=== PATIENT | female | born 1965 | race Hispanic/Latino ===

== ENCOUNTER 2019-02-27 19:32 | Emergency (ER) | payer OTHER, SELFPAY ==
--- OUTSIDE RECORDS SUMMARY | 2019-02-27 19:34 | XMS REPORT ---
:1965 Author Organization [facility] Address [address] [place] [address] Care Team Providers Name Role Phone Unavailable Unavailable Unavailable Problems This patient has no known problems. Allergies, Adverse Reactions, Alerts This patient has no known allergies or adverse reactions. Medications This patient has no known medications. Results Test Description Test Time Test Comments Text Results Atomic Results Result Comments SCR MAMM BILATERAL CAD 2018-12-31 15:50:34 - SCR MAMM BILATERAL CAD DIGITAL DIGITALBILATERAL DIGITAL SCREENING MAMMOGRAM 3D/2D WITH CAD: 12/20/2018CLINICAL: Asymptomatic. Digital breast tomosynthesis was performed in addition to routine CC and MLO views. Current mammographic images were evaluated by either a [employer] M-Vu or a [employer] ImageChecker CAD (computer aided detection system). Comparison is made to exam dated 02/02/2012 mammogram - [facility]. The tissue of both breasts is heterogeneously dense. This may lower the sensitivity of mammography. No suspicious mass, architectural distortion, malignant type calcification, or lymph node abnormality detected. Breast architecture is stable compared to prior exams.IMPRESSION: NEGATIVEThere is no mammographic evidence of malignancy. Resume annual screening mammography in one year. Your patient's mammogram demonstrates that she has dense breast tissue. This can hide abnormalities. In compliance with [place] law ([place]'s Law), your patient has been sent a letter which informs her of her breast density and notifies her that, depending on her individual risk factors for the development of breast cancer, she might benefit from additional screening tests such as ultrasound. Dense breast tissue, in and of itself, is a relatively common condition. Therefore, this information is not provided to cause undue concern, but rather to raise awareness and to promote discussion regarding the presence of other risk factors, in addition to dense breast tissue.Umang blanco/:12/31/2018 15:50:34 Reel Winder: Larissa Sanon MM, [facility] Mammographyletter sent: BIRADS 1-2 Normal Mammogram BI-RADS: 1 Negative
[2019-02-27] MEDS ORDERED: ONDANSETRON 4 MG/2 ML VIAL ONE (23:00)
[2019-02-27] MEDS ORDERED: NA CHLORIDE 0.9% 1,000 ML ONE (23:00)
[2019-02-27] MEDS ORDERED: FAMOTIDINE 20 MG/2 ML VIAL IV ONE (23:13)
[2019-02-27] MEDS ORDERED: KETOROLAC 30 MG/ML INJ ONE (23:13)
[2019-02-27 23:54] LABS: Absolute Lymphocytes (CBC) 0.3 K/uL (0.7-4.9); Absolute Monocytes 0.3 K/uL (0.1-1.3); Absolute Neutrophil 3.2 K/uL (1.8-8.0); Basophils % 0.2 % (0-1.3); Eosinophils % 0.2 % (0-4.4); Lymphocytes % 7.7 % (15.3-44.8); MPV 8.4 fL (7.6-11.3); Monocytes % 6.9 % (3.3-12.3); RBC Red Blood Cell Count 4.28 M/uL (3.86-4.86)
[2019-02-28 00:06] LABS: Albumin 3.3 g/dL (3.4-5.0); Bilirubin Direct 0.2 mg/dL (0-0.2); Bilirubin Total 0.7 mg/dL (0.2-1.0); Potassium 3.4 mmol/L (3.5-5.1); Protein, Total 6.8 g/dL (6.4-8.2)
--- NOTE | 2019-02-28 00:54 | EDPHYS ---
Physician Documentation [facility] Name: Dionne Robledo Age: 53 yrs Sex: Female : 1965 Arrival Date: 02/27/2019 Time: 19:44 Bed 23 Private MD: Hugo Hale ED Physician Juana Faustin HPI: 02/28 00:04 This 53 yrs old Female presents to ER via Ambulatory with complaints of Fever, ma2 Nausea, Diarrhea. 00:04 Onset: The symptoms/episode began/occurred gradually, 2 day(s) ago. Associated signs ma2 and symptoms: Pertinent negatives: abdominal pain, altered mental status, backache, night sweats. Associated signs and symptoms: Pertinent positives: diarrhea. Severity of symptoms: At their worst the symptoms were mild in the emergency department the symptoms are unchanged. The patient has not experienced similar symptoms in the past. 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 - Social history:: Smoking status: Patient uses tobacco products, denies chronic smoking, but will smoke occasionally, Patient uses Patient/guardian denies using alcohol, street drugs, The patient lives with family. - Ebola Screening: : Patient negative for fever greater than or equal to 101.5 degrees Fahrenheit, and additional compatible Ebola Virus Disease symptoms. - Family history:: not pertinent. ROS: 02/28 00:04 Constitutional: Negative for fever, chills, and weight loss. ma2 Abdomen/GI: Positive for diarrhea, Negative for nausea, rectal pain, bowel incontinence. All other systems are negative. Exam: 00:04 Constitutional: This is a well developed, well nourished patient who is awake, alert, ma2 and in no acute distress. Eyes: Pupils equal round and reactive to light, extra-ocular motions intact. Lids and lashes normal. Conjunctiva and sclera are non-icteric and not injected. Cornea within normal limits. Periorbital areas with no swelling, redness, or edema. ENT: Nares patent. No nasal discharge, no septal abnormalities noted. Tympanic membranes are normal and external auditory canals are clear. Oropharynx with no redness, swelling, or masses, exudates, or evidence of obstruction, uvula midline. Mucous membranes moist. Chest/axilla: Normal chest wall appearance and motion. Nontender with no deformity. No lesions are appreciated. Cardiovascular: Regular rate and rhythm with a normal S1 and S2. No gallops, murmurs, or rubs. Normal PMI, no JVD. No pulse deficits. Respiratory: Lungs have equal breath sounds bilaterally, clear to auscultation and percussion. No rales, rhonchi or wheezes noted. No increased work of breathing, no retractions or nasal flaring. Abdomen/GI: Soft, non-tender, with normal bowel sounds. No distension or tympany. No guarding or rebound. No evidence of tenderness throughout. MS/ Extremity: Pulses equal, no cyanosis. Neurovascular intact. Full, normal range of motion. Vital Signs: 02/27 20:14 BP 114 / 79; Pulse 94; Resp 17 S; Temp 100.0(TE); Pulse Ox 96% on R/A; Weight 77.56 kg jd3 (R); Height 5 ft. 4 in. (162.56 cm) (R); Pain 10/10; 02/28 00:26 BP 112 / 76; Pulse 90; Resp 18; Pulse Ox 99% ; Pain 0/10; jl3 02/27 20:14 Body Mass Index 29.35 (77.56 kg, 162.56 cm) jd3 MDM: 02/27 22:27 Patient medically screened. mn2 02/28 00:04 Differential diagnosis: viral Infection, bacterial infection, URI, bronchitis. mn2 00:53 Data reviewed: vital signs, nurses notes. Counseling: I had a detailed discussion with ma2 the patient and/or guardian regarding: the historical points, exam findings, and any diagnostic results supporting the discharge/admit diagnosis, the presence of at least one elevated blood pressure reading (>120/80) during this emergency department visit, the need for outpatient follow up. Response to treatment: the patient's symptoms have resolved after treatment. 02/27 21:02 Order name: Flu; Complete Time: 22:15 snw 02/27 21:02 Order name: Urine Culture [facility] 02/27 21:02 Order name: Urine Microscopic Only [facility] 02/27 22:27 Order name: Basic Metabolic Panel; Complete [facility]: [facility] 02/27 22:27 Order name: CBC with Diff; Complete [facility]: [facility] 02/27 22:27 Order name: Creatinine for Radiology; Complete [facility]: [facility]:41 [facility] 02/27 21:02 Order name: Urine Dipstick-Ancillary (obtain specimen); Complete Time: 00:24 [facility] 02/27 22:27 Order name: Hepatic Function; Complete Time: 00:41 mn2 02/27 22:27 Order name: Lipase; Complete Time: 00:41 [facility] 02/27 23:59 Order name: Urine Dipstick--Ancillary (enter results) 6 02/27 22:27 Order name: IV [facility] 02/27 22:27 Order name: Labs collected and sent [facility] 02/27 23:03 Order name: Labs - recollect needed; Complete Time: 00:23 cm6 Administered Medications: 02/27 22:50 Drug: Zofran 4 mg Route: IVP; Site: right antecubital; 3 02/28 00:23 Follow up: Response: No adverse reaction; Nausea is decreased [facility] 02/27 22:51 Drug: NS 0.9% 1000 ml Route: IV; Rate: 1 bolus; Site: right antecubital; 3 02/28 00:23 Follow up: Response: No adverse reaction; IV Status: Completed infusion; IV Intake: jl3 1000ml 02/27 23:06 Drug: TORadol 30 mg Route: IVP; Site: right antecubital; 3 02/28 00:24 Follow up: Response: No adverse reaction; Pain is decreased [facility] 02/27 23:06 Drug: Pepcid 20 mg Route: IVP; Site: right antecubital; 3 02/28 00:24 Follow up: Response: No adverse reaction; Nausea is decreased [facility] Disposition: 02/28/19 00:53 Discharged to Home. Impression: Diarrhea, unspecified. - Condition is Stable. - Discharge Instructions: Food Choices to Help Relieve Diarrhea, Adult, Diarrhea, Adult. - Prescriptions for Zofran 4 mg Oral Tablet - take 1 tablet by ORAL route every 12 hours As needed; 20 tablet. Pepcid 20 mg Oral Tablet - take 1 tablet by ORAL route once daily for 10 days; 10 tablet. - Medication Reconciliation Form, Thank You Letter, Antibiotic Education, Prescription Opioid Use form. - Follow up: Private Physician; When: Tomorrow; Reason: Continuance of care. Signatures: Dispatcher [employer] EDNM Anne Goodman, CHANO-C CONCRETE FORM SETTER-Csnw Cesar Osorio RN RN jl3 Ervin Rendon RN RN jd3 Juana Faustin MD MD ma2 Carline Sheldon 6 Corrections: (The following items were deleted from the chart) 02:19 00:53 02/28/2019 00:53 Discharged to Home. Impression: Diarrhea, unspecified. Condition jl3 is Stable. Forms are Medication Reconciliation Form, Thank You Letter, Antibiotic Education, Prescription Opioid Use. Follow up: Private Physician; When: Tomorrow; Reason: Continuance of care. ma2
--- NOTE | 2019-02-28 00:54 | ER ---
Nurse's Notes [facility] Name: Dionne Robledo Age: 53 yrs Sex: Female : 1965 Arrival Date: 02/27/2019 Time: 19:44 Bed 23 Private MD: Hugo Hale Diagnosis: Diarrhea, unspecified Presentation: 02/27 20:12 Presenting complaint: Patient states: "I have been running fevers at home and stomach jd3 pain/throwing up and diarrhea.". Transition of care: patient was not received from another setting of care. Onset of symptoms was February 27, 2019. Risk Assessment: Do you want to hurt yourself or someone else? Patient reports no desire to harm self or others. Initial Sepsis Screen: Does the patient meet any 2 criteria? No. Patient's initial sepsis screen is negative. Does the patient have a suspected source of infection? No. Patient's initial sepsis screen is negative. Care prior to arrival: None. 20:12 Method Of Arrival: Ambulatory jd3 20:12 Acuity: ANDRÉS 3 jd3 Triage Assessment: 02/28 02:17 General: Appears uncomfortable, obese, Behavior is calm, cooperative. Pain: Complains jl3 of pain in abdomen. EENT: No deficits noted. Neuro: No deficits noted. Cardiovascular: No deficits noted. Respiratory: Reports cough that is productive. GI: Bowel sounds present X 4 quads. Reports upper abdominal pain, nausea. : No deficits noted. Derm: No deficits noted. Musculoskeletal: No deficits noted. 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 - Social history:: Smoking status: Patient uses tobacco products, denies chronic smoking, but will smoke occasionally, Patient uses Patient/guardian denies using alcohol, street drugs, The patient lives with family. - Ebola Screening: : Patient negative for fever greater than or equal to 101.5 degrees Fahrenheit, and additional compatible Ebola Virus Disease symptoms. - Family history:: not pertinent. Screenin/05 02:16 Abuse screen: none noted. Nutritional screening: No deficits noted. Tuberculosis jl3 screening: No symptoms or risk factors identified. Fall Risk None identified. Assessment: 00:24 General: Pt c/o generalized pain, malaise, nausea. States has not felt well since jl3 Sunday.. Pain: Complains of pain in chest and abdomen. Neuro: No deficits noted. Cardiovascular: No deficits noted. Respiratory: No deficits noted. GI: Abdomen is round non-distended, Reports nausea. : No deficits noted. EENT: No deficits noted. Derm: No deficits noted. Musculoskeletal: No deficits noted. Vital Signs: 02/27 20:14 BP 114 / 79; Pulse 94; Resp 17 S; Temp 100.0(TE); Pulse Ox 96% on R/A; Weight 77.56 kg jd3 (R); Height 5 ft. 4 in. (162.56 cm) (R); Pain 10/10; 02/28 00:26 BP 112 / 76; Pulse 90; Resp 18; Pulse Ox 99% ; Pain 0/10; jl3 02/27 20:14 Body Mass Index 29.35 (77.56 kg, 162.56 cm) jd3 ED Course: 02/27 19:44 Patient arrived in ED. am2 19:45 Hugo Hale MD is Private Physician. am2 20:13 Triage completed. jd3 20:16 Arm band placed on Patient notified of wait time. jd3 22:26 Juana Faustin MD is Attending Physician. ma2 22:34 Al Arias, JAHAIRA is Primary Nurse. jb4 02/28 02:18 Patient has correct armband on for positive identification. jl3 02:18 No provider procedures requiring assistance completed. intact, bleeding controlled, No jl3 redness/swelling at site. Pressure dressing applied. Administered Medications: 02/27 22:50 Drug: Zofran 4 mg Route: IVP; Site: right antecubital; jl3 02/28 00:23 Follow up: Response: No adverse reaction; Nausea is decreased jl3 02/27 22:51 Drug: NS 0.9% 1000 ml Route: IV; Rate: 1 bolus; Site: right antecubital; jl3 02/28 00:23 Follow up: Response: No adverse reaction; IV Status: Completed infusion; IV Intake: jl3 1000ml 02/27 23:06 Drug: TORadol 30 mg Route: IVP; Site: right antecubital; jl3 02/28 00:24 Follow up: Response: No adverse reaction; Pain is decreased jl3 02/27 23:06 Drug: Pepcid 20 mg Route: IVP; Site: right antecubital; jl3 02/28 00:24 Follow up: Response: No adverse reaction; Nausea is decreased jl3 Intake: 00:23 IV: 1000ml; Total: 1000ml. jl3 Outcome: 00:53 Discharge ordered by . [email or web address] 02:18 Discharged to home ambulatory. jl3 02:18 Condition: good 02:18 Discharge instructions given to patient, Prescriptions given X 2. 02:19 Patient left the ED. jl3 Signatures: Cesar Osorio RN RN jl3 Al Arias RN RN jb4 Patricia Merino Jonathon, RN RN jd3 Juana Faustin MD MD ma2 Corrections: (The following items were deleted from the chart) 02/27 20:16 20:16 Arm band placed on jd3 jd3
[2019-02-28 01:18] LABS: Urine Bacteria <20 /HPF (<20); Urine Culture Reflex Order NOT NEEDED
[2019-02-28 01:19] LABS: Urine Blood 2+ (NEG); Urine Glucose NEGATIVE (NEG); Urine Protein 2+ (NEG); Urine pH 5.5 (5.0-7.0)
[2019-02-28 02:30] VITALS: TEMP 100
[2019-02-28 02:31] VITALS: BP 112/76; O2SAT 99
== END 2019-02-28 02:19 | disposition home or self-care (01) ==
LOC: ER 19:32
DX: R19.7 Diarrhea, unspecified (principal); Z86.73 Personal history of transient ischemic attack (TIA), and cerebral infarction without residual deficits; Z88.5 Allergy status to narcotic agent; Z72.0 Tobacco use
CPT/HCPCS: 36415; 80048; 80076; 81003; 81015; 83690; 85025; 87086; 87088; 87804; 96361; 96374; 96375; 99283; J2405; J7030

== ENCOUNTER 2020-01-25 08:29 | Emergency (ER) | payer OTHER, SELFPAY ==
[2020-01-25 09:24] LABS: Protime INR 1.06
[2020-01-25 09:25] LABS: Absolute Lymphocytes (CBC) 0.9 K/uL (0.7-4.9); Hematocrit 41.8 % (36.0-45.0); MPV 8.3 fL (7.6-11.3); RBC Red Blood Cell Count 4.58 M/uL (3.86-4.86)
[2020-01-25 09:37] LABS: ALT/SGPT 21 U/L (12-78); AST/SGOT 13 U/L (15-37); Albumin 3.8 g/dL (3.4-5.0); Alkaline Phosphatase 133 U/L (45-117); BUN Blood Urea Nitrogen 13 mg/dL (7-18); Bicarbonate 27 mmol/L (21-32); Bilirubin Direct 0.1 mg/dL (0-0.2); Bilirubin Total 0.5 mg/dL (0.2-1.0); Glucose Level 100 mg/dL (74-106); Magnesium 2.1 mg/dL (1.8-2.4); NT PRO-BNP 70 pg/mL (<125); Potassium 3.9 mmol/L (3.5-5.1); Protein, Total 7.8 g/dL (6.4-8.2); Sodium Level 141 mmol/L (136-145); Troponin (Emerg Dept Use Only) < 0.02 ng/mL (0.0-0.045)
--- NOTE | 2020-01-25 09:58 | RAD REPORT ---
EXAM DESCRIPTION: CT - Head Brain Wo Cont - 01/25/2020 9:31 am CLINICAL HISTORY: Right arm numbness Headache, drowsiness COMPARISON: HEAD BRAIN W O CONTRAST dated 02/04/2014; HEAD BRAIN W O CONTRAST dated 07/23/2010 TECHNIQUE: All CT scans are performed using dose optimization technique as appropriate and may inclu de automated exposure control or mA/KV adjustment according to patient size. FINDINGS: No intracranial hemorrhage, hydrocephalus or extra-axial fluid collection.Gliosis is seen right frontotemporal region, unchanged, likely attributable to prior infarction.No areas of brain sumanth ma or evidence of midline shift. The paranasal sinuses and mastoids are clear. The calvarium is intact. Generalized osteosclerosis is identified. IMPRESSION: No acute intracranial abnormality.
[2020-01-25] MEDS ORDERED: KETOROLAC 30 MG/ML INJ ONE (10:26)
--- NOTE | 2020-01-25 11:49 | ER ---
Nurse's Notes [facility] Name: Dionne Robledo Age: 54 yrs Sex: Female : 1965 Arrival Date: 01/25/2020 Time: 08:31 Bed 7 Private MD: Diagnosis: Paresthesia of skin;Strain of muscle, fascia and tendon at neck level Presentation: 01/24 08:41 Chief complaint: Patient states: started with a knot in right jaw about a week ago, iw since then has had numbness to right arm from shoulder down to hand , also has had pain in right arm to where she can;t sleep, denies weakness. Coronavirus screen: The patient has NOT traveled to [place] in the past 14 days. Proceed with normal triage procedures. Ebola Screen: Patient negative for fever greater than or equal to 101.5 degrees Fahrenheit, and additional compatible Ebola Virus Disease symptoms Patient denies exposure to infectious person. Patient denies travel to an Ebola-affected area in the 21 days before illness onset. No symptoms or risks identified at this time. Initial Sepsis Screen: Does the patient meet any 2 criteria? No. Patient's initial sepsis screen is negative. Does the patient have a suspected source of infection? No. Patient's initial sepsis screen is negative. Risk Assessment: Do you want to hurt yourself or someone else? Patient reports no desire to harm self or others. 08:41 Method Of Arrival: Ambulatory iw 08:41 Acuity: ANDRÉS 3 iw Historical: - Allergies: 08:44 Codeine; iw - Home Meds: 08:44 None [Active]; iw - PMHx: 08:44 CVA; iw 08:44 hepatitis C resolved; iw - PSHx: 08:44 Cholecystectomy; Appendectomy; Left ankle; iw - Immunization history:: Adult Immunizations not up to date. - Social history:: Smoking status: . Screenin:50 Abuse screen: Denies threats or abuse. Nutritional screening: No deficits noted. aa5 Tuberculosis screening: No symptoms or risk factors identified. 09:20 Fall Risk Secondary diagnosis (15 points) CVA, IV access (20 points). aa5 Assessment: 08:50 General: Appears comfortable, Behavior is calm, cooperative. Pain: Complains of pain in aa5 right arm Pain does not radiate. Pain currently is 9 out of 10 on a pain scale. Quality of pain is described as numb, Is continuous. Neuro: Level of Consciousness is awake, alert, obeys commands, Oriented to person, place, time, situation, Center Medical Specialist are equal bilaterally Moves all extremities. Speech is normal, Facial symmetry appears normal, Pupils are PERRLA, Reports numbness in right arm. Cardiovascular: Heart tones S1 S2 present Rhythm is regular. Respiratory: Airway is patent Respiratory effort is even, unlabored, Respiratory pattern is regular, symmetrical. GI: No signs and/or symptoms were reported involving the gastrointestinal system. : No signs and/or symptoms were reported regarding the genitourinary system. EENT: No signs and/or symptoms were reported regarding the EENT system. Derm: Skin is pink, warm \T\ dry. Musculoskeletal: Range of motion: intact in all extremities. 10:15 Reassessment: Patient is alert, oriented x 3, equal unlabored respirations, skin aa5 warm/dry/pink. Pt requesting pain medication at this time. Pt's sister at bedside. KEEPER HELPER notified of increased pain. . General: Appears comfortable. Pain: Pain currently is 10 out of 10 on a pain scale. 11:00 Reassessment: Patient is alert, oriented x 3, equal unlabored respirations, skin aa5 warm/dry/pink. Patient states feeling better. Vital Signs: 08:41 BP 124 / 79; Pulse 61; Resp 16; Temp 98.3; Pulse Ox 97% on R/A; Weight 81.65 kg; Height iw 5 ft. 4 in. (162.56 cm); Pain 9/10; 10:15 BP 127 / 77; Pulse 54; Resp 18 S; Pulse Ox 96% on R/A; Pain 10/10; aa5 11:30 BP 130 / 74; Pulse 58; Resp 16 S; Pulse Ox 99% on R/A; aa5 08:41 Body Mass Index 30.90 (81.65 kg, 162.56 cm) iw ED Course: 08:31 Patient arrived in ED. rg4 08:43 Triage completed. iw 08:45 Bhargav Weaver NP is PHCP. pm1 08:45 Edinson Rod MD is Attending Physician. pm1 08:50 Patient has correct armband on for positive identification. Placed in gown. Bed in low aa5 position. Call light in reach. Side rails up X2. pharmaceutical engineer on. Pulse ox on. NIBP on. 08:50 Arm band placed on. aa5 08:52 Melanie Singleton, RN is Primary Nurse. aa5 09:07 XRAY Chest (1 view) In Process Unspecified. EDMS 09:11 Initial lab(s) drawn, by me, sent to lab. EKG done, by ED staff, reviewed by Bhargav Weaver KEEPER HELPER. Inserted saline lock: 22 gauge in right antecubital area, using aseptic technique. Blood collected. 09:31 CT Head Brain wo Cont In Process Unspecified. EDMS 09:31 CT completed. Patient tolerated procedure well. Patient moved back from CT. bq 12:15 No provider procedures requiring assistance completed. IV discontinued, intact, aa5 bleeding controlled, No redness/swelling at site. Pressure dressing applied. Administered Medications: 10:24 Drug: TORadol 30 mg Route: IVP; Site: right antecubital; aa5 11:00 Follow up: Response: No adverse reaction; Pain is decreased aa5 Outcome: 11:48 Discharge ordered by MD. pm1 12:15 Discharged to home ambulatory, with family. aa5 12:15 Condition: stable 12:15 Discharge instructions given to patient, Instructed on discharge instructions, follow up and referral plans. medication usage, Demonstrated understanding of instructions, follow-up care, medications, Prescriptions given X 2. 12:17 Patient left the ED. iw Signatures: Dispatcher [employer] EDCesar Swan Betty bq Williams, Irene, RN RN Melanie Singleton, JAHAIRA RN aaBhargav Calderón NP KEEPER HELPER pm1 Radha Ma rg4 Corrections: (The following items were deleted from the chart) 08:45 08:41 BP 124 / 79; Pulse 61bpm; Resp 16bpm; Pulse Ox 97% RA; iw iw
--- NOTE | 2020-01-25 11:49 | EDPHYS ---
Physician Documentation [facility] Name: Dionne Robledo Age: 54 yrs Sex: Female : 1965 Arrival Date: 01/25/2020 Time: 08:31 Bed 7 Private MD: Edinson Abdalla HPI: 01/24 09:16 This 54 yrs old Female presents to ER via Ambulatory with complaints of pm1 Numbness and Pain Of Right Arm. 09:16 The patient or guardian complains of pain, numbness. The complaints affect the right pm1 arm. Context: Patient notes that pain and numbness is present in the morning and resolves when she goes to work. It returns just before her work ends for the day around 3-4 PM. this has been the pattern for the past 7 days. Onset: The symptoms/episode began/occurred 1 week(s) ago. Treatment prior to arrival includes: no previous treatment. Modifying factors: The symptoms are alleviated by working and movement of arm. Associated signs and symptoms: Pertinent negatives: decreased range of motion, fever, Weakness of right arm, trauma, headache. It is unknown whether or not the patient has recently seen a physician. Historical: - Allergies: 08:44 Codeine; iw - Home Meds: 08:44 None [Active]; iw - PMHx: 08:44 CVA; iw 08:44 hepatitis C resolved; iw - PSHx: 08:44 Cholecystectomy; Appendectomy; Left ankle; iw - Immunization history:: Adult Immunizations not up to date. - Social history:: Smoking status: . ROS: 09:16 Constitutional: Negative for fever, chills, and weight loss, Eyes: Negative for injury, pm1 pain, redness, and discharge, ENT: Negative for injury, pain, and discharge, Neck: Negative for injury, pain, and swelling, Cardiovascular: Negative for chest pain, palpitations, and edema, Respiratory: Negative for shortness of breath, cough, wheezing, and pleuritic chest pain, Abdomen/GI: Negative for abdominal pain, nausea, vomiting, diarrhea, and constipation, Back: Negative for injury and pain. 09:16 Skin: Negative for injury, rash, and discoloration, Neuro: Negative for headache, weakness, and seizure. 09:16 MS/extremity: Positive for pain, paresthesias, of the right arm, Negative for injury or acute deformity, decreased range of motion. Exam: 09:16 Constitutional: This is a well developed, well nourished patient who is awake, alert, pm1 and in no acute distress. Head/Face: Normocephalic, atraumatic. Chest/axilla: Normal chest wall appearance and motion. Nontender with no deformity. No lesions are appreciated. Cardiovascular: Regular rate and rhythm with a normal S1 and S2. No gallops, murmurs, or rubs. Normal PMI, no JVD. No pulse deficits. Respiratory: Lungs have equal breath sounds bilaterally, clear to auscultation and percussion. No rales, rhonchi or wheezes noted. No increased work of breathing, no retractions or nasal flaring. Abdomen/GI: Soft, non-tender, with normal bowel sounds. No distension or tympany. No guarding or rebound. No evidence of tenderness throughout. 09:16 Back: No spinal tenderness. No costovertebral tenderness. Full range of motion. Skin: Warm, dry with normal turgor. Normal color with no rashes, no lesions, and no evidence of cellulitis. MS/ Extremity: Pulses equal, no cyanosis. Neurovascular intact. Full, normal range of motion. 09:16 Neck: External neck: tenderness, of the right trapezius. 09:16 Neuro: Orientation: is normal, Mentation: is normal, Motor: is normal, moves all fours, Sensation: is normal, no obvious gross deficits, Gait: is steady, at a normal pace, without difficulty. Vital Signs: 08:41 BP 124 / 79; Pulse 61; Resp 16; Temp 98.3; Pulse Ox 97% on R/A; Weight 81.65 kg; Height iw 5 ft. 4 in. (162.56 cm); Pain 9/10; 10:15 BP 127 / 77; Pulse 54; Resp 18 S; Pulse Ox 96% on R/A; Pain 10/10; aa5 11:30 BP 130 / 74; Pulse 58; Resp 16 S; Pulse Ox 99% on R/A; aa5 08:41 Body Mass Index 30.90 (81.65 kg, 162.56 cm) iw MDM: 08:45 Patient medically screened. pm1 11:47 Data reviewed: vital signs. Data interpreted: Pulse oximetry: on room air is 96 %. pm1 Interpretation: normal. 11:47 Counseling: I had a detailed discussion with the patient and/or guardian regarding: the pm1 historical points, exam findings, and any diagnostic results supporting the discharge/admit diagnosis, lab results, radiology results, the need for outpatient follow up, to return to the emergency department if symptoms worsen or persist or if there are any questions or concerns that arise at home. 01/24 08:54 Order name: Basic Metabolic Panel; Complete Time: 10:06 pm1 01/24 08:54 Order name: CBC with Diff; Complete Time: 10:06 pm1 01/24 08:54 Order name: LFT's; Complete Time: 10:06 pm1 01/24 08:54 Order name: Magnesium; Complete Time: 10:06 pm1 01/24 08:54 Order name: NT PRO-BNP; Complete Time: 10:06 pm1 01/24 08:54 Order name: PT-INR; Complete Time: 10:06 pm1 01/24 08:54 Order name: CT Head Brain wo Cont; Complete Time: 10:06 pm1 01/24 08:54 Order name: Troponin (emerg Dept Use Only); Complete Time: 10:06 pm1 01/24 08:54 Order name: XRAY Chest (1 view); Complete Time: 12:38 pm1 01/24 08:54 Order name: EKG; Complete Time: 08:56 pm1 01/24 08:54 Order name: Cardiac monitoring; Complete Time: 09:11 pm1 01/24 08:54 Order name: EKG - Nurse/Tech; Complete Time: 09:12 pm1 01/24 08:54 Order name: IV Saline Lock; Complete Time: 09:12 pm01/24 08:54 Order name: Labs collected and sent; Complete Time: 09:12 pm1 01/24 08:54 Order name: O2 Per Protocol; Complete Time: 09:12 pm1 01/24 08:54 Order name: O2 Sat Monitoring; Complete Time: 09:12 pm1 Administered Medications: 10:24 Drug: TORadol 30 mg Route: IVP; Site: right antecubital; aa5 11:00 Follow up: Response: No adverse reaction; Pain is decreased aa5 Disposition: 18:10 Co-signature as Attending Physician, Edinson Rod MD I agree with the assessment and sindi plan of care. Disposition: 01/25/20 11:48 Discharged to Home. Impression: Paresthesia of skin, Strain of muscle, fascia and tendon at neck level. - Condition is Stable. - Discharge Instructions: Cervical Radiculopathy, Muscle Strain, Paresthesia. - Prescriptions for Diclofenac Sodium 75 mg Oral Tablet, Delayed Release (E.C.) - take 1 tablet by ORAL route 2 times per day As needed; 30 tablet. Medrol (Carlos) 4 mg Oral Tablets, Dose Pack - take 1 tablet by ORAL route as directed - follow package instructions; 1 packet. - Medication Reconciliation Form, Thank You Letter, Antibiotic Education, Prescription Opioid Use form. - Follow up: Emergency Department; When: As needed; Reason: Worsening of condition. Follow up: Private Physician; When: 2 - 3 days; Reason: Recheck today's complaints, Continuance of care, Re-evaluation by your physician. Signatures: Dispatcher [employer] Edinson Astorga MD MD cha Williams, Irene, RN RN iw Calderon, Audri, RN RN aa5 Bhargav Weaver NP SANDER PORTABLE MACHINE pm1 Corrections: (The following items were deleted from the chart) 12:17 11:48 01/25/2020 11:48 Discharged to Home. Impression: Paresthesia of skin; Strain of iw muscle, fascia and tendon at neck level. Condition is Stable. Forms are Medication Reconciliation Form, Thank You Letter, Antibiotic Education, Prescription Opioid Use. Follow up: Emergency Department; When: As needed; Reason: Worsening of condition. Follow up: Private Physician; When: 2 - 3 days; Reason: Recheck today's complaints, Continuance of care, Re-evaluation by your physician. pm1
--- NOTE | 2020-01-25 12:15 | RAD REPORT ---
EXAM DESCRIPTION: RAD - Chest Single View - 01/25/2020 9:04 am CLINICAL HISTORY: right arm numbness Chest pain. COMPARISON: CHEST SINGLE VIEW dated 02/04/2014; CHEST SINGLE VIEW dated 05/21/2012; CHEST SINGLE VIEW dated 07/23/2010 FINDINGS: Portable technique limits examination quality. The lungs are grossly clear. The heart is normal in size. No displaced fractures.Diffuse osteoscleros is again noted, nonspecific. IMPRESSION: No acute intrathoracic process suspected.
[2020-01-25 12:24] VITALS: TEMP 98.3
[2020-01-25 12:26] VITALS: BP 127/77; O2SAT 96
--- NOTE | 2020-01-26 15:36 | EKG ---
Test Date: 2020-01-25 Test Time: 09:04:27 Windows Security Engineer: CRISTAL MEASUREMENT RESULTS: Intervals: Rate: 53 VA: 158 QRSD: 84 QT: 390 QTc: 365 Pickrell: P: 40 VA: 158 QRS: -21 T: 1 INTERPRETIVE STATEMENTS: Sinus bradycardia Abnormal ECG Compared to ECG 02/04/2014 11:51:24 Sinus rhythm no longer present Electronically Signed On 01-26-20 15:35:38 SENIOR ELECTRONICS DESIGN ENGINEER by Farshad Fowler
== END 2020-01-25 12:17 | disposition home or self-care (01) ==
LOC: ER 08:29
DX: R20.2 Paresthesia of skin (principal); S16.1XXA Strain of muscle, fascia and tendon at neck level, initial encounter; X58.XXXA Exposure to other specified factors, initial encounter; Z88.6 Allergy status to analgesic agent
CPT/HCPCS: 36415; 70450; 71045; 80048; 80076; 83735; 83880; 84484; 85025; 85610; 93005; 96374; 99285

== ENCOUNTER 2020-05-11 09:50 | Emergency (ER) | payer OTHER ==
[2020-05-11] MEDS ORDERED: FOLIC ACID 5 MG/ML VIAL ONE (10:36)
[2020-05-11] MEDS ORDERED: NA CHLORIDE 0.9% 1,000 ML ONE (10:36)
--- NOTE | 2020-05-11 11:06 | RAD REPORT ---
EXAM DESCRIPTION: CT - Head Brain Wo Cont - 05/11/2020 10:54 am CLINICAL HISTORY: CVA COMPARISON: Head Brain Wo Cont dated 01/25/2020 TECHNIQUE: Axial 5 mm thick images of the head were obtained without IV contrast. All CT scans are performed using dose optimization technique as appropriate and may include automated exposure control or mA/KV adjustment according to patient size. FINDINGS: No intracranial hemorrhage, mass, edema or shift of mid-line structures. No acute cortical based infarction is identified. No cortical edema or sulcal effacement. Approximately 5 centimeter a chandan of encephalomalacia is present in the right frontal lobe and minimally in the anterior temporal l obe. Right lateral ventricle has enlarged in proportion to the volume loss. This old CVA finding is s imilar to the January 2020 study. An 11 millimeter area of decreased attenuation is present in the posterior limb internal capsule and lateral thalamus region on the right. This is on the boundary of the old CVA. Patient has additional minimal scattered areas of diminished attenuation along the boundary of the old infarction. Scattered chronic ischemic changes are present. No atrophy seen. Mastoid air cells and visualized portions of the paranasal sinuses are clear. No acute bony findings. IMPRESSION: No hemorrhage is present and no acute cortical infarction identifiable. Decreased attenuation in the right posterior limb internal capsule region is potentially nonhemorrhag ic acute CVA. This is on the boundary of the old infarction. Approximately 5 centimeter area of encephalomalacia from prior CVA is present in the right frontal lo be. Finding is not substantially different from January 2020. Additional small areas of nonhemorrhagic white matter infarction could be obscured by the chronic sindi nges. Follow-up MRI imaging would be recommended.
--- NOTE | 2020-05-11 11:31 | RAD REPORT ---
EXAM DESCRIPTION: MRI - Brain Wo Cont - 05/11/2020 11:18 am CLINICAL HISTORY: R/O CVA COMPARISON: MR STROKE PROTOCOL dated 07/25/2010; Head Brain Wo Cont dated 05/11/2020 TECHNIQUE: Sagittal T1-weighted images were obtained along with axial PD, heavily T2-weighted and T2 -FLAIR images. Axial DWI and ADC mapping sequences were also obtained along with coronal heavily T2-w eighted images. FINDINGS: No acute infarction changes are present and no intracranial hemorrhage, mass or edema. The re is no edema or shift of midline structures. Large area of encephalomalacia is present centered in the right frontal lobe. This is similar to prior imaging. Right lateral ventricle has enlarged in pro portion to the volume loss. No significant atrophy or chronic ischemic changes seen. Isbell-matter/whit e matter junction is preserved. Signal voids are seen in the major venous sinuses. Normal flow voids seen in the anterior cerebral arteries and left middle cerebral artery. Truncation of the right middl e cerebral artery is suspected. Posterior cerebral artery flow voids are seen. No globe or orbital content abnormality. Mastoid air cells are clear. Mucosal thickening seen in the left side sphenoid sinus. IMPRESSION: No acute infarction changes are identifiable. Old right frontal CVA changes are noted. 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
--- OUTSIDE RECORDS SUMMARY | 2020-05-11 11:59 | XMS REPORT | Summary of Care ---
:1965 Author Organization [facility] Address [address] [place] [address] Care Team Providers Name Role Phone Dante Castro Darlene Primary Care Provider Reason for Visit Reason Comments Follow-up Encounter Details Date Type Department Care Team Description 04/16/2020 Telemedicine Visit [facility] O'Shakila, Hepatitis C virus infection without hepatic coma, unspecified chronicity (Primary Dx); Gastroenterology-LUCIA Qiu Fatty liver [address] [place] [address] [address] [phone] [place], [place] [phone] (Fax) [phone] Allergies Active Allergy Reactions Severity Noted Date Comments Codeine Nausea and/or Vomiting 05/16/2018 documented as of this encounter (statuses as of 04/16/2020) Medications Medication Sig Dispensed Refills Start Date End Date Status dicyclomine (BENTYL) 20 Take 1 tablet by 30 tablet 0 8 Active mg tablet mouth 4 (four) times daily as needed for Abdominal pain for up to 30 doses. aspirin 81 mg chewable Take 81 mg by 0 Active tablet mouth daily. phenazopyridine 200 mg Take 1 tablet by 9 tablet 0 05/19/2019 Active tabletIndications: mouth 3 (three) Acute cystitis with times daily as hematuria needed for Pain. ibuprofen 600 mg Take 1 tablet by 30 tablet 0 05/19/2019 Active tabletIndications: mouth every 6 Acute cystitis with (six) hours as hematuria needed for Pain (scale 4-6). documented as of this encounter (statuses as of 04/16/2020) Active Problems Problem Noted Date Chronic hepatitis C virus infection 08/22/2019 documented as of this encounter (statuses as of 04/16/2020) Social History Tobacco Use Types Packs/Day Years Used Date Current Some Day Smoker Smokeless Tobacco: Current User Alcohol Use Drinks/Week oz/Week Comments Yes Sex Assigned at Date Recorded Not on file Job Start Date Occupation Industry Not on file Not on file Not on file Travel History Travel Start Travel End No recent travel history available. documented as of this encounter Last Filed Vital Signs Not on filedocumented in this encounter Progress Notes Malka Franco PA - 04/16/2020 3:00 PM CDT TELEHEALTH NOTE Verbal consent obtained from Patient: Dionne Robledo for telehealth services provided below. Communication with patient was conducted via telephone Location of Patient: Home Location of Provider: Office Date of Service: 04/16/2020 Chief Complaint: HCV, routine f/u, recently dx per routine labs, she completed 8 wks of Mavyret on Jan 11, she tolerated tx well, no side effects, her energy has improved, virus possiblyacquired s/s to multtattoos dating back to age 13 vs ex-boy friend in the late 80's who was [employer] user, she recalls being told years ago her liver tests were elevated, butdoes not go to doctor often d/t lack ofinsurance, no hx icterus/edema/gi bleeding/change bm/AMS MEDICATIONS: Outpatient Medications Marked as Taking for the 04/16/20 encounter (Telemedicine Visit) with Malka Franco PA Medication Sig Dispense Refill ibuprofen 600 mg tablet Take 1 tablet by mouth every 6 (six) hours as needed for Pain (scale 4-6). 30 tablet 0 phenazopyridine 200 mg tablet Take 1 tablet by mouth 3 (three) times daily as needed for Pain. 9tablet 0 aspirin 81 mg chewable tablet Take 81 mg by mouth daily. dicyclomine (BENTYL) 20 mg tablet Take 1 tablet by mouth 4 (four) times daily as needed for Abdominal pain for up to 30 doses. 30 tablet 0 ROS CONSTITUTIONAL: no fever/chills/night sweats ENT: no icterus/epistasis RESP: no dyspnea/cough GI: no N/V/D/C/change bm/GIB MS: no joint pain SKIN: no pruritis/rash NEURO: no seizure/LOC HEME: no bruising/prolong bleeding TELEHEALTH EXAM GEN: alert and oriented, NAD RESP: breathing comfortably Neuro: answer questions appropriately, speech is clear Psych: normal affect, mentation is clear ASSESSMENT HCV 1a s/p Mavyret x 8wks w/EOT response Elevated alk phos (all bone) Fatty liver - OSH US 12/14 S/P cholecytectomy PLAN Labs to check for SVR (next week w/[facility]) OSH abd US reviewed Recommend f/u with [facility] for HAV/HBV vaccine series and further f/u of elevated alk phos F/U 1yr (sooner if virus relapses) After visit summary (AVS ) documentation will be available through [employer] for this encounter. A total of minutes was spent on the telephone with the patient. documented in this encounter Plan of Treatment Name Type Priority Associated Diagnoses Order S chedule HEPATIC FUNCTION PANEL LAB Routine Hepatitis C virus Expected: 04/16/2020, ([id number]) (ALB,T.PRO,BILI infection without hepatic Expires: 04/16/2021 T,BU/BC,ALT,AST,ALK coma, unspecified PHOS) chronicity Fatty liver HCV BY PCR LAB Routine Hepatitis C virus Expected: 04/16/2020, infection without hepatic Ex gabriela: 04/16/2021 coma, unspecified chronicity Fatty liver Health Maintenance Due Date Last Done Comments HEPATITIS C (HCV) SCREEN 1965 PNEUMOCOCCAL 0-64 YEARS COMBINED SERIES (1 of 1 - 1971 PPSV23) DTaP,Tdap,and Td Vaccines (1 - Tdap) 1976 PAP SMEAR 1986 Breast Cancer Screening (MAMMOGRAM) 2005 COLONOSCOPY 2015 Zoster Recombinant Vaccine (SHINGRIX) (1 of 2) 2015 INFLUENZA VACCINE (Season Ended) 2020 documented as of this encounter Results Not on filedocumented in this encounter Visit Diagnoses Diagnosis Hepatitis C virus infection without hepa tic coma, unspecified chronicity - Primary Fatty liver Other chronic nonalcoholic liver disease documented in this encounter
--- OUTSIDE RECORDS SUMMARY | 2020-05-11 11:59 | XMS REPORT | Summary of Care ---
:1965 Author Organization [facility] Address [address] [place] [address] Care Team Providers Name Role Phone Dante Castro Primary Care Provider Encounter Details Date Type Department Care Team Description 02/16/2020 Orders Only [facility] Doctor Unassigned, No [address] [facility] [place] [address] [address] [place] [address] Allergies Active Allergy Reactions Severity Noted Date Comments Codeine Nausea and/or Vomiting 05/16/2018 documented as of this encounter (statuses as of 02/16/2020) Medications Medication Sig Dispensed Refills Start Date [...] as of this encounter (statuses as of 02/16/2020) Active Problems Problem Noted Date Chronic hepatitis C virus infection 08/22/2019 documented as of this encounter (statuses as of 02/16/2020) Social History Tobacco Use Types Packs/Day Years [...] Signs Not on filedocumented in this encounter Plan of Treatment Date Type Specialty Care Team Description 04/16/2020 Office Visit Gastroenterology OVarsha Boyd, PA [address] [place] [id number] Health Maintenance Due Date Last Done Comments HEPATITIS C (HCV) SCREEN 1965 PNEUMOCOCCAL 0-64 YEARS COMBINED SERIES (1 of 1 - 1971 PPSV23) DTaP,Tdap,and Td Vaccines (1 - Tdap) 1976 PAP SMEAR 1986 Breast Cancer Screening (MAMMOGRAM) 2005 COLONOSCOPY 2015 Zoster Recombinant Vaccine (SHINGRIX) (1 of 2) 2015 INFLUENZA VACCINE (#1) 2019 documented as of this encounter Procedures Procedure Name Priority Date/Time Associated Diagnosis Comme nts EXTERNAL PROVIDER Routine 02/16/2020 12:01 AM CDT RECORDS documented in this encounter Results Not on filedocumented in this encounter
--- OUTSIDE RECORDS SUMMARY | 2020-05-11 11:59 | XMS REPORT | Continuity of Care Document ---
:1965 Author Organization [facility] t Address [address] [place] [address] Care Team Providers Name Role Phone Joan MYERS Attending Clinician Doctor Unassigned, Name Attending Clinician Unavailable Problems This patient has no known problems. Allergies, Adverse Reactions, Alerts This patient has no known allergies or adverse reactions. Medications This patient has no known medications. Procedures This patient has no known procedures. Encounters Start End Encounter Admission Attending Care Care Encounter Source Date/Time Date/Time Type Type Clinicians Facility Department ID 2020-04-22 2020-04-22 Telephone YARON Franco [id number] 00:00:00 00:00:00 [facility] [id number] [place] [id number] 2020-04-16 2020-04-16 Telemedici YARON Franco [id number] 07:41:39 08:11:39 ne Visit [facility] [id number] 2020-02-16 2020-02-16 Orders Doctor GIANG [id number] 00:00:00 00:00:00 Only Unassigned, KIRA [id number] [place] [id number] 2020-01-29 2020-01-29 Orders Doctor RAHAT [id number] 00:00:00 00:00:00 Only Unassigned, KIRA [id number] [place] [facility] [id number] 2020-01-27 2020-01-27 Telephone YARON Franco [id number] 00:00:00 00:00:00 [facility] [id number] 2020-01-22 2020-01-22 Telephone ODeb [facility] [id number] 00:00:00 00:00:00 [facility] [id number] Results Test Description Test Time Test Comments Results Result [facility] e Comments SCR MAMM 2018-12-31 - SCR MAMM BILATERAL BILATERAL CAD 15:50:34 CAD DIGITALBILATERAL DIGITAL DIGITAL SCREENING MAMMOGRAM 3D/2D WITH CAD: 12/20/2018CLINICAL: Asymptomatic. Digital breast tomosynthesis was performed in addition to routine CC and MLO views. Current mammographic images were evaluated by either a [employer] M-Vu or a [employer] ImageChecker CAD (computer aided detection system). Comparison [...] factors, in addition to dense breast tissue.Umang Valdez M.D. rb/:12/31/2018 15:50:34 Porter Sample Case: Larissa Sanon MM, [facility] Mammographyletter sent: BIRADS 1-2 Normal Mammogram BI-RADS: 1 Negative
--- OUTSIDE RECORDS SUMMARY | 2020-05-11 12:00 | XMS REPORT | Summary of Care ---
:1965 Author Organization [facility] Address [address] [place] [address] Care Team Providers Name Role Phone Dante Castro Darlene Primary Care Provider Reason for Visit Reason Comments Orders Encounter Details Date Type Department Care Team Description 04/22/2020 Telephone [facility] Nel Franco PA Orders Gastroenterology-[address] [place] [address] [place] [address] [phone] [place] [address] Allergies Active Allergy Reactions Severity Noted Date Comments Codeine Nausea and/or Vomiting 05/16/2018 documented as of this encounter (statuses as of 04/22/2020) Medications Medication Sig Dispensed Refills Start Date [...] as of this encounter (statuses as of 04/22/2020) Active Problems Problem Noted Date Chronic hepatitis C virus infection 08/22/2019 documented as of this encounter (statuses as of 04/22/2020) Social History Tobacco Use Types Packs/Day Years [...] filedocumented in this encounter Plan of Treatment Health Maintenance Due Date Last Done Comments HEPATITIS C (HCV) SCREEN 1965 PNEUMOCOCCAL 0-64 YEARS COMBINED SERIES (1 of 1 - 1971 PPSV23) DTaP,Tdap,and Td Vaccines (1 - Tdap) 1976 PAP SMEAR 1986 Breast Cancer Screening (MAMMOGRAM) 2005 COLONOSCOPY 2015 Zoster Recombinant Vaccine (SHINGRIX) (1 of 2) 2015 INFLUENZA VACCINE (Season Ended) 2020 Depression Screening 08/22/2020 08/22/2019 documented as of this encounter Results Not on filedocumented in this encounter
--- NOTE | 2020-05-11 12:23 | RAD REPORT ---
EXAM DESCRIPTION: RAD - Chest Single View - 05/11/2020 12:02 pm CLINICAL HISTORY: COUGH COMPARISON: Single-view January 2020 TECHNIQUE: AP portable chest image was obtained 05/11/2020 12:02 pm . FINDINGS: Lung volumes are relatively low. No peripheral mass or consolidation. Interstitial pattern is not clearly different from the prior examination. No failure or volume overload seen. Heart and vasculature are normal. No measurable pleural effusion and no pneumothorax. No acute bony abnormality seen. No acute aortic findings suspected. IMPRESSION: No acute cardiopulmonary process. No significant change from comparison.
--- NOTE | 2020-05-11 12:27 | ER ---
Nurse's Notes [facility] Name: Dionne Robledo Age: 54 yrs Sex: Female : 1965 Arrival Date: 05/11/2020 Time: 09:51 Bed 19 Private MD: Diagnosis: Fraser's palsy Presentation: 05/11 09:58 Chief complaint: Blurred vision, tingling of lips and tongue since yesterday morning, hb left sided facial droop and slurred speech upon waking today. VAN NEGATIVE. Hx of CVA with left sided weakness. Coronavirus screen: Proceed with normal triage. Ebola Screen: No symptoms or risks identified at this time. Initial Sepsis Screen: Does the patient meet any 2 criteria? No. Patient's initial sepsis screen is negative. Does the patient have a suspected source of infection? No. Patient's initial sepsis screen is negative. Risk Assessment: Do you want to hurt yourself or someone else? Patient reports no desire to harm self or others. Onset of symptoms was May 10, 2020. 09:58 Method Of Arrival: Ambulatory 09:58 Acuity: ANDRÉS 3 hb Historical: - Allergies: 10:00 Codeine; hb - PMHx: 10:00 CVA; hepatitis C resolved; hb - PSHx: 10:00 Cholecystectomy; Appendectomy; Left ankle; hb - Immunization history:: Adult Immunizations up to date. - Social history:: Smoking status: Patient reports the use of cigarette tobacco products, smokes one-half pack cigarettes per day. - Family history:: not pertinent. Screenin:04 Abuse screen: Denies threats or abuse. Nutritional screening: No deficits noted. Tuberculosis screening: No symptoms or risk factors identified. Fall Risk None identified. Assessment: 10:35 VAN Scoring: Arm Drift: Patients demonstrates NO arm weakness. Patient is VAN Negative. sv T-PA (Activase) Screening: Contraindications: Patient reports onset of signs and symptoms of stroke greater than 6 hours ago:. General: Appears in no apparent distress. comfortable, Behavior is calm, cooperative, appropriate for age. Pain: Complains of pain in forehead, right yarsanism and left yarsanism Pain currently is 2 out of 10 on a pain scale. Neuro: Level of Consciousness is awake, alert, obeys commands, Oriented to person, place, time, situation, Retail Loss Prevention Specialist are equal bilaterally Moves all extremities. Full function Speech is normal, Facial droop on left, Facial symmetry: tongue is midline. Cardiovascular: Patient's skin is warm and dry. Respiratory: Airway is patent Respiratory effort is even, unlabored, Respiratory pattern is regular, symmetrical. Derm: Skin is pink, warm \T\ dry. Musculoskeletal: Range of motion: intact in all extremities. 10:39 Reassessment: Dr Rod at the bedside. sv 11:30 Patient has been NPO before screening. The patient is alert, and able to follow commands. The patient does not exhibit slurred or garbled speech. The patient is not exhibiting difficulty speaking. The patient does not exhibit difficulty understanding words. The patient is able to swallow own secretions with no drooling or need for suction. Patient tolerated one teaspoon of water. No drooling, immediate coughing, gurgling, or clearing of the throat was noted. The patient tolerated 90mL of water. No drooling, immediate coughing, gurgling, or clearing of the throat was noted. The patient passed the bedside swallow screening. Oral medications may be given as ordered. Contact Physician for further diet orders. Provider notified of bedside swallow screening results: Edinson Rod MD. 12:53 Reassessment: Pt able to swallow pills with water with no trouble. Tolerated well. 13:30 Reassessment: Patient and/or family updated on plan of care and expected duration. Pain ah level reassessed. Patient is alert, oriented x 3, equal unlabored respirations, skin warm/dry/pink. Awaiting on lab results at this time. No needs voiced. Vital Signs: 09:58 BP 136 / 86; Pulse 62; Resp 16; Temp 97.8; Pulse Ox 100% on R/A; Weight 81.65 kg; hb Height 5 ft. 4 in. (162.56 cm); Pain 0/10; 10:30 BP 116 / 75; Pulse 58; Resp 22; Pulse Ox 95% ; ah 12:00 BP 118 / 83; Pulse 56; Resp 19; Pulse Ox 99% ; ah 12:49 BP 127 / 86; Pulse 60; Resp 18; Pulse Ox 100% ; ah 09:58 Body Mass Index 30.90 (81.65 kg, 162.56 cm) hb NIH Stroke Scale Scores: 10:35 NIHSS Score: 3 sv ED Course: 09:51 Patient arrived in ED. fj1 10:00 Triage completed. hb 10:00 Arm band placed on. hb 10:05 Edinson Rod MD is Attending Physician. sindi 10:18 Camille Fowler, RN is Primary Nurse. ah 10:37 Patient has correct armband on for positive identification. Placed in gown. Bed in low mh5 position. Call light in reach. Side rails up X2. Adult w/ patient. Warm blanket given. Pillow given. panel monitor on. Pulse ox on. NIBP on. 10:37 Initial lab(s) drawn, by va, sent to lab. Inserted saline lock: 20 gauge in right mh5 antecubital area, using aseptic technique. Blood collected. 10:58 Head Brain Wo Cont In Process Unspecified. EDMS 11:10 Brain Wo Cont In Process Unspecified. EDMS 11:34 Patient moved back from CT. sv 12:03 XRAY Chest (1 view) In Process Unspecified. EDMS 12:26 Alexey Perez MD is Referral Physician. sindi 13:30 No provider procedures requiring assistance completed. IV discontinued, intact, ah bleeding controlled, No redness/swelling at site. Pressure dressing applied. Administered Medications: 11:35 Drug: foLIC Acid 1 mg Route: IVPB; Site: right antecubital; 12:35 Follow up: Response: No adverse reaction; IV Status: Completed infusion 11:40 Drug: NS 0.9% 1000 ml Route: IV; Rate: 1 bolus; Site: left antecubital; 12:40 Follow up: Response: No adverse reaction; IV Status: Completed infusion 12:40 Drug: Aspirin Chewable Tablet 324 mg Route: PO; 14:17 Follow up: Response: No adverse reaction 12:40 Drug: valACYclovir 1000 mg Route: PO; 14:16 Follow up: Response: No adverse reaction 12:40 Drug: predniSONE 60 mg Route: PO; 14:16 Follow up: Response: No adverse reaction Outcome: 12:27 Discharge ordered by . [facility] 14:00 Discharged to home ambulatory. 14:00 Condition: good 14:00 Discharge instructions given to patient, Instructed on discharge instructions, follow up and referral plans. Demonstrated understanding of instructions, follow-up care, medications, Prescriptions given X 4. 14:17 Patient left the ED. NIH Stroke Scale - NIH Stroke Score Date: 05/11/2020 Time: 10:35 Total Score = 3 1a. Level of Consciousness (LOC) - 0(Alert) 1b. Level of Consciousness (LOC) (Year \T\ Age) - 0(Both) 1c. LOC Commands (Open \T\ Closes Eyes/Intelligence Manager) - 0(Both) 2. Best Gaze (Lateral Gaze Paresis) - 0(Normal) 3. Visual Field Loss - 1(Partial hemianopia) 4. Facial Palsy - 1(Minor Paralysis) 5a. Left Arm: Motor (10-second hold) - 0(No drift) 5b. Right Arm: Motor (10-second hold) - 0(No drift) 6a. Left Leg: Motor (5-second hold - always test supine) - 0(No drift) 6b. Right Leg: Motor (5-second hold - always test supine) - 0(No drift) 7. Limb Ataxia (finger/nose \T\ heel/blunt - test with eyes open) - 0(Absent) 8. Sensory Loss (pinprick arms/legs/face) - 1(Mild to moderate loss) 9. Best Language: Aphasia (description/naming/reading) - 0(No aphasia) 10. Dysarthria (speech clarity - read or repeat words) - 0(Normal) 11. Extinction and Inattention (visual/tactile/auditory/spatial/personal) - 0(No abnormality) Initials: sv Signatures: Dispatcher [employer] Rosa Lima RN RN sv Anderson, Corey, MD MD cha Baxter, Heather, Roxana Duncan RN [facility] Hugo Melendez [facility] Camille Fowler, JAHAIRA CAMPO
--- NOTE | 2020-05-11 12:27 | EDPHYS ---
Physician Documentation [facility] Name: Dionne Robledo Age: 54 yrs Sex: Female : 1965 Arrival Date: 05/11/2020 Time: 09:51 Bed 19 Private MD: ED Physician Edinson Rod HPI: 05/11 10:41 This 54 yrs old Female presents to ER via Ambulatory with complaints of S/S of sindi Possible Stroke. 10:41 The patient's problem is reported as a facial droop, on left. Onset: The sindi symptoms/episode began/occurred yesterday. Duration: The episode is continuous. The symptoms are alleviated by nothing. The symptoms are aggravated by nothing. Associated signs and symptoms: Pertinent positives: numbness, weakness, left face weak yesterday, forehead spared. Severity of symptoms: At their worst the symptoms were mild in the emergency department the symptoms are unchanged. Patient's baseline: Neuro: alert and fully oriented. Historical: - Allergies: 10:00 Codeine; hb - PMHx: 10:00 CVA; hepatitis C resolved; hb - PSHx: 10:00 Cholecystectomy; Appendectomy; Left ankle; hb - Immunization history:: Adult Immunizations up to date. - Social history:: Smoking status: Patient reports the use of cigarette tobacco products, smokes one-half pack cigarettes per day. - Family history:: not pertinent. ROS: 10:41 Constitutional: Negative for fever, chills, and weight loss, Eyes: Negative for injury, sindi pain, redness, and discharge, ENT: Negative for injury, pain, and discharge, Neck: Negative for injury, pain, and swelling, Cardiovascular: Negative for chest pain, palpitations, and edema, Respiratory: Negative for shortness of breath, cough, wheezing, and pleuritic chest pain, Abdomen/GI: Negative for abdominal pain, nausea, vomiting, diarrhea, and constipation, Back: Negative for injury and pain, : Negative for injury, bleeding, discharge, and swelling, MS/Extremity: Negative for injury and deformity, Skin: Negative for injury, rash, and discoloration, Psych: Negative for depression, anxiety, suicide ideation, homicidal ideation, and hallucinations, Allergy/Immunology: Negative for hives, rash, and allergies, Endocrine: Negative for neck swelling, polydipsia, polyuria, polyphagia, and marked weight changes, Hematologic/Lymphatic: Negative for swollen nodes, abnormal bleeding, and unusual bruising. 10:41 Neuro: Positive for numbness, weakness, of the left cheek, mouth and left jaw. Exam: 10:41 Constitutional: This is a well developed, well nourished patient who is awake, alert, sindi and in no acute distress. Eyes: Pupils equal round and reactive to light, extra-ocular motions intact. Lids and lashes normal. Conjunctiva and sclera are non-icteric and not injected. Cornea within normal limits. Periorbital areas with no swelling, redness, or edema. ENT: Nares patent. No nasal discharge, no septal abnormalities noted. Tympanic membranes are normal and external auditory canals are clear. Oropharynx with no redness, swelling, or masses, exudates, or evidence of obstruction, uvula midline. Mucous membranes moist. Neck: Trachea midline, no thyromegaly or masses palpated, and no cervical lymphadenopathy. Supple, full range of motion without nuchal rigidity, or vertebral point tenderness. No Meningismus. Chest/axilla: Normal chest wall appearance and motion. Nontender with no deformity. No lesions are appreciated. Cardiovascular: Regular rate and rhythm with a normal S1 and S2. No gallops, murmurs, or rubs. Normal PMI, no JVD. No pulse deficits. Respiratory: Lungs have equal breath sounds bilaterally, clear to auscultation and percussion. No rales, rhonchi or wheezes noted. No increased work of breathing, no retractions or nasal flaring. Abdomen/GI: Soft, non-tender, with normal bowel sounds. No distension or tympany. No guarding or rebound. No evidence of tenderness throughout. Back: No spinal tenderness. No costovertebral tenderness. Full range of motion. Skin: Warm, dry with normal turgor. Normal color with no rashes, no lesions, and no evidence of cellulitis. MS/ Extremity: Pulses equal, no cyanosis. Neurovascular intact. Full, normal range of motion. Psych: Awake, alert, with orientation to person, place and time. Behavior, mood, and affect are within normal limits. 10:41 Head/face: Noted is left lower face weak. 10:41 Neuro: Orientation: is normal, appropriate for stated age, no acute changes, Mentation: is normal, appropriate for stated age, no acute changes, Memory: is normal, appropriate for stated age, no acute changes, Cranial nerves: facial droop noted on left, with forehead spared. Cerebellar function: is grossly normal, is grossly normal based on the patient's age, no acute changes, Motor: is normal, is grossly normal based on the patient's age, no acute changes, moves all fours, strength is 5/5 in all extremities, Sensation: is normal, Gait: not applicable Babinski testing is normal, seizure activity, is not displayed by the patient. 10:51 ECG was reviewed by the Attending Physician. sindi 12:21 Radiologist reports: no blood, old changes sindi Vital Signs: 09:58 BP 136 / 86; Pulse 62; Resp 16; Temp 97.8; Pulse Ox 100% on R/A; Weight 81.65 kg; hb Height 5 ft. 4 in. (162.56 cm); Pain 0/10; 10:30 BP 116 / 75; Pulse 58; Resp 22; Pulse Ox 95% ; ah 12:00 BP 118 / 83; Pulse 56; Resp 19; Pulse Ox 99% ; ah 12:49 BP 127 / 86; Pulse 60; Resp 18; Pulse Ox 100% ; ah 09:58 Body Mass Index 30.90 (81.65 kg, 162.56 cm) hb NIH Stroke Scale Scores: 10:35 NIHSS Score: 3 sv MDM: 10:05 Patient medically screened. [facility] 10:48 Data reviewed: vital signs, nurses notes, lab test result(s), EKG, radiologic studies, sindi CT scan, plain films. 10:49 Differential diagnosis: CVA, TIA, Dementia. Data interpreted: ekg monitor tech: Pulse sindi oximetry: on room air is 100 %. Test interpretation: by ED physician or midlevel provider: ECG, plain radiologic studies. Counseling: I had a detailed discussion with the patient and/or guardian regarding: the historical points, exam findings, and any diagnostic results supporting the discharge/admit diagnosis, the presence of at least one elevated blood pressure reading (>120/80) during this emergency department visit, lab results, radiology results. 12:18 ED course: mri neg for acute cva. [facility] 12:22 Physician consultation: Alexey Quintana MD and will see patient in office, no need to sindi admit, mri neg, treat as fernando castro. 12:28 ED course: dr quintana will follow up , bells diagnosis, asprin daily, prednisone and sindi valtrex as well. 05/11 10:07 Order name: CBC with Diff; Complete Time: 13:48 [facility] 05/11 10:07 Order name: Sed Rate; Complete Time: 13:48 [facility] 05/11 10:42 Order name: Basic Metabolic Panel; Complete Time: 13:48 [facility] 05/11 10:42 Order name: Liver (Hepatic) Function; Complete Time: 13:48 [facility] 05/11 10:42 Order name: Troponin (Emerg Dept Use Only); Complete Time: 13:48 [facility] 05/11 10:42 Order name: NT PRO-BNP; Complete Time: 13:48 [facility] 05/11 10:42 Order name: C-Reactive Protein; Complete Time: 13:48 [facility] 05/11 10:42 Order name: Magnesium; Complete Time: 13:48 [facility] 05/11 10:07 Order name: XRAY Chest (1 view); Complete Time: 12:31 [facility] 05/11 10:07 Order name: EKG; Complete Time: 11:15 [facility] 05/11 10:07 Order name: Cardiac monitoring; Complete Time: 10:36 [facility] 05/11 10:49 Order name: Brain Wo Cont; Complete Time: 12:18 [facility] 05/11 10:49 Order name: Head Brain Wo Cont; Complete Time: 12:18 [facility] 05/11 12:50 Order name: Urine Dipstick--Ancillary (enter results); Complete Time: 13:48 05/11 12:50 Order name: Urine --Ancillary (enter results); Complete Time: 13:48 05/11 10:07 Order name: EKG - Nurse/Tech; Complete Time: 10:36 [facility] 05/11 10:07 Order name: IV Saline Lock; Complete Time: 10:36 [facility] 05/11 10:07 Order name: Labs collected and sent; Complete Time: 10:36 [facility] 05/11 10:07 Order name: O2 Per Protocol; Complete Time: 12:02 [facility] 05/11 10:07 Order name: O2 Sat Monitoring; Complete Time: 12:02 [facility] 05/11 10:07 Order name: Urine Dipstick-Ancillary (obtain specimen); Complete Time: 12:49 [facility] 05/11 10:51 Order name: Labs - recollect needed: chemistry tube recollect; Complete Time: 12:02 eb EC:51 Rate is 62 beats/min. Rhythm is regular. QRS [place] is Normal. [place] interval is normal. QRS sindi interval is normal. QT interval is normal. No Q waves. T waves are Normal. No ST changes noted. Clinical impression: LVH and No evidence of ischemia. Interpreted by me. Reviewed by me. Administered Medications: 11:35 Drug: foLIC Acid 1 mg Route: IVPB; Site: right antecubital; 12:35 Follow up: Response: No adverse reaction; IV Status: Completed infusion 11:40 Drug: NS 0.9% 1000 ml Route: IV; Rate: 1 bolus; Site: left antecubital; 12:40 Follow up: Response: No adverse reaction; IV Status: Completed infusion 12:40 Drug: Aspirin Chewable Tablet 324 mg Route: PO; 14:17 Follow up: Response: No adverse reaction 12:40 Drug: valACYclovir 1000 mg Route: PO; 14:16 Follow up: Response: No adverse reaction 12:40 Drug: predniSONE 60 mg Route: PO; 14:16 Follow up: Response: No adverse reaction Disposition: 05/11/20 12:27 Discharged to Home. Impression: Fraser's palsy. - Condition is Stable. - Discharge Instructions: Fraser Palsy, Adult, Aspirin and Your Heart. - Prescriptions for Artificial Tears - instill 1 application by OPHTHALMIC route 6 times per day; 10 milliliter. Valtrex 1 g Oral Tablet - take 1 tablet by ORAL route every 8 hours for 7 days; 21 tablet. Prednisone 20 mg Oral Tablet - take 2 tablet by ORAL route once daily for 5 days; 10 tablet. Vitamin 27- 0.8 mg Oral Tablet - take 1 tablet by ORAL route once daily; 30 tablet. - Medication Reconciliation Form, Thank You Letter, Antibiotic Education, Prescription Opioid Use, Work release form, Family Work Release form. - Follow up: Private Physician; When: 2 - 3 days; Reason: Recheck today's complaints, Continuance of care, Re-evaluation by your physician. Follow up: Alexey Quintana MD; When: 2 - 3 days; Reason: Recheck today's complaints, Continuance of care, Re-evaluation by your physician. NIH Stroke Scale - NIH Stroke Score Date: 05/11/2020 Time: 10:35 Total Score = 3 1a. Level of Consciousness (LOC) - 0(Alert) 1b. Level of Consciousness (LOC) (Year \T\ Age) - 0(Both) 1c. LOC Commands (Open \T\ Closes Eyes/Saw Straightener) - 0(Both) 2. Best Gaze (Lateral Gaze Paresis) - 0(Normal) 3. Visual Field Loss - 1(Partial hemianopia) 4. Facial Palsy - 1(Minor Paralysis) 5a. Left Arm: Motor (10-second hold) - 0(No drift) 5b. Right Arm: Motor (10-second hold) - 0(No drift) 6a. Left Leg: Motor (5-second hold - always test supine) - 0(No drift) 6b. Right Leg: Motor (5-second hold - always test supine) - 0(No drift) 7. Limb Ataxia (finger/nose \T\ heel/blunt - test with eyes open) - 0(Absent) 8. Sensory Loss (pinprick arms/legs/face) - 1(Mild to moderate loss) 9. Best Language: Aphasia (description/naming/reading) - 0(No aphasia) 10. Dysarthria (speech clarity - read or repeat words) - 0(Normal) 11. Extinction and Inattention (visual/tactile/auditory/spatial/personal) - 0(No abnormality) Initials: sv Signatures: Dispatcher [employer] EDMS Edinson Rod MD MD cha Baxter, Heather, JAHAIRA CAMPO Alba Umaña Amy, RN RN Corrections: (The following items were deleted from the chart) 11:24 11:15 CT-STROKE BRAIN W/O CONTRAST+CT.RAD.BRZ ordered. EDMS EDMS 11:42 11:15 CBC+H.LAB.BRZ ordered. EDMS EDMS 11:42 11:15 [place] SEDRATE+H.LAB.BRZ ordered. EDMS EDMS 11:43 11:15 BASIC METABOLIC PANEL+C.LAB.BRZ ordered. EDMS EDMS 11:43 11:15 HEPATIC FUNCTION+C.LAB.BRZ ordered. EDMS EDMS 11:43 11:15 MAGNESIUM+C.LAB.BRZ ordered. EDMS EDMS 11:43 11:15 PROBNP+C.LAB.BRZ ordered. [facility] 11:43 11:15 TROPONIN (EMERG DEPT USE ONLY)+C.LAB.BRZ ordered. [facility] 11:43 11:15 C-REACTIVE PROTEIN+C.LAB.BRZ ordered. [facility] 12:08 11:17 MR STROKE PROTOCOL+MRI.RAD.BRZ ordered. [facility] 13:10 10:42 CBC with Automated Diff ordered. [facility] 13:10 10:42 Sedimentation Rate, [place] ordered. [facility] 13:10 12:18 CBC with Automated Diff reviewed. [facility] 13:10 12:18 Sedimentation Rate, [place] reviewed. [facility] 14:17 12:27 05/11/2020 12:27 Discharged to Home. Impression: Fraser's palsy. Condition ah is Stable. Forms are Medication Reconciliation Form, Thank You Letter, Antibiotic Education, Prescription Opioid Use. Follow up: Private Physician; When: 2 - 3 days; Reason: Recheck today's complaints, Continuance of care, Re-evaluation by your physician. Follow up: Alexey Quintana; When: 2 - 3 days; Reason: Recheck today's complaints, Continuance of care, Re-evaluation by your physician. sindi
[2020-05-11] MEDS ORDERED: ASPIRIN 81 MG CHEWABLE TABLET ONE (12:49)
[2020-05-11] MEDS ORDERED: predniSONE 20 MG TAB ONE (12:50)
[2020-05-11] MEDS ORDERED: VALACYCLOVIR 500 MG TAB ONE (12:50)
[2020-05-11 13:16] LABS: Basophils % 0.6 % (0-1.3); Hematocrit 41.5 % (36.0-45.0); Lymphocytes % 18.2 % (15.3-44.8); MPV 8.6 fL (7.6-11.3)
[2020-05-11 13:28] LABS: ALT/SGPT 22 U/L (12-78); AST/SGOT 15 U/L (15-37); Albumin 3.8 g/dL (3.4-5.0); Alkaline Phosphatase 147 U/L (45-117); BUN Blood Urea Nitrogen 9 mg/dL (7-18); Bicarbonate 29 mmol/L (21-32); Bilirubin Direct 0.1 mg/dL (0-0.2); Bilirubin Total 0.5 mg/dL (0.2-1.0); Glucose Level 99 mg/dL (74-106); Magnesium 2.2 mg/dL (1.8-2.4); NT PRO-BNP 41 pg/mL (<125); Potassium 4.2 mmol/L (3.5-5.1); Protein, Total 7.6 g/dL (6.4-8.2); Sodium Level 140 mmol/L (136-145); Troponin (Emerg Dept Use Only) < 0.02 ng/mL (0.0-0.045)
[2020-05-11 13:29] LABS: C-Reactive Protein < 2.90 mg/L (<3.00)
[2020-05-11 13:35] LABS: Urine Blood TRACE (NEG); Urine Glucose NEGATIVE (NEG); Urine Protein NEGATIVE (NEG)
[2020-05-11 14:28] VITALS: TEMP 97.8
[2020-05-11 14:32] VITALS: BP 127/86; O2SAT 100
--- NOTE | 2020-05-12 06:27 | EKG ---
Test Date: 2020-05-11 Test Time: 10:15:19 Lathe Set Up Operator: VEDA MEASUREMENT RESULTS: Intervals: Rate: 58 PA: 170 QRSD: 92 QT: 378 QTc: 371 [place]: P: 53 PA: 170 QRS: -18 T: 16 INTERPRETIVE STATEMENTS: Sinus bradycardia Minimal voltage criteria for LVH, may be normal variant Septal infarct, age undetermined Abnormal ECG Compared to ECG 01/25/2020 09:04:27 Left ventricular hypertrophy now present Myocardial infarct finding now present Electronically Signed On 05-12-20 06:24:34 CDT by Silvio Woo
== END 2020-05-11 14:17 | disposition home or self-care (01) ==
LOC: ER 09:50
DX: G51.0 Bell's palsy (principal); F17.210 Nicotine dependence, cigarettes, uncomplicated; Z88.5 Allergy status to narcotic agent
CPT/HCPCS: 96365; 93005; 85025; 80048; 36415; 83735; 81025; 80076; 85652; 81003; 84484; 83880; 86140; 70450; 71045; 70551; 99285; J7512; J7030

== ENCOUNTER 2022-04-17 01:03 | Emergency (ER) | payer OTHER ==
--- OUTSIDE RECORDS SUMMARY | 2022-04-17 01:06 | XMS REPORT | Continuity of Care Document ---
:1965 Author Organization [facility] t Address [address] [place] [address] Care Team Providers Name Role Phone Doctor Unassigned, Name Attending Clinician Unavailable O'Bryson PA Attending Clinician O'BRYSON Attending Clinician Unavailable Payers Payer Name Policy Type Policy Number Effective Date Expiration Date S ource Problems Condition Condition Condition Status Onset Resolution Last Treating Co mments Source Name Details Category Date Date Treatment Clinician Date Chronic Chronic Disease Active Univers hepatitis hepatitis 9 ity of C virus C virus 00:00: [place] infection infection 00 [facility] No known No known Disease Unive rs active active ity of problems problems [facility] Pain in Pain in Diagnosis Active Commo n joint of joint of [place] right knee right knee [facility] Primary Primary Diagnosis Active Commo n osteoarthr osteoarthr Sp xochitl itis of itis of - [facility] right knee right knee [facility] Patellar Patellar Diagnosis Active Com mon tendinitis tendinitis Sp xochitl of right of right - [facility] knee knee [facility] Allergies, Adverse Reactions, Alerts Allergy Allergy Status Severity Reaction(s) Onset Inactive Treating Comm ents Source Name Type Date Date Clinician Codeine Propensi Active Nausea Univers ty to and/or 6 ity of adverse Vomiting 00:00: [place] reaction 00 [facility] [place] CODEINE DRUG Active N/V Univers INGREDI 6- ity of 00:00: [address] codeine Adverse Active Info Not Common Reaction Available [facility] Social History Social Habit Start Date Stop Date Quantity Comments Source Tobacco use and 2019-08-22 2019-08-22 Current user Univers ity of exposure 00:00:00 00:00:00 [facility] Alcohol intake 2019-08-22 2019-08-22 Current drinker Unive rsity of 00:00:00 00:00:00 of alcohol [facility] (finding) [place] Sex [birth year] Universit y of 00:00:00 00:00:00 [facility] Smoking Status Start Date Stop Date Source Current some day smoker 2019-08-22 00:00:00 [facility] ersity of [facility] Medications Ordered Filled Start Stop Current Ordering Indication Dosage Frequency Signature Comments Components Source Medication Medication Date Date Medication? Clinician (SIG) Name Name Meloxicam Meloxicam 2020- No Rob[place] 1 tablet Common 08-05 [place] 00:00: 00:00 - [facility] 00 :00 [facility] aspirin 81 2019-0 Yes 81mg Take 81 mg U nivers mg chewable 5-22 by mouth ity of tablet 19:38: daily. [address] aspirin 81 2020-0 Yes 81mg Take 81 mg U nivers mg chewable 5-22 by mouth ity of tablet 19:38: daily. [address] aspirin 81 2020-0 Yes 81mg Take 81 mg U nivers mg chewable 5-22 by mouth ity of tablet 19:38: daily. [address] aspirin 81 2020-0 Yes 81mg Take 81 mg U nivers mg chewable 5-22 by mouth ity of tablet 19:38: daily. [address] aspirin 81 2020-0 Yes 81mg Take 81 mg U nivers mg chewable 5-22 by mouth ity of tablet 19:38: daily. [address] ibuprofen 2018- Yes [id number] 600mg Take 1 U nivers 600 mg 6-24 tablet by ity of tablet 00:00: mouth [place] 00 every 6 Medical (six) Branch hours as needed for Pain (scale 4-6). phenazopyri Yes [id number] 200mg Take 1 Univers dine 200 mg 6-24 tablet by ity of tablet 00:00: mouth 3 [place] 00 (three) Medical times Branch daily as needed for Pain. ibuprofen 2019-0 Yes [id number] 600mg Take 1 U nivers 600 mg 6-24 tablet by ity of tablet 00:00: mouth [place] 00 every 6 Medical (six) Branch hours as needed for Pain (scale 4-6). phenazopyri 2019-0 Yes [id number] 200mg Take 1 Univers dine 200 mg 6-24 tablet by ity of tablet 00:00: mouth 3 [place] 00 (three) Medical times Branch daily as needed for Pain. ibuprofen 2018-0 Yes [id number] 600mg Take 1 U nivers 600 mg 6-24 tablet by ity of tablet 00:00: mouth [place] 00 every 6 Medical (six) Branch hours as needed for Pain (scale 4-6). phenazopyri 2019-0 Yes [id number] 200mg Take 1 Univers dine 200 mg 6-24 tablet by ity of tablet 00:00: mouth 3 [place] 00 (three) Medical times Branch daily as needed for Pain. ibuprofen 2018-0 Yes [id number] 600mg Take 1 U nivers 600 mg 6-24 tablet by ity of tablet 00:00: mouth [place] 00 every 6 Medical (six) Branch hours as needed for Pain (scale 4-6). phenazopyri 2019-0 Yes [id number] 200mg Take 1 Univers dine 200 mg 6-24 tablet by ity of tablet 00:00: mouth 3 [place] 00 (three) Medical times Branch daily as needed for Pain. ibuprofen 2018-0 Yes [id number] 600mg Take 1 U nivers 600 mg 6-24 tablet by ity of tablet 00:00: mouth [place] 00 every 6 Medical (six) Branch hours as needed for Pain (scale 4-6). phenazopyri 2019-0 Yes [id number] 200mg Take 1 Univers dine 200 mg 6-24 tablet by ity of tablet 00:00: mouth 3 [place] 00 (three) Medical times Branch daily as needed for Pain. ibuprofen 2019-0 Yes [id number] 600mg Take 1 U nivers 600 mg 6-24 tablet by ity of tablet 00:00: mouth [place] 00 every 6 Medical (six) Branch hours as needed for Pain (scale 4-6). phenazopyri 2019-0 Yes [id number] 200mg Take 1 Univers dine 200 mg 6-24 tablet by ity of tablet 00:00: mouth 3 [place] 00 (three) Medical times Branch daily as needed for Pain. ibuprofen 0 Yes [id number] 600mg Take 1 U nivers 600 mg 6-24 tablet by ity of tablet 00:00: mouth [place] 00 every 6 Medical (six) Branch hours as needed for Pain (scale 4-6). phenazopyri 2019-0 Yes [id number] 200mg Take 1 Univers dine 200 mg 6-24 tablet by ity of tablet 00:00: mouth 3 [place] 00 (three) Medical times Branch daily as needed for Pain. ibuprofen 0 Yes [id number] 600mg Take 1 U nivers 600 mg 6-24 tablet by ity of tablet 00:00: mouth [place] 00 every 6 Medical (six) Branch hours as needed for Pain (scale 4-6). phenazopyri 0 Yes [id number] 200mg Take 1 Univers dine 200 mg 6-24 tablet by ity of tablet 00:00: mouth 3 [place] 00 (three) Medical times Branch daily as needed for Pain. ibuprofen Yes [id number] 600mg Take 1 U nivers 600 mg 6-24 tablet by ity of tablet 00:00: mouth [place] 00 every 6 Medical (six) Branch hours as needed for Pain (scale 4-6). phenazopyri 0 Yes [id number] 200mg Take 1 Univers dine 200 mg 6-24 tablet by ity of tablet 00:00: mouth 3 [place] 00 (three) Medical times Branch daily as needed for Pain. ibuprofen 0 Yes [id number] 600mg Take 1 U nivers 600 mg 6-24 tablet by ity of tablet 00:00: mouth [place] 00 every 6 Medical (six) Branch hours as needed for Pain (scale 4-6). phenazopyri 0 Yes [id number] 200mg Take 1 Univers dine 200 mg 6-24 tablet by ity of tablet 00:00: mouth 3 [place] 00 (three) Medical times Branch daily as needed for Pain. ibuprofen 2018-0 Yes [id number] 600mg Take 1 U nivers 600 mg 6-24 tablet by ity of tablet 00:00: mouth [place] 00 every 6 Medical (six) Branch hours as needed for Pain (scale 4-6). phenazopyri 2018-0 Yes [id number] 200mg Take 1 Univers dine 200 mg 6-24 tablet by ity of tablet 00:00: mouth 3 [place] 00 (three) Medical times Branch daily as needed for Pain. ibuprofen 2019-0 Yes [id number] 600mg Take 1 U nivers 600 mg 6-24 tablet by ity of tablet 00:00: mouth [place] 00 every 6 Medical (six) Branch hours as needed for Pain (scale 4-6). phenazopyri 2018-0 Yes [id number] 200mg Take 1 Univers dine 200 mg 6-24 tablet by ity of tablet 00:00: mouth 3 [place] 00 (three) Medical times Branch daily as needed for Pain. ibuprofen 2018-0 Yes [id number] 600mg Take 1 U nivers 600 mg 6-24 tablet by ity of tablet 00:00: mouth [place] 00 every 6 Medical (six) Branch hours as needed for Pain (scale 4-6). phenazopyri 2018-0 Yes [id number] 200mg Take 1 Univers dine 200 mg 6-24 tablet by ity of tablet 00:00: mouth 3 [place] 00 (three) Medical times Branch daily as needed for Pain. ibuprofen 0 Yes [id number] 600mg Take 1 U nivers 600 mg 6-24 tablet by ity of tablet 00:00: mouth [place] 00 every 6 Medical (six) Branch hours as needed for Pain (scale 4-6). phenazopyri 2018-0 Yes [id number] 200mg Take 1 Univers dine 200 mg 6-24 tablet by ity of tablet 00:00: mouth 3 [place] 00 (three) Medical times Branch daily as needed for Pain. ibuprofen 0 Yes [id number] 600mg Take 1 U nivers 600 mg 6-24 tablet by ity of tablet 00:00: mouth [place] 00 every 6 Medical (six) Branch hours as needed for Pain (scale 4-6). phenazopyri 2018-0 Yes [id number] 200mg Take 1 Univers dine 200 mg 6-24 tablet by ity of tablet 00:00: mouth 3 [place] 00 (three) Medical times Branch daily as needed for Pain. ibuprofen 2018-0 Yes [id number] 600mg Take 1 U nivers 600 mg 6-24 tablet by ity of tablet 00:00: mouth [place] 00 every 6 Medical (six) Branch hours as needed for Pain (scale 4-6). phenazopyri 2019-0 Yes [id number] 200mg Take 1 Univers dine 200 mg 6-24 tablet by ity of tablet 00:00: mouth 3 [place] 00 (three) Medical times Branch daily as needed for Pain. ibuprofen 2019-0 Yes [id number] 600mg Take 1 U nivers 600 mg 6-24 tablet by ity of tablet 00:00: mouth [place] 00 every 6 Medical (six) Branch hours as needed for Pain (scale 4-6). phenazopyri 2019-0 Yes [id number] 200mg Take 1 Univers dine 200 mg 6-24 tablet by ity of tablet 00:00: mouth 3 [place] 00 (three) Medical times Branch daily as needed for Pain. ibuprofen 2018-0 Yes [id number] 600mg Take 1 U nivers 600 mg 6-24 tablet by ity of tablet 00:00: mouth [place] 00 every 6 Medical (six) Branch hours as needed for Pain (scale 4-6). phenazopyri 2018-0 Yes [id number] 200mg Take 1 Univers dine 200 mg 6-24 tablet by ity of tablet 00:00: mouth 3 (three) Medical times Branch daily as needed for Pain. ibuprofen 0 Yes [id number] 600mg Take 1 U nivers 600 mg 6-24 tablet by ity of tablet 00:00: mouth [place] 00 every 6 Medical (six) Branch hours as needed for Pain (scale 4-6). phenazopyri 2018-0 Yes [id number] 200mg Take 1 Univers dine 200 mg 6-24 tablet by ity of tablet 00:00: mouth 3 (three) Medical times Branch daily as needed for Pain. ibuprofen 2018-0 Yes [id number] 600mg Take 1 U nivers 600 mg 6-24 tablet by ity of tablet 00:00: mouth [place] 00 every 6 Medical (six) Branch hours as needed for Pain (scale 4-6). phenazopyri 2018-0 Yes [id number] 200mg Take 1 Univers dine 200 mg 6-24 tablet by ity of tablet 00:00: mouth 3 00 (three) Medical times Branch daily as needed for Pain. ibuprofen 2019-0 Yes [id number] 600mg Take 1 U nivers 600 mg 6-24 tablet by ity of tablet 00:00: mouth [place] 00 every 6 Medical (six) Branch hours as needed for Pain (scale 4-6). phenazopyri 2019-0 Yes [id number] 200mg Take 1 Univers dine 200 mg 6-24 tablet by ity of tablet 00:00: mouth 3 [place] 00 (three) Medical times Branch daily as needed for Pain. phenazopyri 2019-0 Yes [id number] 200mg Take 1 Univers dine 200 mg 6-24 tablet by ity of tablet 00:00: mouth 3 [place] 00 (three) Medical times Branch daily as needed for Pain. ibuprofen 2019-0 Yes [id number] 600mg Take 1 U nivers 600 mg 6-24 tablet by ity of tablet 00:00: mouth [place] 00 every 6 Medical (six) Branch hours as needed for Pain (scale 4-6). phenazopyri 2019-0 Yes [id number] 200mg Take 1 Univers dine 200 mg 6-24 tablet by ity of tablet 00:00: mouth 3 [place] 00 (three) Medical times Branch daily as needed for Pain. ibuprofen 2019-0 Yes [id number] 600mg Take 1 U nivers 600 mg 6-24 tablet by ity of tablet 00:00: mouth [place] 00 every 6 Medical (six) Branch hours as needed for Pain (scale 4-6). aspirin 81 2019-0 Yes 81mg Take 81 mg U nivers mg chewable 4-05 by mouth ity of tablet 21:37: daily. [address] aspirin 81 2019-0 Yes 81mg Take 81 mg U nivers mg chewable 4-05 by mouth ity of tablet 21:37: daily. [address] aspirin 81 2019-0 Yes 81mg Take 81 mg U nivers mg chewable 4-05 by mouth ity of tablet 21:37: daily. [address] aspirin 81 2019-0 Yes 81mg Take 81 mg U nivers mg chewable 4-05 by mouth ity of tablet 21:37: daily. [address] aspirin 81 2019-0 Yes 81mg Take 81 mg U nivers mg chewable 4-05 by mouth ity of tablet 21:37: daily. [address] aspirin 81 2019-0 Yes 81mg Take 81 mg U nivers mg chewable 4-05 by mouth ity of tablet 21:37: daily. [address] aspirin 81 2019-0 Yes 81mg Take 81 mg U nivers mg chewable 4-05 by mouth ity of tablet 21:37: daily. [address] aspirin 81 2019-0 Yes 81mg Take 81 mg U nivers mg chewable 4-05 by mouth ity of tablet 21:37: daily. [address] Branch aspirin 81 2019-0 Yes 81mg Take 81 mg U nivers mg chewable 4-05 by mouth ity of tablet 21:37: daily. [address] Branch aspirin 81 2019-0 Yes 81mg Take 81 mg U nivers mg chewable 4-05 by mouth ity of tablet 21:37: daily. [address] Branch aspirin 81 2019-0 Yes 81mg Take 81 mg U nivers mg chewable 4-05 by mouth ity of tablet 21:37: daily. [address] Branch aspirin 81 2019-0 Yes 81mg Take 81 mg U nivers mg chewable 4-05 by mouth ity of tablet 21:37: daily. [address] Branch aspirin 81 2019-0 Yes 81mg Take 81 mg U nivers mg chewable 4-05 by mouth ity of tablet 21:37: daily. [address] Branch aspirin 81 2019-0 Yes 81mg Take 81 mg U nivers mg chewable 4-05 by mouth ity of tablet 21:37: daily. [address] Branch aspirin 81 2019-0 Yes 81mg Take 81 mg U nivers mg chewable 4-05 by mouth ity of tablet 21:37: daily. [address] Branch aspirin 81 2019-0 Yes 81mg Take 81 mg U nivers mg chewable 4-05 by mouth ity of tablet 21:37: daily. [address] Branch aspirin 81 2019-0 Yes 81mg Take 81 mg U nivers mg chewable 4-05 by mouth ity of tablet 21:37: daily. [address] aspirin 81 2019-0 Yes 81mg Take 81 mg U nivers mg chewable 4-05 by mouth ity of tablet 21:37: daily. [address] Branch dicyclomine 2018-0 Yes 20mg Take 1 Univ ers (BENTYL) 20 6-21 tablet by ity of mg tablet 00:00: mouth 4 (four) Medical times [place] daily as needed for Abdominal pain for up to 30 doses. dicyclomine 2018-0 Yes 20mg Take 1 Univ ers (BENTYL) 20 6-21 tablet by ity of mg tablet 00:00: mouth 4 00 (four) Medical times [place] daily as needed for Abdominal pain for up to 30 doses. dicyclomine 2018-0 Yes 20mg Take 1 Univ ers (BENTYL) 20 6-21 tablet by ity of mg tablet 00:00: mouth ([facility]) Medical times Branch daily as needed for Abdominal pain for up to 30 doses. dicyclomine 2018-0 Yes 20mg Take 1 Univ ers (BENTYL) 20 6-21 tablet by ity of mg tablet 00:00: mouth ([facility]) Medical times Branch daily as needed for Abdominal pain for up to 30 doses. dicyclomine 2018-0 Yes 20mg Take 1 Univ ers (BENTYL) 20 6-21 tablet by ity of mg tablet 00:00: mouth ([facility]) Medical times Branch daily as needed for Abdominal pain for up to 30 doses. dicyclomine 2018-0 Yes 20mg Take 1 Univ ers (BENTYL) 20 6-21 tablet by ity of mg tablet 00:00: mouth ([facility]) Medical times Branch daily as needed for Abdominal pain for up to 30 doses. dicyclomine 2018-0 Yes 20mg Take 1 Univ ers (BENTYL) 20 6-21 tablet by ity of mg tablet 00:00: mouth ([facility]) Medical times Branch daily as needed for Abdominal pain for up to 30 doses. dicyclomine 2018-0 Yes 20mg Take 1 Univ ers (BENTYL) 20 6-21 tablet by ity of mg tablet 00:00: mouth ([facility]) Medical times Branch daily as needed for Abdominal pain for up to 30 doses. dicyclomine 2018-0 Yes 20mg Take 1 Univ ers (BENTYL) 20 6-21 tablet by ity of mg tablet 00:00: mouth ([facility]) Medical times Branch daily as needed for Abdominal pain for up to 30 doses. dicyclomine 2018-0 Yes 20mg Take 1 Univ ers (BENTYL) 20 6-21 tablet by ity of mg tablet 00:00: mouth ([facility]) Medical times Branch daily as needed for Abdominal pain for up to 30 doses. dicyclomine 2018-0 Yes 20mg Take 1 Univ ers (BENTYL) 20 6-21 tablet by ity of mg tablet 00:00: mouth ([facility]) Medical times Branch daily as needed for Abdominal pain for up to 30 doses. dicyclomine 2018-0 Yes 20mg Take 1 Univ ers (BENTYL) 20 6-21 tablet by ity of mg tablet 00:00: mouth ([facility]) Medical times Branch daily as needed for Abdominal pain for up to 30 doses. dicyclomine 2018-0 Yes 20mg Take 1 Univ ers (BENTYL) 20 6-21 tablet by ity of mg tablet 00:00: mouth ([facility]) Medical times Branch daily as needed for Abdominal pain for up to 30 doses. dicyclomine 2018-0 Yes 20mg Take 1 Univ ers (BENTYL) 20 6-21 tablet by ity of mg tablet 00:00: mouth ([facility]) Medical times Branch daily as needed for Abdominal pain for up to 30 doses. dicyclomine 2018-0 Yes 20mg Take 1 Univ ers (BENTYL) 20 6-21 tablet by ity of mg tablet 00:00: mouth ([facility]) Medical times Branch daily as needed for Abdominal pain for up to 30 doses. dicyclomine 2018-0 Yes 20mg Take 1 Univ ers (BENTYL) 20 6-21 tablet by ity of mg tablet 00:00: mouth ([facility]) Medical times Branch daily as needed for Abdominal pain for up to 30 doses. dicyclomine 2018-0 Yes 20mg Take 1 Univ ers (BENTYL) 20 6-21 tablet by ity of mg tablet 00:00: mouth ([facility]) Medical times Branch daily as needed for Abdominal pain for up to 30 doses. dicyclomine 2018-0 Yes 20mg Take 1 Univ ers (BENTYL) 20 6-21 tablet by ity of mg tablet 00:00: mouth ([facility]) Medical times Branch daily as needed for Abdominal pain for up to 30 doses. dicyclomine 2018-0 Yes 20mg Take 1 Univ ers (BENTYL) 20 6-21 tablet by ity of mg tablet 00:00: mouth ([facility]) Medical times Branch daily as needed for Abdominal pain for up to 30 doses. dicyclomine 2018-0 Yes 20mg Take 1 Univ ers (BENTYL) 20 6-21 tablet by ity of mg tablet 00:00: mouth ([facility]) Medical times Branch daily as needed for Abdominal pain for up to 30 doses. dicyclomine 2018-0 Yes 20mg Take 1 Univ ers (BENTYL) 20 6-21 tablet by ity of mg tablet 00:00: mouth (four) Medical times Branch daily as needed for Abdominal pain for up to 30 doses. dicyclomine 2018-0 Yes 20mg Take 1 Univ ers (BENTYL) 20 6-21 tablet by ity of mg tablet 00:00: mouth 4 (four) Medical times Branch daily as needed for Abdominal pain for up to 30 doses. dicyclomine 2018-0 Yes 20mg Take 1 Univ ers (BENTYL) 20 6-21 tablet by ity of mg tablet 00:00: mouth 4 (four) Medical times Branch daily as needed for Abdominal pain for up to 30 doses. Diclofenac Diclofenac Yes Robert not Common Sodium Sodium [place] defined [facility] Artificial Artificial Yes Robert not Common Tears Tears [place] defined [facility] Yes [facility] MethylPREDN MethylPREDN Yes Robert not Common ISolone ISolone [place] defined [facility] Valacyclovi Valacyclovi Yes Robert not Common r HCl r HCl [place] defined [facility] Aspirin Low Aspirin Low Yes Robert not Common Dose Dose [place] defined [facility] PredniSONE PredniSONE Yes Robert not Common [place] defined [facility] Amoxicillin Amoxicillin Yes Robert not Common -Pot -Pot [place] defined [facility] Clavulanate Clavulanate [facility] Procedures Procedure Date / Time Performing Clinician Source Performed INSURANCE CORRESPONDENCE 2021-02-22 05:01:00 Doctor Alston, [facility] [place] [facility] AUTHORIZATION FOR RELEASE 2021-01-25 06:01:00 Doctor Alecia, [facility] [place] [facility] EXTERNAL PROVIDER RECORDS 2020-02-16 05:01:00 Doctor Venkataigned [facility] [place] [facility] EXTERNAL PROVIDER RECORDS 2020-01-29 06:01:00 Doctor Alecia, [facility] [place] [facility] EXTERNAL PROVIDER RECORDS 2020-01-19 06:01:00 Doctor Friedassigned, [facility] [place] [facility] EXTERNAL PROVIDER RECORDS 2019-08-06 05:01:00 Doctor Alecia, [facility] [place] [facility] Encounters Start End Encounter Admission Attending Care Care Encounter Source Date/Time Date/Time Type Type Clinicians Facility Department ID 2021-12-21 Outpatient [facility] [id number] Common 11:45:05 [id number] [facility] 2021-12-21 Outpatient [facility] [id number] Common 11:44:56 [id number] [facility] 2021-02-22 2021-02-22 Orders Doctor RAHAT 1.2.840.114 [id number] Univers 00:00:00 00:00:00 Only Unassigned, KIRA 350.1.13.10 ity of [place] [facility] 4.2.7.2.686 [place] [id number] [facility] 009 Branch 2021-01-25 2021-01-25 Orders Doctor RAHAT 1.2.840.114 [id number] Univers 00:00:00 00:00:00 Only Unassigned, KIRA 350.1.13.10 ity of [place] [facility] 4.2.7.2.686 [place] [id number] [facility] 009 Branch 2020 2020 [id number] Common 14:00:00 14:00:00 [facility] 2020-05-24 2020-05-24 Telephone Joan, NEELIMA 1.2.840.114 [id number] 00:00:00 00:00:00 Dolores Y HEALTH [id number] CLINICS 4.2.7.2.686 [id number] 2020-05-24 2020-05-24 Telephone Joan, YARON 1.2.840.114 [id number] Univers 00:00:00 00:00:00 Dolores Y HEALTH 350.1.13.10 i ty of CLINICS 4[place]2.[place] [id number] [place] [id number] Branch 2020-04-22 2020-04-22 [facility] 1.2.840.114 [id number] 00:00:00 00:00:00 [place] Y HEALTH 350.1.13.10 CLINICS 4.2.7.2.686 [id number] [facility] 2020-04-22 2020-04-22 Telephone Joan, UNIVERSIT 1.2.840.114 [id number] Univers 00:00:00 00:00:00 [place] Y HEALTH 350.1.13.10 i ty of [place] [id number] [address] 2020-04-16 2020-04-16 Outpatient R CHIARAOE, [facility] [id number] Univers 15:00:00 15:00:00 DOLORES [id number] ity [facility] 2020-04-16 2020-04-16 Outpatient R O'BRYSON, [facility] [id number] Univers 15:00:00 15:00:00 DOLORES ity [facility] 2020-04-16 2020-04-16 Telemedici Joan, UNIVERSIT 1.2.840.11 [id number] 07:41:39 08:11:39 ne Visit [facility] HEALTH 350.1.13.10 CLINICS 4.2.7.2.686 [id number] [facility] 2020-04-16 2020-04-16 Telemedici Joan, UNIVERSIT 1.2.840.11 [id number] [facility] [place] [facility] 07:41:39 08:11:39 ne Visit Dolores Y HEALTH 350.1.13.10 ity of [place]2.[place] [id number] [address] 2020-02-16 2020-02-16 Orders Doctor GIANG 1.2.840.114 [id number] 00:00:00 00:00:00 Only Unassigned, KIRA 350.1.13.10 [place] [facility] 4.2.7.2.686 [id number] 2020-02-16 2020-02-16 Orders Doctor GIANG 1.2.840.114 [id number] Univers 00:00:00 00:00:00 Only Unassigned, KIRA 350.1.13.10 ity of [place] [facility] 4.2.7.2.686 [place] [id number] [address] 2020-01-29 2020-01-29 Orders Doctor RAHAT 1.2.840.114 [id number] 00:00:00 00:00:00 Only Unassigned, KIRA 350.1.13.10 [facility] [place] [facility] 4.2.7.2.686 [id number] 2020-01-29 2020-01-29 Orders Doctor RAHAT 1.2.840.114 [id number] Univers 00:00:00 00:00:00 Only Unassigned, KIRA 350.1.13.10 ity of [place] [facility] 4.2.7.2.686 [place] [id number] [address] 2020-01-27 2020-01-27 Telephone O'Bryson, UNIVERSIT 1.2.840.114 [id number] 00:00:00 00:00:00 Dolores Y HEALTH 350.1.13.10 CLINICS 4.2.7.2.686 [id number] [facility] 2020-01-27 2020-01-27 Telephone O'Bryson, UNIVERSIT 1.2.840.114 [id number] Univers 00:00:00 00:00:00 [place]ores Y HEALTH 350.1.13.10 i ty of [place]2.[place] [id number] [address] 2020-01-22 2020-01-22 Telephone O'Bryson, UNIVERSIT 1.2.840.114 [id number] 00:00:00 00:00:00 [place] Y HEALTH 350.1.13.10 CLINICS 4.2.7.2.686 [id number] [facility] 2020-01-22 2020-01-22 Telephone O'Bryson, UNIVERSIT 1.2.840.114 [id number] Univers 00:00:00 00:00:00 Dolores Y HEALTH 350.1.13.10 i ty of [place] [id number] [address] 2020-01-19 2020-01-19 Orders Doctor RAHAT 1.2.840.[id number] [place] [address] 00:00:00 00:00:00 Only Unassigned, KIRA 350.1.13.10 ity of [place] [facility] 4.2.7.2.686 [place] [id number] [address] 2020-01-14 2020-01-14 Telephone O'Bryson, UNIVERSIT [id number] Univers 00:00:00 00:00:00 [facility] Y HEALTH [id number] i [phone] [address] 2020-01-12 2020-01-12 Telephone O'Bryson, UNIVERSIT [id number] Univers 00:00:00 00:00:00 [place] Y HEALTH [id number] i [id number] [id number] [address] 2019-12-30 2019-12-30 Telephone O'Bryson, UNIVERSIT [id number] Univers 00:00:00 00:00:00 [place] Y HEALTH [id number] i [id number] [address] 2019-12-23 2019-12-23 Telephone O'Bryson, UNIVERSIT [id number] Univers 00:00:00 00:00:00 [place] Y HEALTH [id number] i [id number] [id number] [address] 2019-08-06 2019-08-06 Orders Doctor RAHAT [id number] Univers 00:00:00 00:00:00 Only Unassigned, KIRA [id number] ity of [place] [facility] 4.2.7.2.686 [place] [id number] [address] 2019-07-30 2019-07-30 Telephone O'Brysno, UNIVERSIT [id number] Univers 00:00:00 00:00:00 [place]ores Y HEALTH [id number] i [id number] [id number] [address] Results Test Description Test Time Test Comments Results Result Comments Source SARS-CoV-2 (COVID-19), RT-PCR/TMA 2021-12-04 17:22:58 Test Item Value Reference Range Interpretation Comme nts SARS-CoV-2 INTERPRETATION NEGATIVE SEE NOTE S ARS-CoV-2 RNA NOT (test code = 43882) DETECTED Negative results do not preclude SARS-C oV-2 infection and should notb e used as the sole basis for patient management deci sions. Negativeresults must be combined with clinical o bservations, patient history ,and epidemiological information. Optimum specime n types and timingfor peak viral levels during infectio ns caused by SARS-CoV-2 have notbeen determined. Col lection of multiple specim ens or types ofspecimens may be necessary to detect virus. I mproper specimencollect ion and handling, sequence variab ility under primers/probes, or organism present below t he limit of detection may l ead to falsenegative r esults. Positive and negative pr edictive values oftesting are h ighly dependent on prevalence. False negative testresults are more likely when prevalence is h igh. SOURCE (test code = 02503) NASOPHARYNGEAL Note: Methodology is Natalie Sally Real-Time RT-PCR. The expected r esult or reference range is NEGATIVE (Not Detected). For more information regarding COVID -19 testing to include clinica linformation, methodology det ail, intended use, FDA author ization andrecommended fact sheets for patients or a lthcare providers, see NewTest Announcement: S ARS-CoV-2 (COVID-19) by N AAT at URL below (note,fact shee ts are provided by method given in report:https:// www.9+/c linicians/elijah t-communications/ Alternatively, see downloadable PDF fact sheet at:https://www. 9+/COVID -19-RT-PCR UNLESS OTHERWISE INDIC ATED, ALL TESTING PERFORMED [facility], [place]. [address] [place] [address] [phone] LABORATORY DIRE CTOR: JERARDO HINTON M.D. CLIA NUMBER [id number] [place]. [id number] SCR MAMM BILATERAL SARAH CAD [id number] 10:53:17 Name: Dionne : 1965 Sex: F - SCR MAMM BILATERAL TOMOCAD DIGITALBILATERAL DIGITAL SCREENING MAMMOGRAM 3D/2D WITH CAD: 10/11/2021LINICAL: Asymptomatic. Digital breast tomosynthesis was performed in addition to routine CC and MLO views. Current mammographic images were evaluated by Ummitech CAD (computer-aided detection) software. Comparison is made to exams dated 06/28/2020 mammogram, 12/20/2018 mammogram - [facility], and02/02/2012 mammogram - [facility]. The tissue of both breasts is heterogeneously dense. This may lower the sensitivity of mammography. No suspicious mass, architectural distortion, malignant type calcification, or lymph node abnormality detected. Breast architecture is stable compared to prior exams.IMPRESSION: NEGATIVEThere is no mammographic evidence of malignancy. Resume annual screening mammography in one year. Scotty Yip M.D. et/penrad:10/13/2021 10:53:17 Modular Set Crew Member: Merary Clark MM, The [facility] Mammographyletter sent: BIRADS 1-2 Normal Mammogram BI-RADS: 1 NegativeSCR MAMM BILATERAL SARAH CAD DIGITAL 2020-07-05 10:14:45 - SCR MAMM BILATERAL SARAH CAD DIGITALBILATERAL DIGITAL SCREENING MAMMOGRAM 3D/2D WITH CAD: 06/28/2020CLINICAL: Asymptomatic. Digital breast tomosynthesis was performed in addition to routine CC and MLOviews. Current mammographic images were evaluated by either a DoorDash M-Vu or a True StyleAD (computer aided detection system). Comparison is made to exams dated 12/20/2018 mammogram - [facility] and 02/02/2012 mammogram - [facility]. The tissue of both breasts is heterogeneously dense. This may lower the sensitivity of mammography. No suspicious mass, architectural distortion, malignant type calcification, or lymph node abnormality detected. Breast architecture is stable compared to prior exams.IMPRESSION: NEGATIVEThere is no mammographic evidence of malignancy. Resume annual screening mammography in one year. Antione altman/penrad:07/05/2020 10:14:45 Entry: cl - 07/05/2020 10:14:45Imaging Technologist: Zunilda Armstrong MM, The [facility] [employer] Mammographyletter sent: BIRADS 1-2 Normal Mammogram BI-RADS: 1 NegativeSCR MAMM BILATERAL CAD DIGITAL 2018-12-31 15:50:34 - SCR MAMM BILATERAL CAD DIGITALBILATERAL DIGITAL SCREENING MAMMOGRAM 3D/2D WITH CAD: 12/20/2018CLINICAL: Asymptomatic. Digital breast tomosynthesis was performed in addition to routine CC and MLO views. Current mammographic images were evaluated by either a DoorDash M-Vu or a Openplay ImageChecker CAD(computer aided detection system). Comparison is made to exam dated 02/02/2012 mammogram - [facility]. The tissue of both breasts is heterogeneously [...] dense breast tissue.Umang Valdez M.D. rb/:12/31/2018 15:50:34 Modular Set Crew Member: Larissa Sanon MM, The [facility] Mammographyletter sent: BIRADS 1-2 Normal Mammogram BI-RADS: 1 Negative
[2022-04-17] MEDS ORDERED: MORPHINE 2 MG/ML SYR ONE (03:00)
[2022-04-17] MEDS ORDERED: FAMOTIDINE 20 MG/2 ML VIAL IV ONE (03:01)
[2022-04-17] MEDS ORDERED: NA CHLORIDE 0.9% 1,000 ML ONE (03:01)
[2022-04-17] MEDS ORDERED: ONDANSETRON 4 MG/2 ML VIAL ONE (03:01)
[2022-04-17 03:23] LABS: Urine Blood Trace-intact (Negative); Urine Glucose Negative (Negative); Urine Protein Negative (Negative); Urine Specific Gravity >=1.030 (1.005-1.030)
[2022-04-17 03:34] LABS: Protime INR 1.03
[2022-04-17 03:35] LABS: Absolute Lymphocytes (CBC) 0.8 K/uL (0.7-4.9); Hematocrit 38.8 % (36.0-45.0); MPV 7.7 fL (7.6-11.3); RBC Red Blood Cell Count 4.31 M/uL (3.86-4.86)
[2022-04-17 03:51] LABS: ALT/SGPT 20 U/L (12-78); Albumin 3.5 g/dL (3.4-5.0); Alkaline Phosphatase 149 U/L (45-117); BUN Blood Urea Nitrogen 26 mg/dL (7-18); Bicarbonate 27 mmol/L (21-32); Bilirubin Total 0.3 mg/dL (0.2-1.0); Glomerular Filtration Rate 82 ml/min (=/>90); Glucose Level 98 mg/dL (74-106); Lipase 181 U/L (73-393); NT PRO-BNP 57 pg/mL (<125); Sodium Level 142 mmol/L (136-145); Troponin High Sensitivity 6.4 pg/mL (<58.9)
[2022-04-17 03:53] LABS: AST/SGOT 15 U/L (15-37); Bilirubin Direct < 0.1 mg/dL (0-0.2); Magnesium 2.4 mg/dL (1.8-2.4)
[2022-04-17] MEDS ORDERED: MAGNES/ALUMIN/SIMET 30ML UCUP ONE (04:25)
--- NOTE | 2022-04-17 04:25 | ER ---
Nurse's Notes [facility] Name: Dionne Robledo Age: 56 yrs Sex: Female : 1965 Arrival Date: 04/17/2022 Time: 01:06 Bed 6 Private MD: Diagnosis: Epigastric abdominal tenderness;Abdominal pain, unspecified;Bradycardia, unspecified;Functional dyspepsia Presentation: 04/17 02:20 Chief complaint: Patient states: c/o epigastric pain x 1 week. Denies N/V/D. lp1 02:20 Method Of Arrival: Ambulatory lp1 02:20 Acuity: ANDRÉS 3 lp1 03:39 Coronavirus screen: At this time, the client does not indicate any symptoms associated as6 with coronavirus-19. Ebola Screen: No symptoms or risks identified at this time. Initial Sepsis Screen: Does the patient meet any 2 criteria? No. Patient's initial sepsis screen is negative. Does the patient have a suspected source of infection? No. Patient's initial sepsis screen is negative. Risk Assessment: Do you want to hurt yourself or someone else? Patient reports no desire to harm self or others. Onset of symptoms is unknown. Historical: - PSHx: 02:22 Cholecystectomy; lp1 03:39 Cholecystectomy; as6 - Immunization history:: Adult Immunizations up to date. - Social history:: Smoking status: Patient denies any tobacco usage or history of. - Family history:: not pertinent. Screenin:38 Abuse screen: Denies threats or abuse. Denies injuries from another. Nutritional as6 screening: No deficits noted. Tuberculosis screening: No symptoms or risk factors identified. Fall Risk None identified. Assessment: 03:37 General: Appears in no apparent distress. Behavior is calm, cooperative. Pain: as6 Complains of pain in epigastric area Quality of pain is described as pressure. Neuro: Level of Consciousness is awake, alert, obeys commands, Oriented to person, place, time, situation. Cardiovascular: JVD is absent Patient's skin is warm and dry. Respiratory: Respiratory effort is even, unlabored, Respiratory pattern is regular, symmetrical. GI: Bowel sounds present X 4 quads. Abd is soft Reports upper abdominal pain, nausea. Vital Signs: 02:23 BP 152 / 90; Pulse 57; Resp 16; Temp 97.4; Pulse Ox 100% ; Weight 73.48 kg; Height 5 lp1 ft. 7 in. (170.18 cm); Pain 10/10; 03:37 BP 136 / 88; Pulse 52; Resp 17 S; Pulse Ox 100% on R/A; as6 04:53 BP 127 / 78; Pulse 50; Resp 15; Pulse Ox 96% ; kd3 06:16 BP 122 / 77; Pulse 45; Resp 16; Pulse Ox 99% on R/A; kd3 06:16 Pulse 51; kd3 06:29 BP 111 / 78; Pulse 51; Resp 16 S; Pulse Ox 94% on R/A; as6 02:23 Body Mass Index 25.37 (73.48 kg, 170.18 cm) lp1 ED Course: 01:06 Patient arrived in ED. kz 02:22 Triage completed. lp1 02:35 Edinson Rod MD is Attending Physician. sindi 02:46 Dann Anguiano, JAHAIRA is Primary Nurse. as6 02:59 XRAY Chest (1 view) In Process Unspecified. EDMS 03:30 Inserted saline lock: 20 gauge in right antecubital area, using aseptic technique. as6 Blood collected. 03:38 Arm band placed on. as6 03:40 Placed in gown. Bed in low position. Call light in reach. Side rails up X2. Client as6 placed on continuous cardiac and pulse oximetry monitoring. NIBP monitoring applied. Warm blanket given. 04:22 Lyle Perez MD is Referral Physician. sindi 04:43 CT Abd/Pelvis - IV Contrast Only In Process Unspecified. EDMS 06:01 Lyle Perez MD is Referral Physician. sindi 06:27 No provider procedures requiring assistance completed. IV discontinued, intact, as6 bleeding controlled, No redness/swelling at site. Pressure dressing applied. Administered Medications: 03:10 Drug: Pepcid (famotidine) 20 mg Route: IVP; Site: right antecubital; as6 06:15 Follow up: Response: No adverse reaction kd3 03:10 Drug: NS 0.9% 1000 ml Route: IV; Rate: 1 bolus; Site: right antecubital; as6 06:15 Follow up: Response: No adverse reaction kd3 06:42 Follow up: Response: No adverse reaction; IV Status: Completed infusion; IV Intake: as6 1000ml 03:26 Not Given (Patient Refused): morphine 2 mg IVP once; (PAIN>8) RASS on ADMN: Combtv4, as6 Very Agttd3, Agttd2, Rstlss1, AlertClm0, Drwsy-1, LtSdtn-2, ModSdtn-3, DpSdtn-4, UnArsble-5 x2 03:26 Drug: Zofran (Ondansetron) 4 mg Route: IVP; Site: right antecubital; as6 06:15 Follow up: Response: No adverse reaction; Nausea is decreased kd3 04:29 Drug: Dilaudid (HYDROmorphone) 0.5 mg Route: IVP; Site: right antecubital; as6 06:15 Follow up: Response: No adverse reaction; Pain is decreased kd3 04:29 Drug: GI Cocktail without - (Maalox Suspension 30 ml, Lidocaine Liquid 2 % 15 as6 ml) Route: PO; 06:16 Follow up: Response: No adverse reaction kd3 06:27 Drug: Dilaudid (HYDROmorphone) 0.5 mg Route: IVP; Site: right antecubital; as6 06:42 Follow up: Response: No adverse reaction; RASS: Alert and Calm (0) as6 Medication: 06:16 VIS not applicable for this client. kd3 Intake: 06:42 IV: 1000ml; Total: 1000ml. as6 Outcome: 04:25 Discharge ordered by . sindi 06:01 Discharge ordered by . [facility] 06:30 Discharged to home ambulatory. as6 06:30 Condition: stable 06:30 Discharge instructions given to patient, Instructed on discharge instructions, follow up and referral plans. medication usage, Demonstrated understanding of instructions, follow-up care, medications, Prescriptions given X 3. 06:42 Patient left the ED. as6 Signatures: Dispatcher MedHost EDMS Edinson Rod MD MD cha Pena, Laura, RN RN lp1 Dann Anguiano RN RN as6 Sheryl Chavez RN RN kd3 Марина Drummond Corrections: (The following items were deleted from the chart) 02:23 02:22 PMHx: CVA; lp1 lp1 02:23 02:22 PMHx: hepatitis C resolved; lp1 lp1
--- NOTE | 2022-04-17 04:25 | EDPHYS ---
Physician Documentation [facility] Name: Dionne Robledo Age: 56 yrs Sex: Female : 1965 Arrival Date: 04/17/2022 Time: 01:06 Bed 6 Private MD: ED Physician Edinson Rod HPI: 04/17 04:16 This 56 yrs old Female presents to ER via Ambulatory with complaints of sindi Abdominal Pain. 04:16 The patient presents with abdominal pain in the upper abdomen. Onset: The sindi symptoms/episode began/occurred 5 day(s) ago. The symptoms do not radiate. Associated signs and symptoms: none. The symptoms are described as crampy. Modifying factors: The symptoms are alleviated by nothing. Severity of pain: At its worst the pain was mild moderate in the emergency department the pain is unchanged. The patient has not experienced similar symptoms in the past. Historical: - PSHx: 02:22 Cholecystectomy; lp1 03:39 Cholecystectomy; as6 - Immunization history:: Adult Immunizations up to date. - Social history:: Smoking status: Patient denies any tobacco usage or history of. - Family history:: not pertinent. ROS: 04:16 Constitutional: Negative for fever, chills, and weight loss, Eyes: Negative for injury, sindi pain, redness, and discharge, ENT: Negative for injury, pain, and discharge, Neck: Negative for injury, pain, and swelling, Cardiovascular: Negative for chest pain, palpitations, and edema, Respiratory: Negative for shortness of breath, cough, wheezing, and pleuritic chest pain, Back: Negative for injury and pain, : Negative for injury, bleeding, discharge, and swelling, MS/Extremity: Negative for injury and deformity, Skin: Negative for injury, rash, and discoloration, Neuro: Negative for headache, weakness, numbness, tingling, and seizure, Psych: Negative for depression, anxiety, suicide ideation, homicidal ideation, and hallucinations, Allergy/Immunology: Negative for hives, rash, and allergies, Endocrine: Negative for neck swelling, polydipsia, polyuria, polyphagia, and marked weight changes, Hematologic/Lymphatic: Negative for swollen nodes, abnormal bleeding, and unusual bruising. 04:16 Abdomen/GI: Positive for abdominal pain, of the epigastric area, right upper quadrant and left upper quadrant. Exam: 04:18 Constitutional: This is a well developed, well nourished patient who is awake, alert, sindi and in no acute distress. Head/Face: Normocephalic, atraumatic. Eyes: Pupils equal round and reactive to light, extra-ocular motions intact. Lids and lashes normal. Conjunctiva and sclera are non-icteric and not injected. Cornea within normal limits. Periorbital areas with no swelling, redness, or edema. ENT: Nares patent. No nasal discharge, no septal abnormalities noted. Tympanic membranes are normal and external auditory canals are clear. Oropharynx with no redness, swelling, or masses, exudates, or evidence of obstruction, uvula midline. Mucous membranes moist. Neck: Trachea midline, no thyromegaly or masses palpated, and no cervical lymphadenopathy. Supple, full range of motion without nuchal rigidity, or vertebral point tenderness. No Meningismus. Chest/axilla: Normal chest wall appearance and motion. Nontender with no deformity. No lesions are appreciated. Cardiovascular: Regular rate and rhythm with a normal S1 and S2. No gallops, murmurs, or rubs. Normal PMI, no JVD. No pulse deficits. Respiratory: Lungs have equal breath sounds bilaterally, clear to auscultation and percussion. No rales, rhonchi or wheezes noted. No increased work of breathing, no retractions or nasal flaring. Back: No spinal tenderness. No costovertebral tenderness. Full range of motion. Skin: Warm, dry with normal turgor. Normal color with no rashes, no lesions, and no evidence of cellulitis. MS/ Extremity: Pulses equal, no cyanosis. Neurovascular intact. Full, normal range of motion. Neuro: Awake and alert, GCS 15, oriented to person, place, time, and situation. Cranial nerves II-XII grossly intact. Motor strength 5/5 in all extremities. Sensory grossly intact. Cerebellar exam normal. Normal gait. Psych: Awake, alert, with orientation to person, place and time. Behavior, mood, and affect are within normal limits. 04:18 Abdomen/GI: Inspection: abdomen appears normal, Bowel sounds: normal, Palpation: mild abdominal tenderness, Liver: no appreciated palpable abnormalities, Hernia: not appreciated. 04:18 ECG was reviewed by the Attending Physician. [facility] Vital Signs: 02:23 BP 152 / 90; Pulse 57; Resp 16; Temp 97.4; Pulse Ox 100% ; Weight 73.48 kg; Height 5 lp1 ft. 7 in. (170.18 cm); Pain 10/10; 03:37 BP 136 / 88; Pulse 52; Resp 17 S; Pulse Ox 100% on R/A; as6 04:53 BP 127 / 78; Pulse 50; Resp 15; Pulse Ox 96% ; kd3 06:16 BP 122 / 77; Pulse 45; Resp 16; Pulse Ox 99% on R/A; kd3 06:16 Pulse 51; kd3 06:29 BP 111 / 78; Pulse 51; Resp 16 S; Pulse Ox 94% on R/A; as6 02:23 Body Mass Index 25.37 (73.48 kg, 170.18 cm) lp1 MDM: 02:35 Patient medically screened. sindi 04:20 Differential diagnosis: bowel obstruction, diverticulitis, gastritis, Irritable bowel sindi syndrome, non-specific abd pain, pancreatitis, Peptic Ulcer Disease, Pyelonephritis, urinary tract infection. Data reviewed: vital signs, nurses notes, lab test result(s), EKG, radiologic studies, CT scan, plain films, ultrasound. Data interpreted: commercial census taker: rate is 52 beats/min, rhythm is regular, Pulse oximetry: on room air is 100 %. Test interpretation: by ED physician or midlevel provider: ECG, plain radiologic studies. Counseling: I had a detailed discussion with the patient and/or guardian regarding: the historical points, exam findings, and any diagnostic results supporting the discharge/admit diagnosis, lab results, radiology results, the need for outpatient follow up, for definitive care, a family practitioner, a sales planning coordinator. 04/17 02:37 Order name: Basic Metabolic Panel; Complete Time: 04:[address] [facility] 04/17 02:37 Order name: CBC with Diff; Complete Time: 04:[address] [facility] 04/17 02:37 Order name: LFT's; Complete Time: 04:[address] [facility] 04/17 02:37 Order name: Magnesium; Complete Time: 04:[address] [facility] 04/17 02:37 Order name: NT PRO-BNP; Complete Time: 04:[address] [facility] 04/17 02:37 Order name: PT-INR; Complete Time: 04:[address] [facility] 04/17 02:37 Order name: Troponin HS; Complete Time: 04:[address] [facility] 04/17 02:37 Order name: XRAY Chest (1 view) [facility] 04/17 02:37 Order name: Lipase; Complete Time: 04:[address] [facility] 04/17 02:37 Order name: CT Abd/Pelvis - IV Contrast Only [facility] 04/17 03:24 Order name: Urine Dipstick-Ancillary; Complete Time: 04:02 EDMS 04/17 02:37 Order name: EKG; Complete Time: 02:[address] [facility] 04/17 02:37 Order name: Cardiac monitoring; Complete Time: 03:[address] [facility] 04/17 02:37 Order name: EKG - Nurse/Tech; Complete Time: 03:[address] [facility] 04/17 02:37 Order name: IV Saline Lock; Complete Time: 03: [facility] 04/17 02:37 Order name: Labs collected and sent; Complete Time: 03:[address] [facility] 04/17 02:37 Order name: O2 Per Protocol; Complete Time: 03:[address] [facility] 04/17 02:37 Order name: O2 Sat Monitoring; Complete Time: 03: [facility] 04/17 02:37 Order name: Urine Dipstick-Ancillary (obtain specimen); Complete Time: 03:[address] [facility] EC:18 Rate is 49 beats/min. Rhythm is regular. QRS Zullinger is Normal. OR interval is normal. QRS sindi interval is normal. QT interval is normal. No Q waves. T waves are Normal. No ST changes noted. Clinical impression: Sinus bradycardia and No evidence of ischemia. Interpreted by me. Reviewed by me. Administered Medications: 03:10 Drug: Pepcid (famotidine) 20 mg Route: IVP; Site: right antecubital; as6 06:15 Follow up: Response: No adverse reaction kd3 03:10 Drug: NS 0.9% 1000 ml Route: IV; Rate: 1 bolus; Site: right antecubital; as6 06:15 Follow up: Response: No adverse reaction kd3 06:42 Follow up: Response: No adverse reaction; IV Status: Completed infusion; IV Intake: as6 1000ml 03:26 Not Given (Patient Refused): morphine 2 mg IVP once; (PAIN>8) RASS on ADMN: Combtv4, as6 Very Agttd3, Agttd2, Rstlss1, AlertClm0, Drwsy-1, LtSdtn-2, ModSdtn-3, DpSdtn-4, UnArsble-5 x2 03:26 Drug: Zofran (Ondansetron) 4 mg Route: IVP; Site: right antecubital; as6 06:15 Follow up: Response: No adverse reaction; Nausea is decreased kd3 04:29 Drug: Dilaudid (HYDROmorphone) 0.5 mg Route: IVP; Site: right antecubital; as6 06:15 Follow up: Response: No adverse reaction; Pain is decreased kd3 04:29 Drug: GI Cocktail without - (Maalox Suspension 30 ml, Lidocaine Liquid 2 % 15 as6 ml) Route: PO; 06:16 Follow up: Response: No adverse reaction kd3 06:27 Drug: Dilaudid (HYDROmorphone) 0.5 mg Route: IVP; Site: right antecubital; as6 06:42 Follow up: Response: No adverse reaction; RASS: Alert and Calm (0) as6 Disposition Summary: 04/17/22 06:01 Discharge Ordered Location: Home(04/17/22 06:01) sindi Problem: new(04/17/22 06:01) sindi Symptoms: have improved(04/17/22 06:01) sindi Condition: Stable(04/17/22 06:01) sindi Diagnosis - Epigastric abdominal tenderness(04/17/22 06:01) sindi - Abdominal pain, unspecified sindi - Bradycardia, unspecified(04/17/22 06:01) sindi - Functional dyspepsia(04/17/22 06:01) sindi Followup: sindi - With: Private Physician - When: 2 - 3 days - Reason: Recheck today's complaints, Continuance of care, Re-evaluation by your physician Followup: sindi - With: - When: 2 - 3 days - Reason: Recheck today's complaints, Continuance of care, Re-evaluation by your physician Discharge Instructions: - Discharge Summary Sheet sindi - Abdominal Pain, Adult sindi - Bradycardia, Adult sindi - Abdominal Pain, Adult, [id number] sindi Forms: - Medication Reconciliation Form sindi - Thank You Letter sindi - Antibiotic Education sindi - Prescription Opioid Use sindi - Work release form as6 Prescriptions: - Pepcid 20 mg Oral Tablet - take 1 tablet by ORAL route every 12 hours for 10 days; 20 tablet; Refills: 0, sindi Product Selection Permitted - Zofran 4 mg Oral Tablet - take 1 tablet by ORAL route every 12 hours As needed; 20 tablet; Refills: 0, sindi Product Selection Permitted - dicyclomine 20 mg Oral Tablet - take 1 tablet by ORAL route 4 times per day; 28 tablet; Refills: 0, Product sindi Selection Permitted Signatures: Dispatcher [employer] EDEdinson Miranda MD MD cha Pena, Laura RN RN lp1 Dann Anguiano RN RN as6 Sehryl Chavez RN kd3 Corrections: (The following items were deleted from the chart) 02:23 02:22 PMHx: CVA; lp1 lp1 02:23 02:22 PMHx: hepatitis C resolved; lp1 lp1 03:37 02:37 Abdomen Limited+US.RAD.BRZ ordered. EDMS EDMS 04:26 04:25 Home sindi sindi 04:26 04:25 new sindi sindi 04:26 04:25 have improved sindi sindi 04:26 04:25 Stable sindi sindi 04:26 04:25 Epigastric abdominal tenderness sindi sindi 04:26 04:25 Abdominal tenderness sindi sindi 04:26 04:25 Bradycardia, unspecified sindi sindi 04:26 04:25 Functional dyspepsia sindi sindi
[2022-04-17] MEDS ORDERED: HYDROMORPHONE HCL 0.5 MG/0.5 ML INJ ONE ×2 (04:26→06:26)
[2022-04-17] MEDS ORDERED: LIDOCAINE VISCOUS 2% SOLN 15 ML UDC ONE (04:26)
[2022-04-17 06:49] VITALS: TEMP 97.4
[2022-04-17 06:55] VITALS: BP 111/78; O2SAT 94
--- NOTE | 2022-04-17 11:24 | EKG ---
Test Date: 2022-04-17 Test Time: 03:01:11 Pastrycook'S Assistant: MEASUREMENT RESULTS: Intervals: Rate: 49 ID: [id number] QRSD: 98 QT: 422 QTc: 381 [place]: P: 38 ID: [id number] QRS: -9 T: 16 INTERPRETIVE STATEMENTS: Sinus bradycardia Minimal voltage criteria for LVH, may be normal variant Borderline ECG Compared to ECG 05/11/2020 10:15:19 Myocardial infarct finding no longer present Electronically Signed On 04-17-22 11:23:13 CDT by Silvio Woo
--- NOTE | 2022-04-17 13:49 | RAD REPORT ---
EXAM DESCRIPTION: XR Chest, 1 View CLINICAL HISTORY: ABDOMINAL DISTENTION TECHNIQUE: Frontal view of the chest. COMPARISON: No relevant prior studies available. FINDINGS: Lungs: Unremarkable. No consolidation. Pleural space: Unremarkable. No pneumothorax. Heart: Unremarkable. No cardiomegaly. Mediastinum: Unremarkable. Bones/joints: Unremarkable. IMPRESSION: No acute disease. Electronically signed by: Burke Barbour MD 04/17/2022 3:22 AM CDT Due to temporary technical issues with the PACS/Fluency reporting system, reports are being signed by the in house radiologist without review as a courtesy to ensure prompt reporting. The interpreting r adiologist is fully responsible for the content of the report.
--- NOTE | 2022-04-17 13:57 | RAD REPORT ---
EXAM DESCRIPTION: CT Abdomen and Pelvis With Intravenous Contrast CLINICAL HISTORY: The patient is 56 years old and is Female; Abdominal pain, acute, nonlocalized TECHNIQUE: Axial computed tomography images of the abdomen and pelvis with intravenous contrast. S agittal and coronal reformatted images were created and reviewed. This CT exam was performed using one or more of the following dose reduction techniques: automated exposure control, adjustment of t he mA and/or kV according to patient size, and/or use of iterative reconstruction technique. COMPARISON: No relevant prior studies available. FINDINGS: Lung bases: Multiple cysts in the lung bases. ABDOMEN: Liver: Unremarkable. No mass. Gallbladder and bile ducts: The gallbladder is not seen. No ductal dilation. Pancreas: Unremarkable. No mass. No ductal dilation. Spleen: Unremarkable. No splenomegaly. Adrenals: Unremarkable. No mass. Kidneys and ureters: Unremarkable. No solid mass. No hydronephrosis. Stomach and bowel: Unremarkable. No obstruction. No mucosal thickening. PELVIS: Appendix: No findings to suggest acute appendicitis. Bladder: Unremarkable. No mass. Reproductive: Heterogeneous appearance with calcification in the uterus suggestive of fibroids. 2.3 cm right ovarian cyst. ABDOMEN and PELVIS: Intraperitoneal space: Unremarkable. No free air. No significant fluid collection. Bones/joints: Heterogeneous appearance to the osseous structures suggestive of an infiltrative o r metabolic process. No acute fracture. No dislocation. Soft tissues: Small fat-containing umbilical hernia. Vasculature: Unremarkable. No abdominal aortic aneurysm. Lymph nodes: Unremarkable. No enlarged lymph nodes. IMPRESSION: 1. No acute finding in the abdomen/pelvis. 2. The gallbladder is not seen. 3. Heterogeneous appearance with calcification in the uterus suggestive of fibroids. 4. 2.3 cm right ovarian cyst. 5. Heterogeneous appearance to the osseous structures suggestive of an infiltrative or metabolic pr ocess. 6. Additional non-emergent findings as above. Electronically signed by: Héctor Sanders MD 04/17/2022 5:30 AM CDT Due to temporary technical issues with the PACS/Fluency reporting system, reports are being signed by the in house radiologist without review as a courtesy to ensure prompt reporting. The interpreting r adiologist is fully responsible for the content of the report.
== END 2022-04-17 06:42 | disposition home or self-care (01) ==
LOC: ER 01:03
DX: K30 Functional dyspepsia (principal); R00.1 Bradycardia, unspecified
CPT/HCPCS: 96361; 93005; 85025; 80048; 36415; 83735; 85610; 80076; 81003; 84484; 83690; 83880; 74177; 71045; 96375; 96374; 99284; Q9967; J1170 ×2; J7030; J2405; J3490; J2270

== ENCOUNTER 2022-04-23 13:35 | Emergency (ER) | payer OTHER ==
--- OUTSIDE RECORDS SUMMARY | 2022-04-23 13:38 | XMS REPORT | Continuity of Care Document ---
:1965 Author Organization [facility] t Address [address] [place] [address] Care Team Providers Name Role Phone Doctor Unassigned, Name Attending Clinician Unavailable Dang MYERS Attending Clinician O'BRYSON Attending Clinician Unavailable Payers Payer Name Policy Type Policy Number Effective Date Expiration Date S ource Problems Condition Condition Condition Status Onset Resolution Last Treating Co mments Source Name Details Category Date Date Treatment Clinician Date Chronic Chronic Disease Active Univers hepatitis hepatitis 9 ity of C virus C virus 00:00: [place] infection infection [address] [place] [address] No known No known Disease Unive rs active active ity of problems problems Formerly [facility] Pain in Pain in Diagnosis Active Commo n joint of joint of Spirit right knee right knee - [facility] Primary Primary Diagnosis Active Commo n osteoarthr osteoarthr Sp xochitl itis of itis of - [facility] right knee right knee [facility] Patellar Patellar Diagnosis Active Com mon tendinitis tendinitis Sp xochitl of right of right - [facility] knee knee [facility] Allergies, Adverse Reactions, Alerts Allergy Allergy Status Severity Reaction(s) Onset Inactive Treating Comm ents Source Name Type Date Date Clinician CODEINE DRUG Active N/V Univers INGREDI 6-21 ity of 00:00: [place] [address] [place] [address] Codeine Propensi Active Nausea Univers ty to and/or 05-16 ity of adverse Vomiting 00:00: [place] reaction 00 Medical s Branch codeine Adverse Active Info Not Common Reaction Available Spiri t - [facility] Social History Social Habit Start Date Stop Date Quantity Comments Source Tobacco use and 2019-08-22 2019-08-22 Current user Univers ity of exposure 00:00:00 00:00:00 [facility] Alcohol intake 2019-08-22 2019-08-22 Current drinker Unive rsity of 00:00:00 00:00:00 of alcohol [facility] (finding) Branch Sex [birth year] Universit y of 00:00:00 00:00:00 [facility] Smoking Status Start Date Stop Date Source Current some day smoker 2019-08-22 00:00:00 [facility] ersity [facility] Medications Ordered Filled Start Stop Current Ordering Indication Dosage Frequency Signature Comments Components Source Medication Medication Date Date Medication? Clinician (SIG) Name Name Meloxicam Meloxicam 2019- 2020- No Robert 1 tablet Common 08-05 [place] [facility] 00:00: 00:00 - [facility] 00 :00 [facility] aspirin 81 2019-0 Yes 81mg Take 81 mg U nivers mg chewable 5-22 by mouth ity of tablet 19:38: daily. [address] Branch aspirin 81 2020-0 Yes 81mg Take 81 mg U nivers mg chewable 5-22 by mouth ity of tablet 19:38: daily. [address] aspirin 81 2020-0 Yes 81mg Take 81 mg U nivers mg chewable 5-22 by mouth ity of tablet 19:38: daily. [address] aspirin 81 2020-0 Yes 81mg Take 81 mg U nivers mg chewable 5-22 by mouth ity of tablet 19:38: daily. [address] aspirin 81 2020-0 Yes 81mg Take 81 mg U nivers mg chewable 5-22 by mouth ity of tablet 19:38: daily. [address] ibuprofen Yes [id number] 600mg Take 1 U nivers 600 mg 6-24 tablet by ity of tablet 00:00: mouth [place] 00 every 6 Medical (six) Branch hours as needed for Pain (scale 4-6). phenazopyri Yes [id number] 200mg Take 1 Univers dine 200 mg 6-24 tablet by ity of tablet 00:00: mouth 3 [place] 00 (three) Medical times Branch daily as needed for Pain. ibuprofen 2019-0 Yes [id number] 600mg Take 1 U nivers 600 mg 6-24 tablet by ity of tablet 00:00: mouth [place] 00 every 6 Medical (six) Branch hours as needed for Pain (scale 4-6). phenazopyri 2018-0 Yes [id number] 200mg Take 1 Univers dine 200 mg 6-24 tablet by ity of tablet 00:00: mouth 3 [place] 00 (three) Medical times Branch daily as needed for Pain. ibuprofen 2018-0 Yes [id number] 600mg Take 1 U nivers 600 mg 6-24 tablet by ity of tablet 00:00: mouth [place] 00 every 6 Medical (six) Branch hours as needed for Pain (scale 4-6). phenazopyri 2018-0 Yes [id number] 200mg Take 1 Univers dine 200 mg 6-24 tablet by ity of tablet 00:00: mouth 3 [place] 00 (three) Medical times Branch daily as needed for Pain. ibuprofen 0 Yes [id number] 600mg Take 1 U nivers 600 mg 6-24 tablet by ity of tablet 00:00: mouth [place] 00 every 6 Medical (six) Branch hours as needed for Pain (scale 4-6). phenazopyri 2018-0 Yes [id number] 200mg Take 1 Univers dine 200 mg 6-24 tablet by ity of tablet 00:00: mouth 3 [place] 00 (three) Medical times Branch daily as needed for Pain. ibuprofen 0 Yes [id number] 600mg Take 1 U nivers 600 mg 6-24 tablet by ity of tablet 00:00: mouth [place] 00 every 6 Medical (six) Branch hours as needed for Pain (scale 4-6). phenazopyri 2018-0 Yes [id number] 200mg Take 1 Univers dine 200 mg 6-24 tablet by ity of tablet 00:00: mouth 3 [place] 00 (three) Medical times Branch daily as needed for Pain. ibuprofen 2018-0 Yes [id number] 600mg Take 1 U nivers 600 mg 6-24 tablet by ity of tablet 00:00: mouth [place] 00 every 6 Medical (six) Branch hours as needed for Pain (scale 4-6). phenazopyri 2019-0 Yes [id number] 200mg Take 1 Univers dine 200 mg 6-24 tablet by ity of tablet 00:00: mouth 3 [place] 00 (three) Medical times Branch daily as needed for Pain. ibuprofen 2018-0 Yes [id number] 600mg Take 1 U nivers 600 mg 6-24 tablet by ity of tablet 00:00: mouth [place] 00 every 6 Medical (six) Branch hours as needed for Pain (scale 4-6). phenazopyri 2018-0 Yes [id number] 200mg Take 1 Univers dine 200 mg 6-24 tablet by ity of tablet 00:00: mouth 3 [place] 00 (three) Medical times Branch daily as needed for Pain. ibuprofen 0 Yes [id number] 600mg Take 1 U nivers 600 mg 6-24 tablet by ity of tablet 00:00: mouth [place] 00 every 6 Medical (six) Branch hours as needed for Pain (scale 4-6). phenazopyri 0 Yes [id number] 200mg Take 1 Univers dine 200 mg 6-24 tablet by ity of tablet 00:00: mouth 3 (three) Medical times Branch daily as needed for Pain. ibuprofen Yes [id number] 600mg Take 1 U nivers 600 mg 6-24 tablet by ity of tablet 00:00: mouth [place] 00 every 6 Medical (six) Branch hours as needed for Pain (scale 4-6). phenazopyri 0 Yes [id number] 200mg Take 1 Univers dine 200 mg 6-24 tablet by ity of tablet 00:00: mouth 3 (three) Medical times Branch daily as needed for Pain. ibuprofen 0 Yes [id number] 600mg Take 1 U nivers 600 mg 6-24 tablet by ity of tablet 00:00: mouth [place] 00 every 6 Medical (six) Branch hours as needed for Pain (scale 4-6). phenazopyri 0 Yes [id number] 200mg Take 1 Univers dine 200 mg 6-24 tablet by ity of tablet 00:00: mouth 3 00 (three) Medical times Branch daily as needed for Pain. ibuprofen 2018-0 Yes [id number] 600mg Take 1 U nivers 600 mg 6-24 tablet by ity of tablet 00:00: mouth [place] 00 every 6 Medical (six) Branch hours as needed for Pain (scale 4-6). phenazopyri 2019-0 Yes [id number] 200mg Take 1 Univers dine 200 mg 6-24 tablet by ity of tablet 00:00: mouth 3 [place] 00 (three) Medical times Branch daily as needed for Pain. ibuprofen 2019-0 Yes [id number] 600mg Take 1 U nivers 600 mg 6-24 tablet by ity of tablet 00:00: mouth [place] 00 every 6 Medical (six) Branch hours as needed for Pain (scale 4-6). phenazopyri 2019-0 Yes [id number] 200mg Take 1 Univers dine 200 mg 6-24 tablet by ity of tablet 00:00: mouth 3 [place] 00 (three) Medical times Branch daily as needed for Pain. ibuprofen 0 Yes [id number] 600mg Take 1 U nivers 600 mg 6-24 tablet by ity of tablet 00:00: mouth [place] 00 every 6 Medical (six) Branch hours as needed for Pain (scale 4-6). phenazopyri 2018-0 Yes [id number] 200mg Take 1 Univers dine 200 mg 6-24 tablet by ity of tablet 00:00: mouth 3 00 (three) Medical times Branch daily as needed for Pain. ibuprofen 0 Yes [id number] 600mg Take 1 U nivers 600 mg 6-24 tablet by ity of tablet 00:00: mouth [place] 00 every 6 Medical (six) Branch hours as needed for Pain (scale 4-6). phenazopyri 2018-0 Yes [id number] 200mg Take 1 Univers dine 200 mg 6-24 tablet by ity of tablet 00:00: mouth 3 00 (three) Medical times Branch daily as needed for Pain. ibuprofen 2018-0 Yes [id number] 600mg Take 1 U nivers 600 mg 6-24 tablet by ity of tablet 00:00: mouth [place] 00 every 6 Medical (six) Branch hours as needed for Pain (scale 4-6). phenazopyri 2019-0 Yes [id number] 200mg Take 1 Univers dine 200 mg 6-24 tablet by ity of tablet 00:00: mouth 3 [place] 00 (three) Medical times Branch daily as needed for Pain. ibuprofen 2019-0 Yes [id number] 600mg Take 1 U nivers 600 mg 6-24 tablet by ity of tablet 00:00: mouth [place] 00 every 6 Medical (six) Branch hours as needed for Pain (scale 4-6). phenazopyri 2019-0 Yes [id number] 200mg Take 1 Univers dine 200 mg 6-24 tablet by ity of tablet 00:00: mouth 3 [place] 00 (three) Medical times Branch daily as needed for Pain. ibuprofen 2019-0 Yes [id number] 600mg Take 1 U nivers 600 mg 6-24 tablet by ity of tablet 00:00: mouth [place] 00 every 6 Medical (six) Branch hours as needed for Pain (scale 4-6). phenazopyri 2019-0 Yes [id number] 200mg Take 1 Univers dine 200 mg 6-24 tablet by ity of tablet 00:00: mouth 3 [place] 00 (three) Medical times Branch daily as needed for Pain. ibuprofen 0 Yes [id number] 600mg Take 1 U nivers 600 mg 6-24 tablet by ity of tablet 00:00: mouth [place] 00 every 6 Medical (six) Branch hours as needed for Pain (scale 4-6). phenazopyri 2018-0 Yes [id number] 200mg Take 1 Univers dine 200 mg 6-24 tablet by ity of tablet 00:00: mouth 3 [place] 00 (three) Medical times Branch daily as needed for Pain. ibuprofen 0 Yes [id number] 600mg Take 1 U nivers 600 mg 6-24 tablet by ity of tablet 00:00: mouth [place] 00 every 6 Medical (six) Branch hours as needed for Pain (scale 4-6). phenazopyri 2019-0 Yes [id number] 200mg Take 1 Univers dine 200 mg 6-24 tablet by ity of tablet 00:00: mouth 3 [place] 00 (three) Medical times Branch daily as needed for Pain. ibuprofen 2018-0 Yes [id number] 600mg Take 1 U nivers 600 mg 6-24 tablet by ity of tablet 00:00: mouth [place] 00 every 6 Medical (six) Branch hours as needed for Pain (scale 4-6). phenazopyri 2019-0 Yes [id number] 200mg Take 1 Univers dine 200 mg 6-24 tablet by ity of tablet 00:00: mouth 3 [place] 00 (three) Medical times Branch daily as needed for Pain. ibuprofen 2019-0 Yes [id number] 600mg Take 1 U nivers 600 mg 6-24 tablet by ity of tablet 00:00: mouth [place] 00 every 6 Medical (six) Branch hours as needed for Pain (scale 4-6). phenazopyri 2019-0 Yes [id number] 200mg Take 1 Univers dine 200 mg 6-24 tablet by ity of tablet 00:00: mouth 3 [place] 00 (three) Medical times Branch daily as needed for Pain. phenazopyri 2019-0 Yes [id number] 200mg Take 1 Univers dine 200 mg 6-24 tablet by ity of tablet 00:00: mouth 3 [place] 00 (three) Medical times Branch daily as needed for Pain. ibuprofen 2019-0 Yes [id number] 600mg Take 1 U nivers 600 mg 6-24 tablet by ity of tablet 00:00: mouth [place] 00 every 6 Medical (six) Branch hours as needed for Pain (scale 4-6). phenazopyri 2019-0 Yes [id number] 200mg Take 1 Univers dine 200 mg 6-24 tablet by ity of tablet 00:00: mouth 3 [place] 00 (three) Medical times Branch daily as needed for Pain. ibuprofen 2019-0 Yes [id number] 600mg Take 1 U nivers 600 mg 6-24 tablet by ity of tablet 00:00: mouth [place] 00 every 6 Medical (six) Branch hours as needed for Pain (scale 4-6). aspirin 81 2019-0 Yes 81mg Take 81 mg U nivers mg chewable 4-05 by mouth ity of tablet 21:37: daily. [address] aspirin 81 2019-0 Yes 81mg Take 81 mg U nivers mg chewable 4-05 by mouth ity of tablet 21:37: daily. [address] Branch aspirin 81 2019-0 Yes 81mg Take 81 mg U nivers mg chewable 4-05 by mouth ity of tablet 21:37: daily. [address] aspirin 81 2019-0 Yes 81mg Take 81 mg U nivers mg chewable 4-05 by mouth ity of tablet 21:37: daily. [address] aspirin 81 2019-0 Yes 81mg Take 81 mg U nivers mg chewable 4-05 by mouth ity of tablet 21:37: daily. [address] Branch aspirin 81 2019-0 Yes 81mg Take 81 mg U nivers mg chewable 4-05 by mouth ity of tablet 21:37: daily. [address] aspirin 81 2019-0 Yes 81mg Take 81 mg U nivers mg chewable 4-05 by mouth ity of tablet 21:37: daily. [address] aspirin 81 2019-0 Yes 81mg Take 81 mg U nivers mg chewable 4-05 by mouth ity of tablet 21:37: daily. [address] Branch aspirin 81 2019-0 Yes 81mg Take 81 mg U nivers mg chewable 4-05 by mouth ity of tablet 21:37: daily. [address] Branch aspirin 81 2019-0 Yes 81mg Take 81 mg U nivers mg chewable 4-05 by mouth ity of tablet 21:37: daily. [address] Branch aspirin 81 2019-0 Yes 81mg Take 81 mg U nivers mg chewable 4-05 by mouth ity of tablet 21:37: daily. [address] Branch aspirin 81 2019-0 Yes 81mg Take 81 mg U nivers mg chewable 4-05 by mouth ity of tablet 21:37: daily. [address] Branch aspirin 81 2019-0 Yes 81mg Take 81 mg U nivers mg chewable 4-05 by mouth ity of tablet 21:37: daily. [address] Branch aspirin 81 2019-0 Yes 81mg Take 81 mg U nivers mg chewable 4-05 by mouth ity of tablet 21:37: daily. [address] Branch aspirin 81 2019-0 Yes 81mg Take 81 mg U nivers mg chewable 4-05 by mouth ity of tablet 21:37: daily. [address] Branch aspirin 81 2019-0 Yes 81mg Take 81 mg U nivers mg chewable 4-05 by mouth ity of tablet 21:37: daily. [address] Branch aspirin 81 2019-0 Yes 81mg Take 81 mg U nivers mg chewable 4-05 by mouth ity of tablet 21:37: daily. [address] aspirin 81 2019-0 Yes 81mg Take 81 mg U nivers mg chewable 4-05 by mouth ity of tablet 21:37: daily. [address] dicyclomine 2018-0 Yes 20mg Take 1 Univ ers (BENTYL) 20 6-21 tablet by ity of mg tablet 00:00: mouth [place] [address] ([facility]) Medical times [place] daily as needed for Abdominal pain for up to 30 doses. dicyclomine 2018-0 Yes 20mg Take 1 Univ ers (BENTYL) 20 6-21 tablet by ity of mg tablet 00:00: mouth 4 [place] ([facility]) [facility] times [place] daily as needed for Abdominal pain for up to 30 doses. dicyclomine 2018-0 Yes 20mg Take 1 Univ ers (BENTYL) 20 6-21 tablet by ity of mg tablet 00:00: mouth ([facility]) Medical times Branch daily as needed for Abdominal pain for up to 30 doses. dicyclomine 2018-0 Yes 20mg Take 1 Univ ers (BENTYL) 20 6-21 tablet by ity of mg tablet 00:00: mouth ([facility]) Medical times Branch daily as needed for Abdominal pain for up to 30 doses. dicyclomine 2018-0 Yes 20mg Take 1 Univ ers (BENTYL) 20 6-21 tablet by ity of mg tablet 00:00: mouth ([facility]) Medical times Branch daily as needed for Abdominal pain for up to 30 doses. dicyclomine 2018-0 Yes 20mg Take 1 Univ ers (BENTYL) 20 6-21 tablet by ity of mg tablet 00:00: mouth ([facility]) Medical times Branch daily as needed for Abdominal pain for up to 30 doses. dicyclomine 2018-0 Yes 20mg Take 1 Univ ers (BENTYL) 20 6-21 tablet by ity of mg tablet 00:00: mouth ([facility]) Medical times Branch daily as needed for Abdominal pain for up to 30 doses. dicyclomine 2018-0 Yes 20mg Take 1 Univ ers (BENTYL) 20 6-21 tablet by ity of mg tablet 00:00: mouth ([facility]) Medical times Branch daily as needed for Abdominal pain for up to 30 doses. dicyclomine 2018-0 Yes 20mg Take 1 Univ ers (BENTYL) 20 6-21 tablet by ity of mg tablet 00:00: mouth ([facility]) Medical times Branch daily as needed for Abdominal pain for up to 30 doses. dicyclomine 2018-0 Yes 20mg Take 1 Univ ers (BENTYL) 20 6-21 tablet by ity of mg tablet 00:00: mouth ([facility]) Medical times Branch daily as needed for Abdominal pain for up to 30 doses. dicyclomine 2018-0 Yes 20mg Take 1 Univ ers (BENTYL) 20 6-21 tablet by ity of mg tablet 00:00: mouth ([facility]) Medical times Branch daily as needed for Abdominal pain for up to 30 doses. dicyclomine 2018-0 Yes 20mg Take 1 Univ ers (BENTYL) 20 6-21 tablet by ity of mg tablet 00:00: mouth ([facility]) Medical times Branch daily as needed for Abdominal pain for up to 30 doses. dicyclomine 2018-0 Yes 20mg Take 1 Univ ers (BENTYL) 20 6-21 tablet by ity of mg tablet 00:00: mouth () Medical times Branch daily as needed for Abdominal pain for up to 30 doses. dicyclomine 2018-0 Yes 20mg Take 1 Univ ers (BENTYL) 20 6-21 tablet by ity of mg tablet 00:00: mouth ([facility]) Medical times Branch daily as needed for Abdominal pain for up to 30 doses. dicyclomine 2018-0 Yes 20mg Take 1 Univ ers (BENTYL) 20 6-21 tablet by ity of mg tablet 00:00: mouth ([facility]) Medical times Branch daily as needed for Abdominal pain for up to 30 doses. dicyclomine 2018-0 Yes 20mg Take 1 Univ ers (BENTYL) 20 6-21 tablet by ity of mg tablet 00:00: mouth ([facility]) Medical times Branch daily as needed for Abdominal pain for up to 30 doses. dicyclomine 2018-0 Yes 20mg Take 1 Univ ers (BENTYL) 20 6-21 tablet by ity of mg tablet 00:00: mouth () Medical times Branch daily as needed for Abdominal pain for up to 30 doses. dicyclomine 2018-0 Yes 20mg Take 1 Univ ers (BENTYL) 20 6-21 tablet by ity of mg tablet 00:00: mouth ([facility]) Medical times Branch daily as needed for Abdominal pain for up to 30 doses. dicyclomine 2018-0 Yes 20mg Take 1 Univ ers (BENTYL) 20 6-21 tablet by ity of mg tablet 00:00: mouth ([facility]) Medical times Branch daily as needed for Abdominal pain for up to 30 doses. dicyclomine 2018-0 Yes 20mg Take 1 Univ ers (BENTYL) 20 6-21 tablet by ity of mg tablet 00:00: mouth ([facility]) Medical times Branch daily as needed for Abdominal pain for up to 30 doses. dicyclomine 2018-0 Yes 20mg Take 1 Univ ers (BENTYL) 20 6-21 tablet by ity of mg tablet 00:00: mouth 4 00 (four) Medical times Branch daily as needed for Abdominal pain for up to 30 doses. dicyclomine 2018-0 Yes 20mg Take 1 Univ ers (BENTYL) 20 6-21 tablet by ity of mg tablet 00:00: mouth 4 [place] 00 (four) Medical times Branch daily as needed for Abdominal pain for up to 30 doses. dicyclomine 2018-0 Yes 20mg Take 1 Univ ers (BENTYL) 20 6-21 tablet by ity of mg tablet 00:00: mouth 4 00 (four) Medical times Branch daily as needed for Abdominal pain for up to 30 doses. Diclofenac Diclofenac Yes Robert not Common Sodium Sodium [place] defined [facility] Artificial Artificial Yes Robert not Common Tears Tears [place] [facility] Yes Robert not Comm on [place] defined [facility] MethylPREDN MethylPREDN Yes Robert not Common ISolone ISolone [place] defined [facility] Valacyclovi Valacyclovi Yes Robert not Common r HCl r HCl [place] defined [facility] Aspirin Low Aspirin Low Yes Robert not Common Dose Dose [place] defined [facility] PredniSONE PredniSONE Yes Robert not Common [place] defined [facility] Amoxicillin Amoxicillin Yes Robert not Common -Pot -Pot [place] defined [facility] Clavulanate Clavulanate [facility] Procedures Procedure Date / Time Performing Clinician Source Performed INSURANCE CORRESPONDENCE 2021-02-22 05:01:00 Doctor Alston, [facility] [place] [facility] AUTHORIZATION FOR RELEASE 2021-01-25 06:01:00 Doctor Alecia [facility] [place] [facility] EXTERNAL PROVIDER RECORDS 2020-02-16 05:01:00 Doctor Venkataigned [facility] [place] [facility] EXTERNAL PROVIDER RECORDS 2020-01-29 06:01:00 Doctor Alecia, [facility] [place] [facility] EXTERNAL PROVIDER RECORDS 2020-01-19 06:01:00 Doctor Alecia, [facility] [place] [facility] EXTERNAL PROVIDER RECORDS 2019-08-06 05:01:00 Doctor Alecia [facility] [place] [facility] Encounters Start End Encounter Admission Attending Care Care Encounter Source Date/Time Date/Time Type Type Clinicians Facility Department ID 2021-12-21 Outpatient [facility] [id number] Common 11:45:05 [id number] [facility] 2021-12-21 Outpatient [facility] [id number] Common 11:44:56 [id number] [facility] 2021-02-22 2021-02-22 Orders Doctor RAHAT 1.2.840.114 [id number] Univers 00:00:00 00:00:00 Only Unassigned, KIRA 350.1.13.10 ity of [facility] 4.2.7.2.686 [place] [id number] [facility] 009 Branch 2021-01-25 2021-01-25 Orders Doctor RAHAT 1.2.840.114 [id number] Univers 00:00:00 00:00:00 Only Unassigned, KIRA 350.1.13.10 ity of [facility] 4.2.7.2.686 [place] [id number] [facility] 009 Branch 2020 2020 Outpatient Brazcecil Jhont [id number] Common 14:00:00 14:00:00 [facility] 2020-05-24 2020-05-24 Telephone Dang, [facility] 1.2.840.114 [id number] 00:00:00 00:00:00 [place] [facility] 350.1.13.10 CLINICS 4.2.7.2.686 [id number] [facility] 2020-05-24 2020-05-24 Telephone Dang, [facility] 1.2.840.114 [id number] Univers 00:00:00 00:00:00 [place] [facility] 350.1.13.10 i ty of [place]ICS 4[place] [id number] [id number] Branch 2020-04-22 2020-04-22 Telephone Dang, UNIVERSIT 1.2.840.114 [id number] 00:00:00 00:00:00 [place] [facility] 350.1.13.10 CLINICS 4.2.7.2.686 [id number] [facility] 2020-04-22 2020-04-22 Telephone OBrittani, UNIVERSIT 1.2.840.114 [id number] Univers 00:00:00 00:00:00 [facility] 350.1.13.10 i ty of [place] [id number] [address] 2020-04-16 2020-04-16 Outpatient R DANG, [facility] [id number] Univers 15:00:00 15:00:00 [facility] [id number] [facility]-16 2020-04-16 Outpatient R OBRITTANI, [facility] [id number] Univers 15:00:00 15:00:00 [facility] 2020-04-16 2020-04-16 Telemedici ODemetriaBryson, UNIVERSIT 1.2.840.11 [id number] 07:41:39 08:11:39 ne Visit [facility] 350.1.13.10 CLINICS 4.2.7.2.686 [id number] [facility] 2020-04-16 2020-04-16 Telemedici OJulienBryson, UNIVERSIT 1.2.840.11 [id number] [facility] 07:41:39 08:11:39 ne Visit [facility] 350.1.13.10 ity of CL[place] [id number] [address] 2020-02-16 2020-02-16 Orders Doctor GIANG 1.2.840.114 [id number] 00:00:00 00:00:00 Only Unassigned, KIRA 350.1.13.10 [facility] 4.2.7.2.686 [id number] 2020-02-16 2020-02-16 Orders Doctor GIANG 1.2.840.114 [id number] Univers 00:00:00 00:00:00 Only Unassigned, KIRA 350.1.13.10 ity of [facility] 4.2.7.2.686 [place] [id number] [address] 2020-01-29 2020-01-29 Orders Doctor RAHAT 1.2.840.114 [id number] 00:00:00 00:00:00 Only Unassigned, KIRA 350.1.13.10 [facility] 4.2.7.2.686 [id number] 2020-01-29 2020-01-29 Orders Doctor RAHAT 1.2.840.114 [id number] Univers 00:00:00 00:00:00 Only Unassigned, KIRA 350.1.13.10 ity of [facility] 4.2.7.2.686 [place] [id number] [address] 2020-01-27 2020-01-27 Telephone O'Bryson, [facility]ERS[facility] 1.2.840.114 [id number] 00:00:00 00:00:00 [place] [facility] 350.1.13.10 CLINICS 4.2.7.2.686 [id number] [facility] 2020-01-27 2020-01-27 Telephone O'Bryson, [facility]ERS[facility] 1.2.840.114 [id number] Univers 00:00:00 00:00:00 [place] [facility] 350.1.13.10 i ty [place] [id number] [address] 2020-01-22 2020-01-22 Telephone O'Bryson, [facility] [place] [facility] 1.2.840.114 [id number] 00:00:00 00:00:00 [place] [facility] 350.1.13.10 CLINICS 4.2.7.2.686 [id number] [facility] 2020-01-22 2020-01-22 Telephone O'Bryson, [facility] 1.2.840.114 [id number] Univers 00:00:00 00:00:00 [place] [facility] 350.1.13.10 i ty of [place] [id number] [address] 2020-01-19 2020-01-19 Orders Doctor RAHAT [id number] Univers 00:00:00 00:00:00 Only Unassigned, KIRA 350.1.13.10 ity of [place] [facility] 4.2.7.2.686 [place] as [phone] [address] 2020-01-14 2020-01-14 Telephone O'Bryson, UNIVERSIT 1.2.840.114 [id number] Univers 00:00:00 00:00:00 [place] [facility] 350.1.13.10 i [place] [phone] [address] 2020-01-12 2020-01-12 Telephone O'Bryson, UNIVERSIT 1.2.840.114 [id number] Univers 00:00:00 00:00:00 [place] [facility] 350.1.13.10 i [place] [phone] [address] 2019-12-30 2019-12-30 Telephone O'Bryson, UNIVERSIT [id number] Univers 00:00:00 00:00:00 [place] [facility] 350.1.13.10 i [place] [phone] [address] 2019-12-23 2019-12-23 Telephone OEviti, UNIVERSIT 1.2.840.114 [id number] Univers 00:00:00 00:00:00 [place] [facility] 350.1.13.10 i [place] [phone] [address] 2019-08-06 2019-08-06 Orders Doctor RAHAT [id number] Univers 00:00:00 00:00:00 Only Unassigned, KIRA 350.1.13.10 [place]y of [place] [facility] 4.2.7.2.686 [place] [phone] [address] 2019-07-30 2019-07-30 Telephone OEviti, [facility] 1.2.840.114 [id number] Univers 00:00:00 00:00:00 [place] 350.1.13.10 i [phone] [address] Results Test Description Test Time Test Comments Results Result Comments Source [facility], THIRD GENERATION 2022-04-21 05:20:11 Test Item Value Reference Range Interpretation Comme nts [facility], THIRD GENERATION (test 3.150 UIU/ML 0.400-4.100 UNLESS OTHERWISE code = 2821) INDICATED, ALL TESTING PERFORMED [facility], [place] [place] [address] LABORATORY DIRE CTOR: JERARDO HINTON M.D. CLIA NUMBER [id number] CAP ACCREDITATION N O. [id number] SARS-CoV-2 (COVID-19), RT-PCR/[id number] 17:22:58 Test Item Value Reference Interpretation Comments Range SARS-CoV-2 NEGATIVE SEE NOTE SARS-CoV-2 RNA NOT INTERPRETATION DETECTEDNegat praneeth (test code = 40156) results do not preclude SARS-CoV-2 infe ction and should notb e used as the sole bas is for patient managem ent decisions. Negativeresults must be combined with c linical observations, p atient history,and epidemiological information. Op timum specimen types and timingfor peak viral levels during infections caus ed by SARS-CoV-2 have notbeen determined. Col lection of multiple spe cimens or types ofspec imens may be necessar y to detect virus. I mproper specimencollect ion and handling, seque nce variability und er primers/probes, or organism presen t below the limit of de tection may lead to falsenegative r esults. Positive and ne gative predictive valu es oftesting are h ighly dependent on prevalence. Fal se negative testre sults are more likely when prevalence is h igh. SOURCE (test code = NASOPHARYNGEAL Note: [place] [address]) Natalie Sally Marielena l-Time RT-PCR. The exp ected result or ref erence range is NEGATI VE (Not Detected). For more information reg arding COVID-19 testin g to include clinicalinforma tion, methodology det ail, intended use, F DA authorization andrecommended fact sheets for ann ents or healthcare prov iders, see NewTest Announcement: SARS-CoV-2 (COV ID-19) by NAAT at URL below (note,fact shee ts are provided by met hod given in report:https:// [email or web address] [email or web address]/clinici ans/clie nt-communicatio ns/ Alternatively, see downloadable PD F fact sheet at:https://www. niiu. IntraStage/COVID-19-RT -PCR UNLESS OTHERW ISE INDICATED, ALL TESTING PERFORMED [facility] [employer] [facility]. [address] [place] [address] 4 LABORATORY DI AMINAH: JERARDO RESTREPO M.D. CATALINA Kaufman [id number] CAP ACCREDITATION N O. [id number] SCR MAMM BILATERAL SARAH CAD [id number] 10:53:17 Name: Dionne : 1965 Sex: F - SCR MAMM BILATERAL TOMOCAD DIGITALBILATERAL DIGITAL SCREENING MAMMOGRAM 3D/2D WITH CAD: 10/11/2021LINICAL: Asymptomatic. Digital breast tomosynthesis was performed in addition to routine CC and MLO views. Current mammographic images were evaluated by [employer] ImageMulliganPlus CAD (computer-aided detection) software. Comparison is made to exams dated 06/28/2020 mammogram, 12/20/2018 mammogram - [facility], and02/02/2012 mammogram - [facility]. The tissue of both breasts is heterogeneously dense. This may lower the sensitivity of mammography. No suspicious mass, architectural distortion, malignant type calcification, or lymph node abnormality detected. Breast architecture is stable compared to prior exams.IMPRESSION: NEGATIVEThere is no mammographic evidence of malignancy. Resume annual screening mammography in one year. Scotty Yip M.D. et/penrad:10/13/2021 10:53:17 Florist Supplies Salesperson: Merary Clark MM, The [employer] Mammographyletter sent: BIRADS 1-2 Normal Mammogram BI-RADS: 1 NegativeSCR MAMM BILATERAL SARAH CAD DIGITAL 2020-07-05 10:14:45 - SCR MAMM BILATERAL SARAH CAD DIGITALBILATERAL DIGITAL SCREENING MAMMOGRAM 3D/2D WITH CAD: 06/28/2020CLINICAL: Asymptomatic. Digital breast tomosynthesis was performed in addition to routine CC and MLOviews. Current mammographic images were evaluated by either a [employer] M-Vu or a [employer] ImageCheckerCAD (computer aided detection system). Comparison is made to exams dated 12/20/2018 mammogram - [address] [facility] [facility] and 02/02/2012 mammogram - [facility]. The tissue of both breasts is heterogeneously dense. This may lower the sensitivity of mammography. No suspicious mass, architectural distortion, malignant type calcification, or lymph node abnormality detected. Breast architecture is stable compared to prior exams.IMPRESSION: NEGATIVEThere is no mammographic evidence of malignancy. Resume annual screening mammography in one year. Antione Chiang M.D. ss/penrad:07/05/2020 10:14:45 Entry: - 07/05/2020 10:14:45Imaging Technologist: Zunilda Armstrong MM, [facility] Mammographyletter sent: BIRADS 1-2 Normal Mammogram BI-RADS: 1 NegativeSCR MAMM BILATERAL CAD DIGITAL 2018-12-31 15:50:34 - SCR MAMM BILATERAL CAD DIGITALBILATERAL DIGITAL SCREENING MAMMOGRAM 3D/2D WITH CAD: 12/20/2018CLINICAL: Asymptomatic. Digital breast tomosynthesis was performed in addition to routine CC and MLO views. Current mammographic images were evaluated by either a [employer] M-Vu or a [employer] ImageChecker CAD(computer aided detection system). Comparison is made to exam dated 02/02/2012 mammogram - [facility]. The tissue of both breasts [...] dense breast tissue.Umang Valdez M.D. rb/:12/31/2018 15:50:34 Florist Supplies Salesperson: Larissa Sanon MM, [facility] Mammographyletter sent: BIRADS 1-2 Normal Mammogram BI-RADS: 1 Negative
--- NOTE | 2022-04-23 18:38 | ER ---
[facility] Name: Dionne Robledo Age: 56 yrs Sex: Female : 1965 Arrival Date: 04/23/2022 Time: 13:39 Bed 19 Private MD: Diagnosis: Constipation Presentation: 04/23 14:04 Chief complaint: Patient states: I have been constipated for the past 3-4 days - ld1 yesterday I took a stool softener and used an enema. I am able to pass loose stool but not regular bowel movement. Pt feels like she has a blockage. Coronavirus screen: At this time, the client does not indicate any symptoms associated with coronavirus-19. Ebola Screen: No symptoms or risks identified at this time. Initial Sepsis Screen: Does the patient meet any 2 criteria? No. Patient's initial sepsis screen is negative. Does the patient have a suspected source of infection? No. Patient's initial sepsis screen is negative. Risk Assessment: Do you want to hurt yourself or someone else? Patient reports no desire to harm self or others. Onset of symptoms was April 23, 2022. 14:04 Method Of Arrival: Ambulatory ld1 14:04 Acuity: ANDRÉS 3 ld1 Triage Assessment: 14:05 General: Appears in no apparent distress. comfortable, Behavior is calm, cooperative, ld1 appropriate for age. Pain: Denies pain. EENT: No signs and/or symptoms were reported regarding the EENT system. Neuro: Level of Consciousness is awake, alert, obeys commands, Oriented to person, place, time, situation. Cardiovascular: Capillary refill < 3 seconds Patient's skin is warm and dry. Respiratory: Airway is patent Respiratory effort is even, unlabored. GI: Abdomen is round non-distended, Reports constipation, cramping. Historical: - Allergies: 14:05 Codeine; ld1 - PMHx: 14:05 stroke; ld1 - PSHx: 14:05 Cholecystectomy; ld1 - Immunization history:: Adult Immunizations up to date, Client reports receiving the 2nd dose of the Covid vaccine. - Social history:: Smoking status: Patient reports the use of cigarette tobacco products, smokes one pack cigarettes per day. Patient/guardian denies using alcohol. Screenin:20 Abuse screen: Denies threats or abuse. Denies injuries from another. jh6 14:20 Nutritional screening: No deficits noted. Tuberculosis screening: No symptoms or risk 6 factors identified. Fall Risk None identified. Assessment: 14:20 General: Appears in no apparent distress. uncomfortable, Behavior is calm, cooperative. jh6 14:20 General: PT STATES THAT SHE HAS BEEN CONSTIPATED FOR THE LAST 2 DAYS. THAT SHE HAS jh6 TRIED OTC STOOL SOFTENERS BUT NOT HELPING AND FEELS LIKE THERE IS A BALL OF STOOL IN HER RECTUM. Pain: Complains of pain in gluteal cleft Pain currently is 5 out of 10 on a pain scale. Quality of pain is described as pressure, Pain began 1 day ago. Is continuous. 14:20 GI: Bowel sounds present X 4 quads. present in abdomen diffusely Abd is soft X 4 quads jh6 Abd is non tender X 4 quads. 15:30 Reassessment: No changes from previously documented assessment. Patient and/or family 6 updated on plan of care and expected duration. Pain level reassessed. 16:30 General: PT ABLE TO DRINK PRUNE JUICE APPOSED TO FURTHER DISIMPACTION . jh6 17:17 Reassessment: PT AHS BEEN ABLE TO HAVE SEVERAL SMALL BM WITHOUT INCREASED PAIN. 6 Vital Signs: 14:04 BP 129 / 76; Pulse 71; Resp 18; Temp 98.6(TE); Pulse Ox 100% ; Weight 74.84 kg; Height ld1 5 ft. 3 in. (160.02 cm); Pain 0/10; 15:30 BP 118 / 64; Pulse 77; Resp 18; Pulse Ox 100% ; Pain 4/10; jh6 17:00 BP 122 / 70; Pulse 72; Resp 18; Pain 3/10; jh6 14:04 Body Mass Index 29.23 (74.84 kg, 160.02 cm) ld1 ED Course: 13:39 Patient arrived in ED. am2 13:44 Fabian Allison MD is Attending Physician. kdr 14:05 Triage completed. ld1 14:05 Arm band placed on right wrist. ld1 14:20 Camila Richardson, JAHAIRA is Primary Nurse. jh6 14:45 Bed in low position. Call light in reach. Side rails up X 1. jh6 15:40 MD AT BEDSIDE FOR RECTAL DISIMPACTION WAS ABLE TO LOOSEN STOOL BALL IN HOPES THAT PT jh6 WILL BE ABLE TO PASS ON HER OWN, PT TOLERATED. 18:49 IV discontinued, intact, bleeding controlled, No redness/swelling at site. Pressure jh6 dressing applied. Administered Medications: No medications were administered Outcome: 18:37 Discharge ordered by . kdr 18:49 Discharged to home ambulatory. jh6 18:49 Condition: good 18:49 Discharge instructions given to patient, family, Instructed on discharge instructions, Demonstrated understanding of instructions, follow-up care, medications, Prescriptions given X 2. 18:50 Patient left the ED. 6 Signatures: Fabian Allison MD MD kdr Moreno, Amanda am2 Dibbern, Lauren RN RN ld1 Camila Richardson RN RN 6 Corrections: (The following items were deleted from the chart) 14:06 14:05 Allergies: No Known Allergies; ld1 ld1 14:06 14:05 PSHx: Cholecystectomy; ld1 ld1
--- NOTE | 2022-04-23 18:38 | EDPHYS ---
Physician Documentation [facility] Name: Dionne Robledo Age: 56 yrs Sex: Female : 1965 Arrival Date: 04/23/2022 Time: 13:39 Bed 19 Private MD: ED Physician Fabian Allison HPI: 04/23 18:42 This 56 yrs old Female presents to ER via Ambulatory with complaints of kdr Constipation. 18:42 Last week the patient feels like she has had difficulty having a bowel movement. She kdr has not had this before. She has changed her diet recently which may have lead to this situation. Onset: The symptoms/episode began/occurred gradually, 1 week(s) ago. Severity of symptoms: At their worst the symptoms were mild. The patient has not experienced similar symptoms in the past. The patient has not recently seen a physician. Historical: - Allergies: 14:05 Codeine; ld1 - PMHx: 14:05 stroke; ld1 - PSHx: 14:05 Cholecystectomy; ld1 - Immunization history:: Adult Immunizations up to date, Client reports receiving the 2nd dose of the Covid vaccine. - Social history:: Smoking status: Patient reports the use of cigarette tobacco products, smokes one pack cigarettes per day. Patient/guardian denies using alcohol. ROS: 18:42 Constitutional: Negative for fever, chills, and weight loss, Eyes: Negative for injury, kdr pain, redness, and discharge, Neck: Negative for injury, pain, and swelling, Cardiovascular: Negative for chest pain, palpitations, and edema, Respiratory: Negative for shortness of breath, cough, wheezing, and pleuritic chest pain, Back: Negative for injury and pain, : Negative for injury, bleeding, discharge, and swelling, MS/Extremity: Negative for injury and deformity, Skin: Negative for injury, rash, and discoloration, Neuro: Negative for headache, weakness, numbness, tingling, and seizure activity. Psych: Negative for depression, anxiety, suicide ideation, homicidal ideation, and hallucinations, Allergy/Immunology: Negative for hives, rash, and allergies, Endocrine: Negative for neck swelling, polydipsia, polyuria, polyphagia, and marked weight changes, Hematologic/Lymphatic: Negative for swollen nodes, abnormal bleeding, and unusual bruising. 18:42 Abdomen/GI: Positive for abdominal pain, constipation. Exam: 18:42 Constitutional: This is a well developed, well nourished patient who is awake, alert, kdr and in no acute distress. Head/Face: Normocephalic, atraumatic. Eyes: Pupils equal round and reactive to light, extra-ocular motions intact. Lids and lashes normal. Conjunctiva and sclera are non-icteric and not injected. Cornea within normal limits. Periorbital areas with no swelling, redness, or edema. Neck: Trachea midline, no thyromegaly or masses palpated, and no cervical lymphadenopathy. Supple, full range of motion without nuchal rigidity, or vertebral point tenderness. No Meningismus. Chest/axilla: Normal chest wall appearance and motion. Nontender with no deformity. No lesions are appreciated. Cardiovascular: Regular rate and rhythm with a normal S1 and S2. No gallops, murmurs, or rubs. Normal PMI, no JVD. No pulse deficits. Respiratory: Lungs have equal breath sounds bilaterally, clear to auscultation and percussion. No rales, rhonchi or wheezes noted. No increased work of breathing, no retractions or nasal flaring. Back: No spinal tenderness. No costovertebral tenderness. Full range of motion. Skin: Warm, dry with normal turgor. Normal color with no rashes, no lesions, and no evidence of cellulitis. MS/ Extremity: Pulses equal, no cyanosis. Neurovascular intact. Full, normal range of motion. Neuro: Awake and alert, GCS 15, oriented to person, place, time, and situation. Cranial nerves II-XII grossly intact. Motor strength 5/5 in all extremities. Sensory grossly intact. Cerebellar exam normal. Normal gait. Psych: Awake, alert, with orientation to person, place and time. Behavior, mood, and affect are within normal limits. 18:42 Abdomen/GI: Inspection: abdomen appears normal, Rectal exam: rectal tone normal, fecal impaction, that is mild, that is moderate, the exam is chaperoned by the nurse. Vital Signs: 14:04 BP 129 / 76; Pulse 71; Resp 18; Temp 98.6(TE); Pulse Ox 100% ; Weight 74.84 kg; Height ld1 5 ft. 3 in. (160.02 cm); Pain 0/10; 15:30 BP 118 / 64; Pulse 77; Resp 18; Pulse Ox 100% ; Pain 4/10; jh6 17:00 BP 122 / 70; Pulse 72; Resp 18; Pain 3/10; jh6 14:04 Body Mass Index 29.23 (74.84 kg, 160.02 cm) ld1 Procedures: 18:42 Fecal disimpaction: digital disimpaction was performed, with a moderate amount of stool kdr expressed. The patient tolerated the intervention well, X 2. MDM: 18:37 Patient medically screened. kdr 18:42 Data reviewed: vital signs, nurses notes, lab test result(s), radiologic studies. kdr Counseling: I had a detailed discussion with the patient and/or guardian regarding: the historical points, exam findings, and any diagnostic results supporting the discharge/admit diagnosis, lab results, radiology results, the need for outpatient follow up. 04/23 15:53 [place] [facility]: Administer laxative solution kdr Administered Medications: No medications were administered Disposition Summary: 04/23/22 18:37 Discharge Ordered Location: Home kdr Problem: new kdr Symptoms: have improved kdr Condition: Stable kdr Diagnosis - Constipation kdr Followup: kdr - With: Private Physician - When: 2 - 3 days - Reason: If symptoms return, Further diagnostic work-up, Recheck today's complaints, Continuance of care, Re-evaluation by your physician Discharge Instructions: - Discharge Summary Sheet kdr - Constipation, Adult, [id number] kdr Forms: - Medication Reconciliation Form kdr - Thank You Letter kdr Prescriptions: - magnesium citrate - take 1 bottle by ORAL route every 6-8 hours As needed; 4 bottle; Refills: 0, kdr Product Selection Permitted - Lactulose 10 gram/15 mL Oral Solution - take 30 milliliters by ORAL route once daily; 300 milliliter; Refills: 0, kdr Product Selection Permitted Signatures: Fabian Allison MD MD kdr Vanessa Chavarria RN RN ld1 Corrections: (The following items were deleted from the chart) 14:06 14:05 Allergies: No Known Allergies; ld1 ld1 14:06 14:05 PSHx: Cholecystectomy; ld1 ld1
[2022-04-23 18:59] VITALS: TEMP 98.6; O2SAT 100
[2022-04-23 19:03] VITALS: BP 122/70
== END 2022-04-23 18:50 | disposition home or self-care (01) ==
LOC: ER 13:35
DX: K59.00 Constipation, unspecified (principal); Z88.6 Allergy status to analgesic agent; F17.210 Nicotine dependence, cigarettes, uncomplicated
CPT/HCPCS: 99282

== ENCOUNTER 2023-03-27 21:32 | Emergency (ER) | payer OTHER ==
--- OUTSIDE RECORDS SUMMARY | 2023-03-27 21:53 | XMS REPORT | Continuity of Care Document ---
:1965 Author Organization [facility] t Address 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 00:00: [place] infection infection 00 [facility] No known No known Disease Unive rs active active ity of problems problems [facility] Pain in Pain in Diagnosis Active Commo n joint of joint of [facility] right knee right knee [facility] Primary Primary Diagnosis Active Commo n osteoarthr osteoarthr Sp xochitl itis of itis of - [facility] right knee right knee [facility] Patellar Patellar Diagnosis Active Com mon tendinitis tendinitis Sp xochitl of right of right - [facility] knee knee [facility] Allergies, Adverse Reactions, Alerts Allergy Allergy Status Severity Reaction(s) Onset Inactive Treating Comm ents Source Name Type Date Date Clinician Codeine Propensi Active 2021-11 Phosphat ty to 12-17 e adverse 00:00: reaction 00 to drug [place] - Propensi Active Intraven ty to 05-22 ous adverse 00:00: reaction 00 to drug Codeine Propensi Active ty to 6-29 adverse 00:00: reaction 00 to drug CODEINE DRUG Active N/V Univers INGREDI 6- ity of 00:00: [place] [facility] Codeine Propensi Active Nausea Univers ty to and/or 05-16 ity of adverse Vomiting 00:00: [place] reaction 00 [facility] codeine Adverse Active Info Not Common [facility] Social History Social Habit Start Date Stop Date Quantity Comments Source Tobacco use and 2019-08-22 2019-08-22 Current user Univers ity of exposure 00:00:00 00:00:00 [facility] Alcohol intake 2019-08-22 2019-08-22 Current drinker Unive rsity of 00:00:00 00:00:[address] [facility] (finding) [place] Sex [birth year] Universit y of 00:00:00 00:00:00 [facility] Smoking Status Start Date Stop Date Source Current some day smoker 2019-08-22 00:00:00 [facility] Medications Ordered Filled Start Stop Current Ordering Indication Dosage Frequency Signature Comments Components Source Medication Medication Date Date Medication? Clinician (SIG) Name Name TAKE 1 TAB 0 No 100 Q12H X 5 1-23 DAYS 00:00: 00 TAKE 1 TAB 0 No 100 Q12H X 5 1-23 DAYS 00:00: 00 Dose No Unknown -06 00:00: 00 TAKE 10 ML 2021-11 No BY MOUTH -22 EVERY 6 TO 00:00: 8 HOURS 00 NEEDED FOR COUGH Dose 2021-11 No Unknown - 00:00: 00 Dose 2021-11 No Unknown - 00:00: 00 Dose 2021-11 No Unknown - 00:00: 00 Dose 2021-11 No Unknown - 00:00: 00 TAKE 1 2021- No TABLET BY 1-21 MOUTH EVERY 00:00: 8 HOURS 00 NEEDED FOR NAUSEA AND VOMITING cromolyn 4 No 12% % eye drops 8- 00:00: 00 cromolyn 4 2022-0 No 12% % eye drops 8- 00:00: 00 cromolyn 4 2-0 No 12% % eye drops 07-06 00:00: 00 cromolyn 4 2-0 No 12% % eye drops 07-06 00:00: 00 cromolyn 4 2-0 No 12% % eye drops 07-06 00:00: 00 &lt 2022-0 No 20 8- 00:00: 00 Dose 2022-0 No Unknown 8 00:00: 00 &lt 2022-0 No 20 8- 00:00: 00 Dose 2022-0 No Unknown 06-28 00:00: 00 &lt 2022-0 No 20 06-28 00:00: 00 Dose 2-0 No Unknown 06-28 00:00: 00 &lt 2022-0 No 20 06-28 00:00: 00 Dose 2-0 No Unknown 06-28 00:00: 00 &lt 2022-0 No 20 06-28 00:00: 00 Dose 2-0 No Unknown 06-28 00:00: 00 Dose 2022-0 No Unknown 06-27 00:00: 00 Dose 2022-0 No Unknown 06-27 00:00: 00 &lt 2022-0 No 20 06-27 00:00: 00 cromolyn 4 2-0 No 12% % eye drops 06-27 00:00: 00 Dose 2-0 No Unknown 06-27 00:00: 00 Dose 2-0 No Unknown 06-27 00:00: 00 Dose 2022-0 No Unknown 06-27 00:00: 00 &lt 2022-0 No 20 06-27 00:00: 00 cromolyn 4 2-0 No 12% % eye drops 06-27 00:00: 00 Dose 2-0 No Unknown 06-27 00:00: 00 Dose 2-0 No Unknown 06-27 00:00: 00 Dose 2-0 No Unknown 06-27 00:00: 00 &lt 2022-0 No 20 06-27 00:00: 00 cromolyn 4 2-0 No 12% % eye drops 06-27 00:00: 00 Dose 2-0 No Unknown 06-27 00:00: 00 Dose 2022-0 No Unknown 06-27 00:00: 00 Dose 2022-0 No Unknown 06-27 00:00: 00 &lt 2022-0 No 20 06-27 00:00: 00 cromolyn 4 2022-0 No 12% % eye drops 06-27 00:00: 00 Dose 2022-0 No Unknown 06-27 00:00: 00 Dose 2022-0 No Unknown 06-27 00:00: 00 Dose 2022-0 No Unknown 06-27 00:00: 00 &lt 2022-0 No 20 06-27 00:00: 00 cromolyn 4 2022-0 No 12% % eye drops 06-27 00:00: 00 Dose 2022-0 No Unknown 06-27 00:00: 00 &lt 2022-0 No 6 00:00: 00 TAKE 1 2022-0 No TABLET BY 6-27 MOUTH TWICE 00:00: DAILY 00 &lt 2022-0 No 6-27 00:00: 00 &lt 2022-0 No 6-27 00:00: 00 &lt 2022-0 No 6-27 00:00: 00 TAKE 1 2022-0 No TABLET BY 6-27 MOUTH TWICE 00:00: DAILY 00 &lt 2022-0 No 6-27 00:00: 00 &lt 2022-0 No 6-27 00:00: 00 &lt 2022-0 No 6-27 00:00: 00 TAKE 1 2022-0 No TABLET BY 6-27 MOUTH TWICE 00:00: DAILY 00 &lt 2022-0 No 6-27 00:00: 00 &lt 2022-0 No 6-27 00:00: 00 TAKE 1 2022-0 No TABLET BY 6-27 MOUTH TWICE 00:00: DAILY 00 &lt 2022-0 No 6-27 00:00: 00 &lt 2022-0 No 6-27 00:00: 00 &lt 2022-0 No 6-27 00:00: 00 &lt 2022-0 No 6-27 00:00: 00 TAKE 1 2022-0 No TABLET BY 6-27 MOUTH TWICE 00:00: DAILY 00 &lt 2022-0 No 6-27 00:00: 00 &lt 2022-0 No 6-27 00:00: 00 &lt 2022-0 No 6-27 00:00: 00 TAKE 1 2022-0 No TABLET BY 6- MOUTH TWICE 00:00: DAILY 00 &lt 2022-0 No 05-22 00:00: 00 &lt 2022-0 No 05-22 00:00: 00 TAKE 1 2022-0 No TABLET BY 6-09 MOUTH TWICE 00:00: DAILY 00 Dose 2022-0 No Unknown 05-04 00:00: 00 Dose 2022-0 No Unknown 05-04 00:00: 00 TAKE 1 2022-0 No TABLET BY 6-09 MOUTH TWICE 00:00: DAILY 00 Dose 2022-0 No Unknown 05-04 00:00: 00 Dose 2022-0 No Unknown 05-04 00:00: 00 TAKE 1 2-0 No TABLET BY 6- MOUTH TWICE 00:00: DAILY 00 Dose 2022-0 No Unknown 05-04 00:00: 00 Dose 2022-0 No Unknown 05-04 00:00: 00 TAKE 1 2-0 No TABLET BY 6- MOUTH TWICE 00:00: DAILY 00 Dose 2022-0 No Unknown 05-04 00:00: 00 Dose 2022-0 No Unknown 05-04 00:00: 00 TAKE 1 2-0 No TABLET BY 6-09 MOUTH TWICE 00:00: DAILY 00 Dose 2022-0 No Unknown 05-04 00:00: 00 Dose 2022-0 No Unknown 05-04 00:00: 00 TAKE 1 2022-0 No TABLET BY 6-09 MOUTH TWICE 00:00: DAILY 00 Dose 2022-0 No Unknown 05-04 00:00: 00 Dose 2022-0 No Unknown 05-04 00:00: 00 pantoprazol 2022-0 No 1mg e 40 mg 6-01 tablet,vesta 00:00: yed release 00 amoxicillin 2022-0 No 2mg 500 mg 6-01 tablet 00:00: 00 metronidazo 2022-0 No 1mg le 500 mg 6-01 tablet 00:00: 00 clarithromy 2022-0 No 1mg jayshree 500 mg 6-01 tablet 00:00: 00 pantoprazol 2022-0 No 1mg e 40 mg 6-01 tablet,vesta 00:00: yed release 00 amoxicillin 2022-0 No 2mg 500 mg 6-01 tablet 00:00: 00 metronidazo 2022-0 No 1mg le 500 mg 6-01 tablet 00:00: 00 clarithromy 2022-0 No 1mg jayshree 500 mg 6-01 tablet 00:00: 00 pantoprazol 2022-0 No 1mg e 40 mg 6-01 tablet,vesta 00:00: yed release 00 amoxicillin 2022-0 No 2mg 500 mg 6-01 tablet 00:00: 00 metronidazo 2022-0 No 1mg le 500 mg 6-01 tablet 00:00: 00 clarithromy 2022-0 No 1mg jayshree 500 mg 6-01 tablet 00:00: 00 pantoprazol 2022-0 No 1mg e 40 mg 6-01 tablet,vesta 00:00: yed release 00 amoxicillin 2022-0 No 2mg 500 mg 6-01 tablet 00:00: 00 metronidazo 2022-0 No 1mg le 500 mg 6-01 tablet 00:00: 00 clarithromy 2022-0 No 1mg jayshree 500 mg 6-01 tablet 00:00: 00 pantoprazol 2022-0 No 1mg e 40 mg 6-01 tablet,vesta 00:00: yed release 00 amoxicillin 2022-0 No 2mg 500 mg 6-01 tablet 00:00: 00 metronidazo 2022-0 No 1mg le 500 mg 6-01 tablet 00:00: 00 clarithromy 2022-0 No 1mg jayshree 500 mg 6-01 tablet 00:00: 00 pantoprazol 2022-0 No 1mg e 40 mg 6-01 tablet,vesta 00:00: yed release 00 amoxicillin 2022-0 No 2mg 500 mg 6-01 tablet 00:00: 00 metronidazo 2022-0 No 1mg le 500 mg 6-01 tablet 00:00: 00 clarithromy 2022-0 No 1mg jayshree 500 mg 6-01 tablet 00:00: 00 sucralfate 2022-0 No 1gram 1 gram 5-26 tablet 00:00: 00 Dose 2022-0 No Unknown 5-26 00:00: 00 Dose 2022-0 No Unknown 5-26 00:00: 00 Dose 2022-0 No Unknown 5-26 00:00: 00 Dose 2022-0 No Unknown 5-26 00:00: 00 sucralfate 2022-0 No 1gram 1 gram 5-26 tablet 00:00: 00 Dose 2-0 No Unknown 5- 00:00: 00 Dose 2-0 No Unknown 5- 00:00: 00 Dose 2-0 No Unknown 5- 00:00: 00 Dose 2-0 No Unknown 5- 00:00: 00 sucralfate 2-0 No 1gram 1 gram 5-26 tablet 00:00: 00 Dose 2-0 No Unknown 5- 00:00: 00 Dose 2-0 No Unknown 5- 00:00: 00 Dose 2-0 No Unknown 5- 00:00: 00 Dose 2-0 No Unknown 5- 00:00: 00 sucralfate 2-0 No 1gram 1 gram 5-26 tablet 00:00: 00 Dose 2-0 No Unknown 5- 00:00: 00 Dose 2-0 No Unknown 5- 00:00: 00 Dose 2-0 No Unknown 5- 00:00: 00 Dose 2-0 No Unknown 5- 00:00: 00 sucralfate 2-0 No 1gram 1 gram 5-26 tablet 00:00: 00 Dose 2-0 No Unknown 5- 00:00: 00 Dose 2-0 No Unknown 5- 00:00: 00 Dose 2-0 No Unknown 5- 00:00: 00 Dose 2-0 No Unknown 5- 00:00: 00 sucralfate 2-0 No 1gram 1 gram 5-26 tablet 00:00: 00 Dose 2-0 No Unknown 5- 00:00: 00 Dose 2-0 No Unknown 5- 00:00: 00 Dose 2-0 No Unknown 5- 00:00: 00 Dose 2-0 No Unknown 5-26 00:00: 00 Dose 2-0 No Unknown 5-16 00:00: 00 Dose 2-0 No Unknown 5-16 00:00: 00 Dose 2-0 No Unknown 5-16 00:00: 00 Dose 2-0 No Unknown 5-16 00:00: 00 Dose 2-0 No Unknown 5-16 00:00: 00 Dose 2-0 No Unknown 5-16 00:00: 00 Dose 2-0 No Unknown 5-16 00:00: 00 Dose 2022-0 No Unknown 5-16 00:00: 00 Dose 2022-0 No Unknown 5-16 00:00: 00 Dose 2022-0 No Unknown 5-16 00:00: 00 Dose 2022-0 No Unknown 5-16 00:00: 00 Dose 2022-0 No Unknown 5-16 00:00: 00 Dose 2022-0 No Unknown 5-13 00:00: 00 Dose 2022-0 No Unknown 5-13 00:00: 00 Dose 2022-0 No Unknown 5-13 00:00: 00 Dose 2022-0 No Unknown 5-13 00:00: 00 Dose 2022-0 No Unknown 5-13 00:00: 00 Dose 2022-0 No Unknown 5-13 00:00: 00 Dose 2022-0 No Unknown 5-13 00:00: 00 Dose 2022-0 No Unknown 5-13 00:00: 00 Dose 2022-0 No Unknown 5-13 00:00: 00 Dose 2022-0 No Unknown 5-13 00:00: 00 Dose 2022-0 No Unknown 5-13 00:00: 00 Dose 2022-0 No Unknown 5-13 00:00: 00 Dose 2022-0 No Unknown 5-13 00:00: 00 Dose 2022-0 No Unknown 5-13 00:00: 00 Dose 2022-0 No Unknown 5-13 00:00: 00 Dose 2022-0 No Unknown 5-13 00:00: 00 Dose 2022-0 No Unknown 5-13 00:00: 00 Dose 2022-0 No Unknown 5-13 00:00: 00 Dose 2022-0 No Unknown 5-13 00:00: 00 Dose 2022-0 No Unknown 5-13 00:00: 00 Dose 2022-0 No Unknown 5-13 00:00: 00 Dose 2022-0 No Unknown 5-13 00:00: 00 Dose 2022-0 No Unknown 5-13 00:00: 00 Dose 2022-0 No Unknown 5-13 00:00: 00 Dose 2022-0 No Unknown 5-13 00:00: 00 Dose 2022-0 No Unknown 5-13 00:00: 00 Dose 2022-0 No Unknown 5-13 00:00: 00 Dose 2022-0 No Unknown 5-13 00:00: 00 Dose 2022-0 No Unknown 5-13 00:00: 00 Dose 2022-0 No Unknown 5-13 00:00: 00 Dose 2022-0 No Unknown 5-13 00:00: 00 Dose 2022-0 No Unknown 5-13 00:00: 00 Dose 2022-0 No Unknown 5-13 00:00: 00 Dose 2022-0 No Unknown 5-13 00:00: 00 Dose 2022-0 No Unknown 5-13 00:00: 00 Dose 2022-0 No Unknown 5-13 00:00: 00 Dose 2022-0 No Unknown 5-13 00:00: 00 Dose 2022-0 No Unknown 5-13 00:00: 00 Dose 2022-0 No Unknown 5-13 00:00: 00 Dose 2022-0 No Unknown 5-13 00:00: 00 Dose 2022-0 No Unknown 5-13 00:00: 00 Dose 2022-0 No Unknown 5-13 00:00: 00 Dose 2022-0 No Unknown 5-13 00:00: 00 Dose 2022-0 No Unknown 5-13 00:00: 00 Dose 2022-0 No Unknown 5-13 00:00: 00 Dose 2022-0 No Unknown 5-13 00:00: 00 Dose 2022-0 No Unknown 5-13 00:00: 00 Dose 2022-0 No Unknown 5-13 00:00: 00 Dose 2022-0 No Unknown 5-13 00:00: 00 Dose 2022-0 No Unknown 5-13 00:00: 00 Dose 2022-0 No Unknown 5-13 00:00: 00 Dose 2022-0 No Unknown 5-13 00:00: 00 Dose 2022-0 No Unknown 5-13 00:00: 00 Dose 2022-0 No Unknown 5-13 00:00: 00 Dose 2022-0 No Unknown 5-13 00:00: 00 Dose 2022-0 No Unknown 5-13 00:00: 00 Dose 2022-0 No Unknown 5-13 00:00: 00 Dose 2022-0 No Unknown 5-13 00:00: 00 Dose 2022-0 No Unknown 5-13 00:00: 00 Dose 2022-0 No Unknown 5-13 00:00: 00 Dose 2022-0 No Unknown 5-13 00:00: 00 Dose 2022-0 No Unknown 5-13 00:00: 00 Dose 2022-0 No Unknown 5-13 00:00: 00 Dose 2022-0 No Unknown 5-13 00:00: 00 Dose 2022-0 No Unknown 5-13 00:00: 00 Dose 2022-0 No Unknown 5-13 00:00: 00 Dose 2022-0 No Unknown 5-13 00:00: 00 Dose 2022-0 No Unknown 5-13 00:00: 00 Dose 2022-0 No Unknown 5-13 00:00: 00 Dose 2022-0 No Unknown 5-13 00:00: 00 Dose 2022-0 No Unknown 5-13 00:00: 00 Dose 2022-0 No Unknown 5-13 00:00: 00 Dose 2022-0 No Unknown 5-13 00:00: 00 Dose 2022-0 No Unknown 5-13 00:00: 00 Dose 2022-0 No Unknown 5-13 00:00: 00 Dose 2022-0 No Unknown 5-13 00:00: 00 Dose 2022-0 No Unknown 5-13 00:00: 00 Dose 2022-0 No Unknown 5-13 00:00: 00 Dose 2022-0 No Unknown 5-13 00:00: 00 Dose 2022-0 No Unknown 5-13 00:00: 00 Dose 2022-0 No Unknown 5-13 00:00: 00 Dose 2022-0 No Unknown 5-13 00:00: 00 Dose 2022-0 No Unknown 5-13 00:00: 00 Dose 2022-0 No Unknown 5-13 00:00: 00 Dose 2022-0 No Unknown 5-13 00:00: 00 Dose 2022-0 No Unknown 5-13 00:00: 00 Dose 2022-0 No Unknown 5-13 00:00: 00 Dose 2022-0 No Unknown 5-13 00:00: 00 Dose 2022-0 No Unknown 5-13 00:00: 00 Dose 2022-0 No Unknown 5-13 00:00: 00 Dose 2022-0 No Unknown 5-13 00:00: 00 Dose 2022-0 No Unknown 5-13 00:00: 00 Dose 2022-0 No Unknown 5-13 00:00: 00 Dose 2022-0 No Unknown 5-13 00:00: 00 Dose 2022-0 No Unknown 5-13 00:00: 00 Dose 2022-0 No Unknown 5-13 00:00: 00 Dose 2022-0 No Unknown 5-13 00:00: 00 Dose 2022-0 No Unknown 5-13 00:00: 00 Dose 2022-0 No Unknown 5-13 00:00: 00 Dose 2022-0 No Unknown 5-13 00:00: 00 Dose 2022-0 No Unknown 5-13 00:00: 00 Dose 2022-0 No Unknown 5-13 00:00: 00 Dose 2022-0 No Unknown 5-13 00:00: 00 Dose 2022-0 No Unknown 5-13 00:00: 00 Dose 2022-0 No Unknown 5-13 00:00: 00 Dose 2022-0 No Unknown 5-13 00:00: 00 Dose 2022-0 No Unknown 5-13 00:00: 00 Dose 2022-0 No Unknown 5-13 00:00: 00 Dose 2022-0 No Unknown 5-13 00:00: 00 Dose 2022-0 No Unknown 5-13 00:00: 00 Dose 2022-0 No Unknown 5-13 00:00: 00 Dose 2022-0 No Unknown 5-13 00:00: 00 Dose 2022-0 No Unknown 5-13 00:00: 00 Dose 2022-0 No Unknown 5-13 00:00: 00 Dose 2022-0 No Unknown 5-13 00:00: 00 Dose 2022-0 No Unknown 5-13 00:00: 00 Dose 2022-0 No Unknown 5-13 00:00: 00 Dose 2022-0 No Unknown 5-13 00:00: 00 Dose 2022-0 No Unknown 5-13 00:00: 00 Dose 2022-0 No Unknown 5-13 00:00: 00 Dose 2022-0 No Unknown 5-13 00:00: 00 Dose 2022-0 No Unknown 5-13 00:00: 00 Dose 2022-0 No Unknown 5-13 00:00: 00 Dose 2022-0 No Unknown 5-13 00:00: 00 Dose 2022-0 No Unknown 5-13 00:00: 00 Dose 2022-0 No Unknown 5-13 00:00: 00 Dose 2022-0 No Unknown 5-13 00:00: 00 Dose 2022-0 No Unknown 5-13 00:00: 00 Dose 2022-0 No Unknown 5-13 00:00: 00 Dose 2022-0 No Unknown 5-13 00:00: 00 Dose 2022-0 No Unknown 5-13 00:00: 00 Dose 2022-0 No Unknown 5-13 00:00: 00 Dose 2022-0 No Unknown 5-13 00:00: 00 Dose 2022-0 No Unknown 5-13 00:00: 00 Dose 2022-0 No Unknown 5-13 00:00: 00 Dose 2022-0 No Unknown 5-13 00:00: 00 Dose 2022-0 No Unknown 5-13 00:00: 00 Dose 2022-0 No Unknown 5-13 00:00: 00 Dose 2022-0 No Unknown 5-13 00:00: 00 Dose 2022-0 No Unknown 5-13 00:00: 00 Dose 2022-0 No Unknown 5-13 00:00: 00 Dose 2022-0 No Unknown 5-13 00:00: 00 Dose 2022-0 No Unknown 5-13 00:00: 00 Dose 2022-0 No Unknown 5-13 00:00: 00 Dose 2022-0 No Unknown 5-13 00:00: 00 Dose 2022-0 No Unknown 5-13 00:00: 00 Dose 2022-0 No Unknown 5-13 00:00: 00 Dose 2022-0 No Unknown 5-13 00:00: 00 Dose 2022-0 No Unknown 5-13 00:00: 00 Dose 2022-0 No Unknown 5-13 00:00: 00 Dose 2022-0 No Unknown 5-13 00:00: 00 Dose 2022-0 No Unknown 5-13 00:00: 00 Dose 2022-0 No Unknown 5-13 00:00: 00 Dose 2022-0 No Unknown 5-13 00:00: 00 Dose 2022-0 No Unknown 5-13 00:00: 00 Dose 2022-0 No Unknown 5-13 00:00: 00 Dose 2022-0 No Unknown 5-13 00:00: 00 Dose 2022-0 No Unknown 5-13 00:00: 00 Dose 2022-0 No Unknown 5-13 00:00: 00 Dose 2022-0 No Unknown 5-13 00:00: 00 Dose 2022-0 No Unknown 5-13 00:00: 00 Dose 2022-0 No Unknown 5-13 00:00: 00 Dose 2022-0 No Unknown 5-13 00:00: 00 Dose 2022-0 No Unknown 5-13 00:00: 00 Dose 2022-0 No Unknown 5-13 00:00: 00 Dose 2022-0 No Unknown 5-13 00:00: 00 Dose 2022-0 No Unknown 5-13 00:00: 00 Dose 2022-0 No Unknown 5-13 00:00: 00 Dose 2022-0 No Unknown 5-13 00:00: 00 Dose 2022-0 No Unknown 5-13 00:00: 00 Dose 2022-0 No Unknown 5-13 00:00: 00 Dose 2022-0 No Unknown 5-13 00:00: 00 Dose 2022-0 No Unknown 5-13 00:00: 00 Dose 2022-0 No Unknown 5-13 00:00: 00 Dose 2022-0 No Unknown 5-13 00:00: 00 Dose 2022-0 No Unknown 5-13 00:00: 00 Dose 2022-0 No Unknown 5-13 00:00: 00 Dose 2022-0 No Unknown 5-13 00:00: 00 Dose 2022-0 No Unknown 5-13 00:00: 00 Dose 2022-0 No Unknown 5-13 00:00: 00 Dose 2022-0 No Unknown 5-13 00:00: 00 Dose 2022-0 No Unknown 5-13 00:00: 00 Dose 2022-0 No Unknown 5-13 00:00: 00 Dose 2022-0 No Unknown 5-13 00:00: 00 Dose 2022-0 No Unknown 5-13 00:00: 00 Dose 2022-0 No Unknown 5-13 00:00: 00 Dose 2022-0 No Unknown 5-13 00:00: 00 Dose 2022-0 No Unknown 5-13 00:00: 00 Dose 2022-0 No Unknown 5-13 00:00: 00 Dose 2022-0 No Unknown 5-13 00:00: 00 Dose 2022-0 No Unknown 5-13 00:00: 00 Dose 2022-0 No Unknown 5-13 00:00: 00 Dose 2022-0 No Unknown 5-13 00:00: 00 Dose 2022-0 No Unknown 5-13 00:00: 00 Dose 2022-0 No Unknown 5-13 00:00: 00 Dose 2022-0 No Unknown 5-13 00:00: 00 Dose 2022-0 No Unknown 5-13 00:00: 00 Dose 2022-0 No Unknown 5-13 00:00: 00 Dose 2022-0 No Unknown 5-13 00:00: 00 Dose 2022-0 No Unknown 5-13 00:00: 00 Dose 2022-0 No Unknown 5-13 00:00: 00 Dose 2022-0 No Unknown 5-13 00:00: 00 Dose 2022-0 No Unknown 5-13 00:00: 00 Dose 2022-0 No Unknown 5-13 00:00: 00 Dose 2022-0 No Unknown 5-13 00:00: 00 Dose 2022-0 No Unknown 5-13 00:00: 00 Dose 2022-0 No Unknown 5-13 00:00: 00 Dose 2022-0 No Unknown 5-13 00:00: 00 Dose 2022-0 No Unknown 5-13 00:00: 00 Dose 2022-0 No Unknown 5-13 00:00: 00 Dose 2022-0 No Unknown 5-13 00:00: 00 Dose 2022-0 No Unknown 5-13 00:00: 00 Dose 2022-0 No Unknown 5-13 00:00: 00 Dose 2022-0 No Unknown 5-13 00:00: 00 Dose 2022-0 No Unknown 5-13 00:00: 00 Dose 2022-0 No Unknown 5-13 00:00: 00 Dose 2022-0 No Unknown 5-13 00:00: 00 Dose 2022-0 No Unknown 5-13 00:00: 00 Dose 2022-0 No Unknown 5-13 00:00: 00 Dose 2022-0 No Unknown 5-13 00:00: 00 Dose 2022-0 No Unknown 5-13 00:00: 00 Dose 2022-0 No Unknown 5-13 00:00: 00 Dose 2022-0 No Unknown 5-13 00:00: 00 Dose 2022-0 No Unknown 5-13 00:00: 00 Dose 2022-0 No Unknown 5-13 00:00: 00 Dose 2022-0 No Unknown 5-13 00:00: 00 Dose 2022-0 No Unknown 5-13 00:00: 00 Dose 2022-0 No Unknown 5-13 00:00: 00 Dose 2022-0 No Unknown 5-13 00:00: 00 Dose 2022-0 No Unknown 5-13 00:00: 00 Dose 2022-0 No Unknown 5-13 00:00: 00 Dose 2022-0 No Unknown 5-13 00:00: 00 Dose 2022-0 No Unknown 5-13 00:00: 00 Dose 2022-0 No Unknown 5-13 00:00: 00 Dose 2022-0 No Unknown 5-13 00:00: 00 Dose 2022-0 No Unknown 5-13 00:00: 00 Dose 2022-0 No Unknown 5-13 00:00: 00 Dose 2022-0 No Unknown 5-13 00:00: 00 Dose 2022-0 No Unknown 5-13 00:00: 00 Dose 2022-0 No Unknown 5-13 00:00: 00 Dose 2022-0 No Unknown 5-13 00:00: 00 Dose 2022-0 No Unknown 5-13 00:00: 00 Dose 2022-0 No Unknown 5-13 00:00: 00 Dose 2022-0 No Unknown 5-13 00:00: 00 Dose 2022-0 No Unknown 5-13 00:00: 00 Dose 2022-0 No Unknown 5-13 00:00: 00 Dose 2022-0 No Unknown 5-13 00:00: 00 Dose 2022-0 No Unknown 5-13 00:00: 00 Dose 2022-0 No Unknown 5-13 00:00: 00 Dose 2022-0 No Unknown 5-13 00:00: 00 Dose 2022-0 No Unknown 5-13 00:00: 00 Dose 2022-0 No Unknown 5-13 00:00: 00 Dose 2022-0 No Unknown 5-13 00:00: 00 Dose 2022-0 No Unknown 5-13 00:00: 00 Dose 2022-0 No Unknown 5-13 00:00: 00 Dose 2022-0 No Unknown 5-13 00:00: 00 Dose 2022-0 No Unknown 5-13 00:00: 00 Dose 2022-0 No Unknown 5-13 00:00: 00 Dose 2022-0 No Unknown 5-13 00:00: 00 Dose 2022-0 No Unknown 5-13 00:00: 00 Dose 2022-0 No Unknown 5-13 00:00: 00 Dose 2022-0 No Unknown 5-13 00:00: 00 Dose 2022-0 No Unknown 5-13 00:00: 00 Dose 2022-0 No Unknown 5-13 00:00: 00 Dose 2022-0 No Unknown 5-13 00:00: 00 Dose 2022-0 No Unknown 5-13 00:00: 00 Dose 2022-0 No Unknown 5-13 00:00: 00 Dose 2022-0 No Unknown 5-13 00:00: 00 Dose 2022-0 No Unknown 5-13 00:00: 00 Dose 2022-0 No Unknown 5-13 00:00: 00 Dose 2022-0 No Unknown 5-13 00:00: 00 Dose 2022-0 No Unknown 5-13 00:00: 00 Dose 2022-0 No Unknown 5-13 00:00: 00 Dose 2022-0 No Unknown 5-13 00:00: 00 Dose 2022-0 No Unknown 5-13 00:00: 00 Dose 2022-0 No Unknown 5-13 00:00: 00 Dose 2022-0 No Unknown 5-13 00:00: 00 Dose 2022-0 No Unknown 5-13 00:00: 00 Dose 2022-0 No Unknown 5-13 00:00: 00 Dose 2022-0 No Unknown 5-13 00:00: 00 Dose 2022-0 No Unknown 5-13 00:00: 00 Dose 2022-0 No Unknown 5-13 00:00: 00 Dose 2022-0 No Unknown 5-13 00:00: 00 Dose 2022-0 No Unknown 5-13 00:00: 00 Dose 2022-0 No Unknown 5-13 00:00: 00 Dose 2022-0 No Unknown 5-13 00:00: 00 Dose 2022-0 No Unknown 5-13 00:00: 00 Dose 2022-0 No Unknown 5-13 00:00: 00 Dose 2022-0 No Unknown 5-13 00:00: 00 Dose 2022-0 No Unknown 5-13 00:00: 00 Dose 2022-0 No Unknown 5-13 00:00: 00 Dose 2022-0 No Unknown 5-13 00:00: 00 Dose 2022-0 No Unknown 5-13 00:00: 00 Dose 2022-0 No Unknown 5-13 00:00: 00 Dose 2022-0 No Unknown 5-13 00:00: 00 Dose 2022-0 No Unknown 5-13 00:00: 00 Dose 2022-0 No Unknown 5-13 00:00: 00 Dose 2022-0 No Unknown 5-13 00:00: 00 Dose 2022-0 No Unknown 5-13 00:00: 00 Dose 2022-0 No Unknown 5-13 00:00: 00 Dose 2022-0 No Unknown 5-13 00:00: 00 Dose 2022-0 No Unknown 5-13 00:00: 00 Dose 2022-0 No Unknown 5-13 00:00: 00 Dose 2022-0 No Unknown 5-13 00:00: 00 Dose 2022-0 No Unknown 5-13 00:00: 00 Dose 2022-0 No Unknown 5-13 00:00: 00 Dose 2022-0 No Unknown 5-13 00:00: 00 Dose 2022-0 No Unknown 5-13 00:00: 00 Dose 2022-0 No Unknown 5-13 00:00: 00 Dose 2022-0 No Unknown 5-13 00:00: 00 Dose 2022-0 No Unknown 5-13 00:00: 00 Dose 2022-0 No Unknown 5-13 00:00: 00 Dose 2022-0 No Unknown 5-13 00:00: 00 Dose 2022-0 No Unknown 5-13 00:00: 00 Dose 2022-0 No Unknown 5-13 00:00: 00 Dose 2022-0 No Unknown 5-13 00:00: 00 Dose 2022-0 No Unknown 5-13 00:00: 00 Dose 2022-0 No Unknown 5-13 00:00: 00 Dose 2022-0 No Unknown 5-13 00:00: 00 Dose 2022-0 No Unknown 5-13 00:00: 00 Dose 2022-0 No Unknown 5-13 00:00: 00 Dose 2022-0 No Unknown 5-13 00:00: 00 Dose 2022-0 No Unknown 5-13 00:00: 00 Dose 2022-0 No Unknown 5-13 00:00: 00 Dose 2022-0 No Unknown 5-13 00:00: 00 Dose 2022-0 No Unknown 5-13 00:00: 00 Dose 2022-0 No Unknown 5-13 00:00: 00 Dose 2022-0 No Unknown 5-13 00:00: 00 Dose 2022-0 No Unknown 5-13 00:00: 00 Dose 2022-0 No Unknown 5-13 00:00: 00 Dose 2022-0 No Unknown 5-13 00:00: 00 Dose 2022-0 No Unknown 5-13 00:00: 00 Dose 2022-0 No Unknown 5-13 00:00: 00 Dose 2022-0 No Unknown 5-13 00:00: 00 Dose 2022-0 No Unknown 5-13 00:00: 00 Dose 2022-0 No Unknown 5-13 00:00: 00 Dose 2022-0 No Unknown 5-13 00:00: 00 Dose 2022-0 No Unknown 5-13 00:00: 00 Dose 2022-0 No Unknown 5-13 00:00: 00 Dose 2022-0 No Unknown 5-13 00:00: 00 Dose 2022-0 No Unknown 5-13 00:00: 00 Dose 2022-0 No Unknown 5-13 00:00: 00 Dose 2022-0 No Unknown 5-13 00:00: 00 Dose 2022-0 No Unknown 5-13 00:00: 00 Dose 2022-0 No Unknown 5-13 00:00: 00 Dose 2022-0 No Unknown 5-13 00:00: 00 Dose 2022-0 No Unknown 5-13 00:00: 00 Dose 2022-0 No Unknown 5-13 00:00: 00 Dose 2022-0 No Unknown 5-13 00:00: 00 Dose 2022-0 No Unknown 5-13 00:00: 00 Dose 2022-0 No Unknown 5-13 00:00: 00 Dose 2022-0 No Unknown 5-13 00:00: 00 Dose 2022-0 No Unknown 5-13 00:00: 00 Dose 2022-0 No Unknown 5-13 00:00: 00 Dose 2022-0 No Unknown 5-13 00:00: 00 Dose 2022-0 No Unknown 5-13 00:00: 00 Dose 2022-0 No Unknown 5-13 00:00: 00 Dose 2022-0 No Unknown 5-13 00:00: 00 Dose 2022-0 No Unknown 5-13 00:00: 00 Dose 2022-0 No Unknown 5-13 00:00: 00 Dose 2022-0 No Unknown 5-13 00:00: 00 Dose 2022-0 No Unknown 5-13 00:00: 00 Dose 2022-0 No Unknown 5-13 00:00: 00 Dose 2022-0 No Unknown 5-13 00:00: 00 Dose 2022-0 No Unknown 5-13 00:00: 00 Dose 2022-0 No Unknown 5-13 00:00: 00 Dose 2022-0 No Unknown 5-13 00:00: 00 Dose 2022-0 No Unknown 5-13 00:00: 00 Dose 2022-0 No Unknown 5-13 00:00: 00 Dose 2022-0 No Unknown 5-13 00:00: 00 Dose 2022-0 No Unknown 5-13 00:00: 00 Dose 2022-0 No Unknown 5-13 00:00: 00 Dose 2022-0 No Unknown 5-13 00:00: 00 Dose 2022-0 No Unknown 5-13 00:00: 00 Dose 2022-0 No Unknown 5-13 00:00: 00 Dose 2022-0 No Unknown 5-13 00:00: 00 Dose 2022-0 No Unknown 5-13 00:00: 00 Dose 2022-0 No Unknown 5-13 00:00: 00 Dose 2022-0 No Unknown 5-13 00:00: 00 Dose 2022-0 No Unknown 5-13 00:00: 00 Dose 2022-0 No Unknown 5-13 00:00: 00 Dose 2022-0 No Unknown 5-13 00:00: 00 Dose 2022-0 No Unknown 5-13 00:00: 00 Dose 2022-0 No Unknown 5-13 00:00: 00 Dose 2022-0 No Unknown 5-13 00:00: 00 Dose 2022-0 No Unknown 5-13 00:00: 00 Dose 2022-0 No Unknown 5-13 00:00: 00 Dose 2022-0 No Unknown 5-13 00:00: 00 Dose 2022-0 No Unknown 5-13 00:00: 00 Dose 2022-0 No Unknown 5-13 00:00: 00 Dose 2022-0 No Unknown 5-13 00:00: 00 Dose 2022-0 No Unknown 5-13 00:00: 00 Dose 2022-0 No Unknown 5-13 00:00: 00 Dose 2022-0 No Unknown 5-13 00:00: 00 Dose 2022-0 No Unknown 5-13 00:00: 00 Dose 2022-0 No Unknown 5-13 00:00: 00 Dose 2022-0 No Unknown 5-13 00:00: 00 Dose 2022-0 No Unknown 5-13 00:00: 00 Dose 2022-0 No Unknown 5-13 00:00: 00 Dose 2022-0 No Unknown 5-13 00:00: 00 Dose 2022-0 No Unknown 5-13 00:00: 00 Dose 2022-0 No Unknown 5-13 00:00: 00 Dose 2022-0 No Unknown 5-13 00:00: 00 Dose 2022-0 No Unknown 5-13 00:00: 00 Dose 2022-0 No Unknown 5-13 00:00: 00 Dose 2022-0 No Unknown 5-13 00:00: 00 Dose 2022-0 No Unknown 5-13 00:00: 00 Dose 2022-0 No Unknown 5-13 00:00: 00 Dose 2022-0 No Unknown 5-13 00:00: 00 Dose 2022-0 No Unknown 5-13 00:00: 00 Dose 2022-0 No Unknown 5-13 00:00: 00 Dose 2022-0 No Unknown 5-13 00:00: 00 Dose 2022-0 No Unknown 5-13 00:00: 00 Dose 2022-0 No Unknown 5-13 00:00: 00 Dose 2022-0 No Unknown 5-13 00:00: 00 Dose 2022-0 No Unknown 5-13 00:00: 00 Dose 2022-0 No Unknown 5-13 00:00: 00 Dose 2022-0 No Unknown 5-13 00:00: 00 Dose 2022-0 No Unknown 5-13 00:00: 00 Dose 2022-0 No Unknown 5-13 00:00: 00 Dose 2022-0 No Unknown 5-13 00:00: 00 Dose 2022-0 No Unknown 5-13 00:00: 00 Dose 2022-0 No Unknown 5-13 00:00: 00 Dose 2022-0 No Unknown 5-13 00:00: 00 Dose 2022-0 No Unknown 5-13 00:00: 00 Dose 2022-0 No Unknown 5-13 00:00: 00 Dose 2022-0 No Unknown 5-13 00:00: 00 Dose 2022-0 No Unknown 5-13 00:00: 00 Dose 2022-0 No Unknown 5-13 00:00: 00 Dose 2022-0 No Unknown 5-13 00:00: 00 Dose 2022-0 No Unknown 5-13 00:00: 00 Dose 2022-0 No Unknown 5-13 00:00: 00 Dose 2022-0 No Unknown 5-13 00:00: 00 Dose 2022-0 No Unknown 5-13 00:00: 00 Dose 2022-0 No Unknown 5-13 00:00: 00 Dose 2022-0 No Unknown 5-13 00:00: 00 Dose 2022-0 No Unknown 5-13 00:00: 00 Dose 2022-0 No Unknown 5-13 00:00: 00 Dose 2022-0 No Unknown 5-13 00:00: 00 Dose 2022-0 No Unknown 5-13 00:00: 00 Dose 2022-0 No Unknown 5-13 00:00: 00 Dose 2022-0 No Unknown 5-13 00:00: 00 Dose 2022-0 No Unknown 5-13 00:00: 00 Dose 2022-0 No Unknown 5-13 00:00: 00 Dose 2022-0 No Unknown 5-13 00:00: 00 Dose 2022-0 No Unknown 5-13 00:00: 00 Dose 2022-0 No Unknown 5-13 00:00: 00 Dose 2022-0 No Unknown 5-13 00:00: 00 Dose 2022-0 No Unknown 5-13 00:00: 00 Dose 2022-0 No Unknown 5-13 00:00: 00 Dose 2022-0 No Unknown 5-13 00:00: 00 Dose 2022-0 No Unknown 5-13 00:00: 00 Dose 2022-0 No Unknown 5-13 00:00: 00 Dose 2022-0 No Unknown 5-13 00:00: 00 Dose 2022-0 No Unknown 5-13 00:00: 00 Dose 2022-0 No Unknown 5-13 00:00: 00 Dose 2022-0 No Unknown 5-13 00:00: 00 Dose 2022-0 No Unknown 5-13 00:00: 00 Dose 2022-0 No Unknown 5-13 00:00: 00 Dose 2022-0 No Unknown 5-13 00:00: 00 Dose 2022-0 No Unknown 5-13 00:00: 00 Dose 2022-0 No Unknown 5-13 00:00: 00 Dose 2022-0 No Unknown 5-13 00:00: 00 Dose 2022-0 No Unknown 5-13 00:00: 00 Dose 2022-0 No Unknown 5-13 00:00: 00 Dose 2022-0 No Unknown 5-13 00:00: 00 Dose 2022-0 No Unknown 5-13 00:00: 00 Dose 2022-0 No Unknown 5-13 00:00: 00 Dose 2022-0 No Unknown 5-13 00:00: 00 Dose 2022-0 No Unknown 5-13 00:00: 00 Dose 2022-0 No Unknown 5-13 00:00: 00 Dose 2022-0 No Unknown 5-13 00:00: 00 Dose 2022-0 No Unknown 5-13 00:00: 00 Dose 2022-0 No Unknown 5-13 00:00: 00 Dose 2022-0 No Unknown 5-13 00:00: 00 Dose 2022-0 No Unknown 5-13 00:00: 00 Dose 2022-0 No Unknown 5-13 00:00: 00 Dose 2022-0 No Unknown 5-13 00:00: 00 Dose 2022-0 No Unknown 5-13 00:00: 00 Dose 2022-0 No Unknown 5-13 00:00: 00 Dose 2022-0 No Unknown 5-13 00:00: 00 Dose 2022-0 No Unknown 5-13 00:00: 00 Dose 2022-0 No Unknown 5-13 00:00: 00 Dose 2022-0 No Unknown 5-13 00:00: 00 Dose 2022-0 No Unknown 5-13 00:00: 00 Dose 2022-0 No Unknown 5-13 00:00: 00 Dose 2022-0 No Unknown 5-13 00:00: 00 Dose 2022-0 No Unknown 5-13 00:00: 00 Dose 2022-0 No Unknown 5-13 00:00: 00 Dose 2022-0 No Unknown 5-13 00:00: 00 Dose 2022-0 No Unknown 5-13 00:00: 00 Dose 2022-0 No Unknown 5-13 00:00: 00 Dose 2022-0 No Unknown 5-13 00:00: 00 Dose 2022-0 No Unknown 5-13 00:00: 00 Dose 2022-0 No Unknown 5-13 00:00: 00 Dose 2022-0 No Unknown 5-13 00:00: 00 Dose 2022-0 No Unknown 5-13 00:00: 00 Dose 2022-0 No Unknown 5-13 00:00: 00 Dose 2022-0 No Unknown 5-13 00:00: 00 Dose 2022-0 No Unknown 5-13 00:00: 00 Dose 2022-0 No Unknown 5-13 00:00: 00 Dose 2022-0 No Unknown 5-13 00:00: 00 Dose 2022-0 No Unknown 5-13 00:00: 00 Dose 2022-0 No Unknown 5-13 00:00: 00 Dose 2022-0 No Unknown 5-13 00:00: 00 Dose 2022-0 No Unknown 5-13 00:00: 00 Dose 2022-0 No Unknown 5-13 00:00: 00 Dose 2022-0 No Unknown 5-13 00:00: 00 Dose 2022-0 No Unknown 5-13 00:00: 00 Dose 2022-0 No Unknown 5-13 00:00: 00 Dose 2022-0 No Unknown 5-13 00:00: 00 Dose 2022-0 No Unknown 5-13 00:00: 00 Dose 2022-0 No Unknown 5-13 00:00: 00 Dose 2022-0 No Unknown 5-13 00:00: 00 Dose 2022-0 No Unknown 5-13 00:00: 00 Dose 2022-0 No Unknown 5-13 00:00: 00 Dose 2022-0 No Unknown 5-13 00:00: 00 Dose 2022-0 No Unknown 5-13 00:00: 00 Dose 2022-0 No Unknown 5-13 00:00: 00 Dose 2022-0 No Unknown 5-13 00:00: 00 Dose 2022-0 No Unknown 5-13 00:00: 00 Dose 2022-0 No Unknown 5-13 00:00: 00 Dose 2022-0 No Unknown 5-13 00:00: 00 Dose 2022-0 No Unknown 5-13 00:00: 00 Dose 2022-0 No Unknown 5-13 00:00: 00 Dose 2022-0 No Unknown 5-13 00:00: 00 Dose 2022-0 No Unknown 5-13 00:00: 00 Dose 2022-0 No Unknown 5-13 00:00: 00 Dose 2022-0 No Unknown 5-13 00:00: 00 Dose 2022-0 No Unknown 5-13 00:00: 00 Dose 2022-0 No Unknown 5-13 00:00: 00 Dose 2022-0 No Unknown 5-13 00:00: 00 Dose 2022-0 No Unknown 5-13 00:00: 00 Dose 2022-0 No Unknown 5-13 00:00: 00 Dose 2022-0 No Unknown 5-13 00:00: 00 Dose 2022-0 No Unknown 5-13 00:00: 00 Dose 2022-0 No Unknown 5-13 00:00: 00 Dose 2022-0 No Unknown 5-13 00:00: 00 Dose 2022-0 No Unknown 5-13 00:00: 00 Dose 2022-0 No Unknown 5-13 00:00: 00 Dose 2022-0 No Unknown 5-13 00:00: 00 Dose 2022-0 No Unknown 5-13 00:00: 00 Dose 2022-0 No Unknown 5-13 00:00: 00 Dose 2022-0 No Unknown 5-13 00:00: 00 Dose 2022-0 No Unknown 5-13 00:00: 00 Dose 2022-0 No Unknown 5-13 00:00: 00 Dose 2022-0 No Unknown 5-13 00:00: 00 Dose 2022-0 No Unknown 5-13 00:00: 00 Dose 2022-0 No Unknown 5-13 00:00: 00 Dose 2022-0 No Unknown 5-13 00:00: 00 Dose 2022-0 No Unknown 5-13 00:00: 00 Dose 2022-0 No Unknown 5-13 00:00: 00 Dose 2022-0 No Unknown 5-13 00:00: 00 Dose 2022-0 No Unknown 5-13 00:00: 00 Dose 2022-0 No Unknown 5-13 00:00: 00 Dose 2022-0 No Unknown 5-13 00:00: 00 Dose 2022-0 No Unknown 5-13 00:00: 00 Dose 2022-0 No Unknown 5-13 00:00: 00 Dose 2022-0 No Unknown 5-13 00:00: 00 Dose 2022-0 No Unknown 5-13 00:00: 00 Dose 2022-0 No Unknown 5-13 00:00: 00 Dose 2022-0 No Unknown 5-13 00:00: 00 Dose 2022-0 No Unknown 5-13 00:00: 00 Dose 2022-0 No Unknown 5-13 00:00: 00 Dose 2022-0 No Unknown 5-13 00:00: 00 Dose 2022-0 No Unknown 5-13 00:00: 00 Dose 2022-0 No Unknown 5-13 00:00: 00 Dose 2022-0 No Unknown 5-13 00:00: 00 Dose 2022-0 No Unknown 5-13 00:00: 00 Dose 2022-0 No Unknown 5-13 00:00: 00 Dose 2022-0 No Unknown 5-13 00:00: 00 Dose 2022-0 No Unknown 5-13 00:00: 00 Dose 2022-0 No Unknown 5-13 00:00: 00 Dose 2022-0 No Unknown 5-13 00:00: 00 Dose 2022-0 No Unknown 5-13 00:00: 00 Dose 2022-0 No Unknown 5-13 00:00: 00 Dose 2022-0 No Unknown 5-13 00:00: 00 Dose 2022-0 No Unknown 5-13 00:00: 00 Dose 2022-0 No Unknown 5-13 00:00: 00 Dose 2022-0 No Unknown 5-13 00:00: 00 Dose 2022-0 No Unknown 5-13 00:00: 00 Dose 2022-0 No Unknown 5-13 00:00: 00 Dose 2022-0 No Unknown 5-13 00:00: 00 Dose 2022-0 No Unknown 5-13 00:00: 00 Dose 2022-0 No Unknown 5-13 00:00: 00 Dose 2022-0 No Unknown 5-13 00:00: 00 Dose 2022-0 No Unknown 5-13 00:00: 00 Dose 2022-0 No Unknown 5-13 00:00: 00 Dose 2022-0 No Unknown 5-13 00:00: 00 Dose 2022-0 No Unknown 5-13 00:00: 00 Dose 2022-0 No Unknown 5-13 00:00: 00 Dose 2022-0 No Unknown 5-13 00:00: 00 Dose 2022-0 No Unknown 5-13 00:00: 00 Dose 2022-0 No Unknown 5-13 00:00: 00 Dose 2022-0 No Unknown 5-13 00:00: 00 Dose 2022-0 No Unknown 5-13 00:00: 00 Dose 2022-0 No Unknown 5-13 00:00: 00 Dose 2022-0 No Unknown 5-13 00:00: 00 Dose 2022-0 No Unknown 5-13 00:00: 00 Dose 2022-0 No Unknown 5-13 00:00: 00 Dose 2022-0 No Unknown 5-13 00:00: 00 Dose 2022-0 No Unknown 5-13 00:00: 00 Dose 2022-0 No Unknown 5-13 00:00: 00 Dose 2022-0 No Unknown 5-13 00:00: 00 Dose 2022-0 No Unknown 5-13 00:00: 00 Dose 2022-0 No Unknown 5-13 00:00: 00 Dose 2022-0 No Unknown 5-13 00:00: 00 Dose 2022-0 No Unknown 5-13 00:00: 00 Dose 2022-0 No Unknown 5-13 00:00: 00 Dose 2022-0 No Unknown 5-13 00:00: 00 Dose 2022-0 No Unknown 5-13 00:00: 00 Dose 2022-0 No Unknown 5-13 00:00: 00 Dose 2022-0 No Unknown 5-13 00:00: 00 Dose 2022-0 No Unknown 5-13 00:00: 00 Dose 2022-0 No Unknown 5-13 00:00: 00 Dose 2022-0 No Unknown 5-13 00:00: 00 Dose 2022-0 No Unknown 5-13 00:00: 00 Dose 2022-0 No Unknown 5-13 00:00: 00 Dose 2022-0 No Unknown 5-13 00:00: 00 Dose 2022-0 No Unknown 5-13 00:00: 00 Dose 2022-0 No Unknown 5-13 00:00: 00 Dose 2022-0 No Unknown 5-13 00:00: 00 Dose 2022-0 No Unknown 5-13 00:00: 00 Dose 2022-0 No Unknown 5-13 00:00: 00 Dose 2022-0 No Unknown 5-13 00:00: 00 Dose 2022-0 No Unknown 5-13 00:00: 00 Dose 2022-0 No Unknown 5-13 00:00: 00 Dose 2022-0 No Unknown 5-13 00:00: 00 Dose 2022-0 No Unknown 5-13 00:00: 00 Dose 2022-0 No Unknown 5-13 00:00: 00 Dose 2022-0 No Unknown 5-13 00:00: 00 Dose 2022-0 No Unknown 5-13 00:00: 00 Dose 2022-0 No Unknown 5-13 00:00: 00 Dose 2022-0 No Unknown 5-13 00:00: 00 Dose 2022-0 No Unknown 5-13 00:00: 00 Dose 2022-0 No Unknown 5-13 00:00: 00 Dose 2022-0 No Unknown 5-13 00:00: 00 Dose 2022-0 No Unknown 5-13 00:00: 00 Dose 2022-0 No Unknown 5-13 00:00: 00 Dose 2022-0 No Unknown 5-13 00:00: 00 Dose 2022-0 No Unknown 5-13 00:00: 00 Dose 2022-0 No Unknown 5-13 00:00: 00 Dose 2022-0 No Unknown 5-13 00:00: 00 Dose 2022-0 No Unknown 5-13 00:00: 00 Dose 2022-0 No Unknown 5-13 00:00: 00 Dose 2022-0 No Unknown 5-13 00:00: 00 Dose 2022-0 No Unknown 5-13 00:00: 00 Dose 2022-0 No Unknown 5-13 00:00: 00 Dose 2022-0 No Unknown 5-13 00:00: 00 Dose 2022-0 No Unknown 5-13 00:00: 00 Dose 2022-0 No Unknown 5-13 00:00: 00 Dose 2022-0 No Unknown 5-13 00:00: 00 Dose 2022-0 No Unknown 5-13 00:00: 00 Dose 2022-0 No Unknown 5-13 00:00: 00 Dose 2022-0 No Unknown 5-13 00:00: 00 Dose 2022-0 No Unknown 5-13 00:00: 00 Dose 2022-0 No Unknown 5-13 00:00: 00 Dose 2022-0 No Unknown 5-13 00:00: 00 Dose 2022-0 No Unknown 5-13 00:00: 00 Dose 2022-0 No Unknown 5-13 00:00: 00 Dose 2022-0 No Unknown 5-13 00:00: 00 Dose 2022-0 No Unknown 5-13 00:00: 00 Dose 2022-0 No Unknown 5-13 00:00: 00 Dose 2022-0 No Unknown 5-13 00:00: 00 Dose 2022-0 No Unknown 5-13 00:00: 00 Dose 2022-0 No Unknown 5-13 00:00: 00 Dose 2022-0 No Unknown 5-13 00:00: 00 Dose 2022-0 No Unknown 5-13 00:00: 00 Dose 2022-0 No Unknown 5-13 00:00: 00 Dose 2022-0 No Unknown 5-13 00:00: 00 Dose 2022-0 No Unknown 5-13 00:00: 00 Dose 2022-0 No Unknown 5-13 00:00: 00 Dose 2022-0 No Unknown 5-13 00:00: 00 Dose 2022-0 No Unknown 5-13 00:00: 00 Dose 2022-0 No Unknown 5-13 00:00: 00 Dose 2022-0 No Unknown 5-13 00:00: 00 Dose 2022-0 No Unknown 5-13 00:00: 00 Dose 2022-0 No Unknown 5-13 00:00: 00 Dose 2022-0 No Unknown 5-13 00:00: 00 Dose 2022-0 No Unknown 5-13 00:00: 00 Dose 2022-0 No Unknown 5-13 00:00: 00 Dose 2022-0 No Unknown 5-13 00:00: 00 Dose 2022-0 No Unknown 5-13 00:00: 00 Dose 2022-0 No Unknown 5-13 00:00: 00 Dose 2022-0 No Unknown 5-13 00:00: 00 Dose 2022-0 No Unknown 5-13 00:00: 00 Dose 2022-0 No Unknown 5-13 00:00: 00 Dose 2022-0 No Unknown 5-13 00:00: 00 Dose 2022-0 No Unknown 5-13 00:00: 00 Dose 2022-0 No Unknown 5-13 00:00: 00 Dose 2022-0 No Unknown 5-13 00:00: 00 Dose 2022-0 No Unknown 5-13 00:00: 00 Dose 2022-0 No Unknown 5-13 00:00: 00 Dose 2022-0 No Unknown 5-13 00:00: 00 Dose 2022-0 No Unknown 5-13 00:00: 00 Dose 2022-0 No Unknown 5-13 00:00: 00 Dose 2022-0 No Unknown 5-13 00:00: 00 Dose 2022-0 No Unknown 5-13 00:00: 00 Dose 2022-0 No Unknown 5-13 00:00: 00 Dose 2022-0 No Unknown 5-13 00:00: 00 Dose 2022-0 No Unknown 5-13 00:00: 00 Dose 2022-0 No Unknown 5-13 00:00: 00 Dose 2022-0 No Unknown 5-13 00:00: 00 Dose 2022-0 No Unknown 5-13 00:00: 00 Dose 2022-0 No Unknown 5-13 00:00: 00 Dose 2022-0 No Unknown 5-13 00:00: 00 Dose 2022-0 No Unknown 5-13 00:00: 00 Dose 2022-0 No Unknown 5-13 00:00: 00 Dose 2022-0 No Unknown 5-13 00:00: 00 Dose 2022-0 No Unknown 5-13 00:00: 00 Dose 2022-0 No Unknown 5-13 00:00: 00 Dose 2022-0 No Unknown 5-13 00:00: 00 Dose 2022-0 No Unknown 5-13 00:00: 00 Dose 2022-0 No Unknown 5-13 00:00: 00 Dose 2022-0 No Unknown 5-13 00:00: 00 Dose 2022-0 No Unknown 5-13 00:00: 00 Dose 2022-0 No Unknown 5-13 00:00: 00 Dose 2022-0 No Unknown 5-13 00:00: 00 Dose 2022-0 No Unknown 5-13 00:00: 00 Dose 2022-0 No Unknown 5-13 00:00: 00 Dose 2022-0 No Unknown 5-13 00:00: 00 Dose 2022-0 No Unknown 5-13 00:00: 00 Dose 2022-0 No Unknown 5-13 00:00: 00 Dose 2022-0 No Unknown 5-13 00:00: 00 Dose 2022-0 No Unknown 5-13 00:00: 00 Dose 2022-0 No Unknown 5-13 00:00: 00 Dose 2022-0 No Unknown 5-13 00:00: 00 Dose 2022-0 No Unknown 5-13 00:00: 00 Dose 2022-0 No Unknown 5-13 00:00: 00 Dose 2022-0 No Unknown 5-13 00:00: 00 Dose 2022-0 No Unknown 5-13 00:00: 00 Dose 2022-0 No Unknown 5-13 00:00: 00 Dose 2022-0 No Unknown 5-13 00:00: 00 Dose 2022-0 No Unknown 5-13 00:00: 00 Dose 2022-0 No Unknown 5-13 00:00: 00 Dose 2022-0 No Unknown 5-13 00:00: 00 Dose 2022-0 No Unknown 5-13 00:00: 00 Dose 2022-0 No Unknown 5-13 00:00: 00 Dose 2022-0 No Unknown 5-13 00:00: 00 Dose 2022-0 No Unknown 5-13 00:00: 00 Dose 2022-0 No Unknown 5-13 00:00: 00 Dose 2022-0 No Unknown 5-13 00:00: 00 Dose 2022-0 No Unknown 5-13 00:00: 00 Dose 2022-0 No Unknown 5-13 00:00: 00 Dose 2022-0 No Unknown 5-13 00:00: 00 Dose 2022-0 No Unknown 5-13 00:00: 00 Dose 2022-0 No Unknown 5-13 00:00: 00 Dose 2022-0 No Unknown 5-13 00:00: 00 Dose 2022-0 No Unknown 5-13 00:00: 00 Dose 2022-0 No Unknown 5-13 00:00: 00 Dose 2022-0 No Unknown 5-13 00:00: 00 Dose 2022-0 No Unknown 5-13 00:00: 00 Dose 2022-0 No Unknown 5-13 00:00: 00 Dose 2022-0 No Unknown 5-13 00:00: 00 Dose 2022-0 No Unknown 5-13 00:00: 00 Dose 2022-0 No Unknown 5-13 00:00: 00 Dose 2022-0 No Unknown 5-13 00:00: 00 Dose 2022-0 No Unknown 5-13 00:00: 00 Dose 2022-0 No Unknown 5-13 00:00: 00 Dose 2022-0 No Unknown 5-13 00:00: 00 Dose 2022-0 No Unknown 5-13 00:00: 00 Dose 2022-0 No Unknown 5-13 00:00: 00 Dose 2022-0 No Unknown 5-13 00:00: 00 Dose 2022-0 No Unknown 5-13 00:00: 00 Dose 2022-0 No Unknown 5-13 00:00: 00 Dose 2022-0 No Unknown 5-13 00:00: 00 Dose 2022-0 No Unknown 5-13 00:00: 00 Dose 2022-0 No Unknown 5-13 00:00: 00 Dose 2022-0 No Unknown 5-13 00:00: 00 Dose 2022-0 No Unknown 5-13 00:00: 00 Dose 2022-0 No Unknown 5-13 00:00: 00 Dose 2022-0 No Unknown 5-13 00:00: 00 Dose 2022-0 No Unknown 5-13 00:00: 00 Dose 2022-0 No Unknown 5-13 00:00: 00 Dose 2022-0 No Unknown 5-13 00:00: 00 Dose 2022-0 No Unknown 5-13 00:00: 00 Dose 2022-0 No Unknown 5-13 00:00: 00 Dose 2022-0 No Unknown 5-13 00:00: 00 Dose 2022-0 No Unknown 5-13 00:00: 00 Dose 2022-0 No Unknown 5-13 00:00: 00 Dose 2022-0 No Unknown 5-13 00:00: 00 Dose 2022-0 No Unknown 5-13 00:00: 00 Dose 2022-0 No Unknown 5-13 00:00: 00 Dose 2022-0 No Unknown 5-13 00:00: 00 Dose 2022-0 No Unknown 5-13 00:00: 00 Dose 2022-0 No Unknown 5-13 00:00: 00 Dose 2022-0 No Unknown 5-13 00:00: 00 Dose 2022-0 No Unknown 5-13 00:00: 00 Dose 2022-0 No Unknown 5-13 00:00: 00 Dose 2022-0 No Unknown 5-13 00:00: 00 Dose 2022-0 No Unknown 5-13 00:00: 00 Dose 2022-0 No Unknown 5-13 00:00: 00 Dose 2022-0 No Unknown 5-13 00:00: 00 Dose 2022-0 No Unknown 5-13 00:00: 00 Dose 2022-0 No Unknown 5-13 00:00: 00 Dose 2022-0 No Unknown 5-13 00:00: 00 Dose 2022-0 No Unknown 5-13 00:00: 00 Dose 2022-0 No Unknown 5-13 00:00: 00 Dose 2022-0 No Unknown 5-13 00:00: 00 Dose 2022-0 No Unknown 5-13 00:00: 00 Dose 2022-0 No Unknown 5-13 00:00: 00 Dose 2022-0 No Unknown 5-13 00:00: 00 Dose 2022-0 No Unknown 5-13 00:00: 00 Dose 2022-0 No Unknown 5-13 00:00: 00 Dose 2022-0 No Unknown 5-13 00:00: 00 Dose 2022-0 No Unknown 5-13 00:00: 00 Dose 2022-0 No Unknown 5-13 00:00: 00 Dose 2022-0 No Unknown 5-13 00:00: 00 Dose 2022-0 No Unknown 5-13 00:00: 00 Dose 2022-0 No Unknown 5-13 00:00: 00 Dose 2022-0 No Unknown 5-13 00:00: 00 Dose 2022-0 No Unknown 5-13 00:00: 00 Dose 2022-0 No Unknown 5-13 00:00: 00 Dose 2022-0 No Unknown 5-13 00:00: 00 Dose 2022-0 No Unknown 5-13 00:00: 00 Dose 2022-0 No Unknown 5-13 00:00: 00 Dose 2022-0 No Unknown 5-13 00:00: 00 Dose 2022-0 No Unknown 5-13 00:00: 00 Dose 2022-0 No Unknown 5-13 00:00: 00 Dose 2022-0 No Unknown 5-13 00:00: 00 Dose 2022-0 No Unknown 5-13 00:00: 00 Dose 2022-0 No Unknown 5-13 00:00: 00 Dose 2022-0 No Unknown 5-13 00:00: 00 Dose 2022-0 No Unknown 5-13 00:00: 00 Dose 2022-0 No Unknown 5-13 00:00: 00 Dose 2022-0 No Unknown 5-13 00:00: 00 Dose 2022-0 No Unknown 5-13 00:00: 00 Dose 2022-0 No Unknown 5-13 00:00: 00 Dose 2022-0 No Unknown 5-13 00:00: 00 Dose 2022-0 No Unknown 5-13 00:00: 00 Dose 2022-0 No Unknown 5-13 00:00: 00 Dose 2022-0 No Unknown 5-13 00:00: 00 Dose 2022-0 No Unknown 5-13 00:00: 00 Dose 2022-0 No Unknown 5-13 00:00: 00 Dose 2022-0 No Unknown 5-13 00:00: 00 Dose 2022-0 No Unknown 5-13 00:00: 00 Dose 2022-0 No Unknown 5-13 00:00: 00 Dose 2022-0 No Unknown 5-13 00:00: 00 Dose 2022-0 No Unknown 5-13 00:00: 00 Dose 2022-0 No Unknown 5-13 00:00: 00 Dose 2022-0 No Unknown 5-13 00:00: 00 Dose 2022-0 No Unknown 5-13 00:00: 00 Dose 2022-0 No Unknown 5-13 00:00: 00 Dose 2022-0 No Unknown 5-13 00:00: 00 Dose 2022-0 No Unknown 5-13 00:00: 00 Dose 2022-0 No Unknown 5-13 00:00: 00 Dose 2022-0 No Unknown 5-13 00:00: 00 Dose 2022-0 No Unknown 5-13 00:00: 00 Dose 2022-0 No Unknown 5-13 00:00: 00 Dose 2022-0 No Unknown 5-13 00:00: 00 Dose 2022-0 No Unknown 5-13 00:00: 00 Dose 2022-0 No Unknown 5-13 00:00: 00 Dose 2022-0 No Unknown 5-13 00:00: 00 Dose 2022-0 No Unknown 5-13 00:00: 00 Dose 2022-0 No Unknown 5-13 00:00: 00 Dose 2022-0 No Unknown 5-13 00:00: 00 Dose 2022-0 No Unknown 5-13 00:00: 00 Dose 2022-0 No Unknown 5-13 00:00: 00 Dose 2022-0 No Unknown 5-13 00:00: 00 Dose 2022-0 No Unknown 5-13 00:00: 00 Dose 2022-0 No Unknown 5-13 00:00: 00 Dose 2022-0 No Unknown 5-13 00:00: 00 Dose 2022-0 No Unknown 5-13 00:00: 00 Dose 2022-0 No Unknown 5-13 00:00: 00 Dose 2022-0 No Unknown 5-13 00:00: 00 Dose 2022-0 No Unknown 5-13 00:00: 00 Dose 2022-0 No Unknown 5-13 00:00: 00 Dose 2022-0 No Unknown 5-13 00:00: 00 Dose 2022-0 No Unknown 5-13 00:00: 00 Dose 2022-0 No Unknown 5-13 00:00: 00 Dose 2022-0 No Unknown 5-13 00:00: 00 Dose 2022-0 No Unknown 5-13 00:00: 00 Dose 2022-0 No Unknown 5-13 00:00: 00 Dose 2022-0 No Unknown 5-13 00:00: 00 Dose 2022-0 No Unknown 5-13 00:00: 00 Dose 2022-0 No Unknown 5-13 00:00: 00 Dose 2022-0 No Unknown 5-13 00:00: 00 Dose 2022-0 No Unknown 5-13 00:00: 00 Dose 2022-0 No Unknown 5-13 00:00: 00 Dose 2022-0 No Unknown 5-13 00:00: 00 Dose 2022-0 No Unknown 5-13 00:00: 00 Dose 2022-0 No Unknown 5-13 00:00: 00 Dose 2022-0 No Unknown 5-13 00:00: 00 Dose 2022-0 No Unknown 5-13 00:00: 00 Dose 2022-0 No Unknown 5-13 00:00: 00 Dose 2022-0 No Unknown 5-13 00:00: 00 Dose 2022-0 No Unknown 5-13 00:00: 00 Dose 2022-0 No Unknown 5-13 00:00: 00 Dose 2022-0 No Unknown 5-13 00:00: 00 Dose 2022-0 No Unknown 5-13 00:00: 00 Dose 2022-0 No Unknown 5-13 00:00: 00 Dose 2022-0 No Unknown 5-13 00:00: 00 Dose 2022-0 No Unknown 5-13 00:00: 00 Dose 2022-0 No Unknown 5-13 00:00: 00 Dose 2022-0 No Unknown 5-13 00:00: 00 Dose 2022-0 No Unknown 5-13 00:00: 00 Dose 2022-0 No Unknown 5-13 00:00: 00 Dose 2022-0 No Unknown 5-13 00:00: 00 Dose 2022-0 No Unknown 5-13 00:00: 00 Dose 2022-0 No Unknown 5-13 00:00: 00 Dose 2022-0 No Unknown 5-13 00:00: 00 Dose 2022-0 No Unknown 5-13 00:00: 00 Dose 2022-0 No Unknown 5-13 00:00: 00 Dose 2022-0 No Unknown 5-13 00:00: 00 Dose 2022-0 No Unknown 5-13 00:00: 00 Dose 2022-0 No Unknown 5-13 00:00: 00 Dose 2022-0 No Unknown 5-13 00:00: 00 Dose 2022-0 No Unknown 5-13 00:00: 00 Dose 2022-0 No Unknown 5-13 00:00: 00 Dose 2022-0 No Unknown 5-13 00:00: 00 Dose 2022-0 No Unknown 5-13 00:00: 00 Dose 2022-0 No Unknown 5-13 00:00: 00 Dose 2022-0 No Unknown 5-13 00:00: 00 Dose 2022-0 No Unknown 5-13 00:00: 00 Dose 2022-0 No Unknown 5-13 00:00: 00 Dose 2022-0 No Unknown 5-13 00:00: 00 Dose 2022-0 No Unknown 5-13 00:00: 00 Dose 2022-0 No Unknown 5-13 00:00: 00 amoxicillin 1-1 No 1mg 875 2-23 mg-potassiu 00:00: m 00 clavulanate 125 mg tablet Dose 1-1 No Unknown 2-23 00:00: 00 benzonatate 1-1 No 1mg 100 mg 2-23 capsule 00:00: 00 amoxicillin 1-1 No 1mg 875 2-23 mg-potassiu 00:00: m 00 clavulanate 125 mg tablet Dose 1-1 No Unknown 2-23 00:00: 00 benzonatate 1-1 No 1mg 100 mg 2-23 capsule 00:00: 00 amoxicillin 1-1 No 1mg 875 2-23 mg-potassiu 00:00: m 00 clavulanate 125 mg tablet Dose 2020-1 No Unknown 2-23 00:00: 00 benzonatate 2020- No 1mg 100 mg 2-23 capsule 00:00: 00 amoxicillin 2020- No 1mg 875 2-23 mg-potassiu 00:00: m 00 clavulanate 125 mg tablet Flonase 2020- No 1mcg/ac Allergy 2-23 tuation Relief 50 00:00: mcg/actuati 00 on nasal spray,suspe nsion amoxicillin 2020-11 No 1mg 875 2-23 mg-potassiu 00:00: m 00 clavulanate 125 mg tablet Flonase 2020-11 No 1mcg/ac Allergy 2-23 tuation Relief 50 00:00: mcg/actuati 00 on nasal spray,suspe nsion benzonatate 2020-11 No 1mg 100 mg 2-23 capsule 00:00: 00 benzonatate 2020- No 1mg 100 mg 2-23 capsule 00:00: 00 amoxicillin 2020- No 1mg 875 2-23 mg-potassiu 00:00: m 00 clavulanate 125 mg tablet Dose 2020- No Unknown 2-23 00:00: 00 benzonatate 2020- No 1mg 100 mg 2-23 capsule 00:00: 00 amoxicillin 2020-1 No 1mg 875 1-01 mg-potassiu 00:00: m 00 clavulanate 125 mg tablet amoxicillin 2020-1 No 1mg 875 1-01 mg-potassiu 00:00: m 00 clavulanate 125 mg tablet amoxicillin 2020-1 No 1mg 875 1-01 mg-potassiu 00:00: m 00 clavulanate 125 mg tablet amoxicillin 2020-1 No 1mg 875 1-01 mg-potassiu 00:00: m 00 clavulanate 125 mg tablet amoxicillin 2020-1 No 1mg 875 1-01 mg-potassiu 00:00: m 00 clavulanate 125 mg tablet amoxicillin 2020-1 No 1mg 875 1-01 mg-potassiu 00:00: m 00 clavulanate 125 mg tablet Tessalon 2020-1 No 1mg Perles 100 0-30 mg capsule 00:00: 00 Tessalon 2020-1 No 1mg Perles 100 0-30 mg capsule 00:00: 00 Tessalon 2020-1 No 1mg Perles 100 0-30 mg capsule 00:00: 00 Tessalon 2020-1 No 1mg Perles 100 0-30 mg capsule 00:00: 00 Tessalon 2020-1 No 1mg Perles 100 0-30 mg capsule 00:00: 00 Tessalon 2020-1 No 1mg Perles 100 0-30 mg capsule 00:00: 00 Zyrtec-D 5 2020-0 No 1mg mg-120 mg 8-04 tablet,exte 00:00: nded 00 release Flonase 2020-0 No 1mcg/ac Allergy 8-04 tuation Relief 50 00:00: mcg/actuati 00 on nasal spray,suspe nsion Zyrtec-D 5 2020-0 No 1mg mg-120 mg 8-04 tablet,exte 00:00: nded 00 release Flonase 2020-0 No 1mcg/ac Allergy 8-04 tuation Relief 50 00:00: mcg/actuati 00 on nasal spray,suspe nsion Zyrtec-D 5 2020-0 No 1mg mg-120 mg 8-04 tablet,exte 00:00: nded 00 release Flonase 2020-0 No 1mcg/ac Allergy 8-04 tuation Relief 50 00:00: mcg/actuati 00 on nasal spray,suspe nsion Zyrtec-D 5 2020-0 No 1mg mg-120 mg 8-04 tablet,exte 00:00: nded 00 release Flonase 2020-0 No 1mcg/ac Allergy 8-04 tuation Relief 50 00:00: mcg/actuati 00 on nasal spray,suspe nsion Zyrtec-D 5 2020-0 No 1mg mg-120 mg 8-04 tablet,exte 00:00: nded 00 release Flonase 1-0 No 1mcg/ac Allergy 8-04 tuation Relief 50 00:00: mcg/actuati 00 on nasal spray,suspe nsion Zyrtec-D 5 2020-0 No 1mg mg-120 mg 8- tablet,exte 00:00: nded 00 release Flonase 2020-0 No 1mcg/ac Allergy 06-29 tuation Relief 50 00:00: mcg/actuati 00 on nasal spray,suspe nsion Zofran 4 mg 1-0 No 1mg tablet 05-04 00:00: 00 Tessalon 1-0 No 1mg Perles 100 6-09 mg capsule 00:00: 00 Zofran 4 mg 1-0 No 1mg tablet 05-04 00:00: 00 Tessalon 1-0 No 1mg Perles 100 6-09 mg capsule 00:00: 00 Zofran 4 mg 1-0 No 1mg tablet 05-04 00:00: 00 Tessalon 1-0 No 1mg Perles 100 6-09 mg capsule 00:00: 00 Zofran 4 mg 1-0 No 1mg tablet 05-04 00:00: 00 Tessalon 1-0 No 1mg Perles 100 6-09 mg capsule 00:00: 00 Zofran 4 mg 1-0 No 1mg tablet 05-04 00:00: 00 Tessalon 1-0 No 1mg Perles 100 6-09 mg capsule 00:00: 00 Zofran 4 mg 1-0 No 1mg tablet 05-04 00:00: 00 Tessalon 1-0 No 1mg Perles 100 6-09 mg capsule 00:00: 00 prednisone 1-0 No mg 20 mg 5-31 tablet 00:00: 00 azithromyci 1-0 No mg n 250 mg 5-31 tablet 00:00: 00 Flonase 1-0 No 1mcg/ac Allergy -31 tuation Relief 50 00:00: mcg/actuati 00 on nasal spray,suspe nsion prednisone 1-0 No mg 20 mg 5-31 tablet 00:00: 00 azithromyci 2021-0 No mg n 250 mg 5-31 tablet 00:00: 00 Flonase 1-0 No 1mcg/ac Allergy 5-31 tuation Relief 50 00:00: mcg/actuati 00 on nasal spray,suspe nsion prednisone 1-0 No mg 20 mg 5-31 tablet 00:00: 00 azithromyci 2021-0 No mg n 250 mg 5-31 tablet 00:00: 00 Flonase 1-0 No 1mcg/ac Allergy 5-31 tuation Relief 50 00:00: mcg/actuati 00 on nasal spray,suspe nsion prednisone 1-0 No mg 20 mg 5-31 tablet 00:00: 00 azithromyci 2021-0 No mg n 250 mg 5-31 tablet 00:00: 00 Flonase 2021-0 No 1mcg/ac Allergy 5-31 tuation Relief 50 00:00: mcg/actuati 00 on nasal spray,suspe nsion prednisone 1-0 No mg 20 mg 5-31 tablet 00:00: 00 azithromyci 1-0 No mg n 250 mg 5-31 tablet 00:00: 00 Flonase 1-0 No 1mcg/ac Allergy 5-31 tuation Relief 50 00:00: mcg/actuati 00 on nasal spray,suspe nsion prednisone 1-0 No mg 20 mg 5-31 tablet 00:00: 00 azithromyci 1-0 No mg n 250 mg 5-31 tablet 00:00: 00 Flonase 1-0 No 1mcg/ac Allergy 5-31 tuation Relief 50 00:00: mcg/actuati 00 on nasal spray,suspe nsion amoxicillin 1-0 No 1mg 875 5-03 mg-potassiu 00:00: m 00 clavulanate 125 mg tablet amoxicillin 1-0 No 1mg 875 5-03 mg-potassiu 00:00: m 00 clavulanate 125 mg tablet amoxicillin 1-0 No 1mg 875 5-03 mg-potassiu 00:00: m 00 clavulanate 125 mg tablet amoxicillin 1-0 No 1mg 875 5-03 mg-potassiu 00:00: m 00 clavulanate 125 mg tablet amoxicillin 2021-0 No 1mg 875 5-03 mg-potassiu 00:00: m 00 clavulanate 125 mg tablet amoxicillin 1-0 No 1mg 875 5-03 mg-potassiu 00:00: m 00 clavulanate 125 mg tablet Vitamin D3 1-0 No 1(1,000 25 mcg 5-02 unit) (1,000 00:00: unit) 00 capsule Vitamin D3 1-0 No 1(1,000 25 mcg 5-02 unit) (1,000 00:00: unit) 00 capsule Vitamin D3 1-0 No 1(1,000 25 mcg 5-02 unit) (1,000 00:00: unit) 00 capsule Vitamin D3 1-0 No 1(1,000 25 mcg 5-02 unit) (1,000 00:00: unit) 00 capsule Vitamin D3 1-0 No 1(1,000 25 mcg 5-02 unit) (1,000 00:00: unit) 00 capsule Vitamin D3 1-0 No 1(1,000 25 mcg 5-02 unit) (1,000 00:00: unit) 00 capsule amoxicillin 2021-0 No 1mg 875 5-01 mg-potassiu 00:00: m 00 clavulanate 125 mg tablet amoxicillin 2021-0 No 1mg 875 5-01 mg-potassiu 00:00: m 00 clavulanate 125 mg tablet amoxicillin 2021-0 No 1mg 875 5-01 mg-potassiu 00:00: m 00 clavulanate 125 mg tablet amoxicillin 2021-0 No 1mg 875 5-01 mg-potassiu 00:00: m 00 clavulanate 125 mg tablet amoxicillin 2021-0 No 1mg 875 5-01 mg-potassiu 00:00: m 00 clavulanate 125 mg tablet amoxicillin 2021-0 No 1mg 875 5-01 mg-potassiu 00:00: m 00 clavulanate 125 mg tablet amoxicillin 2021-0 No 1mg 875 5-01 mg-potassiu 00:00: m 00 clavulanate 125 mg tablet amoxicillin 2021-0 No 1mg 875 5-01 mg-potassiu 00:00: m 00 clavulanate 125 mg tablet amoxicillin 2021-0 No 1mg 875 5-01 mg-potassiu 00:00: m 00 clavulanate 125 mg tablet amoxicillin 2021-0 No 1mg 875 5-01 mg-potassiu 00:00: m 00 clavulanate 125 mg tablet amoxicillin 2021-0 No 1mg 875 5-01 mg-potassiu 00:00: m 00 clavulanate 125 mg tablet amoxicillin 1-0 No 1mg 875 5-01 mg-potassiu 00:00: m 00 clavulanate 125 mg tablet Polytrim 2020-0 No 21 10,000 4-22 mg/mL unit-1 00:00: mg/mL eye 00 drops Polytrim 2020-0 No 21 10,000 4-22 mg/mL unit-1 00:00: mg/mL eye 00 drops Polytrim 2020-0 No 21 10,000 4-22 mg/mL unit-1 00:00: mg/mL eye 00 drops Polytrim 2020-0 No 21 10,000 4-22 mg/mL unit-1 00:00: mg/mL eye 00 drops Polytrim 2020-0 No 21 10,000 4-22 mg/mL unit-1 00:00: mg/mL eye 00 drops Polytrim 2020-0 No 21 10,000 4-22 mg/mL unit-1 00:00: mg/mL eye 00 drops Zofran 4 mg 1-0 No 1mg tablet 25 00:00: 00 Zofran 4 mg 1-0 No 1mg tablet 25 00:00: 00 Zofran 4 mg 1-0 No 1mg tablet 02-17 00:00: 00 Zofran 4 mg 1-0 No 1mg tablet 02-17 00:00: 00 Zofran 4 mg 1-0 No 1mg tablet 25 00:00: 00 Zofran 4 mg 1-0 No 1mg tablet 25 00:00: 00 amoxicillin 1-0 No 1mg 875 1-07 mg-potassiu 00:00: m 00 clavulanate 125 mg tablet amoxicillin 1-0 No 1mg 875 1-07 mg-potassiu 00:00: m 00 clavulanate 125 mg tablet amoxicillin 1-0 No 1mg 875 1-07 mg-potassiu 00:00: m 00 clavulanate 125 mg tablet amoxicillin 1-0 No 1mg 875 1-07 mg-potassiu 00:00: m 00 clavulanate 125 mg tablet amoxicillin 2021-0 No 1mg 875 1-07 mg-potassiu 00:00: m 00 clavulanate 125 mg tablet amoxicillin 2020-0 No 1mg 875 1-07 mg-potassiu 00:00: m 00 clavulanate 125 mg tablet ProAir HFA 2019-11 No 2mcg/ac 90 0-03 tuation mcg/actuati 00:00: on aerosol inhaler prednisone 2019- No 1mg 20 mg 0-03 tablet 00:00: 00 hydroxyzine 2019- No 1mg HCl 25 mg 0-03 tablet 00:00: 00 ProAir HFA 2019- No 2mcg/ac 90 0-03 tuation mcg/actuati 00:00: on aerosol 00 inhaler prednisone 2019- No 1mg 20 mg 0-03 tablet 00:00: 00 hydroxyzine 2019-11 No 1mg HCl 25 mg 0-03 tablet 00:00: 00 ProAir HFA 2019-11 No 2mcg/ac 90 0-03 tuation mcg/actuati 00:00: on aerosol inhaler prednisone 2019- No 1mg 20 mg 0-03 tablet 00:00: 00 hydroxyzine 2019- No 1mg HCl 25 mg 0-03 tablet 00:00: 00 ProAir HFA 2019- No 2mcg/ac 90 0-03 tuation mcg/actuati 00:00: on aerosol 00 inhaler prednisone 2019-1 No 1mg 20 mg 0-03 tablet 00:00: 00 hydroxyzine 2019-1 No 1mg HCl 25 mg 0-03 tablet 00:00: 00 ProAir HFA 2019-11 No 2mcg/ac 90 0-03 tuation mcg/actuati 00:00: on aerosol 00 inhaler prednisone 2019-1 No 1mg 20 mg 0-03 tablet 00:00: 00 hydroxyzine 2019-1 No 1mg HCl 25 mg 0-03 tablet 00:00: 00 ProAir HFA 2019-1 No 2mcg/ac 90 0-03 tuation mcg/actuati 00:00: on aerosol 00 inhaler prednisone 2019-1 No 1mg 20 mg 0-03 tablet 00:00: 00 hydroxyzine 2019-1 No 1mg HCl 25 mg 0-03 tablet 00:00: 00 Meloxicam Meloxicam 2020-0 2020- No Robert 1 tablet [facility] 9-10 10-10 [facility] 00:00: 00:00 - [facility] 00 :00 [facility] aspirin 81 2020-0 Yes 81mg Take 81 mg U nivers mg chewable 5-22 by mouth ity of tablet 19:38: daily. [address] aspirin 81 2020-0 Yes 81mg Take 81 mg U nivers mg chewable 5-22 by mouth ity of tablet 19:38: daily. [address] aspirin 81 2020-0 Yes 81mg Take 81 mg U nivers mg chewable 5-22 by mouth ity of tablet 19:38: daily. [address] aspirin 81 2020-0 Yes 81mg Take 81 mg U nivers mg chewable 5-22 by mouth ity of tablet 19:38: daily. [address] aspirin 81 2020-0 Yes 81mg Take 81 mg U nivers mg chewable 5-22 by mouth ity of tablet 19:38: daily. [address] Augmentin 2020-0 No 1mg 875 mg-125 3-14 mg tablet 00:00: 00 Augmentin 2020-0 No 1mg 875 mg-125 3-14 mg tablet 00:00: 00 Augmentin 2020-0 No 1mg 875 mg-125 3-14 mg tablet 00:00: 00 Augmentin 2020-0 No 1mg 875 mg-125 3-14 mg tablet 00:00: 00 Augmentin 2020-0 No 1mg 875 mg-125 3-14 mg tablet 00:00: 00 Augmentin 2020-0 No 1mg 875 mg-125 3-14 mg tablet 00:00: 00 Tessalon 2020-0 No 12mg Perles 100 3-13 mg capsule 00:00: 00 Tessalon 2020-0 No 12mg Perles 100 3-13 mg capsule 00:00: 00 Tessalon 2020-0 No 12mg Perles 100 3-13 mg capsule 00:00: 00 Tessalon 2020-0 No 12mg Perles 100 3-13 mg capsule 00:00: 00 Tessalon 2020-0 No 12mg Perles 100 3-13 mg capsule 00:00: 00 Tessalon 2020-0 No 12mg Perles 100 3-13 mg capsule 00:00: 00 Tessalon 2020-0 No 12mg Perles 100 3-13 mg capsule 00:00: 00 Tessalon 2020-0 No 12mg Perles 100 3-13 mg capsule 00:00: 00 Tessalon 2020-0 No 12mg Perles 100 3-13 mg capsule 00:00: 00 Tessalon 2020-0 No 12mg Perles 100 3-13 mg capsule 00:00: 00 Tessalon 2020-0 No 12mg Perles 100 3-13 mg capsule 00:00: 00 Tessalon 2020-0 No 12mg Perles 100 3-13 mg capsule 00:00: 00 Bromfed DM 2020-0 No 10mg/5 2 mg-30 3-12 mL mg-10 mg/5 00:00: mL oral 00 syrup Bromfed DM 2020-0 No 10mg/5 2 mg-30 3-12 mL mg-10 mg/5 00:00: mL oral 00 syrup Bromfed DM 2020-0 No 10mg/5 2 mg-30 3-12 mL mg-10 mg/5 00:00: mL oral 00 syrup Bromfed DM 2020-0 No 10mg/5 2 mg-30 3-12 mL mg-10 mg/5 00:00: mL oral 00 syrup Bromfed DM 2020-0 No 10mg/5 2 mg-30 3-12 mL mg-10 mg/5 00:00: mL oral 00 syrup Bromfed DM 2020-0 No 10mg/5 2 mg-30 3-12 mL mg-10 mg/5 00:00: mL oral 00 syrup diclofenac 2020-0 No 1mg sodium 75 3-09 mg 00:00: tablet,vesta 00 yed release cetirizine 2020-0 No 1mg 10 mg 3-09 capsule 00:00: 00 diclofenac 2020-0 No 1mg sodium 75 3-09 mg 00:00: tablet,vesta 00 yed release cetirizine 2020-0 No 1mg 10 mg 3-09 capsule 00:00: 00 diclofenac 2020-0 No 1mg sodium 75 3-09 mg 00:00: tablet,vesta 00 yed release cetirizine 2020-0 No 1mg 10 mg 3-09 capsule 00:00: 00 diclofenac 2020-0 No 1mg sodium 75 3-09 mg 00:00: tablet,vesta 00 yed release cetirizine 2020-0 No 1mg 10 mg 3-09 capsule 00:00: 00 diclofenac 2020-0 No 1mg sodium 75 3-09 mg 00:00: tablet,vesta 00 yed release cetirizine 2020-0 No 1mg 10 mg 3-09 capsule 00:00: 00 diclofenac 2020-0 No 1mg sodium 75 3-09 mg 00:00: tablet,vesta 00 yed release cetirizine 2020-0 No 1mg 10 mg 3-09 capsule 00:00: 00 ibuprofen Yes [id number] 600mg Take 1 U nivers 600 mg 6-24 tablet by ity of tablet 00:00: mouth [place] 00 every 6 Medical (six) Branch hours as needed for Pain (scale 4-6). phenazopyri Yes [id number] 200mg Take 1 [facility] 200 mg 6-24 tablet by ity of tablet 00:00: mouth 3 (three) Medical times Branch daily as needed for Pain. ibuprofen Yes [id number] 600mg Take 1 U nivers 600 mg 6-24 tablet by ity of tablet 00:00: mouth [place] 00 every 6 Medical (six) Branch hours as needed for Pain (scale 4-6). phenazopyri Yes [id number] 200mg Take 1 [facility] d[facility] 200 mg 6-24 tablet by ity of tablet 00:00: mouth (three) Medical times Branch daily as needed for Pain. ibuprofen Yes [id number] 600mg Take 1 U nivers 600 mg 6-24 tablet by ity of tablet 00:00: mouth [place] 00 every 6 Medical (six) Branch hours as needed for Pain (scale 4-6). phenazopyri 0 Yes [id number] 200mg Take 1 [facility] d[facility] 200 mg 6-24 tablet by ity of tablet 00:00: mouth 3 (three) Medical times Branch daily as needed for Pain. ibuprofen Yes [id number] 600mg Take 1 U nivers 600 mg 6-24 tablet by ity of tablet 00:00: mouth [place] 00 every 6 Medical (six) Branch hours as needed for Pain (scale 4-6). phenazopyri 0 Yes [id number] 200mg Take 1 [facility] 200 mg 6-24 tablet by ity of tablet 00:00: mouth 3 (three) Medical times Branch daily as needed for Pain. ibuprofen 2019-0 Yes [id number] 600mg Take 1 U nivers 600 mg 6-24 tablet by ity of tablet 00:00: mouth [place] 00 every 6 Medical (six) Branch hours as needed for Pain (scale 4-6). phenazopyri 2018-0 Yes [id number] 200mg Take 1 [facility] d[facility] 200 mg 6-24 tablet by ity of tablet 00:00: mouth 3 [place] 00 (three) Medical times Branch daily as needed for Pain. ibuprofen Yes [id number] 600mg Take 1 U nivers 600 mg 6-24 tablet by ity of tablet 00:00: mouth [place] 00 every 6 Medical (six) Branch hours as needed for Pain (scale 4-6). phenazopyri 0 Yes [id number] 200mg Take 1 [facility] d[facility] 200 mg 6-24 tablet by ity of tablet 00:00: mouth 3 [place] 00 (three) Medical times Branch daily as needed for Pain. ibuprofen Yes [id number] 600mg Take 1 U nivers 600 mg 6-24 tablet by ity of tablet 00:00: mouth [place] 00 every 6 Medical (six) Branch hours as needed for Pain (scale 4-6). phenazopyri Yes [id number] 200mg Take 1 [facility] d[facility] 200 mg 6-24 tablet by ity of tablet 00:00: mouth 3 [place] 00 (three) Medical times Branch daily as needed for Pain. ibuprofen 0 Yes [id number] 600mg Take 1 U nivers 600 mg 6-24 tablet by ity of tablet 00:00: mouth [place] 00 every 6 Medical (six) Branch hours as needed for Pain (scale 4-6). phenazopyri 0 Yes [id number] 200mg Take 1 [facility] d[facility] 200 mg 6-24 tablet by ity of tablet 00:00: mouth 3 [place] 00 (three) Medical times Branch daily as needed for Pain. ibuprofen 0 Yes [id number] 600mg Take 1 U nivers 600 mg 6-24 tablet by ity of tablet 00:00: mouth [place] 00 every 6 Medical (six) Branch hours as needed for Pain (scale 4-6). phenazopyri 0 Yes [id number] 200mg Take 1 [facility] 200 mg 6-24 tablet by ity of tablet 00:00: mouth 3 [place] 00 (three) Medical times Branch daily as needed for Pain. ibuprofen 2019-0 Yes [id number] 600mg Take 1 U nivers 600 mg 6-24 tablet by ity of tablet 00:00: mouth [place] 00 every 6 Medical (six) Branch hours as needed for Pain (scale 4-6). phenazopyri 2019-0 Yes [id number] 200mg Take 1 [facility] 200 mg 6-24 tablet by ity of tablet 00:00: mouth 3 [place] 00 (three) Medical times Branch daily as needed for Pain. ibuprofen 2018-0 Yes [id number] 600mg Take 1 U nivers 600 mg 6-24 tablet by ity of tablet 00:00: mouth [place] 00 every 6 Medical (six) Branch hours as needed for Pain (scale 4-6). phenazopyri 2019-0 Yes [id number] 200mg Take 1 [facility] 200 mg 6-24 tablet by ity of tablet 00:00: mouth 3 [place] 00 (three) Medical times Branch daily as needed for Pain. ibuprofen 2018-0 Yes [id number] 600mg Take 1 U nivers 600 mg 6-24 tablet by ity of tablet 00:00: mouth [place] 00 every 6 Medical (six) Branch hours as needed for Pain (scale 4-6). phenazopyri 2018-0 Yes [id number] 200mg Take 1 [facility] 200 mg 6-24 tablet by ity of tablet 00:00: mouth 3 [place] 00 (three) Medical times Branch daily as needed for Pain. ibuprofen 2018-0 Yes [id number] 600mg Take 1 U nivers 600 mg 6-24 tablet by ity of tablet 00:00: mouth [place] 00 every 6 Medical (six) Branch hours as needed for Pain (scale 4-6). phenazopyri 2019-0 Yes [id number] 200mg Take 1 [facility] d[facility] 200 mg 6-24 tablet by ity of tablet 00:00: mouth 3 [place] 00 (three) Medical times Branch daily as needed for Pain. ibuprofen 2019-0 Yes [id number] 600mg Take 1 U nivers 600 mg 6-24 tablet by ity of tablet 00:00: mouth [place] 00 every 6 Medical (six) Branch hours as needed for Pain (scale 4-6). phenazopyri 2019-0 Yes [id number] 200mg Take 1 [facility] d[facility] 200 mg 6-24 tablet by ity of tablet 00:00: mouth 3 [place] 00 (three) Medical times Branch daily as needed for Pain. ibuprofen 20190 Yes [id number] 600mg Take 1 U nivers 600 mg 6-24 tablet by ity of tablet 00:00: mouth [place] 00 every 6 Medical (six) Branch hours as needed for Pain (scale 4-6). phenazopyri 2019-0 Yes [id number] 200mg Take 1 [facility] d[facility] 200 mg 6-24 tablet by ity of tablet 00:00: mouth 3 [place] 00 (three) Medical times Branch daily as needed for Pain. ibuprofen 0 Yes [id number] 600mg Take 1 U nivers 600 mg 6-24 tablet by ity of tablet 00:00: mouth [place] 00 every 6 Medical (six) Branch hours as needed for Pain (scale 4-6). phenazopyri 0 Yes [id number] 200mg Take 1 [facility] 200 mg 6-24 tablet by ity of tablet 00:00: mouth 3 [place] 00 (three) Medical times Branch daily as needed for Pain. ibuprofen 0 Yes [id number] 600mg Take 1 U nivers 600 mg 6-24 tablet by ity of tablet 00:00: mouth [place] 00 every 6 Medical (six) Branch hours as needed for Pain (scale 4-6). phenazopyri 0 Yes [id number] 200mg Take 1 [facility] 200 mg 6-24 tablet by ity of tablet 00:00: mouth 3 [place] 00 (three) Medical times Branch daily as needed for Pain. ibuprofen 0 Yes [id number] 600mg Take 1 U nivers 600 mg 6-24 tablet by ity of tablet 00:00: mouth [place] 00 every 6 Medical (six) Branch hours as needed for Pain (scale 4-6). phenazopyri 2018-0 Yes [id number] 200mg Take 1 [facility] 200 mg 6-24 tablet by ity of tablet 00:00: mouth 3 [place] 00 (three) Medical times Branch daily as needed for Pain. ibuprofen 2018-0 Yes [id number] 600mg Take 1 U nivers 600 mg 6-24 tablet by ity of tablet 00:00: mouth [place] 00 every 6 Medical (six) Branch hours as needed for Pain (scale 4-6). phenazopyri 2019-0 Yes [id number] 200mg Take 1 [facility] 200 mg 6-24 tablet by ity of tablet 00:00: mouth 3 [place] 00 (three) Medical times Branch daily as needed for Pain. ibuprofen 2019-0 Yes [id number] 600mg Take 1 U nivers 600 mg 6-24 tablet by ity of tablet 00:00: mouth [place] 00 every 6 Medical (six) Branch hours as needed for Pain (scale 4-6). phenazopyri 2019-0 Yes [id number] 200mg Take 1 [facility] 200 mg 6-24 tablet by ity of tablet 00:00: mouth 3 [place] 00 (three) Medical times Branch daily as needed for Pain. ibuprofen 2018-0 Yes [id number] 600mg Take 1 U nivers 600 mg 6-24 tablet by ity of tablet 00:00: mouth [place] 00 every 6 Medical (six) Branch hours as needed for Pain (scale 4-6). phenazopyri 2018-0 Yes [id number] 200mg Take 1 [facility] 200 mg 6-24 tablet by ity of tablet 00:00: mouth 3 [place] 00 (three) Medical times Branch daily as needed for Pain. phenazopyri 0 Yes [id number] 200mg Take 1 [facility] 200 mg 6-24 tablet by ity of tablet 00:00: mouth 3 [place] 00 (three) Medical times Branch daily as needed for Pain. ibuprofen 0 Yes [id number] 600mg Take 1 U nivers 600 mg 6-24 tablet by ity of tablet 00:00: mouth [place] 00 every 6 Medical (six) Branch hours as needed for Pain (scale 4-6). phenazopyri 2018-0 Yes [id number] 200mg Take 1 [facility] 200 mg 6-24 tablet by ity of tablet 00:00: mouth 3 [place] 00 (three) Medical times Branch daily as needed for Pain. ibuprofen 0 Yes [id number] 600mg Take 1 U nivers 600 mg 6-24 tablet by ity of tablet 00:00: mouth [place] 00 every 6 Medical (six) Branch hours as needed for Pain (scale 4-6). aspirin 81 2019-0 Yes 81mg Take 81 mg U nivers mg chewable 4-05 by mouth ity of tablet 21:37: daily. [address] Branch aspirin 81 2019-0 Yes 81mg Take 81 mg U nivers mg chewable 4-05 by mouth ity of tablet 21:37: daily. [place] [id number] Medical Branch aspirin 81 2019-0 Yes 81mg Take 81 mg U nivers mg chewable 4-05 by mouth ity of tablet 21:37: daily. [address] Branch aspirin 81 2019-0 Yes 81mg Take 81 mg U nivers mg chewable 4-05 by mouth ity of tablet 21:37: daily. [address] Branch aspirin 81 2019-0 Yes 81mg Take 81 mg U nivers mg chewable 4-05 by mouth ity of tablet 21:37: daily. [address] Branch aspirin 81 2019-0 Yes 81mg Take 81 mg U nivers mg chewable 4-05 by mouth ity of tablet 21:37: daily. [address] Branch aspirin 81 2019-0 Yes 81mg Take 81 mg U nivers mg chewable 4-05 by mouth ity of tablet 21:37: daily. [address] Branch aspirin 81 2019-0 Yes 81mg Take 81 mg U nivers mg chewable 4-05 by mouth ity of tablet 21:37: daily. [address] Branch aspirin 81 2019-0 Yes 81mg Take 81 mg U nivers mg chewable 4-05 by mouth ity of tablet 21:37: daily. [address] Branch aspirin 81 2019-0 Yes 81mg Take 81 mg U nivers mg chewable 4-05 by mouth ity of tablet 21:37: daily. [address] Branch aspirin 81 2019-0 Yes 81mg Take 81 mg U nivers mg chewable 4-05 by mouth ity of tablet 21:37: daily. [address] Branch aspirin 81 2019-0 Yes 81mg Take 81 mg U nivers mg chewable 4-05 by mouth ity of tablet 21:37: daily. [address] Branch aspirin 81 2019-0 Yes 81mg Take 81 mg U nivers mg chewable 4-05 by mouth ity of tablet 21:37: daily. [address] Branch aspirin 81 2019-0 Yes 81mg Take 81 mg U nivers mg chewable 4-05 by mouth ity of tablet 21:37: daily. [address] Branch aspirin 81 2019-0 Yes 81mg Take 81 mg U nivers mg chewable 4-05 by mouth ity of tablet 21:37: daily. [address] Branch aspirin 81 2019-0 Yes 81mg Take 81 mg U nivers mg chewable 4-05 by mouth ity of tablet 21:37: daily. [address] Branch aspirin 81 2019-0 Yes 81mg Take 81 mg U nivers mg chewable 4-05 by mouth ity of tablet 21:37: daily. [address] aspirin 81 2019-0 Yes 81mg Take 81 mg U nivers mg chewable 4-05 by mouth ity of tablet 21:37: daily. [address] erythromyci 2017-11 No 5(0.5 n 5 mg/gram 1-15 %) (0.5 %) eye 00:00: ointment 00 erythromyci 2017-11 No 5(0.5 n 5 mg/gram 1-15 %) (0.5 %) eye 00:00: ointment 00 erythromyci 2017-11 No 5(0.5 n 5 mg/gram 1-15 %) (0.5 %) eye 00:00: ointment 00 erythromyci 2017-11 No 5(0.5 n 5 mg/gram 1-15 %) (0.5 %) eye 00:00: ointment 00 erythromyci 2017-11 No 5(0.5 n 5 mg/gram 1-15 %) (0.5 %) eye 00:00: ointment 00 erythromyci 2017-11 No 5(0.5 n 5 mg/gram 1-15 %) (0.5 %) eye 00:00: ointment 00 erythromyci 2017-11 No 5(0.5 n 5 mg/gram 1-15 %) (0.5 %) eye 00:00: ointment 00 erythromyci 2017-11 No 5(0.5 n 5 mg/gram 1-15 %) (0.5 %) eye 00:00: ointment 00 erythromyci 2017-11 No 5(0.5 n 5 mg/gram 1-15 %) (0.5 %) eye 00:00: ointment 00 erythromyci 2017-11 No 5(0.5 n 5 mg/gram 1-15 %) (0.5 %) eye 00:00: ointment 00 erythromyci 2017-11 No 5(0.5 n 5 mg/gram 1-15 %) (0.5 %) eye 00:00: ointment 00 erythromyci 2017-11 No 5(0.5 n 5 mg/gram 1-15 %) (0.5 %) eye 00:00: ointment 00 neomycin-po 2017-11 No 3mg/mL- lymyxin-hyd 0-30 unit/mL rocort 3.5 00:00: -% mg-10,000 00 unit/mL-1 % ear drops,susp prednisone 2017-11 No 1mg 20 mg 0-30 tablet 00:00: 00 neomycin-po 2017-11 No 3mg/mL- lymyxin-hyd 0-30 unit/mL rocort 3.5 00:00: -% mg-10,000 00 unit/mL-1 % ear drops,susp prednisone 2017-11 No 1mg 20 mg 0-30 tablet 00:00: 00 neomycin-po 2017-11 No 3mg/mL- lymyxin-hyd 0-30 unit/mL rocort 3.5 00:00: -% mg-10,000 00 unit/mL-1 % ear drops,susp prednisone 2017-11 No 1mg 20 mg 0-30 tablet 00:00: 00 neomycin-po 2017-11 No 3mg/mL- lymyxin-hyd 0-30 unit/mL rocort 3.5 00:00: -% mg-10,000 00 unit/mL-1 % ear drops,susp prednisone 2017-11 No 1mg 20 mg 0-30 tablet 00:00: 00 neomycin-po 2017-11 No 3mg/mL- lymyxin-hyd 0-30 unit/mL rocort 3.5 00:00: -% mg-10,000 00 unit/mL-1 % ear drops,susp prednisone 2017-11 No 1mg 20 mg 0-30 tablet 00:00: 00 neomycin-po 2017-11 No 3mg/mL- lymyxin-hyd 0-30 unit/mL rocort 3.5 00:00: -% mg-10,000 00 unit/mL-1 % ear drops,susp prednisone 2017-11 No 1mg 20 mg 0-30 tablet 00:00: 00 loratadine 2017-11 No 1mg 10 mg 0-24 tablet 00:00: 00 loratadine 2017-11 No 1mg 10 mg 0-24 tablet 00:00: 00 prednisone 2017-11 No mg 20 mg 0-24 tablet 00:00: 00 promethazin 2017-11 No 10mg/5 e-DM 6.25 0-24 mL mg-15 mg/5 00:00: mL syrup 00 prednisone 2018-1 No mg 20 mg 0-24 tablet 00:00: 00 promethazin 2018-1 No 10mg/5 e-DM 6.25 0-24 mL mg-15 mg/5 00:00: mL syrup 00 loratadine 2018-1 No 1mg 10 mg 0-24 tablet 00:00: 00 prednisone 2018-1 No mg 20 mg 0-24 tablet 00:00: 00 promethazin 2018- No 10mg/5 e-DM 6.25 0-24 mL mg-15 mg/5 00:00: mL syrup 00 loratadine 2018- No 1mg 10 mg 0-24 tablet 00:00: 00 prednisone 2018-1 No mg 20 mg 0-24 tablet 00:00: 00 promethazin 2018- No 10mg/5 e-DM 6.25 0-24 mL mg-15 mg/5 00:00: mL syrup 00 loratadine 2018- No 1mg 10 mg 0-24 tablet 00:00: 00 prednisone 2018-1 No mg 20 mg 0-24 tablet 00:00: 00 promethazin 2018- No 10mg/5 e-DM 6.25 0-24 mL mg-15 mg/5 00:00: mL syrup 00 loratadine 2018- No 1mg 10 mg 0-24 tablet 00:00: 00 prednisone 2018-1 No mg 20 mg 0-24 tablet 00:00: 00 promethazin 2018-1 No 10mg/5 e-DM 6.25 0-24 mL mg-15 mg/5 00:00: mL syrup 00 oxybutynin 2018-0 No 1mg chloride 5 7-10 mg tablet 00:00: 00 oxybutynin 2018-0 No 1mg chloride 5 7-10 mg tablet 00:00: 00 oxybutynin 2018-0 No 1mg chloride 5 7-10 mg tablet 00:00: 00 oxybutynin 2018-0 No 1mg chloride 5 7-10 mg tablet 00:00: 00 oxybutynin 2018-0 No 1mg chloride 5 7-10 mg tablet 00:00: 00 oxybutynin 2018-0 No 1mg chloride 5 7-10 mg tablet 00:00: 00 Bactrim DS 2018-0 No 1mg 800 mg-160 6-29 mg tablet 00:00: 00 Keflex 500 2018-0 No 1mg mg capsule 05-24 00:00: 00 Bactrim DS 2018-0 No 1mg 800 mg-160 6-29 mg tablet 00:00: 00 Keflex 500 2018-0 No 1mg mg capsule 05-24 00:00: 00 Bactrim DS 2018-0 No 1mg 800 mg-160 6-29 mg tablet 00:00: 00 Keflex 500 2018-0 No 1mg mg capsule 05-24 00:00: 00 Bactrim DS 2018-0 No 1mg 800 mg-160 6-29 mg tablet 00:00: 00 Keflex 500 2018-0 No 1mg mg capsule 05-24 00:00: 00 Bactrim DS 2018-0 No 1mg 800 mg-160 6-29 mg tablet 00:00: 00 Keflex 500 2018-0 No 1mg mg capsule 05-24 00:00: 00 Bactrim DS 2018-0 No 1mg 800 mg-160 6-29 mg tablet 00:00: 00 Keflex 500 2018-0 No 1mg mg capsule 05-24 00:00: 00 dicyclomine 2018-0 Yes 20mg Take 1 [facility] 20 6-21 tablet by [facility] mg tablet 00:00: mouth ([facility]) [facility] daily as needed for Abdominal pain for up to 30 doses. dicyclomine 2018-0 Yes 20mg Take 1 [facility] ([facility]) 20 6-21 tablet by [facility] mg tablet 00:00: mouth ([facility]) [facility] daily as needed for Abdominal pain for up to 30 doses. dicyclomine 2018-0 Yes 20mg Take 1 [facility] ([facility]) 20 6-21 tablet by [facility] mg tablet 00:00: mouth ([facility]) [facility] daily as needed for Abdominal pain for up to 30 doses. dicyclomine 2018-0 Yes 20mg Take 1 [facility] (BENTYL) 20 6-21 tablet by ity of mg tablet 00:00: mouth ([facility]) Medical times Branch daily as needed for Abdominal pain for up to 30 doses. dicyclomine 2018-0 Yes 20mg Take 1 Univ ers (BENTYL) 20 6-21 tablet by ity of mg tablet 00:00: mouth ([facility]) Medical times Branch daily as needed for [...] by ity of mg tablet 00:00: mouth ([facility]) Medical times Branch daily as needed for [...] by ity of mg tablet 00:00: mouth ([facility]) Medical times Branch daily as needed for [...] by ity of mg tablet 00:00: mouth ([facility]) Medical times Branch daily as needed for [...] by ity of mg tablet 00:00: mouth ([facility]) Medical times Branch daily as needed for [...] Abdominal pain for up to 30 doses. promethazin 2016-0 No 12mg e 12.5 mg 2-16 tablet 00:00: 00 promethazin 2016-0 No 12mg e 12.5 mg 2-16 tablet 00:00: 00 promethazin 2016-0 No 12mg e 12.5 mg 2-16 tablet 00:00: 00 promethazin 2016-0 No 12mg e 12.5 mg 2-16 tablet 00:00: 00 promethazin 2016-0 No 12mg e 12.5 mg 2-16 tablet 00:00: 00 promethazin 2016-0 No 12mg e 12.5 mg 2-16 tablet 00:00: 00 Zithromax 1 No 1mg Z-Carlos 250 1-12 mg tablet 00:00: 00 Zithromax 2014-11 No 1mg Z-Carlos 250 1-12 mg tablet 00:00: 00 Zithromax 2014-11 No 1mg Z-Carlos 250 1-12 mg tablet 00:00: 00 Zithromax 2014-11 No 1mg Z-Carlos 250 1-12 mg tablet 00:00: 00 Zithromax 2014-11 No 1mg Z-Carlos 250 1-12 mg tablet 00:00: 00 Zithromax 1 No 1mg Z-Carlos 250 1-12 mg tablet 00:00: 00 Bromfed DM 2014-11 No 10mg/5 2 mg-30 1-11 mL mg-10 mg/5 00:00: mL syrup Bromfed DM 2014-11 No 10mg/5 2 mg-30 1-11 mL mg-10 mg/5 00:00: mL syrup Bromfed DM 2014-11 No 10mg/5 2 mg-30 1-11 mL mg-10 mg/5 00:00: mL syrup 00 Bromfed DM 2014-11 No 10mg/5 2 mg-30 1-11 mL mg-10 mg/5 00:00: mL syrup 00 Bromfed DM 2014-11 No 10mg/5 2 mg-30 1-11 mL mg-10 mg/5 00:00: mL syrup 00 Bromfed DM 2014-11 No 10mg/5 2 mg-30 1-11 mL mg-10 mg/5 00:00: mL syrup 00 Diclofenac Diclofenac Yes Robert not Common Sodium Sodium O[facility] defined [facility] Artificial Artificial Yes Robert not Common Tears Tears [facility] defined [facility] Yes Robert not Comm on Oro defined [facility] MethylPREDN MethylPREDN Yes Robert not Common ISolone ISolone Oro defined [facility] Valacyclovi Valacyclovi Yes Robert not Common r HCl r HCl Oro defined [facility] Aspirin Low Aspirin Low Yes Robert not Common Dose Dose Oro defined [facility] PredniSONE PredniSONE Yes Robert not Common Oro defined [facility] Amoxicillin Amoxicillin Yes Robert not Common -Pot -Pot Oro defined [facility] Clavulanate Clavulanate [facility] Immunizations Ordered Immunization Filled Immunization Date Status Commen ts Source Name Name zoster 2021-07-08 Completed 00:00:00 zoster 2021-07-08 Completed 00:00:00 zoster 2021-07-08 Completed 00:00:00 zoster 2021-07-08 Completed 00:00:00 zoster 2021-07-08 Completed 00:00:00 zoster 2021-07-08 Completed 00:00:00 Moderna COVID-19 2021-05-17 Completed Vaccine 00:00:00 Moderna COVID-19 2021-05-17 Completed Vaccine 00:00:00 Moderna COVID-19 2021-05-17 Completed Vaccine 00:00:00 Moderna COVID-19 2021-05-17 Completed Vaccine 00:00:00 Moderna COVID-19 2021-05-17 Completed Vaccine 00:00:00 Moderna COVID-19 2021-05-17 Completed Vaccine 00:00:00 Moderna COVID-19 2021-03-24 Completed Vaccine 00:00:00 Moderna COVID-19 2021-03-24 Completed Vaccine 00:00:00 Moderna COVID-19 2021-03-24 Completed Vaccine 00:00:00 Moderna COVID-19 2021-03-24 Completed Vaccine 00:00:00 Moderna COVID-19 2021-03-24 Completed Vaccine 00:00:00 Moderna COVID-19 2021-03-24 Completed Vaccine 00:00:00 pneumococcal 2018-11-05 Completed polysacchar 00:00:00 zoster 2018-11-05 Completed 00:00:00 pneumococcal 2018-11-05 Completed polysacchar 00:00:00 zoster 2018-11-05 Completed 00:00:00 pneumococcal 2018-11-05 Completed polysacchar 00:00:00 zoster 2018-11-05 Completed 00:00:00 pneumococcal 2018-11-05 Completed polysacchar 00:00:00 zoster 2018-11-05 Completed 00:00:00 pneumococcal 2018-11-05 Completed polysacchar 00:00:00 zoster 2018-11-05 Completed 00:00:00 pneumococcal 2018-11-05 Completed polysacchar 00:00:00 zoster 2018-11-05 Completed 00:00:00 Tdap 2018-10-25 Completed 00:00:00 Tdap 2018-10-25 Completed 00:00:00 Tdap 2018-10-25 Completed 00:00:00 Tdap 2018-10-25 Completed 00:00:00 Tdap 2018-10-25 Completed 00:00:00 Tdap 2018-10-25 Completed 00:00:00 Vital Signs Vital Name Observation Time Observation Value Comments Source BP Systolic 2022-12-18 16:53:00 126 mm[Hg] BP Diastolic 2022-12-18 16:53:00 84 mm[Hg] Weight Measured 2022-12-18 16:53:00 181.40 pounds Height Measured 2022-12-18 16:53:00 64.00 inches Body Temperature 2022-12-18 16:53:00 98.30 degrees Heart Rate 2022-12-18 16:53:00 Respiratory Rate 2022-12-18 16:53:00 BP Systolic 2022-11-24 13:17:00 118 mm[Hg] BP Diastolic 2022-11-24 13:17:00 82 mm[Hg] Weight Measured 2022-11-24 13:17:00 175.40 pounds Height Measured 2022-11-24 13:17:00 64.00 inches Body Temperature 2022-11-24 13:17:00 98.80 degrees Heart Rate 2022-11-24 13:17:00 65.00 /min Respiratory Rate 2022-11-24 13:17:00 BP Systolic 2022-05-04 17:10:00 109 mm[Hg] BP Diastolic 2022-05-04 17:10:00 73 mm[Hg] Weight Measured 2022-05-04 17:10:00 163.20 pounds Height Measured 2022-05-04 17:10:00 64.00 inches Body Temperature 2022-05-04 17:10:00 98.30 degrees Heart Rate 2022-05-04 17:10:00 68.00 /min Respiratory Rate 2022-05-04 17:10:00 18.00 /min BP Systolic 2022-04-20 08:34:00 116 mm[Hg] BP Diastolic 2022-04-20 08:34:00 78 mm[Hg] Weight Measured 2022-04-20 08:34:00 165.20 pounds Height Measured 2022-04-20 08:34:00 64.00 inches Body Temperature 2022-04-20 08:34:00 98.40 degrees Heart Rate 2022-04-20 08:34:00 62.00 /min Respiratory Rate 2022-04-20 08:34:00 BP Systolic 2022-04-07 17:48:00 120 mm[Hg] BP Diastolic 2022-04-07 17:48:00 77 mm[Hg] Weight Measured 2022-04-07 17:48:00 162.40 pounds Height Measured 2022-04-07 17:48:00 64.00 inches Body Temperature 2022-04-07 17:48:00 98.30 degrees Heart Rate 2022-04-07 17:48:00 61.00 /min Respiratory Rate 2022-04-07 17:48:00 18.00 /min BP Systolic 2021-07-20 15:24:00 111 mm[Hg] BP Diastolic 2021-07-20 15:24:00 68 mm[Hg] Weight Measured 2021-07-20 15:24:00 176.60 pounds Height Measured 2021-07-20 15:24:00 64.00 inches Body Temperature 2021-07-20 15:24:00 98.20 degrees Heart Rate 2021-07-20 15:24:00 63.00 /min Respiratory Rate 2021-07-20 15:24:00 BP Systolic 2021-07-08 11:31:00 112 mm[Hg] BP Diastolic 2021-07-08 11:31:00 78 mm[Hg] Weight Measured 2021-07-08 11:31:00 176.00 pounds Height Measured 2021-07-08 11:31:00 64.00 inches Body Temperature 2021-07-08 11:31:00 98.30 degrees Heart Rate 2021-07-08 11:31:00 56.00 /min Respiratory Rate 2021-07-08 11:31:00 BP Systolic 2021-03-24 09:06:00 120 mm[Hg] BP Diastolic 2021-03-24 09:06:00 67 mm[Hg] Weight Measured 2021-03-24 09:06:00 183.20 pounds Height Measured 2021-03-24 09:06:00 64.00 inches Body Temperature 2021-03-24 09:06:00 98.80 degrees Heart Rate 2021-03-24 09:06:00 56.00 /min Respiratory Rate 2021-03-24 09:06:00 17.00 /min BP Systolic 2021-03-17 09:18:00 112 mm[Hg] BP Diastolic 2021-03-17 09:18:00 75 mm[Hg] Weight Measured 2021-03-17 09:18:00 181.00 pounds Height Measured 2021-03-17 09:18:00 64.00 inches Body Temperature 2021-03-17 09:18:00 98.90 degrees Heart Rate 2021-03-17 09:18:00 58.00 /min Respiratory Rate 2021-03-17 09:18:00 18.00 /min BP Systolic 2020-12-02 13:17:00 137 mm[Hg] BP Diastolic 2020-12-02 13:17:00 82 mm[Hg] Weight Measured 2020-12-02 13:17:00 181.80 pounds Height Measured 2020-12-02 13:17:00 64.00 inches Body Temperature 2020-12-02 13:17:00 98.90 degrees Heart Rate 2020-12-02 13:17:00 66.00 /min Respiratory Rate 2020-12-02 13:17:00 17.00 /min BP Systolic 2020-08-28 13:38:00 124 mm[Hg] BP Diastolic 2020-08-28 13:38:00 84 mm[Hg] Weight Measured 2020-08-28 13:38:00 179.40 pounds Height Measured 2020-08-28 13:38:00 64.00 inches Body Temperature 2020-08-28 13:38:00 97.00 degrees Heart Rate 2020-08-28 13:38:00 69.00 /min Respiratory Rate 2020-08-28 13:38:00 18.00 /min BP Systolic 2020-02-09 14:35:00 117 mm[Hg] BP Diastolic 2020-02-09 14:35:00 76 mm[Hg] Weight Measured 2020-02-09 14:35:00 183.20 pounds Height Measured 2020-02-09 14:35:00 64.00 inches Body Temperature 2020-02-09 14:35:00 99.50 degrees Heart Rate 2020-02-09 14:35:00 79.00 /min Respiratory Rate 2020-02-09 14:35:00 17.00 /min Procedures Procedure Date / Time Performing Clinician Source Performed INSURANCE CORRESPONDENCE 2021-02-22 05:01:00 Doctor Alecia, [facility] AUTHORIZATION FOR RELEASE 2021-01-25 06:01:00 Doctor Unassigned, [facility] EXTERNAL PROVIDER RECORDS 2020-02-16 05:01:00 Doctor Unassigned, [facility] EXTERNAL PROVIDER RECORDS 2020-01-29 06:01:00 Doctor Unassigned, [facility] EXTERNAL PROVIDER RECORDS 2020-01-19 06:01:00 Doctor Unassigned, [facility] Name [facility] EXTERNAL PROVIDER RECORDS 2019-08-06 05:01:00 Doctor Unassigned, [facility] Plan of Care Planned Activity Planned Date Details Comments Source Goal Plan of Care Note [code = 52025-3] Goal Plan of Care Note [code = 22200-9] Goal Plan of Care Note [code = 01430-1] Goal Plan of Care Note [code = 37378-4] Goal Plan of Care Note [code = 18667-7] Goal Plan of Care Note [code = 52092-2] Goal Plan of Care Note [code = 51725-5] Goal Plan of Care Note [code = 98861-8] Goal Plan of Care Note [code = 86204-5] Goal Plan of Care Note [code = 84209-7] Goal Plan of Care Note [code = 56085-1] Goal Plan of Care Note [code = 75377-3] Goal Plan of Care Note [code = 91149-4] Goal Plan of Care Note [code = 66049-5] Goal Plan of Care Note [code = 16477-4] Goal Plan of Care Note [code = 81393-3] Goal Plan of Care Note [code = 68678-7] Goal Plan of Care Note [code = 00094-2] Goal Plan of Care Note [code = 83766-4] Goal Plan of Care Note [code = 22931-6] Goal Plan of Care Note [code = 05336-3] Goal Plan of Care Note [code = 84232-4] Goal Plan of Care Note [code = 50142-8] Goal Plan of Care Note [code = 60470-4] Goal Plan of Care Note [code = 53928-8] Goal Plan of Care Note [code = 45918-1] Goal Plan of Care Note [code = 53765-4] Goal Plan of Care Note [code = 29003-6] Goal Plan of Care Note [code = 47062-6] Goal Plan of Care Note [code = 18659-8] Goal Plan of Care Note [code = 39874-5] Goal Plan of Care Note [code = 20763-3] Goal Plan of Care Note [code = 49819-8] Goal Plan of Care Note [code = 34230-9] Goal Plan of Care Note [code = 82973-9] Goal Plan of Care Note [code = 37991-2] Goal Plan of Care Note [code = 62014-4] Goal Plan of Care Note [code = 10977-5] Goal Plan of Care Note [code = 11553-8] Goal Plan of Care Note [code = 98496-3] Goal Plan of Care Note [code = 93785-0] Goal Plan of Care Note [code = 24541-0] Goal Plan of Care Note [code = 53065-1] Goal Plan of Care Note [code = 46673-0] Goal Plan of Care Note [code = 03540-6] Goal Plan of Care Note [code = 04177-4] Goal Plan of Care Note [code = 52485-8] Goal Plan of Care Note [code = 51482-9] Goal Plan of Care Note [code = 65621-8] Goal Plan of Care Note [code = 34871-3] Goal Plan of Care Note [code = 78477-3] Goal Plan of Care Note [code = 71772-8] Goal Plan of Care Note [code = 70367-2] Goal Plan of Care Note [code = 72552-5] Goal Plan of Care Note [code = 44203-9] Goal Plan of Care Note [code = 46631-4] Goal Plan of Care Note [code = 54825-2] Goal Plan of Care Note [code = 64147-9] Goal Plan of Care Note [code = 31098-0] Goal Plan of Care Note [code = 97950-0] Goal Plan of Care Note [code = 72344-1] Goal Plan of Care Note [code = 69841-5] Goal Plan of Care Note [code = 62215-1] Goal Plan of Care Note [code = 39724-0] Goal Plan of Care Note [code = 66138-6] Goal Plan of Care Note [code = 35831-4] Goal Plan of Care Note [code = 87160-1] Goal Plan of Care Note [code = 38422-5] Goal Plan of Care Note [code = 29176-0] Goal Plan of Care Note [code = 56261-6] Goal Plan of Care Note [code = 49204-8] Goal Plan of Care Note [code = 42506-7] Goal Plan of Care Note [code = 75734-8] Goal Plan of Care Note [code = 10389-7] Goal Plan of Care Note [code = 71529-5] Goal Plan of Care Note [code = 23695-0] Goal Plan of Care Note [code = 36139-0] Goal Plan of Care Note [code = 99883-1] Goal Plan of Care Note [code = 62210-7] Goal Plan of Care Note [code = 16332-5] Goal Plan of Care Note [code = 75025-5] Goal Plan of Care Note [code = 60364-4] Goal Plan of Care Note [code = 18746-8] Goal Plan of Care Note [code = 11836-1] Goal Plan of Care Note [code = 86021-8] Goal Plan of Care Note [code = 67599-8] Goal Plan of Care Note [code = 81313-9] Goal Plan of Care Note [code = 40086-7] Goal Plan of Care Note [code = 44977-2] Goal Plan of Care Note [code = 00864-6] Goal Plan of Care Note [code = 90212-0] Goal Plan of Care Note [code = 27187-1] Goal Plan of Care Note [code = 51497-5] Goal Plan of Care Note [code = 90631-2] Goal Plan of Care Note [code = 93215-9] Goal Plan of Care Note [code = 04239-3] Goal Plan of Care Note [code = 87193-4] Goal Plan of Care Note [code = 23063-1] Goal Plan of Care Note [code = 51495-4] Goal Plan of Care Note [code = 68477-9] Goal Plan of Care Note [code = 54066-0] Goal Plan of Care Note [code = 20777-2] Goal Plan of Care Note [code = 44855-9] Goal Plan of Care Note [code = 50844-7] Goal Plan of Care Note [code = 15621-7] Goal Plan of Care Note [code = 40143-0] Goal Plan of Care Note [code = 42944-5] Goal Plan of Care Note [code = 54993-3] Goal Plan of Care Note [code = 42181-2] Goal Plan of Care Note [code = 71275-0] Goal Plan of Care Note [code = 90625-3] Goal Plan of Care Note [code = 98696-4] Goal Plan of Care Note [code = 82098-7] Goal Plan of Care Note [code = 71566-3] Goal Plan of Care Note [code = 27042-2] Goal Plan of Care Note [code = 05332-0] Goal Plan of Care Note [code = 78250-2] Goal Plan of Care Note [code = 72309-8] Goal Plan of Care Note [code = 67191-3] Goal Plan of Care Note [code = 91343-7] Goal Plan of Care Note [code = 73158-9] Goal Plan of Care Note [code = 51275-5] Goal Plan of Care Note [code = 87222-0] Goal Plan of Care Note [code = 68613-9] Goal Plan of Care Note [code = 29125-9] Goal Plan of Care Note [code = 05392-9] Goal Plan of Care Note [code = 08213-3] Goal Plan of Care Note [code = 33897-5] Goal Plan of Care Note [code = 01367-5] Goal Plan of Care Note [code = 17293-3] Goal Plan of Care Note [code = 49637-4] Goal Plan of Care Note [code = 42457-1] Goal Plan of Care Note [code = 11951-2] Goal Plan of Care Note [code = 73781-1] Goal Plan of Care Note [code = 69677-7] Goal Plan of Care Note [code = 81957-8] Goal Plan of Care Note [code = 73320-0] Goal Plan of Care Note [code = 55493-0] Goal Plan of Care Note [code = 36825-9] Goal Plan of Care Note [code = 38853-5] Goal Plan of Care Note [code = 56107-3] Goal Plan of Care Note [code = 96389-1] Goal Plan of Care Note [code = 33646-8] Goal Plan of Care Note [code = 18465-7] Goal Plan of Care Note [code = 01305-5] Goal Plan of Care Note [code = 64844-2] Goal Plan of Care Note [code = 16453-6] Goal Plan of Care Note [code = 23677-4] Goal Plan of Care Note [code = 38123-5] Goal Plan of Care Note [code = 10408-8] Goal Plan of Care Note [code = 87459-3] Goal Plan of Care Note [code = 18616-1] Goal Plan of Care Note [code = 96981-9] Goal Plan of Care Note [code = 19066-5] Goal Plan of Care Note [code = 28058-2] Goal Plan of Care Note [code = 51090-5] Goal Plan of Care Note [code = 49095-6] Goal Plan of Care Note [code = 34784-6] Goal Plan of Care Note [code = 84355-9] Goal Plan of Care Note [code = 45320-5] Goal Plan of Care Note [code = 35781-7] Goal Plan of Care Note [code = 24491-9] Goal Plan of Care Note [code = 83569-3] Goal Plan of Care Note [code = 08166-8] Goal Plan of Care Note [code = 00945-8] Goal Plan of Care Note [code = 38291-0] Goal Plan of Care Note [code = 40835-7] Goal Plan of Care Note [code = 97511-3] Goal Plan of Care Note [code = 30314-6] Goal Plan of Care Note [code = 26405-0] Goal Plan of Care Note [code = 51154-6] Goal Plan of Care Note [code = 43190-7] Goal Plan of Care Note [code = 61322-9] Goal Plan of Care Note [code = 38767-0] Goal Plan of Care Note [code = 35889-4] Goal Plan of Care Note [code = 68754-4] Goal Plan of Care Note [code = 59620-7] Goal Plan of Care Note [code = 99491-0] Goal Plan of Care Note [code = 57353-3] Goal Plan of Care Note [code = 58043-4] Goal Plan of Care Note [code = 27895-3] Goal Plan of Care Note [code = 07442-5] Goal Plan of Care Note [code = 38177-9] Goal Plan of Care Note [code = 89777-0] Goal Plan of Care Note [code = 29239-8] Goal Plan of Care Note [code = 46498-4] Goal Plan of Care Note [code = 02441-9] Goal Plan of Care Note [code = 18629-0] Goal Plan of Care Note [code = 91541-7] Goal Plan of Care Note [code = 74409-1] Goal Plan of Care Note [code = 38245-9] Goal Plan of Care Note [code = 06621-9] Goal Plan of Care Note [code = 51721-3] Goal Plan of Care Note [code = 71410-2] Goal Plan of Care Note [code = 46850-4] Goal Plan of Care Note [code = 12377-3] Goal Plan of Care Note [code = 81566-4] Goal Plan of Care Note [code = 02157-6] Goal Plan of Care Note [code = 86720-0] Goal Plan of Care Note [code = 83138-8] Goal Plan of Care Note [code = 18723-1] Goal Plan of Care Note [code = 33615-6] Goal Plan of Care Note [code = 92773-7] Goal Plan of Care Note [code = 87566-7] Goal Plan of Care Note [code = 07551-0] Goal Plan of Care Note [code = 79379-6] Goal Plan of Care Note [code = 13999-3] Goal Plan of Care Note [code = 95536-5] Goal Plan of Care Note [code = 53520-1] Goal Plan of Care Note [code = 73652-4] Goal Plan of Care Note [code = 40440-3] Goal Plan of Care Note [code = 59522-8] Goal Plan of Care Note [code = 55397-4] Goal Plan of Care Note [code = 12572-3] Goal Plan of Care Note [code = 30278-1] Goal Plan of Care Note [code = 98721-2] Goal Plan of Care Note [code = 86260-3] Goal Plan of Care Note [code = 55411-1] Goal Plan of Care Note [code = 65937-4] Goal Plan of Care Note [code = 81441-5] Goal Plan of Care Note [code = 78080-1] Goal Plan of Care Note [code = 91470-5] Goal Plan of Care Note [code = 17043-1] Goal Plan of Care Note [code = 19216-5] Goal Plan of Care Note [code = 86354-4] Goal Plan of Care Note [code = 69437-1] Goal Plan of Care Note [code = 14324-7] Goal Plan of Care Note [code = 28692-8] Goal Plan of Care Note [code = 04108-1] Goal Plan of Care Note [code = 25521-7] Goal Plan of Care Note [code = 70756-9] Goal Plan of Care Note [code = 01146-4] Goal Plan of Care Note [code = 93894-8] Goal Plan of Care Note [code = 69002-2] Goal Plan of Care Note [code = 77135-7] Goal Plan of Care Note [code = 86766-0] Goal Plan of Care Note [code = 10563-5] Goal Plan of Care Note [code = 22496-5] Goal Plan of Care Note [code = 89608-8] Goal Plan of Care Note [code = 78356-9] Goal Plan of Care Note [code = 62732-3] Goal Plan of Care Note [code = 62978-6] Goal Plan of Care Note [code = 84762-5] Goal Plan of Care Note [code = 22171-5] Goal Plan of Care Note [code = 56682-1] Goal Plan of Care Note [code = 68955-7] Goal Plan of Care Note [code = 65706-0] Goal Plan of Care Note [code = 90292-0] Goal Plan of Care Note [code = 19239-8] Goal Plan of Care Note [code = 89292-8] Goal Plan of Care Note [code = 27350-5] Goal Plan of Care Note [code = 44962-9] Goal Plan of Care Note [code = 81980-0] Goal Plan of Care Note [code = 84131-9] Goal Plan of Care Note [code = 09561-7] Goal Plan of Care Note [code = 03246-0] Goal Plan of Care Note [code = 74068-9] Goal Plan of Care Note [code = 45897-7] Goal Plan of Care Note [code = 69201-5] Goal Plan of Care Note [code = 86703-2] Goal Plan of Care Note [code = 60772-9] Goal Plan of Care Note [code = 74284-8] Goal Plan of Care Note [code = 72289-9] Goal Plan of Care Note [code = 32501-1] Goal Plan of Care Note [code = 18267-3] Goal Plan of Care Note [code = 65967-4] Goal Plan of Care Note [code = 75921-6] Goal Plan of Care Note [code = 60241-8] Goal Plan of Care Note [code = 58989-3] Goal Plan of Care Note [code = 20100-6] Goal Plan of Care Note [code = 20315-4] Goal Plan of Care Note [code = 99692-3] Goal Plan of Care Note [code = 16739-0] Goal Plan of Care Note [code = 45878-3] Goal Plan of Care Note [code = 93780-6] Goal Plan of Care Note [code = 14991-3] Goal Plan of Care Note [code = 38780-6] Goal Plan of Care Note [code = 33503-1] Goal Plan of Care Note [code = 79995-7] Goal Plan of Care Note [code = 31220-4] Goal Plan of Care Note [code = 54540-8] Goal Plan of Care Note [code = 77498-0] Goal Plan of Care Note [code = 54210-6] Goal Plan of Care Note [code = 19346-9] Goal Plan of Care Note [code = 62173-0] Goal Plan of Care Note [code = 23825-2] Goal Plan of Care Note [code = 65567-3] Goal Plan of Care Note [code = 58590-4] Goal Plan of Care Note [code = 92340-8] Goal Plan of Care Note [code = 70730-1] Goal Plan of Care Note [code = 69640-0] Goal Plan of Care Note [code = 60883-2] Goal Plan of Care Note [code = 83052-2] Goal Plan of Care Note [code = 05222-6] Goal Plan of Care Note [code = 42749-3] Encounters Start End Encounter Admission Attending Care Care Encounter Source Date/Time Date/Time Type Type Clinicians Facility Department ID 2023-03-15 Outpatient [facility] ST[facility] [id number] Common 10:34:00 [id number] [facility] 2021-12-21 Outpatient STLMLC STLMLC [id number] Common 11:45:05 [id number] [facility] 2021-12-21 Outpatient STLMLC STLMLC [id number] Common 11:44:56 [id number] [facility] 2023-03-08 2023-03-08 Outpatient SFA SFA [id number] 023 [place] 14:32:50 14:32:50 0413 [facility] 2023-02-17 2023-02-17 Outpatient SFA SFA [id number] [place] 12:42:23 12:42:23 0325 [facility] 2023-01-22 2023-01-22 Outpatient SFA SFA [id number] [place] 14:20:56 14:20:56 0227 [facility] 2023-01-19 2023-01-19 Outpatient SFA SFA [id number] 023 [place] 10:30:32 10:30:32 0224 [facility] 2023-01-06 2023-01-06 Outpatient SFA SFA [id number] [place] 12:26:49 12:26:49 021 [facility] 2022-12-25 2022-12-25 Outpatient SFA SFA [id number] [place] 15:57:46 15:57:46 0130 [facility] 2022-12-19 2022-12-19 Outpatient SFA SFA [id number] [place] 17:07:18 17:07:18 0124 [facility]ine 2022-12-18 2022-12-18 Outpatient SFA SFA [id number] [place] 16:52:50 16:52:50 0123 [facility]ine 2022-12-18 2022-12-18 Outpatient [id number] 00:00:00 00:00:00 Visit [id number] 2022-11-24 2022-11-24 Outpatient SFA SFA [id number] 022 [place] 13:12:34 13:12:34 1230 F Carmine 2022-11-24 2022-11-24 Outpatient [id number] 00:00:00 00:00:00 Visit [id number] eee-4766-b -p4sf-7v7 2df-1b8c51 z47v07788 x68287 2022-10-17 2022-10-17 Outpatient SFA SFA 74033-2 022 [place] 10:39:17 10:39:17 1122 F Carmine 2022-10-17 2022-10-17 Outpatient [id number]- [id number] 201h74-9 00:00:00 00:00:00 Visit 666d-4f5b 66d-4f5b-a -v4jz-12b 1cd-93ef67 d39o69o81 f38e31 2022-10-16 2022-10-16 Outpatient SFA SFA [id number] 022 [place] 11:47:24 11:47:24 1121 F Carmine 2022-10-16 2022-10-16 Outpatient 3toe142s- [id number] 4c ej823x-8 00:00:00 00:00:00 Visit 1v29-587i n91-163z-p -yh5i-yfk v3e-paz8vn 1ig875e8p 469c5d 2022-06-27 2022-06-27 Outpatient 53vazz69- [id number] oitq55-g 00:00:00 00:00:00 Visit g855-198i 062-461b-8 -4n43-73r c43-65o10n 09t9g954e 6i199g 2022-05-22 2022-05-22 Outpatient 553g3xa4- [id number] 2s2vq2-0 00:00:00 00:00:00 Visit 3p38-21t7 p74-99x6-0 -947d-464 47d-464aa0 ab48a9r5u 4a8b5a 2021-02-22 2021-02-22 Orders Doctor RAHAT 1.2.840.114 [id number] [facility] 00:00:00 00:00:00 Only Unassigned, KIRA 350.1.13.10 ity of [facility] 4.2.7.2.686 [place] as [id number] [address] 2021-01-25 2021-01-25 Orders Doctor RAHAT 1.2.840.114 [id number] [employer] 00:00:00 00:00:00 Only Unassigned, KIRA 350.1.13.10 ity of [facility] 4.2.7.2.686 [place] as [phone] [place] [address] Branch 2020 2020 [facility] [id number] Common 14:00:00 14:00:00 t [facility] - [facility] 2020-05-24 2020-05-24 Telephone ODeb, UNIVERSIT 1.2.840.114 [id number] Univers 00:00:00 00:00:00 Dolores Y HEALTH 350.1.13.10 i ty of [facility] [place] [id number] [place] 6[address] Branch 2020-05-24 2020-05-24 Telephone ODeb, UNIVERSIT 1.2.840.114 [id number] 00:00:00 00:00:00 Dolores Y HEALTH 350.1.13.10 CLINICS 4.2.7.2.686 [id number] [facility] 2020-04-22 2020-04-22 Telephone Dang, UNIVERSIT 1.2.840.114 [id number] Univers 00:00:00 00:00:00 Dol[place] Y HEALTH 350.1.13.10 i ty [place] [id number] [address] 2020-04-22 2020-04-22 Telephone ReedAbbyShakila, UNIVERSIT 1.2.840.114 [id number] 00:00:00 00:00:00 [place] Y HEALTH 350.1.13.10 CLINICS 4.2.7.2.686 [id number] [facility] 2020-04-16 2020-04-16 Outpatient R DANG, [facility] [id number] Univers 15:00:00 15:00:[address] [facility] 2020-04-16 2020-04-16 Telemedici Dang, UNIVERSIT 1.2.840.11 [id number] [facility] 07:41:39 08:11:39 ne Visit Dolores Y HEALTH 350.1.13.10 ity [place] [id number] [address] 2020-04-16 2020-04-16 Telemedici ReedDemetriaShakila, UNIVERSIT 1.2.840.11 4 [id number] 07:41:39 08:11:39 ne Visit Dolores Y HEALTH 350.1.13.10 CLINICS 4.2.7.2.686 [id number] [facility] 2020-02-16 2020-02-16 Orders Doctor RAHAT 1.2.840.114 [id number] Univers 00:00:00 00:00:00 Only Unassigned, KIRA 350.1.13.10 ity of [facility] 4.2.7.2.686 [place] [id number] [address] 2020-02-16 2020-02-16 Orders Doctor RAHAT 1.2.840.114 [id number] 00:00:00 00:00:00 Only Unassigned, KIRA 350.1.13.10 [facility] 4.2.7.2.686 [id number] 009 2020-01-29 2020-01-29 Orders Doctor RAHAT 1.2.840.114 [id number] Univers 00:00:00 00:00:00 Only Unassigned, KIRA 350.1.13.10 ity of [facility] 4.2.7.2.686 [place] [id number] [address] 2020-01-29 2020-01-29 Orders Doctor RAHAT 1.2.840.114 [id number] 00:00:00 00:00:00 Only Unassigned, KIRA 350.1.13.10 [facility] 4.2.7.2.686 [id number] 2020-01-27 2020-01-27 Telephone Dang, UNIVERSIT 1.2.840.114 [id number] Univers 00:00:00 00:00:00 [place] Y HEALTH 350.1.13.10 i ty [place] [id number] [address] 2020-01-27 2020-01-27 Telephone Dang, UNIVERSIT 1.2.840.114 [id number] 00:00:00 00:00:00 [place] Y HEALTH 350.1.13.10 CLINICS 4.2.7.2.686 [id number] [facility] 2020-01-22 2020-01-22 Telephone OJulienShakila, UNIVERSIT 1.2.840.114 [id number] Univers 00:00:00 00:00:00 [place] Y HEALTH 350.1.13.10 i [place] [id number] [address] 2020-01-22 2020-01-22 Telephone OJulienShakila, UNIVERSIT 1.2.840.114 [id number] 00:00:00 00:00:00 [place] Y HEALTH 350.1.13.10 CLINICS 4.2.7.2.686 [id number] [facility] 2020-01-19 2020-01-19 Orders Doctor GIANG 1.2.840.114 [id number] [facility] 00:00:00 00:00:00 Only Unassigned, KIRA 350.1.13.10 ity of [facility] 4.2.7.2.686 [place] [id number] [address] 2020-01-14 2020-01-14 Telephone O'Shakila, UNIVERSIT 1.2.840.114 [id number] Univers 00:00:00 00:00:00 [place] Y HEALTH 350.1.13.10 i ty [place] [id number] [address] 2020-01-12 2020-01-12 Telephone O'Shakila, UNIVERSIT 1.2.840.114 [id number] Univers 00:00:00 00:00:00 [place] Y HEALTH 350.1.13.10 i ty [place] [id number] [address] 2019-12-30 2019-12-30 Telephone OJulienShakila, UNIVERS 1.2.840.114 [id number] Univers 00:00:00 00:00:00 [place] Y HEALTH 350.1.13.10 i ty [place] [id number] [address] 2019-12-23 2019-12-23 Telephone OJulienShakila, [facility] 1.2.840.114 [id number] Univers 00:00:00 00:00:00 [place] Y HEALTH 350.1.13.10 i ty of [place] [id number] [address] 2019-08-06 2019-08-06 Orders Doctor GIANG 1.2.840.114 [id number] Univers 00:00:00 00:00:00 Only Unassigned, KIRA 350.1.13.10 ity of [facility] 4.2.7.2.686 [place] [id number] [address] 2019-07-30 2019-07-30 Telephone O'Shakila, UNIVERS 1.2.840.114 [id number] Univers 00:00:00 00:00:00 Dolores Y HEALTH 350.1.13.10 i ty of CLINICS 4.2.7.2.686 [place] s [id number] [facility] 071 Branch Results Test Description Test Time Test Comments Results Result Comments Source SURGICAL PATHOLOGY REPORT 2023-01-24 17:56:48 Test Item Value Reference Range Interpretation Comme nts DIAGNOSIS: (test code = 8200) (NOTE) A) Biopsy - Cervix 11:00Cervical transformation zone with chronic inflammation an dreactive epithelial changes.Negativ e for atypia, dysplasia and malignancy. B) Curettage - EndocervixBenig n endocervical tissue and squamous mucosa .Benign atrophic endometrium.Neg ative for atypia, dysplasia and m alignancy. MICROSCOPIC DESCRIPTION: (test (NOTE) A) Cervical transformation zone mucosa code = 8210) shows chronic i nflammationand mild reactive cellul ar changes. No dysplasia or malignancyis identified. B) The sample contains endoce rvical tissue, comprising strips ofglandu lar epithelium and intact mucosal fragmen ts admixed withinflammator y mucin and blood. Also present is inac tive/atrophicendometrium, histiocytes and ectocervical squamous mucosa. Noatypi a, dysplasia or malignancy is identified. CLINICAL DATA: (test code = 8401) (NOTE) Not specified GROSS DESCRIPTION: (test code = (NOTE) A) SPECIMEN LABELED: Cervix 8220) 11:00SIZE/WEIGH T: 0.3x0.2x0.1 cm SPECIMEN COLOR: TanNUMBE R OF TISSUE PIECES: 1SUBMITTED IN C ASSETTE(S): y5UTIPEO: FormalinCOMMENT S:Entirely submitted intact. B) SPEC IMEN LABELED: EndocervixSIZE/ WEIGHT: 1.3x1.2x0.2 cm AggregateSPECIM EN COLOR: TanNUMBER OF TISSUE PIECES: multipleSUBMITTED IN CASSETTE(S): x1 MEDIUM: FormalinCOMMENT S:Filtered and entirely submitted. PATHOLOGIST: (test code = 8250) (NOTE) Jerardo Hinton M.D. Board Certified in Anatomic and Cl inicalPathology, [place] Board of Pathol [facility] [place] Specimens processed and interpreted at [facility], [address] [place] [address] 7700 4, , CLIA: [id number] CPT: (test code = 8400) (NOTE) 8830 5x2 [facility] has important pathology staff changes e ffective 01/24/2023. New pathology s taff will provide uninterrupted, excellent patient care and clinical consul tation. See URL: [email or web address]. UNLESS OTHERWISE INDIC ATED, ALL TESTING PERFORMED AT [facility], I [place]. [address] [place] [address] FRITZ SHEPPARD DIRECTOR: JERARDO HINTON M.D. [place] NUMBER [id number] [facility] [place] [id number] PAP TEST, THINPREP, [id number] 06:23:50 Test Item Value Reference Range Interpretation Comments SOURCE: (test Cervical/Endoce code = 8001) rvical SLIDES: (test 1 code = 8011) LMP: (test code SEE NOTE POST MENOPA USAL = 8021) SPECIMEN (NOTE) Satisfactory f or ADEQUACY: (test evaluation. code = 42408) Endocervical cells/transform ation zone component present. INTERPRETATION: NILM/NO EPITH. (test code = ABNORMALITY;SEE 63405) BELOW -------- - NEGATIVE FOR INTRAEPITHELIAL LESION OR MALIGNANCY ( NILM) -------- -------- -------- ---- OTHER COMMENTS: (NOTE) Shift in makenna ra (test code = suggestive of b acterial 8081) vaginosis. [employer] TECHNICAL OFFICER Royal Rivas : (test code = 8101) QC TECHNOLOGIST: ADRIAN Diaz (test code = LY,CT(ASCP) 8111) LOCATION: (test (NOTE) Specimens pr ocessed and code = 88028) interpreted at [facility], [address] [place], [place] [address], Phone: , CLIA: [id number] CPT: (test code (NOTE) 09868 UNLESS OTHERWISE = 8140) INDICATED, COMP UTER AIDED AND CYTOTECHNOLOGIS T SCREENING PERFO RMED. The Pap test is a screening test with an inherent, but l ow probability of error. Your patient sh ould be reminded to con sult you immediately if she experiences any suspicious sign s or symptoms, regar dless of her Pap test re sult. An alternate repor t format containing imag es or consolidated pr ior Pap history is avai lable as applicable. VAGINAL PATHOGENS DNA [id number] 16:05:17 Test Item Value Reference Range Interpretation Comments MILLICENT SPECIES NEGATIVE NEGATIVE (test code = ) G. VAGINALIS POSITIVE NEGATIVE A (test code = ) T. VAGINALIS NEGATIVE NEGATIVE Note: The BD A ffirm VPIII (test code = Microbial Ident ification ) Testis a DNA pr obe test intended for us e in the detectionand id entification of Millicent spec ies, Gardnerellavagi nalis and Trichomonas vag inalis nucleic acid. * [facility] has important patho logy staff changes effecti ve 01/24/2023. New pathology staff will provide uninterrupted, excellent patient care an d clinical consultation. S ee URL: [email or web address]. UNLESS OTHE RWISE INDICATED, ALL TESTING PERFORMED AT [facility] [address] [place] [address] CLIA: [id number], CAP: [id number] CT/NG, NAAT, [id number] 14:18:46 Test Item Value Reference Range Interpretation Comments CHLAMYDIA, NAAT, NEGATIVE NEGATIVE A negative result does THINPREP (test code not excl ude low level = 12110) infection, specimensamplin g error, or collection erro r. Testing is performed the [employer] 680 systems usingre al-time Polymerase Cesar n Reaction (PCR) method. GONORRHEA, NAAT, NEGATIVE NEGATIVE A negative result does THINPREP (test code not excl ude low level = 49127) infection, specimensamplin g error, or collection erro r. Testing is performed wi th the Natalie Sally 680 systems usingre al-time Polymerase Cesar n Reaction (PCR) method. HPV HIGH RISK WITH GENOTYPE, [id number] 14:07:23 Test Item Value Reference Range Interpretation Comments HPV HIGH RISK INTERP POSITIVE NEGATIVE A (test code = 96492) HPV 16 (test code = POSITIVE A 84066) HPV 18 (test code = NEGATIVE 13220) HPV, HR, OTHER NEGATIVE Testing meth odology is GENOTYPES (test code real-ti me PCR utilizing = 78178) hydrolysis prob es with the Natalie Sally 4800 system. The amina t individually de tects genotypes 16 an d 18, as well as the oth er 12 high risk types (31,33,35,39,45 ,51,52,56 ,58,59,66,68). The expected result is negative. A neg ative result does not rule out the presence of HPV not included in the genotype set, a low leve l of infection or sp ecimen sampling error. [facility] has important p athology staff changes e ffective 01/24/2023. New pathology staff will provide uninter rupted, excellent patie nt care and clinical consultation. S ee URL: [email or web address]. UNLESS OTHERWISE INDICATED, ALL TESTING PERFORMED AT [facility] [address] [place] [address] CLIA : [id number], CAP : [id number] CULTURE, [id number] 11:19:59SPECIMEN NUMBER: [id number] CULTURE, URINE SPECIMEN NUMBER: [id number] SPECIMEN COMMENT: URINE SOURCE:URINE REPORT STATUS: FINAL FINAL REPORT: 12/21/2022 NO GROWTH AFTER 36 HOURS INCUBATION UNLESS OTHERW ISE INDICATED, ALL TESTING PERFORMED [facility] [address] [place], [place] [id number] SCHOOL PSYCHOLOGICAL EXAMINER: JERARDO HINTON M.D. CLIA NUMBER [id number] [place]. [id number]. PYLORI (BREATH)2022-04-25 13:14:53 Test Item Value Reference Range Interpretation Comments H. PYLORI (BREATH) (test code = POSITIVE NEGATIVE A 83941) H. PYLORI (BREATH)2022-04-25 00:00:00 Test Item Value Reference Range Interpretation Comments H. PYLORI (BREATH) (test code = POSITIVE 87598) H. PYLORI (BREATH)2022-04-25 00:00:00 Test Item Value Reference Range Interpretation Comments H. PYLORI (BREATH) (test code = POSITIVE 33657) H. PYLORI (BREATH)2022-04-25 00:00:00 Test Item Value Reference Range Interpretation Comments H. PYLORI (BREATH) (test code = POSITIVE 59628) H. PYLORI (BREATH)2022-04-25 00:00:00 Test Item Value Reference Range Interpretation Comments H. PYLORI (BREATH) (test code = POSITIVE 95916) H. PYLORI (BREATH)2022-04-25 00:00:00 Test Item Value Reference Range Interpretation Comments H. PYLORI (BREATH) (test code = POSITIVE 67800) H. PYLORI (BREATH)2022-04-25 00:00:00 Test Item Value Reference Range Interpretation Comments H. PYLORI (BREATH) (test code = POSITIVE 71972) H. PYLORI (BREATH)2022-04-25 00:00:00 Test Item Value Reference Range Interpretation Comments H. PYLORI (BREATH) (test code = POSITIVE 18503) H. PYLORI (BREATH)2022-04-25 00:00:00 Test Item Value Reference Range Interpretation Comments H. PYLORI (BREATH) (test code = POSITIVE 84502) H. PYLORI (BREATH)2022-04-25 00:00:00 Test Item Value Reference Range Interpretation Comments H. PYLORI (BREATH) (test code = POSITIVE 31669) H. PYLORI (BREATH)2022-04-25 00:00:00 Test Item Value Reference Range Interpretation Comments H. PYLORI (BREATH) (test code = POSITIVE 59634) H. PYLORI (BREATH)2022-04-25 00:00:00 Test Item Value Reference Range Interpretation Comments H. PYLORI (BREATH) (test code = POSITIVE 18257) UNLABELLED [id number] 06:02:48 Test Item Value Reference Range Interpretation Comments NOTE: (test code = SPECIMEN RECEIVED WITHOUT 91323) PATIENT'S NAME. UNLESS OTHERWISE INDIC ATED, ALL TESTING PERFORM ED ATCLINICAL PATHOLOGY [facility] [address] [place] [address] LABORATOR Y DIRECTOR: JERARDO RESTREPO M.D. CLIA NUMBER [id number] CAP ACCREDITATION N O. [id number] UNLABELLED SPECIMEN [ADDED]2022-04-23 00:00:00 Test Item Value Reference Range Interpretation Comments NOTE: (test code = 80982) UNLABELLED SPECIMEN [ADDED]2022-04-23 00:00:00 Test Item Value Reference Range Interpretation Comments NOTE: (test code = 40715) UNLABELLED SPECIMEN [ADDED]2022-04-23 00:00:00 Test Item Value Reference Range Interpretation Comments NOTE: (test code = 03548) UNLABELLED SPECIMEN [ADDED]2022-04-23 00:00:00 Test Item Value Reference Range Interpretation Comments NOTE: (test code = 34811) UNLABELLED SPECIMEN [ADDED]2022-04-23 00:00:00 Test Item Value Reference Range Interpretation Comments NOTE: (test code = 45065) UNLABELLED SPECIMEN [ADDED]2022-04-23 00:00:00 Test Item Value Reference Range Interpretation Comments NOTE: (test code = 69684) TSH, THIRD [id number] 05:20:11 Test Item Value Reference Range Interpretation Comments TSH, THIRD 3.150 UIU/ML 0.400-4.100 UNLESS OTHERWI SE GENERATION (test INDICATED, ALL TESTING code = 2821) PERFORMED [facility] PATHOLOGY [facility], [id number] [place] [address] DIRECTOR: JERARDO HINTON M.D. CLIA NUMBER [id number] CAP ACCREDITATION N O. [id number] 00:00:00 Test Item Value Reference Range Interpretation Comments TSH, THIRD GENERATION (test code 3.150 UIU/ML = 2821) [id number] 00:00:00 Test Item Value Reference Range Interpretation Comments TSH, THIRD GENERATION (test code 3.150 UIU/ML = 2821) [id number] 00:00:00 Test Item Value Reference Range Interpretation Comments TSH, THIRD GENERATION (test code 3.150 UIU/ML = 2821) [id number] 00:00:00 Test Item Value Reference Range Interpretation Comments TSH, THIRD GENERATION (test code 3.150 UIU/ML = 2821) [id number] 00:00:00 Test Item Value Reference Range Interpretation Comments TSH, THIRD GENERATION (test code 3.150 UIU/ML = 2821) [id number] 00:00:00 Test Item Value Reference Range Interpretation Comments TSH, THIRD GENERATION (test code 3.150 UIU/ML = 2821) [id number] 00:00:00 Test Item Value Reference Range Interpretation Comments TSH, THIRD GENERATION (test code 3.150 UIU/ML = 2821) [id number] 00:00:00 Test Item Value Reference Range Interpretation Comments TSH, THIRD GENERATION (test code 3.150 UIU/ML = 2821) [id number] 00:00:00 Test Item Value Reference Range Interpretation Comments TSH, THIRD GENERATION (test code 3.150 UIU/ML = 2821) [id number] 00:00:00 Test Item Value Reference Range Interpretation Comments TSH, THIRD GENERATION (test code 3.150 UIU/ML = 2821) [id number] 00:00:00 Test Item Value Reference Range Interpretation Comments TSH, THIRD GENERATION (test code 3.150 UIU/ML = 2821) [id number] 00:00:00 Test Item Value Reference Range Interpretation Comments TSH, THIRD GENERATION (test code 3.150 UIU/ML = 2821) [id number] 00:00:00 Test Item Value Reference Range Interpretation Comments TSH, THIRD GENERATION (test code 3.150 UIU/ML = 2821) [id number] 00:00:00 Test Item Value Reference Range Interpretation Comments TSH, THIRD GENERATION (test code 3.150 UIU/ML = 2821) [id number] 00:00:00 Test Item Value Reference Range Interpretation Comments TSH, THIRD GENERATION (test code 3.150 UIU/ML = 2821) [id number] 00:00:00 Test Item Value Reference Range Interpretation Comments TSH, THIRD GENERATION (test code 3.150 UIU/ML = 2821) [id number] 00:00:00 Test Item Value Reference Range Interpretation Comments TSH, THIRD GENERATION (test code 3.150 UIU/ML = 2821) SARS-CoV-2 (COVID-19), RT-PCR/[id number] 17:22:58 Test Item Value Reference Interpretation Comments Range SARS-CoV-2 NEGATIVE SEE NOTE SARS-CoV-2 RNA NOT INTERPRETATION DETECTEDNegat praneeth (test code = 04832) results do not preclude SARS-C oV-2 infection and s hould notbe used as t he sole basis for patie nt management deci sions. Negativeresults must be combined wit h clinical observ ations, patient history ,and epidemiological information. Op timum specimen types and timingfor peak viral levels during infections caus ed by SARS-CoV-2 have notbeen determi nesha. Collection of m ultiple specimens or ty pes ofspecimens may be necessary to de tect virus. Improper specimencollect ion and handling, seque nce variability und er primers/probes, or organism presen t below the limit of de tection may lead to falsenegative r esults. Positive and ne gative predictive valu es oftesting are h ighly dependent on prevalence. Fal se negative testre sults are more likely when prevalence is h igh. SOURCE (test code = NASOPHARYNGEAL Note: [place] [address]) Natalie Sally [place] l-Time RT-PCR. The exp ected result or refer ence range is NEGATI VE (Not Detected). For more information reg arding COVID-19 testin g to include clinicalinforma tion, methodology det ail, intended use, F DA authorization andrecommended fact sheets for ann ents or healthcare prov iders, see NewTest Announcement: SARS-CoV-2 (COV ID-19) by NAAT at URL below (note,fact shee ts are provided by met hod given in report:https:// www.Ep[employer]yme.com/clinic ians/cl ient-communicat ions/ Alternatively, see downloadable PD F fact sheet at:https://www. Lavantecom/COVID-19-R T-PCR UNLESS OTHERWIS E INDICATED, ALL TESTING PERFORMED [facility], I [place]. [address] [place] [address] FRITZ CAVAZOS DIRECTOR: JERARDO HINTON M.D. CLIA NUMBER [id number] CAP ACCREDITATION N O. [id number] SARS-CoV-2 (COVID-19) by RT-PCR (HIGH RISK)2021-12-04 00:00:00 Test Item Value Reference Range Interpretation Comments SARS-CoV-2 INTERPRETATION NEGATIVE (test code = 92522) SOURCE (test code = 91205) NASOPHARYNGEAL SARS-CoV-2 (COVID-19) by RT-PCR (HIGH RISK)2021-12-04 00:00:00 Test Item Value Reference Range Interpretation Comments SARS-CoV-2 INTERPRETATION NEGATIVE (test code = 41533) SOURCE (test code = 22556) NASOPHARYNGEAL SARS-CoV-2 (COVID-19) by RT-PCR (HIGH RISK)2021-12-04 00:00:00 Test Item Value Reference Range Interpretation Comments SARS-CoV-2 INTERPRETATION NEGATIVE (test code = 76612) SOURCE (test code = 03071) NASOPHARYNGEAL SARS-CoV-2 (COVID-19) by RT-PCR (HIGH RISK)2021-12-04 00:00:00 Test Item Value Reference Range Interpretation Comments SARS-CoV-2 INTERPRETATION NEGATIVE (test code = 92731) SOURCE (test code = 03627) NASOPHARYNGEAL SARS-CoV-2 (COVID-19) by RT-PCR (HIGH RISK)2021-12-04 00:00:00 Test Item Value Reference Range Interpretation Comments SARS-CoV-2 INTERPRETATION NEGATIVE (test code = 58884) SOURCE (test code = 75545) NASOPHARYNGEAL SARS-CoV-2 (COVID-19) by RT-PCR (HIGH RISK)2021-12-04 00:00:00 Test Item Value Reference Range Interpretation Comments SARS-CoV-2 INTERPRETATION NEGATIVE (test code = 85077) SOURCE (test code = 27377) NASOPHARYNGEAL SARS-CoV-2 (COVID-19) by RT-PCR (HIGH RISK)2021-12-04 00:00:00 Test Item Value Reference Range Interpretation Comments SARS-CoV-2 INTERPRETATION NEGATIVE (test code = 23176) SOURCE (test code = 06419) NASOPHARYNGEAL SARS-CoV-2 (COVID-19) by RT-PCR (HIGH RISK)2021-12-04 00:00:00 Test Item Value Reference Range Interpretation Comments SARS-CoV-2 INTERPRETATION NEGATIVE (test code = 09796) SOURCE (test code = 28455) NASOPHARYNGEAL SARS-CoV-2 (COVID-19) by RT-PCR (HIGH RISK)2021-12-04 00:00:00 Test Item Value Reference Range Interpretation Comments SARS-CoV-2 INTERPRETATION NEGATIVE (test code = 00918) SOURCE (test code = 24790) NASOPHARYNGEAL SARS-CoV-2 (COVID-19) by RT-PCR (HIGH RISK)2021-12-04 00:00:00 Test Item Value Reference Range Interpretation Comments SARS-CoV-2 INTERPRETATION NEGATIVE (test code = 68982) SOURCE (test code = 92762) NASOPHARYNGEAL SARS-CoV-2 (COVID-19) by RT-PCR (HIGH RISK)2021-12-04 00:00:00 Test Item Value Reference Range Interpretation Comments SARS-CoV-2 INTERPRETATION NEGATIVE (test code = 20790) SOURCE (test code = 52217) NASOPHARYNGEAL SCR MAMM BILATERAL SARAH CAD [id number] 10:53:17 Name: Dionne : 1965 Sex: F* - SCR MAMM BILATERAL SARAH CAD DIGITALBILATERAL DIGITAL SCREENING MAMMOGRAM 3D/2D WITH CAD: 10/11/2021LINICAL: Asymptomatic. Digital breast tomosynthesis was performed in addition to routine CC and MLO views. Current mammographic images were evaluated by [employer] [facility] CAD (computer-aided detection) software. Comparison is made to exams dated 06/28/2020 mammogram, 12/20/2018 mammogram - [facility], and 02/02/2012 mammogram- [facility]. The tissue of both breasts is heterogeneously dense. This may lower the sensitivity of mammography. No suspicious mass, architectural distortion, malignant type calcification, or lymph node abnormality detected. Breast architecture is stable compared to prior exams.IMPRESSION: NEGATIVEThere is no mammographic evidence of malignancy. Resume annual screening mammography in one year. Scotty Luu/penrad:10/13/2021 10:53:17 Ceramics Technician: Merary Clark MM, [facility] sent: BIRADS 1-2 Normal Mammogram BI-RADS: 1 Negative SARS-CoV-2 (COVID-19) by RT-PCR (HIGH RISK)2021-05-06 00:00:00 Test Item Value Reference Range Interpretation Comments SARS-CoV-2 INTERPRETATION (test NEGATIVE code = 56863) SOURCE (test code = 94742) NOT SPECIFIED SARS-CoV-2 (COVID-19) by RT-PCR (HIGH RISK)2021-05-06 00:00:00 Test Item Value Reference Range Interpretation Comments SARS-CoV-2 INTERPRETATION (test NEGATIVE code = 80113) SOURCE (test code = 87519) NOT SPECIFIED SARS-CoV-2 (COVID-19) by RT-PCR (HIGH RISK)2021-05-06 00:00:00 Test Item Value Reference Range Interpretation Comments SARS-CoV-2 INTERPRETATION (test NEGATIVE code = 28364) SOURCE (test code = 53006) NOT SPECIFIED SARS-CoV-2 (COVID-19) by RT-PCR (HIGH RISK)2021-05-06 00:00:00 Test Item Value Reference Range Interpretation Comments SARS-CoV-2 INTERPRETATION (test NEGATIVE code = 89765) SOURCE (test code = 68107) NOT SPECIFIED SARS-CoV-2 (COVID-19) by RT-PCR (HIGH RISK)2021-05-06 00:00:00 Test Item Value Reference Range Interpretation Comments SARS-CoV-2 INTERPRETATION (test NEGATIVE code = 45098) SOURCE (test code = 94884) NOT SPECIFIED SARS-CoV-2 (COVID-19) by RT-PCR (HIGH RISK)2021-05-06 00:00:00 Test Item Value Reference Range Interpretation Comments SARS-CoV-2 INTERPRETATION (test NEGATIVE code = 88043) SOURCE (test code = 43241) NOT SPECIFIED SARS-CoV-2 (COVID-19) by RT-PCR (HIGH RISK)2021-05-06 00:00:00 Test Item Value Reference Range Interpretation Comments SARS-CoV-2 INTERPRETATION (test NEGATIVE code = 49651) SOURCE (test code = 74367) NOT SPECIFIED SARS-CoV-2 (COVID-19) by RT-PCR (HIGH RISK)2021-05-06 00:00:00 Test Item Value Reference Range Interpretation Comments SARS-CoV-2 INTERPRETATION (test NEGATIVE code = 02904) SOURCE (test code = 88701) NOT SPECIFIED SARS-CoV-2 (COVID-19) by RT-PCR (HIGH RISK)2021-05-06 00:00:00 Test Item Value Reference Range Interpretation Comments SARS-CoV-2 INTERPRETATION (test NEGATIVE code = 52691) SOURCE (test code = 92991) NOT SPECIFIED SARS-CoV-2 (COVID-19) by RT-PCR (HIGH RISK)2021-05-06 00:00:00 Test Item Value Reference Range Interpretation Comments SARS-CoV-2 INTERPRETATION (test NEGATIVE code = 30474) SOURCE (test code = 05836) NOT SPECIFIED SARS-CoV-2 (COVID-19) by RT-PCR (HIGH RISK)2021-05-06 00:00:00 Test Item Value Reference Range Interpretation Comments SARS-CoV-2 INTERPRETATION (test NEGATIVE code = 05493) SOURCE (test code = 06067) NOT SPECIFIED CBC W/AUTO [id number] 00:00:00 Test Item Value Reference Range Interpretation Comments WBC (test code = 1001) 5.1 K/UL RBC (test code = 1002) 4.77 M/UL HEMOGLOBIN (test code = 1003) 14.6 G/DL HEMATOCRIT (test code = 1004) 43.0 % MCV (test code = 1005) 90.1 fL MCH (test code = 1006) 30.6 PG MCHC (test code = 1007) 34.0 G/DL RDW (test code = 1038) 12.5 % NEUTROPHILS (test code = 1008) 71.9 % LYMPHOCYTES (test code = 1010) 15.7 % MONOCYTES (test code = 1011) 11.2 % EOSINOPHILS (test code = 1012) 0.2 % BASOPHILS (test code = 1013) 0.8 % IMMATURE GRANULOCYTES (test 0.2 % code = 1036) NUCLEATED RBCS (test code = 0.0 /100WBC'S 1065) PLATELET COUNT (test code = 169 K/UL 1015) ABSOLUTE NEUTROPHILS (test code 3.68 K/UL = 1066) ABSOLUTE LYMPHOCYTES (test code 0.80 K/UL = 1067) ABSOLUTE MONOCYTES (test code = 0.57 K/UL 1068) ABSOLUTE EOSINOPHILS (test code 0.01 K/UL = 1040) ABSOLUTE BASOPHILS (test code = 0.04 K/UL 1069) ABS IMMATURE GRANULOCYTES (test 0.01 K/UL code = 1020) ABS NUCLEATED RBCS (test code = 0.00 K/UL 08147) HEMOGLOBIN [id number] 00:00:00 Test Item Value Reference Range Interpretation Comments HEMOGLOBIN A1c (test code = 11779) 5.2 % HEMOGLOBIN [id number] 00:00:00 Test Item Value Reference Range Interpretation Comments HEMOGLOBIN A1c (test code = 88833) 5.2 % LIPID [id number] 00:00:00 Test Item Value Reference Range Interpretation Comments CHOLESTEROL (test code = 2210) 151 MG/DL TRIGLYCERIDES (test code = 2232) 286 MG/DL HDL CHOLESTEROL (test code = 2220) 27 MG/DL CALC LDL CHOL (test code = 2237) 86 MG/DL RISK RATIO LDL/HDL (test code = 3.19 RATIO 2238) COMPREHENSIVE METABOLIC [id number] 00:00:00 Test Item Value Reference Range Interpretation Comments GLUCOSE (test code = 2217) 102 MG/DL BUN (test code = 2208) 10 MG/DL CREATININE (test code = 2214) 0.80 MG/DL eGFR AMER. (test code 96 ML/MIN/1.73 = 33245) eGFR NON- AMER. (test 83 ML/MIN/1.73 code = 61330) CALC BUN/CREAT (test code = 13 RATIO 2235) SODIUM (test code = 2231) 141 MEQ/L POTASSIUM (test code = 2228) 4.6 MEQ/L CHLORIDE (test code = 2215) 103 MEQ/L CARBON DIOXIDE (test code = 29 MEQ/L 2206) CALCIUM (test code = 2209) 9.8 MG/DL PROTEIN, TOTAL (test code = 7.1 G/DL 2228) ALBUMIN (test code = 2201) 4.4 G/DL CALC GLOBULIN (test code = 2.7 G/DL 2240) CALC A/G RATIO (test code = 1.6 RATIO 2234) BILIRUBIN, TOTAL (test code = 0.7 MG/DL 2206) ALKALINE PHOSPHATASE (test 166 U/L code = 2204) AST (test code = 2218) 15 U/L ALT (test code = 2219) 14 U/L [id number] 00:00:00 Test Item Value Reference Range Interpretation Comments TSH, THIRD GENERATION (test code 1.540 UIU/ML = 2821) [id number] 00:00:00 Test Item Value Reference Range Interpretation Comments TSH, THIRD GENERATION (test code 1.540 UIU/ML = 2821) VITAMIN D, 25 [id number] 00:00:00 Test Item Value Reference Range Interpretation Comments VITAMIN D, 25 OH (test code = 4958) 20 NG/ML CBC W/AUTO [id number] 00:00:00 Test Item Value Reference Range Interpretation Comments WBC (test code = 1001) 5.1 K/UL RBC (test code = 1002) 4.77 M/UL HEMOGLOBIN (test code = 1003) 14.6 G/DL HEMATOCRIT (test code = 1004) 43.0 % MCV (test code = 1005) 90.1 fL MCH (test code = 1006) 30.6 PG MCHC (test code = 1007) 34.0 G/DL RDW (test code = 1038) 12.5 % NEUTROPHILS (test code = 1008) 71.9 % LYMPHOCYTES (test code = 1010) 15.7 % MONOCYTES (test code = 1011) 11.2 % EOSINOPHILS (test code = 1012) 0.2 % BASOPHILS (test code = 1013) 0.8 % IMMATURE GRANULOCYTES (test 0.2 % code = 1036) NUCLEATED RBCS (test code = 0.0 /100WBC'S 1065) PLATELET COUNT (test code = 169 K/UL 1015) ABSOLUTE NEUTROPHILS (test code 3.68 K/UL = 1066) ABSOLUTE LYMPHOCYTES (test code 0.80 K/UL = 1067) ABSOLUTE MONOCYTES (test code = 0.57 K/UL 1068) ABSOLUTE EOSINOPHILS (test code 0.01 K/UL = 1040) ABSOLUTE BASOPHILS (test code = 0.04 K/UL 1069) ABS IMMATURE GRANULOCYTES (test 0.01 K/UL code = 1020) ABS NUCLEATED RBCS (test code = 0.00 K/UL 34276) CBC W/AUTO [id number] 00:00:00 Test Item Value Reference Range Interpretation Comments WBC (test code = 1001) 5.1 K/UL RBC (test code = 1002) 4.77 M/UL HEMOGLOBIN (test code = 1003) 14.6 G/DL HEMATOCRIT (test code = 1004) 43.0 % MCV (test code = 1005) 90.1 fL MCH (test code = 1006) 30.6 PG MCHC (test code = 1007) 34.0 G/DL RDW (test code = 1038) 12.5 % NEUTROPHILS (test code = 1008) 71.9 % LYMPHOCYTES (test code = 1010) 15.7 % MONOCYTES (test code = 1011) 11.2 % EOSINOPHILS (test code = 1012) 0.2 % BASOPHILS (test code = 1013) 0.8 % IMMATURE GRANULOCYTES (test 0.2 % code = 1036) NUCLEATED RBCS (test code = 0.0 /100WBC'S 1065) PLATELET COUNT (test code = 169 K/UL 1015) ABSOLUTE NEUTROPHILS (test code 3.68 K/UL = 1066) ABSOLUTE LYMPHOCYTES (test code 0.80 K/UL = 1067) ABSOLUTE MONOCYTES (test code = 0.57 K/UL 1068) ABSOLUTE EOSINOPHILS (test code 0.01 K/UL = 1040) ABSOLUTE BASOPHILS (test code = 0.04 K/UL 1069) ABS IMMATURE GRANULOCYTES (test 0.01 K/UL code = 1020) ABS NUCLEATED RBCS (test code = 0.00 K/UL 14075) CBC W/AUTO [id number] 00:00:00 Test Item Value Reference Range Interpretation Comments WBC (test code = 1001) 5.1 K/UL RBC (test code = 1002) 4.77 M/UL HEMOGLOBIN (test code = 1003) 14.6 G/DL HEMATOCRIT (test code = 1004) 43.0 % MCV (test code = 1005) 90.1 fL MCH (test code = 1006) 30.6 PG MCHC (test code = 1007) 34.0 G/DL RDW (test code = 1038) 12.5 % NEUTROPHILS (test code = 1008) 71.9 % LYMPHOCYTES (test code = 1010) 15.7 % MONOCYTES (test code = 1011) 11.2 % EOSINOPHILS (test code = 1012) 0.2 % BASOPHILS (test code = 1013) 0.8 % IMMATURE GRANULOCYTES (test 0.2 % code = 1036) NUCLEATED RBCS (test code = 0.0 /100WBC'S 1065) PLATELET COUNT (test code = 169 K/UL 1015) ABSOLUTE NEUTROPHILS (test code 3.68 K/UL = 1066) ABSOLUTE LYMPHOCYTES (test code 0.80 K/UL = 1067) ABSOLUTE MONOCYTES (test code = 0.57 K/UL 1068) ABSOLUTE EOSINOPHILS (test code 0.01 K/UL = 1040) ABSOLUTE BASOPHILS (test code = 0.04 K/UL 1069) ABS IMMATURE GRANULOCYTES (test 0.01 K/UL code = 1020) ABS NUCLEATED RBCS (test code = 0.00 K/UL 98871) HEMOGLOBIN [id number] 00:00:00 Test Item Value Reference Range Interpretation Comments HEMOGLOBIN A1c (test code = 17265) 5.2 % HEMOGLOBIN [id number] 00:00:00 Test Item Value Reference Range Interpretation Comments HEMOGLOBIN A1c (test code = 26733) 5.2 % HEMOGLOBIN [id number] 00:00:00 Test Item Value Reference Range Interpretation Comments HEMOGLOBIN A1c (test code = 95580) 5.2 % LIPID [id number] 00:00:00 Test Item Value Reference Range Interpretation Comments CHOLESTEROL (test code = 2210) 151 MG/DL TRIGLYCERIDES (test code = 2232) 286 MG/DL HDL CHOLESTEROL (test code = 2220) 27 MG/DL CALC LDL CHOL (test code = 2237) 86 MG/DL RISK RATIO LDL/HDL (test code = 3.19 RATIO 2238) LIPID [id number] 00:00:00 Test Item Value Reference Range Interpretation Comments CHOLESTEROL (test code = 2210) 151 MG/DL TRIGLYCERIDES (test code = 2232) 286 MG/DL HDL CHOLESTEROL (test code = 2220) 27 MG/DL CALC LDL CHOL (test code = 2237) 86 MG/DL RISK RATIO LDL/HDL (test code = 3.19 RATIO 2238) COMPREHENSIVE METABOLIC [id number] 00:00:00 Test Item Value Reference Range Interpretation Comments GLUCOSE (test code = 2217) 102 MG/DL BUN (test code = 2208) 10 MG/DL CREATININE (test code = 2214) 0.80 MG/DL eGFR AMER. (test code 96 ML/MIN/1.73 = 52690) eGFR NON- AMER. (test 83 ML/MIN/1.73 code = 58441) CALC BUN/CREAT (test code = 13 RATIO 2235) SODIUM (test code = 2231) 141 MEQ/L POTASSIUM (test code = 2228) 4.6 MEQ/L CHLORIDE (test code = 2215) 103 MEQ/L CARBON DIOXIDE (test code = 29 MEQ/L 2205) CALCIUM (test code = 2209) 9.8 MG/DL PROTEIN, TOTAL (test code = 7.1 G/DL 2228) ALBUMIN (test code = 2201) 4.4 G/DL CALC GLOBULIN (test code = 2.7 G/DL 2240) CALC A/G RATIO (test code = 1.6 RATIO 2234) BILIRUBIN, TOTAL (test code = 0.7 MG/DL 2206) ALKALINE PHOSPHATASE (test 166 U/L code = 2204) AST (test code = 2218) 15 U/L ALT (test code = 2219) 14 U/L COMPREHENSIVE METABOLIC [id number] 00:00:00 Test Item Value Reference Range Interpretation Comments GLUCOSE (test code = 2217) 102 MG/DL BUN (test code = 2208) 10 MG/DL CREATININE (test code = 2214) 0.80 MG/DL eGFR AMER. (test code 96 ML/MIN/1.73 = 32062) eGFR NON- AMER. (test 83 ML/MIN/1.73 code = 51750) CALC BUN/CREAT (test code = 13 RATIO 2235) SODIUM (test code = 2231) 141 MEQ/L POTASSIUM (test code = 2228) 4.6 MEQ/L CHLORIDE (test code = 2215) 103 MEQ/L CARBON DIOXIDE (test code = 29 MEQ/L 2205) CALCIUM (test code = 2209) 9.8 MG/DL PROTEIN, TOTAL (test code = 7.1 G/DL 2228) ALBUMIN (test code = 2201) 4.4 G/DL CALC GLOBULIN (test code = 2.7 G/DL 2240) CALC A/G RATIO (test code = 1.6 RATIO 2234) BILIRUBIN, TOTAL (test code = 0.7 MG/DL 7) ALKALINE PHOSPHATASE (test 166 U/L code = 2204) AST (test code = 2218) 15 U/L ALT (test code = 2219) 14 U/L [id number] 00:00:00 Test Item Value Reference Range Interpretation Comments TSH, THIRD GENERATION (test code 1.540 UIU/ML = 2821) [id number] 00:00:00 Test Item Value Reference Range Interpretation Comments TSH, THIRD GENERATION (test code 1.540 UIU/ML = 2821) [id number] 00:00:00 Test Item Value Reference Range Interpretation Comments TSH, THIRD GENERATION (test code 1.540 UIU/ML = 2821) VITAMIN D, 25 [id number] 00:00:00 Test Item Value Reference Range Interpretation Comments VITAMIN D, 25 OH (test code = 4958) 20 NG/ML VITAMIN D, 25 [id number] 00:00:00 Test Item Value Reference Range Interpretation Comments VITAMIN D, 25 OH (test code = 4958) 20 NG/ML CBC W/AUTO [id number] 00:00:00 Test Item Value Reference Range Interpretation Comments WBC (test code = 1001) 5.1 K/UL RBC (test code = 1002) 4.77 M/UL HEMOGLOBIN (test code = 1003) 14.6 G/DL HEMATOCRIT (test code = 1004) 43.0 % MCV (test code = 1005) 90.1 fL MCH (test code = 1006) 30.6 PG MCHC (test code = 1007) 34.0 G/DL RDW (test code = 1038) 12.5 % NEUTROPHILS (test code = 1008) 71.9 % LYMPHOCYTES (test code = 1010) 15.7 % MONOCYTES (test code = 1011) 11.2 % EOSINOPHILS (test code = 1012) 0.2 % BASOPHILS (test code = 1013) 0.8 % IMMATURE GRANULOCYTES (test 0.2 % code = 1036) NUCLEATED RBCS (test code = 0.0 /100WBC'S 1065) PLATELET COUNT (test code = 169 K/UL 1015) ABSOLUTE NEUTROPHILS (test code 3.68 K/UL = 1066) ABSOLUTE LYMPHOCYTES (test code 0.80 K/UL = 1067) ABSOLUTE MONOCYTES (test code = 0.57 K/UL 1068) ABSOLUTE EOSINOPHILS (test code 0.01 K/UL = 1040) ABSOLUTE BASOPHILS (test code = 0.04 K/UL 1069) ABS IMMATURE GRANULOCYTES (test 0.01 K/UL code = 1020) ABS NUCLEATED RBCS (test code = 0.00 K/UL 73964) CBC W/AUTO [id number] 00:00:00 Test Item Value Reference Range Interpretation Comments WBC (test code = 1001) 5.1 K/UL RBC (test code = 1002) 4.77 M/UL HEMOGLOBIN (test code = 1003) 14.6 G/DL HEMATOCRIT (test code = 1004) 43.0 % MCV (test code = 1005) 90.1 fL MCH (test code = 1006) 30.6 PG MCHC (test code = 1007) 34.0 G/DL RDW (test code = 1038) 12.5 % NEUTROPHILS (test code = 1008) 71.9 % LYMPHOCYTES (test code = 1010) 15.7 % MONOCYTES (test code = 1011) 11.2 % EOSINOPHILS (test code = 1012) 0.2 % BASOPHILS (test code = 1013) 0.8 % IMMATURE GRANULOCYTES (test 0.2 % code = 1036) NUCLEATED RBCS (test code = 0.0 /100WBC'S 1065) PLATELET COUNT (test code = 169 K/UL 1015) ABSOLUTE NEUTROPHILS (test code 3.68 K/UL = 1066) ABSOLUTE LYMPHOCYTES (test code 0.80 K/UL = 1067) ABSOLUTE MONOCYTES (test code = 0.57 K/UL 1068) ABSOLUTE EOSINOPHILS (test code 0.01 K/UL = 1040) ABSOLUTE BASOPHILS (test code = 0.04 K/UL 1069) ABS IMMATURE GRANULOCYTES (test 0.01 K/UL code = 1020) ABS NUCLEATED RBCS (test code = 0.00 K/UL 20581) CBC W/AUTO [id number] 00:00:00 Test Item Value Reference Range Interpretation Comments WBC (test code = 1001) 5.1 K/UL RBC (test code = 1002) 4.77 M/UL HEMOGLOBIN (test code = 1003) 14.6 G/DL HEMATOCRIT (test code = 1004) 43.0 % MCV (test code = 1005) 90.1 fL MCH (test code = 1006) 30.6 PG MCHC (test code = 1007) 34.0 G/DL RDW (test code = 1038) 12.5 % NEUTROPHILS (test code = 1008) 71.9 % LYMPHOCYTES (test code = 1010) 15.7 % MONOCYTES (test code = 1011) 11.2 % EOSINOPHILS (test code = 1012) 0.2 % BASOPHILS (test code = 1013) 0.8 % IMMATURE GRANULOCYTES (test 0.2 % code = 1036) NUCLEATED RBCS (test code = 0.0 /100WBC'S 1065) PLATELET COUNT (test code = 169 K/UL 1015) ABSOLUTE NEUTROPHILS (test code 3.68 K/UL = 1066) ABSOLUTE LYMPHOCYTES (test code 0.80 K/UL = 1067) ABSOLUTE MONOCYTES (test code = 0.57 K/UL 1068) ABSOLUTE EOSINOPHILS (test code 0.01 K/UL = 1040) ABSOLUTE BASOPHILS (test code = 0.04 K/UL 1069) ABS IMMATURE GRANULOCYTES (test 0.01 K/UL code = 1020) ABS NUCLEATED RBCS (test code = 0.00 K/UL 74425) HEMOGLOBIN [id number] 00:00:00 Test Item Value Reference Range Interpretation Comments HEMOGLOBIN A1c (test code = 84947) 5.2 % HEMOGLOBIN [id number] 00:00:00 Test Item Value Reference Range Interpretation Comments HEMOGLOBIN A1c (test code = 50285) 5.2 % HEMOGLOBIN [id number] 00:00:00 Test Item Value Reference Range Interpretation Comments HEMOGLOBIN A1c (test code = 96777) 5.2 % LIPID [id number] 00:00:00 Test Item Value Reference Range Interpretation Comments CHOLESTEROL (test code = 2210) 151 MG/DL TRIGLYCERIDES (test code = 2232) 286 MG/DL HDL CHOLESTEROL (test code = 2220) 27 MG/DL CALC LDL CHOL (test code = 2237) 86 MG/DL RISK RATIO LDL/HDL (test code = 3.19 RATIO 2238) LIPID [id number] 00:00:00 Test Item Value Reference Range Interpretation Comments CHOLESTEROL (test code = 2210) 151 MG/DL TRIGLYCERIDES (test code = 2232) 286 MG/DL HDL CHOLESTEROL (test code = 2220) 27 MG/DL CALC LDL CHOL (test code = 2237) 86 MG/DL RISK RATIO LDL/HDL (test code = 3.19 RATIO 2238) COMPREHENSIVE METABOLIC [id number] 00:00:00 Test Item Value Reference Range Interpretation Comments GLUCOSE (test code = 2217) 102 MG/DL BUN (test code = 2208) 10 MG/DL CREATININE (test code = 2214) 0.80 MG/DL eGFR AMER. (test code 96 ML/MIN/1.73 = 15027) eGFR NON- AMER. (test 83 ML/MIN/1.73 code = 11998) CALC BUN/CREAT (test code = 13 RATIO 2235) SODIUM (test code = 2231) 141 MEQ/L POTASSIUM (test code = 2228) 4.6 MEQ/L CHLORIDE (test code = 2215) 103 MEQ/L CARBON DIOXIDE (test code = 29 MEQ/L 2206) CALCIUM (test code = 2209) 9.8 MG/DL PROTEIN, TOTAL (test code = 7.1 G/DL 222) ALBUMIN (test code = 2201) 4.4 G/DL CALC GLOBULIN (test code = 2.7 G/DL 2240) CALC A/G RATIO (test code = 1.6 RATIO 2234) BILIRUBIN, TOTAL (test code = 0.7 MG/DL 2206) ALKALINE PHOSPHATASE (test 166 U/L code = 2204) AST (test code = 2218) 15 U/L ALT (test code = 2219) 14 U/L COMPREHENSIVE METABOLIC [id number] 00:00:00 Test Item Value Reference Range Interpretation Comments GLUCOSE (test code = 2217) 102 MG/DL BUN (test code = 2208) 10 MG/DL CREATININE (test code = 2214) 0.80 MG/DL eGFR AMER. (test code 96 ML/MIN/1.73 = 02711) eGFR NON- AMER. (test 83 ML/MIN/1.73 code = 62117) CALC BUN/CREAT (test code = 13 RATIO 2235) SODIUM (test code = 2231) 141 MEQ/L POTASSIUM (test code = 2228) 4.6 MEQ/L CHLORIDE (test code = 2215) 103 MEQ/L CARBON DIOXIDE (test code = 29 MEQ/L 220) CALCIUM (test code = 2209) 9.8 MG/DL PROTEIN, TOTAL (test code = 7.1 G/DL 2228) ALBUMIN (test code = 2201) 4.4 G/DL CALC GLOBULIN (test code = 2.7 G/DL 2240) CALC A/G RATIO (test code = 1.6 RATIO 2234) BILIRUBIN, TOTAL (test code = 0.7 MG/DL 2206) ALKALINE PHOSPHATASE (test 166 U/L code = 2204) AST (test code = 2218) 15 U/L ALT (test code = 2219) 14 U/L [id number] 00:00:00 Test Item Value Reference Range Interpretation Comments TSH, THIRD GENERATION (test code 1.540 UIU/ML = 2821) [id number] 00:00:00 Test Item Value Reference Range Interpretation Comments TSH, THIRD GENERATION (test code 1.540 UIU/ML = 2821) [id number] 00:00:00 Test Item Value Reference Range Interpretation Comments TSH, THIRD GENERATION (test code 1.540 UIU/ML = 2821) VITAMIN D, 25 [id number] 00:00:00 Test Item Value Reference Range Interpretation Comments VITAMIN D, 25 OH (test code = 4958) 20 NG/ML VITAMIN D, 25 [id number] 00:00:00 Test Item Value Reference Range Interpretation Comments VITAMIN D, 25 OH (test code = 4958) 20 NG/ML CBC W/AUTO [id number] 00:00:00 Test Item Value Reference Range Interpretation Comments WBC (test code = 1001) 5.1 K/UL RBC (test code = 1002) 4.77 M/UL HEMOGLOBIN (test code = 1003) 14.6 G/DL HEMATOCRIT (test code = 1004) 43.0 % MCV (test code = 1005) 90.1 fL MCH (test code = 1006) 30.6 PG MCHC (test code = 1007) 34.0 G/DL RDW (test code = 1038) 12.5 % NEUTROPHILS (test code = 1008) 71.9 % LYMPHOCYTES (test code = 1010) 15.7 % MONOCYTES (test code = 1011) 11.2 % EOSINOPHILS (test code = 1012) 0.2 % BASOPHILS (test code = 1013) 0.8 % IMMATURE GRANULOCYTES (test 0.2 % code = 1036) NUCLEATED RBCS (test code = 0.0 /100WBC'S 1065) PLATELET COUNT (test code = 169 K/UL 1015) ABSOLUTE NEUTROPHILS (test code 3.68 K/UL = 1066) ABSOLUTE LYMPHOCYTES (test code 0.80 K/UL = 1067) ABSOLUTE MONOCYTES (test code = 0.57 K/UL 1068) ABSOLUTE EOSINOPHILS (test code 0.01 K/UL = 1040) ABSOLUTE BASOPHILS (test code = 0.04 K/UL 1069) ABS IMMATURE GRANULOCYTES (test 0.01 K/UL code = 1020) ABS NUCLEATED RBCS (test code = 0.00 K/UL 30517) CBC W/AUTO [id number] 00:00:00 Test Item Value Reference Range Interpretation Comments WBC (test code = 1001) 5.1 K/UL RBC (test code = 1002) 4.77 M/UL HEMOGLOBIN (test code = 1003) 14.6 G/DL HEMATOCRIT (test code = 1004) 43.0 % MCV (test code = 1005) 90.1 fL MCH (test code = 1006) 30.6 PG MCHC (test code = 1007) 34.0 G/DL RDW (test code = 1038) 12.5 % NEUTROPHILS (test code = 1008) 71.9 % LYMPHOCYTES (test code = 1010) 15.7 % MONOCYTES (test code = 1011) 11.2 % EOSINOPHILS (test code = 1012) 0.2 % BASOPHILS (test code = 1013) 0.8 % IMMATURE GRANULOCYTES (test 0.2 % code = 1036) NUCLEATED RBCS (test code = 0.0 /100WBC'S 1065) PLATELET COUNT (test code = 169 K/UL 1015) ABSOLUTE NEUTROPHILS (test code 3.68 K/UL = 1066) ABSOLUTE LYMPHOCYTES (test code 0.80 K/UL = 1067) ABSOLUTE MONOCYTES (test code = 0.57 K/UL 1068) ABSOLUTE EOSINOPHILS (test code 0.01 K/UL = 1040) ABSOLUTE BASOPHILS (test code = 0.04 K/UL 1069) ABS IMMATURE GRANULOCYTES (test 0.01 K/UL code = 1020) ABS NUCLEATED RBCS (test code = 0.00 K/UL 75154) CBC W/AUTO [id number] 00:00:00 Test Item Value Reference Range Interpretation Comments WBC (test code = 1001) 5.1 K/UL RBC (test code = 1002) 4.77 M/UL HEMOGLOBIN (test code = 1003) 14.6 G/DL HEMATOCRIT (test code = 1004) 43.0 % MCV (test code = 1005) 90.1 fL MCH (test code = 1006) 30.6 PG MCHC (test code = 1007) 34.0 G/DL RDW (test code = 1038) 12.5 % NEUTROPHILS (test code = 1008) 71.9 % LYMPHOCYTES (test code = 1010) 15.7 % MONOCYTES (test code = 1011) 11.2 % EOSINOPHILS (test code = 1012) 0.2 % BASOPHILS (test code = 1013) 0.8 % IMMATURE GRANULOCYTES (test 0.2 % code = 1036) NUCLEATED RBCS (test code = 0.0 /100WBC'S 1065) PLATELET COUNT (test code = 169 K/UL 1015) ABSOLUTE NEUTROPHILS (test code 3.68 K/UL = 1066) ABSOLUTE LYMPHOCYTES (test code 0.80 K/UL = 1067) ABSOLUTE MONOCYTES (test code = 0.57 K/UL 1068) ABSOLUTE EOSINOPHILS (test code 0.01 K/UL = 1040) ABSOLUTE BASOPHILS (test code = 0.04 K/UL 1069) ABS IMMATURE GRANULOCYTES (test 0.01 K/UL code = 1020) ABS NUCLEATED RBCS (test code = 0.00 K/UL 55225) HEMOGLOBIN [id number] 00:00:00 Test Item Value Reference Range Interpretation Comments HEMOGLOBIN A1c (test code = 63246) 5.2 % HEMOGLOBIN [id number] 00:00:00 Test Item Value Reference Range Interpretation Comments HEMOGLOBIN A1c (test code = 59321) 5.2 % HEMOGLOBIN [id number] 00:00:00 Test Item Value Reference Range Interpretation Comments HEMOGLOBIN A1c (test code = 62504) 5.2 % LIPID [id number] 00:00:00 Test Item Value Reference Range Interpretation Comments CHOLESTEROL (test code = 2210) 151 MG/DL TRIGLYCERIDES (test code = 2232) 286 MG/DL HDL CHOLESTEROL (test code = 2220) 27 MG/DL CALC LDL CHOL (test code = 2237) 86 MG/DL RISK RATIO LDL/HDL (test code = 3.19 RATIO 2238) LIPID [id number] 00:00:00 Test Item Value Reference Range Interpretation Comments CHOLESTEROL (test code = 2210) 151 MG/DL TRIGLYCERIDES (test code = 2232) 286 MG/DL HDL CHOLESTEROL (test code = 2220) 27 MG/DL CALC LDL CHOL (test code = 2237) 86 MG/DL RISK RATIO LDL/HDL (test code = 3.19 RATIO 2238) COMPREHENSIVE METABOLIC [id number] 00:00:00 Test Item Value Reference Range Interpretation Comments GLUCOSE (test code = 2217) 102 MG/DL BUN (test code = 2208) 10 MG/DL CREATININE (test code = 2214) 0.80 MG/DL eGFR AMER. (test code 96 ML/MIN/1.73 = 88446) eGFR NON- AMER. (test 83 ML/MIN/1.73 code = 51470) CALC BUN/CREAT (test code = 13 RATIO 2235) SODIUM (test code = 2231) 141 MEQ/L POTASSIUM (test code = 2228) 4.6 MEQ/L CHLORIDE (test code = 2215) 103 MEQ/L CARBON DIOXIDE (test code = 29 MEQ/L 220) CALCIUM (test code = 2209) 9.8 MG/DL PROTEIN, TOTAL (test code = 7.1 G/DL 2228) ALBUMIN (test code = 2201) 4.4 G/DL CALC GLOBULIN (test code = 2.7 G/DL 2240) CALC A/G RATIO (test code = 1.6 RATIO 2234) BILIRUBIN, TOTAL (test code = 0.7 MG/DL 2206) ALKALINE PHOSPHATASE (test 166 U/L code = 2204) AST (test code = 2218) 15 U/L ALT (test code = 2219) 14 U/L COMPREHENSIVE METABOLIC [id number] 00:00:00 Test Item Value Reference Range Interpretation Comments GLUCOSE (test code = 2217) 102 MG/DL BUN (test code = 2208) 10 MG/DL CREATININE (test code = 2214) 0.80 MG/DL eGFR AMER. (test code 96 ML/MIN/1.73 = 10067) eGFR NON- AMER. (test 83 ML/MIN/1.73 code = 62893) CALC BUN/CREAT (test code = 13 RATIO 2235) SODIUM (test code = 2231) 141 MEQ/L POTASSIUM (test code = 2228) 4.6 MEQ/L CHLORIDE (test code = 2215) 103 MEQ/L CARBON DIOXIDE (test code = 29 MEQ/L 220) CALCIUM (test code = 2209) 9.8 MG/DL PROTEIN, TOTAL (test code = 7.1 G/DL 2228) ALBUMIN (test code = 2201) 4.4 G/DL CALC GLOBULIN (test code = 2.7 G/DL 2240) CALC A/G RATIO (test code = 1.6 RATIO 2234) BILIRUBIN, TOTAL (test code = 0.7 MG/DL 2206) ALKALINE PHOSPHATASE (test 166 U/L code = 2204) AST (test code = 2218) 15 U/L ALT (test code = 2219) 14 U/L [id number] 00:00:00 Test Item Value Reference Range Interpretation Comments TSH, THIRD GENERATION (test code 1.540 UIU/ML = 2821) [id number] 00:00:00 Test Item Value Reference Range Interpretation Comments TSH, THIRD GENERATION (test code 1.540 UIU/ML = 2821) [id number] 00:00:00 Test Item Value Reference Range Interpretation Comments TSH, THIRD GENERATION (test code 1.540 UIU/ML = 2821) VITAMIN D, 25 [id number] 00:00:00 Test Item Value Reference Range Interpretation Comments VITAMIN D, 25 OH (test code = 4958) 20 NG/ML VITAMIN D, 25 [id number] 00:00:00 Test Item Value Reference Range Interpretation Comments VITAMIN D, 25 OH (test code = 4958) 20 NG/ML CBC W/AUTO [id number] 00:00:00 Test Item Value Reference Range Interpretation Comments WBC (test code = 1001) 5.1 K/UL RBC (test code = 1002) 4.77 M/UL HEMOGLOBIN (test code = 1003) 14.6 G/DL HEMATOCRIT (test code = 1004) 43.0 % MCV (test code = 1005) 90.1 fL MCH (test code = 1006) 30.6 PG MCHC (test code = 1007) 34.0 G/DL RDW (test code = 1038) 12.5 % NEUTROPHILS (test code = 1008) 71.9 % LYMPHOCYTES (test code = 1010) 15.7 % MONOCYTES (test code = 1011) 11.2 % EOSINOPHILS (test code = 1012) 0.2 % BASOPHILS (test code = 1013) 0.8 % IMMATURE GRANULOCYTES (test 0.2 % code = 1036) NUCLEATED RBCS (test code = 0.0 /100WBC'S 1065) PLATELET COUNT (test code = 169 K/UL 1015) ABSOLUTE NEUTROPHILS (test code 3.68 K/UL = 1066) ABSOLUTE LYMPHOCYTES (test code 0.80 K/UL = 1067) ABSOLUTE MONOCYTES (test code = 0.57 K/UL 1068) ABSOLUTE EOSINOPHILS (test code 0.01 K/UL = 1040) ABSOLUTE BASOPHILS (test code = 0.04 K/UL 1069) ABS IMMATURE GRANULOCYTES (test 0.01 K/UL code = 1020) ABS NUCLEATED RBCS (test code = 0.00 K/UL 55309) CBC W/AUTO [id number] 00:00:00 Test Item Value Reference Range Interpretation Comments WBC (test code = 1001) 5.1 K/UL RBC (test code = 1002) 4.77 M/UL HEMOGLOBIN (test code = 1003) 14.6 G/DL HEMATOCRIT (test code = 1004) 43.0 % MCV (test code = 1005) 90.1 fL MCH (test code = 1006) 30.6 PG MCHC (test code = 1007) 34.0 G/DL RDW (test code = 1038) 12.5 % NEUTROPHILS (test code = 1008) 71.9 % LYMPHOCYTES (test code = 1010) 15.7 % MONOCYTES (test code = 1011) 11.2 % EOSINOPHILS (test code = 1012) 0.2 % BASOPHILS (test code = 1013) 0.8 % IMMATURE GRANULOCYTES (test 0.2 % code = 1036) NUCLEATED RBCS (test code = 0.0 /100WBC'S 1065) PLATELET COUNT (test code = 169 K/UL 1015) ABSOLUTE NEUTROPHILS (test code 3.68 K/UL = 1066) ABSOLUTE LYMPHOCYTES (test code 0.80 K/UL = 1067) ABSOLUTE MONOCYTES (test code = 0.57 K/UL 1068) ABSOLUTE EOSINOPHILS (test code 0.01 K/UL = 1040) ABSOLUTE BASOPHILS (test code = 0.04 K/UL 1069) ABS IMMATURE GRANULOCYTES (test 0.01 K/UL code = 1020) ABS NUCLEATED RBCS (test code = 0.00 K/UL 72198) CBC W/AUTO [id number] 00:00:00 Test Item Value Reference Range Interpretation Comments WBC (test code = 1001) 5.1 K/UL RBC (test code = 1002) 4.77 M/UL HEMOGLOBIN (test code = 1003) 14.6 G/DL HEMATOCRIT (test code = 1004) 43.0 % MCV (test code = 1005) 90.1 fL MCH (test code = 1006) 30.6 PG MCHC (test code = 1007) 34.0 G/DL RDW (test code = 1038) 12.5 % NEUTROPHILS (test code = 1008) 71.9 % LYMPHOCYTES (test code = 1010) 15.7 % MONOCYTES (test code = 1011) 11.2 % EOSINOPHILS (test code = 1012) 0.2 % BASOPHILS (test code = 1013) 0.8 % IMMATURE GRANULOCYTES (test 0.2 % code = 1036) NUCLEATED RBCS (test code = 0.0 /100WBC'S 1065) PLATELET COUNT (test code = 169 K/UL 1015) ABSOLUTE NEUTROPHILS (test code 3.68 K/UL = 1066) ABSOLUTE LYMPHOCYTES (test code 0.80 K/UL = 1067) ABSOLUTE MONOCYTES (test code = 0.57 K/UL 1068) ABSOLUTE EOSINOPHILS (test code 0.01 K/UL = 1040) ABSOLUTE BASOPHILS (test code = 0.04 K/UL 1069) ABS IMMATURE GRANULOCYTES (test 0.01 K/UL code = 1020) ABS NUCLEATED RBCS (test code = 0.00 K/UL 65214) HEMOGLOBIN [id number] 00:00:00 Test Item Value Reference Range Interpretation Comments HEMOGLOBIN A1c (test code = 46342) 5.2 % HEMOGLOBIN [id number] 00:00:00 Test Item Value Reference Range Interpretation Comments HEMOGLOBIN A1c (test code = 24543) 5.2 % HEMOGLOBIN [id number] 00:00:00 Test Item Value Reference Range Interpretation Comments HEMOGLOBIN A1c (test code = 24236) 5.2 % LIPID [id number] 00:00:00 Test Item Value Reference Range Interpretation Comments CHOLESTEROL (test code = 2210) 151 MG/DL TRIGLYCERIDES (test code = 2232) 286 MG/DL HDL CHOLESTEROL (test code = 2220) 27 MG/DL CALC LDL CHOL (test code = 2237) 86 MG/DL RISK RATIO LDL/HDL (test code = 3.19 RATIO 2238) LIPID [id number] 00:00:00 Test Item Value Reference Range Interpretation Comments CHOLESTEROL (test code = 2210) 151 MG/DL TRIGLYCERIDES (test code = 2232) 286 MG/DL HDL CHOLESTEROL (test code = 2220) 27 MG/DL CALC LDL CHOL (test code = 2237) 86 MG/DL RISK RATIO LDL/HDL (test code = 3.19 RATIO 2238) COMPREHENSIVE METABOLIC [id number] 00:00:00 Test Item Value Reference Range Interpretation Comments GLUCOSE (test code = 2217) 102 MG/DL BUN (test code = 2208) 10 MG/DL CREATININE (test code = 2214) 0.80 MG/DL eGFR AMER. (test code 96 ML/MIN/1.73 = 51534) eGFR NON- AMER. (test 83 ML/MIN/1.73 code = 56245) CALC BUN/CREAT (test code = 13 RATIO 2235) SODIUM (test code = 2231) 141 MEQ/L POTASSIUM (test code = 2228) 4.6 MEQ/L CHLORIDE (test code = 2215) 103 MEQ/L CARBON DIOXIDE (test code = 29 MEQ/L 2206) CALCIUM (test code = 2209) 9.8 MG/DL PROTEIN, TOTAL (test code = 7.1 G/DL 2228) ALBUMIN (test code = 2201) 4.4 G/DL CALC GLOBULIN (test code = 2.7 G/DL 2239) CALC A/G RATIO (test code = 1.6 RATIO 2234) BILIRUBIN, TOTAL (test code = 0.7 MG/DL 2206) ALKALINE PHOSPHATASE (test 166 U/L code = 2204) AST (test code = 2218) 15 U/L ALT (test code = 2219) 14 U/L COMPREHENSIVE METABOLIC [id number] 00:00:00 Test Item Value Reference Range Interpretation Comments GLUCOSE (test code = 2217) 102 MG/DL BUN (test code = 2208) 10 MG/DL CREATININE (test code = 2214) 0.80 MG/DL eGFR AMER. (test code 96 ML/MIN/1.73 = 63428) eGFR NON- AMER. (test 83 ML/MIN/1.73 code = 37418) CALC BUN/CREAT (test code = 13 RATIO 2235) SODIUM (test code = 2231) 141 MEQ/L POTASSIUM (test code = 2228) 4.6 MEQ/L CHLORIDE (test code = 2215) 103 MEQ/L CARBON DIOXIDE (test code = 29 MEQ/L 2206) CALCIUM (test code = 2209) 9.8 MG/DL PROTEIN, TOTAL (test code = 7.1 G/DL 2228) ALBUMIN (test code = 2201) 4.4 G/DL CALC GLOBULIN (test code = 2.7 G/DL 2240) CALC A/G RATIO (test code = 1.6 RATIO 2234) BILIRUBIN, TOTAL (test code = 0.7 MG/DL 2207) ALKALINE PHOSPHATASE (test 166 U/L code = 2204) AST (test code = 2218) 15 U/L ALT (test code = 2219) 14 U/L [id number] 00:00:00 Test Item Value Reference Range Interpretation Comments TSH, THIRD GENERATION (test code 1.540 UIU/ML = 2821) [id number] 00:00:00 Test Item Value Reference Range Interpretation Comments TSH, THIRD GENERATION (test code 1.540 UIU/ML = 2821) [id number] 00:00:00 Test Item Value Reference Range Interpretation Comments TSH, THIRD GENERATION (test code 1.540 UIU/ML = 2821) VITAMIN D, 25 [id number] 00:00:00 Test Item Value Reference Range Interpretation Comments VITAMIN D, 25 OH (test code = 4958) 20 NG/ML VITAMIN D, 25 [id number] 00:00:00 Test Item Value Reference Range Interpretation Comments VITAMIN D, 25 OH (test code = 4958) 20 NG/ML CBC W/AUTO [id number] 00:00:00 Test Item Value Reference Range Interpretation Comments WBC (test code = 1001) 5.1 K/UL RBC (test code = 1002) 4.77 M/UL HEMOGLOBIN (test code = 1003) 14.6 G/DL HEMATOCRIT (test code = 1004) 43.0 % MCV (test code = 1005) 90.1 fL MCH (test code = 1006) 30.6 PG MCHC (test code = 1007) 34.0 G/DL RDW (test code = 1038) 12.5 % NEUTROPHILS (test code = 1008) 71.9 % LYMPHOCYTES (test code = 1010) 15.7 % MONOCYTES (test code = 1011) 11.2 % EOSINOPHILS (test code = 1012) 0.2 % BASOPHILS (test code = 1013) 0.8 % IMMATURE GRANULOCYTES (test 0.2 % code = 1036) NUCLEATED RBCS (test code = 0.0 /100WBC'S 1065) PLATELET COUNT (test code = 169 K/UL 1015) ABSOLUTE NEUTROPHILS (test code 3.68 K/UL = 1066) ABSOLUTE LYMPHOCYTES (test code 0.80 K/UL = 1067) ABSOLUTE MONOCYTES (test code = 0.57 K/UL 1068) ABSOLUTE EOSINOPHILS (test code 0.01 K/UL = 1040) ABSOLUTE BASOPHILS (test code = 0.04 K/UL 1069) ABS IMMATURE GRANULOCYTES (test 0.01 K/UL code = 1020) ABS NUCLEATED RBCS (test code = 0.00 K/UL 69071) CBC W/AUTO [id number] 00:00:00 Test Item Value Reference Range Interpretation Comments WBC (test code = 1001) 5.1 K/UL RBC (test code = 1002) 4.77 M/UL HEMOGLOBIN (test code = 1003) 14.6 G/DL HEMATOCRIT (test code = 1004) 43.0 % MCV (test code = 1005) 90.1 fL MCH (test code = 1006) 30.6 PG MCHC (test code = 1007) 34.0 G/DL RDW (test code = 1038) 12.5 % NEUTROPHILS (test code = 1008) 71.9 % LYMPHOCYTES (test code = 1010) 15.7 % MONOCYTES (test code = 1011) 11.2 % EOSINOPHILS (test code = 1012) 0.2 % BASOPHILS (test code = 1013) 0.8 % IMMATURE GRANULOCYTES (test 0.2 % code = 1036) NUCLEATED RBCS (test code = 0.0 /100WBC'S 1065) PLATELET COUNT (test code = 169 K/UL 1015) ABSOLUTE NEUTROPHILS (test code 3.68 K/UL = 1066) ABSOLUTE LYMPHOCYTES (test code 0.80 K/UL = 1067) ABSOLUTE MONOCYTES (test code = 0.57 K/UL 1068) ABSOLUTE EOSINOPHILS (test code 0.01 K/UL = 1040) ABSOLUTE BASOPHILS (test code = 0.04 K/UL 1069) ABS IMMATURE GRANULOCYTES (test 0.01 K/UL code = 1020) ABS NUCLEATED RBCS (test code = 0.00 K/UL 63844) CBC W/AUTO [id number] 00:00:00 Test Item Value Reference Range Interpretation Comments WBC (test code = 1001) 5.1 K/UL RBC (test code = 1002) 4.77 M/UL HEMOGLOBIN (test code = 1003) 14.6 G/DL HEMATOCRIT (test code = 1004) 43.0 % MCV (test code = 1005) 90.1 fL MCH (test code = 1006) 30.6 PG MCHC (test code = 1007) 34.0 G/DL RDW (test code = 1038) 12.5 % NEUTROPHILS (test code = 1008) 71.9 % LYMPHOCYTES (test code = 1010) 15.7 % MONOCYTES (test code = 1011) 11.2 % EOSINOPHILS (test code = 1012) 0.2 % BASOPHILS (test code = 1013) 0.8 % IMMATURE GRANULOCYTES (test 0.2 % code = 1036) NUCLEATED RBCS (test code = 0.0 /100WBC'S 1065) PLATELET COUNT (test code = 169 K/UL 1015) ABSOLUTE NEUTROPHILS (test code 3.68 K/UL = 1066) ABSOLUTE LYMPHOCYTES (test code 0.80 K/UL = 1067) ABSOLUTE MONOCYTES (test code = 0.57 K/UL 1068) ABSOLUTE EOSINOPHILS (test code 0.01 K/UL = 1040) ABSOLUTE BASOPHILS (test code = 0.04 K/UL 1069) ABS IMMATURE GRANULOCYTES (test 0.01 K/UL code = 1020) ABS NUCLEATED RBCS (test code = 0.00 K/UL 69696) HEMOGLOBIN [id number] 00:00:00 Test Item Value Reference Range Interpretation Comments HEMOGLOBIN A1c (test code = 42939) 5.2 % HEMOGLOBIN [id number] 00:00:00 Test Item Value Reference Range Interpretation Comments HEMOGLOBIN A1c (test code = 87338) 5.2 % HEMOGLOBIN [id number] 00:00:00 Test Item Value Reference Range Interpretation Comments HEMOGLOBIN A1c (test code = 36525) 5.2 % LIPID [id number] 00:00:00 Test Item Value Reference Range Interpretation Comments CHOLESTEROL (test code = 2210) 151 MG/DL TRIGLYCERIDES (test code = 2232) 286 MG/DL HDL CHOLESTEROL (test code = 2220) 27 MG/DL CALC LDL CHOL (test code = 2237) 86 MG/DL RISK RATIO LDL/HDL (test code = 3.19 RATIO 2238) LIPID [id number] 00:00:00 Test Item Value Reference Range Interpretation Comments CHOLESTEROL (test code = 2210) 151 MG/DL TRIGLYCERIDES (test code = 2232) 286 MG/DL HDL CHOLESTEROL (test code = 2220) 27 MG/DL CALC LDL CHOL (test code = 2237) 86 MG/DL RISK RATIO LDL/HDL (test code = 3.19 RATIO 2238) COMPREHENSIVE METABOLIC [id number] 00:00:00 Test Item Value Reference Range Interpretation Comments GLUCOSE (test code = 2217) 102 MG/DL BUN (test code = 2208) 10 MG/DL CREATININE (test code = 2214) 0.80 MG/DL eGFR AMER. (test code 96 ML/MIN/1.73 = 27504) eGFR NON- AMER. (test 83 ML/MIN/1.73 code = 67163) CALC BUN/CREAT (test code = 13 RATIO 2235) SODIUM (test code = 2231) 141 MEQ/L POTASSIUM (test code = 2228) 4.6 MEQ/L CHLORIDE (test code = 2215) 103 MEQ/L CARBON DIOXIDE (test code = 29 MEQ/L 2205) CALCIUM (test code = 2209) 9.8 MG/DL PROTEIN, TOTAL (test code = 7.1 G/DL 2228) ALBUMIN (test code = 2201) 4.4 G/DL CALC GLOBULIN (test code = 2.7 G/DL 2240) CALC A/G RATIO (test code = 1.6 RATIO 2234) BILIRUBIN, TOTAL (test code = 0.7 MG/DL 2206) ALKALINE PHOSPHATASE (test 166 U/L code = 2204) AST (test code = 2218) 15 U/L ALT (test code = 2219) 14 U/L COMPREHENSIVE METABOLIC [id number] 00:00:00 Test Item Value Reference Range Interpretation Comments GLUCOSE (test code = 2217) 102 MG/DL BUN (test code = 2208) 10 MG/DL CREATININE (test code = 2214) 0.80 MG/DL eGFR AMER. (test code 96 ML/MIN/1.73 = 18767) eGFR NON- AMER. (test 83 ML/MIN/1.73 code = 44052) CALC BUN/CREAT (test code = 13 RATIO 2235) SODIUM (test code = 2231) 141 MEQ/L POTASSIUM (test code = 2228) 4.6 MEQ/L CHLORIDE (test code = 2215) 103 MEQ/L CARBON DIOXIDE (test code = 29 MEQ/L 2205) CALCIUM (test code = 2209) 9.8 MG/DL PROTEIN, TOTAL (test code = 7.1 G/DL 2228) ALBUMIN (test code = 2201) 4.4 G/DL CALC GLOBULIN (test code = 2.7 G/DL 2239) CALC A/G RATIO (test code = 1.6 RATIO 2233) BILIRUBIN, TOTAL (test code = 0.7 MG/DL 2206) ALKALINE PHOSPHATASE (test 166 U/L code = 2204) AST (test code = 2218) 15 U/L ALT (test code = 2219) 14 U/L [id number] 00:00:00 Test Item Value Reference Range Interpretation Comments TSH, THIRD GENERATION (test code 1.540 UIU/ML = 2821) [id number] 00:00:00 Test Item Value Reference Range Interpretation Comments TSH, THIRD GENERATION (test code 1.540 UIU/ML = 2821) [id number] 00:00:00 Test Item Value Reference Range Interpretation Comments TSH, THIRD GENERATION (test code 1.540 UIU/ML = 2821) VITAMIN D, 25 [id number] 00:00:00 Test Item Value Reference Range Interpretation Comments VITAMIN D, 25 OH (test code = 4958) 20 NG/ML VITAMIN D, 25 [id number] 00:00:00 Test Item Value Reference Range Interpretation Comments VITAMIN D, 25 OH (test code = 4958) 20 NG/ML CBC W/AUTO [id number] 00:00:00 Test Item Value Reference Range Interpretation Comments WBC (test code = 1001) 5.1 K/UL RBC (test code = 1002) 4.77 M/UL HEMOGLOBIN (test code = 1003) 14.6 G/DL HEMATOCRIT (test code = 1004) 43.0 % MCV (test code = 1005) 90.1 fL MCH (test code = 1006) 30.6 PG MCHC (test code = 1007) 34.0 G/DL RDW (test code = 1038) 12.5 % NEUTROPHILS (test code = 1008) 71.9 % LYMPHOCYTES (test code = 1010) 15.7 % MONOCYTES (test code = 1011) 11.2 % EOSINOPHILS (test code = 1012) 0.2 % BASOPHILS (test code = 1013) 0.8 % IMMATURE GRANULOCYTES (test 0.2 % code = 1036) NUCLEATED RBCS (test code = 0.0 /100WBC'S 1065) PLATELET COUNT (test code = 169 K/UL 1015) ABSOLUTE NEUTROPHILS (test code 3.68 K/UL = 1066) ABSOLUTE LYMPHOCYTES (test code 0.80 K/UL = 1067) ABSOLUTE MONOCYTES (test code = 0.57 K/UL 1068) ABSOLUTE EOSINOPHILS (test code 0.01 K/UL = 1040) ABSOLUTE BASOPHILS (test code = 0.04 K/UL 1069) ABS IMMATURE GRANULOCYTES (test 0.01 K/UL code = 1020) ABS NUCLEATED RBCS (test code = 0.00 K/UL 71274) SCR MAMM BILATERAL SARAH CAD [id number] 10:14:45 - SCR MAMM BILATERAL SARAH CAD DIGITALBILATERAL DIGITAL SCREENING MAMMOGRAM 3D/2D WITH CAD: 06/28/2020C LINICAL: Asymptomatic. Digital breast tomosynthesis was performed in addition to routine CC and MLO views. Current mammographic images were evaluated by either a [employer] M-Vu or a [employer] ImageChecker CAD (computer aided detection system). Comparison is made to exams dated 12/20/2018 mammogram - [facility] and 02/02/2012 mammogram - [facility]. The tissue of both breasts [...] 07/05/2020 10:14:45Imaging Technologist: Zunilda Armstrong MM, [facility] M ammographyletter sent: BIRADS 1-2 Normal Mammogram BI-RADS: 1 [id number] (COVID-19) by RT-PCR (HIGH RISK)2020-06-05 00:00:00 Test Item Value Reference Range Interpretation Comments SARS-CoV-2 INTERPRETATION (test NEGATIVE code = 06389) SOURCE (test code = 96610) NOT SPECIFIED SARS-CoV-2 (COVID-19) by RT-PCR (HIGH RISK)2020-06-05 00:00:00 Test Item Value Reference Range Interpretation Comments SARS-CoV-2 INTERPRETATION (test NEGATIVE code = 34808) SOURCE (test code = 95806) NOT SPECIFIED SARS-CoV-2 (COVID-19) by RT-PCR (HIGH RISK)2020-06-05 00:00:00 Test Item Value Reference Range Interpretation Comments SARS-CoV-2 INTERPRETATION (test NEGATIVE code = 00144) SOURCE (test code = 07339) NOT SPECIFIED SARS-CoV-2 (COVID-19) by RT-PCR (HIGH RISK)2020-06-05 00:00:00 Test Item Value Reference Range Interpretation Comments SARS-CoV-2 INTERPRETATION (test NEGATIVE code = 70729) SOURCE (test code = 78282) NOT SPECIFIED SARS-CoV-2 (COVID-19) by RT-PCR (HIGH RISK)2020-06-05 00:00:00 Test Item Value Reference Range Interpretation Comments SARS-CoV-2 INTERPRETATION (test NEGATIVE code = 22463) SOURCE (test code = 11479) NOT SPECIFIED SARS-CoV-2 (COVID-19) by RT-PCR (HIGH RISK)2020-06-05 00:00:00 Test Item Value Reference Range Interpretation Comments SARS-CoV-2 INTERPRETATION (test NEGATIVE code = 87085) SOURCE (test code = 77173) NOT SPECIFIED SARS-CoV-2 (COVID-19) by RT-PCR (HIGH RISK)2020-06-05 00:00:00 Test Item Value Reference Range Interpretation Comments SARS-CoV-2 INTERPRETATION (test NEGATIVE code = 92097) SOURCE (test code = 87928) NOT SPECIFIED SARS-CoV-2 (COVID-19) by RT-PCR (HIGH RISK)2020-06-05 00:00:00 Test Item Value Reference Range Interpretation Comments SARS-CoV-2 INTERPRETATION (test NEGATIVE code = 26235) SOURCE (test code = 22987) NOT SPECIFIED SARS-CoV-2 (COVID-19) by RT-PCR (HIGH RISK)2020-06-05 00:00:00 Test Item Value Reference Range Interpretation Comments SARS-CoV-2 INTERPRETATION (test NEGATIVE code = 44268) SOURCE (test code = 86728) NOT SPECIFIED SARS-CoV-2 (COVID-19) by RT-PCR (HIGH RISK)2020-06-05 00:00:00 Test Item Value Reference Range Interpretation Comments SARS-CoV-2 INTERPRETATION (test NEGATIVE code = 61924) SOURCE (test code = 72250) NOT SPECIFIED SARS-CoV-2 (COVID-19) by RT-PCR (HIGH RISK)2020-06-05 00:00:00 Test Item Value Reference Range Interpretation Comments SARS-CoV-2 INTERPRETATION (test NEGATIVE code = 11236) SOURCE (test code = 48045) NOT SPECIFIED HCV RNA, PCR [id number] 00:00:00 Test Item Value Reference Range Interpretation Comments HCV RNA, PCR QUANT Not Detected IU/mL (test code = 4571) HCV VIRAL LOG (test Not Detected logIU/mL code = 12487) HCV RNA, PCR [id number] 00:00:00 Test Item Value Reference Range Interpretation Comments HCV RNA, PCR QUANT Not Detected IU/mL (test code = 4571) HCV VIRAL LOG (test Not Detected logIU/mL code = 34817) HCV RNA, PCR [id number] 00:00:00 Test Item Value Reference Range Interpretation Comments HCV RNA, PCR QUANT Not Detected IU/mL (test code = 4571) HCV VIRAL LOG (test Not Detected logIU/mL code = 61774) HCV RNA, PCR [id number] 00:00:00 Test Item Value Reference Range Interpretation Comments HCV RNA, PCR QUANT Not Detected IU/mL (test code = 4571) HCV VIRAL LOG (test Not Detected logIU/mL code = 09060) HCV RNA, PCR [id number] 00:00:00 Test Item Value Reference Range Interpretation Comments HCV RNA, PCR QUANT Not Detected IU/mL (test code = 4571) HCV VIRAL LOG (test Not Detected logIU/mL code = 20813) HCV RNA, PCR [id number] 00:00:00 Test Item Value Reference Range Interpretation Comments HCV RNA, PCR QUANT Not Detected IU/mL (test code = 4571) HCV VIRAL LOG (test Not Detected logIU/mL code = 86641) HCV RNA, PCR [id number] 00:00:00 Test Item Value Reference Range Interpretation Comments HCV RNA, PCR QUANT Not Detected IU/mL (test code = 4571) HCV VIRAL LOG (test Not Detected logIU/mL code = 39912) HCV RNA, PCR [id number] 00:00:00 Test Item Value Reference Range Interpretation Comments HCV RNA, PCR QUANT Not Detected IU/mL (test code = 4571) HCV VIRAL LOG (test Not Detected logIU/mL code = 64687) HCV RNA, PCR [id number] 00:00:00 Test Item Value Reference Range Interpretation Comments HCV RNA, PCR QUANT Not Detected IU/mL (test code = 4571) HCV VIRAL LOG (test Not Detected logIU/mL code = 70329) HCV RNA, PCR [id number] 00:00:00 Test Item Value Reference Range Interpretation Comments HCV RNA, PCR QUANT Not Detected IU/mL (test code = 4571) HCV VIRAL LOG (test Not Detected logIU/mL code = 08232) HCV RNA, PCR [id number] 00:00:00 Test Item Value Reference Range Interpretation Comments HCV RNA, PCR QUANT Not Detected IU/mL (test code = 4571) HCV VIRAL LOG (test Not Detected logIU/mL code = 69608) HCV RNA, PCR [id number] 00:00:00 Test Item Value Reference Range Interpretation Comments HCV RNA, PCR QUANT Not Detected IU/mL (test code = 4571) HCV VIRAL LOG (test Not Detected logIU/mL code = 37267) HCV RNA, PCR [id number] 00:00:00 Test Item Value Reference Range Interpretation Comments HCV RNA, PCR QUANT Not Detected IU/mL (test code = 4571) HCV VIRAL LOG (test Not Detected logIU/mL code = 28666) HCV RNA, PCR [id number] 00:00:00 Test Item Value Reference Range Interpretation Comments HCV RNA, PCR QUANT Not Detected IU/mL (test code = 4571) HCV VIRAL LOG (test Not Detected logIU/mL code = 17062) HCV RNA, PCR [id number] 00:00:00 Test Item Value Reference Range Interpretation Comments HCV RNA, PCR QUANT Not Detected IU/mL (test code = 4571) HCV VIRAL LOG (test Not Detected logIU/mL code = 01535) HCV RNA, PCR [id number] 00:00:00 Test Item Value Reference Range Interpretation Comments HCV RNA, PCR QUANT Not Detected IU/mL (test code = 4571) HCV VIRAL LOG (test Not Detected logIU/mL code = 88832) HCV RNA, PCR [id number] 00:00:00 Test Item Value Reference Range Interpretation Comments HCV RNA, PCR QUANT Not Detected IU/mL (test code = 4571) HCV VIRAL LOG (test Not Detected logIU/mL code = 06193) LIVER (HEPATIC) FUNCTION [id number] 00:00:00 Test Item Value Reference Range Interpretation Comments PROTEIN, TOTAL (test code = 2229) 6.6 G/DL ALBUMIN (test code = 2201) 4.0 G/DL BILIRUBIN, TOTAL (test code = 2207) 0.4 MG/DL BILIRUBIN, DIRECT (test code = 0.1 MG/DL 2021) ALKALINE PHOSPHATASE (test code = 137 U/L 2203) AST (test code = 2218) 13 U/L ALT (test code = 2219) 12 U/L LIVER (HEPATIC) FUNCTION [id number] 00:00:00 Test Item Value Reference Range Interpretation Comments PROTEIN, TOTAL (test code = 2229) 6.6 G/DL ALBUMIN (test code = 2201) 4.0 G/DL BILIRUBIN, TOTAL (test code = 2207) 0.4 MG/DL BILIRUBIN, DIRECT (test code = 0.1 MG/DL 2021) ALKALINE PHOSPHATASE (test code = 137 U/L 2203) AST (test code = 2218) 13 U/L ALT (test code = 2219) 12 U/L LIVER (HEPATIC) FUNCTION [id number] 00:00:00 Test Item Value Reference Range Interpretation Comments PROTEIN, TOTAL (test code = 2229) 6.6 G/DL ALBUMIN (test code = 2201) 4.0 G/DL BILIRUBIN, TOTAL (test code = 2207) 0.4 MG/DL BILIRUBIN, DIRECT (test code = 0.1 MG/DL 2021) ALKALINE PHOSPHATASE (test code = 137 U/L 2203) AST (test code = 2218) 13 U/L ALT (test code = 2219) 12 U/L LIVER (HEPATIC) FUNCTION [id number] 00:00:00 Test Item Value Reference Range Interpretation Comments PROTEIN, TOTAL (test code = 2229) 6.6 G/DL ALBUMIN (test code = 2201) 4.0 G/DL BILIRUBIN, TOTAL (test code = 2207) 0.4 MG/DL BILIRUBIN, DIRECT (test code = 0.1 MG/DL 2021) ALKALINE PHOSPHATASE (test code = 137 U/L 2203) AST (test code = 2218) 13 U/L ALT (test code = 2219) 12 U/L LIVER (HEPATIC) FUNCTION [id number] 00:00:00 Test Item Value Reference Range Interpretation Comments PROTEIN, TOTAL (test code = 2229) 6.6 G/DL ALBUMIN (test code = 2201) 4.0 G/DL BILIRUBIN, TOTAL (test code = 2207) 0.4 MG/DL BILIRUBIN, DIRECT (test code = 0.1 MG/DL 2021) ALKALINE PHOSPHATASE (test code = 137 U/L 2203) AST (test code = 2218) 13 U/L ALT (test code = 2219) 12 U/L LIVER (HEPATIC) FUNCTION [id number] 00:00:00 Test Item Value Reference Range Interpretation Comments PROTEIN, TOTAL (test code = 2229) 6.6 G/DL ALBUMIN (test code = 2201) 4.0 G/DL BILIRUBIN, TOTAL (test code = 2207) 0.4 MG/DL BILIRUBIN, DIRECT (test code = 0.1 MG/DL 2021) ALKALINE PHOSPHATASE (test code = 137 U/L 2203) AST (test code = 2218) 13 U/L ALT (test code = 2219) 12 U/L LIVER (HEPATIC) FUNCTION [id number] 00:00:00 Test Item Value Reference Range Interpretation Comments PROTEIN, TOTAL (test code = 2229) 6.6 G/DL ALBUMIN (test code = 2201) 4.0 G/DL BILIRUBIN, TOTAL (test code = 2207) 0.4 MG/DL BILIRUBIN, DIRECT (test code = 0.1 MG/DL 2021) ALKALINE PHOSPHATASE (test code = 137 U/L 2203) AST (test code = 2218) 13 U/L ALT (test code = 2219) 12 U/L LIVER (HEPATIC) FUNCTION [id number] 00:00:00 Test Item Value Reference Range Interpretation Comments PROTEIN, TOTAL (test code = 2229) 6.6 G/DL ALBUMIN (test code = 2201) 4.0 G/DL BILIRUBIN, TOTAL (test code = 2207) 0.4 MG/DL BILIRUBIN, DIRECT (test code = 0.1 MG/DL 2021) ALKALINE PHOSPHATASE (test code = 137 U/L 2203) AST (test code = 2218) 13 U/L ALT (test code = 2219) 12 U/L LIVER (HEPATIC) FUNCTION [id number] 00:00:00 Test Item Value Reference Range Interpretation Comments PROTEIN, TOTAL (test code = 2229) 6.6 G/DL ALBUMIN (test code = 2201) 4.0 G/DL BILIRUBIN, TOTAL (test code = 2207) 0.4 MG/DL BILIRUBIN, DIRECT (test code = 0.1 MG/DL 2021) ALKALINE PHOSPHATASE (test code = 137 U/L 2203) AST (test code = 2218) 13 U/L ALT (test code = 2219) 12 U/L LIVER (HEPATIC) FUNCTION [id number] 00:00:00 Test Item Value Reference Range Interpretation Comments PROTEIN, TOTAL (test code = 2229) 6.6 G/DL ALBUMIN (test code = 2201) 4.0 G/DL BILIRUBIN, TOTAL (test code = 2207) 0.4 MG/DL BILIRUBIN, DIRECT (test code = 0.1 MG/DL 2021) ALKALINE PHOSPHATASE (test code = 137 U/L 2203) AST (test code = 2218) 13 U/L ALT (test code = 2219) 12 U/L LIVER (HEPATIC) FUNCTION [id number] 00:00:00 Test Item Value Reference Range Interpretation Comments PROTEIN, TOTAL (test code = 2229) 6.6 G/DL ALBUMIN (test code = 2201) 4.0 G/DL BILIRUBIN, TOTAL (test code = 2207) 0.4 MG/DL BILIRUBIN, DIRECT (test code = 0.1 MG/DL 2021) ALKALINE PHOSPHATASE (test code = 137 U/L 2203) AST (test code = 2218) 13 U/L ALT (test code = 2219) 12 U/L HCV RNA, PCR [id number] 00:00:00 Test Item Value Reference Range Interpretation Comments HCV RNA, PCR QUANT (test NOT DETEC IU/ML code = 4571) HCV VIRAL LOG (test code = NOT DETEC LOGIU/ML 46031) HCV RNA, PCR [id number] 00:00:00 Test Item Value Reference Range Interpretation Comments HCV RNA, PCR QUANT (test NOT DETEC IU/ML code = 4571) HCV VIRAL LOG (test code = NOT DETEC LOGIU/ML 67849) HCV RNA, PCR [id number] 00:00:00 Test Item Value Reference Range Interpretation Comments HCV RNA, PCR QUANT (test NOT DETEC IU/ML code = 4571) HCV VIRAL LOG (test code = NOT DETEC LOGIU/ML 15562) HCV RNA, PCR [id number] 00:00:00 Test Item Value Reference Range Interpretation Comments HCV RNA, PCR QUANT (test NOT DETEC IU/ML code = 4571) HCV VIRAL LOG (test code = NOT DETEC LOGIU/ML 07555) HCV RNA, PCR [id number] 00:00:00 Test Item Value Reference Range Interpretation Comments HCV RNA, PCR QUANT (test NOT DETEC IU/ML code = 4571) HCV VIRAL LOG (test code = NOT DETEC LOGIU/ML 08977) HCV RNA, PCR [id number] 00:00:00 Test Item Value Reference Range Interpretation Comments HCV RNA, PCR QUANT (test NOT DETEC IU/ML code = 4571) HCV VIRAL LOG (test code = NOT DETEC LOGIU/ML 08639) HCV RNA, PCR [id number] 00:00:00 Test Item Value Reference Range Interpretation Comments HCV RNA, PCR QUANT (test NOT DETEC IU/ML code = 4571) HCV VIRAL LOG (test code = NOT DETEC LOGIU/ML 24123) HCV RNA, PCR [id number] 00:00:00 Test Item Value Reference Range Interpretation Comments HCV RNA, PCR QUANT (test NOT DETEC IU/ML code = 4571) HCV VIRAL LOG (test code = NOT DETEC LOGIU/ML 50233) HCV RNA, PCR [id number] 00:00:00 Test Item Value Reference Range Interpretation Comments HCV RNA, PCR QUANT (test NOT DETEC IU/ML code = 4571) HCV VIRAL LOG (test code = NOT DETEC LOGIU/ML 83897) HCV RNA, PCR [id number] 00:00:00 Test Item Value Reference Range Interpretation Comments HCV RNA, PCR QUANT (test NOT DETEC IU/ML code = 4571) HCV VIRAL LOG (test code = NOT DETEC LOGIU/ML 83411) HCV RNA, PCR [id number] 00:00:00 Test Item Value Reference Range Interpretation Comments HCV RNA, PCR QUANT (test NOT DETEC IU/ML code = 4571) HCV VIRAL LOG (test code = NOT DETEC LOGIU/ML 74043) HCV RNA, PCR [id number] 00:00:00 Test Item Value Reference Range Interpretation Comments HCV RNA, PCR QUANT (test NOT DETEC IU/ML code = 4571) HCV VIRAL LOG (test code = NOT DETEC LOGIU/ML 61548) HCV RNA, PCR [id number] 00:00:00 Test Item Value Reference Range Interpretation Comments HCV RNA, PCR QUANT (test NOT DETEC IU/ML code = 4571) HCV VIRAL LOG (test code = NOT DETEC LOGIU/ML 47190) HCV RNA, PCR [id number] 00:00:00 Test Item Value Reference Range Interpretation Comments HCV RNA, PCR QUANT (test NOT DETEC IU/ML code = 4571) HCV VIRAL LOG (test code = NOT DETEC LOGIU/ML 76578) HCV RNA, PCR [id number] 00:00:00 Test Item Value Reference Range Interpretation Comments HCV RNA, PCR QUANT (test NOT DETEC IU/ML code = 4571) HCV VIRAL LOG (test code = NOT DETEC LOGIU/ML 21440) HCV RNA, PCR [id number] 00:00:00 Test Item Value Reference Range Interpretation Comments HCV RNA, PCR QUANT (test NOT DETEC IU/ML code = 4571) HCV VIRAL LOG (test code = NOT DETEC LOGIU/ML 70396) HCV RNA, PCR [id number] 00:00:00 Test Item Value Reference Range Interpretation Comments HCV RNA, PCR QUANT (test NOT DETEC IU/ML code = 4571) HCV VIRAL LOG (test code = NOT DETEC LOGIU/ML 90112) LIVER (HEPATIC) FUNCTION [id number] 00:00:00 Test Item Value Reference Range Interpretation Comments PROTEIN, TOTAL (test code = 2229) 7.1 G/DL ALBUMIN (test code = 2201) 4.3 G/DL BILIRUBIN, TOTAL (test code = 2207) 0.3 MG/DL BILIRUBIN, DIRECT (test code = 0.1 MG/DL 2021) ALKALINE PHOSPHATASE (test code = 148 U/L 2203) AST (test code = 2218) 15 U/L ALT (test code = 2219) 7 U/L LIVER (HEPATIC) FUNCTION [id number] 00:00:00 Test Item Value Reference Range Interpretation Comments PROTEIN, TOTAL (test code = 2229) 7.1 G/DL ALBUMIN (test code = 2201) 4.3 G/DL BILIRUBIN, TOTAL (test code = 2207) 0.3 MG/DL BILIRUBIN, DIRECT (test code = 0.1 MG/DL 2021) ALKALINE PHOSPHATASE (test code = 148 U/L 2203) AST (test code = 2218) 15 U/L ALT (test code = 2219) 7 U/L LIVER (HEPATIC) FUNCTION [id number] 00:00:00 Test Item Value Reference Range Interpretation Comments PROTEIN, TOTAL (test code = 2229) 7.1 G/DL ALBUMIN (test code = 2201) 4.3 G/DL BILIRUBIN, TOTAL (test code = 2207) 0.3 MG/DL BILIRUBIN, DIRECT (test code = 0.1 MG/DL 2021) ALKALINE PHOSPHATASE (test code = 148 U/L 2203) AST (test code = 2218) 15 U/L ALT (test code = 2219) 7 U/L LIVER (HEPATIC) FUNCTION [id number] 00:00:00 Test Item Value Reference Range Interpretation Comments PROTEIN, TOTAL (test code = 2229) 7.1 G/DL ALBUMIN (test code = 2201) 4.3 G/DL BILIRUBIN, TOTAL (test code = 2207) 0.3 MG/DL BILIRUBIN, DIRECT (test code = 0.1 MG/DL 2021) ALKALINE PHOSPHATASE (test code = 148 U/L 2203) AST (test code = 2218) 15 U/L ALT (test code = 2219) 7 U/L LIVER (HEPATIC) FUNCTION [id number] 00:00:00 Test Item Value Reference Range Interpretation Comments PROTEIN, TOTAL (test code = 2229) 7.1 G/DL ALBUMIN (test code = 2201) 4.3 G/DL BILIRUBIN, TOTAL (test code = 2207) 0.3 MG/DL BILIRUBIN, DIRECT (test code = 0.1 MG/DL 2021) ALKALINE PHOSPHATASE (test code = 148 U/L 2203) AST (test code = 2218) 15 U/L ALT (test code = 2219) 7 U/L LIVER (HEPATIC) FUNCTION [id number] 00:00:00 Test Item Value Reference Range Interpretation Comments PROTEIN, TOTAL (test code = 2229) 7.1 G/DL ALBUMIN (test code = 2201) 4.3 G/DL BILIRUBIN, TOTAL (test code = 2207) 0.3 MG/DL BILIRUBIN, DIRECT (test code = 0.1 MG/DL 2021) ALKALINE PHOSPHATASE (test code = 148 U/L 2203) AST (test code = 2218) 15 U/L ALT (test code = 2219) 7 U/L LIVER (HEPATIC) FUNCTION [id number] 00:00:00 Test Item Value Reference Range Interpretation Comments PROTEIN, TOTAL (test code = 2229) 7.1 G/DL ALBUMIN (test code = 2201) 4.3 G/DL BILIRUBIN, TOTAL (test code = 2207) 0.3 MG/DL BILIRUBIN, DIRECT (test code = 0.1 MG/DL 2021) ALKALINE PHOSPHATASE (test code = 148 U/L 2203) AST (test code = 2218) 15 U/L ALT (test code = 2219) 7 U/L LIVER (HEPATIC) FUNCTION [id number] 00:00:00 Test Item Value Reference Range Interpretation Comments PROTEIN, TOTAL (test code = 2229) 7.1 G/DL ALBUMIN (test code = 2201) 4.3 G/DL BILIRUBIN, TOTAL (test code = 2207) 0.3 MG/DL BILIRUBIN, DIRECT (test code = 0.1 MG/DL 2021) ALKALINE PHOSPHATASE (test code = 148 U/L 2203) AST (test code = 2218) 15 U/L ALT (test code = 2219) 7 U/L LIVER (HEPATIC) FUNCTION [id number] 00:00:00 Test Item Value Reference Range Interpretation Comments PROTEIN, TOTAL (test code = 2229) 7.1 G/DL ALBUMIN (test code = 2201) 4.3 G/DL BILIRUBIN, TOTAL (test code = 2207) 0.3 MG/DL BILIRUBIN, DIRECT (test code = 0.1 MG/DL 2021) ALKALINE PHOSPHATASE (test code = 148 U/L 2203) AST (test code = 2218) 15 U/L ALT (test code = 2219) 7 U/L LIVER (HEPATIC) FUNCTION [id number] 00:00:00 Test Item Value Reference Range Interpretation Comments PROTEIN, TOTAL (test code = 2229) 7.1 G/DL ALBUMIN (test code = 2201) 4.3 G/DL BILIRUBIN, TOTAL (test code = 2207) 0.3 MG/DL BILIRUBIN, DIRECT (test code = 0.1 MG/DL 2021) ALKALINE PHOSPHATASE (test code = 148 U/L 2203) AST (test code = 2218) 15 U/L ALT (test code = 2219) 7 U/L LIVER (HEPATIC) FUNCTION [id number] 00:00:00 Test Item Value Reference Range Interpretation Comments PROTEIN, TOTAL (test code = 2229) 7.1 G/DL ALBUMIN (test code = 2201) 4.3 G/DL BILIRUBIN, TOTAL (test code = 2207) 0.3 MG/DL BILIRUBIN, DIRECT (test code = 0.1 MG/DL 2021) ALKALINE PHOSPHATASE (test code = 148 U/L 2203) AST (test code = 2218) 15 U/L ALT (test code = 2219) 7 U/L HEPATITIS C [id number] 00:00:00 Test Item Value Reference Range Interpretation Comments HEPATITIS C GENOTYPE (test code = 1a 27045) HEPATITIS C [id number] 00:00:00 Test Item Value Reference Range Interpretation Comments HEPATITIS C GENOTYPE (test code = 1a 97364) HEPATITIS C [id number] 00:00:00 Test Item Value Reference Range Interpretation Comments HEPATITIS C GENOTYPE (test code = 1a 90370) HEPATITIS C [id number] 00:00:00 Test Item Value Reference Range Interpretation Comments HEPATITIS C GENOTYPE (test code = 1a 66076) HEPATITIS C [id number] 00:00:00 Test Item Value Reference Range Interpretation Comments HEPATITIS C GENOTYPE (test code = 1a 00703) HEPATITIS C [id number] 00:00:00 Test Item Value Reference Range Interpretation Comments HEPATITIS C GENOTYPE (test code = 1a 53169) HEPATITIS C [id number] 00:00:00 Test Item Value Reference Range Interpretation Comments HEPATITIS C GENOTYPE (test code = 1a 84389) HEPATITIS C [id number] 00:00:00 Test Item Value Reference Range Interpretation Comments HEPATITIS C GENOTYPE (test code = 1a 93277) HEPATITIS C [id number] 00:00:00 Test Item Value Reference Range Interpretation Comments HEPATITIS C GENOTYPE (test code = 1a 33764) HEPATITIS C [id number] 00:00:00 Test Item Value Reference Range Interpretation Comments HEPATITIS C GENOTYPE (test code = 1a 07066) HEPATITIS C [id number] 00:00:00 Test Item Value Reference Range Interpretation Comments HEPATITIS C GENOTYPE (test code = 1a 41162) HEPATITIS Bs AB [id number] 00:00:00 Test Item Value Reference Range Interpretation Comments HEPATITIS Bs AB QUANT (test code 0.05 MIU/ML = 2738) HEPATITIS Bs AB [id number] 00:00:00 Test Item Value Reference Range Interpretation Comments HEPATITIS Bs AB QUANT (test code 0.05 MIU/ML = 2738) MITOCHONDRIAL M2 [id number] 00:00:00 Test Item Value Reference Range Interpretation Comments MITOCHONDRIAL M2 AB (test code = 30.9 UNITS 4634) ALKALINE PHOSPHATASE [id number] 00:00:00 Test Item Value Reference Range Interpretation Comments ALKALINE PHOSPHATASE (test code = 196 U/L 55788) ALK PHOS, LIVER 1% (test code = 37.3 % 78459) ALK PHOS, LIVER 1 ABS (test code = 73.1 U/L 89695) ALK PHOS, LIVER 2% (test code = 4.5 % 35746) ALK PHOS, LIVER 2 ABS (test code = 8.8 U/L 47696) ALK PHOS, BONE % (test code = 18817) 44.0 % ALK PHOS, BONE ABS (test code = 86.2 U/L 26404) ALK PHOS, INTESTINE % (test code = 14.2 % 40703) ALK PHOS, INTESTINE ABS (test code = 27.8 U/L 282942) ALK PHOS, PLACENTAL % (test code = 0.0 % 439166) ALK PHOS, PLACENTAL ABS (test code = 0.0 U/L 579753) ALKALINE PHOSPHATASE [id number] 00:00:00 Test Item Value Reference Range Interpretation Comments ALKALINE PHOSPHATASE (test code = 196 U/L 87024) ALK PHOS, LIVER 1% (test code = 37.3 % 51412) ALK PHOS, LIVER 1 ABS (test code = 73.1 U/L 59813) ALK PHOS, LIVER 2% (test code = 4.5 % 08730) ALK PHOS, LIVER 2 ABS (test code = 8.8 U/L 14012) ALK PHOS, BONE % (test code = 03762) 44.0 % ALK PHOS, BONE ABS (test code = 86.2 U/L 53720) ALK PHOS, INTESTINE % (test code = 14.2 % 19933) ALK PHOS, INTESTINE ABS (test code = 27.8 U/L 913103) ALK PHOS, PLACENTAL % (test code = 0.0 % 815312) ALK PHOS, PLACENTAL ABS (test code = 0.0 U/L 475058) HIV AB/AG COMBO RFLX [id number] 00:00:00 Test Item Value Reference Range Interpretation Comments HIV 1/2 4TH GEN, RFLX CONF (test NON-REACTIVE code = 3514) HEP B CORE TOTAL [id number] 00:00:00 Test Item Value Reference Range Interpretation Comments HEP B CORE TOTAL AB (test code = NON-REACTIVE 2729) HEP B CORE TOTAL [id number] 00:00:00 Test Item Value Reference Range Interpretation Comments HEP B CORE TOTAL AB (test code = NON-REACTIVE 2729) HEP B CORE TOTAL [id number] 00:00:00 Test Item Value Reference Range Interpretation Comments HEP B CORE TOTAL AB (test code = NON-REACTIVE 2729) HEPATITIS Bs AB [id number] 00:00:00 Test Item Value Reference Range Interpretation Comments HEPATITIS Bs AB QUANT (test code 0.05 MIU/ML = 2738) HEPATITIS Bs AB [id number] 00:00:00 Test Item Value Reference Range Interpretation Comments HEPATITIS Bs AB QUANT (test code 0.05 MIU/ML = 2738) HEPATITIS Bs AB [id number] 00:00:00 Test Item Value Reference Range Interpretation Comments HEPATITIS Bs AB QUANT (test code 0.05 MIU/ML = 2738) MITOCHONDRIAL M2 [id number] 00:00:00 Test Item Value Reference Range Interpretation Comments MITOCHONDRIAL M2 AB (test code = 30.9 UNITS 4634) MITOCHONDRIAL M2 [id number] 00:00:00 Test Item Value Reference Range Interpretation Comments MITOCHONDRIAL M2 AB (test code = 30.9 UNITS 4634) ALKALINE PHOSPHATASE [id number] 00:00:00 Test Item Value Reference Range Interpretation Comments ALKALINE PHOSPHATASE (test code = 196 U/L 54096) ALK PHOS, LIVER 1% (test code = 37.3 % 45262) ALK PHOS, LIVER 1 ABS (test code = 73.1 U/L 53125) ALK PHOS, LIVER 2% (test code = 4.5 % 04882) ALK PHOS, LIVER 2 ABS (test code = 8.8 U/L 79563) ALK PHOS, BONE % (test code = 45551) 44.0 % ALK PHOS, BONE ABS (test code = 86.2 U/L 22069) ALK PHOS, INTESTINE % (test code = 14.2 % 12169) ALK PHOS, INTESTINE ABS (test code = 27.8 U/L 754849) ALK PHOS, PLACENTAL % (test code = 0.0 % 998944) ALK PHOS, PLACENTAL ABS (test code = 0.0 U/L 221026) ALKALINE PHOSPHATASE [id number] 00:00:00 Test Item Value Reference Range Interpretation Comments ALKALINE PHOSPHATASE (test code = 196 U/L 66661) ALK PHOS, LIVER 1% (test code = 37.3 % 15818) ALK PHOS, LIVER 1 ABS (test code = 73.1 U/L 00811) ALK PHOS, LIVER 2% (test code = 4.5 % 03739) ALK PHOS, LIVER 2 ABS (test code = 8.8 U/L 27094) ALK PHOS, BONE % (test code = 54544) 44.0 % ALK PHOS, BONE ABS (test code = 86.2 U/L 47769) ALK PHOS, INTESTINE % (test code = 14.2 % 88921) ALK PHOS, INTESTINE ABS (test code = 27.8 U/L 035966) ALK PHOS, PLACENTAL % (test code = 0.0 % 990757) ALK PHOS, PLACENTAL ABS (test code = 0.0 U/L 490941) ALKALINE PHOSPHATASE [id number] 00:00:00 Test Item Value Reference Range Interpretation Comments ALKALINE PHOSPHATASE (test code = 196 U/L 87395) ALK PHOS, LIVER 1% (test code = 37.3 % 47166) ALK PHOS, LIVER 1 ABS (test code = 73.1 U/L 57544) ALK PHOS, LIVER 2% (test code = 4.5 % 08482) ALK PHOS, LIVER 2 ABS (test code = 8.8 U/L 23111) ALK PHOS, BONE % (test code = 11379) 44.0 % ALK PHOS, BONE ABS (test code = 86.2 U/L 98535) ALK PHOS, INTESTINE % (test code = 14.2 % 45296) ALK PHOS, INTESTINE ABS (test code = 27.8 U/L 984968) ALK PHOS, PLACENTAL % (test code = 0.0 % 159442) ALK PHOS, PLACENTAL ABS (test code = 0.0 U/L 565006) HIV AB/AG COMBO RFLX [id number] 00:00:00 Test Item Value Reference Range Interpretation Comments HIV 1/2 4TH GEN, RFLX CONF (test NON-REACTIVE code = 3514) HIV AB/AG COMBO RFLX [id number] 00:00:00 Test Item Value Reference Range Interpretation Comments HIV 1/2 4TH GEN, RFLX CONF (test NON-REACTIVE code = 3514) HEP B CORE TOTAL [id number] 00:00:00 Test Item Value Reference Range Interpretation Comments HEP B CORE TOTAL AB (test code = NON-REACTIVE 2729) HEP B CORE TOTAL [id number] 00:00:00 Test Item Value Reference Range Interpretation Comments HEP B CORE TOTAL AB (test code = NON-REACTIVE 9) HEP B CORE TOTAL [id number] 00:00:00 Test Item Value Reference Range Interpretation Comments HEP B CORE TOTAL AB (test code = NON-REACTIVE 2729) HEPATITIS Bs AB [id number] 00:00:00 Test Item Value Reference Range Interpretation Comments HEPATITIS Bs AB QUANT (test code 0.05 MIU/ML = 2738) HEPATITIS Bs AB [id number] 00:00:00 Test Item Value Reference Range Interpretation Comments HEPATITIS Bs AB QUANT (test code 0.05 MIU/ML = 2738) HEPATITIS Bs AB [id number] 00:00:00 Test Item Value Reference Range Interpretation Comments HEPATITIS Bs AB QUANT (test code 0.05 MIU/ML = 2738) MITOCHONDRIAL M2 [id number] 00:00:00 Test Item Value Reference Range Interpretation Comments MITOCHONDRIAL M2 AB (test code = 30.9 UNITS 4634) MITOCHONDRIAL M2 [id number] 00:00:00 Test Item Value Reference Range Interpretation Comments MITOCHONDRIAL M2 AB (test code = 30.9 UNITS 4634) ALKALINE PHOSPHATASE [id number] 00:00:00 Test Item Value Reference Range Interpretation Comments ALKALINE PHOSPHATASE (test code = 196 U/L 75487) ALK PHOS, LIVER 1% (test code = 37.3 % 12507) ALK PHOS, LIVER 1 ABS (test code = 73.1 U/L 36551) ALK PHOS, LIVER 2% (test code = 4.5 % 46264) ALK PHOS, LIVER 2 ABS (test code = 8.8 U/L 48774) ALK PHOS, BONE % (test code = 54077) 44.0 % ALK PHOS, BONE ABS (test code = 86.2 U/L 83301) ALK PHOS, INTESTINE % (test code = 14.2 % 10750) ALK PHOS, INTESTINE ABS (test code = 27.8 U/L 168200) ALK PHOS, PLACENTAL % (test code = 0.0 % 058282) ALK PHOS, PLACENTAL ABS (test code = 0.0 U/L 282887) ALKALINE PHOSPHATASE [id number] 00:00:00 Test Item Value Reference Range Interpretation Comments ALKALINE PHOSPHATASE (test code = 196 U/L 92717) ALK PHOS, LIVER 1% (test code = 37.3 % 21529) ALK PHOS, LIVER 1 ABS (test code = 73.1 U/L 63932) ALK PHOS, LIVER 2% (test code = 4.5 % 35525) ALK PHOS, LIVER 2 ABS (test code = 8.8 U/L 36092) ALK PHOS, BONE % (test code = 42885) 44.0 % ALK PHOS, BONE ABS (test code = 86.2 U/L 56460) ALK PHOS, INTESTINE % (test code = 14.2 % 21019) ALK PHOS, INTESTINE ABS (test code = 27.8 U/L 908775) ALK PHOS, PLACENTAL % (test code = 0.0 % 479481) ALK PHOS, PLACENTAL ABS (test code = 0.0 U/L 086868) ALKALINE PHOSPHATASE [id number] 00:00:00 Test Item Value Reference Range Interpretation Comments ALKALINE PHOSPHATASE (test code = 196 U/L 97621) ALK PHOS, LIVER 1% (test code = 37.3 % 02084) ALK PHOS, LIVER 1 ABS (test code = 73.1 U/L 40619) ALK PHOS, LIVER 2% (test code = 4.5 % 81605) ALK PHOS, LIVER 2 ABS (test code = 8.8 U/L 62432) ALK PHOS, BONE % (test code = 06233) 44.0 % ALK PHOS, BONE ABS (test code = 86.2 U/L 59912) ALK PHOS, INTESTINE % (test code = 14.2 % 73788) ALK PHOS, INTESTINE ABS (test code = 27.8 U/L 842899) ALK PHOS, PLACENTAL % (test code = 0.0 % 839181) ALK PHOS, PLACENTAL ABS (test code = 0.0 U/L 940857) HIV AB/AG COMBO RFLX [id number] 00:00:00 Test Item Value Reference Range Interpretation Comments HIV 1/2 4TH GEN, RFLX CONF (test NON-REACTIVE code = 3514) HIV AB/AG COMBO RFLX [id number] 00:00:00 Test Item Value Reference Range Interpretation Comments HIV 1/2 4TH GEN, RFLX CONF (test NON-REACTIVE code = 3514) HEP B CORE TOTAL [id number] 00:00:00 Test Item Value Reference Range Interpretation Comments HEP B CORE TOTAL AB (test code = NON-REACTIVE 206) HEP B CORE TOTAL [id number] 00:00:00 Test Item Value Reference Range Interpretation Comments HEP B CORE TOTAL AB (test code = NON-REACTIVE 2728) HEP B CORE TOTAL [id number] 00:00:00 Test Item Value Reference Range Interpretation Comments HEP B CORE TOTAL AB (test code = NON-REACTIVE 2729) HEPATITIS Bs AB [id number] 00:00:00 Test Item Value Reference Range Interpretation Comments HEPATITIS Bs AB QUANT (test code 0.05 MIU/ML = 2738) HEPATITIS Bs AB [id number] 00:00:00 Test Item Value Reference Range Interpretation Comments HEPATITIS Bs AB QUANT (test code 0.05 MIU/ML = 2738) HEPATITIS Bs AB [id number] 00:00:00 Test Item Value Reference Range Interpretation Comments HEPATITIS Bs AB QUANT (test code 0.05 MIU/ML = 2738) MITOCHONDRIAL M2 [id number] 00:00:00 Test Item Value Reference Range Interpretation Comments MITOCHONDRIAL M2 AB (test code = 30.9 UNITS 4634) MITOCHONDRIAL M2 [id number] 00:00:00 Test Item Value Reference Range Interpretation Comments MITOCHONDRIAL M2 AB (test code = 30.9 UNITS 4634) ALKALINE PHOSPHATASE [id number] 00:00:00 Test Item Value Reference Range Interpretation Comments ALKALINE PHOSPHATASE (test code = 196 U/L 62074) ALK PHOS, LIVER 1% (test code = 37.3 % 87720) ALK PHOS, LIVER 1 ABS (test code = 73.1 U/L 75787) ALK PHOS, LIVER 2% (test code = 4.5 % 26066) ALK PHOS, LIVER 2 ABS (test code = 8.8 U/L 76142) ALK PHOS, BONE % (test code = 50738) 44.0 % ALK PHOS, BONE ABS (test code = 86.2 U/L 06578) ALK PHOS, INTESTINE % (test code = 14.2 % 04043) ALK PHOS, INTESTINE ABS (test code = 27.8 U/L 476935) ALK PHOS, PLACENTAL % (test code = 0.0 % 797980) ALK PHOS, PLACENTAL ABS (test code = 0.0 U/L 535326) ALKALINE PHOSPHATASE [id number] 00:00:00 Test Item Value Reference Range Interpretation Comments ALKALINE PHOSPHATASE (test code = 196 U/L 10581) ALK PHOS, LIVER 1% (test code = 37.3 % 54698) ALK PHOS, LIVER 1 ABS (test code = 73.1 U/L 98652) ALK PHOS, LIVER 2% (test code = 4.5 % 78207) ALK PHOS, LIVER 2 ABS (test code = 8.8 U/L 45187) ALK PHOS, BONE % (test code = 91952) 44.0 % ALK PHOS, BONE ABS (test code = 86.2 U/L 10450) ALK PHOS, INTESTINE % (test code = 14.2 % 54713) ALK PHOS, INTESTINE ABS (test code = 27.8 U/L 245133) ALK PHOS, PLACENTAL % (test code = 0.0 % 812946) ALK PHOS, PLACENTAL ABS (test code = 0.0 U/L 911292) ALKALINE PHOSPHATASE [id number] 00:00:00 Test Item Value Reference Range Interpretation Comments ALKALINE PHOSPHATASE (test code = 196 U/L 32429) ALK PHOS, LIVER 1% (test code = 37.3 % 78377) ALK PHOS, LIVER 1 ABS (test code = 73.1 U/L 09832) ALK PHOS, LIVER 2% (test code = 4.5 % 11358) ALK PHOS, LIVER 2 ABS (test code = 8.8 U/L 15389) ALK PHOS, BONE % (test code = 36620) 44.0 % ALK PHOS, BONE ABS (test code = 86.2 U/L 67075) ALK PHOS, INTESTINE % (test code = 14.2 % 10761) ALK PHOS, INTESTINE ABS (test code = 27.8 U/L 554850) ALK PHOS, PLACENTAL % (test code = 0.0 % 587369) ALK PHOS, PLACENTAL ABS (test code = 0.0 U/L 943920) HIV AB/AG COMBO RFLX [id number] 00:00:00 Test Item Value Reference Range Interpretation Comments HIV 1/2 4TH GEN, RFLX CONF (test NON-REACTIVE code = 3514) HIV AB/AG COMBO RFLX [id number] 00:00:00 Test Item Value Reference Range Interpretation Comments HIV 1/2 4TH GEN, RFLX CONF (test NON-REACTIVE code = 3514) HEP B CORE TOTAL [id number] 00:00:00 Test Item Value Reference Range Interpretation Comments HEP B CORE TOTAL AB (test code = NON-REACTIVE 2729) HEP B CORE TOTAL [id number] 00:00:00 Test Item Value Reference Range Interpretation Comments HEP B CORE TOTAL AB (test code = NON-REACTIVE 9) HEP B CORE TOTAL [id number] 00:00:00 Test Item Value Reference Range Interpretation Comments HEP B CORE TOTAL AB (test code = NON-REACTIVE 9) HEPATITIS Bs AB [id number] 00:00:00 Test Item Value Reference Range Interpretation Comments HEPATITIS Bs AB QUANT (test code 0.05 MIU/ML = 2738) HEPATITIS Bs AB [id number] 00:00:00 Test Item Value Reference Range Interpretation Comments HEPATITIS Bs AB QUANT (test code 0.05 MIU/ML = 2738) HEPATITIS Bs AB [id number] 00:00:00 Test Item Value Reference Range Interpretation Comments HEPATITIS Bs AB QUANT (test code 0.05 MIU/ML = 2738) MITOCHONDRIAL M2 [id number] 00:00:00 Test Item Value Reference Range Interpretation Comments MITOCHONDRIAL M2 AB (test code = 30.9 UNITS 4634) MITOCHONDRIAL M2 [id number] 00:00:00 Test Item Value Reference Range Interpretation Comments MITOCHONDRIAL M2 AB (test code = 30.9 UNITS 4634) ALKALINE PHOSPHATASE [id number] 00:00:00 Test Item Value Reference Range Interpretation Comments ALKALINE PHOSPHATASE (test code = 196 U/L 28431) ALK PHOS, LIVER 1% (test code = 37.3 % 85235) ALK PHOS, LIVER 1 ABS (test code = 73.1 U/L 82966) ALK PHOS, LIVER 2% (test code = 4.5 % 23390) ALK PHOS, LIVER 2 ABS (test code = 8.8 U/L 51053) ALK PHOS, BONE % (test code = 71165) 44.0 % ALK PHOS, BONE ABS (test code = 86.2 U/L 95946) ALK PHOS, INTESTINE % (test code = 14.2 % 39204) ALK PHOS, INTESTINE ABS (test code = 27.8 U/L 115931) ALK PHOS, PLACENTAL % (test code = 0.0 % 289393) ALK PHOS, PLACENTAL ABS (test code = 0.0 U/L 943687) ALKALINE PHOSPHATASE [id number] 00:00:00 Test Item Value Reference Range Interpretation Comments ALKALINE PHOSPHATASE (test code = 196 U/L 29970) ALK PHOS, LIVER 1% (test code = 37.3 % 08930) ALK PHOS, LIVER 1 ABS (test code = 73.1 U/L 51690) ALK PHOS, LIVER 2% (test code = 4.5 % 16177) ALK PHOS, LIVER 2 ABS (test code = 8.8 U/L 43502) ALK PHOS, BONE % (test code = 41011) 44.0 % ALK PHOS, BONE ABS (test code = 86.2 U/L 11852) ALK PHOS, INTESTINE % (test code = 14.2 % 92915) ALK PHOS, INTESTINE ABS (test code = 27.8 U/L 637300) ALK PHOS, PLACENTAL % (test code = 0.0 % 518408) ALK PHOS, PLACENTAL ABS (test code = 0.0 U/L 974258) ALKALINE PHOSPHATASE [id number] 00:00:00 Test Item Value Reference Range Interpretation Comments ALKALINE PHOSPHATASE (test code = 196 U/L 39831) ALK PHOS, LIVER 1% (test code = 37.3 % 03908) ALK PHOS, LIVER 1 ABS (test code = 73.1 U/L 29247) ALK PHOS, LIVER 2% (test code = 4.5 % 00067) ALK PHOS, LIVER 2 ABS (test code = 8.8 U/L 69852) ALK PHOS, BONE % (test code = 40059) 44.0 % ALK PHOS, BONE ABS (test code = 86.2 U/L 88483) ALK PHOS, INTESTINE % (test code = 14.2 % 36990) ALK PHOS, INTESTINE ABS (test code = 27.8 U/L 598628) ALK PHOS, PLACENTAL % (test code = 0.0 % 792923) ALK PHOS, PLACENTAL ABS (test code = 0.0 U/L 964234) HIV AB/AG COMBO RFLX [id number] 00:00:00 Test Item Value Reference Range Interpretation Comments HIV 1/2 4TH GEN, RFLX CONF (test NON-REACTIVE code = 3514) HIV AB/AG COMBO RFLX [id number] 00:00:00 Test Item Value Reference Range Interpretation Comments HIV 1/2 4TH GEN, RFLX CONF (test NON-REACTIVE code = 3514) HEP B CORE TOTAL [id number] 00:00:00 Test Item Value Reference Range Interpretation Comments HEP B CORE TOTAL AB (test code = NON-REACTIVE 2729) HEP B CORE TOTAL [id number] 00:00:00 Test Item Value Reference Range Interpretation Comments HEP B CORE TOTAL AB (test code = NON-REACTIVE 2729) HEP B CORE TOTAL [id number] 00:00:00 Test Item Value Reference Range Interpretation Comments HEP B CORE TOTAL AB (test code = NON-REACTIVE 2729) HEPATITIS Bs AB [id number] 00:00:00 Test Item Value Reference Range Interpretation Comments HEPATITIS Bs AB QUANT (test code 0.05 MIU/ML = 2738) HEPATITIS Bs AB [id number] 00:00:00 Test Item Value Reference Range Interpretation Comments HEPATITIS Bs AB QUANT (test code 0.05 MIU/ML = 2738) HEPATITIS Bs AB [id number] 00:00:00 Test Item Value Reference Range Interpretation Comments HEPATITIS Bs AB QUANT (test code 0.05 MIU/ML = 2738) MITOCHONDRIAL M2 [id number] 00:00:00 Test Item Value Reference Range Interpretation Comments MITOCHONDRIAL M2 AB (test code = 30.9 UNITS 4634) MITOCHONDRIAL M2 [id number] 00:00:00 Test Item Value Reference Range Interpretation Comments MITOCHONDRIAL M2 AB (test code = 30.9 UNITS 4634) ALKALINE PHOSPHATASE [id number] 00:00:00 Test Item Value Reference Range Interpretation Comments ALKALINE PHOSPHATASE (test code = 196 U/L 65241) ALK PHOS, LIVER 1% (test code = 37.3 % 89283) ALK PHOS, LIVER 1 ABS (test code = 73.1 U/L 02173) ALK PHOS, LIVER 2% (test code = 4.5 % 82561) ALK PHOS, LIVER 2 ABS (test code = 8.8 U/L 40600) ALK PHOS, BONE % (test code = 71345) 44.0 % ALK PHOS, BONE ABS (test code = 86.2 U/L 66167) ALK PHOS, INTESTINE % (test code = 14.2 % 90491) ALK PHOS, INTESTINE ABS (test code = 27.8 U/L 984565) ALK PHOS, PLACENTAL % (test code = 0.0 % 896913) ALK PHOS, PLACENTAL ABS (test code = 0.0 U/L 844644) ALKALINE PHOSPHATASE [id number] 00:00:00 Test Item Value Reference Range Interpretation Comments ALKALINE PHOSPHATASE (test code = 196 U/L 84379) ALK PHOS, LIVER 1% (test code = 37.3 % 61721) ALK PHOS, LIVER 1 ABS (test code = 73.1 U/L 44330) ALK PHOS, LIVER 2% (test code = 4.5 % 07900) ALK PHOS, LIVER 2 ABS (test code = 8.8 U/L 63347) ALK PHOS, BONE % (test code = 49666) 44.0 % ALK PHOS, BONE ABS (test code = 86.2 U/L 54106) ALK PHOS, INTESTINE % (test code = 14.2 % 46769) ALK PHOS, INTESTINE ABS (test code = 27.8 U/L 040878) ALK PHOS, PLACENTAL % (test code = 0.0 % 300086) ALK PHOS, PLACENTAL ABS (test code = 0.0 U/L 400222) ALKALINE PHOSPHATASE [id number] 00:00:00 Test Item Value Reference Range Interpretation Comments ALKALINE PHOSPHATASE (test code = 196 U/L 85421) ALK PHOS, LIVER 1% (test code = 37.3 % 48152) ALK PHOS, LIVER 1 ABS (test code = 73.1 U/L 31510) ALK PHOS, LIVER 2% (test code = 4.5 % 98754) ALK PHOS, LIVER 2 ABS (test code = 8.8 U/L 47020) ALK PHOS, BONE % (test code = 63213) 44.0 % ALK PHOS, BONE ABS (test code = 86.2 U/L 65074) ALK PHOS, INTESTINE % (test code = 14.2 % 28257) ALK PHOS, INTESTINE ABS (test code = 27.8 U/L 928211) ALK PHOS, PLACENTAL % (test code = 0.0 % 673110) ALK PHOS, PLACENTAL ABS (test code = 0.0 U/L 878302) HIV AB/AG COMBO RFLX [id number] 00:00:00 Test Item Value Reference Range Interpretation Comments HIV 1/2 4TH GEN, RFLX CONF (test NON-REACTIVE code = 3514) HIV AB/AG COMBO RFLX [id number] 00:00:00 Test Item Value Reference Range Interpretation Comments HIV 1/2 4TH GEN, RFLX CONF (test NON-REACTIVE code = 3514) HEP B CORE TOTAL [id number] 00:00:00 Test Item Value Reference Range Interpretation Comments HEP B CORE TOTAL AB (test code = NON-REACTIVE 2729) HEP B CORE TOTAL [id number] 00:00:00 Test Item Value Reference Range Interpretation Comments HEP B CORE TOTAL AB (test code = NON-REACTIVE 2729) SCR MAMM BILATERAL CAD [id number] 15:50:34 - SCR MAMM BILATERAL CAD DIGITALBILATERAL DIGITAL SCREENING MAMMOGRAM 3D/2D WITH CAD: 12/20/2018CLINICAL: Asymptomatic. Digital breast tomosynthesis was performed in addition to routine CC and MLO views. Current mammographic images were evaluated by either a [employer] M-Vu or a [employer] ImageChecker CAD (computer aided detection system). Comparison is made to exam dated 02/02/2012 mammogram - [facility]. The tissue of both breasts is heterogeneously dense. This may lower the sensitiv ity of mammography. No suspicious mass, architectural distortion, [...] dense breast tissue.Umang Valdez M.D. rb/:12/31/2018 15:50:34 Ceramics Technician: Larissa Sanon MM, [facility] Mammographyletter sent: BIRADS 1-2 Normal Mammogram BI-RADS: 1 NegativeHCV RNA, PCR QUANT [REFLEX]2018-12-11 00:00:00 Test Item Value Reference Range Interpretation Comments HCV RNA, PCR QUANT (test code 65774885 IU/ML = 4571) HCV VIRAL LOG (test code = 7.013 LOGIU/ML 06451) HCV RNA, PCR QUANT [REFLEX]2018-12-11 00:00:00 Test Item Value Reference Range Interpretation Comments HCV RNA, PCR QUANT (test code 50000935 IU/ML = 4571) HCV VIRAL LOG (test code = 7.013 LOGIU/ML 81609) HCV RNA, PCR QUANT [REFLEX]2018-12-11 00:00:00 Test Item Value Reference Range Interpretation Comments HCV RNA, PCR QUANT (test code 04966863 IU/ML = 4571) HCV VIRAL LOG (test code = 7.013 LOGIU/ML 73652) HCV RNA, PCR QUANT [REFLEX]2018-12-11 00:00:00 Test Item Value Reference Range Interpretation Comments HCV RNA, PCR QUANT (test code 98649487 IU/ML = 4571) HCV VIRAL LOG (test code = 7.013 LOGIU/ML 16013) HCV RNA, PCR QUANT [REFLEX]2018-12-11 00:00:00 Test Item Value Reference Range Interpretation Comments HCV RNA, PCR QUANT (test code 64997217 IU/ML = 4571) HCV VIRAL LOG (test code = 7.013 LOGIU/ML 18911) HCV RNA, PCR QUANT [REFLEX]2018-12-11 00:00:00 Test Item Value Reference Range Interpretation Comments HCV RNA, PCR QUANT (test code 12316673 IU/ML = 4571) HCV VIRAL LOG (test code = 7.013 LOGIU/ML 38149) HCV RNA, PCR QUANT [REFLEX]2018-12-11 00:00:00 Test Item Value Reference Range Interpretation Comments HCV RNA, PCR QUANT (test code 07426247 IU/ML = 4571) HCV VIRAL LOG (test code = 7.013 LOGIU/ML 49907) HCV RNA, PCR QUANT [REFLEX]2018-12-11 00:00:00 Test Item Value Reference Range Interpretation Comments HCV RNA, PCR QUANT (test code 38858749 IU/ML = 4571) HCV VIRAL LOG (test code = 7.013 LOGIU/ML 16887) HCV RNA, PCR QUANT [REFLEX]2018-12-11 00:00:00 Test Item Value Reference Range Interpretation Comments HCV RNA, PCR QUANT (test code 41404710 IU/ML = 4571) HCV VIRAL LOG (test code = 7.013 LOGIU/ML 97938) HCV RNA, PCR QUANT [REFLEX]2018-12-11 00:00:00 Test Item Value Reference Range Interpretation Comments HCV RNA, PCR QUANT (test code 88154125 IU/ML = 4571) HCV VIRAL LOG (test code = 7.013 LOGIU/ML 52765) HCV RNA, PCR QUANT [REFLEX]2018-12-11 00:00:00 Test Item Value Reference Range Interpretation Comments HCV RNA, PCR QUANT (test code 50554176 IU/ML = 4571) HCV VIRAL LOG (test code = 7.013 LOGIU/ML 92854) HCV RNA, PCR QUANT [REFLEX]2018-12-11 00:00:00 Test Item Value Reference Range Interpretation Comments HCV RNA, PCR QUANT (test code 71441048 IU/ML = 4571) HCV VIRAL LOG (test code = 7.013 LOGIU/ML 51223) HCV RNA, PCR QUANT [REFLEX]2018-12-11 00:00:00 Test Item Value Reference Range Interpretation Comments HCV RNA, PCR QUANT (test code 68407623 IU/ML = 4571) HCV VIRAL LOG (test code = 7.013 LOGIU/ML 34849) HCV RNA, PCR QUANT [REFLEX]2018-12-11 00:00:00 Test Item Value Reference Range Interpretation Comments HCV RNA, PCR QUANT (test code 90554668 IU/ML = 4571) HCV VIRAL LOG (test code = 7.013 LOGIU/ML 67468) HCV RNA, PCR QUANT [REFLEX]2018-12-11 00:00:00 Test Item Value Reference Range Interpretation Comments HCV RNA, PCR QUANT (test code 68457957 IU/ML = 4571) HCV VIRAL LOG (test code = 7.013 LOGIU/ML 28150) HCV RNA, PCR QUANT [REFLEX]2018-12-11 00:00:00 Test Item Value Reference Range Interpretation Comments HCV RNA, PCR QUANT (test code 10714778 IU/ML = 4571) HCV VIRAL LOG (test code = 7.013 LOGIU/ML 35694) HCV RNA, PCR QUANT [REFLEX]2018-12-11 00:00:00 Test Item Value Reference Range Interpretation Comments HCV RNA, PCR QUANT (test code 18123607 IU/ML = 4571) HCV VIRAL LOG (test code = 7.013 LOGIU/ML 50332) HEPATITIS C REFLEX [id number] 00:00:00 Test Item Value Reference Range Interpretation Comments HEPATITIS C ANTIBODY (test code = REACTIVE 4675) HCV INDEX (test code = 84929) 14.84 HEPATITIS C REFLEX [id number] 00:00:00 Test Item Value Reference Range Interpretation Comments HEPATITIS C ANTIBODY (test code = REACTIVE 4675) HCV INDEX (test code = 06146) 14.84 HEPATITIS C REFLEX [id number] 00:00:00 Test Item Value Reference Range Interpretation Comments HEPATITIS C ANTIBODY (test code = REACTIVE 4675) HCV INDEX (test code = 27711) 14.84 HEPATITIS C REFLEX [id number] 00:00:00 Test Item Value Reference Range Interpretation Comments HEPATITIS C ANTIBODY (test code = REACTIVE 4675) HCV INDEX (test code = 82176) 14.84 HEPATITIS C REFLEX [id number] 00:00:00 Test Item Value Reference Range Interpretation Comments HEPATITIS C ANTIBODY (test code = REACTIVE 4675) HCV INDEX (test code = 86302) 14.84 HEPATITIS C REFLEX [id number] 00:00:00 Test Item Value Reference Range Interpretation Comments HEPATITIS C ANTIBODY (test code = REACTIVE 4675) HCV INDEX (test code = 00874) 14.84 HEPATITIS C REFLEX [id number] 00:00:00 Test Item Value Reference Range Interpretation Comments HEPATITIS C ANTIBODY (test code = REACTIVE 4675) HCV INDEX (test code = 40741) 14.84 HEPATITIS C REFLEX [id number] 00:00:00 Test Item Value Reference Range Interpretation Comments HEPATITIS C ANTIBODY (test code = REACTIVE 4675) HCV INDEX (test code = 66675) 14.84 HEPATITIS C REFLEX [id number] 00:00:00 Test Item Value Reference Range Interpretation Comments HEPATITIS C ANTIBODY (test code = REACTIVE 4675) HCV INDEX (test code = 47885) 14.84 HEPATITIS C REFLEX [id number] 00:00:00 Test Item Value Reference Range Interpretation Comments HEPATITIS C ANTIBODY (test code = REACTIVE 4675) HCV INDEX (test code = 70536) 14.84 HEPATITIS C REFLEX [id number] 00:00:00 Test Item Value Reference Range Interpretation Comments HEPATITIS C ANTIBODY (test code = REACTIVE 4675) HCV INDEX (test code = 46148) 14.84 COMPREHENSIVE METABOLIC [id number] 00:00:00 Test Item Value Reference Range Interpretation Comments GLUCOSE (test code = 2217) 109 MG/DL BUN (test code = 2208) 15 MG/DL CREATININE (test code = 2214) 0.69 MG/DL eGFR AMER. (test code 115 ML/MIN/1.73 = 48563) eGFR NON- AMER. (test 99 ML/MIN/1.73 code = 35128) CALC BUN/CREAT (test code = 22 RATIO 2235) SODIUM (test code = 2231) 139 MEQ/L POTASSIUM (test code = 2228) 4.1 MEQ/L CHLORIDE (test code = 2215) 103 MEQ/L CARBON DIOXIDE (test code = 28 MEQ/L 6) CALCIUM (test code = 2209) 9.3 MG/DL PROTEIN, TOTAL (test code = 7.2 G/DL 2228) ALBUMIN (test code = 2201) 4.2 G/DL CALC GLOBULIN (test code = 3.0 G/DL 2240) CALC A/G RATIO (test code = 1.4 RATIO 2234) BILIRUBIN, TOTAL (test code = 0.6 MG/DL 2206) ALKALINE PHOSPHATASE (test 209 U/L code = 2204) AST (test code = 2218) 16 U/L ALT (test code = 2219) 17 U/L CBC W/AUTO [id number] 00:00:00 Test Item Value Reference Range Interpretation Comments WBC (test code = 1001) 4.8 K/UL RBC (test code = 1002) 4.65 M/UL HEMOGLOBIN (test code = 1003) 14.3 G/DL HEMATOCRIT (test code = 1004) 40.9 % MCV (test code = 1005) 88.0 fL MCH (test code = 1006) 30.8 PG MCHC (test code = 1007) 35.0 G/DL RDW (test code = 1038) 12.6 % NEUTROPHILS (test code = 1008) 69.4 % LYMPHOCYTES (test code = 1010) 19.5 % MONOCYTES (test code = 1011) 10.1 % EOSINOPHILS (test code = 1012) 0.2 % BASOPHILS (test code = 1013) 0.8 % PLATELET COUNT (test code = 1015) 145 K/UL CBC W/AUTO [id number] 00:00:00 Test Item Value Reference Range Interpretation Comments WBC (test code = 1001) 4.8 K/UL RBC (test code = 1002) 4.65 M/UL HEMOGLOBIN (test code = 1003) 14.3 G/DL HEMATOCRIT (test code = 1004) 40.9 % MCV (test code = 1005) 88.0 fL MCH (test code = 1006) 30.8 PG MCHC (test code = 1007) 35.0 G/DL RDW (test code = 1038) 12.6 % NEUTROPHILS (test code = 1008) 69.4 % LYMPHOCYTES (test code = 1010) 19.5 % MONOCYTES (test code = 1011) 10.1 % EOSINOPHILS (test code = 1012) 0.2 % BASOPHILS (test code = 1013) 0.8 % PLATELET COUNT (test code = 1015) 145 K/UL [id number] 00:00:00 Test Item Value Reference Range Interpretation Comments TSH, THIRD GENERATION (test code 2.110 UIU/ML = 2821) [id number] 00:00:00 Test Item Value Reference Range Interpretation Comments TSH, THIRD GENERATION (test code 2.110 UIU/ML = 2821) [id number] 00:00:00 Test Item Value Reference Range Interpretation Comments GGT (test code = 2216) 25 U/L ACUTE HEPATITIS [id number] 00:00:00 Test Item Value Reference Range Interpretation Comments HEPATITIS A IgM (test code = NON-REACTIVE 64779) HEPATITIS B CORE IgM (test code NON-REACTIVE = 4644) HEPATITIS B SURF AG (test code = NON-REACTIVE 4609) HEPATITIS C ANTIBODY (test code REACTIVE = 4675) HCV INDEX (test code = 71760) 13.68 INTERPRETATION HEPATITIS A: (NOTE) (test code = 2552) INTERPRETATION HEPATITIS B: (NOTE) (test code = 18457) INTERPRETATION HEPATITIS C: (NOTE) (test code = 56201) ACUTE HEPATITIS [id number] 00:00:00 Test Item Value Reference Range Interpretation Comments HEPATITIS A IgM (test code = NON-REACTIVE 92447) HEPATITIS B CORE IgM (test code NON-REACTIVE = 4644) HEPATITIS B SURF AG (test code = NON-REACTIVE 2739) HEPATITIS C ANTIBODY (test code REACTIVE = 4675) HCV INDEX (test code = 40100) 13.68 INTERPRETATION HEPATITIS A: (NOTE) (test code = 2552) INTERPRETATION HEPATITIS B: (NOTE) (test code = 84545) INTERPRETATION HEPATITIS C: (NOTE) (test code = 34884) COMPREHENSIVE METABOLIC [id number] 00:00:00 Test Item Value Reference Range Interpretation Comments GLUCOSE (test code = 2217) 109 MG/DL BUN (test code = 2208) 15 MG/DL CREATININE (test code = 2214) 0.69 MG/DL eGFR AMER. (test code 115 ML/MIN/1.73 = 18543) eGFR NON- AMER. (test 99 ML/MIN/1.73 code = 28128) CALC BUN/CREAT (test code = 22 RATIO 2235) SODIUM (test code = 2231) 139 MEQ/L POTASSIUM (test code = 2228) 4.1 MEQ/L CHLORIDE (test code = 2215) 103 MEQ/L CARBON DIOXIDE (test code = 28 MEQ/L 2206) CALCIUM (test code = 2209) 9.3 MG/DL PROTEIN, TOTAL (test code = 7.2 G/DL 2228) ALBUMIN (test code = 2201) 4.2 G/DL CALC GLOBULIN (test code = 3.0 G/DL 2240) CALC A/G RATIO (test code = 1.4 RATIO 2234) BILIRUBIN, TOTAL (test code = 0.6 MG/DL 2206) ALKALINE PHOSPHATASE (test 209 U/L code = 2204) AST (test code = 2218) 16 U/L ALT (test code = 2219) 17 U/L COMPREHENSIVE METABOLIC [id number] 00:00:00 Test Item Value Reference Range Interpretation Comments GLUCOSE (test code = 2217) 109 MG/DL BUN (test code = 2208) 15 MG/DL CREATININE (test code = 2214) 0.69 MG/DL eGFR AMER. (test code 115 ML/MIN/1.73 = 15502) eGFR NON- AMER. (test 99 ML/MIN/1.73 code = 89822) CALC BUN/CREAT (test code = 22 RATIO 2235) SODIUM (test code = 2231) 139 MEQ/L POTASSIUM (test code = 2228) 4.1 MEQ/L CHLORIDE (test code = 2215) 103 MEQ/L CARBON DIOXIDE (test code = 28 MEQ/L 220) CALCIUM (test code = 2209) 9.3 MG/DL PROTEIN, TOTAL (test code = 7.2 G/DL 2228) ALBUMIN (test code = 2201) 4.2 G/DL CALC GLOBULIN (test code = 3.0 G/DL 224) CALC A/G RATIO (test code = 1.4 RATIO 2233) BILIRUBIN, TOTAL (test code = 0.6 MG/DL 2206) ALKALINE PHOSPHATASE (test 209 U/L code = 2204) AST (test code = 2218) 16 U/L ALT (test code = 2219) 17 U/L CBC W/AUTO [id number] 00:00:00 Test Item Value Reference Range Interpretation Comments WBC (test code = 1001) 4.8 K/UL RBC (test code = 1002) 4.65 M/UL HEMOGLOBIN (test code = 1003) 14.3 G/DL HEMATOCRIT (test code = 1004) 40.9 % MCV (test code = 1005) 88.0 fL MCH (test code = 1006) 30.8 PG MCHC (test code = 1007) 35.0 G/DL RDW (test code = 1038) 12.6 % NEUTROPHILS (test code = 1008) 69.4 % LYMPHOCYTES (test code = 1010) 19.5 % MONOCYTES (test code = 1011) 10.1 % EOSINOPHILS (test code = 1012) 0.2 % BASOPHILS (test code = 1013) 0.8 % PLATELET COUNT (test code = 1015) 145 K/UL CBC W/AUTO [id number] 00:00:00 Test Item Value Reference Range Interpretation Comments WBC (test code = 1001) 4.8 K/UL RBC (test code = 1002) 4.65 M/UL HEMOGLOBIN (test code = 1003) 14.3 G/DL HEMATOCRIT (test code = 1004) 40.9 % MCV (test code = 1005) 88.0 fL MCH (test code = 1006) 30.8 PG MCHC (test code = 1007) 35.0 G/DL RDW (test code = 1038) 12.6 % NEUTROPHILS (test code = 1008) 69.4 % LYMPHOCYTES (test code = 1010) 19.5 % MONOCYTES (test code = 1011) 10.1 % EOSINOPHILS (test code = 1012) 0.2 % BASOPHILS (test code = 1013) 0.8 % PLATELET COUNT (test code = 1015) 145 K/UL CBC W/AUTO [id number] 00:00:00 Test Item Value Reference Range Interpretation Comments WBC (test code = 1001) 4.8 K/UL RBC (test code = 1002) 4.65 M/UL HEMOGLOBIN (test code = 1003) 14.3 G/DL HEMATOCRIT (test code = 1004) 40.9 % MCV (test code = 1005) 88.0 fL MCH (test code = 1006) 30.8 PG MCHC (test code = 1007) 35.0 G/DL RDW (test code = 1038) 12.6 % NEUTROPHILS (test code = 1008) 69.4 % LYMPHOCYTES (test code = 1010) 19.5 % MONOCYTES (test code = 1011) 10.1 % EOSINOPHILS (test code = 1012) 0.2 % BASOPHILS (test code = 1013) 0.8 % PLATELET COUNT (test code = 1015) 145 K/UL [id number] 00:00:00 Test Item Value Reference Range Interpretation Comments TSH, THIRD GENERATION (test code 2.110 UIU/ML = 2821) [id number] 00:00:00 Test Item Value Reference Range Interpretation Comments TSH, THIRD GENERATION (test code 2.110 UIU/ML = 2821) [id number] 00:00:00 Test Item Value Reference Range Interpretation Comments TSH, THIRD GENERATION (test code 2.110 UIU/ML = 2821) [id number] 00:00:00 Test Item Value Reference Range Interpretation Comments GGT (test code = 2216) 25 U/L [id number] 00:00:00 Test Item Value Reference Range Interpretation Comments GGT (test code = 2216) 25 U/L ACUTE HEPATITIS [id number] 00:00:00 Test Item Value Reference Range Interpretation Comments HEPATITIS A IgM (test code = NON-REACTIVE 54502) HEPATITIS B CORE IgM (test code NON-REACTIVE = 4644) HEPATITIS B SURF AG (test code = NON-REACTIVE 2739) HEPATITIS C ANTIBODY (test code REACTIVE = 4675) HCV INDEX (test code = 51419) 13.68 INTERPRETATION HEPATITIS A: (NOTE) (test code = 2552) INTERPRETATION HEPATITIS B: (NOTE) (test code = 85251) INTERPRETATION HEPATITIS C: (NOTE) (test code = 41030) ACUTE HEPATITIS [id number] 00:00:00 Test Item Value Reference Range Interpretation Comments HEPATITIS A IgM (test code = NON-REACTIVE 18641) HEPATITIS B CORE IgM (test code NON-REACTIVE = 4644) HEPATITIS B SURF AG (test code = NON-REACTIVE 2739) HEPATITIS C ANTIBODY (test code REACTIVE = 4675) HCV INDEX (test code = 19149) 13.68 INTERPRETATION HEPATITIS A: (NOTE) (test code = 2552) INTERPRETATION HEPATITIS B: (NOTE) (test code = 45918) INTERPRETATION HEPATITIS C: (NOTE) (test code = 99679) COMPREHENSIVE METABOLIC [id number] 00:00:00 Test Item Value Reference Range Interpretation Comments GLUCOSE (test code = 2217) 109 MG/DL BUN (test code = 2208) 15 MG/DL CREATININE (test code = 2214) 0.69 MG/DL eGFR AMER. (test code 115 ML/MIN/1.73 = 65523) eGFR NON- AMER. (test 99 ML/MIN/1.73 code = 70324) CALC BUN/CREAT (test code = 22 RATIO 2235) SODIUM (test code = 2231) 139 MEQ/L POTASSIUM (test code = 2228) 4.1 MEQ/L CHLORIDE (test code = 2215) 103 MEQ/L CARBON DIOXIDE (test code = 28 MEQ/L 2206) CALCIUM (test code = 2209) 9.3 MG/DL PROTEIN, TOTAL (test code = 7.2 G/DL 2228) ALBUMIN (test code = 2201) 4.2 G/DL CALC GLOBULIN (test code = 3.0 G/DL 2239) CALC A/G RATIO (test code = 1.4 RATIO 2234) BILIRUBIN, TOTAL (test code = 0.6 MG/DL 2207) ALKALINE PHOSPHATASE (test 209 U/L code = 2204) AST (test code = 2218) 16 U/L ALT (test code = 2219) 17 U/L COMPREHENSIVE METABOLIC [id number] 00:00:00 Test Item Value Reference Range Interpretation Comments GLUCOSE (test code = 2217) 109 MG/DL BUN (test code = 2208) 15 MG/DL CREATININE (test code = 2214) 0.69 MG/DL eGFR AMER. (test code 115 ML/MIN/1.73 = 04335) eGFR NON- AMER. (test 99 ML/MIN/1.73 code = 73977) CALC BUN/CREAT (test code = 22 RATIO 2235) SODIUM (test code = 2231) 139 MEQ/L POTASSIUM (test code = 2228) 4.1 MEQ/L CHLORIDE (test code = 2215) 103 MEQ/L CARBON DIOXIDE (test code = 28 MEQ/L 2205) CALCIUM (test code = 2209) 9.3 MG/DL PROTEIN, TOTAL (test code = 7.2 G/DL 2228) ALBUMIN (test code = 2201) 4.2 G/DL CALC GLOBULIN (test code = 3.0 G/DL 2240) CALC A/G RATIO (test code = 1.4 RATIO 2234) BILIRUBIN, TOTAL (test code = 0.6 MG/DL 2206) ALKALINE PHOSPHATASE (test 209 U/L code = 2204) AST (test code = 2218) 16 U/L ALT (test code = 2219) 17 U/L CBC W/AUTO [id number] 00:00:00 Test Item Value Reference Range Interpretation Comments WBC (test code = 1001) 4.8 K/UL RBC (test code = 1002) 4.65 M/UL HEMOGLOBIN (test code = 1003) 14.3 G/DL HEMATOCRIT (test code = 1004) 40.9 % MCV (test code = 1005) 88.0 fL MCH (test code = 1006) 30.8 PG MCHC (test code = 1007) 35.0 G/DL RDW (test code = 1038) 12.6 % NEUTROPHILS (test code = 1008) 69.4 % LYMPHOCYTES (test code = 1010) 19.5 % MONOCYTES (test code = 1011) 10.1 % EOSINOPHILS (test code = 1012) 0.2 % BASOPHILS (test code = 1013) 0.8 % PLATELET COUNT (test code = 1015) 145 K/UL CBC W/AUTO [id number] 00:00:00 Test Item Value Reference Range Interpretation Comments WBC (test code = 1001) 4.8 K/UL RBC (test code = 1002) 4.65 M/UL HEMOGLOBIN (test code = 1003) 14.3 G/DL HEMATOCRIT (test code = 1004) 40.9 % MCV (test code = 1005) 88.0 fL MCH (test code = 1006) 30.8 PG MCHC (test code = 1007) 35.0 G/DL RDW (test code = 1038) 12.6 % NEUTROPHILS (test code = 1008) 69.4 % LYMPHOCYTES (test code = 1010) 19.5 % MONOCYTES (test code = 1011) 10.1 % EOSINOPHILS (test code = 1012) 0.2 % BASOPHILS (test code = 1013) 0.8 % PLATELET COUNT (test code = 1015) 145 K/UL CBC W/AUTO [id number] 00:00:00 Test Item Value Reference Range Interpretation Comments WBC (test code = 1001) 4.8 K/UL RBC (test code = 1002) 4.65 M/UL HEMOGLOBIN (test code = 1003) 14.3 G/DL HEMATOCRIT (test code = 1004) 40.9 % MCV (test code = 1005) 88.0 fL MCH (test code = 1006) 30.8 PG MCHC (test code = 1007) 35.0 G/DL RDW (test code = 1038) 12.6 % NEUTROPHILS (test code = 1008) 69.4 % LYMPHOCYTES (test code = 1010) 19.5 % MONOCYTES (test code = 1011) 10.1 % EOSINOPHILS (test code = 1012) 0.2 % BASOPHILS (test code = 1013) 0.8 % PLATELET COUNT (test code = 1015) 145 K/UL [id number] 00:00:00 Test Item Value Reference Range Interpretation Comments TSH, THIRD GENERATION (test code 2.110 UIU/ML = 2821) [id number] 00:00:00 Test Item Value Reference Range Interpretation Comments TSH, THIRD GENERATION (test code 2.110 UIU/ML = 2821) [id number] 00:00:00 Test Item Value Reference Range Interpretation Comments TSH, THIRD GENERATION (test code 2.110 UIU/ML = 2821) [id number] 00:00:00 Test Item Value Reference Range Interpretation Comments GGT (test code = 2216) 25 U/L [id number] 00:00:00 Test Item Value Reference Range Interpretation Comments GGT (test code = 2216) 25 U/L ACUTE HEPATITIS [id number] 00:00:00 Test Item Value Reference Range Interpretation Comments HEPATITIS A IgM (test code = NON-REACTIVE 52032) HEPATITIS B CORE IgM (test code NON-REACTIVE = 4644) HEPATITIS B SURF AG (test code = NON-REACTIVE 2739) HEPATITIS C ANTIBODY (test code REACTIVE = 4675) HCV INDEX (test code = 41362) 13.68 INTERPRETATION HEPATITIS A: (NOTE) (test code = 2552) INTERPRETATION HEPATITIS B: (NOTE) (test code = 31710) INTERPRETATION HEPATITIS C: (NOTE) (test code = 11864) ACUTE HEPATITIS [id number] 00:00:00 Test Item Value Reference Range Interpretation Comments HEPATITIS A IgM (test code = NON-REACTIVE 61596) HEPATITIS B CORE IgM (test code NON-REACTIVE = 4644) HEPATITIS B SURF AG (test code = NON-REACTIVE 2739) HEPATITIS C ANTIBODY (test code REACTIVE = 4675) HCV INDEX (test code = 74156) 13.68 INTERPRETATION HEPATITIS A: (NOTE) (test code = 2552) INTERPRETATION HEPATITIS B: (NOTE) (test code = 77948) INTERPRETATION HEPATITIS C: (NOTE) (test code = 38509) COMPREHENSIVE METABOLIC [id number] 00:00:00 Test Item Value Reference Range Interpretation Comments GLUCOSE (test code = 2217) 109 MG/DL BUN (test code = 2208) 15 MG/DL CREATININE (test code = 2214) 0.69 MG/DL eGFR AMER. (test code 115 ML/MIN/1.73 = 76247) eGFR NON- AMER. (test 99 ML/MIN/1.73 code = 20127) CALC BUN/CREAT (test code = 22 RATIO 2235) SODIUM (test code = 2231) 139 MEQ/L POTASSIUM (test code = 2228) 4.1 MEQ/L CHLORIDE (test code = 2215) 103 MEQ/L CARBON DIOXIDE (test code = 28 MEQ/L 220) CALCIUM (test code = 2209) 9.3 MG/DL PROTEIN, TOTAL (test code = 7.2 G/DL 222) ALBUMIN (test code = 2201) 4.2 G/DL CALC GLOBULIN (test code = 3.0 G/DL 2240) CALC A/G RATIO (test code = 1.4 RATIO 2234) BILIRUBIN, TOTAL (test code = 0.6 MG/DL 2206) ALKALINE PHOSPHATASE (test 209 U/L code = 2204) AST (test code = 2218) 16 U/L ALT (test code = 2219) 17 U/L COMPREHENSIVE METABOLIC [id number] 00:00:00 Test Item Value Reference Range Interpretation Comments GLUCOSE (test code = 2217) 109 MG/DL BUN (test code = 2208) 15 MG/DL CREATININE (test code = 2214) 0.69 MG/DL eGFR AMER. (test code 115 ML/MIN/1.73 = 38647) eGFR NON- AMER. (test 99 ML/MIN/1.73 code = 94387) CALC BUN/CREAT (test code = 22 RATIO 2235) SODIUM (test code = 2231) 139 MEQ/L POTASSIUM (test code = 2228) 4.1 MEQ/L CHLORIDE (test code = 2215) 103 MEQ/L CARBON DIOXIDE (test code = 28 MEQ/L 2205) CALCIUM (test code = 2209) 9.3 MG/DL PROTEIN, TOTAL (test code = 7.2 G/DL 2228) ALBUMIN (test code = 2201) 4.2 G/DL CALC GLOBULIN (test code = 3.0 G/DL 2240) CALC A/G RATIO (test code = 1.4 RATIO 2234) BILIRUBIN, TOTAL (test code = 0.6 MG/DL 7) ALKALINE PHOSPHATASE (test 209 U/L code = 2204) AST (test code = 2218) 16 U/L ALT (test code = 2219) 17 U/L CBC W/AUTO [id number] 00:00:00 Test Item Value Reference Range Interpretation Comments WBC (test code = 1001) 4.8 K/UL RBC (test code = 1002) 4.65 M/UL HEMOGLOBIN (test code = 1003) 14.3 G/DL HEMATOCRIT (test code = 1004) 40.9 % MCV (test code = 1005) 88.0 fL MCH (test code = 1006) 30.8 PG MCHC (test code = 1007) 35.0 G/DL RDW (test code = 1038) 12.6 % NEUTROPHILS (test code = 1008) 69.4 % LYMPHOCYTES (test code = 1010) 19.5 % MONOCYTES (test code = 1011) 10.1 % EOSINOPHILS (test code = 1012) 0.2 % BASOPHILS (test code = 1013) 0.8 % PLATELET COUNT (test code = 1015) 145 K/UL CBC W/AUTO [id number] 00:00:00 Test Item Value Reference Range Interpretation Comments WBC (test code = 1001) 4.8 K/UL RBC (test code = 1002) 4.65 M/UL HEMOGLOBIN (test code = 1003) 14.3 G/DL HEMATOCRIT (test code = 1004) 40.9 % MCV (test code = 1005) 88.0 fL MCH (test code = 1006) 30.8 PG MCHC (test code = 1007) 35.0 G/DL RDW (test code = 1038) 12.6 % NEUTROPHILS (test code = 1008) 69.4 % LYMPHOCYTES (test code = 1010) 19.5 % MONOCYTES (test code = 1011) 10.1 % EOSINOPHILS (test code = 1012) 0.2 % BASOPHILS (test code = 1013) 0.8 % PLATELET COUNT (test code = 1015) 145 K/UL CBC W/AUTO [id number] 00:00:00 Test Item Value Reference Range Interpretation Comments WBC (test code = 1001) 4.8 K/UL RBC (test code = 1002) 4.65 M/UL HEMOGLOBIN (test code = 1003) 14.3 G/DL HEMATOCRIT (test code = 1004) 40.9 % MCV (test code = 1005) 88.0 fL MCH (test code = 1006) 30.8 PG MCHC (test code = 1007) 35.0 G/DL RDW (test code = 1038) 12.6 % NEUTROPHILS (test code = 1008) 69.4 % LYMPHOCYTES (test code = 1010) 19.5 % MONOCYTES (test code = 1011) 10.1 % EOSINOPHILS (test code = 1012) 0.2 % BASOPHILS (test code = 1013) 0.8 % PLATELET COUNT (test code = 1015) 145 K/UL [id number] 00:00:00 Test Item Value Reference Range Interpretation Comments TSH, THIRD GENERATION (test code 2.110 UIU/ML = 2821) [id number] 00:00:00 Test Item Value Reference Range Interpretation Comments TSH, THIRD GENERATION (test code 2.110 UIU/ML = 2821) [id number] 00:00:00 Test Item Value Reference Range Interpretation Comments TSH, THIRD GENERATION (test code 2.110 UIU/ML = 2821) [id number] 00:00:00 Test Item Value Reference Range Interpretation Comments GGT (test code = 2216) 25 U/L [id number] 00:00:00 Test Item Value Reference Range Interpretation Comments GGT (test code = 2216) 25 U/L ACUTE HEPATITIS [id number] 00:00:00 Test Item Value Reference Range Interpretation Comments HEPATITIS A IgM (test code = NON-REACTIVE 44285) HEPATITIS B CORE IgM (test code NON-REACTIVE = 4644) HEPATITIS B SURF AG (test code = NON-REACTIVE 2739) HEPATITIS C ANTIBODY (test code REACTIVE = 4675) HCV INDEX (test code = 81426) 13.68 INTERPRETATION HEPATITIS A: (NOTE) (test code = 2552) INTERPRETATION HEPATITIS B: (NOTE) (test code = 70440) INTERPRETATION HEPATITIS C: (NOTE) (test code = 08116) ACUTE HEPATITIS [id number] 00:00:00 Test Item Value Reference Range Interpretation Comments HEPATITIS A IgM (test code = NON-REACTIVE 77943) HEPATITIS B CORE IgM (test code NON-REACTIVE = 4644) HEPATITIS B SURF AG (test code = NON-REACTIVE 2739) HEPATITIS C ANTIBODY (test code REACTIVE = 4675) HCV INDEX (test code = 25625) 13.68 INTERPRETATION HEPATITIS A: (NOTE) (test code = 2552) INTERPRETATION HEPATITIS B: (NOTE) (test code = 81257) INTERPRETATION HEPATITIS C: (NOTE) (test code = 12560) COMPREHENSIVE METABOLIC [id number] 00:00:00 Test Item Value Reference Range Interpretation Comments GLUCOSE (test code = 2217) 109 MG/DL BUN (test code = 2208) 15 MG/DL CREATININE (test code = 2214) 0.69 MG/DL eGFR AMER. (test code 115 ML/MIN/1.73 = 51011) eGFR NON- AMER. (test 99 ML/MIN/1.73 code = 12905) CALC BUN/CREAT (test code = 22 RATIO 2235) SODIUM (test code = 2231) 139 MEQ/L POTASSIUM (test code = 2228) 4.1 MEQ/L CHLORIDE (test code = 2215) 103 MEQ/L CARBON DIOXIDE (test code = 28 MEQ/L 2206) CALCIUM (test code = 2209) 9.3 MG/DL PROTEIN, TOTAL (test code = 7.2 G/DL 222) ALBUMIN (test code = 2201) 4.2 G/DL CALC GLOBULIN (test code = 3.0 G/DL 2240) CALC A/G RATIO (test code = 1.4 RATIO 2234) BILIRUBIN, TOTAL (test code = 0.6 MG/DL 2206) ALKALINE PHOSPHATASE (test 209 U/L code = 2204) AST (test code = 2218) 16 U/L ALT (test code = 2219) 17 U/L COMPREHENSIVE METABOLIC [id number] 00:00:00 Test Item Value Reference Range Interpretation Comments GLUCOSE (test code = 2217) 109 MG/DL BUN (test code = 2208) 15 MG/DL CREATININE (test code = 2214) 0.69 MG/DL eGFR AMER. (test code 115 ML/MIN/1.73 = 04919) eGFR NON- AMER. (test 99 ML/MIN/1.73 code = 96773) CALC BUN/CREAT (test code = 22 RATIO 2235) SODIUM (test code = 2231) 139 MEQ/L POTASSIUM (test code = 2228) 4.1 MEQ/L CHLORIDE (test code = 2215) 103 MEQ/L CARBON DIOXIDE (test code = 28 MEQ/L 2206) CALCIUM (test code = 2209) 9.3 MG/DL PROTEIN, TOTAL (test code = 7.2 G/DL 222) ALBUMIN (test code = 2201) 4.2 G/DL CALC GLOBULIN (test code = 3.0 G/DL 2240) CALC A/G RATIO (test code = 1.4 RATIO 2234) BILIRUBIN, TOTAL (test code = 0.6 MG/DL 2207) ALKALINE PHOSPHATASE (test 209 U/L code = 2204) AST (test code = 2218) 16 U/L ALT (test code = 2219) 17 U/L CBC W/AUTO [id number] 00:00:00 Test Item Value Reference Range Interpretation Comments WBC (test code = 1001) 4.8 K/UL RBC (test code = 1002) 4.65 M/UL HEMOGLOBIN (test code = 1003) 14.3 G/DL HEMATOCRIT (test code = 1004) 40.9 % MCV (test code = 1005) 88.0 fL MCH (test code = 1006) 30.8 PG MCHC (test code = 1007) 35.0 G/DL RDW (test code = 1038) 12.6 % NEUTROPHILS (test code = 1008) 69.4 % LYMPHOCYTES (test code = 1010) 19.5 % MONOCYTES (test code = 1011) 10.1 % EOSINOPHILS (test code = 1012) 0.2 % BASOPHILS (test code = 1013) 0.8 % PLATELET COUNT (test code = 1015) 145 K/UL CBC W/AUTO [id number] 00:00:00 Test Item Value Reference Range Interpretation Comments WBC (test code = 1001) 4.8 K/UL RBC (test code = 1002) 4.65 M/UL HEMOGLOBIN (test code = 1003) 14.3 G/DL HEMATOCRIT (test code = 1004) 40.9 % MCV (test code = 1005) 88.0 fL MCH (test code = 1006) 30.8 PG MCHC (test code = 1007) 35.0 G/DL RDW (test code = 1038) 12.6 % NEUTROPHILS (test code = 1008) 69.4 % LYMPHOCYTES (test code = 1010) 19.5 % MONOCYTES (test code = 1011) 10.1 % EOSINOPHILS (test code = 1012) 0.2 % BASOPHILS (test code = 1013) 0.8 % PLATELET COUNT (test code = 1015) 145 K/UL CBC W/AUTO [id number] 00:00:00 Test Item Value Reference Range Interpretation Comments WBC (test code = 1001) 4.8 K/UL RBC (test code = 1002) 4.65 M/UL HEMOGLOBIN (test code = 1003) 14.3 G/DL HEMATOCRIT (test code = 1004) 40.9 % MCV (test code = 1005) 88.0 fL MCH (test code = 1006) 30.8 PG MCHC (test code = 1007) 35.0 G/DL RDW (test code = 1038) 12.6 % NEUTROPHILS (test code = 1008) 69.4 % LYMPHOCYTES (test code = 1010) 19.5 % MONOCYTES (test code = 1011) 10.1 % EOSINOPHILS (test code = 1012) 0.2 % BASOPHILS (test code = 1013) 0.8 % PLATELET COUNT (test code = 1015) 145 K/UL [id number] 00:00:00 Test Item Value Reference Range Interpretation Comments TSH, THIRD GENERATION (test code 2.110 UIU/ML = 2821) [id number] 00:00:00 Test Item Value Reference Range Interpretation Comments TSH, THIRD GENERATION (test code 2.110 UIU/ML = 2821) [id number] 00:00:00 Test Item Value Reference Range Interpretation Comments TSH, THIRD GENERATION (test code 2.110 UIU/ML = 2821) [id number] 00:00:00 Test Item Value Reference Range Interpretation Comments GGT (test code = 2216) 25 U/L [id number] 00:00:00 Test Item Value Reference Range Interpretation Comments GGT (test code = 2216) 25 U/L ACUTE HEPATITIS [id number] 00:00:00 Test Item Value Reference Range Interpretation Comments HEPATITIS A IgM (test code = NON-REACTIVE 78609) HEPATITIS B CORE IgM (test code NON-REACTIVE = 4644) HEPATITIS B SURF AG (test code = NON-REACTIVE 2739) HEPATITIS C ANTIBODY (test code REACTIVE = 4675) HCV INDEX (test code = 91568) 13.68 INTERPRETATION HEPATITIS A: (NOTE) (test code = 2552) INTERPRETATION HEPATITIS B: (NOTE) (test code = 10544) INTERPRETATION HEPATITIS C: (NOTE) (test code = 68146) ACUTE HEPATITIS [id number] 00:00:00 Test Item Value Reference Range Interpretation Comments HEPATITIS A IgM (test code = NON-REACTIVE 56759) HEPATITIS B CORE IgM (test code NON-REACTIVE = 4644) HEPATITIS B SURF AG (test code = NON-REACTIVE 1019) HEPATITIS C ANTIBODY (test code REACTIVE = 4675) HCV INDEX (test code = 57680) 13.68 INTERPRETATION HEPATITIS A: (NOTE) (test code = 2552) INTERPRETATION HEPATITIS B: (NOTE) (test code = 31688) INTERPRETATION HEPATITIS C: (NOTE) (test code = 30930) COMPREHENSIVE METABOLIC [id number] 00:00:00 Test Item Value Reference Range Interpretation Comments GLUCOSE (test code = 2217) 109 MG/DL BUN (test code = 2208) 15 MG/DL CREATININE (test code = 2214) 0.69 MG/DL eGFR AMER. (test code 115 ML/MIN/1.73 = 54055) eGFR NON- AMER. (test 99 ML/MIN/1.73 code = 92197) CALC BUN/CREAT (test code = 22 RATIO 2235) SODIUM (test code = 2231) 139 MEQ/L POTASSIUM (test code = 2228) 4.1 MEQ/L CHLORIDE (test code = 2215) 103 MEQ/L CARBON DIOXIDE (test code = 28 MEQ/L 2206) CALCIUM (test code = 2209) 9.3 MG/DL PROTEIN, TOTAL (test code = 7.2 G/DL 2228) ALBUMIN (test code = 2201) 4.2 G/DL CALC GLOBULIN (test code = 3.0 G/DL 2240) CALC A/G RATIO (test code = 1.4 RATIO 2234) BILIRUBIN, TOTAL (test code = 0.6 MG/DL 2206) ALKALINE PHOSPHATASE (test 209 U/L code = 2204) AST (test code = 2218) 16 U/L ALT (test code = 2219) 17 U/L COMPREHENSIVE METABOLIC [id number] 00:00:00 Test Item Value Reference Range Interpretation Comments GLUCOSE (test code = 2217) 109 MG/DL BUN (test code = 2208) 15 MG/DL CREATININE (test code = 2214) 0.69 MG/DL eGFR AMER. (test code 115 ML/MIN/1.73 = 84386) eGFR NON- AMER. (test 99 ML/MIN/1.73 code = 75838) CALC BUN/CREAT (test code = 22 RATIO 2235) SODIUM (test code = 2231) 139 MEQ/L POTASSIUM (test code = 2228) 4.1 MEQ/L CHLORIDE (test code = 2215) 103 MEQ/L CARBON DIOXIDE (test code = 28 MEQ/L 2205) CALCIUM (test code = 2209) 9.3 MG/DL PROTEIN, TOTAL (test code = 7.2 G/DL 2228) ALBUMIN (test code = 2201) 4.2 G/DL CALC GLOBULIN (test code = 3.0 G/DL 2239) CALC A/G RATIO (test code = 1.4 RATIO 2233) BILIRUBIN, TOTAL (test code = 0.6 MG/DL 2206) ALKALINE PHOSPHATASE (test 209 U/L code = 2204) AST (test code = 2218) 16 U/L ALT (test code = 2219) 17 U/L CBC W/AUTO [id number] 00:00:00 Test Item Value Reference Range Interpretation Comments WBC (test code = 1001) 4.8 K/UL RBC (test code = 1002) 4.65 M/UL HEMOGLOBIN (test code = 1003) 14.3 G/DL HEMATOCRIT (test code = 1004) 40.9 % MCV (test code = 1005) 88.0 fL MCH (test code = 1006) 30.8 PG MCHC (test code = 1007) 35.0 G/DL RDW (test code = 1038) 12.6 % NEUTROPHILS (test code = 1008) 69.4 % LYMPHOCYTES (test code = 1010) 19.5 % MONOCYTES (test code = 1011) 10.1 % EOSINOPHILS (test code = 1012) 0.2 % BASOPHILS (test code = 1013) 0.8 % PLATELET COUNT (test code = 1015) 145 K/UL CBC W/AUTO [id number] 00:00:00 Test Item Value Reference Range Interpretation Comments WBC (test code = 1001) 4.8 K/UL RBC (test code = 1002) 4.65 M/UL HEMOGLOBIN (test code = 1003) 14.3 G/DL HEMATOCRIT (test code = 1004) 40.9 % MCV (test code = 1005) 88.0 fL MCH (test code = 1006) 30.8 PG MCHC (test code = 1007) 35.0 G/DL RDW (test code = 1038) 12.6 % NEUTROPHILS (test code = 1008) 69.4 % LYMPHOCYTES (test code = 1010) 19.5 % MONOCYTES (test code = 1011) 10.1 % EOSINOPHILS (test code = 1012) 0.2 % BASOPHILS (test code = 1013) 0.8 % PLATELET COUNT (test code = 1015) 145 K/UL CBC W/AUTO [id number] 00:00:00 Test Item Value Reference Range Interpretation Comments WBC (test code = 1001) 4.8 K/UL RBC (test code = 1002) 4.65 M/UL HEMOGLOBIN (test code = 1003) 14.3 G/DL HEMATOCRIT (test code = 1004) 40.9 % MCV (test code = 1005) 88.0 fL MCH (test code = 1006) 30.8 PG MCHC (test code = 1007) 35.0 G/DL RDW (test code = 1038) 12.6 % NEUTROPHILS (test code = 1008) 69.4 % LYMPHOCYTES (test code = 1010) 19.5 % MONOCYTES (test code = 1011) 10.1 % EOSINOPHILS (test code = 1012) 0.2 % BASOPHILS (test code = 1013) 0.8 % PLATELET COUNT (test code = 1015) 145 K/UL [id number] 00:00:00 Test Item Value Reference Range Interpretation Comments TSH, THIRD GENERATION (test code 2.110 UIU/ML = 2821) [id number] 00:00:00 Test Item Value Reference Range Interpretation Comments TSH, THIRD GENERATION (test code 2.110 UIU/ML = 2821) [id number] 00:00:00 Test Item Value Reference Range Interpretation Comments TSH, THIRD GENERATION (test code 2.110 UIU/ML = 2821) [id number] 00:00:00 Test Item Value Reference Range Interpretation Comments GGT (test code = 2216) 25 U/L [id number] 00:00:00 Test Item Value Reference Range Interpretation Comments GGT (test code = 2216) 25 U/L ACUTE HEPATITIS [id number] 00:00:00 Test Item Value Reference Range Interpretation Comments HEPATITIS A IgM (test code = NON-REACTIVE 60696) HEPATITIS B CORE IgM (test code NON-REACTIVE = 4644) HEPATITIS B SURF AG (test code = NON-REACTIVE 9299) HEPATITIS C ANTIBODY (test code REACTIVE = 4675) HCV INDEX (test code = 10766) 13.68 INTERPRETATION HEPATITIS A: (NOTE) (test code = 2552) INTERPRETATION HEPATITIS B: (NOTE) (test code = 09818) INTERPRETATION HEPATITIS C: (NOTE) (test code = 33743) LIPID [id number] 00:00:00 Test Item Value Reference Range Interpretation Comments CHOLESTEROL (test code = 2210) 146 MG/DL TRIGLYCERIDES (test code = 2232) 248 MG/DL HDL CHOLESTEROL (test code = 2220) 27 MG/DL CALC LDL CHOL (test code = 2237) 69 MG/DL RISK RATIO LDL/HDL (test code = 2.57 RATIO 2238) COMPREHENSIVE METABOLIC [id number] 00:00:00 Test Item Value Reference Range Interpretation Comments GLUCOSE (test code = 2217) 100 MG/DL BUN (test code = 2208) 11 MG/DL CREATININE (test code = 2214) 0.72 MG/DL eGFR AMER. (test code 111 ML/MIN/1.73 = 62149) eGFR NON- AMER. (test 96 ML/MIN/1.73 code = 89263) CALC BUN/CREAT (test code = 15 RATIO 2235) SODIUM (test code = 2231) 141 MEQ/L POTASSIUM (test code = 2228) 4.2 MEQ/L CHLORIDE (test code = 2215) 102 MEQ/L CARBON DIOXIDE (test code = 30 MEQ/L 2205) CALCIUM (test code = 2209) 10.1 MG/DL PROTEIN, TOTAL (test code = 7.6 G/DL 2228) ALBUMIN (test code = 2201) 4.9 G/DL CALC GLOBULIN (test code = 2.7 G/DL 2240) CALC A/G RATIO (test code = 1.8 RATIO 2234) BILIRUBIN, TOTAL (test code = 0.8 MG/DL 2206) ALKALINE PHOSPHATASE (test 218 U/L code = 2204) AST (test code = 2218) 22 U/L ALT (test code = 2219) 25 U/L HEMOGLOBIN [id number] 00:00:00 Test Item Value Reference Range Interpretation Comments HEMOGLOBIN A1c (test code = 57363) 5.5 % HEMOGLOBIN [id number] 00:00:00 Test Item Value Reference Range Interpretation Comments HEMOGLOBIN A1c (test code = 11685) 5.5 % HEMOGLOBIN [id number] 00:00:00 Test Item Value Reference Range Interpretation Comments HEMOGLOBIN A1c (test code = 71328) 5.5 % LIPID [id number] 00:00:00 Test Item Value Reference Range Interpretation Comments CHOLESTEROL (test code = 2210) 146 MG/DL TRIGLYCERIDES (test code = 2232) 248 MG/DL HDL CHOLESTEROL (test code = 2220) 27 MG/DL CALC LDL CHOL (test code = 2237) 69 MG/DL RISK RATIO LDL/HDL (test code = 2.57 RATIO 2238) LIPID [id number] 00:00:00 Test Item Value Reference Range Interpretation Comments CHOLESTEROL (test code = 2210) 146 MG/DL TRIGLYCERIDES (test code = 2232) 248 MG/DL HDL CHOLESTEROL (test code = 2220) 27 MG/DL CALC LDL CHOL (test code = 2237) 69 MG/DL RISK RATIO LDL/HDL (test code = 2.57 RATIO 2238) COMPREHENSIVE METABOLIC [id number] 00:00:00 Test Item Value Reference Range Interpretation Comments GLUCOSE (test code = 2217) 100 MG/DL BUN (test code = 2208) 11 MG/DL CREATININE (test code = 2214) 0.72 MG/DL eGFR AMER. (test code 111 ML/MIN/1.73 = 96293) eGFR NON- AMER. (test 96 ML/MIN/1.73 code = 64839) CALC BUN/CREAT (test code = 15 RATIO 2235) SODIUM (test code = 2231) 141 MEQ/L POTASSIUM (test code = 2228) 4.2 MEQ/L CHLORIDE (test code = 2215) 102 MEQ/L CARBON DIOXIDE (test code = 30 MEQ/L 2205) CALCIUM (test code = 2209) 10.1 MG/DL PROTEIN, TOTAL (test code = 7.6 G/DL 2228) ALBUMIN (test code = 2201) 4.9 G/DL CALC GLOBULIN (test code = 2.7 G/DL 224) CALC A/G RATIO (test code = 1.8 RATIO 2234) BILIRUBIN, TOTAL (test code = 0.8 MG/DL 2206) ALKALINE PHOSPHATASE (test 218 U/L code = 2204) AST (test code = 2218) 22 U/L ALT (test code = 2219) 25 U/L COMPREHENSIVE METABOLIC [id number] 00:00:00 Test Item Value Reference Range Interpretation Comments GLUCOSE (test code = 2217) 100 MG/DL BUN (test code = 2208) 11 MG/DL CREATININE (test code = 2214) 0.72 MG/DL eGFR AMER. (test code 111 ML/MIN/1.73 = 36126) eGFR NON- AMER. (test 96 ML/MIN/1.73 code = 70231) CALC BUN/CREAT (test code = 15 RATIO 2235) SODIUM (test code = 2231) 141 MEQ/L POTASSIUM (test code = 2228) 4.2 MEQ/L CHLORIDE (test code = 2215) 102 MEQ/L CARBON DIOXIDE (test code = 30 MEQ/L 2205) CALCIUM (test code = 2209) 10.1 MG/DL PROTEIN, TOTAL (test code = 7.6 G/DL 2228) ALBUMIN (test code = 2201) 4.9 G/DL CALC GLOBULIN (test code = 2.7 G/DL 2240) CALC A/G RATIO (test code = 1.8 RATIO 4) BILIRUBIN, TOTAL (test code = 0.8 MG/DL 2206) ALKALINE PHOSPHATASE (test 218 U/L code = 2204) AST (test code = 2218) 22 U/L ALT (test code = 2219) 25 U/L HEMOGLOBIN [id number] 00:00:00 Test Item Value Reference Range Interpretation Comments HEMOGLOBIN A1c (test code = 90913) 5.5 % HEMOGLOBIN [id number] 00:00:00 Test Item Value Reference Range Interpretation Comments HEMOGLOBIN A1c (test code = 38945) 5.5 % HEMOGLOBIN [id number] 00:00:00 Test Item Value Reference Range Interpretation Comments HEMOGLOBIN A1c (test code = 80934) 5.5 % LIPID [id number] 00:00:00 Test Item Value Reference Range Interpretation Comments CHOLESTEROL (test code = 2210) 146 MG/DL TRIGLYCERIDES (test code = 2232) 248 MG/DL HDL CHOLESTEROL (test code = 2220) 27 MG/DL CALC LDL CHOL (test code = 2237) 69 MG/DL RISK RATIO LDL/HDL (test code = 2.57 RATIO 2238) LIPID [id number] 00:00:00 Test Item Value Reference Range Interpretation Comments CHOLESTEROL (test code = 2210) 146 MG/DL TRIGLYCERIDES (test code = 2232) 248 MG/DL HDL CHOLESTEROL (test code = 2220) 27 MG/DL CALC LDL CHOL (test code = 2237) 69 MG/DL RISK RATIO LDL/HDL (test code = 2.57 RATIO 2238) COMPREHENSIVE METABOLIC [id number] 00:00:00 Test Item Value Reference Range Interpretation Comments GLUCOSE (test code = 2217) 100 MG/DL BUN (test code = 2208) 11 MG/DL CREATININE (test code = 2214) 0.72 MG/DL eGFR AMER. (test code 111 ML/MIN/1.73 = 45172) eGFR NON- AMER. (test 96 ML/MIN/1.73 code = 76506) CALC BUN/CREAT (test code = 15 RATIO 2235) SODIUM (test code = 2231) 141 MEQ/L POTASSIUM (test code = 2228) 4.2 MEQ/L CHLORIDE (test code = 2215) 102 MEQ/L CARBON DIOXIDE (test code = 30 MEQ/L 2206) CALCIUM (test code = 2209) 10.1 MG/DL PROTEIN, TOTAL (test code = 7.6 G/DL 2228) ALBUMIN (test code = 2201) 4.9 G/DL CALC GLOBULIN (test code = 2.7 G/DL 2240) CALC A/G RATIO (test code = 1.8 RATIO 2234) BILIRUBIN, TOTAL (test code = 0.8 MG/DL 2206) ALKALINE PHOSPHATASE (test 218 U/L code = 2204) AST (test code = 2218) 22 U/L ALT (test code = 2219) 25 U/L COMPREHENSIVE METABOLIC [id number] 00:00:00 Test Item Value Reference Range Interpretation Comments GLUCOSE (test code = 2217) 100 MG/DL BUN (test code = 2208) 11 MG/DL CREATININE (test code = 2214) 0.72 MG/DL eGFR AMER. (test code 111 ML/MIN/1.73 = 37169) eGFR NON- AMER. (test 96 ML/MIN/1.73 code = 69965) CALC BUN/CREAT (test code = 15 RATIO 2235) SODIUM (test code = 2231) 141 MEQ/L POTASSIUM (test code = 2228) 4.2 MEQ/L CHLORIDE (test code = 2215) 102 MEQ/L CARBON DIOXIDE (test code = 30 MEQ/L 2205) CALCIUM (test code = 2209) 10.1 MG/DL PROTEIN, TOTAL (test code = 7.6 G/DL 2228) ALBUMIN (test code = 2201) 4.9 G/DL CALC GLOBULIN (test code = 2.7 G/DL 224) CALC A/G RATIO (test code = 1.8 RATIO 2234) BILIRUBIN, TOTAL (test code = 0.8 MG/DL 2206) ALKALINE PHOSPHATASE (test 218 U/L code = 2204) AST (test code = 2218) 22 U/L ALT (test code = 2219) 25 U/L HEMOGLOBIN [id number] 00:00:00 Test Item Value Reference Range Interpretation Comments HEMOGLOBIN A1c (test code = 57818) 5.5 % HEMOGLOBIN [id number] 00:00:00 Test Item Value Reference Range Interpretation Comments HEMOGLOBIN A1c (test code = 41578) 5.5 % HEMOGLOBIN [id number] 00:00:00 Test Item Value Reference Range Interpretation Comments HEMOGLOBIN A1c (test code = 10905) 5.5 % LIPID [id number] 00:00:00 Test Item Value Reference Range Interpretation Comments CHOLESTEROL (test code = 2210) 146 MG/DL TRIGLYCERIDES (test code = 2232) 248 MG/DL HDL CHOLESTEROL (test code = 2220) 27 MG/DL CALC LDL CHOL (test code = 2237) 69 MG/DL RISK RATIO LDL/HDL (test code = 2.57 RATIO 2238) LIPID [id number] 00:00:00 Test Item Value Reference Range Interpretation Comments CHOLESTEROL (test code = 2210) 146 MG/DL TRIGLYCERIDES (test code = 2232) 248 MG/DL HDL CHOLESTEROL (test code = 2220) 27 MG/DL CALC LDL CHOL (test code = 2237) 69 MG/DL RISK RATIO LDL/HDL (test code = 2.57 RATIO 2238) COMPREHENSIVE METABOLIC [id number] 00:00:00 Test Item Value Reference Range Interpretation Comments GLUCOSE (test code = 2217) 100 MG/DL BUN (test code = 2208) 11 MG/DL CREATININE (test code = 2214) 0.72 MG/DL eGFR AMER. (test code 111 ML/MIN/1.73 = 55893) eGFR NON- AMER. (test 96 ML/MIN/1.73 code = 17481) CALC BUN/CREAT (test code = 15 RATIO 2235) SODIUM (test code = 2231) 141 MEQ/L POTASSIUM (test code = 2228) 4.2 MEQ/L CHLORIDE (test code = 2215) 102 MEQ/L CARBON DIOXIDE (test code = 30 MEQ/L 220) CALCIUM (test code = 2209) 10.1 MG/DL PROTEIN, TOTAL (test code = 7.6 G/DL 222) ALBUMIN (test code = 2201) 4.9 G/DL CALC GLOBULIN (test code = 2.7 G/DL 2240) CALC A/G RATIO (test code = 1.8 RATIO 2234) BILIRUBIN, TOTAL (test code = 0.8 MG/DL 2206) ALKALINE PHOSPHATASE (test 218 U/L code = 2204) AST (test code = 2218) 22 U/L ALT (test code = 2219) 25 U/L COMPREHENSIVE METABOLIC [id number] 00:00:00 Test Item Value Reference Range Interpretation Comments GLUCOSE (test code = 2217) 100 MG/DL BUN (test code = 2208) 11 MG/DL CREATININE (test code = 2214) 0.72 MG/DL eGFR AMER. (test code 111 ML/MIN/1.73 = 64133) eGFR NON- AMER. (test 96 ML/MIN/1.73 code = 82548) CALC BUN/CREAT (test code = 15 RATIO 2235) SODIUM (test code = 2231) 141 MEQ/L POTASSIUM (test code = 2228) 4.2 MEQ/L CHLORIDE (test code = 2215) 102 MEQ/L CARBON DIOXIDE (test code = 30 MEQ/L 2206) CALCIUM (test code = 2209) 10.1 MG/DL PROTEIN, TOTAL (test code = 7.6 G/DL 2228) ALBUMIN (test code = 2201) 4.9 G/DL CALC GLOBULIN (test code = 2.7 G/DL 2240) CALC A/G RATIO (test code = 1.8 RATIO 2234) BILIRUBIN, TOTAL (test code = 0.8 MG/DL 2206) ALKALINE PHOSPHATASE (test 218 U/L code = 2204) AST (test code = 2218) 22 U/L ALT (test code = 2219) 25 U/L HEMOGLOBIN [id number] 00:00:00 Test Item Value Reference Range Interpretation Comments HEMOGLOBIN A1c (test code = 30794) 5.5 % HEMOGLOBIN [id number] 00:00:00 Test Item Value Reference Range Interpretation Comments HEMOGLOBIN A1c (test code = 54673) 5.5 % HEMOGLOBIN [id number] 00:00:00 Test Item Value Reference Range Interpretation Comments HEMOGLOBIN A1c (test code = 64649) 5.5 % LIPID [id number] 00:00:00 Test Item Value Reference Range Interpretation Comments CHOLESTEROL (test code = 2210) 146 MG/DL TRIGLYCERIDES (test code = 2232) 248 MG/DL HDL CHOLESTEROL (test code = 2220) 27 MG/DL CALC LDL CHOL (test code = 2237) 69 MG/DL RISK RATIO LDL/HDL (test code = 2.57 RATIO 2238) LIPID [id number] 00:00:00 Test Item Value Reference Range Interpretation Comments CHOLESTEROL (test code = 2210) 146 MG/DL TRIGLYCERIDES (test code = 2232) 248 MG/DL HDL CHOLESTEROL (test code = 2220) 27 MG/DL CALC LDL CHOL (test code = 2237) 69 MG/DL RISK RATIO LDL/HDL (test code = 2.57 RATIO 2238) COMPREHENSIVE METABOLIC [id number] 00:00:00 Test Item Value Reference Range Interpretation Comments GLUCOSE (test code = 2217) 100 MG/DL BUN (test code = 2208) 11 MG/DL CREATININE (test code = 2214) 0.72 MG/DL eGFR AMER. (test code 111 ML/MIN/1.73 = 66801) eGFR NON- AMER. (test 96 ML/MIN/1.73 code = 05745) CALC BUN/CREAT (test code = 15 RATIO 2235) SODIUM (test code = 2231) 141 MEQ/L POTASSIUM (test code = 2228) 4.2 MEQ/L CHLORIDE (test code = 2215) 102 MEQ/L CARBON DIOXIDE (test code = 30 MEQ/L 6) CALCIUM (test code = 2209) 10.1 MG/DL PROTEIN, TOTAL (test code = 7.6 G/DL 2229) ALBUMIN (test code = 2201) 4.9 G/DL CALC GLOBULIN (test code = 2.7 G/DL 2240) CALC A/G RATIO (test code = 1.8 RATIO 2234) BILIRUBIN, TOTAL (test code = 0.8 MG/DL 2207) ALKALINE PHOSPHATASE (test 218 U/L code = 2204) AST (test code = 2218) 22 U/L ALT (test code = 2219) 25 U/L COMPREHENSIVE METABOLIC [id number] 00:00:00 Test Item Value Reference Range Interpretation Comments GLUCOSE (test code = 2217) 100 MG/DL BUN (test code = 2208) 11 MG/DL CREATININE (test code = 2214) 0.72 MG/DL eGFR AMER. (test code 111 ML/MIN/1.73 = 84188) eGFR NON- AMER. (test 96 ML/MIN/1.73 code = 27755) CALC BUN/CREAT (test code = 15 RATIO 2235) SODIUM (test code = 2231) 141 MEQ/L POTASSIUM (test code = 2228) 4.2 MEQ/L CHLORIDE (test code = 2215) 102 MEQ/L CARBON DIOXIDE (test code = 30 MEQ/L 2205) CALCIUM (test code = 2209) 10.1 MG/DL PROTEIN, TOTAL (test code = 7.6 G/DL 2229) ALBUMIN (test code = 2201) 4.9 G/DL CALC GLOBULIN (test code = 2.7 G/DL 2240) CALC A/G RATIO (test code = 1.8 RATIO 2234) BILIRUBIN, TOTAL (test code = 0.8 MG/DL 2207) ALKALINE PHOSPHATASE (test 218 U/L code = 2204) AST (test code = 2218) 22 U/L ALT (test code = 2219) 25 U/L HEMOGLOBIN [id number] 00:00:00 Test Item Value Reference Range Interpretation Comments HEMOGLOBIN A1c (test code = 02834) 5.5 % HEMOGLOBIN [id number] 00:00:00 Test Item Value Reference Range Interpretation Comments HEMOGLOBIN A1c (test code = 84425) 5.5 % HEMOGLOBIN [id number] 00:00:00 Test Item Value Reference Range Interpretation Comments HEMOGLOBIN A1c (test code = 20718) 5.5 % LIPID [id number] 00:00:00 Test Item Value Reference Range Interpretation Comments CHOLESTEROL (test code = 2210) 146 MG/DL TRIGLYCERIDES (test code = 2232) 248 MG/DL HDL CHOLESTEROL (test code = 2220) 27 MG/DL CALC LDL CHOL (test code = 2237) 69 MG/DL RISK RATIO LDL/HDL (test code = 2.57 RATIO 2238) LIPID [id number] 00:00:00 Test Item Value Reference Range Interpretation Comments CHOLESTEROL (test code = 2210) 146 MG/DL TRIGLYCERIDES (test code = 2232) 248 MG/DL HDL CHOLESTEROL (test code = 2220) 27 MG/DL CALC LDL CHOL (test code = 2237) 69 MG/DL RISK RATIO LDL/HDL (test code = 2.57 RATIO 2238) COMPREHENSIVE METABOLIC [id number] 00:00:00 Test Item Value Reference Range Interpretation Comments GLUCOSE (test code = 2217) 100 MG/DL BUN (test code = 2208) 11 MG/DL CREATININE (test code = 2214) 0.72 MG/DL eGFR AMER. (test code 111 ML/MIN/1.73 = 87880) eGFR NON- AMER. (test 96 ML/MIN/1.73 code = 74916) CALC BUN/CREAT (test code = 15 RATIO 2235) SODIUM (test code = 2231) 141 MEQ/L POTASSIUM (test code = 2228) 4.2 MEQ/L CHLORIDE (test code = 2215) 102 MEQ/L CARBON DIOXIDE (test code = 30 MEQ/L 2205) CALCIUM (test code = 2209) 10.1 MG/DL PROTEIN, TOTAL (test code = 7.6 G/DL 2228) ALBUMIN (test code = 2201) 4.9 G/DL CALC GLOBULIN (test code = 2.7 G/DL 2240) CALC A/G RATIO (test code = 1.8 RATIO 2234) BILIRUBIN, TOTAL (test code = 0.8 MG/DL 2206) ALKALINE PHOSPHATASE (test 218 U/L code = 2204) AST (test code = 2218) 22 U/L ALT (test code = 2219) 25 U/L COMPREHENSIVE METABOLIC [id number] 00:00:00 Test Item Value Reference Range Interpretation Comments GLUCOSE (test code = 2217) 100 MG/DL BUN (test code = 2208) 11 MG/DL CREATININE (test code = 2214) 0.72 MG/DL eGFR AMER. (test code 111 ML/MIN/1.73 = 47901) eGFR NON- AMER. (test 96 ML/MIN/1.73 code = 65896) CALC BUN/CREAT (test code = 15 RATIO 2235) SODIUM (test code = 2231) 141 MEQ/L POTASSIUM (test code = 2228) 4.2 MEQ/L CHLORIDE (test code = 2215) 102 MEQ/L CARBON DIOXIDE (test code = 30 MEQ/L 2205) CALCIUM (test code = 2209) 10.1 MG/DL PROTEIN, TOTAL (test code = 7.6 G/DL 2228) ALBUMIN (test code = 2201) 4.9 G/DL CALC GLOBULIN (test code = 2.7 G/DL 2240) CALC A/G RATIO (test code = 1.8 RATIO 2233) BILIRUBIN, TOTAL (test code = 0.8 MG/DL 2206) ALKALINE PHOSPHATASE (test 218 U/L code = 2204) AST (test code = 2218) 22 U/L ALT (test code = 2219) 25 U/L HEMOGLOBIN [id number] 00:00:00 Test Item Value Reference Range Interpretation Comments HEMOGLOBIN A1c (test code = 31239) 5.5 % HEMOGLOBIN [id number] 00:00:00 Test Item Value Reference Range Interpretation Comments HEMOGLOBIN A1c (test code = 20406) 5.5 % PAP TEST, THINPREP, [id number] 00:00:00 Test Item Value Reference Range Interpretation Comments SOURCE: (test code = Cervical/Endocervical 8001) SLIDES: (test code = 1 8011) LMP: (test code = SEE NOTE 8021) SPECIMEN ADEQUACY: (NOTE) (test code = 80094) INTERPRETATION: (test NO EPITHELIAL code = 90622) ABNORMALITY SEE [employer]ICAL OFFICER: Laure (test code = 8101) CHANEL Eaton(ASCP)IAC LOCATION: (test code (NOTE) = 82610) CPT: (test code = (NOTE) 8140) PAP TEST, THINPREP, [id number] 00:00:00 Test Item Value Reference Range Interpretation Comments SOURCE: (test code = Cervical/Endocervical 8001) SLIDES: (test code = 1 8011) LMP: (test code = SEE NOTE 8021) SPECIMEN ADEQUACY: (NOTE) (test code = 00521) INTERPRETATION: (test NO EPITHELIAL code = 58381) ABNORMALITY SEE [employer] TECH[employer]ICAL OFFICER: Laure (test code = 8101) [place](ASCP)IAC LOCATION: (test code (NOTE) = 38513) CPT: (test code = (NOTE) 8140) PAP TEST, THINPREP, [id number] 00:00:00 Test Item Value Reference Range Interpretation Comments SOURCE: (test code = Cervical/Endocervical 8001) SLIDES: (test code = 1 8011) LMP: (test code = SEE NOTE 8021) SPECIMEN ADEQUACY: (NOTE) (test code = 69704) INTERPRETATION: (test NO EPITHELIAL code = 71264) ABNORMALITY SEE [employer]ICAL OFFICER: Laure (test code = 8101) [place](ASCP)IAC LOCATION: (test code (NOTE) = 69083) CPT: (test code = (NOTE) 8140) PAP TEST, THINPREP, [id number] 00:00:00 Test Item Value Reference Range Interpretation Comments SOURCE: (test code = Cervical/Endocervical 8001) SLIDES: (test code = 1 8011) LMP: (test code = SEE NOTE 8021) SPECIMEN ADEQUACY: (NOTE) (test code = 05690) INTERPRETATION: (test NO EPITHELIAL code = 84111) ABNORMALITY SEE [employer] TECH[employer]ICAL OFFICER: Laure (test code = 8101) [place](ASCP)IAC LOCATION: (test code (NOTE) = 36227) CPT: (test code = (NOTE) 8140) PAP TEST, THINPREP, [id number] 00:00:00 Test Item Value Reference Range Interpretation Comments SOURCE: (test code = Cervical/Endocervical 8001) SLIDES: (test code = 1 8011) LMP: (test code = SEE NOTE 8021) SPECIMEN ADEQUACY: (NOTE) (test code = 35374) INTERPRETATION: (test NO EPITHELIAL code = 09835) ABNORMALITY SEE [employer] TECH[employer]ICAL OFFICER: Laure (test code = 8101) [place](ASCP)IAC LOCATION: (test code (NOTE) = 43811) CPT: (test code = (NOTE) 8140) PAP TEST, THINPREP, [id number] 00:00:00 Test Item Value Reference Range Interpretation Comments SOURCE: (test code = Cervical/Endocervical 8001) SLIDES: (test code = 1 8011) LMP: (test code = SEE NOTE 8021) SPECIMEN ADEQUACY: (NOTE) (test code = 20340) INTERPRETATION: (test NO EPITHELIAL code = 45316) ABNORMALITY SEE [employer] TECH[employer]ICAL OFFICER: Laure (test code = 8101) [place](ASCP)IAC LOCATION: (test code (NOTE) = 07414) CPT: (test code = (NOTE) 8140) PAP TEST, THINPREP, [id number] 00:00:00 Test Item Value Reference Range Interpretation Comments SOURCE: (test code = Cervical/Endocervical 8001) SLIDES: (test code = 1 8011) LMP: (test code = SEE NOTE 8021) SPECIMEN ADEQUACY: (NOTE) (test code = 65797) INTERPRETATION: (test NO EPITHELIAL code = 78529) ABNORMALITY SEE [employer] TECH[employer]ICAL OFFICER: Laure (test code = 8101) [place](ASCP)IAC LOCATION: (test code (NOTE) = 72052) CPT: (test code = (NOTE) 8140) PAP TEST, THINPREP, [id number] 00:00:00 Test Item Value Reference Range Interpretation Comments SOURCE: (test code = Cervical/Endocervical 8001) SLIDES: (test code = 1 8011) LMP: (test code = SEE NOTE 8021) SPECIMEN ADEQUACY: (NOTE) (test code = 55949) INTERPRETATION: (test NO EPITHELIAL code = 11244) ABNORMALITY SEE [employer] TECH[employer]ICAL OFFICER: Laure (test code = 8101) [place](ASCP)IAC LOCATION: (test code (NOTE) = 72330) CPT: (test code = (NOTE) 8140) PAP TEST, THINPREP, [id number] 00:00:00 Test Item Value Reference Range Interpretation Comments SOURCE: (test code = Cervical/Endocervical 8001) SLIDES: (test code = 1 8011) LMP: (test code = SEE NOTE 8021) SPECIMEN ADEQUACY: (NOTE) (test code = 73699) INTERPRETATION: (test NO EPITHELIAL code = 78082) ABNORMALITY SEE [employer] TECH[employer]ICAL OFFICER: Laure (test code = 8101) [place](ASCP)IAC LOCATION: (test code (NOTE) = 35333) CPT: (test code = (NOTE) 8140) PAP TEST, THINPREP, [id number] 00:00:00 Test Item Value Reference Range Interpretation Comments SOURCE: (test code = Cervical/Endocervical 8001) SLIDES: (test code = 1 8011) LMP: (test code = SEE NOTE 8021) SPECIMEN ADEQUACY: (NOTE) (test code = 46402) INTERPRETATION: (test NO EPITHELIAL code = 44781) ABNORMALITY SEE [employer] TECH[employer]ICAL OFFICER: Laure (test code = 8101) [place](ASCP)IAC LOCATION: (test code (NOTE) = 09728) CPT: (test code = (NOTE) 8140) PAP TEST, THINPREP, [id number] 00:00:00 Test Item Value Reference Range Interpretation Comments SOURCE: (test code = Cervical/Endocervical 8001) SLIDES: (test code = 1 8011) LMP: (test code = SEE NOTE 8021) SPECIMEN ADEQUACY: (NOTE) (test code = 67952) INTERPRETATION: (test NO EPITHELIAL code = 22723) ABNORMALITY SEE [employer] TECH[employer]ICAL OFFICER: Laure (test code = 8101) [place](ASCP)IAC LOCATION: (test code (NOTE) = 11390) CPT: (test code = (NOTE) 8140) HPV HIGH RISK WITH GENOTYPE, [id number] 00:00:00 Test Item Value Reference Range Interpretation Comments HPV HIGH RISK INTERP (test code = NEGATIVE 98260) HPV 16 (test code = 40371) NEGATIVE HPV 18 (test code = 56752) NEGATIVE HPV, HR, OTHER GENOTYPES (test code NEGATIVE = 74167) HPV HIGH RISK WITH GENOTYPE, [id number] 00:00:00 Test Item Value Reference Range Interpretation Comments HPV HIGH RISK INTERP (test code = NEGATIVE 47173) HPV 16 (test code = 09123) NEGATIVE HPV 18 (test code = 30821) NEGATIVE HPV, HR, OTHER GENOTYPES (test code NEGATIVE = 98640) HPV HIGH RISK WITH GENOTYPE, [id number] 00:00:00 Test Item Value Reference Range Interpretation Comments HPV HIGH RISK INTERP (test code = NEGATIVE 07536) HPV 16 (test code = 53687) NEGATIVE HPV 18 (test code = 09985) NEGATIVE HPV, HR, OTHER GENOTYPES (test code NEGATIVE = 92370) HPV HIGH RISK WITH GENOTYPE, [id number] 00:00:00 Test Item Value Reference Range Interpretation Comments HPV HIGH RISK INTERP (test code = NEGATIVE 73766) HPV 16 (test code = 92947) NEGATIVE HPV 18 (test code = 68341) NEGATIVE HPV, HR, OTHER GENOTYPES (test code NEGATIVE = 99054) HPV HIGH RISK WITH GENOTYPE, [id number] 00:00:00 Test Item Value Reference Range Interpretation Comments HPV HIGH RISK INTERP (test code = NEGATIVE 07424) HPV 16 (test code = 21238) NEGATIVE HPV 18 (test code = 90157) NEGATIVE HPV, HR, OTHER GENOTYPES (test code NEGATIVE = 24137) HPV HIGH RISK WITH GENOTYPE, [id number] 00:00:00 Test Item Value Reference Range Interpretation Comments HPV HIGH RISK INTERP (test code = NEGATIVE 15812) HPV 16 (test code = 36923) NEGATIVE HPV 18 (test code = 77432) NEGATIVE HPV, HR, OTHER GENOTYPES (test code NEGATIVE = 12070) HPV HIGH RISK WITH GENOTYPE, [id number] 00:00:00 Test Item Value Reference Range Interpretation Comments HPV HIGH RISK INTERP (test code = NEGATIVE 50181) HPV 16 (test code = 31870) NEGATIVE HPV 18 (test code = 49275) NEGATIVE HPV, HR, OTHER GENOTYPES (test code NEGATIVE = 12005) HPV HIGH RISK WITH GENOTYPE, [id number] 00:00:00 Test Item Value Reference Range Interpretation Comments HPV HIGH RISK INTERP (test code = NEGATIVE 75069) HPV 16 (test code = 14223) NEGATIVE HPV 18 (test code = 30149) NEGATIVE HPV, HR, OTHER GENOTYPES (test code NEGATIVE = 33956) HPV HIGH RISK WITH GENOTYPE, [id number] 00:00:00 Test Item Value Reference Range Interpretation Comments HPV HIGH RISK INTERP (test code = NEGATIVE 46530) HPV 16 (test code = 99068) NEGATIVE HPV 18 (test code = 52490) NEGATIVE HPV, HR, OTHER GENOTYPES (test code NEGATIVE = 36183) HPV HIGH RISK WITH GENOTYPE, [id number] 00:00:00 Test Item Value Reference Range Interpretation Comments HPV HIGH RISK INTERP (test code = NEGATIVE 70353) HPV 16 (test code = 16747) NEGATIVE HPV 18 (test code = 95356) NEGATIVE HPV, HR, OTHER GENOTYPES (test code NEGATIVE = 15295) HPV HIGH RISK WITH GENOTYPE, [id number] 00:00:00 Test Item Value Reference Range Interpretation Comments HPV HIGH RISK INTERP (test code = NEGATIVE 80925) HPV 16 (test code = 32640) NEGATIVE HPV 18 (test code = 68799) NEGATIVE HPV, HR, OTHER GENOTYPES (test code NEGATIVE = 54320) CBC W/AUTO [id number] 00:00:00 Test Item Value Reference Range Interpretation Comments WBC (test code = 1001) 3.4 K/UL RBC (test code = 1002) 4.54 M/UL HEMOGLOBIN (test code = 1003) 13.7 G/DL HEMATOCRIT (test code = 1004) 41.0 % MCV (test code = 1005) 90.3 fL MCH (test code = 1006) 30.2 PG MCHC (test code = 1007) 33.4 G/DL RDW (test code = 1038) 12.4 % NEUTROPHILS (test code = 1008) 63.1 % LYMPHOCYTES (test code = 1010) 24.8 % MONOCYTES (test code = 1011) 10.9 % EOSINOPHILS (test code = 1012) 0.3 % BASOPHILS (test code = 1013) 0.9 % PLATELET COUNT (test code = 1015) 164 K/UL CBC W/AUTO [id number] 00:00:00 Test Item Value Reference Range Interpretation Comments WBC (test code = 1001) 3.4 K/UL RBC (test code = 1002) 4.54 M/UL HEMOGLOBIN (test code = 1003) 13.7 G/DL HEMATOCRIT (test code = 1004) 41.0 % MCV (test code = 1005) 90.3 fL MCH (test code = 1006) 30.2 PG MCHC (test code = 1007) 33.4 G/DL RDW (test code = 1038) 12.4 % NEUTROPHILS (test code = 1008) 63.1 % LYMPHOCYTES (test code = 1010) 24.8 % MONOCYTES (test code = 1011) 10.9 % EOSINOPHILS (test code = 1012) 0.3 % BASOPHILS (test code = 1013) 0.9 % PLATELET COUNT (test code = 1015) 164 K/UL COMPREHENSIVE METABOLIC [id number] 00:00:00 Test Item Value Reference Range Interpretation Comments GLUCOSE (test code = 2217) 95 MG/DL BUN (test code = 2208) 19 MG/DL CREATININE (test code = 2214) 0.62 MG/DL eGFR AMER. (test code 121 ML/MIN/1.73 = 30817) eGFR NON- AMER. (test 104 ML/MIN/1.73 code = 19513) CALC BUN/CREAT (test code = 31 RATIO 2235) SODIUM (test code = 2231) 141 MEQ/L POTASSIUM (test code = 2228) 4.6 MEQ/L CHLORIDE (test code = 2215) 102 MEQ/L CARBON DIOXIDE (test code = 26 MEQ/L 2205) CALCIUM (test code = 2209) 9.4 MG/DL PROTEIN, TOTAL (test code = 7.2 G/DL 2228) ALBUMIN (test code = 2201) 4.2 G/DL CALC GLOBULIN (test code = 3.0 G/DL 2240) CALC A/G RATIO (test code = 1.4 RATIO 4) BILIRUBIN, TOTAL (test code = 0.5 MG/DL 2206) ALKALINE PHOSPHATASE (test 153 U/L code = 2204) AST (test code = 2218) 19 U/L ALT (test code = 2219) 20 U/L LIPID [id number] 00:00:00 Test Item Value Reference Range Interpretation Comments CHOLESTEROL (test code = 2210) 175 MG/DL TRIGLYCERIDES (test code = 2232) 107 MG/DL HDL CHOLESTEROL (test code = 2220) 44 MG/DL CALC LDL CHOL (test code = 2237) 110 MG/DL RISK RATIO LDL/HDL (test code = 2.49 RATIO 2238) THYROID II PROFILE (T3U, T4, T7, [id number] 00:00:00 Test Item Value Reference Range Interpretation Comments T3 UPTAKE (test code = 2817) 28.7 % T4 (THYROXINE) (test code = 2819) 8.9 UG/DL CALCULATED T7 (FTI) (test code = 2.55 2820) TSH (test code = 2821) 1.0 UIU/ML HEMOGLOBIN [id number] 00:00:00 Test Item Value Reference Range Interpretation Comments HEMOGLOBIN A1c (test code = 01509) 5.6 % HEMOGLOBIN [id number] 00:00:00 Test Item Value Reference Range Interpretation Comments HEMOGLOBIN A1c (test code = 06022) 5.6 % HEMOGLOBIN [id number] 00:00:00 Test Item Value Reference Range Interpretation Comments HEMOGLOBIN A1c (test code = 78480) 5.6 % CBC W/AUTO [id number] 00:00:00 Test Item Value Reference Range Interpretation Comments WBC (test code = 1001) 3.4 K/UL RBC (test code = 1002) 4.54 M/UL HEMOGLOBIN (test code = 1003) 13.7 G/DL HEMATOCRIT (test code = 1004) 41.0 % MCV (test code = 1005) 90.3 fL MCH (test code = 1006) 30.2 PG MCHC (test code = 1007) 33.4 G/DL RDW (test code = 1038) 12.4 % NEUTROPHILS (test code = 1008) 63.1 % LYMPHOCYTES (test code = 1010) 24.8 % MONOCYTES (test code = 1011) 10.9 % EOSINOPHILS (test code = 1012) 0.3 % BASOPHILS (test code = 1013) 0.9 % PLATELET COUNT (test code = 1015) 164 K/UL CBC W/AUTO [id number] 00:00:00 Test Item Value Reference Range Interpretation Comments WBC (test code = 1001) 3.4 K/UL RBC (test code = 1002) 4.54 M/UL HEMOGLOBIN (test code = 1003) 13.7 G/DL HEMATOCRIT (test code = 1004) 41.0 % MCV (test code = 1005) 90.3 fL MCH (test code = 1006) 30.2 PG MCHC (test code = 1007) 33.4 G/DL RDW (test code = 1038) 12.4 % NEUTROPHILS (test code = 1008) 63.1 % LYMPHOCYTES (test code = 1010) 24.8 % MONOCYTES (test code = 1011) 10.9 % EOSINOPHILS (test code = 1012) 0.3 % BASOPHILS (test code = 1013) 0.9 % PLATELET COUNT (test code = 1015) 164 K/UL CBC W/AUTO [id number] 00:00:00 Test Item Value Reference Range Interpretation Comments WBC (test code = 1001) 3.4 K/UL RBC (test code = 1002) 4.54 M/UL HEMOGLOBIN (test code = 1003) 13.7 G/DL HEMATOCRIT (test code = 1004) 41.0 % MCV (test code = 1005) 90.3 fL MCH (test code = 1006) 30.2 PG MCHC (test code = 1007) 33.4 G/DL RDW (test code = 1038) 12.4 % NEUTROPHILS (test code = 1008) 63.1 % LYMPHOCYTES (test code = 1010) 24.8 % MONOCYTES (test code = 1011) 10.9 % EOSINOPHILS (test code = 1012) 0.3 % BASOPHILS (test code = 1013) 0.9 % PLATELET COUNT (test code = 1015) 164 K/UL COMPREHENSIVE METABOLIC [id number] 00:00:00 Test Item Value Reference Range Interpretation Comments GLUCOSE (test code = 2217) 95 MG/DL BUN (test code = 2208) 19 MG/DL CREATININE (test code = 2214) 0.62 MG/DL eGFR AMER. (test code 121 ML/MIN/1.73 = 66390) eGFR NON- AMER. (test 104 ML/MIN/1.73 code = 42185) CALC BUN/CREAT (test code = 31 RATIO 2235) SODIUM (test code = 2231) 141 MEQ/L POTASSIUM (test code = 2228) 4.6 MEQ/L CHLORIDE (test code = 2215) 102 MEQ/L CARBON DIOXIDE (test code = 26 MEQ/L 2206) CALCIUM (test code = 2209) 9.4 MG/DL PROTEIN, TOTAL (test code = 7.2 G/DL 2228) ALBUMIN (test code = 2201) 4.2 G/DL CALC GLOBULIN (test code = 3.0 G/DL 2240) CALC A/G RATIO (test code = 1.4 RATIO 2234) BILIRUBIN, TOTAL (test code = 0.5 MG/DL 2206) ALKALINE PHOSPHATASE (test 153 U/L code = 2204) AST (test code = 2218) 19 U/L ALT (test code = 2219) 20 U/L COMPREHENSIVE METABOLIC [id number] 00:00:00 Test Item Value Reference Range Interpretation Comments GLUCOSE (test code = 2217) 95 MG/DL BUN (test code = 2208) 19 MG/DL CREATININE (test code = 2214) 0.62 MG/DL eGFR AMER. (test code 121 ML/MIN/1.73 = 42456) eGFR NON- AMER. (test 104 ML/MIN/1.73 code = 20751) CALC BUN/CREAT (test code = 31 RATIO 2235) SODIUM (test code = 2231) 141 MEQ/L POTASSIUM (test code = 2228) 4.6 MEQ/L CHLORIDE (test code = 2215) 102 MEQ/L CARBON DIOXIDE (test code = 26 MEQ/L 220) CALCIUM (test code = 2209) 9.4 MG/DL PROTEIN, TOTAL (test code = 7.2 G/DL 222) ALBUMIN (test code = 2201) 4.2 G/DL CALC GLOBULIN (test code = 3.0 G/DL 2240) CALC A/G RATIO (test code = 1.4 RATIO 2234) BILIRUBIN, TOTAL (test code = 0.5 MG/DL 220) ALKALINE PHOSPHATASE (test 153 U/L code = 2204) AST (test code = 2218) 19 U/L ALT (test code = 2219) 20 U/L LIPID [id number] 00:00:00 Test Item Value Reference Range Interpretation Comments CHOLESTEROL (test code = 2210) 175 MG/DL TRIGLYCERIDES (test code = 2232) 107 MG/DL HDL CHOLESTEROL (test code = 2220) 44 MG/DL CALC LDL CHOL (test code = 2237) 110 MG/DL RISK RATIO LDL/HDL (test code = 2.49 RATIO 2238) LIPID [id number] 00:00:00 Test Item Value Reference Range Interpretation Comments CHOLESTEROL (test code = 2210) 175 MG/DL TRIGLYCERIDES (test code = 2232) 107 MG/DL HDL CHOLESTEROL (test code = 2220) 44 MG/DL CALC LDL CHOL (test code = 2237) 110 MG/DL RISK RATIO LDL/HDL (test code = 2.49 RATIO 2238) THYROID II PROFILE (T3U, T4, T7, TSH)[id number] 00:00:00 Test Item Value Reference Range Interpretation Comments T3 UPTAKE (test code = 2817) 28.7 % T4 (THYROXINE) (test code = 2819) 8.9 UG/DL CALCULATED T7 (FTI) (test code = 2.55 2820) TSH (test code = 2821) 1.0 UIU/ML THYROID II PROFILE (T3U, T4, T7, TSH)2016-10-26 00:00:00 Test Item Value Reference Range Interpretation Comments T3 UPTAKE (test code = 2817) 28.7 % T4 (THYROXINE) (test code = 2819) 8.9 UG/DL CALCULATED T7 (FTI) (test code = 2.55 2820) TSH (test code = 2821) 1.0 UIU/ML HEMOGLOBIN [id number] 00:00:00 Test Item Value Reference Range Interpretation Comments HEMOGLOBIN A1c (test code = 07009) 5.6 % HEMOGLOBIN [id number] 00:00:00 Test Item Value Reference Range Interpretation Comments HEMOGLOBIN A1c (test code = 72279) 5.6 % HEMOGLOBIN [id number] 00:00:00 Test Item Value Reference Range Interpretation Comments HEMOGLOBIN A1c (test code = 59820) 5.6 % CBC W/AUTO [id number] 00:00:00 Test Item Value Reference Range Interpretation Comments WBC (test code = 1001) 3.4 K/UL RBC (test code = 1002) 4.54 M/UL HEMOGLOBIN (test code = 1003) 13.7 G/DL HEMATOCRIT (test code = 1004) 41.0 % MCV (test code = 1005) 90.3 fL MCH (test code = 1006) 30.2 PG MCHC (test code = 1007) 33.4 G/DL RDW (test code = 1038) 12.4 % NEUTROPHILS (test code = 1008) 63.1 % LYMPHOCYTES (test code = 1010) 24.8 % MONOCYTES (test code = 1011) 10.9 % EOSINOPHILS (test code = 1012) 0.3 % BASOPHILS (test code = 1013) 0.9 % PLATELET COUNT (test code = 1015) 164 K/UL CBC W/AUTO [id number] 00:00:00 Test Item Value Reference Range Interpretation Comments WBC (test code = 1001) 3.4 K/UL RBC (test code = 1002) 4.54 M/UL HEMOGLOBIN (test code = 1003) 13.7 G/DL HEMATOCRIT (test code = 1004) 41.0 % MCV (test code = 1005) 90.3 fL MCH (test code = 1006) 30.2 PG MCHC (test code = 1007) 33.4 G/DL RDW (test code = 1038) 12.4 % NEUTROPHILS (test code = 1008) 63.1 % LYMPHOCYTES (test code = 1010) 24.8 % MONOCYTES (test code = 1011) 10.9 % EOSINOPHILS (test code = 1012) 0.3 % BASOPHILS (test code = 1013) 0.9 % PLATELET COUNT (test code = 1015) 164 K/UL CBC W/AUTO [id number] 00:00:00 Test Item Value Reference Range Interpretation Comments WBC (test code = 1001) 3.4 K/UL RBC (test code = 1002) 4.54 M/UL HEMOGLOBIN (test code = 1003) 13.7 G/DL HEMATOCRIT (test code = 1004) 41.0 % MCV (test code = 1005) 90.3 fL MCH (test code = 1006) 30.2 PG MCHC (test code = 1007) 33.4 G/DL RDW (test code = 1038) 12.4 % NEUTROPHILS (test code = 1008) 63.1 % LYMPHOCYTES (test code = 1010) 24.8 % MONOCYTES (test code = 1011) 10.9 % EOSINOPHILS (test code = 1012) 0.3 % BASOPHILS (test code = 1013) 0.9 % PLATELET COUNT (test code = 1015) 164 K/UL COMPREHENSIVE METABOLIC [id number] 00:00:00 Test Item Value Reference Range Interpretation Comments GLUCOSE (test code = 2217) 95 MG/DL BUN (test code = 2208) 19 MG/DL CREATININE (test code = 2214) 0.62 MG/DL eGFR AMER. (test code 121 ML/MIN/1.73 = 61122) eGFR NON- AMER. (test 104 ML/MIN/1.73 code = 26717) CALC BUN/CREAT (test code = 31 RATIO 2235) SODIUM (test code = 2231) 141 MEQ/L POTASSIUM (test code = 2228) 4.6 MEQ/L CHLORIDE (test code = 2215) 102 MEQ/L CARBON DIOXIDE (test code = 26 MEQ/L 220) CALCIUM (test code = 2209) 9.4 MG/DL PROTEIN, TOTAL (test code = 7.2 G/DL 2228) ALBUMIN (test code = 2201) 4.2 G/DL CALC GLOBULIN (test code = 3.0 G/DL 2240) CALC A/G RATIO (test code = 1.4 RATIO 2234) BILIRUBIN, TOTAL (test code = 0.5 MG/DL 2206) ALKALINE PHOSPHATASE (test 153 U/L code = 2204) AST (test code = 2218) 19 U/L ALT (test code = 2219) 20 U/L COMPREHENSIVE METABOLIC [id number] 00:00:00 Test Item Value Reference Range Interpretation Comments GLUCOSE (test code = 2217) 95 MG/DL BUN (test code = 2208) 19 MG/DL CREATININE (test code = 2214) 0.62 MG/DL eGFR AMER. (test code 121 ML/MIN/1.73 = 05579) eGFR NON- AMER. (test 104 ML/MIN/1.73 code = 44458) CALC BUN/CREAT (test code = 31 RATIO 2235) SODIUM (test code = 2231) 141 MEQ/L POTASSIUM (test code = 2228) 4.6 MEQ/L CHLORIDE (test code = 2215) 102 MEQ/L CARBON DIOXIDE (test code = 26 MEQ/L 2205) CALCIUM (test code = 2209) 9.4 MG/DL PROTEIN, TOTAL (test code = 7.2 G/DL 2228) ALBUMIN (test code = 2201) 4.2 G/DL CALC GLOBULIN (test code = 3.0 G/DL 2240) CALC A/G RATIO (test code = 1.4 RATIO 2234) BILIRUBIN, TOTAL (test code = 0.5 MG/DL 2206) ALKALINE PHOSPHATASE (test 153 U/L code = 2204) AST (test code = 2218) 19 U/L ALT (test code = 2219) 20 U/L LIPID [id number] 00:00:00 Test Item Value Reference Range Interpretation Comments CHOLESTEROL (test code = 2210) 175 MG/DL TRIGLYCERIDES (test code = 2232) 107 MG/DL HDL CHOLESTEROL (test code = 2220) 44 MG/DL CALC LDL CHOL (test code = 2237) 110 MG/DL RISK RATIO LDL/HDL (test code = 2.49 RATIO 2238) LIPID [id number] 00:00:00 Test Item Value Reference Range Interpretation Comments CHOLESTEROL (test code = 2210) 175 MG/DL TRIGLYCERIDES (test code = 2232) 107 MG/DL HDL CHOLESTEROL (test code = 2220) 44 MG/DL CALC LDL CHOL (test code = 2237) 110 MG/DL RISK RATIO LDL/HDL (test code = 2.49 RATIO 2238) THYROID II PROFILE (T3U, T4, T7, TSH)2016-10-26 00:00:00 Test Item Value Reference Range Interpretation Comments T3 UPTAKE (test code = 2817) 28.7 % T4 (THYROXINE) (test code = 2819) 8.9 UG/DL CALCULATED T7 (FTI) (test code = 2.55 2820) TSH (test code = 2821) 1.0 UIU/ML THYROID II PROFILE (T3U, T4, T7, TSH)2016-10-26 00:00:00 Test Item Value Reference Range Interpretation Comments T3 UPTAKE (test code = 2817) 28.7 % T4 (THYROXINE) (test code = 2819) 8.9 UG/DL CALCULATED T7 (FTI) (test code = 2.55 2820) TSH (test code = 2821) 1.0 UIU/ML HEMOGLOBIN [id number] 00:00:00 Test Item Value Reference Range Interpretation Comments HEMOGLOBIN A1c (test code = 07446) 5.6 % HEMOGLOBIN [id number] 00:00:00 Test Item Value Reference Range Interpretation Comments HEMOGLOBIN A1c (test code = 61690) 5.6 % HEMOGLOBIN [id number] 00:00:00 Test Item Value Reference Range Interpretation Comments HEMOGLOBIN A1c (test code = 83291) 5.6 % CBC W/AUTO [id number] 00:00:00 Test Item Value Reference Range Interpretation Comments WBC (test code = 1001) 3.4 K/UL RBC (test code = 1002) 4.54 M/UL HEMOGLOBIN (test code = 1003) 13.7 G/DL HEMATOCRIT (test code = 1004) 41.0 % MCV (test code = 1005) 90.3 fL MCH (test code = 1006) 30.2 PG MCHC (test code = 1007) 33.4 G/DL RDW (test code = 1038) 12.4 % NEUTROPHILS (test code = 1008) 63.1 % LYMPHOCYTES (test code = 1010) 24.8 % MONOCYTES (test code = 1011) 10.9 % EOSINOPHILS (test code = 1012) 0.3 % BASOPHILS (test code = 1013) 0.9 % PLATELET COUNT (test code = 1015) 164 K/UL CBC W/AUTO [id number] 00:00:00 Test Item Value Reference Range Interpretation Comments WBC (test code = 1001) 3.4 K/UL RBC (test code = 1002) 4.54 M/UL HEMOGLOBIN (test code = 1003) 13.7 G/DL HEMATOCRIT (test code = 1004) 41.0 % MCV (test code = 1005) 90.3 fL MCH (test code = 1006) 30.2 PG MCHC (test code = 1007) 33.4 G/DL RDW (test code = 1038) 12.4 % NEUTROPHILS (test code = 1008) 63.1 % LYMPHOCYTES (test code = 1010) 24.8 % MONOCYTES (test code = 1011) 10.9 % EOSINOPHILS (test code = 1012) 0.3 % BASOPHILS (test code = 1013) 0.9 % PLATELET COUNT (test code = 1015) 164 K/UL CBC W/AUTO [id number] 00:00:00 Test Item Value Reference Range Interpretation Comments WBC (test code = 1001) 3.4 K/UL RBC (test code = 1002) 4.54 M/UL HEMOGLOBIN (test code = 1003) 13.7 G/DL HEMATOCRIT (test code = 1004) 41.0 % MCV (test code = 1005) 90.3 fL MCH (test code = 1006) 30.2 PG MCHC (test code = 1007) 33.4 G/DL RDW (test code = 1038) 12.4 % NEUTROPHILS (test code = 1008) 63.1 % LYMPHOCYTES (test code = 1010) 24.8 % MONOCYTES (test code = 1011) 10.9 % EOSINOPHILS (test code = 1012) 0.3 % BASOPHILS (test code = 1013) 0.9 % PLATELET COUNT (test code = 1015) 164 K/UL COMPREHENSIVE METABOLIC [id number] 00:00:00 Test Item Value Reference Range Interpretation Comments GLUCOSE (test code = 2217) 95 MG/DL BUN (test code = 2208) 19 MG/DL CREATININE (test code = 2214) 0.62 MG/DL eGFR AMER. (test code 121 ML/MIN/1.73 = 51566) eGFR NON- AMER. (test 104 ML/MIN/1.73 code = 24316) CALC BUN/CREAT (test code = 31 RATIO 2235) SODIUM (test code = 2231) 141 MEQ/L POTASSIUM (test code = 2228) 4.6 MEQ/L CHLORIDE (test code = 2215) 102 MEQ/L CARBON DIOXIDE (test code = 26 MEQ/L 2205) CALCIUM (test code = 2209) 9.4 MG/DL PROTEIN, TOTAL (test code = 7.2 G/DL 2228) ALBUMIN (test code = 2201) 4.2 G/DL CALC GLOBULIN (test code = 3.0 G/DL 2239) CALC A/G RATIO (test code = 1.4 RATIO 2234) BILIRUBIN, TOTAL (test code = 0.5 MG/DL 2206) ALKALINE PHOSPHATASE (test 153 U/L code = 2204) AST (test code = 2218) 19 U/L ALT (test code = 2219) 20 U/L COMPREHENSIVE METABOLIC [id number] 00:00:00 Test Item Value Reference Range Interpretation Comments GLUCOSE (test code = 2217) 95 MG/DL BUN (test code = 2208) 19 MG/DL CREATININE (test code = 2214) 0.62 MG/DL eGFR AMER. (test code 121 ML/MIN/1.73 = 59351) eGFR NON- AMER. (test 104 ML/MIN/1.73 code = 68568) CALC BUN/CREAT (test code = 31 RATIO 2235) SODIUM (test code = 2231) 141 MEQ/L POTASSIUM (test code = 2228) 4.6 MEQ/L CHLORIDE (test code = 2215) 102 MEQ/L CARBON DIOXIDE (test code = 26 MEQ/L 220) CALCIUM (test code = 2209) 9.4 MG/DL PROTEIN, TOTAL (test code = 7.2 G/DL 2228) ALBUMIN (test code = 2201) 4.2 G/DL CALC GLOBULIN (test code = 3.0 G/DL 0) CALC A/G RATIO (test code = 1.4 RATIO 2234) BILIRUBIN, TOTAL (test code = 0.5 MG/DL 2206) ALKALINE PHOSPHATASE (test 153 U/L code = 2204) AST (test code = 2218) 19 U/L ALT (test code = 2219) 20 U/L LIPID [id number] 00:00:00 Test Item Value Reference Range Interpretation Comments CHOLESTEROL (test code = 2210) 175 MG/DL TRIGLYCERIDES (test code = 2232) 107 MG/DL HDL CHOLESTEROL (test code = 2220) 44 MG/DL CALC LDL CHOL (test code = 2237) 110 MG/DL RISK RATIO LDL/HDL (test code = 2.49 RATIO 2238) LIPID [id number] 00:00:00 Test Item Value Reference Range Interpretation Comments CHOLESTEROL (test code = 2210) 175 MG/DL TRIGLYCERIDES (test code = 2232) 107 MG/DL HDL CHOLESTEROL (test code = 2220) 44 MG/DL CALC LDL CHOL (test code = 2237) 110 MG/DL RISK RATIO LDL/HDL (test code = 2.49 RATIO 2238) THYROID II PROFILE (T3U, T4, T7, TSH)2016-10-26 00:00:00 Test Item Value Reference Range Interpretation Comments T3 UPTAKE (test code = 2817) 28.7 % T4 (THYROXINE) (test code = 2819) 8.9 UG/DL CALCULATED T7 (FTI) (test code = 2.55 2820) TSH (test code = 2821) 1.0 UIU/ML THYROID II PROFILE (T3U, T4, T7, TSH)2016-10-26 00:00:00 Test Item Value Reference Range Interpretation Comments T3 UPTAKE (test code = 2817) 28.7 % T4 (THYROXINE) (test code = 2819) 8.9 UG/DL CALCULATED T7 (FTI) (test code = 2.55 2820) TSH (test code = 2821) 1.0 UIU/ML HEMOGLOBIN [id number] 00:00:00 Test Item Value Reference Range Interpretation Comments HEMOGLOBIN A1c (test code = 13818) 5.6 % HEMOGLOBIN [id number] 00:00:00 Test Item Value Reference Range Interpretation Comments HEMOGLOBIN A1c (test code = 31527) 5.6 % HEMOGLOBIN [id number] 00:00:00 Test Item Value Reference Range Interpretation Comments HEMOGLOBIN A1c (test code = 57397) 5.6 % CBC W/AUTO [id number] 00:00:00 Test Item Value Reference Range Interpretation Comments WBC (test code = 1001) 3.4 K/UL RBC (test code = 1002) 4.54 M/UL HEMOGLOBIN (test code = 1003) 13.7 G/DL HEMATOCRIT (test code = 1004) 41.0 % MCV (test code = 1005) 90.3 fL MCH (test code = 1006) 30.2 PG MCHC (test code = 1007) 33.4 G/DL RDW (test code = 1038) 12.4 % NEUTROPHILS (test code = 1008) 63.1 % LYMPHOCYTES (test code = 1010) 24.8 % MONOCYTES (test code = 1011) 10.9 % EOSINOPHILS (test code = 1012) 0.3 % BASOPHILS (test code = 1013) 0.9 % PLATELET COUNT (test code = 1015) 164 K/UL CBC W/AUTO [id number] 00:00:00 Test Item Value Reference Range Interpretation Comments WBC (test code = 1001) 3.4 K/UL RBC (test code = 1002) 4.54 M/UL HEMOGLOBIN (test code = 1003) 13.7 G/DL HEMATOCRIT (test code = 1004) 41.0 % MCV (test code = 1005) 90.3 fL MCH (test code = 1006) 30.2 PG MCHC (test code = 1007) 33.4 G/DL RDW (test code = 1038) 12.4 % NEUTROPHILS (test code = 1008) 63.1 % LYMPHOCYTES (test code = 1010) 24.8 % MONOCYTES (test code = 1011) 10.9 % EOSINOPHILS (test code = 1012) 0.3 % BASOPHILS (test code = 1013) 0.9 % PLATELET COUNT (test code = 1015) 164 K/UL CBC W/AUTO [id number] 00:00:00 Test Item Value Reference Range Interpretation Comments WBC (test code = 1001) 3.4 K/UL RBC (test code = 1002) 4.54 M/UL HEMOGLOBIN (test code = 1003) 13.7 G/DL HEMATOCRIT (test code = 1004) 41.0 % MCV (test code = 1005) 90.3 fL MCH (test code = 1006) 30.2 PG MCHC (test code = 1007) 33.4 G/DL RDW (test code = 1038) 12.4 % NEUTROPHILS (test code = 1008) 63.1 % LYMPHOCYTES (test code = 1010) 24.8 % MONOCYTES (test code = 1011) 10.9 % EOSINOPHILS (test code = 1012) 0.3 % BASOPHILS (test code = 1013) 0.9 % PLATELET COUNT (test code = 1015) 164 K/UL COMPREHENSIVE METABOLIC [id number] 00:00:00 Test Item Value Reference Range Interpretation Comments GLUCOSE (test code = 2217) 95 MG/DL BUN (test code = 2208) 19 MG/DL CREATININE (test code = 2214) 0.62 MG/DL eGFR AMER. (test code 121 ML/MIN/1.73 = 19303) eGFR NON- AMER. (test 104 ML/MIN/1.73 code = 04077) CALC BUN/CREAT (test code = 31 RATIO 2235) SODIUM (test code = 2231) 141 MEQ/L POTASSIUM (test code = 2228) 4.6 MEQ/L CHLORIDE (test code = 2215) 102 MEQ/L CARBON DIOXIDE (test code = 26 MEQ/L 6) CALCIUM (test code = 2209) 9.4 MG/DL PROTEIN, TOTAL (test code = 7.2 G/DL 222) ALBUMIN (test code = 2201) 4.2 G/DL CALC GLOBULIN (test code = 3.0 G/DL 2240) CALC A/G RATIO (test code = 1.4 RATIO 2234) BILIRUBIN, TOTAL (test code = 0.5 MG/DL 2206) ALKALINE PHOSPHATASE (test 153 U/L code = 2204) AST (test code = 2218) 19 U/L ALT (test code = 2219) 20 U/L COMPREHENSIVE METABOLIC [id number] 00:00:00 Test Item Value Reference Range Interpretation Comments GLUCOSE (test code = 2217) 95 MG/DL BUN (test code = 2208) 19 MG/DL CREATININE (test code = 2214) 0.62 MG/DL eGFR AMER. (test code 121 ML/MIN/1.73 = 16708) eGFR NON- AMER. (test 104 ML/MIN/1.73 code = 12290) CALC BUN/CREAT (test code = 31 RATIO 2235) SODIUM (test code = 2231) 141 MEQ/L POTASSIUM (test code = 2228) 4.6 MEQ/L CHLORIDE (test code = 2215) 102 MEQ/L CARBON DIOXIDE (test code = 26 MEQ/L 2205) CALCIUM (test code = 2209) 9.4 MG/DL PROTEIN, TOTAL (test code = 7.2 G/DL 2228) ALBUMIN (test code = 2201) 4.2 G/DL CALC GLOBULIN (test code = 3.0 G/DL 224) CALC A/G RATIO (test code = 1.4 RATIO 2234) BILIRUBIN, TOTAL (test code = 0.5 MG/DL 2206) ALKALINE PHOSPHATASE (test 153 U/L code = 2204) AST (test code = 2218) 19 U/L ALT (test code = 2219) 20 U/L LIPID [id number] 00:00:00 Test Item Value Reference Range Interpretation Comments CHOLESTEROL (test code = 2210) 175 MG/DL TRIGLYCERIDES (test code = 2232) 107 MG/DL HDL CHOLESTEROL (test code = 2220) 44 MG/DL CALC LDL CHOL (test code = 2237) 110 MG/DL RISK RATIO LDL/HDL (test code = 2.49 RATIO 2238) LIPID [id number] 00:00:00 Test Item Value Reference Range Interpretation Comments CHOLESTEROL (test code = 2210) 175 MG/DL TRIGLYCERIDES (test code = 2232) 107 MG/DL HDL CHOLESTEROL (test code = 2220) 44 MG/DL CALC LDL CHOL (test code = 2237) 110 MG/DL RISK RATIO LDL/HDL (test code = 2.49 RATIO 2238) THYROID II PROFILE (T3U, T4, T7, TSH)2016-10-26 00:00:00 Test Item Value Reference Range Interpretation Comments T3 UPTAKE (test code = 2817) 28.7 % T4 (THYROXINE) (test code = 2819) 8.9 UG/DL CALCULATED T7 (FTI) (test code = 2.55 3550) TSH (test code = 2821) 1.0 UIU/ML THYROID II PROFILE (T3U, T4, T7, TSH)2016-10-26 00:00:00 Test Item Value Reference Range Interpretation Comments T3 UPTAKE (test code = 2817) 28.7 % T4 (THYROXINE) (test code = 2819) 8.9 UG/DL CALCULATED T7 (FTI) (test code = 2.55 2820) TSH (test code = 2821) 1.0 UIU/ML HEMOGLOBIN [id number] 00:00:00 Test Item Value Reference Range Interpretation Comments HEMOGLOBIN A1c (test code = 69724) 5.6 % HEMOGLOBIN [id number] 00:00:00 Test Item Value Reference Range Interpretation Comments HEMOGLOBIN A1c (test code = 07314) 5.6 % HEMOGLOBIN [id number] 00:00:00 Test Item Value Reference Range Interpretation Comments HEMOGLOBIN A1c (test code = 45230) 5.6 % CBC W/AUTO [id number] 00:00:00 Test Item Value Reference Range Interpretation Comments WBC (test code = 1001) 3.4 K/UL RBC (test code = 1002) 4.54 M/UL HEMOGLOBIN (test code = 1003) 13.7 G/DL HEMATOCRIT (test code = 1004) 41.0 % MCV (test code = 1005) 90.3 fL MCH (test code = 1006) 30.2 PG MCHC (test code = 1007) 33.4 G/DL RDW (test code = 1038) 12.4 % NEUTROPHILS (test code = 1008) 63.1 % LYMPHOCYTES (test code = 1010) 24.8 % MONOCYTES (test code = 1011) 10.9 % EOSINOPHILS (test code = 1012) 0.3 % BASOPHILS (test code = 1013) 0.9 % PLATELET COUNT (test code = 1015) 164 K/UL CBC W/AUTO [id number] 00:00:00 Test Item Value Reference Range Interpretation Comments WBC (test code = 1001) 3.4 K/UL RBC (test code = 1002) 4.54 M/UL HEMOGLOBIN (test code = 1003) 13.7 G/DL HEMATOCRIT (test code = 1004) 41.0 % MCV (test code = 1005) 90.3 fL MCH (test code = 1006) 30.2 PG MCHC (test code = 1007) 33.4 G/DL RDW (test code = 1038) 12.4 % NEUTROPHILS (test code = 1008) 63.1 % LYMPHOCYTES (test code = 1010) 24.8 % MONOCYTES (test code = 1011) 10.9 % EOSINOPHILS (test code = 1012) 0.3 % BASOPHILS (test code = 1013) 0.9 % PLATELET COUNT (test code = 1015) 164 K/UL HEMOGLOBIN [id number] 00:00:00 Test Item Value Reference Range Interpretation Comments HEMOGLOBIN A1c (test code = 56475) 5.6 % CBC W/AUTO [id number] 00:00:00 Test Item Value Reference Range Interpretation Comments WBC (test code = 1001) 3.4 K/UL RBC (test code = 1002) 4.54 M/UL HEMOGLOBIN (test code = 1003) 13.7 G/DL HEMATOCRIT (test code = 1004) 41.0 % MCV (test code = 1005) 90.3 fL MCH (test code = 1006) 30.2 PG MCHC (test code = 1007) 33.4 G/DL RDW (test code = 1038) 12.4 % NEUTROPHILS (test code = 1008) 63.1 % LYMPHOCYTES (test code = 1010) 24.8 % MONOCYTES (test code = 1011) 10.9 % EOSINOPHILS (test code = 1012) 0.3 % BASOPHILS (test code = 1013) 0.9 % PLATELET COUNT (test code = 1015) 164 K/UL COMPREHENSIVE METABOLIC [id number] 00:00:00 Test Item Value Reference Range Interpretation Comments GLUCOSE (test code = 2217) 95 MG/DL BUN (test code = 2208) 19 MG/DL CREATININE (test code = 2214) 0.62 MG/DL eGFR AMER. (test code 121 ML/MIN/1.73 = 92186) eGFR NON- AMER. (test 104 ML/MIN/1.73 code = 98604) CALC BUN/CREAT (test code = 31 RATIO 2235) SODIUM (test code = 2231) 141 MEQ/L POTASSIUM (test code = 2228) 4.6 MEQ/L CHLORIDE (test code = 2215) 102 MEQ/L CARBON DIOXIDE (test code = 26 MEQ/L 220) CALCIUM (test code = 2209) 9.4 MG/DL PROTEIN, TOTAL (test code = 7.2 G/DL 2229) ALBUMIN (test code = 2201) 4.2 G/DL CALC GLOBULIN (test code = 3.0 G/DL 2240) CALC A/G RATIO (test code = 1.4 RATIO 2234) BILIRUBIN, TOTAL (test code = 0.5 MG/DL 2207) ALKALINE PHOSPHATASE (test 153 U/L code = 2204) AST (test code = 2218) 19 U/L ALT (test code = 2219) 20 U/L COMPREHENSIVE METABOLIC [id number] 00:00:00 Test Item Value Reference Range Interpretation Comments GLUCOSE (test code = 2217) 95 MG/DL BUN (test code = 2208) 19 MG/DL CREATININE (test code = 2214) 0.62 MG/DL eGFR AMER. (test code 121 ML/MIN/1.73 = 61142) eGFR NON- AMER. (test 104 ML/MIN/1.73 code = 81418) CALC BUN/CREAT (test code = 31 RATIO 2235) SODIUM (test code = 2231) 141 MEQ/L POTASSIUM (test code = 2228) 4.6 MEQ/L CHLORIDE (test code = 2215) 102 MEQ/L CARBON DIOXIDE (test code = 26 MEQ/L 2206) CALCIUM (test code = 2209) 9.4 MG/DL PROTEIN, TOTAL (test code = 7.2 G/DL 9) ALBUMIN (test code = 2201) 4.2 G/DL CALC GLOBULIN (test code = 3.0 G/DL 2240) CALC A/G RATIO (test code = 1.4 RATIO 2234) BILIRUBIN, TOTAL (test code = 0.5 MG/DL 2207) ALKALINE PHOSPHATASE (test 153 U/L code = 2204) AST (test code = 2218) 19 U/L ALT (test code = 2219) 20 U/L LIPID [id number] 00:00:00 Test Item Value Reference Range Interpretation Comments CHOLESTEROL (test code = 2210) 175 MG/DL TRIGLYCERIDES (test code = 2232) 107 MG/DL HDL CHOLESTEROL (test code = 2220) 44 MG/DL CALC LDL CHOL (test code = 2237) 110 MG/DL RISK RATIO LDL/HDL (test code = 2.49 RATIO 2238) LIPID [id number] 00:00:00 Test Item Value Reference Range Interpretation Comments CHOLESTEROL (test code = 2210) 175 MG/DL TRIGLYCERIDES (test code = 2232) 107 MG/DL HDL CHOLESTEROL (test code = 2220) 44 MG/DL CALC LDL CHOL (test code = 2237) 110 MG/DL RISK RATIO LDL/HDL (test code = 2.49 RATIO 2238) THYROID II PROFILE (T3U, T4, T7, TSH)2016-10-26 00:00:00 Test Item Value Reference Range Interpretation Comments T3 UPTAKE (test code = 2817) 28.7 % T4 (THYROXINE) (test code = 2819) 8.9 UG/DL CALCULATED T7 (FTI) (test code = 2.55 2820) TSH (test code = 2821) 1.0 UIU/ML THYROID II PROFILE (T3U, T4, T7, TSH)2016-10-26 00:00:00 Test Item Value Reference Range Interpretation Comments T3 UPTAKE (test code = 2817) 28.7 % T4 (THYROXINE) (test code = 2819) 8.9 UG/DL CALCULATED T7 (FTI) (test code = 2.55 2820) TSH (test code = 2821) 1.0 UIU/ML HEMOGLOBIN [id number] 00:00:00 Test Item Value Reference Range Interpretation Comments HEMOGLOBIN A1c (test code = 16087) 5.6 % LIPID [id number] 00:00:00 Test Item Value Reference Range Interpretation Comments CHOLESTEROL (test code = 2210) 158 MG/DL TRIGLYCERIDES (test code = 2232) 111 MG/DL HDL CHOLESTEROL (test code = 2220) 40 MG/DL CALCULATED LDL CHOL (test code = 96 MG/DL 2237) RISK RATIO LDL/HDL (test code = 2.40 RATIO 2238) CBC W/AUTO [id number] 00:00:00 Test Item Value Reference Range Interpretation Comments WBC (test code = 1001) 2.3 K/UL RBC (test code = 1002) 4.64 M/UL HEMOGLOBIN (test code = 1003) 13.9 G/DL HEMATOCRIT (test code = 1004) 42.2 % MCV (test code = 1005) 90.9 fL MCH (test code = 1006) 30.0 PG MCHC (test code = 1007) 32.9 G/DL RDW (test code = 1038) 13.6 % NEUTROPHILS (test code = 1008) 68 % LYMPHOCYTES (test code = 1010) 17 % MONOCYTES (test code = 1011) 14 % EOSINOPHILS (test code = 1012) % BASOPHILS (test code = 1013) % PLATELET COUNT (test code = 1015) 135 K/UL CBC W/AUTO [id number] 00:00:00 Test Item Value Reference Range Interpretation Comments WBC (test code = 1001) 2.3 K/UL RBC (test code = 1002) 4.64 M/UL HEMOGLOBIN (test code = 1003) 13.9 G/DL HEMATOCRIT (test code = 1004) 42.2 % MCV (test code = 1005) 90.9 fL MCH (test code = 1006) 30.0 PG MCHC (test code = 1007) 32.9 G/DL RDW (test code = 1038) 13.6 % NEUTROPHILS (test code = 1008) 68 % LYMPHOCYTES (test code = 1010) 17 % MONOCYTES (test code = 1011) 14 % EOSINOPHILS (test code = 1012) % BASOPHILS (test code = 1013) % PLATELET COUNT (test code = 1015) 135 K/UL HEMOGLOBIN [id number] 00:00:00 Test Item Value Reference Range Interpretation Comments HEMOGLOBIN A1c (test code = 94312) 5.7 % HEMOGLOBIN [id number] 00:00:00 Test Item Value Reference Range Interpretation Comments HEMOGLOBIN A1c (test code = 85228) 5.7 % [id number] 00:00:00 Test Item Value Reference Range Interpretation Comments TSH (test code = 2821) 0.2 UIU/ML [id number] 00:00:00 Test Item Value Reference Range Interpretation Comments TSH (test code = 2821) 0.2 UIU/ML COMPREHENSIVE METABOLIC [id number] 00:00:00 Test Item Value Reference Range Interpretation Comments GLUCOSE (test code = 2217) 103 MG/DL BUN (test code = 2208) 16 MG/DL CREATININE (test code = 2214) 0.77 MG/DL eGFR AMER. (test code 104 ML/MIN/1.73 = 86295) eGFR NON- AMER. (test 90 ML/MIN/1.73 code = 05217) CALCULATED BUN/CREAT (test 21 RATIO code = 2235) SODIUM (test code = 2231) 137 MEQ/L POTASSIUM (test code = 2228) 3.8 MEQ/L CHLORIDE (test code = 2215) 101 MEQ/L CARBON DIOXIDE (test code = 25 MEQ/L 2205) CALCIUM (test code = 2209) 9.5 MG/DL PROTEIN, TOTAL (test code = 7.3 G/DL 2228) ALBUMIN (test code = 2201) 4.0 G/DL CALCULATED GLOBULIN (test 3.3 G/DL code = 2240) CALCULATED A/G RATIO (test 1.2 RATIO code = 2234) BILIRUBIN, TOTAL (test code = 0.9 MG/DL 2206) ALKALINE PHOSPHATASE (test 135 U/L code = 2204) SGOT (AST) (test code = 2218) 17 U/L SGPT (ALT) (test code = 2219) 19 U/L COMPREHENSIVE METABOLIC [id number] 00:00:00 Test Item Value Reference Range Interpretation Comments GLUCOSE (test code = 2217) 103 MG/DL BUN (test code = 2208) 16 MG/DL CREATININE (test code = 2214) 0.77 MG/DL eGFR AMER. (test code 104 ML/MIN/1.73 = 24937) eGFR NON- AMER. (test 90 ML/MIN/1.73 code = 02048) CALCULATED BUN/CREAT (test 21 RATIO code = 2235) SODIUM (test code = 2231) 137 MEQ/L POTASSIUM (test code = 2228) 3.8 MEQ/L CHLORIDE (test code = 2215) 101 MEQ/L CARBON DIOXIDE (test code = 25 MEQ/L 2205) CALCIUM (test code = 2209) 9.5 MG/DL PROTEIN, TOTAL (test code = 7.3 G/DL 2228) ALBUMIN (test code = 2201) 4.0 G/DL CALCULATED GLOBULIN (test 3.3 G/DL code = 2240) CALCULATED A/G RATIO (test 1.2 RATIO code = 2234) BILIRUBIN, TOTAL (test code = 0.9 MG/DL 2206) ALKALINE PHOSPHATASE (test 135 U/L code = 2204) SGOT (AST) (test code = 2218) 17 U/L SGPT (ALT) (test code = 2219) 19 U/L LIPID [id number] 00:00:00 Test Item Value Reference Range Interpretation Comments CHOLESTEROL (test code = 2210) 158 MG/DL TRIGLYCERIDES (test code = 2232) 111 MG/DL HDL CHOLESTEROL (test code = 2220) 40 MG/DL CALCULATED LDL CHOL (test code = 96 MG/DL 2237) RISK RATIO LDL/HDL (test code = 2.40 RATIO 2238) LIPID [id number] 00:00:00 Test Item Value Reference Range Interpretation Comments CHOLESTEROL (test code = 2210) 158 MG/DL TRIGLYCERIDES (test code = 2232) 111 MG/DL HDL CHOLESTEROL (test code = 2220) 40 MG/DL CALCULATED LDL CHOL (test code = 96 MG/DL 2237) RISK RATIO LDL/HDL (test code = 2.40 RATIO 2238) CBC W/AUTO [id number] 00:00:00 Test Item Value Reference Range Interpretation Comments WBC (test code = 1001) 2.3 K/UL RBC (test code = 1002) 4.64 M/UL HEMOGLOBIN (test code = 1003) 13.9 G/DL HEMATOCRIT (test code = 1004) 42.2 % MCV (test code = 1005) 90.9 fL MCH (test code = 1006) 30.0 PG MCHC (test code = 1007) 32.9 G/DL RDW (test code = 1038) 13.6 % NEUTROPHILS (test code = 1008) 68 % LYMPHOCYTES (test code = 1010) 17 % MONOCYTES (test code = 1011) 14 % EOSINOPHILS (test code = 1012) % BASOPHILS (test code = 1013) % PLATELET COUNT (test code = 1015) 135 K/UL CBC W/AUTO [id number] 00:00:00 Test Item Value Reference Range Interpretation Comments WBC (test code = 1001) 2.3 K/UL RBC (test code = 1002) 4.64 M/UL HEMOGLOBIN (test code = 1003) 13.9 G/DL HEMATOCRIT (test code = 1004) 42.2 % MCV (test code = 1005) 90.9 fL MCH (test code = 1006) 30.0 PG MCHC (test code = 1007) 32.9 G/DL RDW (test code = 1038) 13.6 % NEUTROPHILS (test code = 1008) 68 % LYMPHOCYTES (test code = 1010) 17 % MONOCYTES (test code = 1011) 14 % EOSINOPHILS (test code = 1012) % BASOPHILS (test code = 1013) % PLATELET COUNT (test code = 1015) 135 K/UL CBC W/AUTO [id number] 00:00:00 Test Item Value Reference Range Interpretation Comments WBC (test code = 1001) 2.3 K/UL RBC (test code = 1002) 4.64 M/UL HEMOGLOBIN (test code = 1003) 13.9 G/DL HEMATOCRIT (test code = 1004) 42.2 % MCV (test code = 1005) 90.9 fL MCH (test code = 1006) 30.0 PG MCHC (test code = 1007) 32.9 G/DL RDW (test code = 1038) 13.6 % NEUTROPHILS (test code = 1008) 68 % LYMPHOCYTES (test code = 1010) 17 % MONOCYTES (test code = 1011) 14 % EOSINOPHILS (test code = 1012) % BASOPHILS (test code = 1013) % PLATELET COUNT (test code = 1015) 135 K/UL HEMOGLOBIN [id number] 00:00:00 Test Item Value Reference Range Interpretation Comments HEMOGLOBIN A1c (test code = 51461) 5.7 % HEMOGLOBIN [id number] 00:00:00 Test Item Value Reference Range Interpretation Comments HEMOGLOBIN A1c (test code = 77373) 5.7 % HEMOGLOBIN [id number] 00:00:00 Test Item Value Reference Range Interpretation Comments HEMOGLOBIN A1c (test code = 65863) 5.7 % [id number] 00:00:00 Test Item Value Reference Range Interpretation Comments TSH (test code = 2821) 0.2 UIU/ML [id number] 00:00:00 Test Item Value Reference Range Interpretation Comments TSH (test code = 2821) 0.2 UIU/ML [id number] 00:00:00 Test Item Value Reference Range Interpretation Comments TSH (test code = 2821) 0.2 UIU/ML COMPREHENSIVE METABOLIC [id number] 00:00:00 Test Item Value Reference Range Interpretation Comments GLUCOSE (test code = 2217) 103 MG/DL BUN (test code = 2208) 16 MG/DL CREATININE (test code = 2214) 0.77 MG/DL eGFR AMER. (test code 104 ML/MIN/1.73 = 07474) eGFR NON- AMER. (test 90 ML/MIN/1.73 code = 08538) CALCULATED BUN/CREAT (test 21 RATIO code = 2235) SODIUM (test code = 2231) 137 MEQ/L POTASSIUM (test code = 2228) 3.8 MEQ/L CHLORIDE (test code = 2215) 101 MEQ/L CARBON DIOXIDE (test code = 25 MEQ/L 2206) CALCIUM (test code = 2209) 9.5 MG/DL PROTEIN, TOTAL (test code = 7.3 G/DL 2228) ALBUMIN (test code = 2201) 4.0 G/DL CALCULATED GLOBULIN (test 3.3 G/DL code = 2240) CALCULATED A/G RATIO (test 1.2 RATIO code = 2234) BILIRUBIN, TOTAL (test code = 0.9 MG/DL 2206) ALKALINE PHOSPHATASE (test 135 U/L code = 2204) SGOT (AST) (test code = 2218) 17 U/L SGPT (ALT) (test code = 2219) 19 U/L COMPREHENSIVE METABOLIC [id number] 00:00:00 Test Item Value Reference Range Interpretation Comments GLUCOSE (test code = 2217) 103 MG/DL BUN (test code = 2208) 16 MG/DL CREATININE (test code = 2214) 0.77 MG/DL eGFR AMER. (test code 104 ML/MIN/1.73 = 80462) eGFR NON- AMER. (test 90 ML/MIN/1.73 code = 76761) CALCULATED BUN/CREAT (test 21 RATIO code = 2235) SODIUM (test code = 2231) 137 MEQ/L POTASSIUM (test code = 2228) 3.8 MEQ/L CHLORIDE (test code = 2215) 101 MEQ/L CARBON DIOXIDE (test code = 25 MEQ/L 220) CALCIUM (test code = 2209) 9.5 MG/DL PROTEIN, TOTAL (test code = 7.3 G/DL 2228) ALBUMIN (test code = 2201) 4.0 G/DL CALCULATED GLOBULIN (test 3.3 G/DL code = 2240) CALCULATED A/G RATIO (test 1.2 RATIO code = 2234) BILIRUBIN, TOTAL (test code = 0.9 MG/DL 2206) ALKALINE PHOSPHATASE (test 135 U/L code = 2204) SGOT (AST) (test code = 2218) 17 U/L SGPT (ALT) (test code = 2219) 19 U/L LIPID [id number] 00:00:00 Test Item Value Reference Range Interpretation Comments CHOLESTEROL (test code = 2210) 158 MG/DL TRIGLYCERIDES (test code = 2232) 111 MG/DL HDL CHOLESTEROL (test code = 2220) 40 MG/DL CALCULATED LDL CHOL (test code = 96 MG/DL 2237) RISK RATIO LDL/HDL (test code = 2.40 RATIO 2238) LIPID [id number] 00:00:00 Test Item Value Reference Range Interpretation Comments CHOLESTEROL (test code = 2210) 158 MG/DL TRIGLYCERIDES (test code = 2232) 111 MG/DL HDL CHOLESTEROL (test code = 2220) 40 MG/DL CALCULATED LDL CHOL (test code = 96 MG/DL 2237) RISK RATIO LDL/HDL (test code = 2.40 RATIO 2238) CBC W/AUTO [id number] 00:00:00 Test Item Value Reference Range Interpretation Comments WBC (test code = 1001) 2.3 K/UL RBC (test code = 1002) 4.64 M/UL HEMOGLOBIN (test code = 1003) 13.9 G/DL HEMATOCRIT (test code = 1004) 42.2 % MCV (test code = 1005) 90.9 fL MCH (test code = 1006) 30.0 PG MCHC (test code = 1007) 32.9 G/DL RDW (test code = 1038) 13.6 % NEUTROPHILS (test code = 1008) 68 % LYMPHOCYTES (test code = 1010) 17 % MONOCYTES (test code = 1011) 14 % EOSINOPHILS (test code = 1012) % BASOPHILS (test code = 1013) % PLATELET COUNT (test code = 1015) 135 K/UL CBC W/AUTO [id number] 00:00:00 Test Item Value Reference Range Interpretation Comments WBC (test code = 1001) 2.3 K/UL RBC (test code = 1002) 4.64 M/UL HEMOGLOBIN (test code = 1003) 13.9 G/DL HEMATOCRIT (test code = 1004) 42.2 % MCV (test code = 1005) 90.9 fL MCH (test code = 1006) 30.0 PG MCHC (test code = 1007) 32.9 G/DL RDW (test code = 1038) 13.6 % NEUTROPHILS (test code = 1008) 68 % LYMPHOCYTES (test code = 1010) 17 % MONOCYTES (test code = 1011) 14 % EOSINOPHILS (test code = 1012) % BASOPHILS (test code = 1013) % PLATELET COUNT (test code = 1015) 135 K/UL CBC W/AUTO [id number] 00:00:00 Test Item Value Reference Range Interpretation Comments WBC (test code = 1001) 2.3 K/UL RBC (test code = 1002) 4.64 M/UL HEMOGLOBIN (test code = 1003) 13.9 G/DL HEMATOCRIT (test code = 1004) 42.2 % MCV (test code = 1005) 90.9 fL MCH (test code = 1006) 30.0 PG MCHC (test code = 1007) 32.9 G/DL RDW (test code = 1038) 13.6 % NEUTROPHILS (test code = 1008) 68 % LYMPHOCYTES (test code = 1010) 17 % MONOCYTES (test code = 1011) 14 % EOSINOPHILS (test code = 1012) % BASOPHILS (test code = 1013) % PLATELET COUNT (test code = 1015) 135 K/UL HEMOGLOBIN [id number] 00:00:00 Test Item Value Reference Range Interpretation Comments HEMOGLOBIN A1c (test code = 89966) 5.7 % HEMOGLOBIN [id number] 00:00:00 Test Item Value Reference Range Interpretation Comments HEMOGLOBIN A1c (test code = 93146) 5.7 % HEMOGLOBIN [id number] 00:00:00 Test Item Value Reference Range Interpretation Comments HEMOGLOBIN A1c (test code = 63199) 5.7 % [id number] 00:00:00 Test Item Value Reference Range Interpretation Comments TSH (test code = 2821) 0.2 UIU/ML [id number] 00:00:00 Test Item Value Reference Range Interpretation Comments TSH (test code = 2821) 0.2 UIU/ML [id number] 00:00:00 Test Item Value Reference Range Interpretation Comments TSH (test code = 2821) 0.2 UIU/ML COMPREHENSIVE METABOLIC [id number] 00:00:00 Test Item Value Reference Range Interpretation Comments GLUCOSE (test code = 2217) 103 MG/DL BUN (test code = 2208) 16 MG/DL CREATININE (test code = 2214) 0.77 MG/DL eGFR AMER. (test code 104 ML/MIN/1.73 = 56582) eGFR NON- AMER. (test 90 ML/MIN/1.73 code = 47730) CALCULATED BUN/CREAT (test 21 RATIO code = 2235) SODIUM (test code = 2231) 137 MEQ/L POTASSIUM (test code = 2228) 3.8 MEQ/L CHLORIDE (test code = 2215) 101 MEQ/L CARBON DIOXIDE (test code = 25 MEQ/L 220) CALCIUM (test code = 2209) 9.5 MG/DL PROTEIN, TOTAL (test code = 7.3 G/DL 2228) ALBUMIN (test code = 2201) 4.0 G/DL CALCULATED GLOBULIN (test 3.3 G/DL code = 2240) CALCULATED A/G RATIO (test 1.2 RATIO code = 2234) BILIRUBIN, TOTAL (test code = 0.9 MG/DL 2206) ALKALINE PHOSPHATASE (test 135 U/L code = 2204) SGOT (AST) (test code = 2218) 17 U/L SGPT (ALT) (test code = 2219) 19 U/L COMPREHENSIVE METABOLIC [id number] 00:00:00 Test Item Value Reference Range Interpretation Comments GLUCOSE (test code = 2217) 103 MG/DL BUN (test code = 2208) 16 MG/DL CREATININE (test code = 2214) 0.77 MG/DL eGFR AMER. (test code 104 ML/MIN/1.73 = 66838) eGFR NON- AMER. (test 90 ML/MIN/1.73 code = 53867) CALCULATED BUN/CREAT (test 21 RATIO code = 2235) SODIUM (test code = 2231) 137 MEQ/L POTASSIUM (test code = 2228) 3.8 MEQ/L CHLORIDE (test code = 2215) 101 MEQ/L CARBON DIOXIDE (test code = 25 MEQ/L 220) CALCIUM (test code = 2209) 9.5 MG/DL PROTEIN, TOTAL (test code = 7.3 G/DL 2228) ALBUMIN (test code = 2201) 4.0 G/DL CALCULATED GLOBULIN (test 3.3 G/DL code = 2240) CALCULATED A/G RATIO (test 1.2 RATIO code = 2234) BILIRUBIN, TOTAL (test code = 0.9 MG/DL 7) ALKALINE PHOSPHATASE (test 135 U/L code = 2204) SGOT (AST) (test code = 2218) 17 U/L SGPT (ALT) (test code = 2219) 19 U/L LIPID [id number] 00:00:00 Test Item Value Reference Range Interpretation Comments CHOLESTEROL (test code = 2210) 158 MG/DL TRIGLYCERIDES (test code = 2232) 111 MG/DL HDL CHOLESTEROL (test code = 2220) 40 MG/DL CALCULATED LDL CHOL (test code = 96 MG/DL 2237) RISK RATIO LDL/HDL (test code = 2.40 RATIO 2238) LIPID [id number] 00:00:00 Test Item Value Reference Range Interpretation Comments CHOLESTEROL (test code = 2210) 158 MG/DL TRIGLYCERIDES (test code = 2232) 111 MG/DL HDL CHOLESTEROL (test code = 2220) 40 MG/DL CALCULATED LDL CHOL (test code = 96 MG/DL 2237) RISK RATIO LDL/HDL (test code = 2.40 RATIO 2238) CBC W/AUTO [id number] 00:00:00 Test Item Value Reference Range Interpretation Comments WBC (test code = 1001) 2.3 K/UL RBC (test code = 1002) 4.64 M/UL HEMOGLOBIN (test code = 1003) 13.9 G/DL HEMATOCRIT (test code = 1004) 42.2 % MCV (test code = 1005) 90.9 fL MCH (test code = 1006) 30.0 PG MCHC (test code = 1007) 32.9 G/DL RDW (test code = 1038) 13.6 % NEUTROPHILS (test code = 1008) 68 % LYMPHOCYTES (test code = 1010) 17 % MONOCYTES (test code = 1011) 14 % EOSINOPHILS (test code = 1012) % BASOPHILS (test code = 1013) % PLATELET COUNT (test code = 1015) 135 K/UL CBC W/AUTO [id number] 00:00:00 Test Item Value Reference Range Interpretation Comments WBC (test code = 1001) 2.3 K/UL RBC (test code = 1002) 4.64 M/UL HEMOGLOBIN (test code = 1003) 13.9 G/DL HEMATOCRIT (test code = 1004) 42.2 % MCV (test code = 1005) 90.9 fL MCH (test code = 1006) 30.0 PG MCHC (test code = 1007) 32.9 G/DL RDW (test code = 1038) 13.6 % NEUTROPHILS (test code = 1008) 68 % LYMPHOCYTES (test code = 1010) 17 % MONOCYTES (test code = 1011) 14 % EOSINOPHILS (test code = 1012) % BASOPHILS (test code = 1013) % PLATELET COUNT (test code = 1015) 135 K/UL CBC W/AUTO [id number] 00:00:00 Test Item Value Reference Range Interpretation Comments WBC (test code = 1001) 2.3 K/UL RBC (test code = 1002) 4.64 M/UL HEMOGLOBIN (test code = 1003) 13.9 G/DL HEMATOCRIT (test code = 1004) 42.2 % MCV (test code = 1005) 90.9 fL MCH (test code = 1006) 30.0 PG MCHC (test code = 1007) 32.9 G/DL RDW (test code = 1038) 13.6 % NEUTROPHILS (test code = 1008) 68 % LYMPHOCYTES (test code = 1010) 17 % MONOCYTES (test code = 1011) 14 % EOSINOPHILS (test code = 1012) % BASOPHILS (test code = 1013) % PLATELET COUNT (test code = 1015) 135 K/UL HEMOGLOBIN [id number] 00:00:00 Test Item Value Reference Range Interpretation Comments HEMOGLOBIN A1c (test code = 38941) 5.7 % HEMOGLOBIN [id number] 00:00:00 Test Item Value Reference Range Interpretation Comments HEMOGLOBIN A1c (test code = 48704) 5.7 % HEMOGLOBIN [id number] 00:00:00 Test Item Value Reference Range Interpretation Comments HEMOGLOBIN A1c (test code = 87248) 5.7 % [id number] 00:00:00 Test Item Value Reference Range Interpretation Comments TSH (test code = 2821) 0.2 UIU/ML [id number] 00:00:00 Test Item Value Reference Range Interpretation Comments TSH (test code = 2821) 0.2 UIU/ML [id number] 00:00:00 Test Item Value Reference Range Interpretation Comments TSH (test code = 2821) 0.2 UIU/ML COMPREHENSIVE METABOLIC [id number] 00:00:00 Test Item Value Reference Range Interpretation Comments GLUCOSE (test code = 2217) 103 MG/DL BUN (test code = 2208) 16 MG/DL CREATININE (test code = 2214) 0.77 MG/DL eGFR AMER. (test code 104 ML/MIN/1.73 = 87952) eGFR NON- AMER. (test 90 ML/MIN/1.73 code = 93492) CALCULATED BUN/CREAT (test 21 RATIO code = 2235) SODIUM (test code = 2231) 137 MEQ/L POTASSIUM (test code = 2228) 3.8 MEQ/L CHLORIDE (test code = 2215) 101 MEQ/L CARBON DIOXIDE (test code = 25 MEQ/L 2205) CALCIUM (test code = 2209) 9.5 MG/DL PROTEIN, TOTAL (test code = 7.3 G/DL 2228) ALBUMIN (test code = 2201) 4.0 G/DL CALCULATED GLOBULIN (test 3.3 G/DL code = 2240) CALCULATED A/G RATIO (test 1.2 RATIO code = 2234) BILIRUBIN, TOTAL (test code = 0.9 MG/DL 2206) ALKALINE PHOSPHATASE (test 135 U/L code = 2204) SGOT (AST) (test code = 2218) 17 U/L SGPT (ALT) (test code = 2219) 19 U/L COMPREHENSIVE METABOLIC [id number] 00:00:00 Test Item Value Reference Range Interpretation Comments GLUCOSE (test code = 2217) 103 MG/DL BUN (test code = 2208) 16 MG/DL CREATININE (test code = 2214) 0.77 MG/DL eGFR AMER. (test code 104 ML/MIN/1.73 = 37028) eGFR NON- AMER. (test 90 ML/MIN/1.73 code = 56581) CALCULATED BUN/CREAT (test 21 RATIO code = 2235) SODIUM (test code = 2231) 137 MEQ/L POTASSIUM (test code = 2228) 3.8 MEQ/L CHLORIDE (test code = 2215) 101 MEQ/L CARBON DIOXIDE (test code = 25 MEQ/L 220) CALCIUM (test code = 2209) 9.5 MG/DL PROTEIN, TOTAL (test code = 7.3 G/DL 2228) ALBUMIN (test code = 2201) 4.0 G/DL CALCULATED GLOBULIN (test 3.3 G/DL code = 2240) CALCULATED A/G RATIO (test 1.2 RATIO code = 2234) BILIRUBIN, TOTAL (test code = 0.9 MG/DL 2206) ALKALINE PHOSPHATASE (test 135 U/L code = 2204) SGOT (AST) (test code = 2218) 17 U/L SGPT (ALT) (test code = 2219) 19 U/L LIPID [id number] 00:00:00 Test Item Value Reference Range Interpretation Comments CHOLESTEROL (test code = 2210) 158 MG/DL TRIGLYCERIDES (test code = 2232) 111 MG/DL HDL CHOLESTEROL (test code = 2220) 40 MG/DL CALCULATED LDL CHOL (test code = 96 MG/DL 2237) RISK RATIO LDL/HDL (test code = 2.40 RATIO 2238) LIPID [id number] 00:00:00 Test Item Value Reference Range Interpretation Comments CHOLESTEROL (test code = 2210) 158 MG/DL TRIGLYCERIDES (test code = 2232) 111 MG/DL HDL CHOLESTEROL (test code = 2220) 40 MG/DL CALCULATED LDL CHOL (test code = 96 MG/DL 2237) RISK RATIO LDL/HDL (test code = 2.40 RATIO 2238) CBC W/AUTO [id number] 00:00:00 Test Item Value Reference Range Interpretation Comments WBC (test code = 1001) 2.3 K/UL RBC (test code = 1002) 4.64 M/UL HEMOGLOBIN (test code = 1003) 13.9 G/DL HEMATOCRIT (test code = 1004) 42.2 % MCV (test code = 1005) 90.9 fL MCH (test code = 1006) 30.0 PG MCHC (test code = 1007) 32.9 G/DL RDW (test code = 1038) 13.6 % NEUTROPHILS (test code = 1008) 68 % LYMPHOCYTES (test code = 1010) 17 % MONOCYTES (test code = 1011) 14 % EOSINOPHILS (test code = 1012) % BASOPHILS (test code = 1013) % PLATELET COUNT (test code = 1015) 135 K/UL CBC W/AUTO [id number] 00:00:00 Test Item Value Reference Range Interpretation Comments WBC (test code = 1001) 2.3 K/UL RBC (test code = 1002) 4.64 M/UL HEMOGLOBIN (test code = 1003) 13.9 G/DL HEMATOCRIT (test code = 1004) 42.2 % MCV (test code = 1005) 90.9 fL MCH (test code = 1006) 30.0 PG MCHC (test code = 1007) 32.9 G/DL RDW (test code = 1038) 13.6 % NEUTROPHILS (test code = 1008) 68 % LYMPHOCYTES (test code = 1010) 17 % MONOCYTES (test code = 1011) 14 % EOSINOPHILS (test code = 1012) % BASOPHILS (test code = 1013) % PLATELET COUNT (test code = 1015) 135 K/UL CBC W/AUTO [id number] 00:00:00 Test Item Value Reference Range Interpretation Comments WBC (test code = 1001) 2.3 K/UL RBC (test code = 1002) 4.64 M/UL HEMOGLOBIN (test code = 1003) 13.9 G/DL HEMATOCRIT (test code = 1004) 42.2 % MCV (test code = 1005) 90.9 fL MCH (test code = 1006) 30.0 PG MCHC (test code = 1007) 32.9 G/DL RDW (test code = 1038) 13.6 % NEUTROPHILS (test code = 1008) 68 % LYMPHOCYTES (test code = 1010) 17 % MONOCYTES (test code = 1011) 14 % EOSINOPHILS (test code = 1012) % BASOPHILS (test code = 1013) % PLATELET COUNT (test code = 1015) 135 K/UL HEMOGLOBIN [id number] 00:00:00 Test Item Value Reference Range Interpretation Comments HEMOGLOBIN A1c (test code = 27114) 5.7 % HEMOGLOBIN [id number] 00:00:00 Test Item Value Reference Range Interpretation Comments HEMOGLOBIN A1c (test code = 00392) 5.7 % HEMOGLOBIN [id number] 00:00:00 Test Item Value Reference Range Interpretation Comments HEMOGLOBIN A1c (test code = 89587) 5.7 % [id number] 00:00:00 Test Item Value Reference Range Interpretation Comments TSH (test code = 2821) 0.2 UIU/ML [id number] 00:00:00 Test Item Value Reference Range Interpretation Comments TSH (test code = 2821) 0.2 UIU/ML [id number] 00:00:00 Test Item Value Reference Range Interpretation Comments TSH (test code = 2821) 0.2 UIU/ML COMPREHENSIVE METABOLIC [id number] 00:00:00 Test Item Value Reference Range Interpretation Comments GLUCOSE (test code = 2217) 103 MG/DL BUN (test code = 2208) 16 MG/DL CREATININE (test code = 2214) 0.77 MG/DL eGFR AMER. (test code 104 ML/MIN/1.73 = 25903) eGFR NON- AMER. (test 90 ML/MIN/1.73 code = 16101) CALCULATED BUN/CREAT (test 21 RATIO code = 2235) SODIUM (test code = 2231) 137 MEQ/L POTASSIUM (test code = 2228) 3.8 MEQ/L CHLORIDE (test code = 2215) 101 MEQ/L CARBON DIOXIDE (test code = 25 MEQ/L 2205) CALCIUM (test code = 2209) 9.5 MG/DL PROTEIN, TOTAL (test code = 7.3 G/DL 2228) ALBUMIN (test code = 2201) 4.0 G/DL CALCULATED GLOBULIN (test 3.3 G/DL code = 2240) CALCULATED A/G RATIO (test 1.2 RATIO code = 2234) BILIRUBIN, TOTAL (test code = 0.9 MG/DL 2206) ALKALINE PHOSPHATASE (test 135 U/L code = 2204) SGOT (AST) (test code = 2218) 17 U/L SGPT (ALT) (test code = 2219) 19 U/L COMPREHENSIVE METABOLIC [id number] 00:00:00 Test Item Value Reference Range Interpretation Comments GLUCOSE (test code = 2217) 103 MG/DL BUN (test code = 2208) 16 MG/DL CREATININE (test code = 2214) 0.77 MG/DL eGFR AMER. (test code 104 ML/MIN/1.73 = 72694) eGFR NON- AMER. (test 90 ML/MIN/1.73 code = 72288) CALCULATED BUN/CREAT (test 21 RATIO code = 2235) SODIUM (test code = 2231) 137 MEQ/L POTASSIUM (test code = 2228) 3.8 MEQ/L CHLORIDE (test code = 2215) 101 MEQ/L CARBON DIOXIDE (test code = 25 MEQ/L 2205) CALCIUM (test code = 2209) 9.5 MG/DL PROTEIN, TOTAL (test code = 7.3 G/DL 2228) ALBUMIN (test code = 2201) 4.0 G/DL CALCULATED GLOBULIN (test 3.3 G/DL code = 2240) CALCULATED A/G RATIO (test 1.2 RATIO code = 2234) BILIRUBIN, TOTAL (test code = 0.9 MG/DL 2206) ALKALINE PHOSPHATASE (test 135 U/L code = 2204) SGOT (AST) (test code = 2218) 17 U/L SGPT (ALT) (test code = 2219) 19 U/L LIPID [id number] 00:00:00 Test Item Value Reference Range Interpretation Comments CHOLESTEROL (test code = 2210) 158 MG/DL TRIGLYCERIDES (test code = 2232) 111 MG/DL HDL CHOLESTEROL (test code = 2220) 40 MG/DL CALCULATED LDL CHOL (test code = 96 MG/DL 2237) RISK RATIO LDL/HDL (test code = 2.40 RATIO 2238) LIPID [id number] 00:00:00 Test Item Value Reference Range Interpretation Comments CHOLESTEROL (test code = 2210) 158 MG/DL TRIGLYCERIDES (test code = 2232) 111 MG/DL HDL CHOLESTEROL (test code = 2220) 40 MG/DL CALCULATED LDL CHOL (test code = 96 MG/DL 2237) RISK RATIO LDL/HDL (test code = 2.40 RATIO 2238) CBC W/AUTO [id number] 00:00:00 Test Item Value Reference Range Interpretation Comments WBC (test code = 1001) 2.3 K/UL RBC (test code = 1002) 4.64 M/UL HEMOGLOBIN (test code = 1003) 13.9 G/DL HEMATOCRIT (test code = 1004) 42.2 % MCV (test code = 1005) 90.9 fL MCH (test code = 1006) 30.0 PG MCHC (test code = 1007) 32.9 G/DL RDW (test code = 1038) 13.6 % NEUTROPHILS (test code = 1008) 68 % LYMPHOCYTES (test code = 1010) 17 % MONOCYTES (test code = 1011) 14 % EOSINOPHILS (test code = 1012) % BASOPHILS (test code = 1013) % PLATELET COUNT (test code = 1015) 135 K/UL CBC W/AUTO [id number] 00:00:00 Test Item Value Reference Range Interpretation Comments WBC (test code = 1001) 2.3 K/UL RBC (test code = 1002) 4.64 M/UL HEMOGLOBIN (test code = 1003) 13.9 G/DL HEMATOCRIT (test code = 1004) 42.2 % MCV (test code = 1005) 90.9 fL MCH (test code = 1006) 30.0 PG MCHC (test code = 1007) 32.9 G/DL RDW (test code = 1038) 13.6 % NEUTROPHILS (test code = 1008) 68 % LYMPHOCYTES (test code = 1010) 17 % MONOCYTES (test code = 1011) 14 % EOSINOPHILS (test code = 1012) % BASOPHILS (test code = 1013) % PLATELET COUNT (test code = 1015) 135 K/UL CBC W/AUTO [id number] 00:00:00 Test Item Value Reference Range Interpretation Comments WBC (test code = 1001) 2.3 K/UL RBC (test code = 1002) 4.64 M/UL HEMOGLOBIN (test code = 1003) 13.9 G/DL HEMATOCRIT (test code = 1004) 42.2 % MCV (test code = 1005) 90.9 fL MCH (test code = 1006) 30.0 PG MCHC (test code = 1007) 32.9 G/DL RDW (test code = 1038) 13.6 % NEUTROPHILS (test code = 1008) 68 % LYMPHOCYTES (test code = 1010) 17 % MONOCYTES (test code = 1011) 14 % EOSINOPHILS (test code = 1012) % BASOPHILS (test code = 1013) % PLATELET COUNT (test code = 1015) 135 K/UL HEMOGLOBIN [id number] 00:00:00 Test Item Value Reference Range Interpretation Comments HEMOGLOBIN A1c (test code = 65229) 5.7 % HEMOGLOBIN [id number] 00:00:00 Test Item Value Reference Range Interpretation Comments HEMOGLOBIN A1c (test code = 22237) 5.7 % HEMOGLOBIN [id number] 00:00:00 Test Item Value Reference Range Interpretation Comments HEMOGLOBIN A1c (test code = 90295) 5.7 % [id number] 00:00:00 Test Item Value Reference Range Interpretation Comments TSH (test code = 2821) 0.2 UIU/ML [id number] 00:00:00 Test Item Value Reference Range Interpretation Comments TSH (test code = 2821) 0.2 UIU/ML [id number] 00:00:00 Test Item Value Reference Range Interpretation Comments TSH (test code = 2821) 0.2 UIU/ML COMPREHENSIVE METABOLIC [id number] 00:00:00 Test Item Value Reference Range Interpretation Comments GLUCOSE (test code = 2217) 103 MG/DL BUN (test code = 2208) 16 MG/DL CREATININE (test code = 2214) 0.77 MG/DL eGFR AMER. (test code 104 ML/MIN/1.73 = 64314) eGFR NON- AMER. (test 90 ML/MIN/1.73 code = 55323) CALCULATED BUN/CREAT (test 21 RATIO code = 2235) SODIUM (test code = 2231) 137 MEQ/L POTASSIUM (test code = 2228) 3.8 MEQ/L CHLORIDE (test code = 2215) 101 MEQ/L CARBON DIOXIDE (test code = 25 MEQ/L 2205) CALCIUM (test code = 2209) 9.5 MG/DL PROTEIN, TOTAL (test code = 7.3 G/DL 2228) ALBUMIN (test code = 2201) 4.0 G/DL CALCULATED GLOBULIN (test 3.3 G/DL code = 2240) CALCULATED A/G RATIO (test 1.2 RATIO code = 2234) BILIRUBIN, TOTAL (test code = 0.9 MG/DL 2206) ALKALINE PHOSPHATASE (test 135 U/L code = 2204) SGOT (AST) (test code = 2218) 17 U/L SGPT (ALT) (test code = 2219) 19 U/L
[2023-03-28] MEDS ORDERED: ACETAMINOPHEN 500 MG TAB ONE (00:34)
[2023-03-28] MEDS ORDERED: KETOROLAC 30 MG/ML INJ ONE (00:34)
[2023-03-28 00:59] LABS: Absolute Lymphocytes (CBC) 0.2 K/uL (0.7-4.9); Hematocrit 37.3 % (36.0-45.0); Lymphocytes % 3.8 % (15.3-44.8); MCV 90.3 fL (80-100); MPV 7.2 fL (7.6-11.3); RBC Red Blood Cell Count 4.13 M/uL (3.86-4.86)
[2023-03-28 01:22] LABS: Albumin 3.4 g/dL (3.4-5.0); Bilirubin Total 0.6 mg/dL (0.2-1.0); Protein, Total 6.9 g/dL (6.4-8.2)
[2023-03-28 01:30] LABS: SARS-CoV-2 Antigen Rapid Res Negative (Negative)
[2023-03-28] MEDS ORDERED: ONDANSETRON 4 MG (ODT) TAB ONE (03:02)
[2023-03-28 03:15] LABS: Specific Gravity 1.018 (1.005-1.030); Urine Bacteria None Seen /HPF (<20); Urine Bilirubin NEGATIVE (Negative); Urine Blood Negative (Negative); Urine Clarity Turbid (Clear); Urine Color Yellow (Yellow); Urine Glucose NEGATIVE (Negative); Urine Mucus Slight /HPF (None Seen); Urine Protein TRACE (Negative); Urine RBC <5 /HPF (None Seen); Urine Urobilinogen Normal (Normal)
[2023-03-28 03:19] LABS: Blood Morphology Comment NOT SEEN (NOT SEEN); Platelet Estimate ADEQ
--- NOTE | 2023-03-28 03:23 | EDPHYS ---
Physician Documentation [facility] Name: Dionne Robledo Age: 57 yrs Sex: Female : 1965 Arrival Date: 03/27/2023 Time: 21:32 Bed 17 Private MD: ED Physician Kei Pope HPI: 03/28 03:39 This 57 yrs old Female presents to ER via Ambulatory with complaints of Fever, rt Nausea. 03:39 Patient presents to the ED with fever, nausea, generalized body aches starting today. rt The patient reports a fullness in her ears. Denies cough, difficulty breathing, other acute complaints. Symptoms are mild in severity, no other aggravating or alleviating factors.. Historical: - Allergies: 03/27 23:04 Codeine; vc1 - PMHx: 23:04 stroke; vc1 - PSHx: 23:04 Cholecystectomy; vc1 - Immunization history:: Client reports receiving the 2nd dose of the Covid vaccine. - Social history:: Smoking status: Patient reports the use of cigarette tobacco products, 1-2 cigs/day. - Family history:: not pertinent. ROS: 03/28 03:39 Constitutional: Negative for fever, chills, and weight loss, Cardiovascular: Negative rt for chest pain, palpitations, and edema, Respiratory: Negative for shortness of breath, cough, wheezing, and pleuritic chest pain, Skin: Negative for injury, rash, and discoloration, Neuro: Negative for headache, weakness, numbness, tingling, and seizure, Psych: Negative for depression, anxiety, suicide ideation, homicidal ideation, and hallucinations. Constitutional: Positive for body aches, fever. Abdomen/GI: Positive for nausea, Negative for abdominal pain, vomiting. Exam: 03:39 Constitutional: This is a well developed, well nourished patient who is awake, alert, rt and in no acute distress. Head/Face: Normocephalic, atraumatic. Neck: Trachea midline, no thyromegaly or masses palpated, and no cervical lymphadenopathy. Supple, full range of motion without nuchal rigidity, or vertebral point tenderness. No Meningismus. Chest/axilla: Normal chest wall appearance and motion. Nontender with no deformity. No lesions are appreciated. Cardiovascular: Regular rate and rhythm with a normal S1 and S2. No gallops, murmurs, or rubs. Normal PMI, no JVD. No pulse deficits. Respiratory: Lungs have equal breath sounds bilaterally, clear to auscultation and percussion. No rales, rhonchi or wheezes noted. No increased work of breathing, no retractions or nasal flaring. Abdomen/GI: Soft, non-tender, with normal bowel sounds. No distension or tympany. No guarding or rebound. No evidence of tenderness throughout. Skin: Warm, dry with normal turgor. Normal color with no rashes, no lesions, and no evidence of cellulitis. MS/ Extremity: Pulses equal, no cyanosis. Neurovascular intact. Full, normal range of motion. Neuro: Awake and alert, GCS 15, oriented to person, place, time, and situation. Cranial nerves II-XII grossly intact. Motor strength 5/5 in all extremities. Sensory grossly intact. Cerebellar exam normal. Normal gait. Psych: Awake, alert, with orientation to person, place and time. Behavior, mood, and affect are within normal limits. 03:39 ENT: Left otitis media is present, right TM is clear, mild posterior pharyngeal erythema. Vital Signs: 03/27 23:01 Pulse 75; Resp 17; Temp 100(O); Pulse Ox 92% ; Weight 79.38 kg; Height 5 ft. 4 in. ; vc1 Pain 10/10; 03/28 00:53 BP 114 / 68; Pulse 69; Resp 18 S; Temp 97.9(O); Pulse Ox 95% on R/A; aa9 02:30 BP 108 / 85; Pulse 68; Resp 17; Pulse Ox 98% on R/A; aa9 03:36 BP 107 / 72; Pulse 65; Resp 17; Temp 98.7; Pulse Ox 99% on R/A; aa9 03/27 23:01 Body Mass Index 30.04 (79.38 kg, 162.56 cm) vc1 03/27 23:01 Pain Scale: Adult vc1 MDM: 00:09 Patient medically screened. rt 03:39 Differential diagnosis: viral Infection, bacterial infection, URI, UTI. Data reviewed: rt vital signs, nurses notes, lab test result(s). Test considered but Not performed: X-ray: No respiratory symptoms, x-ray not. Counseling: I had a detailed discussion with the patient and/or guardian regarding: the historical points, exam findings, and any diagnostic results supporting the discharge/admit diagnosis, lab results, the need for outpatient follow up. Response to treatment: the patient's symptoms have markedly improved after treatment. 03/28 00:18 Order name: CBC with Diff; Complete Time: 03:20 rt 03/28 00:18 Order name: CMP; Complete Time: 01:49 rt 03/28 00:18 Order name: SARS RAPID; Complete Time: 01:49 rt 03/28 00:18 Order name: Influenza Screen (a \T\ B); Complete Time: 02:41 rt 03/28 00:18 Order name: UAM; Complete Time: 03:20 rt 03/28 01:19 Order name: Manual Differential; Complete Time: 03:20 EDMS Administered Medications: 00:46 Drug: Acetaminophen PO 1000 mg Route: PO; aa9 00:46 Drug: Ketorolac IM 30 mg Route: IM; Site: right deltoid; aa9 03:03 Drug: Ondansetron PO 4 mg Route: PO; aa9 Disposition Summary: 03/28/23 03:22 Discharge Ordered Location: Home rt Problem: new rt Symptoms: are resolved rt Condition: Stable rt Diagnosis - Acute serous otitis media, left ear rt - Viral syndrome rt Followup: rt - With: Private Physician - When: 2 - 3 days - Reason: Discharge Instructions: - Discharge Summary Sheet rt - Otitis Media, Adult rt - Viral Illness, Adult rt Forms: - Work release form aa9 - Medication Reconciliation Form rt - Thank You Letter rt - Antibiotic Education rt - Prescription Opioid Use rt Prescriptions: - ondansetron 4 mg Oral Tablet,disintegrating - take 1 tablet by ORAL route every 6 hours; 15 tablet; Refills: 0, Product rt Selection Permitted - Augmentin 875-125 mg Oral Tablet - take 1 tablet by ORAL route every 12 hours for 10 days; 20 tablet; Refills: 0, rt Product Selection Permitted Signatures: Dispatcher [employer] Breann Gauthier RN RN vc1 Radha Madden RN RN aa9 Kei Pope MD MD rt Corrections: (The following items were deleted from the chart) 03/27 23:06 23:04 Allergies: Codeine; vc1 vc1
--- NOTE | 2023-03-28 03:23 | ER ---
Nurse's Notes [facility] Name: Dionne Robledo Age: 57 yrs Sex: Female : 1965 Arrival Date: 03/27/2023 Time: 21:32 Bed 17 Private MD: Diagnosis: Acute serous otitis media, left ear;Viral syndrome Presentation: 03/27 23:01 Chief complaint: Patient states: I was at work and my legs started hurting then my vc1 whole body started hurting. I went home and I was running a fever. Coronavirus screen: Vaccine status: Patient reports receiving the 2nd dose of the covid vaccine. Moderna chills, fever, muscle pain, runny nose, Client presents with at least one sign or symptom that may indicate coronavirus-19. Ebola Screen: Patient negative for fever greater than or equal to 101.5 degrees Fahrenheit, and additional compatible Ebola Virus Disease symptoms Patient denies exposure to infectious person. Patient denies travel to an Ebola-affected area in the 21 days before illness onset. No symptoms or risks identified at this time. Initial Sepsis Screen: Does the patient meet any 2 criteria? No. Patient's initial sepsis screen is negative. Does the patient have a suspected source of infection? No. Patient's initial sepsis screen is negative. Risk Assessment: Do you want to hurt yourself or someone else? Patient reports no desire to harm self or others. Onset of symptoms was March 27, 2023. Care prior to arrival: Medication(s) given: Tylenol, 500mg. 23:01 Method Of Arrival: Ambulatory vc1 23:01 Acuity: ANDRÉS 3 vc1 Historical: - Allergies: 23:04 Codeine; vc1 - PMHx: 23:04 stroke; vc1 - PSHx: 23:04 Cholecystectomy; vc1 - Immunization history:: Client reports receiving the 2nd dose of the Covid vaccine. - Social history:: Smoking status: Patient reports the use of cigarette tobacco products, 1-2 cigs/day. - Family history:: not pertinent. Screenin:06 Abuse screen: Denies threats or abuse. Nutritional screening: No deficits noted. vc1 Tuberculosis screening: No symptoms or risk factors identified. 03/28 03:25 [facility] ED Fall Risk Assessment (Adult) History of falling in the last 3 months, aa9 including since admission No falls in past 3 months (0 pts) Confusion or Disorientation No (0 pts) Intoxicated or Sedated No (0 pts) Impaired Gait No (0 pts) Mobility Assist Device Used No (0 pt) Altered Elimination No (0 pt) Score/Fall Risk Level 0 - 2 = Low Risk Oriented to surroundings, Maintained a safe environment, Educated pt \T\ family on fall prevention, incl call for assistance when getting out of bed. Assessment: 00:47 General: Appears uncomfortable, ill, Behavior is calm, cooperative. Pain: Complains of aa9 pain in generalized Noted to be resistant to movement. Neuro: Level of Consciousness is awake, alert, obeys commands, Oriented to person, place, time, situation. Cardiovascular: Patient's skin is warm and dry. Respiratory: Airway is patent Respiratory effort is even, unlabored. Respiratory: Denies cough, shortness of breath. GI: Abdomen is flat, Reports nausea, Patient currently denies diarrhea, vomiting. Derm: Skin is intact, is healthy with good turgor. 03:04 Reassessment: Patient appears in no apparent distress at this time. Patient and/or aa9 family updated on plan of care and expected duration. Pain level reassessed. Patient is alert, oriented x 3, equal unlabored respirations, skin warm/dry/pink. 03:36 Reassessment: Patient appears in no apparent distress at this time. Patient and/or aa9 family updated on plan of care and expected duration. Pain level reassessed. Patient is alert, oriented x 3, equal unlabored respirations, skin warm/dry/pink. Patient states feeling better. Vital Signs: 03/27 23:01 Pulse 75; Resp 17; Temp 100(O); Pulse Ox 92% ; Weight 79.38 kg; Height 5 ft. 4 in. ; vc1 Pain 09/04; 03/28 00:53 BP 114 / 68; Pulse 69; Resp 18 S; Temp 97.9(O); Pulse Ox 95% on R/A; aa9 02:30 BP 108 / 85; Pulse 68; Resp 17; Pulse Ox 98% on R/A; aa9 03:36 BP 107 / 72; Pulse 65; Resp 17; Temp 98.7; Pulse Ox 99% on R/A; aa9 03/27 23:01 Body Mass Index 30.04 (79.38 kg, 162.56 cm) vc1 03/27 23:01 Pain Scale: Adult vc1 ED Course: 03/27 21:40 Patient arrived in ED. mr 21:46 Kei Pope MD is Attending Physician. rt 23:04 Triage completed. vc1 23:06 Arm band placed on right wrist. vc1 03/28 00:24 Radha Madden, RN is Primary Nurse. aa9 00:42 Inserted saline lock: 20 gauge in right forearm, using aseptic technique. Blood aa9 collected. 00:46 Influenza Screen (a \T\ B) Sent. aa9 00:46 SARS RAPID Sent. aa9 00:46 CMP Sent. aa9 00:47 CBC with Diff Sent. aa9 00:48 Patient has correct armband on for positive identification. Bed in low position. Call aa9 light in reach. Side rails up X2. Adult w/ patient. Pulse ox on. NIBP on. 03:25 Diet: Patient given snack. Tolerated well. aa9 03:25 No provider procedures requiring assistance completed. aa9 03:37 IV discontinued, intact, bleeding controlled, No redness/swelling at site. Pressure aa9 dressing applied. Administered Medications: 00:46 Drug: Acetaminophen PO 1000 mg Route: PO; aa9 00:46 Drug: Ketorolac IM 30 mg Route: IM; Site: right deltoid; aa9 03:03 Drug: Ondansetron PO 4 mg Route: PO; aa9 Medication: 03/27 23:07 VIS not applicable for this client. vc1 Outcome: 03/28 03:22 Discharge ordered by MD. rt 03:37 Discharged to home ambulatory. aa9 03:37 Condition: stable 03:37 Discharge instructions given to patient, Instructed on discharge instructions, follow up and referral plans. medication usage, Demonstrated understanding of instructions, follow-up care, medications, Prescriptions given X 2. 03:37 Patient left the ED. aa9 Signatures: GalvanKourtney rodas Breann Lowe RN RN vc1 Radha Madden, RN RN aa9 Kei Pope MD MD rt Corrections: (The following items were deleted from the chart) 03/27 23:06 23:04 Allergies: Codeine; vc1 vc1
[2023-03-28 04:11] VITALS: BP 107/72; TEMP 98.7; O2SAT 99
== END 2023-03-28 03:37 | disposition home or self-care (01) ==
LOC: ER 21:32
DX: H65.02 Acute serous otitis media, left ear (principal); B34.9 Viral infection, unspecified; Z20.822 Contact with and (suspected) exposure to COVID-19; Z72.0 Tobacco use; Z88.5 Allergy status to narcotic agent; Z86.73 Personal history of transient ischemic attack (TIA), and cerebral infarction without residual deficits
CPT/HCPCS: 85025; 81001; 36415; 80053; 87804 ×2; 87811; Q0162; 96372; 99284

== ENCOUNTER 2023-04-23 12:10 | Emergency (ER) | payer OTHER ==
--- OUTSIDE RECORDS SUMMARY | 2023-04-23 12:24 | XMS REPORT | Continuity of Care Document ---
:1965 Author Organization [facility] t Address [address] [facility] [address] [place] [address] Care Team Providers Name Role Phone Lizzie Panda Primary Care Physician [phone] Doctor Unassigned, [place] Attending Clinician Unavailable Dolores Salazar Attending Clinician DOLORES LEONG Attending Clinician Unavailable Payers Payer Name Policy Type Policy Number Effective Date Expiration Date S ource Problems Condition Condition Condition Status Onset Resolution Last Treating Co mments Source Name Details Category Date Date Treatment Clinician Date Chronic Chronic Disease Active 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 00:00: [place] infection infection 00 [facility] No known No known Disease Unive rs active active ity of problems problems [facility] Pain in Pain in Diagnosis Active Commo n joint of joint of Spirit right knee right knee [facility] Primary Primary Diagnosis Active Commo n osteoarthr osteoarthr Sp xochitl itis of itis of - [facility] right knee right knee [facility] Patellar Patellar Diagnosis Active Com mon tendinitis tendinitis Sp xochitl of right of right - [facility] knee knee [facility] Allergies, Adverse Reactions, Alerts Allergy [...] Adverse Active Info Not Common Reaction Available [facility] Social History Social Habit Start Date Stop Date Quantity Comments Source Tobacco use and 2019-08-22 2019-08-22 Current user Univers ity of exposure 00:00:00 00:00:00 [facility] Alcohol intake 2019-08-22 2019-08-22 Current drinker Unive rsity of 00:00:00 00:00:00 of alcohol [facility] (finding) [facility] Sex Ass[birth year] At [birth year] Universit y of 00:00:00 00:00:00 [facility] Smoking Status Start Date Stop Date Source Current some day smoker 2019-08-22 00:00:00 [facility] Medications Ordered Filled Start Stop Current Ordering [...] Spirit 00:00: 00:00 - [facility] 00 :00 [facility] aspirin 81 2020-0 Yes 81mg Take 81 mg U nivers mg chewable 5-22 by mouth ity of tablet 19:38: daily. [address] aspirin 81 2020-0 Yes 81mg Take 81 mg U nivers mg chewable 5-22 by mouth ity of tablet 19:38: daily. [address] aspirin 81 2020-0 Yes 81mg Take 81 mg U nivers mg chewable 5-22 by mouth ity of tablet 19:38: daily. [address] aspirin 81 2020-0 Yes 81mg Take 81 mg U nivers mg chewable 5-22 by mouth ity of tablet 19:38: daily. [address] aspirin 81 2020-0 Yes 81mg Take 81 mg U nivers mg chewable 5-22 by mouth ity of tablet 19:38: daily. [address] Augmentin 2020-0 No 1mg 875 mg-125 [...] mg 3-09 capsule 00:00: 00 ibuprofen Yes [id number] 600mg Take 1 U nivers 600 mg 6-24 tablet by ity of tablet 00:00: mouth [place] 00 every 6 Medical (six) Branch hours as needed for Pain (scale 4-6). phenazopyri Yes [id number] 200mg Take 1 Univers dine 200 mg 6-24 tablet by ity of tablet 00:00: mouth 3 (three) Medical times Branch daily as needed for Pain. ibuprofen Yes [id number] 600mg Take 1 U nivers 600 mg 6-24 tablet by ity of tablet 00:00: mouth [place] 00 every 6 Medical (six) Branch hours as needed for Pain (scale 4-6). phenazopyri Yes [id number] 200mg Take 1 Univers dine 200 mg 6-24 tablet by ity of tablet 00:00: mouth (three) Medical times Branch daily as needed for Pain. ibuprofen Yes [id number] 600mg Take 1 U nivers 600 mg 6-24 tablet by ity of tablet 00:00: mouth [place] 00 every 6 Medical (six) Branch hours as needed for Pain (scale 4-6). phenazopyri 0 Yes [id number] 200mg Take 1 Univers dine 200 mg 6-24 tablet by ity of tablet 00:00: mouth 3 (three) Medical times Branch daily as needed for Pain. ibuprofen Yes [id number] 600mg Take 1 U nivers 600 mg 6-24 tablet by ity of tablet 00:00: mouth [place] 00 every 6 Medical (six) Branch hours as needed for Pain (scale 4-6). phenazopyri 0 Yes [id number] 200mg Take 1 Univers dine 200 mg 6-24 tablet by ity of tablet 00:00: mouth 3 (three) Medical times Branch daily as needed for Pain. ibuprofen 2019-0 Yes [id number] 600mg Take 1 U nivers 600 mg 6-24 tablet by ity of tablet 00:00: mouth [place] 00 every 6 Medical (six) Branch hours as needed for Pain (scale 4-6). phenazopyri 2018-0 Yes [id number] 200mg Take 1 Univers dine 200 mg 6-24 tablet by ity of tablet 00:00: mouth 3 [place] 00 (three) Medical times Branch daily as needed for Pain. ibuprofen Yes [id number] 600mg Take 1 U nivers 600 mg 6-24 tablet by ity of tablet 00:00: mouth [place] 00 every 6 Medical (six) Branch hours as needed for Pain (scale 4-6). phenazopyri 0 Yes [id number] 200mg Take 1 Univers dine 200 mg 6-24 tablet by ity of tablet 00:00: mouth 3 [place] 00 (three) Medical times Branch daily as needed for Pain. ibuprofen Yes [id number] 600mg Take 1 U nivers 600 mg 6-24 tablet by ity of tablet 00:00: mouth [place] 00 every 6 Medical (six) Branch hours as needed for Pain (scale 4-6). phenazopyri Yes [id number] 200mg Take 1 Univers dine 200 mg 6-24 tablet by ity of tablet 00:00: mouth 3 [place] 00 (three) Medical times Branch daily as needed for Pain. ibuprofen 0 Yes [id number] 600mg Take 1 U nivers 600 mg 6-24 tablet by ity of tablet 00:00: mouth [place] 00 every 6 Medical (six) Branch hours as needed for Pain (scale 4-6). phenazopyri 0 Yes [id number] 200mg Take 1 Univers dine 200 mg 6-24 tablet by ity of tablet 00:00: mouth 3 [place] 00 (three) Medical times Branch daily as needed for Pain. ibuprofen 0 Yes [id number] 600mg Take 1 U nivers 600 mg 6-24 tablet by ity of tablet 00:00: mouth [place] 00 every 6 Medical (six) Branch hours as needed for Pain (scale 4-6). phenazopyri 0 Yes [id number] 200mg Take 1 Univers dine 200 mg 6-24 tablet by ity of tablet 00:00: mouth 3 [place] 00 (three) Medical times Branch daily as needed for Pain. ibuprofen 2019-0 Yes [id number] 600mg Take 1 U nivers 600 mg 6-24 tablet by ity of tablet 00:00: mouth [place] 00 every 6 Medical (six) Branch hours as needed for Pain (scale 4-6). phenazopyri 2019-0 Yes [id number] 200mg Take 1 Univers dine 200 mg 6-24 tablet by ity of tablet 00:00: mouth 3 [place] 00 (three) Medical times Branch daily as needed for Pain. ibuprofen 2018-0 Yes [id number] 600mg Take 1 U nivers 600 mg 6-24 tablet by ity of tablet 00:00: mouth [place] 00 every 6 Medical (six) Branch hours as needed for Pain (scale 4-6). phenazopyri 2019-0 Yes [id number] 200mg Take 1 Univers dine 200 mg 6-24 tablet by ity of tablet 00:00: mouth 3 [place] 00 (three) Medical times Branch daily as needed for Pain. ibuprofen 2018-0 Yes [id number] 600mg Take 1 U nivers 600 mg 6-24 tablet by ity of tablet 00:00: mouth [place] 00 every 6 Medical (six) Branch hours as needed for Pain (scale 4-6). phenazopyri 2018-0 Yes [id number] 200mg Take 1 Univers dine 200 mg 6-24 tablet by ity of tablet 00:00: mouth 3 [place] 00 (three) Medical times Branch daily as needed for Pain. ibuprofen 2018-0 Yes [id number] 600mg Take 1 U nivers 600 mg 6-24 tablet by ity of tablet 00:00: mouth [place] 00 every 6 Medical (six) Branch hours as needed for Pain (scale 4-6). phenazopyri 2019-0 Yes [id number] 200mg Take 1 Univers dine 200 mg 6-24 tablet by ity of tablet 00:00: mouth 3 [place] 00 (three) Medical times Branch daily as needed for Pain. ibuprofen 2019-0 Yes [id number] 600mg Take 1 U nivers 600 mg 6-24 tablet by ity of tablet 00:00: mouth [place] 00 every 6 Medical (six) Branch hours as needed for Pain (scale 4-6). phenazopyri 2019-0 Yes [id number] 200mg Take 1 Univers dine 200 mg 6-24 tablet by ity of tablet 00:00: mouth 3 [place] 00 (three) Medical times Branch daily as needed for Pain. ibuprofen 20190 Yes [id number] 600mg Take 1 U nivers 600 mg 6-24 tablet by ity of tablet 00:00: mouth [place] 00 every 6 Medical (six) Branch hours as needed for Pain (scale 4-6). phenazopyri 2019-0 Yes [id number] 200mg Take 1 Univers dine 200 mg 6-24 tablet by ity of tablet 00:00: mouth 3 [place] 00 (three) Medical times Branch daily as needed for Pain. ibuprofen 0 Yes [id number] 600mg Take 1 U nivers 600 mg 6-24 tablet by ity of tablet 00:00: mouth [place] 00 every 6 Medical (six) Branch hours as needed for Pain (scale 4-6). phenazopyri 0 Yes [id number] 200mg Take 1 Univers dine 200 mg 6-24 tablet by ity of tablet 00:00: mouth 3 [place] 00 (three) Medical times Branch daily as needed for Pain. ibuprofen 0 Yes [id number] 600mg Take 1 U nivers 600 mg 6-24 tablet by ity of tablet 00:00: mouth [place] 00 every 6 Medical (six) Branch hours as needed for Pain (scale 4-6). phenazopyri 0 Yes [id number] 200mg Take 1 Univers dine 200 mg 6-24 tablet by ity of tablet 00:00: mouth 3 [place] 00 (three) Medical times Branch daily as needed for Pain. ibuprofen 0 Yes [id number] 600mg Take 1 U nivers 600 mg 6-24 tablet by ity of tablet 00:00: mouth [place] 00 every 6 Medical (six) Branch hours as needed for Pain (scale 4-6). phenazopyri 2018-0 Yes [id number] 200mg Take 1 Univers dine 200 mg 6-24 tablet by ity of tablet 00:00: mouth 3 [place] 00 (three) Medical times Branch daily as needed for Pain. ibuprofen 2018-0 Yes [id number] 600mg Take 1 U nivers 600 mg 6-24 tablet by ity of tablet 00:00: mouth [place] 00 every 6 Medical (six) Branch hours as needed for Pain (scale 4-6). phenazopyri 2019-0 Yes [id number] 200mg Take 1 Univers dine 200 mg 6-24 tablet by ity of tablet 00:00: mouth 3 [place] 00 (three) Medical times Branch daily as needed for Pain. ibuprofen 2019-0 Yes [id number] 600mg Take 1 U nivers 600 mg 6-24 tablet by ity of tablet 00:00: mouth [place] 00 every 6 Medical (six) Branch hours as needed for Pain (scale 4-6). phenazopyri 2019-0 Yes [id number] 200mg Take 1 Univers dine 200 mg 6-24 tablet by ity of tablet 00:00: mouth 3 [place] 00 (three) Medical times Branch daily as needed for Pain. ibuprofen 2018-0 Yes [id number] 600mg Take 1 U nivers 600 mg 6-24 tablet by ity of tablet 00:00: mouth [place] 00 every 6 Medical (six) Branch hours as needed for Pain (scale 4-6). phenazopyri 2018-0 Yes [id number] 200mg Take 1 Univers dine 200 mg 6-24 tablet by ity of tablet 00:00: mouth 3 [place] 00 (three) Medical times Branch daily as needed for Pain. phenazopyri 0 Yes [id number] 200mg Take 1 Univers dine 200 mg 6-24 tablet by ity of tablet 00:00: mouth 3 [place] 00 (three) Medical times Branch daily as needed for Pain. ibuprofen 0 Yes [id number] 600mg Take 1 U nivers 600 mg 6-24 tablet by ity of tablet 00:00: mouth [place] 00 every 6 Medical (six) Branch hours as needed for Pain (scale 4-6). phenazopyri 2018-0 Yes [id number] 200mg Take 1 Univers dine 200 mg 6-24 tablet by ity of tablet 00:00: mouth 3 [place] 00 (three) Medical times Branch daily as needed for Pain. ibuprofen 0 Yes [id number] 600mg Take 1 U nivers 600 mg 6-24 tablet by ity of tablet 00:00: mouth [place] 00 every 6 Medical (six) Branch hours as needed for Pain (scale 4-6). aspirin 81 2019-0 Yes 81mg Take 81 mg U nivers mg chewable 4-05 by mouth ity of tablet 21:37: daily. [address] Branch aspirin 81 2019-0 Yes 81mg Take 81 mg U nivers mg chewable 4-05 by mouth ity of tablet 21:37: daily. [place] [address] Medical Branch aspirin 81 2019-0 Yes 81mg Take 81 mg U nivers mg chewable 4-05 by mouth ity of tablet 21:37: daily. [address] Branch aspirin 81 2019-0 Yes 81mg Take 81 mg U nivers mg chewable 4-05 by mouth ity of tablet 21:37: daily. [address] Branch aspirin 81 2019-0 Yes 81mg Take 81 mg U nivers mg chewable 4-05 by mouth ity of tablet 21:37: daily. [address] Branch aspirin 81 2019-0 Yes 81mg Take 81 mg U nivers mg chewable 4-05 by mouth ity of tablet 21:37: daily. [address] Branch aspirin 81 2019-0 Yes 81mg Take 81 mg U nivers mg chewable 4-05 by mouth ity of tablet 21:37: daily. [address] Branch aspirin 81 2019-0 Yes 81mg Take 81 mg U nivers mg chewable 4-05 by mouth ity of tablet 21:37: daily. [address] Branch aspirin 81 2019-0 Yes 81mg Take 81 mg U nivers mg chewable 4-05 by mouth ity of tablet 21:37: daily. [address] Branch aspirin 81 2019-0 Yes 81mg Take 81 mg U nivers mg chewable 4-05 by mouth ity of tablet 21:37: daily. [address] Branch aspirin 81 2019-0 Yes 81mg Take 81 mg U nivers mg chewable 4-05 by mouth ity of tablet 21:37: daily. [address] Branch aspirin 81 2019-0 Yes 81mg Take 81 mg U nivers mg chewable 4-05 by mouth ity of tablet 21:37: daily. [address] Branch aspirin 81 2019-0 Yes 81mg Take 81 mg U nivers mg chewable 4-05 by mouth ity of tablet 21:37: daily. [address] Branch aspirin 81 2019-0 Yes 81mg Take 81 mg U nivers mg chewable 4-05 by mouth ity of tablet 21:37: daily. [address] Branch aspirin 81 2019-0 Yes 81mg Take 81 mg U nivers mg chewable 4-05 by mouth ity of tablet 21:37: daily. [address] Branch aspirin 81 2019-0 Yes 81mg Take 81 mg U nivers mg chewable 4-05 by mouth ity of tablet 21:37: daily. [address] Branch aspirin 81 2019-0 Yes 81mg Take 81 mg U nivers mg chewable 4-05 by mouth ity of tablet 21:37: daily. [address] aspirin 81 2019-0 Yes 81mg Take 81 mg U nivers mg chewable 4-05 by mouth ity of tablet 21:37: daily. [address] erythromyci 2017-11 No 5(0.5 n 5 [...] by ity of mg tablet 00:00: mouth ([facility]) Medical times Branch daily as needed for Abdominal pain for up to 30 doses. dicyclomine 2018-0 Yes 20mg Take 1 Univ ers (BENTYL) 20 6-21 tablet by ity of mg tablet 00:00: mouth ([facility]) Medical times Branch daily as needed for Abdominal pain for up to 30 doses. dicyclomine 2018-0 Yes 20mg Take 1 Univ ers (BENTYL) 20 6-21 tablet by ity of mg tablet 00:00: mouth ([facility]) Medical times Branch daily as needed for Abdominal pain for up to 30 doses. dicyclomine 2018-0 Yes 20mg Take 1 Univ ers (BENTYL) 20 6-21 tablet by ity of mg tablet 00:00: mouth ([facility]) Medical times Branch daily as needed for Abdominal pain for up to 30 doses. dicyclomine 2018-0 Yes 20mg Take 1 Univ ers (BENTYL) 20 6-21 tablet by ity of mg tablet 00:00: mouth ([facility]) Medical times Branch daily as needed for [...] by ity of mg tablet 00:00: mouth ([facility]) Medical times Branch daily as needed for [...] by ity of mg tablet 00:00: mouth ([facility]) Medical times Branch daily as needed for [...] by ity of mg tablet 00:00: mouth ([facility]) Medical times Branch daily as needed for [...] by ity of mg tablet 00:00: mouth ([facility]) Medical times Branch daily as needed for [...] Sodium Sodium [place] defined [facility] Artificial Artificial Yes Robert not Common Tears Tears [place] defined [facility] Yes Robert not Comm on [place] defined [facility] MethylPREDN MethylPREDN Yes Robert not Common ISolone ISolone [place] defined [facility] Valacyclovi Valacyclovi Yes Robert not Common r HCl r HCl Oro defined [facility] Aspirin Low Aspirin Low Yes Robert not Common Dose Dose Oro defined [facility] PredniSONE PredniSONE Yes Robert not Common O[place] defined [facility] Amoxicillin Amoxicillin Yes Robert not Common -Pot -Pot [place] defined [facility] Clavulanate Clavulanate [facility] Immunizations Ordered Immunization Filled Immunization [...] Performed INSURANCE CORRESPONDENCE 2021-02-22 05:01:00 Doctor Alecia, [facility] AUTHORIZATION FOR RELEASE 2021-01-25 06:01:00 Doctor Unassigned, [facility] EXTERNAL PROVIDER RECORDS 2020-02-16 05:01:00 Doctor Unassigned, [facility] EXTERNAL PROVIDER RECORDS 2020-01-29 06:01:00 Doctor Unassigned, [facility] EXTERNAL PROVIDER RECORDS 2020-01-19 06:01:00 Doctor Unassigned, [facility] Name [facility] EXTERNAL PROVIDER RECORDS 2019-08-06 05:01:00 Doctor Unassigned, [facility] Plan of Care Planned Activity Planned Date Details Comments Source Goal Plan of Care Note [code = 73745-4] Goal Plan of Care Note [code = 54494-3] Goal Plan of Care Note [code = 13952-6] Goal Plan of Care Note [code = 11383-1] Goal Plan of Care Note [code = 95356-5] Goal Plan of Care Note [code = 70160-3] Goal Plan of Care Note [code = 20669-2] Goal Plan of Care Note [code = 85625-8] Goal Plan of Care Note [code = 20928-6] Goal Plan of Care Note [code = 86707-4] Goal Plan of Care Note [code = 45816-7] Goal Plan of Care Note [code = 19368-7] Goal Plan of Care Note [code = 69821-4] Goal Plan of Care Note [code = 68235-5] Goal Plan of Care Note [code = 00945-6] Goal Plan of Care Note [code = 10041-4] Goal Plan of Care Note [code = 62616-7] Goal Plan of Care Note [code = 18840-5] Goal Plan of Care Note [code = 92792-6] Goal Plan of Care Note [code = 64124-5] Goal Plan of Care Note [code = 86704-9] Goal Plan of Care Note [code = 35286-2] Goal Plan of Care Note [code = 38969-6] Goal Plan of Care Note [code = 82720-4] Goal Plan of Care Note [code = 21843-3] Goal Plan of Care Note [code = 94172-5] Goal Plan of Care Note [code = 31459-9] Goal Plan of Care Note [code = 37692-8] Goal Plan of Care Note [code = 12490-1] Goal Plan of Care Note [code = 86234-8] Goal Plan of Care Note [code = 98282-1] Goal Plan of Care Note [code = 10513-9] Goal Plan of Care Note [code = 08843-2] Goal Plan of Care Note [code = 26145-0] Goal Plan of Care Note [code = 83815-4] Goal Plan of Care Note [code = 11119-9] Goal Plan of Care Note [code = 88403-5] Goal Plan of Care Note [code = 36855-4] Goal Plan of Care Note [code = 11773-8] Goal Plan of Care Note [code = 69530-9] Goal Plan of Care Note [code = 73339-5] Goal Plan of Care Note [code = 56229-4] Goal Plan of Care Note [code = 02631-7] Goal Plan of Care Note [code = 20443-9] Goal Plan of Care Note [code = 45455-5] Goal Plan of Care Note [code = 45574-9] Goal Plan of Care Note [code = 23098-6] Goal Plan of Care Note [code = 06352-7] Goal Plan of Care Note [code = 59454-7] Goal Plan of Care Note [code = 59764-8] Goal Plan of Care Note [code = 44300-2] Goal Plan of Care Note [code = 10317-9] Goal Plan of Care Note [code = 35073-3] Goal Plan of Care Note [code = 77863-3] Goal Plan of Care Note [code = 24328-2] Goal Plan of Care Note [code = 84895-2] Goal Plan of Care Note [code = 36903-5] Goal Plan of Care Note [code = 78244-2] Goal Plan of Care Note [code = 21231-2] Goal Plan of Care Note [code = 42851-1] Goal Plan of Care Note [code = 33272-8] Goal Plan of Care Note [code = 12745-7] Goal Plan of Care Note [code = 85299-9] Goal Plan of Care Note [code = 43811-5] Goal Plan of Care Note [code = 07291-0] Goal Plan of Care Note [code = 39629-6] Goal Plan of Care Note [code = 52094-0] Goal Plan of Care Note [code = 73483-2] Goal Plan of Care Note [code = 01540-4] Goal Plan of Care Note [code = 71809-9] Goal Plan of Care Note [code = 92442-2] Goal Plan of Care Note [code = 70983-3] Goal Plan of Care Note [code = 65693-8] Goal Plan of Care Note [code = 55735-5] Goal Plan of Care Note [code = 78339-9] Goal Plan of Care Note [code = 07689-0] Goal Plan of Care Note [code = 37742-2] Goal Plan of Care Note [code = 17305-5] Goal Plan of Care Note [code = 37608-4] Goal Plan of Care Note [code = 71293-7] Goal Plan of Care Note [code = 31862-2] Goal Plan of Care Note [code = 44085-2] Goal Plan of Care Note [code = 58445-5] Goal Plan of Care Note [code = 23290-7] Goal Plan of Care Note [code = 93543-5] Goal Plan of Care Note [code = 92853-7] Goal Plan of Care Note [code = 27476-4] Goal Plan of Care Note [code = 15073-0] Goal Plan of Care Note [code = 42385-6] Goal Plan of Care Note [code = 90960-9] Goal Plan of Care Note [code = 02751-2] Goal Plan of Care Note [code = 01986-4] Goal Plan of Care Note [code = 38270-2] Goal Plan of Care Note [code = 16494-7] Goal Plan of Care Note [code = 28437-7] Goal Plan of Care Note [code = 43004-4] Goal Plan of Care Note [code = 40708-2] Goal Plan of Care Note [code = 71726-4] Goal Plan of Care Note [code = 87933-4] Goal Plan of Care Note [code = 70498-5] Goal Plan of Care Note [code = 51384-0] Goal Plan of Care Note [code = 74503-7] Goal Plan of Care Note [code = 38035-0] Goal Plan of Care Note [code = 14849-1] Goal Plan of Care Note [code = 89663-0] Goal Plan of Care Note [code = 24357-2] Goal Plan of Care Note [code = 43056-1] Goal Plan of Care Note [code = 84431-5] Goal Plan of Care Note [code = 74146-8] Goal Plan of Care Note [code = 88116-3] Goal Plan of Care Note [code = 91227-3] Goal Plan of Care Note [code = 96228-3] Goal Plan of Care Note [code = 55176-2] Goal Plan of Care Note [code = 48159-1] Goal Plan of Care Note [code = 31561-9] Goal Plan of Care Note [code = 67760-2] Goal Plan of Care Note [code = 29683-0] Goal Plan of Care Note [code = 67742-3] Goal Plan of Care Note [code = 36320-3] Goal Plan of Care Note [code = 13674-0] Goal Plan of Care Note [code = 78670-9] Goal Plan of Care Note [code = 84230-5] Goal Plan of Care Note [code = 23564-2] Goal Plan of Care Note [code = 83264-2] Goal Plan of Care Note [code = 12815-5] Goal Plan of Care Note [code = 27611-5] Goal Plan of Care Note [code = 23199-3] Goal Plan of Care Note [code = 86601-4] Goal Plan of Care Note [code = 09987-6] Goal Plan of Care Note [code = 05455-2] Goal Plan of Care Note [code = 40098-0] Goal Plan of Care Note [code = 63036-5] Goal Plan of Care Note [code = 96757-7] Goal Plan of Care Note [code = 11242-9] Goal Plan of Care Note [code = 85965-4] Goal Plan of Care Note [code = 87403-1] Goal Plan of Care Note [code = 70360-9] Goal Plan of Care Note [code = 85431-6] Goal Plan of Care Note [code = 96660-0] Goal Plan of Care Note [code = 06101-1] Goal Plan of Care Note [code = 17031-8] Goal Plan of Care Note [code = 69403-7] Goal Plan of Care Note [code = 98804-3] Goal Plan of Care Note [code = 30461-8] Goal Plan of Care Note [code = 18040-1] Goal Plan of Care Note [code = 85297-6] Goal Plan of Care Note [code = 97280-4] Goal Plan of Care Note [code = 24141-7] Goal Plan of Care Note [code = 10264-5] Goal Plan of Care Note [code = 49278-3] Goal Plan of Care Note [code = 30359-9] Goal Plan of Care Note [code = 93432-5] Goal Plan of Care Note [code = 30737-5] Goal Plan of Care Note [code = 41552-5] Goal Plan of Care Note [code = 45855-7] Goal Plan of Care Note [code = 00689-4] Goal Plan of Care Note [code = 75025-6] Goal Plan of Care Note [code = 70453-6] Goal Plan of Care Note [code = 77148-7] Goal Plan of Care Note [code = 62356-5] Goal Plan of Care Note [code = 41491-0] Goal Plan of Care Note [code = 85956-0] Goal Plan of Care Note [code = 41799-1] Goal Plan of Care Note [code = 72144-6] Goal Plan of Care Note [code = 93366-7] Goal Plan of Care Note [code = 06506-2] Goal Plan of Care Note [code = 52677-0] Goal Plan of Care Note [code = 27449-3] Goal Plan of Care Note [code = 10524-6] Goal Plan of Care Note [code = 90736-7] Goal Plan of Care Note [code = 78543-2] Goal Plan of Care Note [code = 33018-2] Goal Plan of Care Note [code = 51450-4] Goal Plan of Care Note [code = 86779-4] Goal Plan of Care Note [code = 35750-0] Goal Plan of Care Note [code = 16729-1] Goal Plan of Care Note [code = 97426-2] Goal Plan of Care Note [code = 41494-5] Goal Plan of Care Note [code = 07361-0] Goal Plan of Care Note [code = 05295-9] Goal Plan of Care Note [code = 83428-9] Goal Plan of Care Note [code = 67084-9] Goal Plan of Care Note [code = 93535-6] Goal Plan of Care Note [code = 32052-6] Goal Plan of Care Note [code = 06754-2] Goal Plan of Care Note [code = 16271-0] Goal Plan of Care Note [code = 90139-0] Goal Plan of Care Note [code = 96926-3] Goal Plan of Care Note [code = 78086-8] Goal Plan of Care Note [code = 44926-8] Goal Plan of Care Note [code = 57929-5] Goal Plan of Care Note [code = 74795-5] Goal Plan of Care Note [code = 57000-8] Goal Plan of Care Note [code = 34710-7] Goal Plan of Care Note [code = 69464-8] Goal Plan of Care Note [code = 42638-9] Goal Plan of Care Note [code = 94090-1] Goal Plan of Care Note [code = 47941-7] Goal Plan of Care Note [code = 95595-1] Goal Plan of Care Note [code = 81725-2] Goal Plan of Care Note [code = 05977-7] Goal Plan of Care Note [code = 46003-1] Goal Plan of Care Note [code = 49358-7] Goal Plan of Care Note [code = 22848-6] Goal Plan of Care Note [code = 86352-7] Goal Plan of Care Note [code = 08859-3] Goal Plan of Care Note [code = 45799-9] Goal Plan of Care Note [code = 27799-7] Goal Plan of Care Note [code = 67519-5] Goal Plan of Care Note [code = 69896-9] Goal Plan of Care Note [code = 63699-7] Goal Plan of Care Note [code = 95116-2] Goal Plan of Care Note [code = 82784-5] Goal Plan of Care Note [code = 37117-6] Goal Plan of Care Note [code = 04012-4] Goal Plan of Care Note [code = 28550-6] Goal Plan of Care Note [code = 69220-0] Goal Plan of Care Note [code = 91397-1] Goal Plan of Care Note [code = 40803-7] Goal Plan of Care Note [code = 01891-4] Goal Plan of Care Note [code = 40203-1] Goal Plan of Care Note [code = 53588-0] Goal Plan of Care Note [code = 53468-1] Goal Plan of Care Note [code = 87918-4] Goal Plan of Care Note [code = 88352-0] Goal Plan of Care Note [code = 46824-6] Goal Plan of Care Note [code = 79292-8] Goal Plan of Care Note [code = 96251-1] Goal Plan of Care Note [code = 85438-3] Goal Plan of Care Note [code = 60604-3] Goal Plan of Care Note [code = 05164-3] Goal Plan of Care Note [code = 12374-3] Goal Plan of Care Note [code = 65534-1] Goal Plan of Care Note [code = 48321-1] Goal Plan of Care Note [code = 67300-0] Goal Plan of Care Note [code = 60556-9] Goal Plan of Care Note [code = 81607-6] Goal Plan of Care Note [code = 19099-2] Goal Plan of Care Note [code = 86915-5] Goal Plan of Care Note [code = 34427-0] Goal Plan of Care Note [code = 72753-9] Goal Plan of Care Note [code = 74473-9] Goal Plan of Care Note [code = 81998-9] Goal Plan of Care Note [code = 43273-4] Goal Plan of Care Note [code = 48746-0] Goal Plan of Care Note [code = 93834-2] Goal Plan of Care Note [code = 87862-7] Goal Plan of Care Note [code = 32640-5] Goal Plan of Care Note [code = 24486-2] Goal Plan of Care Note [code = 20732-7] Goal Plan of Care Note [code = 62414-3] Goal Plan of Care Note [code = 06473-0] Goal Plan of Care Note [code = 86459-2] Goal Plan of Care Note [code = 44350-0] Goal Plan of Care Note [code = 08076-2] Goal Plan of Care Note [code = 52414-0] Goal Plan of Care Note [code = 05484-5] Goal Plan of Care Note [code = 38998-5] Goal Plan of Care Note [code = 29311-5] Goal Plan of Care Note [code = 61885-4] Goal Plan of Care Note [code = 28501-5] Goal Plan of Care Note [code = 77463-4] Goal Plan of Care Note [code = 95297-4] Goal Plan of Care Note [code = 73014-2] Goal Plan of Care Note [code = 83684-3] Goal Plan of Care Note [code = 83230-5] Goal Plan of Care Note [code = 11148-2] Goal Plan of Care Note [code = 72437-3] Goal Plan of Care Note [code = 17078-2] Goal Plan of Care Note [code = 34198-4] Goal Plan of Care Note [code = 16184-2] Goal Plan of Care Note [code = 60001-7] Goal Plan of Care Note [code = 47607-7] Goal Plan of Care Note [code = 80198-5] Goal Plan of Care Note [code = 93478-4] Goal Plan of Care Note [code = 34030-4] Goal Plan of Care Note [code = 28337-6] Goal Plan of Care Note [code = 94178-2] Goal Plan of Care Note [code = 67040-1] Goal Plan of Care Note [code = 64732-6] Goal Plan of Care Note [code = 19443-4] Goal Plan of Care Note [code = 43488-5] Goal Plan of Care Note [code = 76810-4] Goal Plan of Care Note [code = 77553-2] Goal Plan of Care Note [code = 18510-8] Goal Plan of Care Note [code = 22683-9] Goal Plan of Care Note [code = 65381-0] Goal Plan of Care Note [code = 23815-6] Goal Plan of Care Note [code = 11417-2] Goal Plan of Care Note [code = 52449-8] Goal Plan of Care Note [code = 46104-5] Goal Plan of Care Note [code = 59888-7] Goal Plan of Care Note [code = 78283-2] Goal Plan of Care Note [code = 28499-0] Goal Plan of Care Note [code = 77070-2] Encounters Start End Encounter Admission Attending Care Care Encounter Source Date/Time Date/Time Type Type Clinicians Facility Department ID 2023-03-15 Outpatient STLMLC STLMLC [id number] Common 10:34:00 [id number] [facility] 2021-12-21 Outpatient STLMLC STLMLC [id number] Common 11:45:05 [id number] [facility] 2021-12-21 Outpatient STLMLC STLMLC [id number] Common 11:44:56 [id number] [facility] 2023-03-08 2023-03-08 Outpatient SFA SFA [id number] 023 [place] 14:32:50 14:32:50 0413 [facility] 2023-02-17 2023-02-17 Outpatient SFA SFA [id number] 023 [place] 12:42:23 12:42:23 0325 [facility] 2023-01-22 2023-01-22 Outpatient SFA SFA [id number] 023 [place] 14:20:56 14:20:56 0227 [facility] 2023-01-19 2023-01-19 Outpatient SFA SFA [id number] 023 [place] 10:30:32 10:30:32 0224 [facility] 2023-01-06 2023-01-06 Outpatient SFA SFA [id number] 023 [place] 12:26:49 12:26:49 021 [facility] 2022-12-25 2022-12-25 Outpatient SFA SFA [id number] 023 [place] 15:57:46 15:57:46 0130 [facility] 2022-12-19 2022-12-19 Outpatient SFA SFA [id number] 023 [place] 17:07:18 17:07:18 0124 [facility] 2022-12-18 2022-12-18 Outpatient SFA SFA 03224-3 023 [place] 16:52:50 16:52:50 0123 [facility] 2022-12-18 2022-12-18 Outpatient [id number]- [id number] 707c7t-i 00:00:00 00:00:00 Visit ax1v-2004 q7s-6564-5 -7r79-be9 e60-wa9d08 d964lso51 6efb87 2022-11-24 2022-11-24 Outpatient SFA SFA 07737-3 022 [place] 13:12:34 13:12:34 1230 [facility] 2022-11-24 2022-11-24 Outpatient 3z1g2o41- [id number] 0f 1v9g82-7 00:00:00 00:00:00 Visit 3eee-4766 eee-4766-b -j3cc-6m1 2df-1b8c51 q94s50388 u05143 2022-10-17 2022-10-17 Outpatient SFA SFA 08233-6 022 [place] 10:39:17 10:39:17 1122 [facility] 2022-10-17 2022-10-17 Outpatient [id number]- [id number] 435m65-9 00:00:00 00:00:00 Visit 666d-4f5b 66d-4f5b-a -b5nh-42q 1cd-93ef67 c39m49o91 f38e31 2022-10-16 2022-10-16 Outpatient SFA SFA [id number] 022 [place] 11:47:24 11:47:24 1121 [facility] 2022-10-16 2022-10-16 Outpatient 5jrf695k- [id number] 4c ze018d-3 00:00:00 00:00:00 Visit 6p64-975s p37-129y-t -ve7n-dux u1m-sgr9qv 0rb376e3q 469c5d 2022-06-27 2022-06-27 Outpatient 92mksl93- [id number] nmws72-f 00:00:00 00:00:00 Visit d810-829k 062-461b-8 -9q29-62i e09-46q16w 89t1w672p 7x763f 2022-05-22 2022-05-22 Outpatient 800z5xo5- [id number] 0j2se1-3 00:00:00 00:00:00 Visit 9v36-19w8 s85-82g5-2 -947d-464 47d-464aa0 tl14y4p2q 4a8b5a 2021-02-22 2021-02-22 Orders Doctor RAHAT 1.2.840.114 [id number] Univers 00:00:00 00:00:00 Only Unassigned, KIRA 350.1.13.10 ity of [facility] 4.2.7.2.686 [place] as [phone] [address] 2021-01-25 2021-01-25 Orders Doctor RAHAT 1.2.840.114 [id number] Univers 00:00:00 00:00:00 Only Unassigned, KIRA 350.1.13.10 ity of [facility] 4.2.7.2.686 [place] [phone] [place] [address] [address] 2020 2020 Out[facility] [id number] Common 14:00:00 14:00:00 [facility] 2020-05-24 2020-05-24 Telephone ODeb, UNIVERSIT 1.2.840.114 [id number] Univers 00:00:00 00:00:00 Dolores Y HEALTH 350.1.13.10 i ty of [facility] [id number] [address] [place] 2020-05-24 2020-05-24 Telephone ODeb, UNIVERSIT 1.2.840.114 [id number] 00:00:00 00:00:00 Dolores Y HEALTH 350.1.13.10 CLINICS 4.2.7.2.686 [id number] [facility] 2020-04-22 2020-04-22 Telephone Dang, UNIVERSIT 1.2.840.114 [id number] Univers 00:00:00 00:00:00 Dolores Y HEALTH 350.1.13.10 i [id number] [address] 2020-04-22 2020-04-22 Telephone ReedAbbyShakila, UNIVERSIT 1.2.840.114 [id number] 00:00:00 00:00:00 Dolores Y HEALTH 350.1.13.10 CLINICS 4.2.7.2.686 [id number] [facility] 2020-04-16 2020-04-16 Outpatient R DANG, [facility] [id number] Univers 15:00:00 15:00:[address] [facility] 2020-04-16 2020-04-16 Telemedici Dang, UNIVERSIT 1.2.840.11 [id number] [facility] 07:41:39 08:11:39 ne Visit Dolores Y HEALTH 350.1.13.10 ity [place] [id number] [address] 2020-04-16 2020-04-16 Telemedici ReedDemetriaShakila, UNIVERSIT 1.2.840.11 [id number] 07:41:39 08:11:39 ne Visit Dolores Y HEALTH 350.1.13.10 CLINICS 4.2.7.2.686 [id number] [facility] 2020-02-16 2020-02-16 Orders Doctor RAHAT 1.2.840.114 [id number] Univers 00:00:00 00:00:00 Only Unassigned, KIRA 350.1.13.10 ity of [facility] 4.2.7.2.686 [place] [id number] [address] 2020-02-16 2020-02-16 Orders Doctor RAHAT 1.2.840.114 [id number] 00:00:00 00:00:00 Only Unassigned, KIRA 350.1.13.10 [facility] 4.2.7.2.686 [id number] 009 2020-01-29 2020-01-29 Orders Doctor RAHAT 1.2.840.114 [id number] Univers 00:00:00 00:00:00 Only Unassigned, KIRA 350.1.13.10 ity of [facility] 4.2.7.2.686 [place] [id number] [address] 2020-01-29 2020-01-29 Orders Doctor RAHAT 1.2.840.114 [id number] 00:00:00 00:00:00 Only Unassigned, KIRA 350.1.13.10 [facility] 4.2.7.2.686 [id number] 2020-01-27 2020-01-27 Telephone Dang, UNIVERSIT 1.2.840.114 [id number] Univers 00:00:00 00:00:00 Dolores Y HEALTH 350.1.13.10 i ty [place] [id number] [address] 2020-01-27 2020-01-27 Telephone Dang, UNIVERSIT 1.2.840.114 [id number] 00:00:00 00:00:00 Dolores Y HEALTH 350.1.13.10 CLINICS 4.2.7.2.686 [id number] [facility] 2020-01-22 2020-01-22 Telephone OJulienShakila, UNIVERSIT 1.2.840.114 [id number] Univers 00:00:00 00:00:00 Dolores Y HEALTH 350.1.13.10 i ty [place] [id number] [address] 2020-01-22 2020-01-22 Telephone OJulienShakila, UNIVERSIT 1.2.840.114 [id number] 00:00:00 00:00:00 Dolores Y HEALTH 350.1.13.10 CLINICS 4.2.7.2.686 [id number] [facility] 2020-01-19 2020-01-19 Orders Doctor GIANG 1.2.840.114 [id number] [facility] 00:00:00 00:00:00 Only Unassigned, KIRA 350.1.13.10 ity of [facility] 4.2.7.2.686 [place] [id number] [address] 2020-01-14 2020-01-14 Telephone O'Shakila, UNIVERSIT 1.2.840.114 [id number] Univers 00:00:00 00:00:00 Dolores Y HEALTH 350.1.13.10 i ty [place] [id number] [address] 2020-01-12 2020-01-12 Telephone O'Shakila, UNIVERSIT 1.2.840.114 [id number] Univers 00:00:00 00:00:00 Dolores Y HEALTH 350.1.13.10 i ty [place] [id number] [address] 2019-12-30 2019-12-30 Telephone OJulienShakila, UNIVERS 1.2.840.114 [id number] Univers 00:00:00 00:00:00 Dolores Y HEALTH 350.1.13.10 i ty [place] [id number] [address] 2019-12-23 2019-12-23 Telephone OJulienShakila, [facility] 1.2.840.114 [id number] Univers 00:00:00 00:00:00 Dolores Y HEALTH 350.1.13.10 i ty [place] [id number] [address] 2019-08-06 2019-08-06 Orders Doctor GIANG 1.2.840.114 [id number] Univers 00:00:00 00:00:00 Only Unassigned, KIRA 350.1.13.10 ity of [facility] 4.2.7.2.686 [place] [id number] [address] 2019-07-30 2019-07-30 Telephone O'Shakila, UNIVERS 1.2.840.114 [id number] Univers 00:00:00 00:00:00 Dolores Y HEALTH 350.1.13.10 i ty of CLINICS 4.2.7.2.686 Ernesto s [id number] [facility] 071 Branch Results Test Description Test [...] OF TISSUE PIECES: 1SUBMITTED IN C ASSETTE(S): i0QIWPCP: FormalinCOMMENT S:Entirely submitted intact. B) SPEC IMEN LABELED: EndocervixSIZE/ WEIGHT: 1.3x1.2x0.2 cm AggregateSPECIM EN COLOR: TanNUMBER OF TISSUE PIECES: multipleSUBMITTED IN CASSETTE(S): x1 MEDIUM: FormalinCOMMENT S:Filtered and entirely submitted. PATHOLOGIST: (test code = 8250) (NOTE) Jerardo Hinton M.D. Board Certified in Anatomic and Cl inicalPathology, [place] Board of Pathol [facility] Specimens processed and interpreted at [facility], [address] [place] [address] 0835 4, , CLIA: [id number] CPT: (test code = 8400) (NOTE) 8830 5x2 CPL has important pathology staff changes e ffective 01/24/2023. New pathology s taff will provide uninterrupted, excellent patient care and clinical consul tation. See URL: [email or web address]. UNLESS OTHERWISE INDIC ATED, ALL TESTING PERFORMED AT [facility], [address] [place] [address] FRITZ SHEPPARD DIRECTOR: JERARDO HINTON M.D. [place] NUMBER [id number] [facility] [place] [id number] PAP TEST, THINPREP, [id number] 06:23:50 Test Item Value Reference Range Interpretation Comments SOURCE: (test Cervical/Endoce code = 8001) rvical SLIDES: (test 1 code = 8011) LMP: (test code SEE NOTE POST MENOPA USAL = 8021) SPECIMEN (NOTE) Satisfactory f or ADEQUACY: (test evaluation. code = 26076) Endocervical cells/transform ation zone component present. INTERPRETATION: NILM/NO EPITH. (test code = ABNORMALITY;SEE 83218) BELOW -------- - NEGATIVE FOR INTRAEPITHELIAL LESION OR MALIGNANCY ( NILM) -------- -------- -------- ---- OTHER COMMENTS: (NOTE) Shift in makenna ra (test code = suggestive of b acterial 8081) vaginosis. NURSE TRANSPLANT Royal Rivas : (test code = 8101) QC TECHNOLOGIST: ADRIAN Diaz (test code = LY,CT(ASCP) 8111) LOCATION: (test (NOTE) Specimens pr ocessed and code = 74218) interpreted at [facility], [address] [place], [place] [address], Phone: , CLIA: [id number] CPT: (test code (NOTE) 48379 UNLESS OTHERWISE = 8140) INDICATED, COMP UTER [...] avai lable as applicable. VAGINAL PATHOGENS DNA [id number] 16:05:17 Test Item Value Reference Range Interpretation [...] and Trichomonas vag inalis nucleic acid. * [facility] has important patho logy staff changes effecti ve 01/24/2023. New pathology staff will provide uninterrupted, excellent patient care an d clinical consultation. S ee URL: [email or web address]. UNLESS OTHE RWISE INDICATED, ALL TESTING PERFORMED AT [facility] [address] [place] [address] CLIA: [id number], CAP: [id number] CT/NG, NAAT, [id number] 14:18:46 Test Item Value Reference Range Interpretation Comments CHLAMYDIA, NAAT, NEGATIVE NEGATIVE A negative result does THINPREP (test code not excl ude low level = 52070) infection, specimensamplin g error, or collection erro r. Testing is performed the [employer] 680 systems usingre al-time Polymerase Cesar n Reaction (PCR) method. GONORRHEA, NAAT, NEGATIVE NEGATIVE A negative result does THINPREP (test code not excl ude low level = 53189) infection, specimensamplin g error, or collection erro r. Testing is performed wi th the Natalie Sally 680 systems usingre al-time Polymerase Cesar n Reaction (PCR) method. HPV HIGH RISK WITH GENOTYPE, [id number] 14:07:23 Test Item Value Reference Range Interpretation Comments HPV HIGH RISK INTERP POSITIVE NEGATIVE A (test code = 53017) HPV 16 (test code = POSITIVE A 31003) HPV 18 (test code = NEGATIVE 35759) HPV, HR, OTHER NEGATIVE Testing meth odology is GENOTYPES (test code real-ti me PCR utilizing = 36266) hydrolysis prob es with the Natalie Sally [...] of infection or sp ecimen sampling error. [facility] has important p athology staff changes e ffective 01/24/2023. New pathology staff will provide uninter rupted, excellent patie nt care and clinical consultation. S ee URL: [email or web address]. UNLESS OTHERWISE INDICATED, ALL TESTING PERFORMED AT [facility] [address] [place] [address] CLIA : [id number], CAP : [id number] CULTURE, [id number] 11:19:59SPECIMEN NUMBER: [id number] CULTURE, URINE SPECIMEN NUMBER: [id number] SPECIMEN COMMENT: URINE SOURCE:URINE REPORT STATUS: FINAL FINAL REPORT: 12/21/2022 NO GROWTH AFTER 36 HOURS INCUBATION UNLESS OTHERW ISE INDICATED, ALL TESTING PERFORMED [facility] [employer] [employer] [address] [place], [place] [id number] SUPERVISOR [employer]: JERARDO HINTON M.D. CLIA NUMBER [id number] [place]. [id number]. PYLORI (BREATH)2022-04-25 13:14:53 Test Item Value Reference Range Interpretation Comments H. PYLORI (BREATH) (test code = POSITIVE NEGATIVE A 22476) H. PYLORI (BREATH)2022-04-25 00:00:00 Test Item Value Reference Range Interpretation Comments H. PYLORI (BREATH) (test code = POSITIVE 31394) H. PYLORI (BREATH)2022-04-25 00:00:00 Test Item Value Reference Range Interpretation Comments H. PYLORI (BREATH) (test code = POSITIVE 78322) H. PYLORI (BREATH)2022-04-25 00:00:00 Test Item Value Reference Range Interpretation Comments H. PYLORI (BREATH) (test code = POSITIVE 48627) H. PYLORI (BREATH)2022-04-25 00:00:00 Test Item Value Reference Range Interpretation Comments H. PYLORI (BREATH) (test code = POSITIVE 34442) H. PYLORI (BREATH)2022-04-25 00:00:00 Test Item Value Reference Range Interpretation Comments H. PYLORI (BREATH) (test code = POSITIVE 50028) H. PYLORI (BREATH)2022-04-25 00:00:00 Test Item Value Reference Range Interpretation Comments H. PYLORI (BREATH) (test code = POSITIVE 47827) H. PYLORI (BREATH)2022-04-25 00:00:00 Test Item Value Reference Range Interpretation Comments H. PYLORI (BREATH) (test code = POSITIVE 28085) H. PYLORI (BREATH)2022-04-25 00:00:00 Test Item Value Reference Range Interpretation Comments H. PYLORI (BREATH) (test code = POSITIVE 70044) H. PYLORI (BREATH)2022-04-25 00:00:00 Test Item Value Reference Range Interpretation Comments H. PYLORI (BREATH) (test code = POSITIVE 14813) H. PYLORI (BREATH)2022-04-25 00:00:00 Test Item Value Reference Range Interpretation Comments H. PYLORI (BREATH) (test code = POSITIVE 39161) H. PYLORI (BREATH)2022-04-25 00:00:00 Test Item Value Reference Range Interpretation Comments H. PYLORI (BREATH) (test code = POSITIVE 31371) UNLABELLED [id number] 06:02:48 Test Item Value Reference Range Interpretation Comments NOTE: (test code = SPECIMEN RECEIVED WITHOUT 39693) PATIENT'S NAME. UNLESS OTHERWISE INDIC ATED, ALL TESTING PERFORM ED ATCLINICAL PATHOLOGY [facility] [address] [place] [address] LABORATOR Y DIRECTOR: JERARDO RESTREPO M.D. CLIA NUMBER [id number] CAP ACCREDITATION N O. [id number] UNLABELLED SPECIMEN [ADDED]2022-04-23 00:00:00 Test Item Value Reference Range Interpretation Comments NOTE: (test code = 71397) UNLABELLED SPECIMEN [ADDED]2022-04-23 00:00:00 Test Item Value Reference Range Interpretation Comments NOTE: (test code = 08359) UNLABELLED SPECIMEN [ADDED]2022-04-23 00:00:00 Test Item Value Reference Range Interpretation Comments NOTE: (test code = 74511) UNLABELLED SPECIMEN [ADDED]2022-04-23 00:00:00 Test Item Value Reference Range Interpretation Comments NOTE: (test code = 23294) UNLABELLED SPECIMEN [ADDED]2022-04-23 00:00:00 Test Item Value Reference Range Interpretation Comments NOTE: (test code = 52538) UNLABELLED SPECIMEN [ADDED]2022-04-23 00:00:00 Test Item Value Reference Range Interpretation Comments NOTE: (test code = 31334) TSH, THIRD [id number] 05:20:11 Test Item Value Reference Range Interpretation Comments TSH, THIRD 3.150 UIU/ML 0.400-4.100 UNLESS OTHERWI SE GENERATION (test INDICATED, ALL TESTING code = 2821) PERFORMED [facility] PATH[facility]Y [facility], [id number] [place] [address] DIRECTOR: JERARDO HINTON M.D. CLIA NUMBER [id number] CAP ACCREDITATION N O. [id number] 00:00:00 Test Item Value Reference Range Interpretation Comments TSH, THIRD GENERATION (test code 3.150 UIU/ML = 2821) [id number] 00:00:00 Test Item Value Reference Range Interpretation Comments TSH, THIRD GENERATION (test code 3.150 UIU/ML = 2821) [id number] 00:00:00 Test Item Value Reference Range Interpretation Comments TSH, THIRD GENERATION (test code 3.150 UIU/ML = 2821) [id number] 00:00:00 Test Item Value Reference Range Interpretation Comments TSH, THIRD GENERATION (test code 3.150 UIU/ML = 2821) [id number] 00:00:00 Test Item Value Reference Range Interpretation Comments TSH, THIRD GENERATION (test code 3.150 UIU/ML = 2821) [id number] 00:00:00 Test Item Value Reference Range Interpretation Comments TSH, THIRD GENERATION (test code 3.150 UIU/ML = 2821) [id number] 00:00:00 Test Item Value Reference Range Interpretation Comments TSH, THIRD GENERATION (test code 3.150 UIU/ML = 2821) [id number] 00:00:00 Test Item Value Reference Range Interpretation Comments TSH, THIRD GENERATION (test code 3.150 UIU/ML = 2821) [id number] 00:00:00 Test Item Value Reference Range Interpretation Comments TSH, THIRD GENERATION (test code 3.150 UIU/ML = 2821) [id number] 00:00:00 Test Item Value Reference Range Interpretation Comments TSH, THIRD GENERATION (test code 3.150 UIU/ML = 2821) [id number] 00:00:00 Test Item Value Reference Range Interpretation Comments TSH, THIRD GENERATION (test code 3.150 UIU/ML = 2821) [id number] 00:00:00 Test Item Value Reference Range Interpretation Comments TSH, THIRD GENERATION (test code 3.150 UIU/ML = 2821) [id number] 00:00:00 Test Item Value Reference Range Interpretation Comments TSH, THIRD GENERATION (test code 3.150 UIU/ML = 2821) [id number] 00:00:00 Test Item Value Reference Range Interpretation Comments TSH, THIRD GENERATION (test code 3.150 UIU/ML = 2821) [id number] 00:00:00 Test Item Value Reference Range Interpretation Comments TSH, THIRD GENERATION (test code 3.150 UIU/ML = 2821) [id number] 00:00:00 Test Item Value Reference Range Interpretation Comments TSH, THIRD GENERATION (test code 3.150 UIU/ML = 2821) [id number] 00:00:00 Test Item Value Reference Range Interpretation Comments TSH, THIRD GENERATION (test code 3.150 UIU/ML = 2821) SARS-CoV-2 (COVID-19), RT-PCR/[id number] 17:22:58 Test Item Value Reference Interpretation Comments Range SARS-CoV-2 NEGATIVE SEE NOTE SARS-CoV-2 RNA NOT INTERPRETATION DETECTEDNegat praneeth (test code = 94608) results do not preclude SARS-C oV-2 infection [...] (test code = NASOPHARYNGEAL [place]: [place] [address]) Natalie Sally Riner l-Time RT-PCR. The exp ected result or [...] provided by met hod given in report:https:// www.[employer].com/clinic ians/cl ient-communicat ions/ Alternatively, see downloadable PD F fact sheet at:https://www. TVtripcom/COVID-19-R T-PCR UNLESS OTHERWIS E INDICATED, ALL TESTING PERFORMED [facility], [address] [facility] [place] [address] FRITZ CAVAZOS DIRECTOR: JERARDO HINTON M.D. CLIA NUMBER [id number] CAP ACCREDITATION N O. [id number] SARS-CoV-2 (COVID-19) by RT-PCR (HIGH RISK)2021-12-04 00:00:00 Test Item Value Reference Range Interpretation Comments SARS-CoV-2 INTERPRETATION NEGATIVE (test code = 32868) SOURCE (test code = 37701) NASOPHARYNGEAL SARS-CoV-2 (COVID-19) by RT-PCR (HIGH RISK)2021-12-04 00:00:00 Test Item Value Reference Range Interpretation Comments SARS-CoV-2 INTERPRETATION NEGATIVE (test code = 89575) SOURCE (test code = 74279) NASOPHARYNGEAL SARS-CoV-2 (COVID-19) by RT-PCR (HIGH RISK)2021-12-04 00:00:00 Test Item Value Reference Range Interpretation Comments SARS-CoV-2 INTERPRETATION NEGATIVE (test code = 68124) SOURCE (test code = 16128) NASOPHARYNGEAL SARS-CoV-2 (COVID-19) by RT-PCR (HIGH RISK)2021-12-04 00:00:00 Test Item Value Reference Range Interpretation Comments SARS-CoV-2 INTERPRETATION NEGATIVE (test code = 90463) SOURCE (test code = 81629) NASOPHARYNGEAL SARS-CoV-2 (COVID-19) by RT-PCR (HIGH RISK)2021-12-04 00:00:00 Test Item Value Reference Range Interpretation Comments SARS-CoV-2 INTERPRETATION NEGATIVE (test code = 05455) SOURCE (test code = 17683) NASOPHARYNGEAL SARS-CoV-2 (COVID-19) by RT-PCR (HIGH RISK)2021-12-04 00:00:00 Test Item Value Reference Range Interpretation Comments SARS-CoV-2 INTERPRETATION NEGATIVE (test code = 38192) SOURCE (test code = 12489) NASOPHARYNGEAL SARS-CoV-2 (COVID-19) by RT-PCR (HIGH RISK)2021-12-04 00:00:00 Test Item Value Reference Range Interpretation Comments SARS-CoV-2 INTERPRETATION NEGATIVE (test code = 88530) SOURCE (test code = 28708) NASOPHARYNGEAL SARS-CoV-2 (COVID-19) by RT-PCR (HIGH RISK)2021-12-04 00:00:00 Test Item Value Reference Range Interpretation Comments SARS-CoV-2 INTERPRETATION NEGATIVE (test code = 66940) SOURCE (test code = 24574) NASOPHARYNGEAL SARS-CoV-2 (COVID-19) by RT-PCR (HIGH RISK)2021-12-04 00:00:00 Test Item Value Reference Range Interpretation Comments SARS-CoV-2 INTERPRETATION NEGATIVE (test code = 57325) SOURCE (test code = 20363) NASOPHARYNGEAL SARS-CoV-2 (COVID-19) by RT-PCR (HIGH RISK)2021-12-04 00:00:00 Test Item Value Reference Range Interpretation Comments SARS-CoV-2 INTERPRETATION NEGATIVE (test code = 69805) SOURCE (test code = 57077) NASOPHARYNGEAL SARS-CoV-2 (COVID-19) by RT-PCR (HIGH RISK)2021-12-04 00:00:00 Test Item Value Reference Range Interpretation Comments SARS-CoV-2 INTERPRETATION NEGATIVE (test code = 89876) SOURCE (test code = 61891) NASOPHARYNGEAL SCR MAMM BILATERAL SARAH CAD [id number] 10:53:17 Name: Dionne : 1965 Sex: F* - SCR MAMM BILATERAL SARAH CAD DIGITALBILATERAL DIGITAL SCREENING MAMMOGRAM 3D/2D WITH CAD: 10/11/2021LINICAL: Asymptomatic. Digital breast tomosynthesis was performed in addition to routine CC and MLO views. Current mammographic images were evaluated by [employer] Image[employer]covery Machine CAD (computer-aided detection) software. Comparison is made to exams dated 06/28/2020 mammogram, 12/20/2018 mammogram - [facility], and 02/02/2012 mammogram- [facility]. The tissue of both breasts is heterogeneously dense. This may lower the sensitivity of mammography. No suspicious mass, architectural distortion, malignant type calcification, or lymph node abnormality detected. Breast architecture is stable compared to prior exams.IMPRESSION: NEGATIVEThere is no mammographic evidence of malignancy. Resume annual screening mammography in one year. Scotty Luu/penrad:10/13/2021 10:53:17 Hat Binder: Merary Clark MM, [facility] sent: BIRADS 1-2 Normal Mammogram BI-RADS: 1 Negative SARS-CoV-2 (COVID-19) by RT-PCR (HIGH RISK)2021-05-06 00:00:00 Test Item Value Reference Range Interpretation Comments SARS-CoV-2 INTERPRETATION (test NEGATIVE code = 26323) SOURCE (test code = 90226) NOT SPECIFIED SARS-CoV-2 (COVID-19) by RT-PCR (HIGH RISK)2021-05-06 00:00:00 Test Item Value Reference Range Interpretation Comments SARS-CoV-2 INTERPRETATION (test NEGATIVE code = 50114) SOURCE (test code = 90090) NOT SPECIFIED SARS-CoV-2 (COVID-19) by RT-PCR (HIGH RISK)2021-05-06 00:00:00 Test Item Value Reference Range Interpretation Comments SARS-CoV-2 INTERPRETATION (test NEGATIVE code = 43547) SOURCE (test code = 84485) NOT SPECIFIED SARS-CoV-2 (COVID-19) by RT-PCR (HIGH RISK)2021-05-06 00:00:00 Test Item Value Reference Range Interpretation Comments SARS-CoV-2 INTERPRETATION (test NEGATIVE code = 11276) SOURCE (test code = 86046) NOT SPECIFIED SARS-CoV-2 (COVID-19) by RT-PCR (HIGH RISK)2021-05-06 00:00:00 Test Item Value Reference Range Interpretation Comments SARS-CoV-2 INTERPRETATION (test NEGATIVE code = 41601) SOURCE (test code = 49531) NOT SPECIFIED SARS-CoV-2 (COVID-19) by RT-PCR (HIGH RISK)2021-05-06 00:00:00 Test Item Value Reference Range Interpretation Comments SARS-CoV-2 INTERPRETATION (test NEGATIVE code = 02370) SOURCE (test code = 94285) NOT SPECIFIED SARS-CoV-2 (COVID-19) by RT-PCR (HIGH RISK)2021-05-06 00:00:00 Test Item Value Reference Range Interpretation Comments SARS-CoV-2 INTERPRETATION (test NEGATIVE code = 96589) SOURCE (test code = 38358) NOT SPECIFIED SARS-CoV-2 (COVID-19) by RT-PCR (HIGH RISK)2021-05-06 00:00:00 Test Item Value Reference Range Interpretation Comments SARS-CoV-2 INTERPRETATION (test NEGATIVE code = 52789) SOURCE (test code = 48456) NOT SPECIFIED SARS-CoV-2 (COVID-19) by RT-PCR (HIGH RISK)2021-05-06 00:00:00 Test Item Value Reference Range Interpretation Comments SARS-CoV-2 INTERPRETATION (test NEGATIVE code = 20920) SOURCE (test code = 63095) NOT SPECIFIED SARS-CoV-2 (COVID-19) by RT-PCR (HIGH RISK)2021-05-06 00:00:00 Test Item Value Reference Range Interpretation Comments SARS-CoV-2 INTERPRETATION (test NEGATIVE code = 27589) SOURCE (test code = 64918) NOT SPECIFIED SARS-CoV-2 (COVID-19) by RT-PCR (HIGH RISK)2021-05-06 00:00:00 Test Item Value Reference Range Interpretation Comments SARS-CoV-2 INTERPRETATION (test NEGATIVE code = 60666) SOURCE (test code = 67470) NOT SPECIFIED CBC W/AUTO [id number] 00:00:00 Test Item Value Reference Range Interpretation [...] NUCLEATED RBCS (test code = 0.00 K/UL 84400) HEMOGLOBIN [id number] 00:00:00 Test Item Value Reference Range Interpretation Comments HEMOGLOBIN A1c (test code = 91334) 5.2 % HEMOGLOBIN [id number] 00:00:00 Test Item Value Reference Range Interpretation Comments HEMOGLOBIN A1c (test code = 71174) 5.2 % LIPID [id number] 00:00:00 Test Item Value Reference Range Interpretation Comments CHOLESTEROL (test code = 2210) 151 MG/DL TRIGLYCERIDES (test code = 2232) 286 MG/DL HDL CHOLESTEROL (test code = 2220) 27 MG/DL CALC LDL CHOL (test code = 2237) 86 MG/DL RISK RATIO LDL/HDL (test code = 3.19 RATIO 2238) COMPREHENSIVE METABOLIC [id number] 00:00:00 Test Item Value Reference Range Interpretation Comments GLUCOSE (test code = 2217) 102 MG/DL BUN (test code = 2208) 10 MG/DL CREATININE (test code = 2214) 0.80 MG/DL eGFR AMER. (test code 96 ML/MIN/1.73 = 34756) eGFR NON- AMER. (test 83 ML/MIN/1.73 code = 23462) CALC BUN/CREAT (test code = 13 RATIO [...] ALT (test code = 2219) 14 U/L [id number] 00:00:00 Test Item Value Reference Range Interpretation Comments TSH, THIRD GENERATION (test code 1.540 UIU/ML = 2821) [id number] 00:00:00 Test Item Value Reference Range Interpretation Comments TSH, THIRD GENERATION (test code 1.540 UIU/ML = 2821) VITAMIN D, 25 [id number] 00:00:00 Test Item Value Reference Range Interpretation Comments VITAMIN D, 25 OH (test code = 4958) 20 NG/ML CBC W/AUTO [id number] 00:00:00 Test Item Value Reference Range Interpretation [...] NUCLEATED RBCS (test code = 0.00 K/UL 28825) CBC W/AUTO [id number] 00:00:00 Test Item Value Reference Range Interpretation [...] NUCLEATED RBCS (test code = 0.00 K/UL 38484) CBC W/AUTO [id number] 00:00:00 Test Item Value Reference Range Interpretation [...] NUCLEATED RBCS (test code = 0.00 K/UL 15347) HEMOGLOBIN [id number] 00:00:00 Test Item Value Reference Range Interpretation Comments HEMOGLOBIN A1c (test code = 28563) 5.2 % HEMOGLOBIN [id number] 00:00:00 Test Item Value Reference Range Interpretation Comments HEMOGLOBIN A1c (test code = 06569) 5.2 % HEMOGLOBIN [id number] 00:00:00 Test Item Value Reference Range Interpretation Comments HEMOGLOBIN A1c (test code = 86124) 5.2 % LIPID [id number] 00:00:00 Test Item Value Reference Range Interpretation Comments CHOLESTEROL (test code = 2210) 151 MG/DL TRIGLYCERIDES (test code = 2232) 286 MG/DL HDL CHOLESTEROL (test code = 2220) 27 MG/DL CALC LDL CHOL (test code = 2237) 86 MG/DL RISK RATIO LDL/HDL (test code = 3.19 RATIO 2238) LIPID [id number] 00:00:00 Test Item Value Reference Range Interpretation Comments CHOLESTEROL (test code = 2210) 151 MG/DL TRIGLYCERIDES (test code = 2232) 286 MG/DL HDL CHOLESTEROL (test code = 2220) 27 MG/DL CALC LDL CHOL (test code = 2237) 86 MG/DL RISK RATIO LDL/HDL (test code = 3.19 RATIO 2238) COMPREHENSIVE METABOLIC [id number] 00:00:00 Test Item Value Reference Range Interpretation Comments GLUCOSE (test code = 2217) 102 MG/DL BUN (test code = 2208) 10 MG/DL CREATININE (test code = 2214) 0.80 MG/DL eGFR AMER. (test code 96 ML/MIN/1.73 = 10392) eGFR NON- AMER. (test 83 ML/MIN/1.73 code = 96467) CALC BUN/CREAT (test code = 13 RATIO [...] code = 2219) 14 U/L COMPREHENSIVE METABOLIC [id number] 00:00:00 Test Item Value Reference Range Interpretation Comments GLUCOSE (test code = 2217) 102 MG/DL BUN (test code = 2208) 10 MG/DL CREATININE (test code = 2214) 0.80 MG/DL eGFR AMER. (test code 96 ML/MIN/1.73 = 16217) eGFR NON- AMER. (test 83 ML/MIN/1.73 code = 83116) CALC BUN/CREAT (test code = 13 RATIO [...] ALT (test code = 2219) 14 U/L [id number] 00:00:00 Test Item Value Reference Range Interpretation Comments TSH, THIRD GENERATION (test code 1.540 UIU/ML = 2821) [id number] 00:00:00 Test Item Value Reference Range Interpretation Comments TSH, THIRD GENERATION (test code 1.540 UIU/ML = 2821) [id number] 00:00:00 Test Item Value Reference Range Interpretation Comments TSH, THIRD GENERATION (test code 1.540 UIU/ML = 2821) VITAMIN D, 25 [id number] 00:00:00 Test Item Value Reference Range Interpretation Comments VITAMIN D, 25 OH (test code = 4958) 20 NG/ML VITAMIN D, 25 [id number] 00:00:00 Test Item Value Reference Range Interpretation Comments VITAMIN D, 25 OH (test code = 4958) 20 NG/ML CBC W/AUTO [id number] 00:00:00 Test Item Value Reference Range Interpretation [...] NUCLEATED RBCS (test code = 0.00 K/UL 99532) CBC W/AUTO [id number] 00:00:00 Test Item Value Reference Range Interpretation [...] NUCLEATED RBCS (test code = 0.00 K/UL 91846) CBC W/AUTO [id number] 00:00:00 Test Item Value Reference Range Interpretation [...] NUCLEATED RBCS (test code = 0.00 K/UL 71931) HEMOGLOBIN [id number] 00:00:00 Test Item Value Reference Range Interpretation Comments HEMOGLOBIN A1c (test code = 52930) 5.2 % HEMOGLOBIN [id number] 00:00:00 Test Item Value Reference Range Interpretation Comments HEMOGLOBIN A1c (test code = 91209) 5.2 % HEMOGLOBIN [id number] 00:00:00 Test Item Value Reference Range Interpretation Comments HEMOGLOBIN A1c (test code = 80232) 5.2 % LIPID [id number] 00:00:00 Test Item Value Reference Range Interpretation Comments CHOLESTEROL (test code = 2210) 151 MG/DL TRIGLYCERIDES (test code = 2232) 286 MG/DL HDL CHOLESTEROL (test code = 2220) 27 MG/DL CALC LDL CHOL (test code = 2237) 86 MG/DL RISK RATIO LDL/HDL (test code = 3.19 RATIO 2238) LIPID [id number] 00:00:00 Test Item Value Reference Range Interpretation Comments CHOLESTEROL (test code = 2210) 151 MG/DL TRIGLYCERIDES (test code = 2232) 286 MG/DL HDL CHOLESTEROL (test code = 2220) 27 MG/DL CALC LDL CHOL (test code = 2237) 86 MG/DL RISK RATIO LDL/HDL (test code = 3.19 RATIO 2238) COMPREHENSIVE METABOLIC [id number] 00:00:00 Test Item Value Reference Range Interpretation Comments GLUCOSE (test code = 2217) 102 MG/DL BUN (test code = 2208) 10 MG/DL CREATININE (test code = 2214) 0.80 MG/DL eGFR AMER. (test code 96 ML/MIN/1.73 = 62629) eGFR NON- AMER. (test 83 ML/MIN/1.73 code = 07886) CALC BUN/CREAT (test code = 13 RATIO [...] code = 2219) 14 U/L COMPREHENSIVE METABOLIC [id number] 00:00:00 Test Item Value Reference Range Interpretation Comments GLUCOSE (test code = 2217) 102 MG/DL BUN (test code = 2208) 10 MG/DL CREATININE (test code = 2214) 0.80 MG/DL eGFR AMER. (test code 96 ML/MIN/1.73 = 66367) eGFR NON- AMER. (test 83 ML/MIN/1.73 code = 15240) CALC BUN/CREAT (test code = 13 RATIO [...] ALT (test code = 2219) 14 U/L [id number] 00:00:00 Test Item Value Reference Range Interpretation Comments TSH, THIRD GENERATION (test code 1.540 UIU/ML = 2821) [id number] 00:00:00 Test Item Value Reference Range Interpretation Comments TSH, THIRD GENERATION (test code 1.540 UIU/ML = 2821) [id number] 00:00:00 Test Item Value Reference Range Interpretation Comments TSH, THIRD GENERATION (test code 1.540 UIU/ML = 2821) VITAMIN D, 25 [id number] 00:00:00 Test Item Value Reference Range Interpretation Comments VITAMIN D, 25 OH (test code = 4958) 20 NG/ML VITAMIN D, 25 [id number] 00:00:00 Test Item Value Reference Range Interpretation Comments VITAMIN D, 25 OH (test code = 4958) 20 NG/ML CBC W/AUTO [id number] 00:00:00 Test Item Value Reference Range Interpretation [...] NUCLEATED RBCS (test code = 0.00 K/UL 09084) CBC W/AUTO [id number] 00:00:00 Test Item Value Reference Range Interpretation [...] NUCLEATED RBCS (test code = 0.00 K/UL 34057) CBC W/AUTO [id number] 00:00:00 Test Item Value Reference Range Interpretation [...] NUCLEATED RBCS (test code = 0.00 K/UL 27007) HEMOGLOBIN [id number] 00:00:00 Test Item Value Reference Range Interpretation Comments HEMOGLOBIN A1c (test code = 32032) 5.2 % HEMOGLOBIN [id number] 00:00:00 Test Item Value Reference Range Interpretation Comments HEMOGLOBIN A1c (test code = 83869) 5.2 % HEMOGLOBIN [id number] 00:00:00 Test Item Value Reference Range Interpretation Comments HEMOGLOBIN A1c (test code = 54376) 5.2 % LIPID [id number] 00:00:00 Test Item Value Reference Range Interpretation Comments CHOLESTEROL (test code = 2210) 151 MG/DL TRIGLYCERIDES (test code = 2232) 286 MG/DL HDL CHOLESTEROL (test code = 2220) 27 MG/DL CALC LDL CHOL (test code = 2237) 86 MG/DL RISK RATIO LDL/HDL (test code = 3.19 RATIO 2238) LIPID [id number] 00:00:00 Test Item Value Reference Range Interpretation Comments CHOLESTEROL (test code = 2210) 151 MG/DL TRIGLYCERIDES (test code = 2232) 286 MG/DL HDL CHOLESTEROL (test code = 2220) 27 MG/DL CALC LDL CHOL (test code = 2237) 86 MG/DL RISK RATIO LDL/HDL (test code = 3.19 RATIO 2238) COMPREHENSIVE METABOLIC [id number] 00:00:00 Test Item Value Reference Range Interpretation Comments GLUCOSE (test code = 2217) 102 MG/DL BUN (test code = 2208) 10 MG/DL CREATININE (test code = 2214) 0.80 MG/DL eGFR AMER. (test code 96 ML/MIN/1.73 = 69822) eGFR NON- AMER. (test 83 ML/MIN/1.73 code = 99378) CALC BUN/CREAT (test code = 13 RATIO [...] code = 2219) 14 U/L COMPREHENSIVE METABOLIC [id number] 00:00:00 Test Item Value Reference Range Interpretation Comments GLUCOSE (test code = 2217) 102 MG/DL BUN (test code = 2208) 10 MG/DL CREATININE (test code = 2214) 0.80 MG/DL eGFR AMER. (test code 96 ML/MIN/1.73 = 74451) eGFR NON- AMER. (test 83 ML/MIN/1.73 code = 24822) CALC BUN/CREAT (test code = 13 RATIO [...] ALT (test code = 2219) 14 U/L [id number] 00:00:00 Test Item Value Reference Range Interpretation Comments TSH, THIRD GENERATION (test code 1.540 UIU/ML = 2821) [id number] 00:00:00 Test Item Value Reference Range Interpretation Comments TSH, THIRD GENERATION (test code 1.540 UIU/ML = 2821) [id number] 00:00:00 Test Item Value Reference Range Interpretation Comments TSH, THIRD GENERATION (test code 1.540 UIU/ML = 2821) VITAMIN D, 25 [id number] 00:00:00 Test Item Value Reference Range Interpretation Comments VITAMIN D, 25 OH (test code = 4958) 20 NG/ML VITAMIN D, 25 [id number] 00:00:00 Test Item Value Reference Range Interpretation Comments VITAMIN D, 25 OH (test code = 4958) 20 NG/ML CBC W/AUTO [id number] 00:00:00 Test Item Value Reference Range Interpretation [...] NUCLEATED RBCS (test code = 0.00 K/UL 70175) CBC W/AUTO [id number] 00:00:00 Test Item Value Reference Range Interpretation [...] NUCLEATED RBCS (test code = 0.00 K/UL 30295) CBC W/AUTO [id number] 00:00:00 Test Item Value Reference Range Interpretation [...] NUCLEATED RBCS (test code = 0.00 K/UL 53409) HEMOGLOBIN [id number] 00:00:00 Test Item Value Reference Range Interpretation Comments HEMOGLOBIN A1c (test code = 84687) 5.2 % HEMOGLOBIN [id number] 00:00:00 Test Item Value Reference Range Interpretation Comments HEMOGLOBIN A1c (test code = 09952) 5.2 % HEMOGLOBIN [id number] 00:00:00 Test Item Value Reference Range Interpretation Comments HEMOGLOBIN A1c (test code = 63584) 5.2 % LIPID [id number] 00:00:00 Test Item Value Reference Range Interpretation Comments CHOLESTEROL (test code = 2210) 151 MG/DL TRIGLYCERIDES (test code = 2232) 286 MG/DL HDL CHOLESTEROL (test code = 2220) 27 MG/DL CALC LDL CHOL (test code = 2237) 86 MG/DL RISK RATIO LDL/HDL (test code = 3.19 RATIO 2238) LIPID [id number] 00:00:00 Test Item Value Reference Range Interpretation Comments CHOLESTEROL (test code = 2210) 151 MG/DL TRIGLYCERIDES (test code = 2232) 286 MG/DL HDL CHOLESTEROL (test code = 2220) 27 MG/DL CALC LDL CHOL (test code = 2237) 86 MG/DL RISK RATIO LDL/HDL (test code = 3.19 RATIO 2238) COMPREHENSIVE METABOLIC [id number] 00:00:00 Test Item Value Reference Range Interpretation Comments GLUCOSE (test code = 2217) 102 MG/DL BUN (test code = 2208) 10 MG/DL CREATININE (test code = 2214) 0.80 MG/DL eGFR AMER. (test code 96 ML/MIN/1.73 = 47124) eGFR NON- AMER. (test 83 ML/MIN/1.73 code = 52356) CALC BUN/CREAT (test code = 13 RATIO [...] code = 2219) 14 U/L COMPREHENSIVE METABOLIC [id number] 00:00:00 Test Item Value Reference Range Interpretation Comments GLUCOSE (test code = 2217) 102 MG/DL BUN (test code = 2208) 10 MG/DL CREATININE (test code = 2214) 0.80 MG/DL eGFR AMER. (test code 96 ML/MIN/1.73 = 83526) eGFR NON- AMER. (test 83 ML/MIN/1.73 code = 74195) CALC BUN/CREAT (test code = 13 RATIO [...] ALT (test code = 2219) 14 U/L [id number] 00:00:00 Test Item Value Reference Range Interpretation Comments TSH, THIRD GENERATION (test code 1.540 UIU/ML = 2821) [id number] 00:00:00 Test Item Value Reference Range Interpretation Comments TSH, THIRD GENERATION (test code 1.540 UIU/ML = 2821) [id number] 00:00:00 Test Item Value Reference Range Interpretation Comments TSH, THIRD GENERATION (test code 1.540 UIU/ML = 2821) VITAMIN D, 25 [id number] 00:00:00 Test Item Value Reference Range Interpretation Comments VITAMIN D, 25 OH (test code = 4958) 20 NG/ML VITAMIN D, 25 [id number] 00:00:00 Test Item Value Reference Range Interpretation Comments VITAMIN D, 25 OH (test code = 4958) 20 NG/ML CBC W/AUTO [id number] 00:00:00 Test Item Value Reference Range Interpretation [...] NUCLEATED RBCS (test code = 0.00 K/UL 98242) CBC W/AUTO [id number] 00:00:00 Test Item Value Reference Range Interpretation [...] NUCLEATED RBCS (test code = 0.00 K/UL 93521) CBC W/AUTO [id number] 00:00:00 Test Item Value Reference Range Interpretation [...] NUCLEATED RBCS (test code = 0.00 K/UL 02490) HEMOGLOBIN [id number] 00:00:00 Test Item Value Reference Range Interpretation Comments HEMOGLOBIN A1c (test code = 06660) 5.2 % HEMOGLOBIN [id number] 00:00:00 Test Item Value Reference Range Interpretation Comments HEMOGLOBIN A1c (test code = 08999) 5.2 % HEMOGLOBIN [id number] 00:00:00 Test Item Value Reference Range Interpretation Comments HEMOGLOBIN A1c (test code = 41208) 5.2 % LIPID [id number] 00:00:00 Test Item Value Reference Range Interpretation Comments CHOLESTEROL (test code = 2210) 151 MG/DL TRIGLYCERIDES (test code = 2232) 286 MG/DL HDL CHOLESTEROL (test code = 2220) 27 MG/DL CALC LDL CHOL (test code = 2237) 86 MG/DL RISK RATIO LDL/HDL (test code = 3.19 RATIO 2238) LIPID [id number] 00:00:00 Test Item Value Reference Range Interpretation Comments CHOLESTEROL (test code = 2210) 151 MG/DL TRIGLYCERIDES (test code = 2232) 286 MG/DL HDL CHOLESTEROL (test code = 2220) 27 MG/DL CALC LDL CHOL (test code = 2237) 86 MG/DL RISK RATIO LDL/HDL (test code = 3.19 RATIO 2238) COMPREHENSIVE METABOLIC [id number] 00:00:00 Test Item Value Reference Range Interpretation Comments GLUCOSE (test code = 2217) 102 MG/DL BUN (test code = 2208) 10 MG/DL CREATININE (test code = 2214) 0.80 MG/DL eGFR AMER. (test code 96 ML/MIN/1.73 = 16355) eGFR NON- AMER. (test 83 ML/MIN/1.73 code = 06294) CALC BUN/CREAT (test code = 13 RATIO [...] code = 2219) 14 U/L COMPREHENSIVE METABOLIC [id number] 00:00:00 Test Item Value Reference Range Interpretation Comments GLUCOSE (test code = 2217) 102 MG/DL BUN (test code = 2208) 10 MG/DL CREATININE (test code = 2214) 0.80 MG/DL eGFR AMER. (test code 96 ML/MIN/1.73 = 01435) eGFR NON- AMER. (test 83 ML/MIN/1.73 code = 87500) CALC BUN/CREAT (test code = 13 RATIO [...] ALT (test code = 2219) 14 U/L [id number] 00:00:00 Test Item Value Reference Range Interpretation Comments TSH, THIRD GENERATION (test code 1.540 UIU/ML = 2821) [id number] 00:00:00 Test Item Value Reference Range Interpretation Comments TSH, THIRD GENERATION (test code 1.540 UIU/ML = 2821) [id number] 00:00:00 Test Item Value Reference Range Interpretation Comments TSH, THIRD GENERATION (test code 1.540 UIU/ML = 2821) VITAMIN D, 25 [id number] 00:00:00 Test Item Value Reference Range Interpretation Comments VITAMIN D, 25 OH (test code = 4958) 20 NG/ML VITAMIN D, 25 [id number] 00:00:00 Test Item Value Reference Range Interpretation Comments VITAMIN D, 25 OH (test code = 4958) 20 NG/ML CBC W/AUTO [id number] 00:00:00 Test Item Value Reference Range Interpretation [...] NUCLEATED RBCS (test code = 0.00 K/UL 77956) SCR MAMM BILATERAL SARAH CAD [id number] 10:14:45 - SCR MAMM BILATERAL SARAH CAD DIGITALBILATERAL DIGITAL SCREENING MAMMOGRAM 3D/2D WITH CAD: 06/28/2020C LINICAL: Asymptomatic. Digital breast tomosynthesis was performed in addition to routine CC and MLO views. Current mammographic images were evaluated by either a [employer] M-Vu or a [employer] ImageChecker CAD (computer aided detection system). Comparison is made to exams dated 12/20/2018 mammogram - [facility] and 02/02/2012 mammogram - [facility]. The tissue of both breasts is heterogeneously dense. This may lower the sensitivity of mammography. No suspicious mass, architectural distortion, malignant type calcification, or lymph node abnormality detected. Breast architecture is stable compared to prior exams.IMPRESSION: NEGATIVEThere is no mammographic evidence of malignancy. Resume annual screening mammography in one year. Antione altman/penrad:07/05/2020 10:14:45 Entry: cl - 07/05/2020 10:14:45Imaging Technologist: Zunilda Armstrong MM, [facility] ammographyletter sent: BIRADS 1-2 Normal Mammogram BI-RADS: 1 [id number] (COVID-19) by RT-PCR (HIGH RISK)2020-06-05 00:00:00 Test Item Value Reference Range Interpretation Comments SARS-CoV-2 INTERPRETATION (test NEGATIVE code = 67862) SOURCE (test code = 44778) NOT SPECIFIED SARS-CoV-2 (COVID-19) by RT-PCR (HIGH RISK)2020-06-05 00:00:00 Test Item Value Reference Range Interpretation Comments SARS-CoV-2 INTERPRETATION (test NEGATIVE code = 92988) SOURCE (test code = 02668) NOT SPECIFIED SARS-CoV-2 (COVID-19) by RT-PCR (HIGH RISK)2020-06-05 00:00:00 Test Item Value Reference Range Interpretation Comments SARS-CoV-2 INTERPRETATION (test NEGATIVE code = 14236) SOURCE (test code = 84660) NOT SPECIFIED SARS-CoV-2 (COVID-19) by RT-PCR (HIGH RISK)2020-06-05 00:00:00 Test Item Value Reference Range Interpretation Comments SARS-CoV-2 INTERPRETATION (test NEGATIVE code = 07191) SOURCE (test code = 34786) NOT SPECIFIED SARS-CoV-2 (COVID-19) by RT-PCR (HIGH RISK)2020-06-05 00:00:00 Test Item Value Reference Range Interpretation Comments SARS-CoV-2 INTERPRETATION (test NEGATIVE code = 91208) SOURCE (test code = 05223) NOT SPECIFIED SARS-CoV-2 (COVID-19) by RT-PCR (HIGH RISK)2020-06-05 00:00:00 Test Item Value Reference Range Interpretation Comments SARS-CoV-2 INTERPRETATION (test NEGATIVE code = 98571) SOURCE (test code = 75049) NOT SPECIFIED SARS-CoV-2 (COVID-19) by RT-PCR (HIGH RISK)2020-06-05 00:00:00 Test Item Value Reference Range Interpretation Comments SARS-CoV-2 INTERPRETATION (test NEGATIVE code = 39222) SOURCE (test code = 01278) NOT SPECIFIED SARS-CoV-2 (COVID-19) by RT-PCR (HIGH RISK)2020-06-05 00:00:00 Test Item Value Reference Range Interpretation Comments SARS-CoV-2 INTERPRETATION (test NEGATIVE code = 51908) SOURCE (test code = 61416) NOT SPECIFIED SARS-CoV-2 (COVID-19) by RT-PCR (HIGH RISK)2020-06-05 00:00:00 Test Item Value Reference Range Interpretation Comments SARS-CoV-2 INTERPRETATION (test NEGATIVE code = 58246) SOURCE (test code = 77694) NOT SPECIFIED SARS-CoV-2 (COVID-19) by RT-PCR (HIGH RISK)2020-06-05 00:00:00 Test Item Value Reference Range Interpretation Comments SARS-CoV-2 INTERPRETATION (test NEGATIVE code = 77198) SOURCE (test code = 80149) NOT SPECIFIED SARS-CoV-2 (COVID-19) by RT-PCR (HIGH RISK)2020-06-05 00:00:00 Test Item Value Reference Range Interpretation Comments SARS-CoV-2 INTERPRETATION (test NEGATIVE code = 09716) SOURCE (test code = 37995) NOT SPECIFIED HCV RNA, PCR [id number] 00:00:00 Test Item Value Reference Range Interpretation Comments HCV RNA, PCR QUANT Not Detected IU/mL (test code = 4571) HCV VIRAL LOG (test Not Detected logIU/mL code = 13856) HCV RNA, PCR [id number] 00:00:00 Test Item Value Reference Range Interpretation Comments HCV RNA, PCR QUANT Not Detected IU/mL (test code = 4571) HCV VIRAL LOG (test Not Detected logIU/mL code = 68338) HCV RNA, PCR [id number] 00:00:00 Test Item Value Reference Range Interpretation Comments HCV RNA, PCR QUANT Not Detected IU/mL (test code = 4571) HCV VIRAL LOG (test Not Detected logIU/mL code = 96782) HCV RNA, PCR [id number] 00:00:00 Test Item Value Reference Range Interpretation Comments HCV RNA, PCR QUANT Not Detected IU/mL (test code = 4571) HCV VIRAL LOG (test Not Detected logIU/mL code = 40890) HCV RNA, PCR [id number] 00:00:00 Test Item Value Reference Range Interpretation Comments HCV RNA, PCR QUANT Not Detected IU/mL (test code = 4571) HCV VIRAL LOG (test Not Detected logIU/mL code = 28663) HCV RNA, PCR [id number] 00:00:00 Test Item Value Reference Range Interpretation Comments HCV RNA, PCR QUANT Not Detected IU/mL (test code = 4571) HCV VIRAL LOG (test Not Detected logIU/mL code = 51317) HCV RNA, PCR [id number] 00:00:00 Test Item Value Reference Range Interpretation Comments HCV RNA, PCR QUANT Not Detected IU/mL (test code = 4571) HCV VIRAL LOG (test Not Detected logIU/mL code = 08562) HCV RNA, PCR [id number] 00:00:00 Test Item Value Reference Range Interpretation Comments HCV RNA, PCR QUANT Not Detected IU/mL (test code = 4571) HCV VIRAL LOG (test Not Detected logIU/mL code = 88260) HCV RNA, PCR [id number] 00:00:00 Test Item Value Reference Range Interpretation Comments HCV RNA, PCR QUANT Not Detected IU/mL (test code = 4571) HCV VIRAL LOG (test Not Detected logIU/mL code = 05404) HCV RNA, PCR [id number] 00:00:00 Test Item Value Reference Range Interpretation Comments HCV RNA, PCR QUANT Not Detected IU/mL (test code = 4571) HCV VIRAL LOG (test Not Detected logIU/mL code = 86791) HCV RNA, PCR [id number] 00:00:00 Test Item Value Reference Range Interpretation Comments HCV RNA, PCR QUANT Not Detected IU/mL (test code = 4571) HCV VIRAL LOG (test Not Detected logIU/mL code = 42488) HCV RNA, PCR [id number] 00:00:00 Test Item Value Reference Range Interpretation Comments HCV RNA, PCR QUANT Not Detected IU/mL (test code = 4571) HCV VIRAL LOG (test Not Detected logIU/mL code = 15246) HCV RNA, PCR [id number] 00:00:00 Test Item Value Reference Range Interpretation Comments HCV RNA, PCR QUANT Not Detected IU/mL (test code = 4571) HCV VIRAL LOG (test Not Detected logIU/mL code = 63845) HCV RNA, PCR [id number] 00:00:00 Test Item Value Reference Range Interpretation Comments HCV RNA, PCR QUANT Not Detected IU/mL (test code = 4571) HCV VIRAL LOG (test Not Detected logIU/mL code = 09409) HCV RNA, PCR [id number] 00:00:00 Test Item Value Reference Range Interpretation Comments HCV RNA, PCR QUANT Not Detected IU/mL (test code = 4571) HCV VIRAL LOG (test Not Detected logIU/mL code = 40868) HCV RNA, PCR [id number] 00:00:00 Test Item Value Reference Range Interpretation Comments HCV RNA, PCR QUANT Not Detected IU/mL (test code = 4571) HCV VIRAL LOG (test Not Detected logIU/mL code = 38253) HCV RNA, PCR [id number] 00:00:00 Test Item Value Reference Range Interpretation Comments HCV RNA, PCR QUANT Not Detected IU/mL (test code = 4571) HCV VIRAL LOG (test Not Detected logIU/mL code = 34193) LIVER (HEPATIC) FUNCTION [id number] 00:00:00 Test Item Value Reference Range Interpretation [...] = 2219) 12 U/L LIVER (HEPATIC) FUNCTION [id number] 00:00:00 Test Item Value Reference Range Interpretation [...] = 2219) 12 U/L LIVER (HEPATIC) FUNCTION [id number] 00:00:00 Test Item Value Reference Range Interpretation [...] = 2219) 12 U/L LIVER (HEPATIC) FUNCTION [id number] 00:00:00 Test Item Value Reference Range Interpretation [...] = 2219) 12 U/L LIVER (HEPATIC) FUNCTION [id number] 00:00:00 Test Item Value Reference Range Interpretation [...] = 2219) 12 U/L LIVER (HEPATIC) FUNCTION [id number] 00:00:00 Test Item Value Reference Range Interpretation [...] = 2219) 12 U/L LIVER (HEPATIC) FUNCTION [id number] 00:00:00 Test Item Value Reference Range Interpretation [...] = 2219) 12 U/L LIVER (HEPATIC) FUNCTION [id number] 00:00:00 Test Item Value Reference Range Interpretation [...] = 2219) 12 U/L LIVER (HEPATIC) FUNCTION [id number] 00:00:00 Test Item Value Reference Range Interpretation [...] = 2219) 12 U/L LIVER (HEPATIC) FUNCTION [id number] 00:00:00 Test Item Value Reference Range Interpretation [...] = 2219) 12 U/L LIVER (HEPATIC) FUNCTION [id number] 00:00:00 Test Item Value Reference Range Interpretation [...] = 2219) 12 U/L HCV RNA, PCR [id number] 00:00:00 Test Item Value Reference Range Interpretation Comments HCV RNA, PCR QUANT (test NOT DETEC IU/ML code = 4571) HCV VIRAL LOG (test code = NOT DETEC LOGIU/ML 37126) HCV RNA, PCR [id number] 00:00:00 Test Item Value Reference Range Interpretation Comments HCV RNA, PCR QUANT (test NOT DETEC IU/ML code = 4571) HCV VIRAL LOG (test code = NOT DETEC LOGIU/ML 13062) HCV RNA, PCR [id number] 00:00:00 Test Item Value Reference Range Interpretation Comments HCV RNA, PCR QUANT (test NOT DETEC IU/ML code = 4571) HCV VIRAL LOG (test code = NOT DETEC LOGIU/ML 62718) HCV RNA, PCR [id number] 00:00:00 Test Item Value Reference Range Interpretation Comments HCV RNA, PCR QUANT (test NOT DETEC IU/ML code = 4571) HCV VIRAL LOG (test code = NOT DETEC LOGIU/ML 40487) HCV RNA, PCR [id number] 00:00:00 Test Item Value Reference Range Interpretation Comments HCV RNA, PCR QUANT (test NOT DETEC IU/ML code = 4571) HCV VIRAL LOG (test code = NOT DETEC LOGIU/ML 72817) HCV RNA, PCR [id number] 00:00:00 Test Item Value Reference Range Interpretation Comments HCV RNA, PCR QUANT (test NOT DETEC IU/ML code = 4571) HCV VIRAL LOG (test code = NOT DETEC LOGIU/ML 93214) HCV RNA, PCR [id number] 00:00:00 Test Item Value Reference Range Interpretation Comments HCV RNA, PCR QUANT (test NOT DETEC IU/ML code = 4571) HCV VIRAL LOG (test code = NOT DETEC LOGIU/ML 71762) HCV RNA, PCR [id number] 00:00:00 Test Item Value Reference Range Interpretation Comments HCV RNA, PCR QUANT (test NOT DETEC IU/ML code = 4571) HCV VIRAL LOG (test code = NOT DETEC LOGIU/ML 30186) HCV RNA, PCR [id number] 00:00:00 Test Item Value Reference Range Interpretation Comments HCV RNA, PCR QUANT (test NOT DETEC IU/ML code = 4571) HCV VIRAL LOG (test code = NOT DETEC LOGIU/ML 40032) HCV RNA, PCR [id number] 00:00:00 Test Item Value Reference Range Interpretation Comments HCV RNA, PCR QUANT (test NOT DETEC IU/ML code = 4571) HCV VIRAL LOG (test code = NOT DETEC LOGIU/ML 84510) HCV RNA, PCR [id number] 00:00:00 Test Item Value Reference Range Interpretation Comments HCV RNA, PCR QUANT (test NOT DETEC IU/ML code = 4571) HCV VIRAL LOG (test code = NOT DETEC LOGIU/ML 54396) HCV RNA, PCR [id number] 00:00:00 Test Item Value Reference Range Interpretation Comments HCV RNA, PCR QUANT (test NOT DETEC IU/ML code = 4571) HCV VIRAL LOG (test code = NOT DETEC LOGIU/ML 31011) HCV RNA, PCR [id number] 00:00:00 Test Item Value Reference Range Interpretation Comments HCV RNA, PCR QUANT (test NOT DETEC IU/ML code = 4571) HCV VIRAL LOG (test code = NOT DETEC LOGIU/ML 29173) HCV RNA, PCR [id number] 00:00:00 Test Item Value Reference Range Interpretation Comments HCV RNA, PCR QUANT (test NOT DETEC IU/ML code = 4571) HCV VIRAL LOG (test code = NOT DETEC LOGIU/ML 83765) HCV RNA, PCR [id number] 00:00:00 Test Item Value Reference Range Interpretation Comments HCV RNA, PCR QUANT (test NOT DETEC IU/ML code = 4571) HCV VIRAL LOG (test code = NOT DETEC LOGIU/ML 17610) HCV RNA, PCR [id number] 00:00:00 Test Item Value Reference Range Interpretation Comments HCV RNA, PCR QUANT (test NOT DETEC IU/ML code = 4571) HCV VIRAL LOG (test code = NOT DETEC LOGIU/ML 15202) HCV RNA, PCR [id number] 00:00:00 Test Item Value Reference Range Interpretation Comments HCV RNA, PCR QUANT (test NOT DETEC IU/ML code = 4571) HCV VIRAL LOG (test code = NOT DETEC LOGIU/ML 10802) LIVER (HEPATIC) FUNCTION [id number] 00:00:00 Test Item Value Reference Range Interpretation [...] = 2219) 7 U/L LIVER (HEPATIC) FUNCTION [id number] 00:00:00 Test Item Value Reference Range Interpretation [...] = 2219) 7 U/L LIVER (HEPATIC) FUNCTION [id number] 00:00:00 Test Item Value Reference Range Interpretation [...] = 2219) 7 U/L LIVER (HEPATIC) FUNCTION [id number] 00:00:00 Test Item Value Reference Range Interpretation [...] = 2219) 7 U/L LIVER (HEPATIC) FUNCTION [id number] 00:00:00 Test Item Value Reference Range Interpretation [...] = 2219) 7 U/L LIVER (HEPATIC) FUNCTION [id number] 00:00:00 Test Item Value Reference Range Interpretation [...] = 2219) 7 U/L LIVER (HEPATIC) FUNCTION [id number] 00:00:00 Test Item Value Reference Range Interpretation [...] = 2219) 7 U/L LIVER (HEPATIC) FUNCTION [id number] 00:00:00 Test Item Value Reference Range Interpretation [...] = 2219) 7 U/L LIVER (HEPATIC) FUNCTION [id number] 00:00:00 Test Item Value Reference Range Interpretation [...] = 2219) 7 U/L LIVER (HEPATIC) FUNCTION [id number] 00:00:00 Test Item Value Reference Range Interpretation [...] = 2219) 7 U/L LIVER (HEPATIC) FUNCTION [id number] 00:00:00 Test Item Value Reference Range Interpretation Comments PROTEIN, TOTAL (test code = 2229) 7.1 G/DL ALBUMIN (test code = 2201) 4.3 G/DL BILIRUBIN, TOTAL (test code = 2207) 0.3 MG/DL BILIRUBIN, DIRECT (test code = 0.1 MG/DL 2021) ALKALINE PHOSPHATASE (test code = 148 U/L 2203) AST (test code = 2218) 15 U/L ALT (test code = 2219) 7 U/L HEPATITIS C [id number] 00:00:00 Test Item Value Reference Range Interpretation Comments HEPATITIS C GENOTYPE (test code = 1a 79265) HEPATITIS C [id number] 00:00:00 Test Item Value Reference Range Interpretation Comments HEPATITIS C GENOTYPE (test code = 1a 80502) HEPATITIS C [id number] 00:00:00 Test Item Value Reference Range Interpretation Comments HEPATITIS C GENOTYPE (test code = 1a 61044) HEPATITIS C [id number] 00:00:00 Test Item Value Reference Range Interpretation Comments HEPATITIS C GENOTYPE (test code = 1a 80238) HEPATITIS C [id number] 00:00:00 Test Item Value Reference Range Interpretation Comments HEPATITIS C GENOTYPE (test code = 1a 79038) HEPATITIS C [id number] 00:00:00 Test Item Value Reference Range Interpretation Comments HEPATITIS C GENOTYPE (test code = 1a 01193) HEPATITIS C [id number] 00:00:00 Test Item Value Reference Range Interpretation Comments HEPATITIS C GENOTYPE (test code = 1a 56847) HEPATITIS C [id number] 00:00:00 Test Item Value Reference Range Interpretation Comments HEPATITIS C GENOTYPE (test code = 1a 11334) HEPATITIS C [id number] 00:00:00 Test Item Value Reference Range Interpretation Comments HEPATITIS C GENOTYPE (test code = 1a 58583) HEPATITIS C [id number] 00:00:00 Test Item Value Reference Range Interpretation Comments HEPATITIS C GENOTYPE (test code = 1a 69476) HEPATITIS C [id number] 00:00:00 Test Item Value Reference Range Interpretation Comments HEPATITIS C GENOTYPE (test code = 1a 38798) HEPATITIS Bs AB [id number] 00:00:00 Test Item Value Reference Range Interpretation Comments HEPATITIS Bs AB QUANT (test code 0.05 MIU/ML = 2738) HEPATITIS Bs AB [id number] 00:00:00 Test Item Value Reference Range Interpretation Comments HEPATITIS Bs AB QUANT (test code 0.05 MIU/ML = 2738) MITOCHONDRIAL M2 [id number] 00:00:00 Test Item Value Reference Range Interpretation Comments MITOCHONDRIAL M2 AB (test code = 30.9 UNITS 4634) ALKALINE PHOSPHATASE [id number] 00:00:00 Test Item Value Reference Range Interpretation Comments ALKALINE PHOSPHATASE (test code = 196 U/L 60169) ALK PHOS, LIVER 1% (test code = 37.3 % 10159) ALK PHOS, LIVER 1 ABS (test code = 73.1 U/L 28279) ALK PHOS, LIVER 2% (test code = 4.5 % 38042) ALK PHOS, LIVER 2 ABS (test code = 8.8 U/L 06078) ALK PHOS, BONE % (test code = 49229) 44.0 % ALK PHOS, BONE ABS (test code = 86.2 U/L 50783) ALK PHOS, INTESTINE % (test code = 14.2 % 06844) ALK PHOS, INTESTINE ABS (test code = 27.8 U/L 763438) ALK PHOS, PLACENTAL % (test code = 0.0 % 000658) ALK PHOS, PLACENTAL ABS (test code = 0.0 U/L 730019) ALKALINE PHOSPHATASE [id number] 00:00:00 Test Item Value Reference Range Interpretation Comments ALKALINE PHOSPHATASE (test code = 196 U/L 06724) ALK PHOS, LIVER 1% (test code = 37.3 % 24922) ALK PHOS, LIVER 1 ABS (test code = 73.1 U/L 22725) ALK PHOS, LIVER 2% (test code = 4.5 % 09517) ALK PHOS, LIVER 2 ABS (test code = 8.8 U/L 57306) ALK PHOS, BONE % (test code = 69133) 44.0 % ALK PHOS, BONE ABS (test code = 86.2 U/L 74585) ALK PHOS, INTESTINE % (test code = 14.2 % 45012) ALK PHOS, INTESTINE ABS (test code = 27.8 U/L 554906) ALK PHOS, PLACENTAL % (test code = 0.0 % 215007) ALK PHOS, PLACENTAL ABS (test code = 0.0 U/L 388038) HIV AB/AG COMBO RFLX [id number] 00:00:00 Test Item Value Reference Range Interpretation Comments HIV 1/2 4TH GEN, RFLX CONF (test NON-REACTIVE code = 3514) HEP B CORE TOTAL [id number] 00:00:00 Test Item Value Reference Range Interpretation Comments HEP B CORE TOTAL AB (test code = NON-REACTIVE 2729) HEP B CORE TOTAL [id number] 00:00:00 Test Item Value Reference Range Interpretation Comments HEP B CORE TOTAL AB (test code = NON-REACTIVE 2729) HEP B CORE TOTAL [id number] 00:00:00 Test Item Value Reference Range Interpretation Comments HEP B CORE TOTAL AB (test code = NON-REACTIVE 2729) HEPATITIS Bs AB [id number] 00:00:00 Test Item Value Reference Range Interpretation Comments HEPATITIS Bs AB QUANT (test code 0.05 MIU/ML = 2738) HEPATITIS Bs AB [id number] 00:00:00 Test Item Value Reference Range Interpretation Comments HEPATITIS Bs AB QUANT (test code 0.05 MIU/ML = 2738) HEPATITIS Bs AB [id number] 00:00:00 Test Item Value Reference Range Interpretation Comments HEPATITIS Bs AB QUANT (test code 0.05 MIU/ML = 2738) MITOCHONDRIAL M2 [id number] 00:00:00 Test Item Value Reference Range Interpretation Comments MITOCHONDRIAL M2 AB (test code = 30.9 UNITS 4634) MITOCHONDRIAL M2 [id number] 00:00:00 Test Item Value Reference Range Interpretation Comments MITOCHONDRIAL M2 AB (test code = 30.9 UNITS 4634) ALKALINE PHOSPHATASE [id number] 00:00:00 Test Item Value Reference Range Interpretation Comments ALKALINE PHOSPHATASE (test code = 196 U/L 65118) ALK PHOS, LIVER 1% (test code = 37.3 % 32331) ALK PHOS, LIVER 1 ABS (test code = 73.1 U/L 37118) ALK PHOS, LIVER 2% (test code = 4.5 % 16177) ALK PHOS, LIVER 2 ABS (test code = 8.8 U/L 66363) ALK PHOS, BONE % (test code = 28773) 44.0 % ALK PHOS, BONE ABS (test code = 86.2 U/L 54738) ALK PHOS, INTESTINE % (test code = 14.2 % 44866) ALK PHOS, INTESTINE ABS (test code = 27.8 U/L 148208) ALK PHOS, PLACENTAL % (test code = 0.0 % 436937) ALK PHOS, PLACENTAL ABS (test code = 0.0 U/L 530891) ALKALINE PHOSPHATASE [id number] 00:00:00 Test Item Value Reference Range Interpretation Comments ALKALINE PHOSPHATASE (test code = 196 U/L 94045) ALK PHOS, LIVER 1% (test code = 37.3 % 68447) ALK PHOS, LIVER 1 ABS (test code = 73.1 U/L 76738) ALK PHOS, LIVER 2% (test code = 4.5 % 69668) ALK PHOS, LIVER 2 ABS (test code = 8.8 U/L 51105) ALK PHOS, BONE % (test code = 16960) 44.0 % ALK PHOS, BONE ABS (test code = 86.2 U/L 02868) ALK PHOS, INTESTINE % (test code = 14.2 % 06167) ALK PHOS, INTESTINE ABS (test code = 27.8 U/L 544108) ALK PHOS, PLACENTAL % (test code = 0.0 % 915838) ALK PHOS, PLACENTAL ABS (test code = 0.0 U/L 830858) ALKALINE PHOSPHATASE [id number] 00:00:00 Test Item Value Reference Range Interpretation Comments ALKALINE PHOSPHATASE (test code = 196 U/L 15667) ALK PHOS, LIVER 1% (test code = 37.3 % 86278) ALK PHOS, LIVER 1 ABS (test code = 73.1 U/L 53263) ALK PHOS, LIVER 2% (test code = 4.5 % 06257) ALK PHOS, LIVER 2 ABS (test code = 8.8 U/L 51188) ALK PHOS, BONE % (test code = 17954) 44.0 % ALK PHOS, BONE ABS (test code = 86.2 U/L 14326) ALK PHOS, INTESTINE % (test code = 14.2 % 53994) ALK PHOS, INTESTINE ABS (test code = 27.8 U/L 987529) ALK PHOS, PLACENTAL % (test code = 0.0 % 141374) ALK PHOS, PLACENTAL ABS (test code = 0.0 U/L 270603) HIV AB/AG COMBO RFLX [id number] 00:00:00 Test Item Value Reference Range Interpretation Comments HIV 1/2 4TH GEN, RFLX CONF (test NON-REACTIVE code = 3514) HIV AB/AG COMBO RFLX [id number] 00:00:00 Test Item Value Reference Range Interpretation Comments HIV 1/2 4TH GEN, RFLX CONF (test NON-REACTIVE code = 3514) HEP B CORE TOTAL [id number] 00:00:00 Test Item Value Reference Range Interpretation Comments HEP B CORE TOTAL AB (test code = NON-REACTIVE 2729) HEP B CORE TOTAL [id number] 00:00:00 Test Item Value Reference Range Interpretation Comments HEP B CORE TOTAL AB (test code = NON-REACTIVE 9) HEP B CORE TOTAL [id number] 00:00:00 Test Item Value Reference Range Interpretation Comments HEP B CORE TOTAL AB (test code = NON-REACTIVE 2729) HEPATITIS Bs AB [id number] 00:00:00 Test Item Value Reference Range Interpretation Comments HEPATITIS Bs AB QUANT (test code 0.05 MIU/ML = 2738) HEPATITIS Bs AB [id number] 00:00:00 Test Item Value Reference Range Interpretation Comments HEPATITIS Bs AB QUANT (test code 0.05 MIU/ML = 2738) HEPATITIS Bs AB [id number] 00:00:00 Test Item Value Reference Range Interpretation Comments HEPATITIS Bs AB QUANT (test code 0.05 MIU/ML = 2738) MITOCHONDRIAL M2 [id number] 00:00:00 Test Item Value Reference Range Interpretation Comments MITOCHONDRIAL M2 AB (test code = 30.9 UNITS 4634) MITOCHONDRIAL M2 [id number] 00:00:00 Test Item Value Reference Range Interpretation Comments MITOCHONDRIAL M2 AB (test code = 30.9 UNITS 4634) ALKALINE PHOSPHATASE [id number] 00:00:00 Test Item Value Reference Range Interpretation Comments ALKALINE PHOSPHATASE (test code = 196 U/L 13247) ALK PHOS, LIVER 1% (test code = 37.3 % 19976) ALK PHOS, LIVER 1 ABS (test code = 73.1 U/L 85976) ALK PHOS, LIVER 2% (test code = 4.5 % 94206) ALK PHOS, LIVER 2 ABS (test code = 8.8 U/L 27962) ALK PHOS, BONE % (test code = 42823) 44.0 % ALK PHOS, BONE ABS (test code = 86.2 U/L 16962) ALK PHOS, INTESTINE % (test code = 14.2 % 28577) ALK PHOS, INTESTINE ABS (test code = 27.8 U/L 227597) ALK PHOS, PLACENTAL % (test code = 0.0 % 912841) ALK PHOS, PLACENTAL ABS (test code = 0.0 U/L 148214) ALKALINE PHOSPHATASE [id number] 00:00:00 Test Item Value Reference Range Interpretation Comments ALKALINE PHOSPHATASE (test code = 196 U/L 52126) ALK PHOS, LIVER 1% (test code = 37.3 % 98003) ALK PHOS, LIVER 1 ABS (test code = 73.1 U/L 66656) ALK PHOS, LIVER 2% (test code = 4.5 % 21570) ALK PHOS, LIVER 2 ABS (test code = 8.8 U/L 08148) ALK PHOS, BONE % (test code = 17236) 44.0 % ALK PHOS, BONE ABS (test code = 86.2 U/L 54435) ALK PHOS, INTESTINE % (test code = 14.2 % 80025) ALK PHOS, INTESTINE ABS (test code = 27.8 U/L 706303) ALK PHOS, PLACENTAL % (test code = 0.0 % 348949) ALK PHOS, PLACENTAL ABS (test code = 0.0 U/L 217625) ALKALINE PHOSPHATASE [id number] 00:00:00 Test Item Value Reference Range Interpretation Comments ALKALINE PHOSPHATASE (test code = 196 U/L 37832) ALK PHOS, LIVER 1% (test code = 37.3 % 72695) ALK PHOS, LIVER 1 ABS (test code = 73.1 U/L 16634) ALK PHOS, LIVER 2% (test code = 4.5 % 35496) ALK PHOS, LIVER 2 ABS (test code = 8.8 U/L 26946) ALK PHOS, BONE % (test code = 51794) 44.0 % ALK PHOS, BONE ABS (test code = 86.2 U/L 78739) ALK PHOS, INTESTINE % (test code = 14.2 % 44563) ALK PHOS, INTESTINE ABS (test code = 27.8 U/L 461483) ALK PHOS, PLACENTAL % (test code = 0.0 % 641483) ALK PHOS, PLACENTAL ABS (test code = 0.0 U/L 675243) HIV AB/AG COMBO RFLX [id number] 00:00:00 Test Item Value Reference Range Interpretation Comments HIV 1/2 4TH GEN, RFLX CONF (test NON-REACTIVE code = 3514) HIV AB/AG COMBO RFLX [id number] 00:00:00 Test Item Value Reference Range Interpretation Comments HIV 1/2 4TH GEN, RFLX CONF (test NON-REACTIVE code = 3514) HEP B CORE TOTAL [id number] 00:00:00 Test Item Value Reference Range Interpretation Comments HEP B CORE TOTAL AB (test code = NON-REACTIVE 816) HEP B CORE TOTAL [id number] 00:00:00 Test Item Value Reference Range Interpretation Comments HEP B CORE TOTAL AB (test code = NON-REACTIVE 2728) HEP B CORE TOTAL [id number] 00:00:00 Test Item Value Reference Range Interpretation Comments HEP B CORE TOTAL AB (test code = NON-REACTIVE 2729) HEPATITIS Bs AB [id number] 00:00:00 Test Item Value Reference Range Interpretation Comments HEPATITIS Bs AB QUANT (test code 0.05 MIU/ML = 2738) HEPATITIS Bs AB [id number] 00:00:00 Test Item Value Reference Range Interpretation Comments HEPATITIS Bs AB QUANT (test code 0.05 MIU/ML = 2738) HEPATITIS Bs AB [id number] 00:00:00 Test Item Value Reference Range Interpretation Comments HEPATITIS Bs AB QUANT (test code 0.05 MIU/ML = 2738) MITOCHONDRIAL M2 [id number] 00:00:00 Test Item Value Reference Range Interpretation Comments MITOCHONDRIAL M2 AB (test code = 30.9 UNITS 4634) MITOCHONDRIAL M2 [id number] 00:00:00 Test Item Value Reference Range Interpretation Comments MITOCHONDRIAL M2 AB (test code = 30.9 UNITS 4634) ALKALINE PHOSPHATASE [id number] 00:00:00 Test Item Value Reference Range Interpretation Comments ALKALINE PHOSPHATASE (test code = 196 U/L 29498) ALK PHOS, LIVER 1% (test code = 37.3 % 10620) ALK PHOS, LIVER 1 ABS (test code = 73.1 U/L 56053) ALK PHOS, LIVER 2% (test code = 4.5 % 66508) ALK PHOS, LIVER 2 ABS (test code = 8.8 U/L 57499) ALK PHOS, BONE % (test code = 63266) 44.0 % ALK PHOS, BONE ABS (test code = 86.2 U/L 39845) ALK PHOS, INTESTINE % (test code = 14.2 % 13328) ALK PHOS, INTESTINE ABS (test code = 27.8 U/L 463567) ALK PHOS, PLACENTAL % (test code = 0.0 % 512877) ALK PHOS, PLACENTAL ABS (test code = 0.0 U/L 947205) ALKALINE PHOSPHATASE [id number] 00:00:00 Test Item Value Reference Range Interpretation Comments ALKALINE PHOSPHATASE (test code = 196 U/L 45623) ALK PHOS, LIVER 1% (test code = 37.3 % 40473) ALK PHOS, LIVER 1 ABS (test code = 73.1 U/L 23652) ALK PHOS, LIVER 2% (test code = 4.5 % 01357) ALK PHOS, LIVER 2 ABS (test code = 8.8 U/L 78088) ALK PHOS, BONE % (test code = 87723) 44.0 % ALK PHOS, BONE ABS (test code = 86.2 U/L 83435) ALK PHOS, INTESTINE % (test code = 14.2 % 92960) ALK PHOS, INTESTINE ABS (test code = 27.8 U/L 838336) ALK PHOS, PLACENTAL % (test code = 0.0 % 582445) ALK PHOS, PLACENTAL ABS (test code = 0.0 U/L 352357) ALKALINE PHOSPHATASE [id number] 00:00:00 Test Item Value Reference Range Interpretation Comments ALKALINE PHOSPHATASE (test code = 196 U/L 28535) ALK PHOS, LIVER 1% (test code = 37.3 % 86959) ALK PHOS, LIVER 1 ABS (test code = 73.1 U/L 27727) ALK PHOS, LIVER 2% (test code = 4.5 % 88266) ALK PHOS, LIVER 2 ABS (test code = 8.8 U/L 82626) ALK PHOS, BONE % (test code = 02546) 44.0 % ALK PHOS, BONE ABS (test code = 86.2 U/L 54868) ALK PHOS, INTESTINE % (test code = 14.2 % 97550) ALK PHOS, INTESTINE ABS (test code = 27.8 U/L 604396) ALK PHOS, PLACENTAL % (test code = 0.0 % 619318) ALK PHOS, PLACENTAL ABS (test code = 0.0 U/L 999854) HIV AB/AG COMBO RFLX [id number] 00:00:00 Test Item Value Reference Range Interpretation Comments HIV 1/2 4TH GEN, RFLX CONF (test NON-REACTIVE code = 3514) HIV AB/AG COMBO RFLX [id number] 00:00:00 Test Item Value Reference Range Interpretation Comments HIV 1/2 4TH GEN, RFLX CONF (test NON-REACTIVE code = 3514) HEP B CORE TOTAL [id number] 00:00:00 Test Item Value Reference Range Interpretation Comments HEP B CORE TOTAL AB (test code = NON-REACTIVE 2729) HEP B CORE TOTAL [id number] 00:00:00 Test Item Value Reference Range Interpretation Comments HEP B CORE TOTAL AB (test code = NON-REACTIVE 9) HEP B CORE TOTAL [id number] 00:00:00 Test Item Value Reference Range Interpretation Comments HEP B CORE TOTAL AB (test code = NON-REACTIVE 9) HEPATITIS Bs AB [id number] 00:00:00 Test Item Value Reference Range Interpretation Comments HEPATITIS Bs AB QUANT (test code 0.05 MIU/ML = 2738) HEPATITIS Bs AB [id number] 00:00:00 Test Item Value Reference Range Interpretation Comments HEPATITIS Bs AB QUANT (test code 0.05 MIU/ML = 2738) HEPATITIS Bs AB [id number] 00:00:00 Test Item Value Reference Range Interpretation Comments HEPATITIS Bs AB QUANT (test code 0.05 MIU/ML = 2738) MITOCHONDRIAL M2 [id number] 00:00:00 Test Item Value Reference Range Interpretation Comments MITOCHONDRIAL M2 AB (test code = 30.9 UNITS 4634) MITOCHONDRIAL M2 [id number] 00:00:00 Test Item Value Reference Range Interpretation Comments MITOCHONDRIAL M2 AB (test code = 30.9 UNITS 4634) ALKALINE PHOSPHATASE [id number] 00:00:00 Test Item Value Reference Range Interpretation Comments ALKALINE PHOSPHATASE (test code = 196 U/L 74810) ALK PHOS, LIVER 1% (test code = 37.3 % 11796) ALK PHOS, LIVER 1 ABS (test code = 73.1 U/L 19433) ALK PHOS, LIVER 2% (test code = 4.5 % 02061) ALK PHOS, LIVER 2 ABS (test code = 8.8 U/L 17559) ALK PHOS, BONE % (test code = 87441) 44.0 % ALK PHOS, BONE ABS (test code = 86.2 U/L 69830) ALK PHOS, INTESTINE % (test code = 14.2 % 25075) ALK PHOS, INTESTINE ABS (test code = 27.8 U/L 579709) ALK PHOS, PLACENTAL % (test code = 0.0 % 816643) ALK PHOS, PLACENTAL ABS (test code = 0.0 U/L 780811) ALKALINE PHOSPHATASE [id number] 00:00:00 Test Item Value Reference Range Interpretation Comments ALKALINE PHOSPHATASE (test code = 196 U/L 96694) ALK PHOS, LIVER 1% (test code = 37.3 % 44448) ALK PHOS, LIVER 1 ABS (test code = 73.1 U/L 44517) ALK PHOS, LIVER 2% (test code = 4.5 % 22975) ALK PHOS, LIVER 2 ABS (test code = 8.8 U/L 33045) ALK PHOS, BONE % (test code = 91531) 44.0 % ALK PHOS, BONE ABS (test code = 86.2 U/L 06858) ALK PHOS, INTESTINE % (test code = 14.2 % 01327) ALK PHOS, INTESTINE ABS (test code = 27.8 U/L 277406) ALK PHOS, PLACENTAL % (test code = 0.0 % 400081) ALK PHOS, PLACENTAL ABS (test code = 0.0 U/L 291286) ALKALINE PHOSPHATASE [id number] 00:00:00 Test Item Value Reference Range Interpretation Comments ALKALINE PHOSPHATASE (test code = 196 U/L 78509) ALK PHOS, LIVER 1% (test code = 37.3 % 18941) ALK PHOS, LIVER 1 ABS (test code = 73.1 U/L 89005) ALK PHOS, LIVER 2% (test code = 4.5 % 58568) ALK PHOS, LIVER 2 ABS (test code = 8.8 U/L 86427) ALK PHOS, BONE % (test code = 15296) 44.0 % ALK PHOS, BONE ABS (test code = 86.2 U/L 15615) ALK PHOS, INTESTINE % (test code = 14.2 % 70769) ALK PHOS, INTESTINE ABS (test code = 27.8 U/L 939131) ALK PHOS, PLACENTAL % (test code = 0.0 % 006201) ALK PHOS, PLACENTAL ABS (test code = 0.0 U/L 136317) HIV AB/AG COMBO RFLX [id number] 00:00:00 Test Item Value Reference Range Interpretation Comments HIV 1/2 4TH GEN, RFLX CONF (test NON-REACTIVE code = 3514) HIV AB/AG COMBO RFLX [id number] 00:00:00 Test Item Value Reference Range Interpretation Comments HIV 1/2 4TH GEN, RFLX CONF (test NON-REACTIVE code = 3514) HEP B CORE TOTAL [id number] 00:00:00 Test Item Value Reference Range Interpretation Comments HEP B CORE TOTAL AB (test code = NON-REACTIVE 2729) HEP B CORE TOTAL [id number] 00:00:00 Test Item Value Reference Range Interpretation Comments HEP B CORE TOTAL AB (test code = NON-REACTIVE 2729) HEP B CORE TOTAL [id number] 00:00:00 Test Item Value Reference Range Interpretation Comments HEP B CORE TOTAL AB (test code = NON-REACTIVE 2729) HEPATITIS Bs AB [id number] 00:00:00 Test Item Value Reference Range Interpretation Comments HEPATITIS Bs AB QUANT (test code 0.05 MIU/ML = 2738) HEPATITIS Bs AB [id number] 00:00:00 Test Item Value Reference Range Interpretation Comments HEPATITIS Bs AB QUANT (test code 0.05 MIU/ML = 2738) HEPATITIS Bs AB [id number] 00:00:00 Test Item Value Reference Range Interpretation Comments HEPATITIS Bs AB QUANT (test code 0.05 MIU/ML = 2738) MITOCHONDRIAL M2 [id number] 00:00:00 Test Item Value Reference Range Interpretation Comments MITOCHONDRIAL M2 AB (test code = 30.9 UNITS 4634) MITOCHONDRIAL M2 [id number] 00:00:00 Test Item Value Reference Range Interpretation Comments MITOCHONDRIAL M2 AB (test code = 30.9 UNITS 4634) ALKALINE PHOSPHATASE [id number] 00:00:00 Test Item Value Reference Range Interpretation Comments ALKALINE PHOSPHATASE (test code = 196 U/L 41246) ALK PHOS, LIVER 1% (test code = 37.3 % 57346) ALK PHOS, LIVER 1 ABS (test code = 73.1 U/L 59771) ALK PHOS, LIVER 2% (test code = 4.5 % 25672) ALK PHOS, LIVER 2 ABS (test code = 8.8 U/L 99731) ALK PHOS, BONE % (test code = 92287) 44.0 % ALK PHOS, BONE ABS (test code = 86.2 U/L 13748) ALK PHOS, INTESTINE % (test code = 14.2 % 88210) ALK PHOS, INTESTINE ABS (test code = 27.8 U/L 227987) ALK PHOS, PLACENTAL % (test code = 0.0 % 434546) ALK PHOS, PLACENTAL ABS (test code = 0.0 U/L 167847) ALKALINE PHOSPHATASE [id number] 00:00:00 Test Item Value Reference Range Interpretation Comments ALKALINE PHOSPHATASE (test code = 196 U/L 40702) ALK PHOS, LIVER 1% (test code = 37.3 % 30750) ALK PHOS, LIVER 1 ABS (test code = 73.1 U/L 30994) ALK PHOS, LIVER 2% (test code = 4.5 % 68357) ALK PHOS, LIVER 2 ABS (test code = 8.8 U/L 00485) ALK PHOS, BONE % (test code = 53276) 44.0 % ALK PHOS, BONE ABS (test code = 86.2 U/L 82779) ALK PHOS, INTESTINE % (test code = 14.2 % 06220) ALK PHOS, INTESTINE ABS (test code = 27.8 U/L 653839) ALK PHOS, PLACENTAL % (test code = 0.0 % 786550) ALK PHOS, PLACENTAL ABS (test code = 0.0 U/L 797859) ALKALINE PHOSPHATASE [id number] 00:00:00 Test Item Value Reference Range Interpretation Comments ALKALINE PHOSPHATASE (test code = 196 U/L 31922) ALK PHOS, LIVER 1% (test code = 37.3 % 09925) ALK PHOS, LIVER 1 ABS (test code = 73.1 U/L 58058) ALK PHOS, LIVER 2% (test code = 4.5 % 25500) ALK PHOS, LIVER 2 ABS (test code = 8.8 U/L 31069) ALK PHOS, BONE % (test code = 87327) 44.0 % ALK PHOS, BONE ABS (test code = 86.2 U/L 02831) ALK PHOS, INTESTINE % (test code = 14.2 % 67014) ALK PHOS, INTESTINE ABS (test code = 27.8 U/L 257222) ALK PHOS, PLACENTAL % (test code = 0.0 % 996529) ALK PHOS, PLACENTAL ABS (test code = 0.0 U/L 502826) HIV AB/AG COMBO RFLX [id number] 00:00:00 Test Item Value Reference Range Interpretation Comments HIV 1/2 4TH GEN, RFLX CONF (test NON-REACTIVE code = 3514) HIV AB/AG COMBO RFLX [id number] 00:00:00 Test Item Value Reference Range Interpretation Comments HIV 1/2 4TH GEN, RFLX CONF (test NON-REACTIVE code = 3514) HEP B CORE TOTAL [id number] 00:00:00 Test Item Value Reference Range Interpretation Comments HEP B CORE TOTAL AB (test code = NON-REACTIVE 2729) HEP B CORE TOTAL [id number] 00:00:00 Test Item Value Reference Range Interpretation Comments HEP B CORE TOTAL AB (test code = NON-REACTIVE 2729) SCR MAMM BILATERAL CAD [id number] 15:50:34 - SCR MAMM BILATERAL CAD DIGITALBILATERAL DIGITAL SCREENING MAMMOGRAM 3D/2D WITH CAD: 12/20/2018CLINICAL: Asymptomatic. Digital breast tomosynthesis was performed in addition to routine CC and MLO views. Current mammographic images were evaluated by either a [employer] M-Vu or a [employer] ImageChecker CAD (computer aided detection system). Comparison is made to exam dated 02/02/2012 mammogram - [facility]. The tissue of both breasts is heterogeneously [...] dense breast tissue.Umang Valdez M.D. rb/:12/31/2018 15:50:34 Hat Binder: Larissa Sanon MM, [facility] Mammographyletter sent: BIRADS 1-2 Normal Mammogram BI-RADS: 1 NegativeHCV RNA, PCR QUANT [REFLEX]2018-12-11 00:00:00 Test Item Value Reference Range Interpretation Comments HCV RNA, PCR QUANT (test code 40650715 IU/ML = 4571) HCV VIRAL LOG (test code = 7.013 LOGIU/ML 88559) HCV RNA, PCR QUANT [REFLEX]2018-12-11 00:00:00 Test Item Value Reference Range Interpretation Comments HCV RNA, PCR QUANT (test code 04978468 IU/ML = 4571) HCV VIRAL LOG (test code = 7.013 LOGIU/ML 05738) HCV RNA, PCR QUANT [REFLEX]2018-12-11 00:00:00 Test Item Value Reference Range Interpretation Comments HCV RNA, PCR QUANT (test code 03898679 IU/ML = 4571) HCV VIRAL LOG (test code = 7.013 LOGIU/ML 66416) HCV RNA, PCR QUANT [REFLEX]2018-12-11 00:00:00 Test Item Value Reference Range Interpretation Comments HCV RNA, PCR QUANT (test code 48383994 IU/ML = 4571) HCV VIRAL LOG (test code = 7.013 LOGIU/ML 10488) HCV RNA, PCR QUANT [REFLEX]2018-12-11 00:00:00 Test Item Value Reference Range Interpretation Comments HCV RNA, PCR QUANT (test code 45430767 IU/ML = 4571) HCV VIRAL LOG (test code = 7.013 LOGIU/ML 24673) HCV RNA, PCR QUANT [REFLEX]2018-12-11 00:00:00 Test Item Value Reference Range Interpretation Comments HCV RNA, PCR QUANT (test code 24650306 IU/ML = 4571) HCV VIRAL LOG (test code = 7.013 LOGIU/ML 11242) HCV RNA, PCR QUANT [REFLEX]2018-12-11 00:00:00 Test Item Value Reference Range Interpretation Comments HCV RNA, PCR QUANT (test code 53528438 IU/ML = 4571) HCV VIRAL LOG (test code = 7.013 LOGIU/ML 19823) HCV RNA, PCR QUANT [REFLEX]2018-12-11 00:00:00 Test Item Value Reference Range Interpretation Comments HCV RNA, PCR QUANT (test code 24423578 IU/ML = 4571) HCV VIRAL LOG (test code = 7.013 LOGIU/ML 31650) HCV RNA, PCR QUANT [REFLEX]2018-12-11 00:00:00 Test Item Value Reference Range Interpretation Comments HCV RNA, PCR QUANT (test code 00851241 IU/ML = 4571) HCV VIRAL LOG (test code = 7.013 LOGIU/ML 60466) HCV RNA, PCR QUANT [REFLEX]2018-12-11 00:00:00 Test Item Value Reference Range Interpretation Comments HCV RNA, PCR QUANT (test code 35928890 IU/ML = 4571) HCV VIRAL LOG (test code = 7.013 LOGIU/ML 85061) HCV RNA, PCR QUANT [REFLEX]2018-12-11 00:00:00 Test Item Value Reference Range Interpretation Comments HCV RNA, PCR QUANT (test code 66242817 IU/ML = 4571) HCV VIRAL LOG (test code = 7.013 LOGIU/ML 57826) HCV RNA, PCR QUANT [REFLEX]2018-12-11 00:00:00 Test Item Value Reference Range Interpretation Comments HCV RNA, PCR QUANT (test code 89088935 IU/ML = 4571) HCV VIRAL LOG (test code = 7.013 LOGIU/ML 12039) HCV RNA, PCR QUANT [REFLEX]2018-12-11 00:00:00 Test Item Value Reference Range Interpretation Comments HCV RNA, PCR QUANT (test code 55303964 IU/ML = 4571) HCV VIRAL LOG (test code = 7.013 LOGIU/ML 99514) HCV RNA, PCR QUANT [REFLEX]2018-12-11 00:00:00 Test Item Value Reference Range Interpretation Comments HCV RNA, PCR QUANT (test code 78458665 IU/ML = 4571) HCV VIRAL LOG (test code = 7.013 LOGIU/ML 93098) HCV RNA, PCR QUANT [REFLEX]2018-12-11 00:00:00 Test Item Value Reference Range Interpretation Comments HCV RNA, PCR QUANT (test code 67419252 IU/ML = 4571) HCV VIRAL LOG (test code = 7.013 LOGIU/ML 76539) HCV RNA, PCR QUANT [REFLEX]2018-12-11 00:00:00 Test Item Value Reference Range Interpretation Comments HCV RNA, PCR QUANT (test code 69814248 IU/ML = 4571) HCV VIRAL LOG (test code = 7.013 LOGIU/ML 56833) HCV RNA, PCR QUANT [REFLEX]2018-12-11 00:00:00 Test Item Value Reference Range Interpretation Comments HCV RNA, PCR QUANT (test code 50312775 IU/ML = 4571) HCV VIRAL LOG (test code = 7.013 LOGIU/ML 28173) HEPATITIS C REFLEX [id number] 00:00:00 Test Item Value Reference Range Interpretation Comments HEPATITIS C ANTIBODY (test code = REACTIVE 4675) HCV INDEX (test code = 72906) 14.84 HEPATITIS C REFLEX [id number] 00:00:00 Test Item Value Reference Range Interpretation Comments HEPATITIS C ANTIBODY (test code = REACTIVE 4675) HCV INDEX (test code = 52949) 14.84 HEPATITIS C REFLEX [id number] 00:00:00 Test Item Value Reference Range Interpretation Comments HEPATITIS C ANTIBODY (test code = REACTIVE 4675) HCV INDEX (test code = 66690) 14.84 HEPATITIS C REFLEX [id number] 00:00:00 Test Item Value Reference Range Interpretation Comments HEPATITIS C ANTIBODY (test code = REACTIVE 4675) HCV INDEX (test code = 77355) 14.84 HEPATITIS C REFLEX [id number] 00:00:00 Test Item Value Reference Range Interpretation Comments HEPATITIS C ANTIBODY (test code = REACTIVE 4675) HCV INDEX (test code = 49491) 14.84 HEPATITIS C REFLEX [id number] 00:00:00 Test Item Value Reference Range Interpretation Comments HEPATITIS C ANTIBODY (test code = REACTIVE 4675) HCV INDEX (test code = 47491) 14.84 HEPATITIS C REFLEX [id number] 00:00:00 Test Item Value Reference Range Interpretation Comments HEPATITIS C ANTIBODY (test code = REACTIVE 4675) HCV INDEX (test code = 63013) 14.84 HEPATITIS C REFLEX [id number] 00:00:00 Test Item Value Reference Range Interpretation Comments HEPATITIS C ANTIBODY (test code = REACTIVE 4675) HCV INDEX (test code = 61960) 14.84 HEPATITIS C REFLEX [id number] 00:00:00 Test Item Value Reference Range Interpretation Comments HEPATITIS C ANTIBODY (test code = REACTIVE 4675) HCV INDEX (test code = 01251) 14.84 HEPATITIS C REFLEX [id number] 00:00:00 Test Item Value Reference Range Interpretation Comments HEPATITIS C ANTIBODY (test code = REACTIVE 4675) HCV INDEX (test code = 96902) 14.84 HEPATITIS C REFLEX [id number] 00:00:00 Test Item Value Reference Range Interpretation Comments HEPATITIS C ANTIBODY (test code = REACTIVE 4675) HCV INDEX (test code = 28483) 14.84 COMPREHENSIVE METABOLIC [id number] 00:00:00 Test Item Value Reference Range Interpretation Comments GLUCOSE (test code = 2217) 109 MG/DL BUN (test code = 2208) 15 MG/DL CREATININE (test code = 2214) 0.69 MG/DL eGFR AMER. (test code 115 ML/MIN/1.73 = 59056) eGFR NON- AMER. (test 99 ML/MIN/1.73 code = 42302) CALC BUN/CREAT (test code = 22 RATIO [...] code = 2219) 17 U/L CBC W/AUTO [id number] 00:00:00 Test Item Value Reference Range Interpretation [...] code = 1015) 145 K/UL CBC W/AUTO [id number] 00:00:00 Test Item Value Reference Range Interpretation [...] COUNT (test code = 1015) 145 K/UL [id number] 00:00:00 Test Item Value Reference Range Interpretation Comments TSH, THIRD GENERATION (test code 2.110 UIU/ML = 2821) [id number] 00:00:00 Test Item Value Reference Range Interpretation Comments TSH, THIRD GENERATION (test code 2.110 UIU/ML = 2821) [id number] 00:00:00 Test Item Value Reference Range Interpretation Comments GGT (test code = 2216) 25 U/L ACUTE HEPATITIS [id number] 00:00:00 Test Item Value Reference Range Interpretation Comments HEPATITIS A IgM (test code = NON-REACTIVE 62210) HEPATITIS B CORE IgM (test code NON-REACTIVE = 4644) HEPATITIS B SURF AG (test code = NON-REACTIVE 6749) HEPATITIS C ANTIBODY (test code REACTIVE = 4675) HCV INDEX (test code = 47915) 13.68 INTERPRETATION HEPATITIS A: (NOTE) (test code = 2552) INTERPRETATION HEPATITIS B: (NOTE) (test code = 27357) INTERPRETATION HEPATITIS C: (NOTE) (test code = 40414) ACUTE HEPATITIS [id number] 00:00:00 Test Item Value Reference Range Interpretation Comments HEPATITIS A IgM (test code = NON-REACTIVE 01048) HEPATITIS B CORE IgM (test code NON-REACTIVE = 4644) HEPATITIS B SURF AG (test code = NON-REACTIVE 2739) HEPATITIS C ANTIBODY (test code REACTIVE = 4675) HCV INDEX (test code = 95741) 13.68 INTERPRETATION HEPATITIS A: (NOTE) (test code = 2552) INTERPRETATION HEPATITIS B: (NOTE) (test code = 88151) INTERPRETATION HEPATITIS C: (NOTE) (test code = 64711) COMPREHENSIVE METABOLIC [id number] 00:00:00 Test Item Value Reference Range Interpretation Comments GLUCOSE (test code = 2217) 109 MG/DL BUN (test code = 2208) 15 MG/DL CREATININE (test code = 2214) 0.69 MG/DL eGFR AMER. (test code 115 ML/MIN/1.73 = 41406) eGFR NON- AMER. (test 99 ML/MIN/1.73 code = 68143) CALC BUN/CREAT (test code = 22 RATIO [...] code = 2219) 17 U/L COMPREHENSIVE METABOLIC [id number] 00:00:00 Test Item Value Reference Range Interpretation Comments GLUCOSE (test code = 2217) 109 MG/DL BUN (test code = 2208) 15 MG/DL CREATININE (test code = 2214) 0.69 MG/DL eGFR AMER. (test code 115 ML/MIN/1.73 = 76383) eGFR NON- AMER. (test 99 ML/MIN/1.73 code = 95224) CALC BUN/CREAT (test code = 22 RATIO [...] code = 2219) 17 U/L CBC W/AUTO [id number] 00:00:00 Test Item Value Reference Range Interpretation [...] code = 1015) 145 K/UL CBC W/AUTO [id number] 00:00:00 Test Item Value Reference Range Interpretation [...] code = 1015) 145 K/UL CBC W/AUTO [id number] 00:00:00 Test Item Value Reference Range Interpretation [...] COUNT (test code = 1015) 145 K/UL [id number] 00:00:00 Test Item Value Reference Range Interpretation Comments TSH, THIRD GENERATION (test code 2.110 UIU/ML = 2821) [id number] 00:00:00 Test Item Value Reference Range Interpretation Comments TSH, THIRD GENERATION (test code 2.110 UIU/ML = 2821) [id number] 00:00:00 Test Item Value Reference Range Interpretation Comments TSH, THIRD GENERATION (test code 2.110 UIU/ML = 2821) [id number] 00:00:00 Test Item Value Reference Range Interpretation Comments GGT (test code = 2216) 25 U/L [id number] 00:00:00 Test Item Value Reference Range Interpretation Comments GGT (test code = 2216) 25 U/L ACUTE HEPATITIS [id number] 00:00:00 Test Item Value Reference Range Interpretation Comments HEPATITIS A IgM (test code = NON-REACTIVE 17593) HEPATITIS B CORE IgM (test code NON-REACTIVE = 4644) HEPATITIS B SURF AG (test code = NON-REACTIVE 2739) HEPATITIS C ANTIBODY (test code REACTIVE = 4675) HCV INDEX (test code = 54197) 13.68 INTERPRETATION HEPATITIS A: (NOTE) (test code = 2552) INTERPRETATION HEPATITIS B: (NOTE) (test code = 79814) INTERPRETATION HEPATITIS C: (NOTE) (test code = 56689) ACUTE HEPATITIS [id number] 00:00:00 Test Item Value Reference Range Interpretation Comments HEPATITIS A IgM (test code = NON-REACTIVE 55990) HEPATITIS B CORE IgM (test code NON-REACTIVE = 4644) HEPATITIS B SURF AG (test code = NON-REACTIVE 2739) HEPATITIS C ANTIBODY (test code REACTIVE = 4675) HCV INDEX (test code = 56546) 13.68 INTERPRETATION HEPATITIS A: (NOTE) (test code = 2552) INTERPRETATION HEPATITIS B: (NOTE) (test code = 68831) INTERPRETATION HEPATITIS C: (NOTE) (test code = 00409) COMPREHENSIVE METABOLIC [id number] 00:00:00 Test Item Value Reference Range Interpretation Comments GLUCOSE (test code = 2217) 109 MG/DL BUN (test code = 2208) 15 MG/DL CREATININE (test code = 2214) 0.69 MG/DL eGFR AMER. (test code 115 ML/MIN/1.73 = 68444) eGFR NON- AMER. (test 99 ML/MIN/1.73 code = 82424) CALC BUN/CREAT (test code = 22 RATIO [...] code = 2219) 17 U/L COMPREHENSIVE METABOLIC [id number] 00:00:00 Test Item Value Reference Range Interpretation Comments GLUCOSE (test code = 2217) 109 MG/DL BUN (test code = 2208) 15 MG/DL CREATININE (test code = 2214) 0.69 MG/DL eGFR AMER. (test code 115 ML/MIN/1.73 = 41773) eGFR NON- AMER. (test 99 ML/MIN/1.73 code = 64329) CALC BUN/CREAT (test code = 22 RATIO [...] code = 2219) 17 U/L CBC W/AUTO [id number] 00:00:00 Test Item Value Reference Range Interpretation [...] code = 1015) 145 K/UL CBC W/AUTO [id number] 00:00:00 Test Item Value Reference Range Interpretation [...] code = 1015) 145 K/UL CBC W/AUTO [id number] 00:00:00 Test Item Value Reference Range Interpretation [...] COUNT (test code = 1015) 145 K/UL [id number] 00:00:00 Test Item Value Reference Range Interpretation Comments TSH, THIRD GENERATION (test code 2.110 UIU/ML = 2821) [id number] 00:00:00 Test Item Value Reference Range Interpretation Comments TSH, THIRD GENERATION (test code 2.110 UIU/ML = 2821) [id number] 00:00:00 Test Item Value Reference Range Interpretation Comments TSH, THIRD GENERATION (test code 2.110 UIU/ML = 2821) [id number] 00:00:00 Test Item Value Reference Range Interpretation Comments GGT (test code = 2216) 25 U/L [id number] 00:00:00 Test Item Value Reference Range Interpretation Comments GGT (test code = 2216) 25 U/L ACUTE HEPATITIS [id number] 00:00:00 Test Item Value Reference Range Interpretation Comments HEPATITIS A IgM (test code = NON-REACTIVE 36214) HEPATITIS B CORE IgM (test code NON-REACTIVE = 4644) HEPATITIS B SURF AG (test code = NON-REACTIVE 2739) HEPATITIS C ANTIBODY (test code REACTIVE = 4675) HCV INDEX (test code = 19751) 13.68 INTERPRETATION HEPATITIS A: (NOTE) (test code = 2552) INTERPRETATION HEPATITIS B: (NOTE) (test code = 78497) INTERPRETATION HEPATITIS C: (NOTE) (test code = 73423) ACUTE HEPATITIS [id number] 00:00:00 Test Item Value Reference Range Interpretation Comments HEPATITIS A IgM (test code = NON-REACTIVE 69536) HEPATITIS B CORE IgM (test code NON-REACTIVE = 4644) HEPATITIS B SURF AG (test code = NON-REACTIVE 2739) HEPATITIS C ANTIBODY (test code REACTIVE = 4675) HCV INDEX (test code = 81854) 13.68 INTERPRETATION HEPATITIS A: (NOTE) (test code = 2552) INTERPRETATION HEPATITIS B: (NOTE) (test code = 72104) INTERPRETATION HEPATITIS C: (NOTE) (test code = 09597) COMPREHENSIVE METABOLIC [id number] 00:00:00 Test Item Value Reference Range Interpretation Comments GLUCOSE (test code = 2217) 109 MG/DL BUN (test code = 2208) 15 MG/DL CREATININE (test code = 2214) 0.69 MG/DL eGFR AMER. (test code 115 ML/MIN/1.73 = 94648) eGFR NON- AMER. (test 99 ML/MIN/1.73 code = 95604) CALC BUN/CREAT (test code = 22 RATIO [...] code = 2219) 17 U/L COMPREHENSIVE METABOLIC [id number] 00:00:00 Test Item Value Reference Range Interpretation Comments GLUCOSE (test code = 2217) 109 MG/DL BUN (test code = 2208) 15 MG/DL CREATININE (test code = 2214) 0.69 MG/DL eGFR AMER. (test code 115 ML/MIN/1.73 = 27047) eGFR NON- AMER. (test 99 ML/MIN/1.73 code = 36750) CALC BUN/CREAT (test code = 22 RATIO [...] code = 2219) 17 U/L CBC W/AUTO [id number] 00:00:00 Test Item Value Reference Range Interpretation [...] code = 1015) 145 K/UL CBC W/AUTO [id number] 00:00:00 Test Item Value Reference Range Interpretation [...] code = 1015) 145 K/UL CBC W/AUTO [id number] 00:00:00 Test Item Value Reference Range Interpretation [...] COUNT (test code = 1015) 145 K/UL [id number] 00:00:00 Test Item Value Reference Range Interpretation Comments TSH, THIRD GENERATION (test code 2.110 UIU/ML = 2821) [id number] 00:00:00 Test Item Value Reference Range Interpretation Comments TSH, THIRD GENERATION (test code 2.110 UIU/ML = 2821) [id number] 00:00:00 Test Item Value Reference Range Interpretation Comments TSH, THIRD GENERATION (test code 2.110 UIU/ML = 2821) [id number] 00:00:00 Test Item Value Reference Range Interpretation Comments GGT (test code = 2216) 25 U/L [id number] 00:00:00 Test Item Value Reference Range Interpretation Comments GGT (test code = 2216) 25 U/L ACUTE HEPATITIS [id number] 00:00:00 Test Item Value Reference Range Interpretation Comments HEPATITIS A IgM (test code = NON-REACTIVE 09366) HEPATITIS B CORE IgM (test code NON-REACTIVE = 4644) HEPATITIS B SURF AG (test code = NON-REACTIVE 2739) HEPATITIS C ANTIBODY (test code REACTIVE = 4675) HCV INDEX (test code = 45198) 13.68 INTERPRETATION HEPATITIS A: (NOTE) (test code = 2552) INTERPRETATION HEPATITIS B: (NOTE) (test code = 20419) INTERPRETATION HEPATITIS C: (NOTE) (test code = 72641) ACUTE HEPATITIS [id number] 00:00:00 Test Item Value Reference Range Interpretation Comments HEPATITIS A IgM (test code = NON-REACTIVE 11222) HEPATITIS B CORE IgM (test code NON-REACTIVE = 4644) HEPATITIS B SURF AG (test code = NON-REACTIVE 2739) HEPATITIS C ANTIBODY (test code REACTIVE = 4675) HCV INDEX (test code = 52064) 13.68 INTERPRETATION HEPATITIS A: (NOTE) (test code = 2552) INTERPRETATION HEPATITIS B: (NOTE) (test code = 14737) INTERPRETATION HEPATITIS C: (NOTE) (test code = 52780) COMPREHENSIVE METABOLIC [id number] 00:00:00 Test Item Value Reference Range Interpretation Comments GLUCOSE (test code = 2217) 109 MG/DL BUN (test code = 2208) 15 MG/DL CREATININE (test code = 2214) 0.69 MG/DL eGFR AMER. (test code 115 ML/MIN/1.73 = 77131) eGFR NON- AMER. (test 99 ML/MIN/1.73 code = 80050) CALC BUN/CREAT (test code = 22 RATIO [...] code = 2219) 17 U/L COMPREHENSIVE METABOLIC [id number] 00:00:00 Test Item Value Reference Range Interpretation Comments GLUCOSE (test code = 2217) 109 MG/DL BUN (test code = 2208) 15 MG/DL CREATININE (test code = 2214) 0.69 MG/DL eGFR AMER. (test code 115 ML/MIN/1.73 = 98585) eGFR NON- AMER. (test 99 ML/MIN/1.73 code = 93755) CALC BUN/CREAT (test code = 22 RATIO [...] code = 2219) 17 U/L CBC W/AUTO [id number] 00:00:00 Test Item Value Reference Range Interpretation [...] code = 1015) 145 K/UL CBC W/AUTO [id number] 00:00:00 Test Item Value Reference Range Interpretation [...] code = 1015) 145 K/UL CBC W/AUTO [id number] 00:00:00 Test Item Value Reference Range Interpretation [...] COUNT (test code = 1015) 145 K/UL [id number] 00:00:00 Test Item Value Reference Range Interpretation Comments TSH, THIRD GENERATION (test code 2.110 UIU/ML = 2821) [id number] 00:00:00 Test Item Value Reference Range Interpretation Comments TSH, THIRD GENERATION (test code 2.110 UIU/ML = 2821) [id number] 00:00:00 Test Item Value Reference Range Interpretation Comments TSH, THIRD GENERATION (test code 2.110 UIU/ML = 2821) [id number] 00:00:00 Test Item Value Reference Range Interpretation Comments GGT (test code = 2216) 25 U/L [id number] 00:00:00 Test Item Value Reference Range Interpretation Comments GGT (test code = 2216) 25 U/L ACUTE HEPATITIS [id number] 00:00:00 Test Item Value Reference Range Interpretation Comments HEPATITIS A IgM (test code = NON-REACTIVE 76652) HEPATITIS B CORE IgM (test code NON-REACTIVE = 4644) HEPATITIS B SURF AG (test code = NON-REACTIVE 2739) HEPATITIS C ANTIBODY (test code REACTIVE = 4675) HCV INDEX (test code = 83221) 13.68 INTERPRETATION HEPATITIS A: (NOTE) (test code = 2552) INTERPRETATION HEPATITIS B: (NOTE) (test code = 21390) INTERPRETATION HEPATITIS C: (NOTE) (test code = 79674) ACUTE HEPATITIS [id number] 00:00:00 Test Item Value Reference Range Interpretation Comments HEPATITIS A IgM (test code = NON-REACTIVE 22126) HEPATITIS B CORE IgM (test code NON-REACTIVE = 4644) HEPATITIS B SURF AG (test code = NON-REACTIVE 5699) HEPATITIS C ANTIBODY (test code REACTIVE = 4675) HCV INDEX (test code = 99123) 13.68 INTERPRETATION HEPATITIS A: (NOTE) (test code = 2552) INTERPRETATION HEPATITIS B: (NOTE) (test code = 18142) INTERPRETATION HEPATITIS C: (NOTE) (test code = 95257) COMPREHENSIVE METABOLIC [id number] 00:00:00 Test Item Value Reference Range Interpretation Comments GLUCOSE (test code = 2217) 109 MG/DL BUN (test code = 2208) 15 MG/DL CREATININE (test code = 2214) 0.69 MG/DL eGFR AMER. (test code 115 ML/MIN/1.73 = 00596) eGFR NON- AMER. (test 99 ML/MIN/1.73 code = 75763) CALC BUN/CREAT (test code = 22 RATIO [...] code = 2219) 17 U/L COMPREHENSIVE METABOLIC [id number] 00:00:00 Test Item Value Reference Range Interpretation Comments GLUCOSE (test code = 2217) 109 MG/DL BUN (test code = 2208) 15 MG/DL CREATININE (test code = 2214) 0.69 MG/DL eGFR AMER. (test code 115 ML/MIN/1.73 = 49799) eGFR NON- AMER. (test 99 ML/MIN/1.73 code = 46824) CALC BUN/CREAT (test code = 22 RATIO [...] code = 2219) 17 U/L CBC W/AUTO [id number] 00:00:00 Test Item Value Reference Range Interpretation [...] code = 1015) 145 K/UL CBC W/AUTO [id number] 00:00:00 Test Item Value Reference Range Interpretation [...] code = 1015) 145 K/UL CBC W/AUTO [id number] 00:00:00 Test Item Value Reference Range Interpretation [...] COUNT (test code = 1015) 145 K/UL [id number] 00:00:00 Test Item Value Reference Range Interpretation Comments TSH, THIRD GENERATION (test code 2.110 UIU/ML = 2821) [id number] 00:00:00 Test Item Value Reference Range Interpretation Comments TSH, THIRD GENERATION (test code 2.110 UIU/ML = 2821) [id number] 00:00:00 Test Item Value Reference Range Interpretation Comments TSH, THIRD GENERATION (test code 2.110 UIU/ML = 2821) [id number] 00:00:00 Test Item Value Reference Range Interpretation Comments GGT (test code = 2216) 25 U/L [id number] 00:00:00 Test Item Value Reference Range Interpretation Comments GGT (test code = 2216) 25 U/L ACUTE HEPATITIS [id number] 00:00:00 Test Item Value Reference Range Interpretation Comments HEPATITIS A IgM (test code = NON-REACTIVE 56121) HEPATITIS B CORE IgM (test code NON-REACTIVE = 4644) HEPATITIS B SURF AG (test code = NON-REACTIVE 4919) HEPATITIS C ANTIBODY (test code REACTIVE = 4675) HCV INDEX (test code = 23128) 13.68 INTERPRETATION HEPATITIS A: (NOTE) (test code = 2552) INTERPRETATION HEPATITIS B: (NOTE) (test code = 16787) INTERPRETATION HEPATITIS C: (NOTE) (test code = 28804) LIPID [id number] 00:00:00 Test Item Value Reference Range Interpretation Comments CHOLESTEROL (test code = 2210) 146 MG/DL TRIGLYCERIDES (test code = 2232) 248 MG/DL HDL CHOLESTEROL (test code = 2220) 27 MG/DL CALC LDL CHOL (test code = 2237) 69 MG/DL RISK RATIO LDL/HDL (test code = 2.57 RATIO 2238) COMPREHENSIVE METABOLIC [id number] 00:00:00 Test Item Value Reference Range Interpretation Comments GLUCOSE (test code = 2217) 100 MG/DL BUN (test code = 2208) 11 MG/DL CREATININE (test code = 2214) 0.72 MG/DL eGFR AMER. (test code 111 ML/MIN/1.73 = 10372) eGFR NON- AMER. (test 96 ML/MIN/1.73 code = 96315) CALC BUN/CREAT (test code = 15 RATIO [...] (test code = 2219) 25 U/L HEMOGLOBIN [id number] 00:00:00 Test Item Value Reference Range Interpretation Comments HEMOGLOBIN A1c (test code = 34278) 5.5 % HEMOGLOBIN [id number] 00:00:00 Test Item Value Reference Range Interpretation Comments HEMOGLOBIN A1c (test code = 09521) 5.5 % HEMOGLOBIN [id number] 00:00:00 Test Item Value Reference Range Interpretation Comments HEMOGLOBIN A1c (test code = 35089) 5.5 % LIPID [id number] 00:00:00 Test Item Value Reference Range Interpretation Comments CHOLESTEROL (test code = 2210) 146 MG/DL TRIGLYCERIDES (test code = 2232) 248 MG/DL HDL CHOLESTEROL (test code = 2220) 27 MG/DL CALC LDL CHOL (test code = 2237) 69 MG/DL RISK RATIO LDL/HDL (test code = 2.57 RATIO 2238) LIPID [id number] 00:00:00 Test Item Value Reference Range Interpretation Comments CHOLESTEROL (test code = 2210) 146 MG/DL TRIGLYCERIDES (test code = 2232) 248 MG/DL HDL CHOLESTEROL (test code = 2220) 27 MG/DL CALC LDL CHOL (test code = 2237) 69 MG/DL RISK RATIO LDL/HDL (test code = 2.57 RATIO 2238) COMPREHENSIVE METABOLIC [id number] 00:00:00 Test Item Value Reference Range Interpretation Comments GLUCOSE (test code = 2217) 100 MG/DL BUN (test code = 2208) 11 MG/DL CREATININE (test code = 2214) 0.72 MG/DL eGFR AMER. (test code 111 ML/MIN/1.73 = 12419) eGFR NON- AMER. (test 96 ML/MIN/1.73 code = 77519) CALC BUN/CREAT (test code = 15 RATIO [...] code = 2219) 25 U/L COMPREHENSIVE METABOLIC [id number] 00:00:00 Test Item Value Reference Range Interpretation Comments GLUCOSE (test code = 2217) 100 MG/DL BUN (test code = 2208) 11 MG/DL CREATININE (test code = 2214) 0.72 MG/DL eGFR AMER. (test code 111 ML/MIN/1.73 = 37398) eGFR NON- AMER. (test 96 ML/MIN/1.73 code = 30969) CALC BUN/CREAT (test code = 15 RATIO [...] (test code = 2219) 25 U/L HEMOGLOBIN [id number] 00:00:00 Test Item Value Reference Range Interpretation Comments HEMOGLOBIN A1c (test code = 47764) 5.5 % HEMOGLOBIN [id number] 00:00:00 Test Item Value Reference Range Interpretation Comments HEMOGLOBIN A1c (test code = 56874) 5.5 % HEMOGLOBIN [id number] 00:00:00 Test Item Value Reference Range Interpretation Comments HEMOGLOBIN A1c (test code = 81686) 5.5 % LIPID [id number] 00:00:00 Test Item Value Reference Range Interpretation Comments CHOLESTEROL (test code = 2210) 146 MG/DL TRIGLYCERIDES (test code = 2232) 248 MG/DL HDL CHOLESTEROL (test code = 2220) 27 MG/DL CALC LDL CHOL (test code = 2237) 69 MG/DL RISK RATIO LDL/HDL (test code = 2.57 RATIO 2238) LIPID [id number] 00:00:00 Test Item Value Reference Range Interpretation Comments CHOLESTEROL (test code = 2210) 146 MG/DL TRIGLYCERIDES (test code = 2232) 248 MG/DL HDL CHOLESTEROL (test code = 2220) 27 MG/DL CALC LDL CHOL (test code = 2237) 69 MG/DL RISK RATIO LDL/HDL (test code = 2.57 RATIO 2238) COMPREHENSIVE METABOLIC [id number] 00:00:00 Test Item Value Reference Range Interpretation Comments GLUCOSE (test code = 2217) 100 MG/DL BUN (test code = 2208) 11 MG/DL CREATININE (test code = 2214) 0.72 MG/DL eGFR AMER. (test code 111 ML/MIN/1.73 = 92071) eGFR NON- AMER. (test 96 ML/MIN/1.73 code = 27532) CALC BUN/CREAT (test code = 15 RATIO [...] code = 2219) 25 U/L COMPREHENSIVE METABOLIC [id number] 00:00:00 Test Item Value Reference Range Interpretation Comments GLUCOSE (test code = 2217) 100 MG/DL BUN (test code = 2208) 11 MG/DL CREATININE (test code = 2214) 0.72 MG/DL eGFR AMER. (test code 111 ML/MIN/1.73 = 03419) eGFR NON- AMER. (test 96 ML/MIN/1.73 code = 91629) CALC BUN/CREAT (test code = 15 RATIO [...] (test code = 2219) 25 U/L HEMOGLOBIN [id number] 00:00:00 Test Item Value Reference Range Interpretation Comments HEMOGLOBIN A1c (test code = 69614) 5.5 % HEMOGLOBIN [id number] 00:00:00 Test Item Value Reference Range Interpretation Comments HEMOGLOBIN A1c (test code = 78639) 5.5 % HEMOGLOBIN [id number] 00:00:00 Test Item Value Reference Range Interpretation Comments HEMOGLOBIN A1c (test code = 73419) 5.5 % LIPID [id number] 00:00:00 Test Item Value Reference Range Interpretation Comments CHOLESTEROL (test code = 2210) 146 MG/DL TRIGLYCERIDES (test code = 2232) 248 MG/DL HDL CHOLESTEROL (test code = 2220) 27 MG/DL CALC LDL CHOL (test code = 2237) 69 MG/DL RISK RATIO LDL/HDL (test code = 2.57 RATIO 2238) LIPID [id number] 00:00:00 Test Item Value Reference Range Interpretation Comments CHOLESTEROL (test code = 2210) 146 MG/DL TRIGLYCERIDES (test code = 2232) 248 MG/DL HDL CHOLESTEROL (test code = 2220) 27 MG/DL CALC LDL CHOL (test code = 2237) 69 MG/DL RISK RATIO LDL/HDL (test code = 2.57 RATIO 2238) COMPREHENSIVE METABOLIC [id number] 00:00:00 Test Item Value Reference Range Interpretation Comments GLUCOSE (test code = 2217) 100 MG/DL BUN (test code = 2208) 11 MG/DL CREATININE (test code = 2214) 0.72 MG/DL eGFR AMER. (test code 111 ML/MIN/1.73 = 68425) eGFR NON- AMER. (test 96 ML/MIN/1.73 code = 79180) CALC BUN/CREAT (test code = 15 RATIO [...] code = 2219) 25 U/L COMPREHENSIVE METABOLIC [id number] 00:00:00 Test Item Value Reference Range Interpretation Comments GLUCOSE (test code = 2217) 100 MG/DL BUN (test code = 2208) 11 MG/DL CREATININE (test code = 2214) 0.72 MG/DL eGFR AMER. (test code 111 ML/MIN/1.73 = 28634) eGFR NON- AMER. (test 96 ML/MIN/1.73 code = 83120) CALC BUN/CREAT (test code = 15 RATIO [...] (test code = 2219) 25 U/L HEMOGLOBIN [id number] 00:00:00 Test Item Value Reference Range Interpretation Comments HEMOGLOBIN A1c (test code = 51756) 5.5 % HEMOGLOBIN [id number] 00:00:00 Test Item Value Reference Range Interpretation Comments HEMOGLOBIN A1c (test code = 06328) 5.5 % HEMOGLOBIN [id number] 00:00:00 Test Item Value Reference Range Interpretation Comments HEMOGLOBIN A1c (test code = 38749) 5.5 % LIPID [id number] 00:00:00 Test Item Value Reference Range Interpretation Comments CHOLESTEROL (test code = 2210) 146 MG/DL TRIGLYCERIDES (test code = 2232) 248 MG/DL HDL CHOLESTEROL (test code = 2220) 27 MG/DL CALC LDL CHOL (test code = 2237) 69 MG/DL RISK RATIO LDL/HDL (test code = 2.57 RATIO 2238) LIPID [id number] 00:00:00 Test Item Value Reference Range Interpretation Comments CHOLESTEROL (test code = 2210) 146 MG/DL TRIGLYCERIDES (test code = 2232) 248 MG/DL HDL CHOLESTEROL (test code = 2220) 27 MG/DL CALC LDL CHOL (test code = 2237) 69 MG/DL RISK RATIO LDL/HDL (test code = 2.57 RATIO 2238) COMPREHENSIVE METABOLIC [id number] 00:00:00 Test Item Value Reference Range Interpretation Comments GLUCOSE (test code = 2217) 100 MG/DL BUN (test code = 2208) 11 MG/DL CREATININE (test code = 2214) 0.72 MG/DL eGFR AMER. (test code 111 ML/MIN/1.73 = 04577) eGFR NON- AMER. (test 96 ML/MIN/1.73 code = 60461) CALC BUN/CREAT (test code = 15 RATIO [...] code = 2219) 25 U/L COMPREHENSIVE METABOLIC [id number] 00:00:00 Test Item Value Reference Range Interpretation Comments GLUCOSE (test code = 2217) 100 MG/DL BUN (test code = 2208) 11 MG/DL CREATININE (test code = 2214) 0.72 MG/DL eGFR AMER. (test code 111 ML/MIN/1.73 = 95804) eGFR NON- AMER. (test 96 ML/MIN/1.73 code = 02683) CALC BUN/CREAT (test code = 15 RATIO [...] (test code = 2219) 25 U/L HEMOGLOBIN [id number] 00:00:00 Test Item Value Reference Range Interpretation Comments HEMOGLOBIN A1c (test code = 05363) 5.5 % HEMOGLOBIN [id number] 00:00:00 Test Item Value Reference Range Interpretation Comments HEMOGLOBIN A1c (test code = 95213) 5.5 % HEMOGLOBIN [id number] 00:00:00 Test Item Value Reference Range Interpretation Comments HEMOGLOBIN A1c (test code = 21040) 5.5 % LIPID [id number] 00:00:00 Test Item Value Reference Range Interpretation Comments CHOLESTEROL (test code = 2210) 146 MG/DL TRIGLYCERIDES (test code = 2232) 248 MG/DL HDL CHOLESTEROL (test code = 2220) 27 MG/DL CALC LDL CHOL (test code = 2237) 69 MG/DL RISK RATIO LDL/HDL (test code = 2.57 RATIO 2238) LIPID [id number] 00:00:00 Test Item Value Reference Range Interpretation Comments CHOLESTEROL (test code = 2210) 146 MG/DL TRIGLYCERIDES (test code = 2232) 248 MG/DL HDL CHOLESTEROL (test code = 2220) 27 MG/DL CALC LDL CHOL (test code = 2237) 69 MG/DL RISK RATIO LDL/HDL (test code = 2.57 RATIO 2238) COMPREHENSIVE METABOLIC [id number] 00:00:00 Test Item Value Reference Range Interpretation Comments GLUCOSE (test code = 2217) 100 MG/DL BUN (test code = 2208) 11 MG/DL CREATININE (test code = 2214) 0.72 MG/DL eGFR AMER. (test code 111 ML/MIN/1.73 = 29026) eGFR NON- AMER. (test 96 ML/MIN/1.73 code = 67158) CALC BUN/CREAT (test code = 15 RATIO [...] code = 2219) 25 U/L COMPREHENSIVE METABOLIC [id number] 00:00:00 Test Item Value Reference Range Interpretation Comments GLUCOSE (test code = 2217) 100 MG/DL BUN (test code = 2208) 11 MG/DL CREATININE (test code = 2214) 0.72 MG/DL eGFR AMER. (test code 111 ML/MIN/1.73 = 20053) eGFR NON- AMER. (test 96 ML/MIN/1.73 code = 21383) CALC BUN/CREAT (test code = 15 RATIO [...] (test code = 2219) 25 U/L HEMOGLOBIN [id number] 00:00:00 Test Item Value Reference Range Interpretation Comments HEMOGLOBIN A1c (test code = 84120) 5.5 % HEMOGLOBIN [id number] 00:00:00 Test Item Value Reference Range Interpretation Comments HEMOGLOBIN A1c (test code = 77846) 5.5 % PAP TEST, THINPREP, [id number] 00:00:00 Test Item Value Reference Range Interpretation Comments SOURCE: (test code = Cervical/Endocervical 8001) SLIDES: (test code = 1 8011) LMP: (test code = SEE NOTE 8021) SPECIMEN ADEQUACY: (NOTE) (test code = 45881) INTERPRETATION: (test NO EPITHELIAL code = 83296) ABNORMALITY SEE BELOW NURSE TRANSPLANT: Laure (test code = 8101) CHANEL Eaton(ASCP)IAC LOCATION: (test code (NOTE) = 08729) CPT: (test code = (NOTE) 8140) PAP TEST, THINPREP, [id number] 00:00:00 Test Item Value Reference Range Interpretation Comments SOURCE: (test code = Cervical/Endocervical 8001) SLIDES: (test code = 1 8011) LMP: (test code = SEE NOTE 8021) SPECIMEN ADEQUACY: (NOTE) (test code = 87076) INTERPRETATION: (test NO EPITHELIAL code = 27971) ABNORMALITY SEE BELOW NURSE TRANSPLANT: Laure (test code = 8101) [place],CT(ASCP)IAC LOCATION: (test code (NOTE) = 26543) CPT: (test code = (NOTE) 8140) PAP TEST, THINPREP, [id number] 00:00:00 Test Item Value Reference Range Interpretation Comments SOURCE: (test code = Cervical/Endocervical 8001) SLIDES: (test code = 1 8011) LMP: (test code = SEE NOTE 8021) SPECIMEN ADEQUACY: (NOTE) (test code = 76820) INTERPRETATION: (test NO EPITHELIAL code = 80379) ABNORMALITY SEE BELOW NURSE TRANSPLANT: Laure (test code = 8101) AngelitoCT(ASCP)IAC LOCATION: (test code (NOTE) = 31353) CPT: (test code = (NOTE) 8140) PAP TEST, THINPREP, [id number] 00:00:00 Test Item Value Reference Range Interpretation Comments SOURCE: (test code = Cervical/Endocervical 8001) SLIDES: (test code = 1 8011) LMP: (test code = SEE NOTE 8021) SPECIMEN ADEQUACY: (NOTE) (test code = 79417) INTERPRETATION: (test NO EPITHELIAL code = 21039) ABNORMALITY SEE BELOW NURSE TRANSPLANT: Laure (test code = 8101) [place](ASCP)IAC LOCATION: (test code (NOTE) = 96244) CPT: (test code = (NOTE) 8140) PAP TEST, THINPREP, [id number] 00:00:00 Test Item Value Reference Range Interpretation Comments SOURCE: (test code = Cervical/Endocervical 8001) SLIDES: (test code = 1 8011) LMP: (test code = SEE NOTE 8021) SPECIMEN ADEQUACY: (NOTE) (test code = 53900) INTERPRETATION: (test NO EPITHELIAL code = 76351) ABNORMALITY SEE BELOW NURSE TRANSPLANT: Laure (test code = 8101) Angel[place],CT(ASCP)IAC LOCATION: (test code (NOTE) = 94946) CPT: (test code = (NOTE) 8140) PAP TEST, THINPREP, [id number] 00:00:00 Test Item Value Reference Range Interpretation Comments SOURCE: (test code = Cervical/Endocervical 8001) SLIDES: (test code = 1 8011) LMP: (test code = SEE NOTE 8021) SPECIMEN ADEQUACY: (NOTE) (test code = 86016) INTERPRETATION: (test NO EPITHELIAL code = 63966) ABNORMALITY SEE BELOW NURSE TRANSPLANT: Laure (test code = 8101) [facility](ASCP)IAC LOCATION: (test code (NOTE) = 79713) CPT: (test code = (NOTE) 8140) PAP TEST, THINPREP, [id number] 00:00:00 Test Item Value Reference Range Interpretation Comments SOURCE: (test code = Cervical/Endocervical 8001) SLIDES: (test code = 1 8011) LMP: (test code = SEE NOTE 8021) SPECIMEN ADEQUACY: (NOTE) (test code = 04624) INTERPRETATION: (test NO EPITHELIAL code = 54419) ABNORMALITY SEE BELOW NURSE TRANSPLANT: Laure (test code = 8101) [facility](ASCP)IAC LOCATION: (test code (NOTE) = 73267) CPT: (test code = (NOTE) 8140) PAP TEST, THINPREP, [id number] 00:00:00 Test Item Value Reference Range Interpretation Comments SOURCE: (test code = Cervical/Endocervical 8001) SLIDES: (test code = 1 8011) LMP: (test code = SEE NOTE 8021) SPECIMEN ADEQUACY: (NOTE) (test code = 28884) INTERPRETATION: (test NO EPITHELIAL code = 05156) ABNORMALITY SEE BELOW NURSE TRANSPLANT: Laure (test code = 8101) [facility](ASCP)IAC LOCATION: (test code (NOTE) = 92580) CPT: (test code = (NOTE) 8140) PAP TEST, THINPREP, [id number] 00:00:00 Test Item Value Reference Range Interpretation Comments SOURCE: (test code = Cervical/Endocervical 8001) SLIDES: (test code = 1 8011) LMP: (test code = SEE NOTE 8021) SPECIMEN ADEQUACY: (NOTE) (test code = 72257) INTERPRETATION: (test NO EPITHELIAL code = 35618) ABNORMALITY SEE BELOW NURSE TRANSPLANT: Laure (test code = 8101) [facility](ASCP)IAC LOCATION: (test code (NOTE) = 43185) CPT: (test code = (NOTE) 8140) PAP TEST, THINPREP, [id number] 00:00:00 Test Item Value Reference Range Interpretation Comments SOURCE: (test code = Cervical/Endocervical 8001) SLIDES: (test code = 1 8011) LMP: (test code = SEE NOTE 8021) SPECIMEN ADEQUACY: (NOTE) (test code = 98147) INTERPRETATION: (test NO EPITHELIAL code = 17148) ABNORMALITY SEE BELOW NURSE TRANSPLANT: Laure (test code = 8101) [facility](ASCP)IAC LOCATION: (test code (NOTE) = 15544) CPT: (test code = (NOTE) 8140) PAP TEST, THINPREP, [id number] 00:00:00 Test Item Value Reference Range Interpretation Comments SOURCE: (test code = Cervical/Endocervical 8001) SLIDES: (test code = 1 8011) LMP: (test code = SEE NOTE 8021) SPECIMEN ADEQUACY: (NOTE) (test code = 89546) INTERPRETATION: (test NO EPITHELIAL code = 93977) ABNORMALITY SEE BELOW NURSE TRANSPLANT: Laure (test code = 8101) [place],CT(ASCP)IAC LOCATION: (test code (NOTE) = 18084) CPT: (test code = (NOTE) 8140) HPV HIGH RISK WITH GENOTYPE, [id number] 00:00:00 Test Item Value Reference Range Interpretation Comments HPV HIGH RISK INTERP (test code = NEGATIVE 51017) HPV 16 (test code = 23739) NEGATIVE HPV 18 (test code = 76279) NEGATIVE HPV, HR, OTHER GENOTYPES (test code NEGATIVE = 98299) HPV HIGH RISK WITH GENOTYPE, [id number] 00:00:00 Test Item Value Reference Range Interpretation Comments HPV HIGH RISK INTERP (test code = NEGATIVE 66138) HPV 16 (test code = 21538) NEGATIVE HPV 18 (test code = 87127) NEGATIVE HPV, HR, OTHER GENOTYPES (test code NEGATIVE = 99722) HPV HIGH RISK WITH GENOTYPE, [id number] 00:00:00 Test Item Value Reference Range Interpretation Comments HPV HIGH RISK INTERP (test code = NEGATIVE 57331) HPV 16 (test code = 24560) NEGATIVE HPV 18 (test code = 73692) NEGATIVE HPV, HR, OTHER GENOTYPES (test code NEGATIVE = 97918) HPV HIGH RISK WITH GENOTYPE, [id number] 00:00:00 Test Item Value Reference Range Interpretation Comments HPV HIGH RISK INTERP (test code = NEGATIVE 31273) HPV 16 (test code = 03188) NEGATIVE HPV 18 (test code = 37148) NEGATIVE HPV, HR, OTHER GENOTYPES (test code NEGATIVE = 64466) HPV HIGH RISK WITH GENOTYPE, [id number] 00:00:00 Test Item Value Reference Range Interpretation Comments HPV HIGH RISK INTERP (test code = NEGATIVE 94017) HPV 16 (test code = 59006) NEGATIVE HPV 18 (test code = 13895) NEGATIVE HPV, HR, OTHER GENOTYPES (test code NEGATIVE = 27600) HPV HIGH RISK WITH GENOTYPE, [id number] 00:00:00 Test Item Value Reference Range Interpretation Comments HPV HIGH RISK INTERP (test code = NEGATIVE 62621) HPV 16 (test code = 14326) NEGATIVE HPV 18 (test code = 95546) NEGATIVE HPV, HR, OTHER GENOTYPES (test code NEGATIVE = 16222) HPV HIGH RISK WITH GENOTYPE, [id number] 00:00:00 Test Item Value Reference Range Interpretation Comments HPV HIGH RISK INTERP (test code = NEGATIVE 22162) HPV 16 (test code = 68823) NEGATIVE HPV 18 (test code = 28252) NEGATIVE HPV, HR, OTHER GENOTYPES (test code NEGATIVE = 15744) HPV HIGH RISK WITH GENOTYPE, [id number] 00:00:00 Test Item Value Reference Range Interpretation Comments HPV HIGH RISK INTERP (test code = NEGATIVE 47828) HPV 16 (test code = 54850) NEGATIVE HPV 18 (test code = 41014) NEGATIVE HPV, HR, OTHER GENOTYPES (test code NEGATIVE = 44115) HPV HIGH RISK WITH GENOTYPE, [id number] 00:00:00 Test Item Value Reference Range Interpretation Comments HPV HIGH RISK INTERP (test code = NEGATIVE 33356) HPV 16 (test code = 36546) NEGATIVE HPV 18 (test code = 40650) NEGATIVE HPV, HR, OTHER GENOTYPES (test code NEGATIVE = 66484) HPV HIGH RISK WITH GENOTYPE, [id number] 00:00:00 Test Item Value Reference Range Interpretation Comments HPV HIGH RISK INTERP (test code = NEGATIVE 65424) HPV 16 (test code = 35669) NEGATIVE HPV 18 (test code = 96441) NEGATIVE HPV, HR, OTHER GENOTYPES (test code NEGATIVE = 38135) HPV HIGH RISK WITH GENOTYPE, [id number] 00:00:00 Test Item Value Reference Range Interpretation Comments HPV HIGH RISK INTERP (test code = NEGATIVE 72591) HPV 16 (test code = 35770) NEGATIVE HPV 18 (test code = 51789) NEGATIVE HPV, HR, OTHER GENOTYPES (test code NEGATIVE = 11191) CBC W/AUTO [id number] 00:00:00 Test Item Value Reference Range Interpretation [...] code = 1015) 164 K/UL CBC W/AUTO [id number] 00:00:00 Test Item Value Reference Range Interpretation [...] code = 1015) 164 K/UL COMPREHENSIVE METABOLIC [id number] 00:00:00 Test Item Value Reference Range Interpretation Comments GLUCOSE (test code = 2217) 95 MG/DL BUN (test code = 2208) 19 MG/DL CREATININE (test code = 2214) 0.62 MG/DL eGFR AMER. (test code 121 ML/MIN/1.73 = 85592) eGFR NON- AMER. (test 104 ML/MIN/1.73 code = 09160) CALC BUN/CREAT (test code = 31 RATIO [...] (test code = 2219) 20 U/L LIPID [id number] 00:00:00 Test Item Value Reference Range Interpretation [...] (test code = 2821) 1.0 UIU/ML HEMOGLOBIN [id number] 00:00:00 Test Item Value Reference Range Interpretation Comments HEMOGLOBIN A1c (test code = 46164) 5.6 % HEMOGLOBIN [id number] 00:00:00 Test Item Value Reference Range Interpretation Comments HEMOGLOBIN A1c (test code = 46171) 5.6 % HEMOGLOBIN [id number] 00:00:00 Test Item Value Reference Range Interpretation Comments HEMOGLOBIN A1c (test code = 71440) 5.6 % CBC W/AUTO [id number] 00:00:00 Test Item Value Reference Range Interpretation [...] code = 1015) 164 K/UL CBC W/AUTO [id number] 00:00:00 Test Item Value Reference Range Interpretation [...] code = 1015) 164 K/UL CBC W/AUTO [id number] 00:00:00 Test Item Value Reference Range Interpretation [...] code = 1015) 164 K/UL COMPREHENSIVE METABOLIC [id number] 00:00:00 Test Item Value Reference Range Interpretation Comments GLUCOSE (test code = 2217) 95 MG/DL BUN (test code = 2208) 19 MG/DL CREATININE (test code = 2214) 0.62 MG/DL eGFR AMER. (test code 121 ML/MIN/1.73 = 91690) eGFR NON- AMER. (test 104 ML/MIN/1.73 code = 04291) CALC BUN/CREAT (test code = 31 RATIO [...] code = 2219) 20 U/L COMPREHENSIVE METABOLIC [id number] 00:00:00 Test Item Value Reference Range Interpretation Comments GLUCOSE (test code = 2217) 95 MG/DL BUN (test code = 2208) 19 MG/DL CREATININE (test code = 2214) 0.62 MG/DL eGFR AMER. (test code 121 ML/MIN/1.73 = 34446) eGFR NON- AMER. (test 104 ML/MIN/1.73 code = 27212) CALC BUN/CREAT (test code = 31 RATIO [...] (test code = 2219) 20 U/L LIPID [id number] 00:00:00 Test Item Value Reference Range Interpretation Comments CHOLESTEROL (test code = 2210) 175 MG/DL TRIGLYCERIDES (test code = 2232) 107 MG/DL HDL CHOLESTEROL (test code = 2220) 44 MG/DL CALC LDL CHOL (test code = 2237) 110 MG/DL RISK RATIO LDL/HDL (test code = 2.49 RATIO 2238) LIPID [id number] 00:00:00 Test Item Value Reference Range Interpretation [...] (test code = 2821) 1.0 UIU/ML HEMOGLOBIN [id number] 00:00:00 Test Item Value Reference Range Interpretation Comments HEMOGLOBIN A1c (test code = 43731) 5.6 % HEMOGLOBIN [id number] 00:00:00 Test Item Value Reference Range Interpretation Comments HEMOGLOBIN A1c (test code = 66435) 5.6 % HEMOGLOBIN [id number] 00:00:00 Test Item Value Reference Range Interpretation Comments HEMOGLOBIN A1c (test code = 86524) 5.6 % CBC W/AUTO [id number] 00:00:00 Test Item Value Reference Range Interpretation [...] code = 1015) 164 K/UL CBC W/AUTO [id number] 00:00:00 Test Item Value Reference Range Interpretation [...] code = 1015) 164 K/UL CBC W/AUTO [id number] 00:00:00 Test Item Value Reference Range Interpretation [...] code = 1015) 164 K/UL COMPREHENSIVE METABOLIC [id number] 00:00:00 Test Item Value Reference Range Interpretation Comments GLUCOSE (test code = 2217) 95 MG/DL BUN (test code = 2208) 19 MG/DL CREATININE (test code = 2214) 0.62 MG/DL eGFR AMER. (test code 121 ML/MIN/1.73 = 48000) eGFR NON- AMER. (test 104 ML/MIN/1.73 code = 71229) CALC BUN/CREAT (test code = 31 RATIO [...] code = 2219) 20 U/L COMPREHENSIVE METABOLIC [id number] 00:00:00 Test Item Value Reference Range Interpretation Comments GLUCOSE (test code = 2217) 95 MG/DL BUN (test code = 2208) 19 MG/DL CREATININE (test code = 2214) 0.62 MG/DL eGFR AMER. (test code 121 ML/MIN/1.73 = 47034) eGFR NON- AMER. (test 104 ML/MIN/1.73 code = 20059) CALC BUN/CREAT (test code = 31 RATIO [...] (test code = 2219) 20 U/L LIPID [id number] 00:00:00 Test Item Value Reference Range Interpretation Comments CHOLESTEROL (test code = 2210) 175 MG/DL TRIGLYCERIDES (test code = 2232) 107 MG/DL HDL CHOLESTEROL (test code = 2220) 44 MG/DL CALC LDL CHOL (test code = 2237) 110 MG/DL RISK RATIO LDL/HDL (test code = 2.49 RATIO 2238) LIPID [id number] 00:00:00 Test Item Value Reference Range Interpretation [...] (test code = 2821) 1.0 UIU/ML HEMOGLOBIN [id number] 00:00:00 Test Item Value Reference Range Interpretation Comments HEMOGLOBIN A1c (test code = 96583) 5.6 % HEMOGLOBIN [id number] 00:00:00 Test Item Value Reference Range Interpretation Comments HEMOGLOBIN A1c (test code = 33776) 5.6 % HEMOGLOBIN [id number] 00:00:00 Test Item Value Reference Range Interpretation Comments HEMOGLOBIN A1c (test code = 23265) 5.6 % CBC W/AUTO [id number] 00:00:00 Test Item Value Reference Range Interpretation [...] code = 1015) 164 K/UL CBC W/AUTO [id number] 00:00:00 Test Item Value Reference Range Interpretation [...] code = 1015) 164 K/UL CBC W/AUTO [id number] 00:00:00 Test Item Value Reference Range Interpretation [...] code = 1015) 164 K/UL COMPREHENSIVE METABOLIC [id number] 00:00:00 Test Item Value Reference Range Interpretation Comments GLUCOSE (test code = 2217) 95 MG/DL BUN (test code = 2208) 19 MG/DL CREATININE (test code = 2214) 0.62 MG/DL eGFR AMER. (test code 121 ML/MIN/1.73 = 93294) eGFR NON- AMER. (test 104 ML/MIN/1.73 code = 19975) CALC BUN/CREAT (test code = 31 RATIO [...] code = 2219) 20 U/L COMPREHENSIVE METABOLIC [id number] 00:00:00 Test Item Value Reference Range Interpretation Comments GLUCOSE (test code = 2217) 95 MG/DL BUN (test code = 2208) 19 MG/DL CREATININE (test code = 2214) 0.62 MG/DL eGFR AMER. (test code 121 ML/MIN/1.73 = 16037) eGFR NON- AMER. (test 104 ML/MIN/1.73 code = 86062) CALC BUN/CREAT (test code = 31 RATIO [...] (test code = 2219) 20 U/L LIPID [id number] 00:00:00 Test Item Value Reference Range Interpretation Comments CHOLESTEROL (test code = 2210) 175 MG/DL TRIGLYCERIDES (test code = 2232) 107 MG/DL HDL CHOLESTEROL (test code = 2220) 44 MG/DL CALC LDL CHOL (test code = 2237) 110 MG/DL RISK RATIO LDL/HDL (test code = 2.49 RATIO 2238) LIPID [id number] 00:00:00 Test Item Value Reference Range Interpretation [...] (test code = 2821) 1.0 UIU/ML HEMOGLOBIN [id number] 00:00:00 Test Item Value Reference Range Interpretation Comments HEMOGLOBIN A1c (test code = 80606) 5.6 % HEMOGLOBIN [id number] 00:00:00 Test Item Value Reference Range Interpretation Comments HEMOGLOBIN A1c (test code = 77472) 5.6 % HEMOGLOBIN [id number] 00:00:00 Test Item Value Reference Range Interpretation Comments HEMOGLOBIN A1c (test code = 14172) 5.6 % CBC W/AUTO [id number] 00:00:00 Test Item Value Reference Range Interpretation [...] code = 1015) 164 K/UL CBC W/AUTO [id number] 00:00:00 Test Item Value Reference Range Interpretation [...] code = 1015) 164 K/UL CBC W/AUTO [id number] 00:00:00 Test Item Value Reference Range Interpretation [...] code = 1015) 164 K/UL COMPREHENSIVE METABOLIC [id number] 00:00:00 Test Item Value Reference Range Interpretation Comments GLUCOSE (test code = 2217) 95 MG/DL BUN (test code = 2208) 19 MG/DL CREATININE (test code = 2214) 0.62 MG/DL eGFR AMER. (test code 121 ML/MIN/1.73 = 14004) eGFR NON- AMER. (test 104 ML/MIN/1.73 code = 77906) CALC BUN/CREAT (test code = 31 RATIO [...] code = 2219) 20 U/L COMPREHENSIVE METABOLIC [id number] 00:00:00 Test Item Value Reference Range Interpretation Comments GLUCOSE (test code = 2217) 95 MG/DL BUN (test code = 2208) 19 MG/DL CREATININE (test code = 2214) 0.62 MG/DL eGFR AMER. (test code 121 ML/MIN/1.73 = 04460) eGFR NON- AMER. (test 104 ML/MIN/1.73 code = 22670) CALC BUN/CREAT (test code = 31 RATIO [...] (test code = 2219) 20 U/L LIPID [id number] 00:00:00 Test Item Value Reference Range Interpretation Comments CHOLESTEROL (test code = 2210) 175 MG/DL TRIGLYCERIDES (test code = 2232) 107 MG/DL HDL CHOLESTEROL (test code = 2220) 44 MG/DL CALC LDL CHOL (test code = 2237) 110 MG/DL RISK RATIO LDL/HDL (test code = 2.49 RATIO 2238) LIPID [id number] 00:00:00 Test Item Value Reference Range Interpretation [...] CALCULATED T7 (FTI) (test code = 2.55 4560) TSH (test code = 2821) 1.0 UIU/ML THYROID II PROFILE (T3U, T4, T7, [id number] 00:00:00 Test Item Value Reference Range Interpretation Comments T3 UPTAKE (test code = 2817) 28.7 % T4 (THYROXINE) (test code = 2819) 8.9 UG/DL CALCULATED T7 (FTI) (test code = 2.55 2820) TSH (test code = 2821) 1.0 UIU/ML HEMOGLOBIN [id number] 00:00:00 Test Item Value Reference Range Interpretation Comments HEMOGLOBIN A1c (test code = 80340) 5.6 % HEMOGLOBIN [id number] 00:00:00 Test Item Value Reference Range Interpretation Comments HEMOGLOBIN A1c (test code = 69815) 5.6 % HEMOGLOBIN [id number] 00:00:00 Test Item Value Reference Range Interpretation Comments HEMOGLOBIN A1c (test code = 80213) 5.6 % CBC W/AUTO [id number] 00:00:00 Test Item Value Reference Range Interpretation [...] code = 1015) 164 K/UL CBC W/AUTO [id number] 00:00:00 Test Item Value Reference Range Interpretation [...] (test code = 1015) 164 K/UL HEMOGLOBIN [id number] 00:00:00 Test Item Value Reference Range Interpretation Comments HEMOGLOBIN A1c (test code = 86701) 5.6 % CBC W/AUTO [id number] 00:00:00 Test Item Value Reference Range Interpretation [...] code = 1015) 164 K/UL COMPREHENSIVE METABOLIC [id number] 00:00:00 Test Item Value Reference Range Interpretation Comments GLUCOSE (test code = 2217) 95 MG/DL BUN (test code = 2208) 19 MG/DL CREATININE (test code = 2214) 0.62 MG/DL eGFR AMER. (test code 121 ML/MIN/1.73 = 37969) eGFR NON- AMER. (test 104 ML/MIN/1.73 code = 22287) CALC BUN/CREAT (test code = 31 RATIO [...] code = 2219) 20 U/L COMPREHENSIVE METABOLIC [id number] 00:00:00 Test Item Value Reference Range Interpretation Comments GLUCOSE (test code = 2217) 95 MG/DL BUN (test code = 2208) 19 MG/DL CREATININE (test code = 2214) 0.62 MG/DL eGFR AMER. (test code 121 ML/MIN/1.73 = 50348) eGFR NON- AMER. (test 104 ML/MIN/1.73 code = 19661) CALC BUN/CREAT (test code = 31 RATIO [...] (test code = 2219) 20 U/L LIPID [id number] 00:00:00 Test Item Value Reference Range Interpretation Comments CHOLESTEROL (test code = 2210) 175 MG/DL TRIGLYCERIDES (test code = 2232) 107 MG/DL HDL CHOLESTEROL (test code = 2220) 44 MG/DL CALC LDL CHOL (test code = 2237) 110 MG/DL RISK RATIO LDL/HDL (test code = 2.49 RATIO 2238) LIPID [id number] 00:00:00 Test Item Value Reference Range Interpretation [...] (test code = 2821) 1.0 UIU/ML HEMOGLOBIN [id number] 00:00:00 Test Item Value Reference Range Interpretation Comments HEMOGLOBIN A1c (test code = 17429) 5.6 % LIPID [id number] 00:00:00 Test Item Value Reference Range Interpretation Comments CHOLESTEROL (test code = 2210) 158 MG/DL TRIGLYCERIDES (test code = 2232) 111 MG/DL HDL CHOLESTEROL (test code = 2220) 40 MG/DL CALCULATED LDL CHOL (test code = 96 MG/DL 2237) RISK RATIO LDL/HDL (test code = 2.40 RATIO 2238) CBC W/AUTO [id number] 00:00:00 Test Item Value Reference Range Interpretation [...] code = 1015) 135 K/UL CBC W/AUTO [id number] 00:00:00 Test Item Value Reference Range Interpretation [...] (test code = 1015) 135 K/UL HEMOGLOBIN [id number] 00:00:00 Test Item Value Reference Range Interpretation Comments HEMOGLOBIN A1c (test code = 52067) 5.7 % HEMOGLOBIN [id number] 00:00:00 Test Item Value Reference Range Interpretation Comments HEMOGLOBIN A1c (test code = 96897) 5.7 % [id number] 00:00:00 Test Item Value Reference Range Interpretation Comments TSH (test code = 2821) 0.2 UIU/ML [id number] 00:00:00 Test Item Value Reference Range Interpretation Comments TSH (test code = 2821) 0.2 UIU/ML COMPREHENSIVE METABOLIC [id number] 00:00:00 Test Item Value Reference Range Interpretation Comments GLUCOSE (test code = 2217) 103 MG/DL BUN (test code = 2208) 16 MG/DL CREATININE (test code = 2214) 0.77 MG/DL eGFR AMER. (test code 104 ML/MIN/1.73 = 63162) eGFR NON- AMER. (test 90 ML/MIN/1.73 code = 82392) CALCULATED BUN/CREAT (test 21 RATIO code = [...] code = 2219) 19 U/L COMPREHENSIVE METABOLIC [id number] 00:00:00 Test Item Value Reference Range Interpretation Comments GLUCOSE (test code = 2217) 103 MG/DL BUN (test code = 2208) 16 MG/DL CREATININE (test code = 2214) 0.77 MG/DL eGFR AMER. (test code 104 ML/MIN/1.73 = 45880) eGFR NON- AMER. (test 90 ML/MIN/1.73 code = 92644) CALCULATED BUN/CREAT (test 21 RATIO code = [...] (test code = 2219) 19 U/L LIPID [id number] 00:00:00 Test Item Value Reference Range Interpretation Comments CHOLESTEROL (test code = 2210) 158 MG/DL TRIGLYCERIDES (test code = 2232) 111 MG/DL HDL CHOLESTEROL (test code = 2220) 40 MG/DL CALCULATED LDL CHOL (test code = 96 MG/DL 2237) RISK RATIO LDL/HDL (test code = 2.40 RATIO 2238) LIPID [id number] 00:00:00 Test Item Value Reference Range Interpretation Comments CHOLESTEROL (test code = 2210) 158 MG/DL TRIGLYCERIDES (test code = 2232) 111 MG/DL HDL CHOLESTEROL (test code = 2220) 40 MG/DL CALCULATED LDL CHOL (test code = 96 MG/DL 2237) RISK RATIO LDL/HDL (test code = 2.40 RATIO 2238) CBC W/AUTO [id number] 00:00:00 Test Item Value Reference Range Interpretation [...] code = 1015) 135 K/UL CBC W/AUTO [id number] 00:00:00 Test Item Value Reference Range Interpretation [...] code = 1015) 135 K/UL CBC W/AUTO [id number] 00:00:00 Test Item Value Reference Range Interpretation [...] (test code = 1015) 135 K/UL HEMOGLOBIN [id number] 00:00:00 Test Item Value Reference Range Interpretation Comments HEMOGLOBIN A1c (test code = 20831) 5.7 % HEMOGLOBIN [id number] 00:00:00 Test Item Value Reference Range Interpretation Comments HEMOGLOBIN A1c (test code = 23007) 5.7 % HEMOGLOBIN [id number] 00:00:00 Test Item Value Reference Range Interpretation Comments HEMOGLOBIN A1c (test code = 49237) 5.7 % [id number] 00:00:00 Test Item Value Reference Range Interpretation Comments TSH (test code = 2821) 0.2 UIU/ML [id number] 00:00:00 Test Item Value Reference Range Interpretation Comments TSH (test code = 2821) 0.2 UIU/ML [id number] 00:00:00 Test Item Value Reference Range Interpretation Comments TSH (test code = 2821) 0.2 UIU/ML COMPREHENSIVE METABOLIC [id number] 00:00:00 Test Item Value Reference Range Interpretation Comments GLUCOSE (test code = 2217) 103 MG/DL BUN (test code = 2208) 16 MG/DL CREATININE (test code = 2214) 0.77 MG/DL eGFR AMER. (test code 104 ML/MIN/1.73 = 05268) eGFR NON- AMER. (test 90 ML/MIN/1.73 code = 50929) CALCULATED BUN/CREAT (test 21 RATIO code = [...] code = 2219) 19 U/L COMPREHENSIVE METABOLIC [id number] 00:00:00 Test Item Value Reference Range Interpretation Comments GLUCOSE (test code = 2217) 103 MG/DL BUN (test code = 2208) 16 MG/DL CREATININE (test code = 2214) 0.77 MG/DL eGFR AMER. (test code 104 ML/MIN/1.73 = 49808) eGFR NON- AMER. (test 90 ML/MIN/1.73 code = 79078) CALCULATED BUN/CREAT (test 21 RATIO code = [...] (test code = 2219) 19 U/L LIPID [id number] 00:00:00 Test Item Value Reference Range Interpretation Comments CHOLESTEROL (test code = 2210) 158 MG/DL TRIGLYCERIDES (test code = 2232) 111 MG/DL HDL CHOLESTEROL (test code = 2220) 40 MG/DL CALCULATED LDL CHOL (test code = 96 MG/DL 2237) RISK RATIO LDL/HDL (test code = 2.40 RATIO 2238) LIPID [id number] 00:00:00 Test Item Value Reference Range Interpretation Comments CHOLESTEROL (test code = 2210) 158 MG/DL TRIGLYCERIDES (test code = 2232) 111 MG/DL HDL CHOLESTEROL (test code = 2220) 40 MG/DL CALCULATED LDL CHOL (test code = 96 MG/DL 2237) RISK RATIO LDL/HDL (test code = 2.40 RATIO 2238) CBC W/AUTO [id number] 00:00:00 Test Item Value Reference Range Interpretation [...] code = 1015) 135 K/UL CBC W/AUTO [id number] 00:00:00 Test Item Value Reference Range Interpretation [...] code = 1015) 135 K/UL CBC W/AUTO [id number] 00:00:00 Test Item Value Reference Range Interpretation [...] (test code = 1015) 135 K/UL HEMOGLOBIN [id number] 00:00:00 Test Item Value Reference Range Interpretation Comments HEMOGLOBIN A1c (test code = 39387) 5.7 % HEMOGLOBIN [id number] 00:00:00 Test Item Value Reference Range Interpretation Comments HEMOGLOBIN A1c (test code = 47963) 5.7 % HEMOGLOBIN [id number] 00:00:00 Test Item Value Reference Range Interpretation Comments HEMOGLOBIN A1c (test code = 09516) 5.7 % [id number] 00:00:00 Test Item Value Reference Range Interpretation Comments TSH (test code = 2821) 0.2 UIU/ML [id number] 00:00:00 Test Item Value Reference Range Interpretation Comments TSH (test code = 2821) 0.2 UIU/ML [id number] 00:00:00 Test Item Value Reference Range Interpretation Comments TSH (test code = 2821) 0.2 UIU/ML COMPREHENSIVE METABOLIC [id number] 00:00:00 Test Item Value Reference Range Interpretation Comments GLUCOSE (test code = 2217) 103 MG/DL BUN (test code = 2208) 16 MG/DL CREATININE (test code = 2214) 0.77 MG/DL eGFR AMER. (test code 104 ML/MIN/1.73 = 08695) eGFR NON- AMER. (test 90 ML/MIN/1.73 code = 72065) CALCULATED BUN/CREAT (test 21 RATIO code = [...] code = 2219) 19 U/L COMPREHENSIVE METABOLIC [id number] 00:00:00 Test Item Value Reference Range Interpretation Comments GLUCOSE (test code = 2217) 103 MG/DL BUN (test code = 2208) 16 MG/DL CREATININE (test code = 2214) 0.77 MG/DL eGFR AMER. (test code 104 ML/MIN/1.73 = 90587) eGFR NON- AMER. (test 90 ML/MIN/1.73 code = 55521) CALCULATED BUN/CREAT (test 21 RATIO code = [...] (test code = 2219) 19 U/L LIPID [id number] 00:00:00 Test Item Value Reference Range Interpretation Comments CHOLESTEROL (test code = 2210) 158 MG/DL TRIGLYCERIDES (test code = 2232) 111 MG/DL HDL CHOLESTEROL (test code = 2220) 40 MG/DL CALCULATED LDL CHOL (test code = 96 MG/DL 2237) RISK RATIO LDL/HDL (test code = 2.40 RATIO 2238) LIPID [id number] 00:00:00 Test Item Value Reference Range Interpretation Comments CHOLESTEROL (test code = 2210) 158 MG/DL TRIGLYCERIDES (test code = 2232) 111 MG/DL HDL CHOLESTEROL (test code = 2220) 40 MG/DL CALCULATED LDL CHOL (test code = 96 MG/DL 2237) RISK RATIO LDL/HDL (test code = 2.40 RATIO 2238) CBC W/AUTO [id number] 00:00:00 Test Item Value Reference Range Interpretation [...] code = 1015) 135 K/UL CBC W/AUTO [id number] 00:00:00 Test Item Value Reference Range Interpretation [...] code = 1015) 135 K/UL CBC W/AUTO [id number] 00:00:00 Test Item Value Reference Range Interpretation [...] (test code = 1015) 135 K/UL HEMOGLOBIN [id number] 00:00:00 Test Item Value Reference Range Interpretation Comments HEMOGLOBIN A1c (test code = 92189) 5.7 % HEMOGLOBIN [id number] 00:00:00 Test Item Value Reference Range Interpretation Comments HEMOGLOBIN A1c (test code = 42887) 5.7 % HEMOGLOBIN [id number] 00:00:00 Test Item Value Reference Range Interpretation Comments HEMOGLOBIN A1c (test code = 20002) 5.7 % [id number] 00:00:00 Test Item Value Reference Range Interpretation Comments TSH (test code = 2821) 0.2 UIU/ML [id number] 00:00:00 Test Item Value Reference Range Interpretation Comments TSH (test code = 2821) 0.2 UIU/ML [id number] 00:00:00 Test Item Value Reference Range Interpretation Comments TSH (test code = 2821) 0.2 UIU/ML COMPREHENSIVE METABOLIC [id number] 00:00:00 Test Item Value Reference Range Interpretation Comments GLUCOSE (test code = 2217) 103 MG/DL BUN (test code = 2208) 16 MG/DL CREATININE (test code = 2214) 0.77 MG/DL eGFR AMER. (test code 104 ML/MIN/1.73 = 61231) eGFR NON- AMER. (test 90 ML/MIN/1.73 code = 18869) CALCULATED BUN/CREAT (test 21 RATIO code = [...] code = 2219) 19 U/L COMPREHENSIVE METABOLIC [id number] 00:00:00 Test Item Value Reference Range Interpretation Comments GLUCOSE (test code = 2217) 103 MG/DL BUN (test code = 2208) 16 MG/DL CREATININE (test code = 2214) 0.77 MG/DL eGFR AMER. (test code 104 ML/MIN/1.73 = 34171) eGFR NON- AMER. (test 90 ML/MIN/1.73 code = 91524) CALCULATED BUN/CREAT (test 21 RATIO code = [...] (test code = 2219) 19 U/L LIPID [id number] 00:00:00 Test Item Value Reference Range Interpretation Comments CHOLESTEROL (test code = 2210) 158 MG/DL TRIGLYCERIDES (test code = 2232) 111 MG/DL HDL CHOLESTEROL (test code = 2220) 40 MG/DL CALCULATED LDL CHOL (test code = 96 MG/DL 2237) RISK RATIO LDL/HDL (test code = 2.40 RATIO 2238) LIPID [id number] 00:00:00 Test Item Value Reference Range Interpretation Comments CHOLESTEROL (test code = 2210) 158 MG/DL TRIGLYCERIDES (test code = 2232) 111 MG/DL HDL CHOLESTEROL (test code = 2220) 40 MG/DL CALCULATED LDL CHOL (test code = 96 MG/DL 2237) RISK RATIO LDL/HDL (test code = 2.40 RATIO 2238) CBC W/AUTO [id number] 00:00:00 Test Item Value Reference Range Interpretation [...] code = 1015) 135 K/UL CBC W/AUTO [id number] 00:00:00 Test Item Value Reference Range Interpretation [...] code = 1015) 135 K/UL CBC W/AUTO [id number] 00:00:00 Test Item Value Reference Range Interpretation [...] (test code = 1015) 135 K/UL HEMOGLOBIN [id number] 00:00:00 Test Item Value Reference Range Interpretation Comments HEMOGLOBIN A1c (test code = 12064) 5.7 % HEMOGLOBIN [id number] 00:00:00 Test Item Value Reference Range Interpretation Comments HEMOGLOBIN A1c (test code = 28388) 5.7 % HEMOGLOBIN [id number] 00:00:00 Test Item Value Reference Range Interpretation Comments HEMOGLOBIN A1c (test code = 21452) 5.7 % [id number] 00:00:00 Test Item Value Reference Range Interpretation Comments TSH (test code = 2821) 0.2 UIU/ML [id number] 00:00:00 Test Item Value Reference Range Interpretation Comments TSH (test code = 2821) 0.2 UIU/ML [id number] 00:00:00 Test Item Value Reference Range Interpretation Comments TSH (test code = 2821) 0.2 UIU/ML COMPREHENSIVE METABOLIC [id number] 00:00:00 Test Item Value Reference Range Interpretation Comments GLUCOSE (test code = 2217) 103 MG/DL BUN (test code = 2208) 16 MG/DL CREATININE (test code = 2214) 0.77 MG/DL eGFR AMER. (test code 104 ML/MIN/1.73 = 19378) eGFR NON- AMER. (test 90 ML/MIN/1.73 code = 21006) CALCULATED BUN/CREAT (test 21 RATIO code = [...] code = 2219) 19 U/L COMPREHENSIVE METABOLIC [id number] 00:00:00 Test Item Value Reference Range Interpretation Comments GLUCOSE (test code = 2217) 103 MG/DL BUN (test code = 2208) 16 MG/DL CREATININE (test code = 2214) 0.77 MG/DL eGFR AMER. (test code 104 ML/MIN/1.73 = 01356) eGFR NON- AMER. (test 90 ML/MIN/1.73 code = 95008) CALCULATED BUN/CREAT (test 21 RATIO code = [...] (test code = 2219) 19 U/L LIPID [id number] 00:00:00 Test Item Value Reference Range Interpretation Comments CHOLESTEROL (test code = 2210) 158 MG/DL TRIGLYCERIDES (test code = 2232) 111 MG/DL HDL CHOLESTEROL (test code = 2220) 40 MG/DL CALCULATED LDL CHOL (test code = 96 MG/DL 2237) RISK RATIO LDL/HDL (test code = 2.40 RATIO 2238) LIPID [id number] 00:00:00 Test Item Value Reference Range Interpretation Comments CHOLESTEROL (test code = 2210) 158 MG/DL TRIGLYCERIDES (test code = 2232) 111 MG/DL HDL CHOLESTEROL (test code = 2220) 40 MG/DL CALCULATED LDL CHOL (test code = 96 MG/DL 2237) RISK RATIO LDL/HDL (test code = 2.40 RATIO 2238) CBC W/AUTO [id number] 00:00:00 Test Item Value Reference Range Interpretation [...] code = 1015) 135 K/UL CBC W/AUTO [id number] 00:00:00 Test Item Value Reference Range Interpretation [...] code = 1015) 135 K/UL CBC W/AUTO [id number] 00:00:00 Test Item Value Reference Range Interpretation [...] (test code = 1015) 135 K/UL HEMOGLOBIN [id number] 00:00:00 Test Item Value Reference Range Interpretation Comments HEMOGLOBIN A1c (test code = 80984) 5.7 % HEMOGLOBIN [id number] 00:00:00 Test Item Value Reference Range Interpretation Comments HEMOGLOBIN A1c (test code = 98875) 5.7 % HEMOGLOBIN [id number] 00:00:00 Test Item Value Reference Range Interpretation Comments HEMOGLOBIN A1c (test code = 86102) 5.7 % [id number] 00:00:00 Test Item Value Reference Range Interpretation Comments TSH (test code = 2821) 0.2 UIU/ML [id number] 00:00:00 Test Item Value Reference Range Interpretation Comments TSH (test code = 2821) 0.2 UIU/ML [id number] 00:00:00 Test Item Value Reference Range Interpretation Comments TSH (test code = 2821) 0.2 UIU/ML COMPREHENSIVE METABOLIC [id number] 00:00:00 Test Item Value Reference Range Interpretation Comments GLUCOSE (test code = 2217) 103 MG/DL BUN (test code = 2208) 16 MG/DL CREATININE (test code = 2214) 0.77 MG/DL eGFR AMER. (test code 104 ML/MIN/1.73 = 91516) eGFR NON- AMER. (test 90 ML/MIN/1.73 code = 10085) CALCULATED BUN/CREAT (test 21 RATIO code = [...]
[2023-04-23] MEDS ORDERED: KETOROLAC 30 MG/ML INJ ONE (13:06)
--- NOTE | 2023-04-23 13:19 | RAD REPORT ---
EXAM DESCRIPTION: RAD - Knee Left 3 View - 04/23/2023 1:11 pm CLINICAL HISTORY: PAIN COMPARISON: No comparisons FINDINGS/IMPRESSION: No acute fracture. No malalignment. No significant focal degenerative changes.
--- NOTE | 2023-04-23 13:33 | EDPHYS ---
Physician Documentation [facility] Name: Dionne Robledo Age: 57 yrs Sex: Female : 1965 Arrival Date: 04/23/2023 Time: 12:10 Bed DX3 Private MD: ED Physician Teodoro Robertson HPI: 04/23 12:46 This 57 yrs old Female presents to ER via Ambulatory with complaints of Knee rn Pain. 12:46 The patient presents with pain. The complaints affect the left knee. Onset: The rn symptoms/episode began/occurred yesterday. Modifying factors: The symptoms are alleviated by remaining still, the symptoms are aggravated by movement, weight bearing, bending knee. Associated signs and symptoms: Pertinent negatives fever, weakness. Associated signs and symptoms: Pertinent negatives rash, warmth. Severity of symptoms: At their worst the symptoms were moderate, in the emergency department the symptoms have improved. The patient has not experienced similar symptoms in the past. The patient has not recently seen a physician. Pt reports left knee pain, no direct trauma or fall, was at work, is very active and climbs stairs/bends/lifts, noticed pain when standing/walking yesterday. Reports subjective swelling. Has had knee problems before with shots to right knee, states left knee "pops a lot". . Historical: - Allergies: 12:19 Codeine; jl7 - Home Meds: 12:19 Aspirin Oral [Active]; jl7 - PMHx: 12:19 stroke; jl7 - PSHx: 12:19 Cholecystectomy; Appendectomy; left ankle; jl7 - Immunization history:: Adult Immunizations unknown. - Social history:: Smoking status: Patient reports the use of cigarette tobacco products. - Family history:: not pertinent. - Hospitalizations: : No recent hospitalization is reported. ROS: 12:46 Constitutional: Negative for fever, chills, and weight loss, Cardiovascular: Negative rn for chest pain, palpitations, and edema, MS/Extremity: + left knee pain Skin: Negative for injury, rash, and discoloration. Exam: 12:46 Constitutional: This is a well developed, well nourished patient who is awake, alert, rn and in no acute distress. MS/ Extremity: Pulses equal, no cyanosis. Neurovascular intact. No wounds, no warmth, no redness. No focal bony tenderness. Vital Signs: 12:18 BP 107 / 81; Pulse 72; Resp 17; Temp 98.4; Pulse Ox 99% ; Pain 10/10; jl7 12:18 Pain Scale: Adult jl7 MDM: 12:12 Patient medically screened. rn 13:32 Differential diagnosis: strain, sprain, knee effusion, arthritis. Data reviewed: vital rn signs, nurses notes, radiologic studies, plain films, and as a result, I will discharge patient. Counseling: I had a detailed discussion with the patient and/or guardian regarding: the historical points, exam findings, and any diagnostic results supporting the discharge/admit diagnosis, radiology results, the need for outpatient follow up, to return to the emergency department if symptoms worsen or persist or if there are any questions or concerns that arise at home. Special discussion: I discussed with the patient/guardian in detail that at this point there is no indication for admission to the hospital. It is understood, however, that if the symptoms persist or worsen the patient needs to return immediately for re-evaluation. Further emergent ED testing is not indicated at this point in time. I discussed with the patient/guardian in detail the need to arrange with the PCP or specialist further outpatient testing, MRI, Based on the history and exam findings, there is no indication for further emergent testing or inpatient evaluation. I discussed with the patient/guardian the need to see the orthopedic surgeon for further evaluation of the symptoms. 04/23 12:26 Order name: XRAY Knee LEFT 3 view; Complete Time: 13:31 rn Administered Medications: 13:04 Drug: Ketorolac IM 15 mg Route: IM; Site: left deltoid; jl7 13:43 Follow up: Response: No adverse reaction; Pain is decreased ap3 Disposition Summary: 04/23/23 13:32 Discharge Ordered Location: Home rn Problem: new rn Symptoms: have improved rn Condition: Stable rn Diagnosis - Pain in left knee rn Followup: rn - With: Private Physician - When: As needed - Reason: Recheck today's complaints, Re-evaluation by your physician Discharge Instructions: - Discharge Summary Sheet rn - Pain Without a Known Cause rn - Acute Knee Pain, Adult rn Forms: - Medication Reconciliation Form rn - Thank You Letter rn - Antibiotic radio journalist - Prescription Opioid Use rn Signatures: Dispatcher [employer] EDTeodoro Madrigal MD MD rn Leal, Jahala, RN RN jl7 Patricia Roberts RN ap3
--- NOTE | 2023-04-23 13:33 | ER ---
Nurse's Notes [facility] Name: Dionne Robledo Age: 57 yrs Sex: Female : 1965 Arrival Date: 04/23/2023 Time: 12:10 Bed DX3 Private MD: Diagnosis: Pain in left knee Presentation: 04/23 12:18 Chief complaint: Patient states: Left knee pain since Sunday. Coronavirus screen: At jl7 this time, the client does not indicate any symptoms associated with coronavirus-19. Ebola Screen: No symptoms or risks identified at this time. Initial Sepsis Screen: Does the patient meet any 2 criteria? No. Patient's initial sepsis screen is negative. Does the patient have a suspected source of infection? No. Patient's initial sepsis screen is negative. Risk Assessment: Do you want to hurt yourself or someone else? Patient reports no desire to harm self or others. Onset of symptoms was August 22, 2023. 12:18 Method Of Arrival: Ambulatory [facility] 12:18 Acuity: ANDRÉS 4 jl7 Triage Assessment: 12:19 General: Appears in no apparent distress. uncomfortable, Behavior is calm, cooperative, jl7 appropriate for age. Pain: Complains of pain in left knee Pain currently is 10 out of 10 on a pain scale. Neuro: Level of Consciousness is awake, alert, obeys commands, Oriented to person, place, time, situation. Respiratory: Airway is patent Respiratory effort is even, unlabored, Respiratory pattern is regular, symmetrical. Derm: Skin is pink, warm \T\ dry. Musculoskeletal: Swelling absent. Historical: - Allergies: 12:19 Codeine; jl7 - Home Meds: 12:19 Aspirin Oral [Active]; jl7 - PMHx: 12:19 stroke; jl7 - PSHx: 12:19 Cholecystectomy; Appendectomy; left ankle; jl7 - Immunization history:: Adult Immunizations unknown. - Social history:: Smoking status: Patient reports the use of cigarette tobacco products. - Family history:: not pertinent. - Hospitalizations: : No recent hospitalization is reported. Screenin:[facility] ED Fall Risk Assessment (Adult) History of falling in the last 3 months, ap3 including since admission No falls in past 3 months (0 pts). Abuse screen: Denies threats or abuse. Nutritional screening: No deficits noted. Tuberculosis screening: No symptoms or risk factors identified. Vital Signs: 12:18 BP 107 / 81; Pulse 72; Resp 17; Temp 98.4; Pulse Ox 99% ; Pain 10/10; jl7 12:18 Pain Scale: Adult jl7 ED Course: 12:11 Patient arrived in ED. ts1 12:12 Teodoro Robertson MD is Attending Physician. rn 12:19 Triage completed. jl7 12:19 Arm band placed on right wrist. jl7 12:57 Renea Alvarez, RN is Primary Nurse. jl7 13:13 XRAY Knee LEFT 3 view In Process Unspecified. EDMS 13:42 No provider procedures requiring assistance completed. Patient did not have IV access ap3 during this emergency room visit. 13:43 Patient has correct armband on for positive identification. ap3 Administered Medications: 13:04 Drug: Ketorolac IM 15 mg Route: IM; Site: left deltoid; jl7 13:43 Follow up: Response: No adverse reaction; Pain is decreased ap3 Medication: 13:43 VIS not applicable for this client. ap3 Outcome: 13:32 Discharge ordered by . rn 13:42 Discharged to home ambulatory. ap3 13:42 Condition: good 13:42 Discharge instructions given to patient, Instructed on discharge instructions, follow up and referral plans. Demonstrated understanding of instructions, follow-up care. 13:43 Patient left the ED. ap3 Signatures: Dispatcher [employer] EDMS Teodoro Robertson MD MD rn Leal, Jahala, RN RN jl7 Patricia Roberts RN RN ap3 Marayna Flores PAS PAS ts1
[2023-04-23 14:13] VITALS: BP 107/81; TEMP 98.4; O2SAT 99
== END 2023-04-23 13:43 | disposition home or self-care (01) ==
LOC: ER 12:10
DX: M25.562 Pain in left knee (principal); Z88.5 Allergy status to narcotic agent; Z72.0 Tobacco use
CPT/HCPCS: 96372; 99284

== ENCOUNTER 2023-07-13 16:10 | Emergency (ER) | payer OTHER ==
--- OUTSIDE RECORDS SUMMARY | 2023-07-13 16:23 | XMS REPORT | Continuity of Care Document ---
:1965 Author Organization [facility] t Address [address] 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 Problems Condition Condition Condition Status Onset Resolution Last Treating Co mments Source Name Details Category Date Date Treatment Clinician Date Chronic Chronic Disease Active 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 00:00: [place] infection infection 00 [facility] No known No known Disease Unive rs active active ity of problems problems [facility] Pain in Pain in Diagnosis Active Commo n joint of joint of [facility] right knee right knee - [facility] Primary Primary Diagnosis Active Commo n osteoarthr osteoarthr Sp xochitl itis of itis of - [facility] right knee right knee [facility] Patellar Patellar Diagnosis Active Com mon tendinitis tendinitis Sp xochitl of right of right - [facility] knee knee [facility] Allergies, Adverse Reactions, Alerts Allergy Allergy Status Severity Reaction(s) Onset Inactive Treating Comm ents Source Name Type Date Date Clinician Codeine Propensi Active 2021-11 Phosphat ty to 12-17 e adverse 00:00: reaction 00 to drug [place] - Propensi Active Intraven ty to 05-22 ous adverse 00:00: reaction 00 to drug Codeine Propensi Active ty to 05-24 adverse 00:00: reaction 00 to drug CODEINE DRUG Active N/V Univers INGREDI 05-16 ity of 00:00: [place] 00 [facility] Branch Codeine Propensi Active Nausea Univers ty to and/or 05-16 ity of adverse Vomiting 00:00: [place] reaction 00 Medical s Branch codeine Adverse Active Info Not Common Reaction Available Spir t [facility] Social History Social Habit Start Date Stop Date Quantity Comments Source Tobacco use and 2019-08-22 2019-08-22 Current user Univers ity of exposure 00:00:00 00:00:00 [facility] Alcohol intake 2019-08-22 2019-08-22 Current drinker Unive rsity of 00:00:00 00:00:00 of alcohol [facility] (finding) [place] Sex [birth year] Universit y of 00:00:00 00:00:00 [facility] Smoking Status Start Date Stop Date Source Current some day smoker 2019-08-22 00:00:00 Univ ersity of [facility] Medications Ordered Filled Start Stop Current Ordering Indication Dosage Frequency Signature Comments Components Source Medication Medication Date Date Medication? Clinician (SIG) Name Name TAKE 1 TAB 2022-0 No 100 Q12H X 5 1-23 DAYS 00:00: 00 TAKE 1 TAB 2022-0 No 100 Q12H X 5 1-23 DAYS 00:00: 00 Dose 2022- No Unknown - 00:00: 00 TAKE 10 ML 2021-11 No BY MOUTH - EVERY 6 TO 00:00: 8 HOURS 00 NEEDED FOR COUGH Dose 2021-11 No Unknown 12-16 00:00: 00 Dose 2021-11 No Unknown - 00:00: 00 Dose 2021-11 No Unknown 12-16 00:00: 00 Dose 2022-1 No Unknown 1-21 00:00: 00 TAKE 1 2021-1 No TABLET BY 1-21 MOUTH EVERY 00:00: 8 HOURS 00 NEEDED FOR NAUSEA AND VOMITING cromolyn 4 2021-0 No 12% % eye drops 07-06 00:00: 00 cromolyn 4 2021-0 No 12% % eye drops 07-06 00:00: 00 cromolyn 4 2021-0 No 12% % eye drops 07-06 00:00: 00 cromolyn 4 2021-0 No 12% % eye drops 07-06 00:00: 00 cromolyn 4 2021-0 No 12% % eye drops 07-06 00:00: 00 &lt 2022-0 No 20 8- 00:00: 00 Dose 2-0 No Unknown 8- 00:00: 00 &lt 2022-0 No 20 8- 00:00: 00 Dose 2-0 No Unknown 8- 00:00: 00 &lt 2022-0 No 20 8- 00:00: 00 Dose 2-0 No Unknown 8- 00:00: 00 &lt 2022-0 No 20 8- 00:00: 00 Dose 2-0 No Unknown 8- 00:00: 00 &lt 2022-0 No 20 8- 00:00: 00 Dose 2-0 No Unknown 8 00:00: 00 Dose 2-0 No Unknown 8 00:00: 00 Dose 2022-0 No Unknown 8 00:00: 00 &lt 2022-0 No 20 8- 00:00: 00 cromolyn 4 2-0 No 12% % eye drops 8 00:00: 00 Dose 2-0 No Unknown 8 00:00: 00 Dose 2-0 No Unknown 8 00:00: 00 Dose 2-0 No Unknown 8 00:00: 00 &lt 2022-0 No 20 8- 00:00: 00 cromolyn 4 2-0 No 12% % eye drops 06-27 00:00: 00 Dose 2-0 No Unknown 8 00:00: 00 Dose 2-0 No Unknown 06-27 [...] Unknown 06-27 00:00: 00 &lt 2022-0 No 6-27 00:00: [...] 2022-0 No 6-27 00:00: 00 TAKE 1 2-0 No TABLET BY 6-27 MOUTH TWICE 00:00: DAILY 00 &lt 2022-0 No 05-22 00:00: 00 &lt 2022-0 No 05-22 00:00: 00 &lt 2022-0 No 05-22 00:00: 00 TAKE 1 2-0 No TABLET BY 6-27 MOUTH TWICE 00:00: DAILY 00 &lt 2022-0 No 05-22 00:00: 00 &lt 2022-0 No 05-22 00:00: 00 TAKE 1 2-0 No TABLET [...] pantoprazol 2022-0 No 1mg e 40 mg - tablet,vesta 00:00: yed release 00 amoxicillin 2-0 No 2mg 500 mg - tablet 00:00: 00 metronidazo 2022-0 No 1mg le 500 mg 6- tablet 00:00: 00 clarithromy 2022-0 No 1mg [...] 00 sucralfate 2022-0 No 1gram 1 gram 5- tablet 00:00: 00 Dose 2022-0 No Unknown 5-26 00:00: 00 Dose 2-0 No Unknown 5- 00:00: 00 Dose 2-0 No Unknown 5- 00:00: 00 Dose 2-0 No Unknown 5- 00:00: 00 sucralfate 2-0 No 1gram 1 gram 5-26 tablet 00:00: 00 Dose 2-0 No Unknown 5- 00:00: 00 Dose 2-0 No Unknown 5- 00:00: 00 Dose 2-0 No Unknown 5- 00:00: 00 Dose 2-0 No Unknown 5- 00:00: 00 sucralfate 2021-0 No 1gram 1 gram 5-26 tablet 00:00: [...] 5- 00:00: 00 Dose 2-0 No Unknown 5-16 [...] 2020-1 No Unknown 2-23 00:00: 00 benzonatate 1-1 No 1mg 100 mg 2-23 capsule 00:00: 00 amoxicillin 1-1 No 1mg 875 2-23 mg-potassiu 00:00: m 00 clavulanate 125 mg tablet Dose 2020-1 No Unknown 2-23 00:00: 00 benzonatate 2020- No 1mg 100 mg 2-23 capsule 00:00: 00 amoxicillin 2020-1 No 1mg 875 2-23 mg-potassiu 00:00: m [...] mcg/actuati 00 on nasal spray,suspe nsion benzonatate 2020- No 1mg 100 mg 2-23 capsule 00:00: 00 benzonatate 2020- No 1mg 100 mg 2-23 capsule 00:00: 00 amoxicillin 2020-1 No 1mg 875 2-23 mg-potassiu 00:00: m [...] m 00 clavulanate 125 mg tablet amoxicillin 2020-11 No 1mg 875 1-01 mg-potassiu 00:00: m 00 clavulanate 125 mg tablet amoxicillin 2020-11 No 1mg 875 1-01 mg-potassiu 00:00: m 00 clavulanate 125 mg tablet Tessalon 2020-11 No 1mg Perles 100 0-30 mg capsule 00:00: 00 Tessalon 2020-11 No 1mg Perles 100 0-30 mg capsule 00:00: 00 Tessalon 2020-11 No 1mg Perles 100 0-30 mg capsule 00:00: 00 Tessalon 2020-11 No 1mg Perles 100 0-30 mg capsule 00:00: 00 Tessalon 2020-11 No 1mg Perles 100 0-30 mg capsule 00:00: 00 Tessalon 2020-11 No 1mg Perles 100 0-30 mg capsule [...] 00 release Flonase 1-0 No 1mcg/ac Allergy 8- tuation Relief 50 00:00: mcg/actuati 00 on nasal spray,suspe nsion Zyrtec-D 5 2020-0 No 1mg mg-120 mg 8-04 tablet,exte 00:00: nded 00 release Flonase 1-0 No 1mcg/ac Allergy 8- tuation Relief 50 00:00: mcg/actuati 00 on nasal spray,suspe nsion Zofran 4 mg 1-0 No 1mg tablet 6 00:00: 00 Tessalon 1-0 No 1mg Perles [...] unit) (1,000 00:00: unit) 00 capsule amoxicillin 1-0 No 1mg 875 5-01 mg-potassiu [...] mg tablet amoxicillin 2020-0 No 1mg 875 5-01 mg-potassiu 00:00: m 00 clavulanate 125 mg tablet amoxicillin 2020-0 No 1mg 875 5-01 mg-potassiu 00:00: m 00 clavulanate 125 mg tablet amoxicillin 2020-0 No 1mg 875 5-01 mg-potassiu 00:00: m [...] 1-0 No 1mg tablet 02-17 00:00: 00 amoxicillin 1-0 No 1mg 875 [...] 00 clavulanate 125 mg tablet ProAir HFA 2020-1 No 2mcg/ac 90 0-03 tuation mcg/actuati 00:00: on aerosol 00 inhaler prednisone 2020-1 No 1mg 20 mg 0-03 tablet 00:00: 00 hydroxyzine 2020-1 No 1mg HCl 25 mg 0-03 tablet 00:00: 00 ProAir HFA 2020-1 No 2mcg/ac 90 0-03 tuation mcg/actuati 00:00: on aerosol 00 inhaler prednisone 2020-1 No 1mg 20 mg 0-03 tablet 00:00: 00 hydroxyzine 2020-1 No 1mg HCl 25 mg 0-03 tablet 00:00: 00 ProAir HFA 2020-1 No 2mcg/ac 90 0-03 tuation mcg/actuati 00:00: on aerosol 00 inhaler prednisone 2020-1 No 1mg 20 mg 0-03 tablet 00:00: 00 hydroxyzine 2020-1 No 1mg HCl 25 mg 0-03 tablet 00:00: 00 ProAir HFA 2020-1 No 2mcg/ac 90 0-03 tuation mcg/actuati 00:00: on aerosol 00 inhaler prednisone 2020-1 No 1mg 20 mg 0-03 tablet 00:00: 00 hydroxyzine 2020-1 No 1mg HCl 25 mg 0-03 tablet 00:00: 00 ProAir HFA 2020-1 No 2mcg/ac 90 0-03 tuation mcg/actuati 00:00: on aerosol 00 inhaler prednisone 2020-1 No 1mg 20 mg 0-03 tablet 00:00: 00 hydroxyzine 2020-1 No 1mg HCl 25 mg 0-03 tablet 00:00: 00 ProAir HFA 2020-1 No 2mcg/ac 90 0-03 tuation mcg/actuati 00:00: on aerosol 00 inhaler prednisone 2020-1 No 1mg 20 mg 0-03 tablet 00:00: 00 hydroxyzine 2019-1 No 1mg HCl 25 mg 0-03 tablet 00:00: 00 Meloxicam Meloxicam 2019-0 2020- No [place] 1 tablet Common 9-10 10-10 [place] 00:00: 00:00 - [facility] 00 :00 [facility] aspirin 81 2020-0 Yes 81mg Take 81 mg U nivers mg chewable 5-22 by mouth ity of tablet 19:38: daily. [address] aspirin 81 2020-0 Yes 81mg Take 81 mg U nivers mg chewable 5-22 by mouth ity of tablet 19:38: daily. [address] aspirin 81 2020-0 Yes 81mg Take 81 mg U nivers mg chewable 5-22 by mouth ity of tablet 19:38: daily. [address] aspirin 81 2020-0 Yes 81mg Take 81 mg U nivers mg chewable 5-22 by mouth ity of tablet 19:38: daily. [address] aspirin 81 2020-0 Yes 81mg Take 81 mg U nivers mg chewable 5-22 by mouth ity of tablet 19:38: daily. [address] Augmentin 2020-0 No 1mg 875 mg-125 [...] 10 mg 3-09 capsule 00:00: 00 ibuprofen 2018-0 Yes [id number] 600mg Take 1 U nivers 600 mg 6-24 tablet by ity of tablet 00:00: mouth [place] 00 every 6 Medical (six) Branch hours as needed for Pain (scale 4-6). phenazopyri 0 Yes [id number] 200mg Take 1 Univers dine 200 mg 6-24 tablet by ity of tablet 00:00: mouth 3 (three) Medical times Branch daily as needed for Pain. ibuprofen 0 Yes [id number] 600mg Take 1 U nivers 600 mg 6-24 tablet by ity of tablet 00:00: mouth [place] 00 every 6 Medical (six) Branch hours as needed for Pain (scale 4-6). phenazopyri 2019-0 Yes [id number] 200mg Take 1 Univers dine 200 mg 6-24 tablet by ity of tablet 00:00: mouth 3 (three) Medical times Branch daily as needed for Pain. ibuprofen 0 Yes [id number] 600mg Take 1 U nivers 600 mg 6-24 tablet by ity of tablet 00:00: mouth [place] 00 every 6 Medical (six) Branch hours as needed for Pain (scale 4-6). phenazopyri 2019-0 Yes [id number] 200mg Take 1 Univers dine 200 mg 6-24 tablet by ity of tablet 00:00: mouth 3 00 (three) Medical times Branch daily as needed for Pain. ibuprofen 2018-0 Yes [id number] 600mg Take 1 U nivers 600 mg 6-24 tablet by ity of tablet 00:00: mouth [place] 00 every 6 Medical (six) Branch hours as needed for Pain (scale 4-6). phenazopyri 2019-0 Yes [id number] 200mg Take 1 Univers dine 200 mg 6-24 tablet by ity of tablet 00:00: mouth 3 [place] 00 (three) Medical times Branch daily as needed for Pain. ibuprofen 2018-0 Yes [id number] 600mg Take 1 U nivers 600 mg 6-24 tablet by ity of tablet 00:00: mouth [place] 00 every 6 Medical (six) Branch hours as needed for Pain (scale 4-6). phenazopyri 2019-0 Yes [id number] 200mg Take 1 Univers dine 200 mg 6-24 tablet by ity of tablet 00:00: mouth 3 [place] 00 (three) Medical times Branch daily as needed for Pain. ibuprofen 2018-0 Yes [id number] 600mg Take 1 U nivers 600 mg 6-24 tablet by ity of tablet 00:00: mouth [place] 00 every 6 Medical (six) Branch hours as needed for Pain (scale 4-6). phenazopyri 2018-0 Yes [id number] 200mg Take 1 Univers dine 200 mg 6-24 tablet by ity of tablet 00:00: mouth 3 [place] 00 (three) Medical times Branch daily as needed for Pain. ibuprofen 2018-0 Yes [id number] 600mg Take 1 U nivers 600 mg 6-24 tablet by ity of tablet 00:00: mouth [place] 00 every 6 Medical (six) Branch hours as needed for Pain (scale 4-6). phenazopyri 2018-0 Yes [id number] 200mg Take 1 Univers dine 200 mg 6-24 tablet by ity of tablet 00:00: mouth 3 [place] 00 (three) Medical times Branch daily as needed for Pain. ibuprofen 2018-0 Yes [id number] 600mg Take 1 U nivers 600 mg 6-24 tablet by ity of tablet 00:00: mouth [place] 00 every 6 Medical (six) Branch hours as needed for Pain (scale 4-6). phenazopyri 2019-0 Yes [id number] 200mg Take 1 Univers dine 200 mg 6-24 tablet by ity of tablet 00:00: mouth 3 [place] 00 (three) Medical times Branch daily as needed for Pain. ibuprofen 2018-0 Yes [id number] 600mg Take 1 U nivers 600 mg 6-24 tablet by ity of tablet 00:00: mouth [place] 00 every 6 Medical (six) Branch hours as needed for Pain (scale 4-6). phenazopyri 2019-0 Yes [id number] 200mg Take 1 Univers dine 200 mg 6-24 tablet by ity of tablet 00:00: mouth 3 [place] 00 (three) Medical times Branch daily as needed for Pain. ibuprofen 2019-0 Yes [id number] 600mg Take 1 U nivers 600 mg 6-24 tablet by ity of tablet 00:00: mouth [place] 00 every 6 Medical (six) Branch hours as needed for Pain (scale 4-6). phenazopyri 2019-0 Yes [id number] 200mg Take 1 Univers dine 200 mg 6-24 tablet by ity of tablet 00:00: mouth 3 [place] 00 (three) Medical times Branch daily as needed for Pain. ibuprofen 2018-0 Yes [id number] 600mg Take 1 U nivers 600 mg 6-24 tablet by ity of tablet 00:00: mouth [place] 00 every 6 Medical (six) Branch hours as needed for Pain (scale 4-6). phenazopyri 2019-0 Yes [id number] 200mg Take 1 Univers dine 200 mg 6-24 tablet by ity of tablet 00:00: mouth 3 [place] 00 (three) Medical times Branch daily as needed for Pain. ibuprofen 2018-0 Yes [id number] 600mg Take 1 U nivers 600 mg 6-24 tablet by ity of tablet 00:00: mouth [place] 00 every 6 Medical (six) Branch hours as needed for Pain (scale 4-6). phenazopyri 2019-0 Yes [id number] 200mg Take 1 Univers dine 200 mg 6-24 tablet by ity of tablet 00:00: mouth 3 [place] 00 (three) Medical times Branch daily as needed for Pain. ibuprofen 2018-0 Yes [id number] 600mg Take 1 U nivers 600 mg 6-24 tablet by ity of tablet 00:00: mouth [place] 00 every 6 Medical (six) Branch hours as needed for Pain (scale 4-6). phenazopyri 2019-0 Yes [id number] 200mg Take 1 Univers dine 200 mg 6-24 tablet by ity of tablet 00:00: mouth 3 [place] 00 (three) Medical times Branch daily as needed for Pain. ibuprofen 2019-0 Yes [id number] 600mg Take 1 U nivers 600 mg 6-24 tablet by ity of tablet 00:00: mouth [place] 00 every 6 Medical (six) Branch hours as needed for Pain (scale 4-6). phenazopyri 2019-0 Yes [id number] 200mg Take 1 Univers dine 200 mg 6-24 tablet by ity of tablet 00:00: mouth 3 [place] 00 (three) Medical times Branch daily as needed for Pain. ibuprofen 0 Yes [id number] 600mg Take 1 U nivers 600 mg 6-24 tablet by ity of tablet 00:00: mouth [place] 00 every 6 Medical (six) Branch hours as needed for Pain (scale 4-6). phenazopyri 0 Yes [id number] 200mg Take 1 Univers dine 200 mg 6-24 tablet by ity of tablet 00:00: mouth 3 [place] 00 (three) Medical times Branch daily as needed for Pain. ibuprofen 0 Yes [id number] 600mg Take 1 U nivers 600 mg 6-24 tablet by ity of tablet 00:00: mouth [place] 00 every 6 Medical (six) Branch hours as needed for Pain (scale 4-6). phenazopyri 0 Yes [id number] 200mg Take 1 Univers dine 200 mg 6-24 tablet by ity of tablet 00:00: mouth 3 [place] 00 (three) Medical times Branch daily as needed for Pain. ibuprofen 0 Yes [id number] 600mg Take 1 U nivers 600 mg 6-24 tablet by ity of tablet 00:00: mouth [place] 00 every 6 Medical (six) Branch hours as needed for Pain (scale 4-6). phenazopyri 2018-0 Yes [id number] 200mg Take 1 Univers dine 200 mg 6-24 tablet by ity of tablet 00:00: mouth 3 [place] 00 (three) Medical times Branch daily as needed for Pain. ibuprofen 2018-0 Yes [id number] 600mg Take 1 U nivers 600 mg 6-24 tablet by ity of tablet 00:00: mouth [place] 00 every 6 Medical (six) Branch hours as needed for Pain (scale 4-6). phenazopyri 2019-0 Yes [id number] 200mg Take 1 Univers dine 200 mg 6-24 tablet by ity of tablet 00:00: mouth 3 [place] 00 (three) Medical times Branch daily as needed for Pain. ibuprofen 2018-0 Yes [id number] 600mg Take 1 U nivers 600 mg 6-24 tablet by ity of tablet 00:00: mouth [place] 00 every 6 Medical (six) Branch hours as needed for Pain (scale 4-6). phenazopyri 2018-0 Yes [id number] 200mg Take 1 Univers dine 200 mg 6-24 tablet by ity of tablet 00:00: mouth 3 [place] 00 (three) Medical times Branch daily as needed for Pain. ibuprofen Yes [id number] 600mg Take 1 U nivers 600 mg 6-24 tablet by ity of tablet 00:00: mouth [place] 00 every 6 Medical (six) Branch hours as needed for Pain (scale 4-6). phenazopyri Yes [id number] 200mg Take 1 Univers dine 200 mg 6-24 tablet by ity of tablet 00:00: mouth 3 [place] 00 (three) Medical times Branch daily as needed for Pain. ibuprofen 0 Yes [id number] 600mg Take 1 U nivers 600 mg 6-24 tablet by ity of tablet 00:00: mouth [place] 00 every 6 Medical (six) Branch hours as needed for Pain (scale 4-6). phenazopyri 0 Yes [id number] 200mg Take 1 Univers dine 200 mg 6-24 tablet by ity of tablet 00:00: mouth 3 [place] 00 (three) Medical times Branch daily as needed for Pain. phenazopyri 0 Yes [id number] 200mg Take 1 Univers dine 200 mg 6-24 tablet by ity of tablet 00:00: mouth 3 [place] 00 (three) Medical times Branch daily as needed for Pain. ibuprofen 0 Yes [id number] 600mg Take 1 U nivers 600 mg 6-24 tablet by ity of tablet 00:00: mouth [place] 00 every 6 Medical (six) Branch hours as needed for Pain (scale 4-6). phenazopyri 0 Yes [id number] 200mg Take 1 Univers dine 200 mg 6-24 tablet by ity of tablet 00:00: mouth 3 [place] 00 (three) Medical times Branch daily as needed for Pain. ibuprofen 0 Yes [id number] 600mg Take 1 U nivers 600 mg 6-24 tablet by ity of tablet 00:00: mouth [place] 00 every 6 Medical (six) Branch hours as needed for Pain (scale 4-6). aspirin 81 2019-0 Yes 81mg Take 81 mg U nivers mg chewable 4-05 by mouth ity of tablet 21:37: daily. [address] Branch aspirin 81 2019-0 Yes 81mg Take 81 mg U nivers mg chewable 4-05 by mouth ity of tablet 21:37: daily. [address] Branch aspirin 81 2019-0 Yes 81mg Take 81 mg U nivers mg chewable 4-05 by mouth ity of tablet 21:37: daily. [address] Branch aspirin 81 2019-0 Yes 81mg Take 81 mg U nivers mg chewable 4-05 by mouth ity of tablet 21:37: daily. [place] [address] Medical Branch aspirin 81 2019-0 Yes 81mg Take 81 mg U nivers mg chewable 4-05 by mouth ity of tablet 21:37: daily. [address] Branch aspirin 81 2019-0 Yes 81mg Take 81 mg U nivers mg chewable 4-05 by mouth ity of tablet 21:37: daily. [address] Branch aspirin 81 2019-0 Yes 81mg Take 81 mg U nivers mg chewable 4-05 by mouth ity of tablet 21:37: daily. [address] Branch aspirin 81 2019-0 Yes 81mg Take 81 mg U nivers mg chewable 4-05 by mouth ity of tablet 21:37: daily. [address] Branch aspirin 81 2019-0 Yes 81mg Take 81 mg U nivers mg chewable 4-05 by mouth ity of tablet 21:37: daily. [address] Branch aspirin 81 2019-0 Yes 81mg Take 81 mg U nivers mg chewable 4-05 by mouth ity of tablet 21:37: daily. [address] Branch aspirin 81 2019-0 Yes 81mg Take 81 mg U nivers mg chewable 4-05 by mouth ity of tablet 21:37: daily. [address] Branch aspirin 81 2019-0 Yes 81mg Take 81 mg U nivers mg chewable 4-05 by mouth ity of tablet 21:37: daily. [address] Branch aspirin 81 2019-0 Yes 81mg Take 81 mg U nivers mg chewable 4-05 by mouth ity of tablet 21:37: daily. [address] Branch aspirin 81 2019-0 Yes 81mg Take 81 mg U nivers mg chewable 4-05 by mouth ity of tablet 21:37: daily. [address] Branch aspirin 81 2019-0 Yes 81mg Take 81 mg U nivers mg chewable 4-05 by mouth ity of tablet 21:37: daily. [address] aspirin 81 2019-0 Yes 81mg Take 81 mg U nivers mg chewable 4-05 by mouth ity of tablet 21:37: daily. [address] aspirin 81 2019-0 Yes 81mg Take 81 mg U nivers mg chewable 4-05 by mouth ity of tablet 21:37: daily. [address] aspirin 81 2019-0 Yes 81mg Take 81 mg U nivers mg chewable 4-05 by mouth ity of tablet 21:37: daily. [address] erythromyci 2017-11 No 5(0.5 n 5 mg/gram 1-15 %) (0.5 %) eye 00:00: ointment 00 erythromyci 2017-11 No 5(0.5 n 5 mg/gram 1-15 %) (0.5 %) eye 00:00: ointment erythromyci 2017-11 No 5(0.5 n 5 mg/gram 1-15 %) (0.5 %) eye 00:00: ointment 00 erythromyci 2017-11 No 5(0.5 n 5 mg/gram 1-15 %) (0.5 %) eye 00:00: ointment 00 erythromyci 2017-11 No 5(0.5 n 5 mg/gram 1-15 %) (0.5 %) eye 00:00: ointment erythromyci 2017-11 No 5(0.5 n 5 mg/gram [...] 10 mg 0-24 tablet 00:00: 00 loratadine 2018-1 No 1mg 10 mg 0-24 tablet 00:00: 00 prednisone 2018-1 No mg 20 mg 0-24 tablet 00:00: 00 promethazin 2018- No 10mg/5 e-DM 6.25 0-24 mL mg-15 mg/5 00:00: mL syrup 00 prednisone 2018- No mg 20 mg 0-24 tablet 00:00: 00 promethazin 2017- No 10mg/5 e-DM 6.25 0-24 mL mg-15 mg/5 00:00: mL syrup 00 loratadine 2017- No 1mg 10 mg 0-24 tablet 00:00: 00 prednisone 2018- No mg 20 mg 0-24 tablet 00:00: 00 promethazin 2017- No 10mg/5 e-DM 6.25 0-24 mL mg-15 mg/5 00:00: mL syrup 00 loratadine 2017- No 1mg 10 mg 0-24 tablet 00:00: 00 prednisone 2018-1 No mg 20 mg 0-24 tablet 00:00: 00 promethazin 2017- No 10mg/5 e-DM 6.25 0-24 mL mg-15 mg/5 00:00: mL syrup 00 loratadine 2017- No 1mg 10 mg 0-24 tablet 00:00: 00 prednisone 2018-1 No mg 20 mg 0-24 tablet 00:00: 00 promethazin 2017-1 No 10mg/5 e-DM 6.25 0-24 mL mg-15 mg/5 00:00: mL syrup 00 loratadine 2018- No 1mg 10 mg 0-24 tablet 00:00: 00 prednisone 2017-1 No mg 20 mg 0-24 tablet 00:00: 00 promethazin 2017-1 No 10mg/5 e-DM 6.25 0-24 mL mg-15 [...] by ity of mg tablet 00:00: mouth ([facility]) Medical times Branch daily as needed for Abdominal pain for up to 30 doses. dicyclomine 2018-0 Yes 20mg Take 1 Univ ers (BENTYL) 20 6-21 tablet by ity of mg tablet 00:00: mouth ([facility]) Medical times Branch daily as needed for Abdominal pain for up to 30 doses. dicyclomine 2018-0 Yes 20mg Take 1 Univ ers (BENTYL) 20 6-21 tablet by ity of mg tablet 00:00: mouth ([facility]) Medical times Branch daily as needed for Abdominal pain for up to 30 doses. dicyclomine 2018-0 Yes 20mg Take 1 Univ ers (BENTYL) 20 6-21 tablet by ity of mg tablet 00:00: mouth ([facility]) Medical times Branch daily as needed for [...] by ity of mg tablet 00:00: mouth ([facility]) Medical times Branch daily as needed for Abdominal pain for up to 30 doses. dicyclomine 2018-0 Yes 20mg Take 1 Univ ers (BENTYL) 20 6-21 tablet by ity of mg tablet 00:00: mouth ([facility]) Medical times Branch daily as needed for Abdominal pain for up to 30 doses. dicyclomine 2018-0 Yes 20mg Take 1 Univ ers (BENTYL) 20 6-21 tablet by ity of mg tablet 00:00: mouth ([facility]) Medical times Branch daily as needed for Abdominal pain for up to 30 doses. dicyclomine 2018-0 Yes 20mg Take 1 Univ ers (BENTYL) 20 6-21 tablet by ity of mg tablet 00:00: mouth ([facility]) Medical times Branch daily as needed for Abdominal pain for up to 30 doses. dicyclomine 2018-0 Yes 20mg Take 1 Univ ers (BENTYL) 20 6-21 tablet by ity of mg tablet 00:00: mouth ([facility]) Medical times Branch daily as needed for Abdominal pain for up to 30 doses. dicyclomine 2018-0 Yes 20mg Take 1 Univ ers (BENTYL) 20 6-21 tablet by ity of mg tablet 00:00: mouth ([facility]) Medical times Branch daily as needed for Abdominal pain for up to 30 doses. dicyclomine 2018-0 Yes 20mg Take 1 Univ ers (BENTYL) 20 6-21 tablet by ity of mg tablet 00:00: mouth ([facility]) Medical times Branch daily as needed for [...] by ity of mg tablet 00:00: mouth ([facility]) Medical times Branch daily as needed for Abdominal pain for up to 30 doses. dicyclomine 2018-0 Yes 20mg Take 1 Univ ers (BENTYL) 20 6-21 tablet by ity of mg tablet 00:00: mouth ([facility]) Medical times Branch daily as needed for Abdominal pain for up to 30 doses. dicyclomine 2018-0 Yes 20mg Take 1 Univ ers (BENTYL) 20 6-21 tablet by ity of mg tablet 00:00: mouth ([facility]) Medical times Branch daily as needed for Abdominal pain for up to 30 doses. dicyclomine 2018-0 Yes 20mg Take 1 Univ ers (BENTYL) 20 6-21 tablet by ity of mg tablet 00:00: mouth ([facility]) Medical times Branch daily as needed for [...] by ity of mg tablet 00:00: mouth ([facility]) Medical times Branch daily as needed for [...] by ity of mg tablet 00:00: mouth ([facility]) Medical times Branch daily as needed for Abdominal pain for up to 30 doses. dicyclomine 2017-0 Yes 20mg Take 1 Univ ers (BENTYL) 20 6-21 tablet by ity of mg tablet 00:00: mouth 4 [place] 00 (four) Medical times Branch daily as needed for Abdominal pain for up to 30 doses. promethazin 2015-0 No 12mg e 12.5 mg 2-16 tablet 00:00: 00 promethazin 2015-0 No 12mg e 12.5 mg 2-16 tablet 00:00: 00 promethazin 2016-0 No 12mg e 12.5 mg 2-16 tablet 00:00: 00 promethazin 2016-0 No 12mg e 12.5 mg 2-16 tablet 00:00: 00 promethazin 2016-0 No 12mg e 12.5 mg 2-16 tablet 00:00: 00 promethazin 2016-0 No 12mg e 12.5 mg 2-16 tablet 00:00: 00 Zithromax 2014- No 1mg Z-Carlos 250 1-12 mg tablet [...] mg/5 00:00: mL syrup 00 Bromfed DM 2015- No 10mg/5 2 mg-30 1-11 mL mg-10 mg/5 00:00: mL syrup 00 Diclofenac Diclofenac Yes Robert not Common Sodium Sodium O[place] defined [facility] Artificial Artificial Yes Robert not Common Tears Tears [facility] defined [facility] Yes Robert not Comm on [facility] defined [facility] MethylPREDN MethylPREDN Yes Robert not Common ISolone ISolone [place] defined [facility] Valacyclovi Valacyclovi Yes Robert not Common r HCl r HCl O[facility] defined [facility] Aspirin Low Aspirin Low Yes Robert not Common Dose Dose [place] defined [facility] PredniSONE PredniSONE Yes Robert not Common O[facility] defined [facility] Amoxicillin Amoxicillin Yes Robert not Common -Pot -Pot Oro defined [facility] Immunizations Ordered Immunization Filled Immunization [...] Source Performed INSURANCE CORRESPONDENCE 2021-02-22 05:01:00 [facility] AUTHORIZATION FOR RELEASE 2021-01-25 06:01:00 Doctor Unassigned, [facility] Name [facility] EXTERNAL PROVIDER RECORDS 2020-02-16 05:01:00 Doctor Unassigned, [facility] Name [facility] EXTERNAL PROVIDER RECORDS 2020-01-29 06:01:00 Doctor Unassigned, [facility] Name [facility] EXTERNAL PROVIDER RECORDS 2020-01-19 06:01:00 Doctor Unassigned, [facility] Name [facility] EXTERNAL PROVIDER RECORDS 2019-08-06 05:01:00 Doctor Unassigned, [facility] Name [facility] Plan of Care Planned Activity Planned Date Details Comments Source Goal Plan of Care Note [code = 93792-8] Goal Plan of Care Note [code = 24154-4] Goal Plan of Care Note [code = 05443-2] Goal Plan of Care Note [code = 13436-7] Goal Plan of Care Note [code = 24384-2] Goal Plan of Care Note [code = 63822-6] Goal Plan of Care Note [code = 92055-4] Goal Plan of Care Note [code = 51258-8] Goal Plan of Care Note [code = 95755-2] Goal Plan of Care Note [code = 79562-9] Goal Plan of Care Note [code = 14104-2] Goal Plan of Care Note [code = 52527-0] Goal Plan of Care Note [code = 21902-3] Goal Plan of Care Note [code = 52809-3] Goal Plan of Care Note [code = 15988-1] Goal Plan of Care Note [code = 28801-0] Goal Plan of Care Note [code = 02486-9] Goal Plan of Care Note [code = 52933-7] Goal Plan of Care Note [code = 20273-2] Goal Plan of Care Note [code = 56928-1] Goal Plan of Care Note [code = 53499-4] Goal Plan of Care Note [code = 29708-5] Goal Plan of Care Note [code = 79326-3] Goal Plan of Care Note [code = 48267-5] Goal Plan of Care Note [code = 28244-2] Goal Plan of Care Note [code = 27275-6] Goal Plan of Care Note [code = 84865-0] Goal Plan of Care Note [code = 60652-6] Goal Plan of Care Note [code = 46389-0] Goal Plan of Care Note [code = 65708-1] Goal Plan of Care Note [code = 85727-4] Goal Plan of Care Note [code = 84967-0] Goal Plan of Care Note [code = 96007-4] Goal Plan of Care Note [code = 06176-5] Goal Plan of Care Note [code = 71680-4] Goal Plan of Care Note [code = 10697-4] Goal Plan of Care Note [code = 89643-3] Goal Plan of Care Note [code = 13871-5] Goal Plan of Care Note [code = 65925-4] Goal Plan of Care Note [code = 90458-2] Goal Plan of Care Note [code = 97347-9] Goal Plan of Care Note [code = 95317-5] Goal Plan of Care Note [code = 03647-4] Goal Plan of Care Note [code = 32435-5] Goal Plan of Care Note [code = 65575-9] Goal Plan of Care Note [code = 46275-3] Goal Plan of Care Note [code = 51323-1] Goal Plan of Care Note [code = 08078-6] Goal Plan of Care Note [code = 86594-8] Goal Plan of Care Note [code = 52433-3] Goal Plan of Care Note [code = 30846-1] Goal Plan of Care Note [code = 66042-4] Goal Plan of Care Note [code = 72035-8] Goal Plan of Care Note [code = 14733-4] Goal Plan of Care Note [code = 58342-6] Goal Plan of Care Note [code = 59739-5] Goal Plan of Care Note [code = 70622-8] Goal Plan of Care Note [code = 24536-2] Goal Plan of Care Note [code = 06852-6] Goal Plan of Care Note [code = 60171-6] Goal Plan of Care Note [code = 16010-2] Goal Plan of Care Note [code = 80884-4] Goal Plan of Care Note [code = 23993-6] Goal Plan of Care Note [code = 21390-1] Goal Plan of Care Note [code = 69954-0] Goal Plan of Care Note [code = 18424-4] Goal Plan of Care Note [code = 86456-9] Goal Plan of Care Note [code = 10872-2] Goal Plan of Care Note [code = 55813-6] Goal Plan of Care Note [code = 30697-1] Goal Plan of Care Note [code = 62854-2] Goal Plan of Care Note [code = 42340-3] Goal Plan of Care Note [code = 99522-5] Goal Plan of Care Note [code = 82455-4] Goal Plan of Care Note [code = 07492-8] Goal Plan of Care Note [code = 15408-2] Goal Plan of Care Note [code = 21263-0] Goal Plan of Care Note [code = 44776-4] Goal Plan of Care Note [code = 57279-4] Goal Plan of Care Note [code = 33907-9] Goal Plan of Care Note [code = 29735-0] Goal Plan of Care Note [code = 82291-6] Goal Plan of Care Note [code = 22381-1] Goal Plan of Care Note [code = 93274-0] Goal Plan of Care Note [code = 88308-0] Goal Plan of Care Note [code = 93990-7] Goal Plan of Care Note [code = 69596-4] Goal Plan of Care Note [code = 96218-4] Goal Plan of Care Note [code = 37425-6] Goal Plan of Care Note [code = 22529-9] Goal Plan of Care Note [code = 54415-1] Goal Plan of Care Note [code = 34860-5] Goal Plan of Care Note [code = 15330-4] Goal Plan of Care Note [code = 32692-0] Goal Plan of Care Note [code = 80551-4] Goal Plan of Care Note [code = 72657-7] Goal Plan of Care Note [code = 90568-4] Goal Plan of Care Note [code = 37748-0] Goal Plan of Care Note [code = 43992-4] Goal Plan of Care Note [code = 12318-4] Goal Plan of Care Note [code = 63290-9] Goal Plan of Care Note [code = 69124-5] Goal Plan of Care Note [code = 20869-2] Goal Plan of Care Note [code = 23675-3] Goal Plan of Care Note [code = 65936-8] Goal Plan of Care Note [code = 99633-7] Goal Plan of Care Note [code = 37469-8] Goal Plan of Care Note [code = 12956-0] Goal Plan of Care Note [code = 65882-3] Goal Plan of Care Note [code = 77381-1] Goal Plan of Care Note [code = 56144-2] Goal Plan of Care Note [code = 83967-8] Goal Plan of Care Note [code = 90922-3] Goal Plan of Care Note [code = 45339-8] Goal Plan of Care Note [code = 62737-9] Goal Plan of Care Note [code = 75587-0] Goal Plan of Care Note [code = 88308-5] Goal Plan of Care Note [code = 90256-3] Goal Plan of Care Note [code = 79006-8] Goal Plan of Care Note [code = 40096-7] Goal Plan of Care Note [code = 73823-3] Goal Plan of Care Note [code = 21467-8] Goal Plan of Care Note [code = 94118-5] Goal Plan of Care Note [code = 26041-8] Goal Plan of Care Note [code = 02382-0] Goal Plan of Care Note [code = 13948-2] Goal Plan of Care Note [code = 69161-2] Goal Plan of Care Note [code = 02851-6] Goal Plan of Care Note [code = 58285-3] Goal Plan of Care Note [code = 42953-2] Goal Plan of Care Note [code = 29421-1] Goal Plan of Care Note [code = 98095-0] Goal Plan of Care Note [code = 99803-9] Goal Plan of Care Note [code = 64836-1] Goal Plan of Care Note [code = 70070-3] Goal Plan of Care Note [code = 33562-7] Goal Plan of Care Note [code = 34109-3] Goal Plan of Care Note [code = 72356-0] Goal Plan of Care Note [code = 30679-0] Goal Plan of Care Note [code = 53915-3] Goal Plan of Care Note [code = 97305-0] Goal Plan of Care Note [code = 49847-5] Goal Plan of Care Note [code = 37399-5] Goal Plan of Care Note [code = 41777-7] Goal Plan of Care Note [code = 47580-1] Goal Plan of Care Note [code = 55538-3] Goal Plan of Care Note [code = 44220-5] Goal Plan of Care Note [code = 29447-5] Goal Plan of Care Note [code = 74566-3] Goal Plan of Care Note [code = 17049-5] Goal Plan of Care Note [code = 29542-8] Goal Plan of Care Note [code = 59876-5] Goal Plan of Care Note [code = 78733-9] Goal Plan of Care Note [code = 74797-2] Goal Plan of Care Note [code = 31166-9] Goal Plan of Care Note [code = 63032-6] Goal Plan of Care Note [code = 34853-0] Goal Plan of Care Note [code = 27090-9] Goal Plan of Care Note [code = 40520-1] Goal Plan of Care Note [code = 85391-7] Goal Plan of Care Note [code = 21015-6] Goal Plan of Care Note [code = 92727-7] Goal Plan of Care Note [code = 94450-4] Goal Plan of Care Note [code = 41246-7] Goal Plan of Care Note [code = 64977-8] Goal Plan of Care Note [code = 28978-6] Goal Plan of Care Note [code = 38078-0] Goal Plan of Care Note [code = 91949-6] Goal Plan of Care Note [code = 16956-0] Goal Plan of Care Note [code = 92824-8] Goal Plan of Care Note [code = 75832-5] Goal Plan of Care Note [code = 33117-2] Goal Plan of Care Note [code = 39689-8] Goal Plan of Care Note [code = 54527-0] Goal Plan of Care Note [code = 80552-7] Goal Plan of Care Note [code = 35234-5] Goal Plan of Care Note [code = 21402-3] Goal Plan of Care Note [code = 70617-5] Goal Plan of Care Note [code = 54758-7] Goal Plan of Care Note [code = 23446-9] Goal Plan of Care Note [code = 50405-6] Goal Plan of Care Note [code = 29986-8] Goal Plan of Care Note [code = 34093-7] Goal Plan of Care Note [code = 24337-3] Goal Plan of Care Note [code = 19016-0] Goal Plan of Care Note [code = 21023-7] Goal Plan of Care Note [code = 17486-5] Goal Plan of Care Note [code = 05070-2] Goal Plan of Care Note [code = 43541-7] Goal Plan of Care Note [code = 41806-7] Goal Plan of Care Note [code = 27341-0] Goal Plan of Care Note [code = 09777-7] Goal Plan of Care Note [code = 58538-6] Goal Plan of Care Note [code = 24061-6] Goal Plan of Care Note [code = 23259-7] Goal Plan of Care Note [code = 45513-4] Goal Plan of Care Note [code = 68760-8] Goal Plan of Care Note [code = 93179-6] Goal Plan of Care Note [code = 16744-9] Goal Plan of Care Note [code = 27749-4] Goal Plan of Care Note [code = 99463-4] Goal Plan of Care Note [code = 96363-0] Goal Plan of Care Note [code = 29169-9] Goal Plan of Care Note [code = 48491-9] Goal Plan of Care Note [code = 30933-1] Goal Plan of Care Note [code = 50934-2] Goal Plan of Care Note [code = 75465-7] Goal Plan of Care Note [code = 49785-5] Goal Plan of Care Note [code = 19560-4] Goal Plan of Care Note [code = 03674-5] Goal Plan of Care Note [code = 64365-6] Goal Plan of Care Note [code = 99474-5] Goal Plan of Care Note [code = 94034-9] Goal Plan of Care Note [code = 73485-9] Goal Plan of Care Note [code = 81077-7] Goal Plan of Care Note [code = 27663-6] Goal Plan of Care Note [code = 70504-0] Goal Plan of Care Note [code = 83791-9] Goal Plan of Care Note [code = 00464-7] Goal Plan of Care Note [code = 32613-5] Goal Plan of Care Note [code = 09077-2] Goal Plan of Care Note [code = 11429-0] Goal Plan of Care Note [code = 73095-7] Goal Plan of Care Note [code = 13274-6] Goal Plan of Care Note [code = 19378-1] Goal Plan of Care Note [code = 98586-2] Goal Plan of Care Note [code = 93102-2] Goal Plan of Care Note [code = 50574-9] Goal Plan of Care Note [code = 74903-2] Goal Plan of Care Note [code = 67699-7] Goal Plan of Care Note [code = 12838-8] Goal Plan of Care Note [code = 00302-4] Goal Plan of Care Note [code = 16848-3] Goal Plan of Care Note [code = 02317-2] Goal Plan of Care Note [code = 67828-3] Goal Plan of Care Note [code = 69027-2] Goal Plan of Care Note [code = 74408-6] Goal Plan of Care Note [code = 50268-7] Goal Plan of Care Note [code = 12036-7] Goal Plan of Care Note [code = 38774-2] Goal Plan of Care Note [code = 43744-0] Goal Plan of Care Note [code = 40241-0] Goal Plan of Care Note [code = 27487-2] Goal Plan of Care Note [code = 18358-3] Goal Plan of Care Note [code = 82192-1] Goal Plan of Care Note [code = 23308-9] Goal Plan of Care Note [code = 51938-6] Goal Plan of Care Note [code = 39643-1] Goal Plan of Care Note [code = 42796-6] Goal Plan of Care Note [code = 70933-6] Goal Plan of Care Note [code = 04281-9] Goal Plan of Care Note [code = 63246-4] Goal Plan of Care Note [code = 82456-0] Goal Plan of Care Note [code = 63751-7] Goal Plan of Care Note [code = 15525-6] Goal Plan of Care Note [code = 56405-0] Goal Plan of Care Note [code = 19209-8] Goal Plan of Care Note [code = 08077-3] Goal Plan of Care Note [code = 51517-0] Goal Plan of Care Note [code = 77448-5] Goal Plan of Care Note [code = 03600-2] Goal Plan of Care Note [code = 04252-4] Goal Plan of Care Note [code = 35643-1] Goal Plan of Care Note [code = 61220-5] Goal Plan of Care Note [code = 69090-8] Goal Plan of Care Note [code = 57528-1] Goal Plan of Care Note [code = 70400-2] Goal Plan of Care Note [code = 76388-6] Goal Plan of Care Note [code = 64671-1] Goal Plan of Care Note [code = 35425-1] Goal Plan of Care Note [code = 56168-1] Goal Plan of Care Note [code = 19119-9] Goal Plan of Care Note [code = 32745-6] Goal Plan of Care Note [code = 39213-4] Goal Plan of Care Note [code = 52919-1] Goal Plan of Care Note [code = 77332-7] Goal Plan of Care Note [code = 94812-1] Goal Plan of Care Note [code = 25778-8] Goal Plan of Care Note [code = 12113-3] Goal Plan of Care Note [code = 88498-7] Goal Plan of Care Note [code = 10077-5] Goal Plan of Care Note [code = 64896-0] Goal Plan of Care Note [code = 14245-3] Goal Plan of Care Note [code = 95716-8] Goal Plan of Care Note [code = 45850-6] Goal Plan of Care Note [code = 00961-6] Goal Plan of Care Note [code = 64935-4] Goal Plan of Care Note [code = 69308-8] Goal Plan of Care Note [code = 21357-6] Goal Plan of Care Note [code = 29550-7] Goal Plan of Care Note [code = 12310-9] Goal Plan of Care Note [code = 22379-1] Goal Plan of Care Note [code = 66399-4] Goal Plan of Care Note [code = 49516-0] Goal Plan of Care Note [code = 89337-9] Encounters Start End Encounter Admission Attending Care Care Encounter Source Date/Time Date/Time Type Type Clinicians Facility Department ID 2023-06-25 Outpatient STLMLC STLMLC [id number] Common 16:05:00 [id number] [facility] 2023-06-21 Outpatient STLMLC STLMLC [id number] Common 14:33:00 [id number] [facility] 2023-03-15 Outpatient STLMLC STLMLC [id number] Common 10:34:00 [id number] [facility] 2021-12-21 Outpatient STLMLC STLMLC [id number] Common 11:45:05 24533 [facility] 2021-12-21 Outpatient STLMLC STLMLC [id number] Common 11:44:56 [id number] [facility] 2023-06-28 2023-06-28 Outpatient SUZI MEEKS [id number] Suzi 09:30:00 09:30:00 NATO joshua 2023-03-08 2023-03-08 Outpatient SFA SFA 76422-1 023 [place] 14:32:50 14:32:50 0413 [facility] 2023-02-17 2023-02-17 Outpatient SFA SFA [id number] 023 [place] 12:42:23 12:42:23 0325 [facility] [place] 2023-01-22 2023-01-22 Outpatient SFA SFA [id number] 023 [place] 14:20:56 14:20:56 0227 [facility] [place] 2023-01-19 2023-01-19 Outpatient SFA SFA [id number] 023 [place] 10:30:32 10:30:32 0224 [facility] [place] 2023-01-06 2023-01-06 Outpatient SFA SFA [id number] 023 [place] 12:26:49 12:26:49 021 [facility] [place] 2022-12-25 2022-12-25 Outpatient SFA SFA [id number] 023 [place] 15:57:46 15:57:46 0130 [facility] [place] 2022-12-19 2022-12-19 Outpatient SFA SFA [id number] 023 [place] 17:07:18 17:07:18 0124 [facility] 2022-12-18 2022-12-18 Outpatient SFA SFA 65730-8 023 [place] 16:52:50 16:52:50 0123 [facility] 2022-12-18 2022-12-18 Outpatient [id number]- [id number] 739t4w-b 00:00:00 00:00:00 Visit ou3g-8235 e1z-0784-6 -0h39-oo3 g23-ox2g13 l558ngg08 6efb87 2022-11-24 2022-11-24 Outpatient SFA SFA [id number] 022 [place] 13:12:34 13:12:34 1230 [facility] 2022-11-24 2022-11-24 Outpatient 2l5c5p46- [id number] 0f 7q1u63-6 00:00:00 00:00:00 Visit 3eee-4766 eee-4766-b -s3dy-0j1 2df-1b8c51 n10c31932 k08702 2022-10-17 2022-10-17 Outpatient SFA SFA 79715-9 022 [place] 10:39:17 10:39:17 1122 [facility] 2022-10-17 2022-10-17 Outpatient [id number] 387j68-5 00:00:00 00:00:00 Visit 666d-4f5b 66d-4f5b-a -f9me-93d 1cd-93ef67 q43v18d18 f38e31 2022-10-16 2022-10-16 Outpatient [facility] [id number] Ruby Kaminski 11:47:24 11:47:24 1121 F [place] 2022-10-16 2022-10-16 Outpatient 2uer964x- [id number] um038u-0 00:00:00 00:00:00 Visit 7y34-817a x60-072q-t -ye3o-kus b0b-ofe7gm 0ld812p4m 469c5d 2022-06-27 2022-06-27 Outpatient 87fuiv25- [id number] zvnc30-a 00:00:00 00:00:00 Visit x850-112t 062-461b-8 -5i51-71y z91-36v08v 09a6z711s 8c936r 2022-05-22 2022-05-22 Outpatient 812y1iw8- [id number] 0a6wt3-0 00:00:00 00:00:00 Visit 0t94-64i5 r21-52b8-2 -947d-464 47d-464aa0 ne41a3m8b 4a8b5a 2021-02-22 2021-02-22 Orders Doctor RAHAT 1Shakir2.840.114 [id number] Univers 00:00:00 00:00:00 Only Unassigned, KIRA 350.1.13.10 ity of [facility] 4.2.7.2.686 [place] [id number] [address] 2021-01-25 2021-01-25 Orders Doctor RAHAT Sotelo2.840.114 [id number] Univers 00:00:00 00:00:00 Only Unassigned, KIRA 350.1.13.10 ity of [facility] 4.2.7.2.686 [place] [id number] [address] 2020 2020 Out[facility] [id number] Common 14:00:00 14:00:00 [facility] 2020-05-24 2020-05-24 Telephone Dang, UNIVERSIT 1.2.840.114 [id number] Univers 00:00:00 00:00:00 Dolores Y HE[facility] 350.1.13.10 i [place] [id number] [address] 2020-05-24 2020-05-24 Telephone Dang, UNIVERS[facility] 1.2.840.114 [id number] 00:00:00 00:00:00 Dolores Y HEALTH 350.1.13.10 CLINICS 4.2.7.2.686 [id number] [facility] 2020-04-22 2020-04-22 Telephone Dang, UNIVERSIT 1.2.840.114 [id number] Univers 00:00:00 00:00:00 Dolores Y HEALTH 350.1.13.10 [place] [id number] [address] 2020-04-22 2020-04-22 Telephone Dang, [facility] 1.2.840.114 [id number] 00:00:00 00:00:00 Dolores Y HE[facility] 350.1.13.10 CLINICS 4.2.7.2.686 [id number] [facility] 2020-04-16 2020-04-16 Outpatient R DANG, [facility] 1026 [id number] Univers 15:00:00 15:00:00 DOLORES ity of [facility] 2020-04-16 2020-04-16 Telemedici Dang, UNIVERSIT 1.2.840.11 4 [id number] Univers 07:41:39 08:11:39 ne Visit Dolores Y HE[facility] 350.1.13.10 [place] [id number] [address] 2020-04-16 2020-04-16 Telemedici Dang, UNIVERSIT 1.2.840.11 4 [id number] 07:41:39 08:11:39 ne Visit Dolores Y HE[facility] 350.1.13.10 CLINICS 4.2.7.2.686 [id number] 071 2020-02-16 2020-02-16 Orders Doctor RAHAT 1.2.840.114 [id number] Univers 00:00:00 00:00:00 Only Unassigned, KIRA 350.1.13.10 ity of [facility] 4.2.7.2.686 [place] [id number] [address] 2020-02-16 2020-02-16 Orders Doctor RAHAT 1.2.840.114 [id number] 00:00:00 00:00:00 Only Unassigned, KIRA 350.1.13.10 [facility] 4.2.7.2.686 [id number] 2020-01-29 2020-01-29 Orders Doctor RAHAT 1.2.840.114 [id number] Univers 00:00:00 00:00:00 Only Unassigned, KIRA 350.1.13.10 ity of [facility] 4.2.7.2.686 [place] [id number] [address] 2020-01-29 2020-01-29 Orders Doctor RAHAT 1.2.840.114 [id number] 00:00:00 00:00:00 Only Unassigned, KIRA 350.1.13.10 [facility] 4.2.7.2.686 [id number] [facility] 2020-01-27 2020-01-27 Telephone Dang, UNIVERS[facility] 1.2.840.114 [id number] [facility] 00:00:00 00:00:00 Dolores Y HEALTH 350.1.13.10 i [place] [id number] [address] 2020-01-27 2020-01-27 Telephone Dang [facility] 1.2.840.114 [id number] 00:00:00 00:00:00 Dolores Y HEALTH 350.1.13.10 CLINICS 4.2.7.2.686 [id number] [facility] 2020-01-22 2020-01-22 Telephone O'Shakila, UNIVERSIT 1.2.840.114 [id number] Univers 00:00:00 00:00:00 Dolores Y HEALTH 350.1.13.10 [place] [id number] [address] 2020-01-22 2020-01-22 Telephone O'Shakila, UNIVERSIT 1.2.840.114 [id number] 00:00:00 00:00:00 Dolores Y HEALTH 350.1.13.10 CLINICS 4.2.7.2.686 [id number] [facility] 2020-01-19 2020-01-19 Orders Doctor RAAHT 1.2.840.114 [id number] Univers 00:00:00 00:00:00 Only Unassigned, KIRA 350.1.13.10 ity of [place] 4.2.7.2.686 [place] [id number] [address] 2020-01-14 2020-01-14 Telephone O'Shakila, UNIVERSIT 1.2.840.114 [id number] Univers 00:00:00 00:00:00 Dolores Y HEALTH 350.1.13.10 [place] [id number] [address] 2020-01-12 2020-01-12 Telephone O'Shakila, UNIVERSIT 1.2.840.114 [id number] Univers 00:00:00 00:00:00 Dolores Y HEALTH 350.1.13.10 [place] [id number] [address] 2019-12-30 2019-12-30 Telephone O'Shakila, UNIVERSIT 1.2.840.114 [id number] Univers 00:00:00 00:00:00 Dolores Y HEALTH 350.1.13.10 [place] [id number] [address] 2019-12-23 2019-12-23 Telephone O'Shakila, UNIVERSIT 1.2.840.114 [id number] Univers 00:00:00 00:00:00 Dolores Y HEALTH 350.1.13.10 i [place] [id number] [place] [address]5031 [place] 2019-08-06 2019-08-06 Orders Doctor RAHAT 1.2.840.114 [id number] Univers 00:00:00 00:00:00 Only Unassigned, KIRA 350.1.13.10 ity of [facility] 4.2.7.2.686 [place] [id number] [place] [address] [place] 2019-07-30 2019-07-30 Telephone OYARON Boyd 1.2.840.114 [id number] Univers 00:00:00 00:00:00 [facility] 350.1.13.10 i ty of [place] [phone] [address] Results Test Description Test Time Test [...] OF TISSUE PIECES: 1SUBMITTED IN C ASSETTE(S): [id number]: FormalinCOMMENT S:Entirely submitted intact. B) SPEC IMEN LABELED: EndocervixSIZE/ WEIGHT: 1.3x1.2x0.2 cm AggregateSPECIM EN COLOR: TanNUMBER OF TISSUE PIECES: multipleSUBMITTED IN CASSETTE(S): x1 MEDIUM: FormalinCOMMENT S:Filtered and entirely submitted. PATHOLOGIST: (test code = 8250) (NOTE) Jerardo Hinton M.D. Board Certified in Anatomic and inicalPathology, [place] [employer] Pathol og Specimens processed and interpreted at [facility], [address] [place] [address] 4, , CLIA: [id number] CPT: (test code = 8400) (NOTE) 8830 5x2 [facility] has important pathology staff changes e ffective 01/24/2023. New pathology s taff will provide uninterrupted, excellent patient care and clinical consul tation. See URL: [email or web address]. UNLESS OTHERWISE INDIC ATED, ALL TESTING [facility]FOR[facility], [facility]. [address] [place] [address] DIRECTOR: JERARDO HINTON M.D. CLIA NUMBER [id number] [place] [id number] PAP TEST, THINPREP, [id number] 06:23:50 Test Item Value Reference Range Interpretation Comments SOURCE: (test Cervical/Endoce code = 8001) rvical SLIDES: (test 1 code = 8011) LMP: (test code SEE NOTE POST MENOPA USAL = 8021) SPECIMEN (NOTE) Satisfactory f or ADEQUACY: (test evaluation. code = 36010) Endocervical cells/transform ation zone component present. INTERPRETATION: NILM/NO EPITH. (test code = ABNORMALITY;SEE 55941) BELOW -------- - NEGATIVE FOR INTRAEPITHELIAL LESION OR MALIGNANCY ( NILM) -------- -------- -------- ---- OTHER COMMENTS: (NOTE) Shift in makenna ra (test code = suggestive of b acterial 8081) vaginosis. SOLVENT PROCESS EXTRACTOR OPERATOR Royal Rivas : (test code = 8101) QC TECHNOLOGIST: ADRIAN Diaz (test code = LY,CT(ASCP) 8111) LOCATION: (test (NOTE) Specimens pr ocessed and code = 39048) interpreted at [facility], [address] [place] [address] [id number], Phone: , CLIA: [id number] CPT: (test code (NOTE) 04167 UNLESS OTHERWISE = 8140) INDICATED, COMP UTER [...] or consolidated pr ior Pap history is avping hart as applicable. VAGINAL PATHOGENS DNA [id number] 16:05:17 Test Item Value Reference Range Interpretation [...] and Trichomonas vag inalis nucleic acid. * [facility] has important patho logy staff changes effecti ve 01/24/2023. New pathology staff will provide uninterrupted, excellent patient care an d clinical consultation. S ee URL: [email or web address]. UNLESS OTHE RWISE INDICATED, ALL TESTING PERFORMED AT [facility] [address] [place], [place] CLIA: [id number], CAP: CT/NG, NAAT, [id number] 14:18:46 Test Item Value Reference Range Interpretation Comments CHLAMYDIA, NAAT, NEGATIVE NEGATIVE A negative result does THINPREP (test code not excl ude low level = 67669) infection, specimensamplin g error, or collection erro r. Testing is performed wi th the [employer] systems usingre al-time Polymerase Cesar n Reaction (PCR) method. GONORRHEA, NAAT, NEGATIVE NEGATIVE A negative result does THINPREP (test code not excl ude low level = 79395) infection, specimensamplin g error, or collection erro r. Testing is performed wi th the [employer] systems usingre al-time Polymerase Cesar n Reaction (PCR) method. HPV HIGH RISK WITH GENOTYPE, [id number] 14:07:23 Test Item Value Reference Range Interpretation Comments HPV HIGH RISK INTERP POSITIVE NEGATIVE A (test code = 22895) HPV 16 (test code = POSITIVE A 24870) HPV 18 (test code = NEGATIVE 60252) HPV, HR, OTHER NEGATIVE Testing meth odology is GENOTYPES (test code real-ti me PCR utilizing = 50924) hydrolysis prob es with the Natalie Sally [...] of infection or sp ecimen sampling error. [facility] has important p athology staff changes e ffective 01/24/2023. New pathology staff will provide uninter rupted, excellent patie nt care and clinical consultation. S ee URL: [email or web address]. UNLESS OTHERWISE INDICATED, ALL TESTING PERFORMED AT [facility]. [address] [place] [address] CLIA : [id number], CAP : CULTURE, [id number] 11:19:59SPECIMEN NUMBER: [id number] CULTURE, URINE SPECIMEN NUMBER: [id number] SPECIMEN COMMENT: URINE SOURCE:URINE REPORT STATUS: FINAL FINAL REPORT: 12/21/2022 NO GROWTH AFTER 36 HOURS INCUBATION UNLESS OTHERW ISE INDICATED, ALL TESTING PERFORMED [facility] [address] [place] [address] BINDER LOCKSTITCH: JERARDO HINTON M.D. [place] NUMBER [id number] [facility]. [id number]. PYLORI (BREATH)2022-04-25 13:14:53 Test Item Value Reference Range Interpretation Comments H. PYLORI (BREATH) (test code = POSITIVE NEGATIVE A 05068) H. PYLORI (BREATH)2022-04-25 00:00:00 Test Item Value Reference Range Interpretation Comments H. PYLORI (BREATH) (test code = POSITIVE 83781) H. PYLORI (BREATH)2022-04-25 00:00:00 Test Item Value Reference Range Interpretation Comments H. PYLORI (BREATH) (test code = POSITIVE 08037) H. PYLORI (BREATH)2022-04-25 00:00:00 Test Item Value Reference Range Interpretation Comments H. PYLORI (BREATH) (test code = POSITIVE 85838) H. PYLORI (BREATH)2022-04-25 00:00:00 Test Item Value Reference Range Interpretation Comments H. PYLORI (BREATH) (test code = POSITIVE 62927) H. PYLORI (BREATH)2022-04-25 00:00:00 Test Item Value Reference Range Interpretation Comments H. PYLORI (BREATH) (test code = POSITIVE 14878) H. PYLORI (BREATH)2022-04-25 00:00:00 Test Item Value Reference Range Interpretation Comments H. PYLORI (BREATH) (test code = POSITIVE 56123) H. PYLORI (BREATH)2022-04-25 00:00:00 Test Item Value Reference Range Interpretation Comments H. PYLORI (BREATH) (test code = POSITIVE 26329) H. PYLORI (BREATH)2022-04-25 00:00:00 Test Item Value Reference Range Interpretation Comments H. PYLORI (BREATH) (test code = POSITIVE 00777) H. PYLORI (BREATH)2022-04-25 00:00:00 Test Item Value Reference Range Interpretation Comments H. PYLORI (BREATH) (test code = POSITIVE 71671) H. PYLORI (BREATH)2022-04-25 00:00:00 Test Item Value Reference Range Interpretation Comments H. PYLORI (BREATH) (test code = POSITIVE 18673) H. PYLORI (BREATH)2022-04-25 00:00:00 Test Item Value Reference Range Interpretation Comments H. PYLORI (BREATH) (test code = POSITIVE 78186) UNLABELLED [id number] 06:02:48 Test Item Value Reference Range Interpretation Comments NOTE: (test code = SPECIMEN RECEIVED WITHOUT 22396) PATIENT'S NAME. UNLESS OTHERWISE INDIC ATED, ALL TESTING PERFORM ED [facility] [employer] [address] [place] [address], [place] [address] LABORATOR Y DIRECTOR: JERARDO RESTREPO M.D. CLIA NUMBER [id number] CAP ACCREDITATION N O. [id number] UNLABELLED SPECIMEN [ADDED]2022-04-23 00:00:00 Test Item Value Reference Range Interpretation Comments NOTE: (test code = 54949) UNLABELLED SPECIMEN [ADDED]2022-04-23 00:00:00 Test Item Value Reference Range Interpretation Comments NOTE: (test code = 93099) UNLABELLED SPECIMEN [ADDED]2022-04-23 00:00:00 Test Item Value Reference Range Interpretation Comments NOTE: (test code = 37703) UNLABELLED SPECIMEN [ADDED]2022-04-23 00:00:00 Test Item Value Reference Range Interpretation Comments NOTE: (test code = 86701) UNLABELLED SPECIMEN [ADDED]2022-04-23 00:00:00 Test Item Value Reference Range Interpretation Comments NOTE: (test code = 14898) UNLABELLED SPECIMEN [ADDED]2022-04-23 00:00:00 Test Item Value Reference Range Interpretation Comments NOTE: (test code = 65662) TSH, THIRD [id number] 05:20:11 Test Item Value Reference Range Interpretation Comments TSH, THIRD 3.150 UIU/ML 0.400-4.100 UNLESS OTHERWI SE GENERATION (test INDICATED, ALL TESTING code = 2821) PERFORMED [facility] [place] [address] [facility] [place] [address] LABORA TORY DIRECTOR: JERARDO HINTON M.D. CLIA NUMBER [id number] CAP ACCREDITATION N O. [id number] 00:00:00 Test Item Value Reference Range Interpretation Comments TSH, THIRD GENERATION (test code 3.150 UIU/ML = 2821) [id number] 00:00:00 Test Item Value Reference Range Interpretation Comments TSH, THIRD GENERATION (test code 3.150 UIU/ML = 2821) [id number] 00:00:00 Test Item Value Reference Range Interpretation Comments TSH, THIRD GENERATION (test code 3.150 UIU/ML = 2821) [id number] 00:00:00 Test Item Value Reference Range Interpretation Comments TSH, THIRD GENERATION (test code 3.150 UIU/ML = 2821) [id number] 00:00:00 Test Item Value Reference Range Interpretation Comments TSH, THIRD GENERATION (test code 3.150 UIU/ML = 2821) [id number] 00:00:00 Test Item Value Reference Range Interpretation Comments TSH, THIRD GENERATION (test code 3.150 UIU/ML = 2821) [id number] 00:00:00 Test Item Value Reference Range Interpretation Comments TSH, THIRD GENERATION (test code 3.150 UIU/ML = 2821) [id number] 00:00:00 Test Item Value Reference Range Interpretation Comments TSH, THIRD GENERATION (test code 3.150 UIU/ML = 2821) [id number] 00:00:00 Test Item Value Reference Range Interpretation Comments TSH, THIRD GENERATION (test code 3.150 UIU/ML = 2821) [id number] 00:00:00 Test Item Value Reference Range Interpretation Comments TSH, THIRD GENERATION (test code 3.150 UIU/ML = 2821) [id number] 00:00:00 Test Item Value Reference Range Interpretation Comments TSH, THIRD GENERATION (test code 3.150 UIU/ML = 2821) [id number] 00:00:00 Test Item Value Reference Range Interpretation Comments TSH, THIRD GENERATION (test code 3.150 UIU/ML = 2821) [id number] 00:00:00 Test Item Value Reference Range Interpretation Comments TSH, THIRD GENERATION (test code 3.150 UIU/ML = 2821) [id number] 00:00:00 Test Item Value Reference Range Interpretation Comments TSH, THIRD GENERATION (test code 3.150 UIU/ML = 2821) [id number] 00:00:00 Test Item Value Reference Range Interpretation Comments TSH, THIRD GENERATION (test code 3.150 UIU/ML = 2821) [id number] 00:00:00 Test Item Value Reference Range Interpretation Comments TSH, THIRD GENERATION (test code 3.150 UIU/ML = 2821) [id number] 00:00:00 Test Item Value Reference Range Interpretation Comments TSH, THIRD GENERATION (test code 3.150 UIU/ML = 2821) SARS-CoV-2 (COVID-19), RT-PCR/[id number] 17:22:58 Test Item Value Reference Interpretation Comments Range SARS-CoV-2 NEGATIVE SEE NOTE SARS-CoV-2 RNA NOT INTERPRETATION DETECTEDNegat praneeth (test code = 86854) results do not preclude SARS-C oV-2 infection [...] (test code = NASOPHARYNGEAL [place]: [place] [address]) [facility] [place] l-Time RT-PCR. The exp ected result or [...] provided by met hod given in report:https:// www.[email or web address]/clinic ians/cl ient-communicat ions/ Alternatively, see downloadable PD F fact sheet at:[email or web address]://www. [place]/[email or web address]-R T-PCR UNLESS OTHERWIS E INDICATED, ALL TESTING PERFORMED [facility], [facility]. [address] [place] [address] [facility] DIRECTOR: JERARDO HINTON M.D. [place] NUMBER [id number] CAP ACCREDITATION N O. [id number] SARS-CoV-2 (COVID-19) by RT-PCR (HIGH RISK)2021-12-04 00:00:00 Test Item Value Reference Range Interpretation Comments SARS-CoV-2 INTERPRETATION NEGATIVE (test code = 42602) SOURCE (test code = 73553) NASOPHARYNGEAL SARS-CoV-2 (COVID-19) by RT-PCR (HIGH RISK)2021-12-04 00:00:00 Test Item Value Reference Range Interpretation Comments SARS-CoV-2 INTERPRETATION NEGATIVE (test code = 52164) SOURCE (test code = 70921) NASOPHARYNGEAL SARS-CoV-2 (COVID-19) by RT-PCR (HIGH RISK)2021-12-04 00:00:00 Test Item Value Reference Range Interpretation Comments SARS-CoV-2 INTERPRETATION NEGATIVE (test code = 63228) SOURCE (test code = 70309) NASOPHARYNGEAL SARS-CoV-2 (COVID-19) by RT-PCR (HIGH RISK)2021-12-04 00:00:00 Test Item Value Reference Range Interpretation Comments SARS-CoV-2 INTERPRETATION NEGATIVE (test code = 85817) SOURCE (test code = 89843) NASOPHARYNGEAL SARS-CoV-2 (COVID-19) by RT-PCR (HIGH RISK)2021-12-04 00:00:00 Test Item Value Reference Range Interpretation Comments SARS-CoV-2 INTERPRETATION NEGATIVE (test code = 71031) SOURCE (test code = 50161) NASOPHARYNGEAL SARS-CoV-2 (COVID-19) by RT-PCR (HIGH RISK)2021-12-04 00:00:00 Test Item Value Reference Range Interpretation Comments SARS-CoV-2 INTERPRETATION NEGATIVE (test code = 18673) SOURCE (test code = 83317) NASOPHARYNGEAL SARS-CoV-2 (COVID-19) by RT-PCR (HIGH RISK)2021-12-04 00:00:00 Test Item Value Reference Range Interpretation Comments SARS-CoV-2 INTERPRETATION NEGATIVE (test code = 36992) SOURCE (test code = 13632) NASOPHARYNGEAL SARS-CoV-2 (COVID-19) by RT-PCR (HIGH RISK)2021-12-04 00:00:00 Test Item Value Reference Range Interpretation Comments SARS-CoV-2 INTERPRETATION NEGATIVE (test code = 89946) SOURCE (test code = 58086) NASOPHARYNGEAL SARS-CoV-2 (COVID-19) by RT-PCR (HIGH RISK)2021-12-04 00:00:00 Test Item Value Reference Range Interpretation Comments SARS-CoV-2 INTERPRETATION NEGATIVE (test code = 64372) SOURCE (test code = 14165) NASOPHARYNGEAL SARS-CoV-2 (COVID-19) by RT-PCR (HIGH RISK)2021-12-04 00:00:00 Test Item Value Reference Range Interpretation Comments SARS-CoV-2 INTERPRETATION NEGATIVE (test code = 49137) SOURCE (test code = 85232) NASOPHARYNGEAL SARS-CoV-2 (COVID-19) by RT-PCR (HIGH RISK)2021-12-04 00:00:00 Test Item Value Reference Range Interpretation Comments SARS-CoV-2 INTERPRETATION NEGATIVE (test code = 71761) SOURCE (test code = 55716) NASOPHARYNGEAL SCR MAMM BILATERAL SARAH CAD [id number] 10:53:17 Name: Dionne : 1965 Sex: F* - SCR MAMM BILATERAL SARAH CAD DIGITALBILATERAL DIGITAL SCREENING MAMMOGRAM 3D/2D WITH CAD: 10/11/2021LINICAL: Asymptomatic. Digital breast tomosynthesis was performed in addition to routine CC and MLO views. Current mammographic images were evaluated by [employer] ImageChecker CAD (computer-aided detection) software. Comparison is made to exams dated 06/28/2020 mammogram, 12/20/2018 mammogram - [facility], and 02/02/2012 mammogram- [facility]. The tissue of both breasts is heterogeneously dense. This may lower the sensitivity of mammography. No suspicious mass, architectural distortion, malignant type calcification, or lymph node abnormality detected. Breast architecture is stable compared to prior exams.IMPRESSION: NEGATIVEThere is no mammographic evidence of malignancy. Resume annual screening mammography in one year. Scotty Luu/penrad:10/13/2021 10:53:17 Development Representative: Merary Clark MM, [facility] sent: BIRADS 1-2 Normal Mammogram BI-RADS: 1 Negative SARS-CoV-2 (COVID-19) by RT-PCR (HIGH RISK)2021-05-06 00:00:00 Test Item Value Reference Range Interpretation Comments SARS-CoV-2 INTERPRETATION (test NEGATIVE code = 84116) SOURCE (test code = 21767) NOT SPECIFIED SARS-CoV-2 (COVID-19) by RT-PCR (HIGH RISK)2021-05-06 00:00:00 Test Item Value Reference Range Interpretation Comments SARS-CoV-2 INTERPRETATION (test NEGATIVE code = 22113) SOURCE (test code = 51063) NOT SPECIFIED SARS-CoV-2 (COVID-19) by RT-PCR (HIGH RISK)2021-05-06 00:00:00 Test Item Value Reference Range Interpretation Comments SARS-CoV-2 INTERPRETATION (test NEGATIVE code = 85018) SOURCE (test code = 46870) NOT SPECIFIED SARS-CoV-2 (COVID-19) by RT-PCR (HIGH RISK)2021-05-06 00:00:00 Test Item Value Reference Range Interpretation Comments SARS-CoV-2 INTERPRETATION (test NEGATIVE code = 78972) SOURCE (test code = 20540) NOT SPECIFIED SARS-CoV-2 (COVID-19) by RT-PCR (HIGH RISK)2021-05-06 00:00:00 Test Item Value Reference Range Interpretation Comments SARS-CoV-2 INTERPRETATION (test NEGATIVE code = 97215) SOURCE (test code = 70418) NOT SPECIFIED SARS-CoV-2 (COVID-19) by RT-PCR (HIGH RISK)2021-05-06 00:00:00 Test Item Value Reference Range Interpretation Comments SARS-CoV-2 INTERPRETATION (test NEGATIVE code = 84169) SOURCE (test code = 67189) NOT SPECIFIED SARS-CoV-2 (COVID-19) by RT-PCR (HIGH RISK)2021-05-06 00:00:00 Test Item Value Reference Range Interpretation Comments SARS-CoV-2 INTERPRETATION (test NEGATIVE code = 30725) SOURCE (test code = 35280) NOT SPECIFIED SARS-CoV-2 (COVID-19) by RT-PCR (HIGH RISK)2021-05-06 00:00:00 Test Item Value Reference Range Interpretation Comments SARS-CoV-2 INTERPRETATION (test NEGATIVE code = 82881) SOURCE (test code = 80216) NOT SPECIFIED SARS-CoV-2 (COVID-19) by RT-PCR (HIGH RISK)2021-05-06 00:00:00 Test Item Value Reference Range Interpretation Comments SARS-CoV-2 INTERPRETATION (test NEGATIVE code = 91357) SOURCE (test code = 43629) NOT SPECIFIED SARS-CoV-2 (COVID-19) by RT-PCR (HIGH RISK)2021-05-06 00:00:00 Test Item Value Reference Range Interpretation Comments SARS-CoV-2 INTERPRETATION (test NEGATIVE code = 04749) SOURCE (test code = 73168) NOT SPECIFIED SARS-CoV-2 (COVID-19) by RT-PCR (HIGH RISK)2021-05-06 00:00:00 Test Item Value Reference Range Interpretation Comments SARS-CoV-2 INTERPRETATION (test NEGATIVE code = 48727) SOURCE (test code = 43918) NOT SPECIFIED CBC W/AUTO [id number] 00:00:00 Test Item Value Reference Range Interpretation [...] NUCLEATED RBCS (test code = 0.00 K/UL 62414) HEMOGLOBIN [id number] 00:00:00 Test Item Value Reference Range Interpretation Comments HEMOGLOBIN A1c (test code = 50253) 5.2 % HEMOGLOBIN [id number] 00:00:00 Test Item Value Reference Range Interpretation Comments HEMOGLOBIN A1c (test code = 23215) 5.2 % LIPID [id number] 00:00:00 Test Item Value Reference Range Interpretation Comments CHOLESTEROL (test code = 2210) 151 MG/DL TRIGLYCERIDES (test code = 2232) 286 MG/DL HDL CHOLESTEROL (test code = 2220) 27 MG/DL CALC LDL CHOL (test code = 2237) 86 MG/DL RISK RATIO LDL/HDL (test code = 3.19 RATIO 2238) COMPREHENSIVE METABOLIC [id number] 00:00:00 Test Item Value Reference Range Interpretation Comments GLUCOSE (test code = 2217) 102 MG/DL BUN (test code = 2208) 10 MG/DL CREATININE (test code = 2214) 0.80 MG/DL eGFR AMER. (test code 96 ML/MIN/1.73 = 70269) eGFR NON- AMER. (test 83 ML/MIN/1.73 code = 10952) CALC BUN/CREAT (test code = 13 RATIO [...] ALT (test code = 2219) 14 U/L [id number] 00:00:00 Test Item Value Reference Range Interpretation Comments TSH, THIRD GENERATION (test code 1.540 UIU/ML = 2821) [id number] 00:00:00 Test Item Value Reference Range Interpretation Comments TSH, THIRD GENERATION (test code 1.540 UIU/ML = 2821) VITAMIN D, 25 [id number] 00:00:00 Test Item Value Reference Range Interpretation Comments VITAMIN D, 25 [place] (test code = 4958) 20 NG/ML CBC W/AUTO [id number] 00:00:00 Test Item Value Reference Range Interpretation [...] NUCLEATED RBCS (test code = 0.00 K/UL 39946) CBC W/AUTO [id number] 00:00:00 Test Item Value Reference Range Interpretation [...] NUCLEATED RBCS (test code = 0.00 K/UL 64285) CBC W/AUTO [id number] 00:00:00 Test Item Value Reference Range Interpretation [...] NUCLEATED RBCS (test code = 0.00 K/UL 17050) HEMOGLOBIN [id number] 00:00:00 Test Item Value Reference Range Interpretation Comments HEMOGLOBIN A1c (test code = 30248) 5.2 % HEMOGLOBIN [id number] 00:00:00 Test Item Value Reference Range Interpretation Comments HEMOGLOBIN A1c (test code = 76224) 5.2 % HEMOGLOBIN [id number] 00:00:00 Test Item Value Reference Range Interpretation Comments HEMOGLOBIN A1c (test code = 16678) 5.2 % LIPID [id number] 00:00:00 Test Item Value Reference Range Interpretation Comments CHOLESTEROL (test code = 2210) 151 MG/DL TRIGLYCERIDES (test code = 2232) 286 MG/DL HDL CHOLESTEROL (test code = 2220) 27 MG/DL CALC LDL CHOL (test code = 2237) 86 MG/DL RISK RATIO LDL/HDL (test code = 3.19 RATIO 2238) LIPID [id number] 00:00:00 Test Item Value Reference Range Interpretation Comments CHOLESTEROL (test code = 2210) 151 MG/DL TRIGLYCERIDES (test code = 2232) 286 MG/DL HDL CHOLESTEROL (test code = 2220) 27 MG/DL CALC LDL CHOL (test code = 2237) 86 MG/DL RISK RATIO LDL/HDL (test code = 3.19 RATIO 2238) COMPREHENSIVE METABOLIC [id number] 00:00:00 Test Item Value Reference Range Interpretation Comments GLUCOSE (test code = 2217) 102 MG/DL BUN (test code = 2208) 10 MG/DL CREATININE (test code = 2214) 0.80 MG/DL eGFR AMER. (test code 96 ML/MIN/1.73 = 32999) eGFR NON- AMER. (test 83 ML/MIN/1.73 code = 47064) CALC BUN/CREAT (test code = 13 RATIO [...] code = 2219) 14 U/L COMPREHENSIVE METABOLIC [id number] 00:00:00 Test Item Value Reference Range Interpretation Comments GLUCOSE (test code = 2217) 102 MG/DL BUN (test code = 2208) 10 MG/DL CREATININE (test code = 2214) 0.80 MG/DL eGFR AMER. (test code 96 ML/MIN/1.73 = 25564) eGFR NON- AMER. (test 83 ML/MIN/1.73 code = 67139) CALC BUN/CREAT (test code = 13 RATIO 2235) SODIUM (test code = 2231) 141 MEQ/L POTASSIUM (test code = 2228) 4.6 MEQ/L CHLORIDE (test code = 2215) 103 MEQ/L CARBON DIOXIDE (test code = 29 MEQ/L 220) CALCIUM (test code = 2209) 9.8 MG/DL PROTEIN, TOTAL (test code = 7.1 G/DL 9) ALBUMIN (test code = 2201) 4.4 G/DL CALC GLOBULIN (test code = 2.7 G/DL 2240) CALC A/G RATIO (test code = 1.6 RATIO 2234) BILIRUBIN, TOTAL (test code = 0.7 MG/DL 2207) ALKALINE PHOSPHATASE (test 166 U/L code = 2204) AST (test code = 2218) 15 U/L ALT (test code = 2219) 14 U/L [id number] 00:00:00 Test Item Value Reference Range Interpretation Comments TSH, THIRD GENERATION (test code 1.540 UIU/ML = 2821) [id number] 00:00:00 Test Item Value Reference Range Interpretation Comments TSH, THIRD GENERATION (test code 1.540 UIU/ML = 2821) [id number] 00:00:00 Test Item Value Reference Range Interpretation Comments TSH, THIRD GENERATION (test code 1.540 UIU/ML = 2821) VITAMIN D, 25 [id number] 00:00:00 Test Item Value Reference Range Interpretation Comments VITAMIN D, 25 [place] (test code = 4958) 20 NG/ML VITAMIN D, 25 [id number] 00:00:00 Test Item Value Reference Range Interpretation Comments VITAMIN D, 25 [place] (test code = 4958) 20 NG/ML CBC W/AUTO [id number] 00:00:00 Test Item Value Reference Range Interpretation [...] NUCLEATED RBCS (test code = 0.00 K/UL 73619) CBC W/AUTO [id number] 00:00:00 Test Item Value Reference Range Interpretation [...] NUCLEATED RBCS (test code = 0.00 K/UL 59265) CBC W/AUTO [id number] 00:00:00 Test Item Value Reference Range Interpretation [...] NUCLEATED RBCS (test code = 0.00 K/UL 76989) HEMOGLOBIN [id number] 00:00:00 Test Item Value Reference Range Interpretation Comments HEMOGLOBIN A1c (test code = 08985) 5.2 % HEMOGLOBIN [id number] 00:00:00 Test Item Value Reference Range Interpretation Comments HEMOGLOBIN A1c (test code = 48389) 5.2 % HEMOGLOBIN [id number] 00:00:00 Test Item Value Reference Range Interpretation Comments HEMOGLOBIN A1c (test code = 62293) 5.2 % LIPID [id number] 00:00:00 Test Item Value Reference Range Interpretation Comments CHOLESTEROL (test code = 2210) 151 MG/DL TRIGLYCERIDES (test code = 2232) 286 MG/DL HDL CHOLESTEROL (test code = 2220) 27 MG/DL CALC LDL CHOL (test code = 2237) 86 MG/DL RISK RATIO LDL/HDL (test code = 3.19 RATIO 2238) LIPID [id number] 00:00:00 Test Item Value Reference Range Interpretation Comments CHOLESTEROL (test code = 2210) 151 MG/DL TRIGLYCERIDES (test code = 2232) 286 MG/DL HDL CHOLESTEROL (test code = 2220) 27 MG/DL CALC LDL CHOL (test code = 2237) 86 MG/DL RISK RATIO LDL/HDL (test code = 3.19 RATIO 2238) COMPREHENSIVE METABOLIC [id number] 00:00:00 Test Item Value Reference Range Interpretation Comments GLUCOSE (test code = 2217) 102 MG/DL BUN (test code = 2208) 10 MG/DL CREATININE (test code = 2214) 0.80 MG/DL eGFR AMER. (test code 96 ML/MIN/1.73 = 15499) eGFR NON- AMER. (test 83 ML/MIN/1.73 code = 29429) CALC BUN/CREAT (test code = 13 RATIO [...] BILIRUBIN, TOTAL (test code = 0.7 MG/DL 220) ALKALINE PHOSPHATASE (test 166 U/L code = 2204) AST (test code = 2218) 15 U/L ALT (test code = 2219) 14 U/L COMPREHENSIVE METABOLIC [id number] 00:00:00 Test Item Value Reference Range Interpretation Comments GLUCOSE (test code = 2217) 102 MG/DL BUN (test code = 2208) 10 MG/DL CREATININE (test code = 2214) 0.80 MG/DL eGFR AMER. (test code 96 ML/MIN/1.73 = 41626) eGFR NON- AMER. (test 83 ML/MIN/1.73 code = 20777) CALC BUN/CREAT (test code = 13 RATIO [...] ALKALINE PHOSPHATASE (test 166 U/L code = 220) AST (test code = 2218) 15 U/L ALT (test code = 2219) 14 U/L [id number] 00:00:00 Test Item Value Reference Range Interpretation Comments TSH, THIRD GENERATION (test code 1.540 UIU/ML = 2821) [id number] 00:00:00 Test Item Value Reference Range Interpretation Comments TSH, THIRD GENERATION (test code 1.540 UIU/ML = 2821) [id number] 00:00:00 Test Item Value Reference Range Interpretation Comments TSH, THIRD GENERATION (test code 1.540 UIU/ML = 2821) VITAMIN D, 25 [id number] 00:00:00 Test Item Value Reference Range Interpretation Comments VITAMIN D, 25 [place] (test code = 4958) 20 NG/ML VITAMIN D, 25 [id number] 00:00:00 Test Item Value Reference Range Interpretation Comments VITAMIN D, 25 [place] (test code = 4958) 20 NG/ML CBC W/AUTO [id number] 00:00:00 Test Item Value Reference Range Interpretation [...] NUCLEATED RBCS (test code = 0.00 K/UL 45387) CBC W/AUTO [id number] 00:00:00 Test Item Value Reference Range Interpretation [...] NUCLEATED RBCS (test code = 0.00 K/UL 02650) CBC W/AUTO [id number] 00:00:00 Test Item Value Reference Range Interpretation [...] NUCLEATED RBCS (test code = 0.00 K/UL 85302) HEMOGLOBIN [id number] 00:00:00 Test Item Value Reference Range Interpretation Comments HEMOGLOBIN A1c (test code = 57651) 5.2 % HEMOGLOBIN [id number] 00:00:00 Test Item Value Reference Range Interpretation Comments HEMOGLOBIN A1c (test code = 13742) 5.2 % HEMOGLOBIN [id number] 00:00:00 Test Item Value Reference Range Interpretation Comments HEMOGLOBIN A1c (test code = 75155) 5.2 % LIPID [id number] 00:00:00 Test Item Value Reference Range Interpretation Comments CHOLESTEROL (test code = 2210) 151 MG/DL TRIGLYCERIDES (test code = 2232) 286 MG/DL HDL CHOLESTEROL (test code = 2220) 27 MG/DL CALC LDL CHOL (test code = 2237) 86 MG/DL RISK RATIO LDL/HDL (test code = 3.19 RATIO 2238) LIPID [id number] 00:00:00 Test Item Value Reference Range Interpretation Comments CHOLESTEROL (test code = 2210) 151 MG/DL TRIGLYCERIDES (test code = 2232) 286 MG/DL HDL CHOLESTEROL (test code = 2220) 27 MG/DL CALC LDL CHOL (test code = 2237) 86 MG/DL RISK RATIO LDL/HDL (test code = 3.19 RATIO 2238) COMPREHENSIVE METABOLIC [id number] 00:00:00 Test Item Value Reference Range Interpretation Comments GLUCOSE (test code = 2217) 102 MG/DL BUN (test code = 2208) 10 MG/DL CREATININE (test code = 2214) 0.80 MG/DL eGFR AMER. (test code 96 ML/MIN/1.73 = 91042) eGFR NON- AMER. (test 83 ML/MIN/1.73 code = 70103) CALC BUN/CREAT (test code = 13 RATIO [...] code = 2219) 14 U/L COMPREHENSIVE METABOLIC [id number] 00:00:00 Test Item Value Reference Range Interpretation Comments GLUCOSE (test code = 2217) 102 MG/DL BUN (test code = 2208) 10 MG/DL CREATININE (test code = 2214) 0.80 MG/DL eGFR AMER. (test code 96 ML/MIN/1.73 = 29139) eGFR NON- AMER. (test 83 ML/MIN/1.73 code = 14661) CALC BUN/CREAT (test code = 13 RATIO 5) SODIUM (test code = 2231) 141 MEQ/L [...] ALT (test code = 2219) 14 U/L [id number] 00:00:00 Test Item Value Reference Range Interpretation Comments TSH, THIRD GENERATION (test code 1.540 UIU/ML = 2821) [id number] 00:00:00 Test Item Value Reference Range Interpretation Comments TSH, THIRD GENERATION (test code 1.540 UIU/ML = 2821) [id number] 00:00:00 Test Item Value Reference Range Interpretation Comments TSH, THIRD GENERATION (test code 1.540 UIU/ML = 2821) VITAMIN D, 25 [id number] 00:00:00 Test Item Value Reference Range Interpretation Comments VITAMIN D, 25 OH (test code = 4958) 20 NG/ML VITAMIN D, 25 [id number] 00:00:00 Test Item Value Reference Range Interpretation Comments VITAMIN D, 25 OH (test code = 4958) 20 NG/ML CBC W/AUTO [id number] 00:00:00 Test Item Value Reference Range Interpretation [...] NUCLEATED RBCS (test code = 0.00 K/UL 47129) CBC W/AUTO [id number] 00:00:00 Test Item Value Reference Range Interpretation [...] NUCLEATED RBCS (test code = 0.00 K/UL 54974) CBC W/AUTO [id number] 00:00:00 Test Item Value Reference Range Interpretation [...] NUCLEATED RBCS (test code = 0.00 K/UL 51560) HEMOGLOBIN [id number] 00:00:00 Test Item Value Reference Range Interpretation Comments HEMOGLOBIN A1c (test code = 06073) 5.2 % HEMOGLOBIN [id number] 00:00:00 Test Item Value Reference Range Interpretation Comments HEMOGLOBIN A1c (test code = 67118) 5.2 % HEMOGLOBIN [id number] 00:00:00 Test Item Value Reference Range Interpretation Comments HEMOGLOBIN A1c (test code = 06069) 5.2 % LIPID [id number] 00:00:00 Test Item Value Reference Range Interpretation Comments CHOLESTEROL (test code = 2210) 151 MG/DL TRIGLYCERIDES (test code = 2232) 286 MG/DL HDL CHOLESTEROL (test code = 2220) 27 MG/DL CALC LDL CHOL (test code = 2237) 86 MG/DL RISK RATIO LDL/HDL (test code = 3.19 RATIO 2238) LIPID [id number] 00:00:00 Test Item Value Reference Range Interpretation Comments CHOLESTEROL (test code = 2210) 151 MG/DL TRIGLYCERIDES (test code = 2232) 286 MG/DL HDL CHOLESTEROL (test code = 2220) 27 MG/DL CALC LDL CHOL (test code = 2237) 86 MG/DL RISK RATIO LDL/HDL (test code = 3.19 RATIO 2238) COMPREHENSIVE METABOLIC [id number] 00:00:00 Test Item Value Reference Range Interpretation Comments GLUCOSE (test code = 2217) 102 MG/DL BUN (test code = 2208) 10 MG/DL CREATININE (test code = 2214) 0.80 MG/DL eGFR AMER. (test code 96 ML/MIN/1.73 = 32999) eGFR NON- AMER. (test 83 ML/MIN/1.73 code = 28125) CALC BUN/CREAT (test code = 13 RATIO [...] code = 2219) 14 U/L COMPREHENSIVE METABOLIC [id number] 00:00:00 Test Item Value Reference Range Interpretation Comments GLUCOSE (test code = 2217) 102 MG/DL BUN (test code = 2208) 10 MG/DL CREATININE (test code = 2214) 0.80 MG/DL eGFR AMER. (test code 96 ML/MIN/1.73 = 16932) eGFR NON- AMER. (test 83 ML/MIN/1.73 code = 98785) CALC BUN/CREAT (test code = 13 RATIO [...] ALT (test code = 2219) 14 U/L [id number] 00:00:00 Test Item Value Reference Range Interpretation Comments TSH, THIRD GENERATION (test code 1.540 UIU/ML = 2821) [id number] 00:00:00 Test Item Value Reference Range Interpretation Comments TSH, THIRD GENERATION (test code 1.540 UIU/ML = 2821) [id number] 00:00:00 Test Item Value Reference Range Interpretation Comments TSH, THIRD GENERATION (test code 1.540 UIU/ML = 2821) VITAMIN D, 25 [id number] 00:00:00 Test Item Value Reference Range Interpretation Comments VITAMIN D, 25 OH (test code = 4958) 20 NG/ML VITAMIN D, 25 [id number] 00:00:00 Test Item Value Reference Range Interpretation Comments VITAMIN D, 25 OH (test code = 4958) 20 NG/ML CBC W/AUTO [id number] 00:00:00 Test Item Value Reference Range Interpretation [...] NUCLEATED RBCS (test code = 0.00 K/UL 55271) CBC W/AUTO [id number] 00:00:00 Test Item Value Reference Range Interpretation [...] NUCLEATED RBCS (test code = 0.00 K/UL 66210) CBC W/AUTO [id number] 00:00:00 Test Item Value Reference Range Interpretation [...] NUCLEATED RBCS (test code = 0.00 K/UL 44189) HEMOGLOBIN [id number] 00:00:00 Test Item Value Reference Range Interpretation Comments HEMOGLOBIN A1c (test code = 12460) 5.2 % HEMOGLOBIN [id number] 00:00:00 Test Item Value Reference Range Interpretation Comments HEMOGLOBIN A1c (test code = 11425) 5.2 % HEMOGLOBIN [id number] 00:00:00 Test Item Value Reference Range Interpretation Comments HEMOGLOBIN A1c (test code = 02130) 5.2 % LIPID [id number] 00:00:00 Test Item Value Reference Range Interpretation Comments CHOLESTEROL (test code = 2210) 151 MG/DL TRIGLYCERIDES (test code = 2232) 286 MG/DL HDL CHOLESTEROL (test code = 2220) 27 MG/DL CALC LDL CHOL (test code = 2237) 86 MG/DL RISK RATIO LDL/HDL (test code = 3.19 RATIO 2238) LIPID [id number] 00:00:00 Test Item Value Reference Range Interpretation Comments CHOLESTEROL (test code = 2210) 151 MG/DL TRIGLYCERIDES (test code = 2232) 286 MG/DL HDL CHOLESTEROL (test code = 2220) 27 MG/DL CALC LDL CHOL (test code = 2237) 86 MG/DL RISK RATIO LDL/HDL (test code = 3.19 RATIO 2238) COMPREHENSIVE METABOLIC [id number] 00:00:00 Test Item Value Reference Range Interpretation Comments GLUCOSE (test code = 2217) 102 MG/DL BUN (test code = 2208) 10 MG/DL CREATININE (test code = 2214) 0.80 MG/DL eGFR AMER. (test code 96 ML/MIN/1.73 = 28150) eGFR NON- AMER. (test 83 ML/MIN/1.73 code = 73734) CALC BUN/CREAT (test code = 13 RATIO 2235) SODIUM (test code = 2231) 141 MEQ/L POTASSIUM (test code = 2228) 4.6 MEQ/L CHLORIDE (test code = 2215) 103 MEQ/L CARBON DIOXIDE (test code = 29 MEQ/L 2205) CALCIUM (test code = 2209) 9.8 MG/DL PROTEIN, TOTAL (test code = 7.1 G/DL 2228) ALBUMIN (test code = 220) 4.4 G/DL CALC GLOBULIN (test code = 2.7 G/DL 2239) CALC A/G RATIO (test code = 1.6 RATIO 2234) BILIRUBIN, TOTAL (test code = 0.7 MG/DL 7) ALKALINE PHOSPHATASE (test 166 U/L code = 2204) AST (test code = 2218) 15 U/L ALT (test code = 2219) 14 U/L COMPREHENSIVE METABOLIC [id number] 00:00:00 Test Item Value Reference Range Interpretation Comments GLUCOSE (test code = 2217) 102 MG/DL BUN (test code = 2208) 10 MG/DL CREATININE (test code = 2214) 0.80 MG/DL eGFR AMER. (test code 96 ML/MIN/1.73 = 52648) eGFR NON- AMER. (test 83 ML/MIN/1.73 code = 34909) CALC BUN/CREAT (test code = 13 RATIO [...] ALT (test code = 2219) 14 U/L [id number] 00:00:00 Test Item Value Reference Range Interpretation Comments TSH, THIRD GENERATION (test code 1.540 UIU/ML = 2821) [id number] 00:00:00 Test Item Value Reference Range Interpretation Comments TSH, THIRD GENERATION (test code 1.540 UIU/ML = 2821) [id number] 00:00:00 Test Item Value Reference Range Interpretation Comments TSH, THIRD GENERATION (test code 1.540 UIU/ML = 2821) VITAMIN D, 25 [id number] 00:00:00 Test Item Value Reference Range Interpretation Comments VITAMIN D, 25 OH (test code = 4958) 20 NG/ML VITAMIN D, 25 [id number] 00:00:00 Test Item Value Reference Range Interpretation Comments VITAMIN D, 25 OH (test code = 4958) 20 NG/ML CBC W/AUTO [id number] 00:00:00 Test Item Value Reference Range Interpretation [...] NUCLEATED RBCS (test code = 0.00 K/UL 58990) SCR MAMM BILATERAL SARAH CAD [id number] 10:14:45 - SCR MAMM BILATERAL SARAH CAD DIGITALBILATERAL DIGITAL SCREENING MAMMOGRAM 3D/2D WITH CAD: 06/28/2020C LINICAL: Asymptomatic. Digital breast tomosynthesis was performed in addition to routine CC and MLO views. Current mammographic images were evaluated by either a [employer] M-Vu or a [employer] ImageChecker CAD (computer aided detection system). Comparison is made to exams dated 12/20/2018 mammogram - [facility] and 02/02/2012 mammogram - [facility]. [...] 07/05/2020 10:14:45Imaging Technologist: Zunilda Armstrong MM, The [employer] M ammographyletter sent: BIRADS 1-2 Normal Mammogram BI-RADS: 1 [id number] (COVID-19) by RT-PCR (HIGH RISK)2020-06-05 00:00:00 Test Item Value Reference Range Interpretation Comments SARS-CoV-2 INTERPRETATION (test NEGATIVE code = 47760) SOURCE (test code = 00148) NOT SPECIFIED SARS-CoV-2 (COVID-19) by RT-PCR (HIGH RISK)2020-06-05 00:00:00 Test Item Value Reference Range Interpretation Comments SARS-CoV-2 INTERPRETATION (test NEGATIVE code = 75876) SOURCE (test code = 04696) NOT SPECIFIED SARS-CoV-2 (COVID-19) by RT-PCR (HIGH RISK)2020-06-05 00:00:00 Test Item Value Reference Range Interpretation Comments SARS-CoV-2 INTERPRETATION (test NEGATIVE code = 17549) SOURCE (test code = 55687) NOT SPECIFIED SARS-CoV-2 (COVID-19) by RT-PCR (HIGH RISK)2020-06-05 00:00:00 Test Item Value Reference Range Interpretation Comments SARS-CoV-2 INTERPRETATION (test NEGATIVE code = 03256) SOURCE (test code = 77399) NOT SPECIFIED SARS-CoV-2 (COVID-19) by RT-PCR (HIGH RISK)2020-06-05 00:00:00 Test Item Value Reference Range Interpretation Comments SARS-CoV-2 INTERPRETATION (test NEGATIVE code = 97189) SOURCE (test code = 19959) NOT SPECIFIED SARS-CoV-2 (COVID-19) by RT-PCR (HIGH RISK)2020-06-05 00:00:00 Test Item Value Reference Range Interpretation Comments SARS-CoV-2 INTERPRETATION (test NEGATIVE code = 27368) SOURCE (test code = 72471) NOT SPECIFIED SARS-CoV-2 (COVID-19) by RT-PCR (HIGH RISK)2020-06-05 00:00:00 Test Item Value Reference Range Interpretation Comments SARS-CoV-2 INTERPRETATION (test NEGATIVE code = 66678) SOURCE (test code = 77655) NOT SPECIFIED SARS-CoV-2 (COVID-19) by RT-PCR (HIGH RISK)2020-06-05 00:00:00 Test Item Value Reference Range Interpretation Comments SARS-CoV-2 INTERPRETATION (test NEGATIVE code = 58556) SOURCE (test code = 15125) NOT SPECIFIED SARS-CoV-2 (COVID-19) by RT-PCR (HIGH RISK)2020-06-05 00:00:00 Test Item Value Reference Range Interpretation Comments SARS-CoV-2 INTERPRETATION (test NEGATIVE code = 66747) SOURCE (test code = 84913) NOT SPECIFIED SARS-CoV-2 (COVID-19) by RT-PCR (HIGH RISK)2020-06-05 00:00:00 Test Item Value Reference Range Interpretation Comments SARS-CoV-2 INTERPRETATION (test NEGATIVE code = 42246) SOURCE (test code = 71581) NOT SPECIFIED SARS-CoV-2 (COVID-19) by RT-PCR (HIGH RISK)2020-06-05 00:00:00 Test Item Value Reference Range Interpretation Comments SARS-CoV-2 INTERPRETATION (test NEGATIVE code = 49747) SOURCE (test code = 44434) NOT SPECIFIED HCV RNA, PCR [id number] 00:00:00 Test Item Value Reference Range Interpretation Comments HCV RNA, PCR QUANT Not Detected IU/mL (test code = 4571) HCV VIRAL LOG (test Not Detected logIU/mL code = 52449) HCV RNA, PCR [id number] 00:00:00 Test Item Value Reference Range Interpretation Comments HCV RNA, PCR QUANT Not Detected IU/mL (test code = 4571) HCV VIRAL LOG (test Not Detected logIU/mL code = 48602) HCV RNA, PCR [id number] 00:00:00 Test Item Value Reference Range Interpretation Comments HCV RNA, PCR QUANT Not Detected IU/mL (test code = 4571) HCV VIRAL LOG (test Not Detected logIU/mL code = 27268) HCV RNA, PCR [id number] 00:00:00 Test Item Value Reference Range Interpretation Comments HCV RNA, PCR QUANT Not Detected IU/mL (test code = 4571) HCV VIRAL LOG (test Not Detected logIU/mL code = 22341) HCV RNA, PCR [id number] 00:00:00 Test Item Value Reference Range Interpretation Comments HCV RNA, PCR QUANT Not Detected IU/mL (test code = 4571) HCV VIRAL LOG (test Not Detected logIU/mL code = 43532) HCV RNA, PCR [id number] 00:00:00 Test Item Value Reference Range Interpretation Comments HCV RNA, PCR QUANT Not Detected IU/mL (test code = 4571) HCV VIRAL LOG (test Not Detected logIU/mL code = 45416) HCV RNA, PCR [id number] 00:00:00 Test Item Value Reference Range Interpretation Comments HCV RNA, PCR QUANT Not Detected IU/mL (test code = 4571) HCV VIRAL LOG (test Not Detected logIU/mL code = 73381) HCV RNA, PCR [id number] 00:00:00 Test Item Value Reference Range Interpretation Comments HCV RNA, PCR QUANT Not Detected IU/mL (test code = 4571) HCV VIRAL LOG (test Not Detected logIU/mL code = 66312) HCV RNA, PCR [id number] 00:00:00 Test Item Value Reference Range Interpretation Comments HCV RNA, PCR QUANT Not Detected IU/mL (test code = 4571) HCV VIRAL LOG (test Not Detected logIU/mL code = 27402) HCV RNA, PCR [id number] 00:00:00 Test Item Value Reference Range Interpretation Comments HCV RNA, PCR QUANT Not Detected IU/mL (test code = 4571) HCV VIRAL LOG (test Not Detected logIU/mL code = 81177) HCV RNA, PCR [id number] 00:00:00 Test Item Value Reference Range Interpretation Comments HCV RNA, PCR QUANT Not Detected IU/mL (test code = 4571) HCV VIRAL LOG (test Not Detected logIU/mL code = 95041) HCV RNA, PCR [id number] 00:00:00 Test Item Value Reference Range Interpretation Comments HCV RNA, PCR QUANT Not Detected IU/mL (test code = 4571) HCV VIRAL LOG (test Not Detected logIU/mL code = 61751) HCV RNA, PCR [id number] 00:00:00 Test Item Value Reference Range Interpretation Comments HCV RNA, PCR QUANT Not Detected IU/mL (test code = 4571) HCV VIRAL LOG (test Not Detected logIU/mL code = 93674) HCV RNA, PCR [id number] 00:00:00 Test Item Value Reference Range Interpretation Comments HCV RNA, PCR QUANT Not Detected IU/mL (test code = 4571) HCV VIRAL LOG (test Not Detected logIU/mL code = 12188) HCV RNA, PCR [id number] 00:00:00 Test Item Value Reference Range Interpretation Comments HCV RNA, PCR QUANT Not Detected IU/mL (test code = 4571) HCV VIRAL LOG (test Not Detected logIU/mL code = 66778) HCV RNA, PCR [id number] 00:00:00 Test Item Value Reference Range Interpretation Comments HCV RNA, PCR QUANT Not Detected IU/mL (test code = 4571) HCV VIRAL LOG (test Not Detected logIU/mL code = 59201) HCV RNA, PCR [id number] 00:00:00 Test Item Value Reference Range Interpretation Comments HCV RNA, PCR QUANT Not Detected IU/mL (test code = 4571) HCV VIRAL LOG (test Not Detected logIU/mL code = 09411) LIVER (HEPATIC) FUNCTION [id number] 00:00:00 Test Item Value Reference Range Interpretation [...] = 2219) 12 U/L LIVER (HEPATIC) FUNCTION [id number] 00:00:00 Test Item Value Reference Range Interpretation Comments PROTEIN, TOTAL (test code = 2229) 6.6 G/DL ALBUMIN (test code = 2201) 4.0 G/DL BILIRUBIN, TOTAL (test code = 2207) 0.4 MG/DL BILIRUBIN, DIRECT (test code = 0.1 MG/DL 2021) ALKALINE PHOSPHATASE (test code = 137 U/L 2204) AST (test code = 2218) 13 U/L ALT (test code = 2219) 12 U/L LIVER (HEPATIC) FUNCTION [id number] 00:00:00 Test Item Value Reference Range Interpretation [...] = 2219) 12 U/L LIVER (HEPATIC) FUNCTION [id number] 00:00:00 Test Item Value Reference Range Interpretation [...] = 2219) 12 U/L LIVER (HEPATIC) FUNCTION [id number] 00:00:00 Test Item Value Reference Range Interpretation [...] = 2219) 12 U/L LIVER (HEPATIC) FUNCTION [id number] 00:00:00 Test Item Value Reference Range Interpretation [...] = 2219) 12 U/L LIVER (HEPATIC) FUNCTION [id number] 00:00:00 Test Item Value Reference Range Interpretation [...] = 2219) 12 U/L LIVER (HEPATIC) FUNCTION [id number] 00:00:00 Test Item Value Reference Range Interpretation [...] = 2219) 12 U/L LIVER (HEPATIC) FUNCTION [id number] 00:00:00 Test Item Value Reference Range Interpretation [...] = 2219) 12 U/L LIVER (HEPATIC) FUNCTION [id number] 00:00:00 Test Item Value Reference Range Interpretation Comments PROTEIN, TOTAL (test code = 2229) 6.6 G/DL ALBUMIN (test code = 2201) 4.0 G/DL BILIRUBIN, TOTAL (test code = 2207) 0.4 MG/DL BILIRUBIN, DIRECT (test code = 0.1 MG/DL 2021) ALKALINE PHOSPHATASE (test code = 137 U/L 2204) AST (test code = 2218) 13 U/L ALT (test code = 2219) 12 U/L LIVER (HEPATIC) FUNCTION [id number] 00:00:00 Test Item Value Reference Range Interpretation [...] = 2219) 12 U/L HCV RNA, PCR [id number] 00:00:00 Test Item Value Reference Range Interpretation Comments HCV RNA, PCR QUANT (test NOT DETEC IU/ML code = 4571) HCV VIRAL LOG (test code = NOT DETEC LOGIU/ML 35733) HCV RNA, PCR [id number] 00:00:00 Test Item Value Reference Range Interpretation Comments HCV RNA, PCR QUANT (test NOT DETEC IU/ML code = 4571) HCV VIRAL LOG (test code = NOT DETEC LOGIU/ML 22200) HCV RNA, PCR [id number] 00:00:00 Test Item Value Reference Range Interpretation Comments HCV RNA, PCR QUANT (test NOT DETEC IU/ML code = 4571) HCV VIRAL LOG (test code = NOT DETEC LOGIU/ML 02443) HCV RNA, PCR [id number] 00:00:00 Test Item Value Reference Range Interpretation Comments HCV RNA, PCR QUANT (test NOT DETEC IU/ML code = 4571) HCV VIRAL LOG (test code = NOT DETEC LOGIU/ML 81616) HCV RNA, PCR [id number] 00:00:00 Test Item Value Reference Range Interpretation Comments HCV RNA, PCR QUANT (test NOT DETEC IU/ML code = 4571) HCV VIRAL LOG (test code = NOT DETEC LOGIU/ML 11986) HCV RNA, PCR [id number] 00:00:00 Test Item Value Reference Range Interpretation Comments HCV RNA, PCR QUANT (test NOT DETEC IU/ML code = 4571) HCV VIRAL LOG (test code = NOT DETEC LOGIU/ML 32045) HCV RNA, PCR [id number] 00:00:00 Test Item Value Reference Range Interpretation Comments HCV RNA, PCR QUANT (test NOT DETEC IU/ML code = 4571) HCV VIRAL LOG (test code = NOT DETEC LOGIU/ML 36120) HCV RNA, PCR [id number] 00:00:00 Test Item Value Reference Range Interpretation Comments HCV RNA, PCR QUANT (test NOT DETEC IU/ML code = 4571) HCV VIRAL LOG (test code = NOT DETEC LOGIU/ML 94466) HCV RNA, PCR [id number] 00:00:00 Test Item Value Reference Range Interpretation Comments HCV RNA, PCR QUANT (test NOT DETEC IU/ML code = 4571) HCV VIRAL LOG (test code = NOT DETEC LOGIU/ML 57812) HCV RNA, PCR [id number] 00:00:00 Test Item Value Reference Range Interpretation Comments HCV RNA, PCR QUANT (test NOT DETEC IU/ML code = 4571) HCV VIRAL LOG (test code = NOT DETEC LOGIU/ML 97650) HCV RNA, PCR [id number] 00:00:00 Test Item Value Reference Range Interpretation Comments HCV RNA, PCR QUANT (test NOT DETEC IU/ML code = 4571) HCV VIRAL LOG (test code = NOT DETEC LOGIU/ML 86248) HCV RNA, PCR [id number] 00:00:00 Test Item Value Reference Range Interpretation Comments HCV RNA, PCR QUANT (test NOT DETEC IU/ML code = 4571) HCV VIRAL LOG (test code = NOT DETEC LOGIU/ML 99868) HCV RNA, PCR [id number] 00:00:00 Test Item Value Reference Range Interpretation Comments HCV RNA, PCR QUANT (test NOT DETEC IU/ML code = 4571) HCV VIRAL LOG (test code = NOT DETEC LOGIU/ML 51969) HCV RNA, PCR [id number] 00:00:00 Test Item Value Reference Range Interpretation Comments HCV RNA, PCR QUANT (test NOT DETEC IU/ML code = 4571) HCV VIRAL LOG (test code = NOT DETEC LOGIU/ML 70152) HCV RNA, PCR [id number] 00:00:00 Test Item Value Reference Range Interpretation Comments HCV RNA, PCR QUANT (test NOT DETEC IU/ML code = 4571) HCV VIRAL LOG (test code = NOT DETEC LOGIU/ML 32704) HCV RNA, PCR [id number] 00:00:00 Test Item Value Reference Range Interpretation Comments HCV RNA, PCR QUANT (test NOT DETEC IU/ML code = 4571) HCV VIRAL LOG (test code = NOT DETEC LOGIU/ML 17911) HCV RNA, PCR [id number] 00:00:00 Test Item Value Reference Range Interpretation Comments HCV RNA, PCR QUANT (test NOT DETEC IU/ML code = 4571) HCV VIRAL LOG (test code = NOT DETEC LOGIU/ML 77627) LIVER (HEPATIC) FUNCTION [id number] 00:00:00 Test Item Value Reference Range Interpretation [...] = 2219) 7 U/L LIVER (HEPATIC) FUNCTION [id number] 00:00:00 Test Item Value Reference Range Interpretation [...] = 2219) 7 U/L LIVER (HEPATIC) FUNCTION [id number] 00:00:00 Test Item Value Reference Range Interpretation [...] = 2219) 7 U/L LIVER (HEPATIC) FUNCTION [id number] 00:00:00 Test Item Value Reference Range Interpretation Comments PROTEIN, TOTAL (test code = 2229) 7.1 G/DL ALBUMIN (test code = 2201) 4.3 G/DL BILIRUBIN, TOTAL (test code = 2207) 0.3 MG/DL BILIRUBIN, DIRECT (test code = 0.1 MG/DL 2021) ALKALINE PHOSPHATASE (test code = 148 U/L 2204) AST (test code = 2218) 15 U/L ALT (test code = 2219) 7 U/L LIVER (HEPATIC) FUNCTION [id number] 00:00:00 Test Item Value Reference Range Interpretation [...] = 2219) 7 U/L LIVER (HEPATIC) FUNCTION [id number] 00:00:00 Test Item Value Reference Range Interpretation [...] = 2219) 7 U/L LIVER (HEPATIC) FUNCTION [id number] 00:00:00 Test Item Value Reference Range Interpretation [...] = 2219) 7 U/L LIVER (HEPATIC) FUNCTION [id number] 00:00:00 Test Item Value Reference Range Interpretation Comments PROTEIN, TOTAL (test code = 2229) 7.1 G/DL ALBUMIN (test code = 2201) 4.3 G/DL BILIRUBIN, TOTAL (test code = 2207) 0.3 MG/DL BILIRUBIN, DIRECT (test code = 0.1 MG/DL 2021) ALKALINE PHOSPHATASE (test code = 148 U/L 220) AST (test code = 2218) 15 U/L ALT (test code = 2219) 7 U/L LIVER (HEPATIC) FUNCTION [id number] 00:00:00 Test Item Value Reference Range Interpretation [...] = 2219) 7 U/L LIVER (HEPATIC) FUNCTION [id number] 00:00:00 Test Item Value Reference Range Interpretation [...] = 2219) 7 U/L LIVER (HEPATIC) FUNCTION [id number] 00:00:00 Test Item Value Reference Range Interpretation Comments PROTEIN, TOTAL (test code = 2229) 7.1 G/DL ALBUMIN (test code = 2201) 4.3 G/DL BILIRUBIN, TOTAL (test code = 2207) 0.3 MG/DL BILIRUBIN, DIRECT (test code = 0.1 MG/DL 2021) ALKALINE PHOSPHATASE (test code = 148 U/L 2203) AST (test code = 2218) 15 U/L ALT (test code = 2219) 7 U/L HEPATITIS C [id number] 00:00:00 Test Item Value Reference Range Interpretation Comments HEPATITIS C GENOTYPE (test code = 1a 79866) HEPATITIS C [id number] 00:00:00 Test Item Value Reference Range Interpretation Comments HEPATITIS C GENOTYPE (test code = 1a 95626) HEPATITIS C [id number] 00:00:00 Test Item Value Reference Range Interpretation Comments HEPATITIS C GENOTYPE (test code = 1a 64027) HEPATITIS C [id number] 00:00:00 Test Item Value Reference Range Interpretation Comments HEPATITIS C GENOTYPE (test code = 1a 88241) HEPATITIS C [id number] 00:00:00 Test Item Value Reference Range Interpretation Comments HEPATITIS C GENOTYPE (test code = 1a 38084) HEPATITIS C [id number] 00:00:00 Test Item Value Reference Range Interpretation Comments HEPATITIS C GENOTYPE (test code = 1a 31576) HEPATITIS C [id number] 00:00:00 Test Item Value Reference Range Interpretation Comments HEPATITIS C GENOTYPE (test code = 1a 80595) HEPATITIS C [id number] 00:00:00 Test Item Value Reference Range Interpretation Comments HEPATITIS C GENOTYPE (test code = 1a 40075) HEPATITIS C [id number] 00:00:00 Test Item Value Reference Range Interpretation Comments HEPATITIS C GENOTYPE (test code = 1a 40408) HEPATITIS C [id number] 00:00:00 Test Item Value Reference Range Interpretation Comments HEPATITIS C GENOTYPE (test code = 1a 71930) HEPATITIS C [id number] 00:00:00 Test Item Value Reference Range Interpretation Comments HEPATITIS C GENOTYPE (test code = 1a 49565) HEPATITIS Bs AB [id number] 00:00:00 Test Item Value Reference Range Interpretation Comments HEPATITIS Bs AB QUANT (test code 0.05 MIU/ML = 2738) HEPATITIS Bs AB [id number] 00:00:00 Test Item Value Reference Range Interpretation Comments HEPATITIS Bs AB QUANT (test code 0.05 MIU/ML = 2738) MITOCHONDRIAL M2 [id number] 00:00:00 Test Item Value Reference Range Interpretation Comments MITOCHONDRIAL M2 AB (test code = 30.9 UNITS 4634) ALKALINE PHOSPHATASE [id number] 00:00:00 Test Item Value Reference Range Interpretation Comments ALKALINE PHOSPHATASE (test code = 196 U/L 53133) ALK PHOS, LIVER 1% (test code = 37.3 % 50649) ALK PHOS, LIVER 1 ABS (test code = 73.1 U/L 50319) ALK PHOS, LIVER 2% (test code = 4.5 % 11004) ALK PHOS, LIVER 2 ABS (test code = 8.8 U/L 36222) ALK PHOS, BONE % (test code = 47782) 44.0 % ALK PHOS, BONE ABS (test code = 86.2 U/L 69130) ALK PHOS, INTESTINE % (test code = 14.2 % 87314) ALK PHOS, INTESTINE ABS (test code = 27.8 U/L 196249) ALK PHOS, PLACENTAL % (test code = 0.0 % 853734) ALK PHOS, PLACENTAL ABS (test code = 0.0 U/L 830037) ALKALINE PHOSPHATASE [id number] 00:00:00 Test Item Value Reference Range Interpretation Comments ALKALINE PHOSPHATASE (test code = 196 U/L 75263) ALK PHOS, LIVER 1% (test code = 37.3 % 36548) ALK PHOS, LIVER 1 ABS (test code = 73.1 U/L 06620) ALK PHOS, LIVER 2% (test code = 4.5 % 84567) ALK PHOS, LIVER 2 ABS (test code = 8.8 U/L 14591) ALK PHOS, BONE % (test code = 01685) 44.0 % ALK PHOS, BONE ABS (test code = 86.2 U/L 80302) ALK PHOS, INTESTINE % (test code = 14.2 % 70222) ALK PHOS, INTESTINE ABS (test code = 27.8 U/L 364569) ALK PHOS, PLACENTAL % (test code = 0.0 % 066484) ALK PHOS, PLACENTAL ABS (test code = 0.0 U/L 677972) HIV AB/AG COMBO RFLX [id number] 00:00:00 Test Item Value Reference Range Interpretation Comments HIV 1/2 4TH GEN, RFLX CONF (test NON-REACTIVE code = 3514) HEP B CORE TOTAL [id number] 00:00:00 Test Item Value Reference Range Interpretation Comments HEP B CORE TOTAL AB (test code = NON-REACTIVE 2729) HEP B CORE TOTAL [id number] 00:00:00 Test Item Value Reference Range Interpretation Comments HEP B CORE TOTAL AB (test code = NON-REACTIVE 2729) HEP B CORE TOTAL [id number] 00:00:00 Test Item Value Reference Range Interpretation Comments HEP B CORE TOTAL AB (test code = NON-REACTIVE 2729) HEPATITIS Bs AB [id number] 00:00:00 Test Item Value Reference Range Interpretation Comments HEPATITIS Bs AB QUANT (test code 0.05 MIU/ML = 2738) HEPATITIS Bs AB [id number] 00:00:00 Test Item Value Reference Range Interpretation Comments HEPATITIS Bs AB QUANT (test code 0.05 MIU/ML = 2738) HEPATITIS Bs AB [id number] 00:00:00 Test Item Value Reference Range Interpretation Comments HEPATITIS Bs AB QUANT (test code 0.05 MIU/ML = 2738) MITOCHONDRIAL M2 [id number] 00:00:00 Test Item Value Reference Range Interpretation Comments MITOCHONDRIAL M2 AB (test code = 30.9 UNITS 4634) MITOCHONDRIAL M2 [id number] 00:00:00 Test Item Value Reference Range Interpretation Comments MITOCHONDRIAL M2 AB (test code = 30.9 UNITS 4634) ALKALINE PHOSPHATASE [id number] 00:00:00 Test Item Value Reference Range Interpretation Comments ALKALINE PHOSPHATASE (test code = 196 U/L 76517) ALK PHOS, LIVER 1% (test code = 37.3 % 33927) ALK PHOS, LIVER 1 ABS (test code = 73.1 U/L 78608) ALK PHOS, LIVER 2% (test code = 4.5 % 71516) ALK PHOS, LIVER 2 ABS (test code = 8.8 U/L 01897) ALK PHOS, BONE % (test code = 91790) 44.0 % ALK PHOS, BONE ABS (test code = 86.2 U/L 22739) ALK PHOS, INTESTINE % (test code = 14.2 % 01342) ALK PHOS, INTESTINE ABS (test code = 27.8 U/L 272612) ALK PHOS, PLACENTAL % (test code = 0.0 % 656853) ALK PHOS, PLACENTAL ABS (test code = 0.0 U/L 463869) ALKALINE PHOSPHATASE [id number] 00:00:00 Test Item Value Reference Range Interpretation Comments ALKALINE PHOSPHATASE (test code = 196 U/L 21995) ALK PHOS, LIVER 1% (test code = 37.3 % 22665) ALK PHOS, LIVER 1 ABS (test code = 73.1 U/L 30616) ALK PHOS, LIVER 2% (test code = 4.5 % 17455) ALK PHOS, LIVER 2 ABS (test code = 8.8 U/L 61447) ALK PHOS, BONE % (test code = 30952) 44.0 % ALK PHOS, BONE ABS (test code = 86.2 U/L 01481) ALK PHOS, INTESTINE % (test code = 14.2 % 31881) ALK PHOS, INTESTINE ABS (test code = 27.8 U/L 017815) ALK PHOS, PLACENTAL % (test code = 0.0 % 203816) ALK PHOS, PLACENTAL ABS (test code = 0.0 U/L 817528) ALKALINE PHOSPHATASE [id number] 00:00:00 Test Item Value Reference Range Interpretation Comments ALKALINE PHOSPHATASE (test code = 196 U/L 70986) ALK PHOS, LIVER 1% (test code = 37.3 % 18853) ALK PHOS, LIVER 1 ABS (test code = 73.1 U/L 38318) ALK PHOS, LIVER 2% (test code = 4.5 % 39426) ALK PHOS, LIVER 2 ABS (test code = 8.8 U/L 61742) ALK PHOS, BONE % (test code = 00759) 44.0 % ALK PHOS, BONE ABS (test code = 86.2 U/L 74405) ALK PHOS, INTESTINE % (test code = 14.2 % 87959) ALK PHOS, INTESTINE ABS (test code = 27.8 U/L 035522) ALK PHOS, PLACENTAL % (test code = 0.0 % 361577) ALK PHOS, PLACENTAL ABS (test code = 0.0 U/L 496142) HIV AB/AG COMBO RFLX [id number] 00:00:00 Test Item Value Reference Range Interpretation Comments HIV 1/2 4TH GEN, RFLX CONF (test NON-REACTIVE code = 3514) HIV AB/AG COMBO RFLX [id number] 00:00:00 Test Item Value Reference Range Interpretation Comments HIV 1/2 4TH GEN, RFLX CONF (test NON-REACTIVE code = 3514) HEP B CORE TOTAL [id number] 00:00:00 Test Item Value Reference Range Interpretation Comments HEP B CORE TOTAL AB (test code = NON-REACTIVE 2729) HEP B CORE TOTAL [id number] 00:00:00 Test Item Value Reference Range Interpretation Comments HEP B CORE TOTAL AB (test code = NON-REACTIVE 2729) HEP B CORE TOTAL [id number] 00:00:00 Test Item Value Reference Range Interpretation Comments HEP B CORE TOTAL AB (test code = NON-REACTIVE 2729) HEPATITIS Bs AB [id number] 00:00:00 Test Item Value Reference Range Interpretation Comments HEPATITIS Bs AB QUANT (test code 0.05 MIU/ML = 2738) HEPATITIS Bs AB [id number] 00:00:00 Test Item Value Reference Range Interpretation Comments HEPATITIS Bs AB QUANT (test code 0.05 MIU/ML = 2738) HEPATITIS Bs AB [id number] 00:00:00 Test Item Value Reference Range Interpretation Comments HEPATITIS Bs AB QUANT (test code 0.05 MIU/ML = 2738) MITOCHONDRIAL M2 [id number] 00:00:00 Test Item Value Reference Range Interpretation Comments MITOCHONDRIAL M2 AB (test code = 30.9 UNITS 4634) MITOCHONDRIAL M2 [id number] 00:00:00 Test Item Value Reference Range Interpretation Comments MITOCHONDRIAL M2 AB (test code = 30.9 UNITS 4634) ALKALINE PHOSPHATASE [id number] 00:00:00 Test Item Value Reference Range Interpretation Comments ALKALINE PHOSPHATASE (test code = 196 U/L 58224) ALK PHOS, LIVER 1% (test code = 37.3 % 25016) ALK PHOS, LIVER 1 ABS (test code = 73.1 U/L 42157) ALK PHOS, LIVER 2% (test code = 4.5 % 81043) ALK PHOS, LIVER 2 ABS (test code = 8.8 U/L 08675) ALK PHOS, BONE % (test code = 56068) 44.0 % ALK PHOS, BONE ABS (test code = 86.2 U/L 60967) ALK PHOS, INTESTINE % (test code = 14.2 % 70528) ALK PHOS, INTESTINE ABS (test code = 27.8 U/L 389271) ALK PHOS, PLACENTAL % (test code = 0.0 % 465237) ALK PHOS, PLACENTAL ABS (test code = 0.0 U/L 611842) ALKALINE PHOSPHATASE [id number] 00:00:00 Test Item Value Reference Range Interpretation Comments ALKALINE PHOSPHATASE (test code = 196 U/L 28985) ALK PHOS, LIVER 1% (test code = 37.3 % 28277) ALK PHOS, LIVER 1 ABS (test code = 73.1 U/L 58224) ALK PHOS, LIVER 2% (test code = 4.5 % 60801) ALK PHOS, LIVER 2 ABS (test code = 8.8 U/L 81360) ALK PHOS, BONE % (test code = 38939) 44.0 % ALK PHOS, BONE ABS (test code = 86.2 U/L 63352) ALK PHOS, INTESTINE % (test code = 14.2 % 99925) ALK PHOS, INTESTINE ABS (test code = 27.8 U/L 005357) ALK PHOS, PLACENTAL % (test code = 0.0 % 328488) ALK PHOS, PLACENTAL ABS (test code = 0.0 U/L 648926) ALKALINE PHOSPHATASE [id number] 00:00:00 Test Item Value Reference Range Interpretation Comments ALKALINE PHOSPHATASE (test code = 196 U/L 35182) ALK PHOS, LIVER 1% (test code = 37.3 % 65453) ALK PHOS, LIVER 1 ABS (test code = 73.1 U/L 23300) ALK PHOS, LIVER 2% (test code = 4.5 % 08274) ALK PHOS, LIVER 2 ABS (test code = 8.8 U/L 41772) ALK PHOS, BONE % (test code = 39695) 44.0 % ALK PHOS, BONE ABS (test code = 86.2 U/L 25573) ALK PHOS, INTESTINE % (test code = 14.2 % 14463) ALK PHOS, INTESTINE ABS (test code = 27.8 U/L 583948) ALK PHOS, PLACENTAL % (test code = 0.0 % 509024) ALK PHOS, PLACENTAL ABS (test code = 0.0 U/L 260098) HIV AB/AG COMBO RFLX [id number] 00:00:00 Test Item Value Reference Range Interpretation Comments HIV 1/2 4TH GEN, RFLX CONF (test NON-REACTIVE code = 3514) HIV AB/AG COMBO RFLX [id number] 00:00:00 Test Item Value Reference Range Interpretation Comments HIV 1/2 4TH GEN, RFLX CONF (test NON-REACTIVE code = 3514) HEP B CORE TOTAL [id number] 00:00:00 Test Item Value Reference Range Interpretation Comments HEP B CORE TOTAL AB (test code = NON-REACTIVE 2729) HEP B CORE TOTAL [id number] 00:00:00 Test Item Value Reference Range Interpretation Comments HEP B CORE TOTAL AB (test code = NON-REACTIVE 2729) HEP B CORE TOTAL [id number] 00:00:00 Test Item Value Reference Range Interpretation Comments HEP B CORE TOTAL AB (test code = NON-REACTIVE 2729) HEPATITIS Bs AB [id number] 00:00:00 Test Item Value Reference Range Interpretation Comments HEPATITIS Bs AB QUANT (test code 0.05 MIU/ML = 2738) HEPATITIS Bs AB [id number] 00:00:00 Test Item Value Reference Range Interpretation Comments HEPATITIS Bs AB QUANT (test code 0.05 MIU/ML = 2738) HEPATITIS Bs AB [id number] 00:00:00 Test Item Value Reference Range Interpretation Comments HEPATITIS Bs AB QUANT (test code 0.05 MIU/ML = 2738) MITOCHONDRIAL M2 [id number] 00:00:00 Test Item Value Reference Range Interpretation Comments MITOCHONDRIAL M2 AB (test code = 30.9 UNITS 4634) MITOCHONDRIAL M2 [id number] 00:00:00 Test Item Value Reference Range Interpretation Comments MITOCHONDRIAL M2 AB (test code = 30.9 UNITS 4634) ALKALINE PHOSPHATASE [id number] 00:00:00 Test Item Value Reference Range Interpretation Comments ALKALINE PHOSPHATASE (test code = 196 U/L 83839) ALK PHOS, LIVER 1% (test code = 37.3 % 50270) ALK PHOS, LIVER 1 ABS (test code = 73.1 U/L 54543) ALK PHOS, LIVER 2% (test code = 4.5 % 35917) ALK PHOS, LIVER 2 ABS (test code = 8.8 U/L 46358) ALK PHOS, BONE % (test code = 92666) 44.0 % ALK PHOS, BONE ABS (test code = 86.2 U/L 07369) ALK PHOS, INTESTINE % (test code = 14.2 % 58541) ALK PHOS, INTESTINE ABS (test code = 27.8 U/L 025971) ALK PHOS, PLACENTAL % (test code = 0.0 % 443350) ALK PHOS, PLACENTAL ABS (test code = 0.0 U/L 618960) ALKALINE PHOSPHATASE [id number] 00:00:00 Test Item Value Reference Range Interpretation Comments ALKALINE PHOSPHATASE (test code = 196 U/L 65797) ALK PHOS, LIVER 1% (test code = 37.3 % 95322) ALK PHOS, LIVER 1 ABS (test code = 73.1 U/L 02525) ALK PHOS, LIVER 2% (test code = 4.5 % 36121) ALK PHOS, LIVER 2 ABS (test code = 8.8 U/L 14606) ALK PHOS, BONE % (test code = 47030) 44.0 % ALK PHOS, BONE ABS (test code = 86.2 U/L 04401) ALK PHOS, INTESTINE % (test code = 14.2 % 83125) ALK PHOS, INTESTINE ABS (test code = 27.8 U/L 313056) ALK PHOS, PLACENTAL % (test code = 0.0 % 114984) ALK PHOS, PLACENTAL ABS (test code = 0.0 U/L 667585) ALKALINE PHOSPHATASE [id number] 00:00:00 Test Item Value Reference Range Interpretation Comments ALKALINE PHOSPHATASE (test code = 196 U/L 00102) ALK PHOS, LIVER 1% (test code = 37.3 % 52784) ALK PHOS, LIVER 1 ABS (test code = 73.1 U/L 61854) ALK PHOS, LIVER 2% (test code = 4.5 % 64424) ALK PHOS, LIVER 2 ABS (test code = 8.8 U/L 34747) ALK PHOS, BONE % (test code = 73276) 44.0 % ALK PHOS, BONE ABS (test code = 86.2 U/L 03087) ALK PHOS, INTESTINE % (test code = 14.2 % 91144) ALK PHOS, INTESTINE ABS (test code = 27.8 U/L 556846) ALK PHOS, PLACENTAL % (test code = 0.0 % 216892) ALK PHOS, PLACENTAL ABS (test code = 0.0 U/L 915919) HIV AB/AG COMBO RFLX [id number] 00:00:00 Test Item Value Reference Range Interpretation Comments HIV 1/2 4TH GEN, RFLX CONF (test NON-REACTIVE code = 3514) HIV AB/AG COMBO RFLX [id number] 00:00:00 Test Item Value Reference Range Interpretation Comments HIV 1/2 4TH GEN, RFLX CONF (test NON-REACTIVE code = 3514) HEP B CORE TOTAL [id number] 00:00:00 Test Item Value Reference Range Interpretation Comments HEP B CORE TOTAL AB (test code = NON-REACTIVE 2729) HEP B CORE TOTAL [id number] 00:00:00 Test Item Value Reference Range Interpretation Comments HEP B CORE TOTAL AB (test code = NON-REACTIVE 2729) HEP B CORE TOTAL [id number] 00:00:00 Test Item Value Reference Range Interpretation Comments HEP B CORE TOTAL AB (test code = NON-REACTIVE 2729) HEPATITIS Bs AB [id number] 00:00:00 Test Item Value Reference Range Interpretation Comments HEPATITIS Bs AB QUANT (test code 0.05 MIU/ML = 2738) HEPATITIS Bs AB [id number] 00:00:00 Test Item Value Reference Range Interpretation Comments HEPATITIS Bs AB QUANT (test code 0.05 MIU/ML = 2738) HEPATITIS Bs AB [id number] 00:00:00 Test Item Value Reference Range Interpretation Comments HEPATITIS Bs AB QUANT (test code 0.05 MIU/ML = 2738) MITOCHONDRIAL M2 [id number] 00:00:00 Test Item Value Reference Range Interpretation Comments MITOCHONDRIAL M2 AB (test code = 30.9 UNITS 4634) MITOCHONDRIAL M2 [id number] 00:00:00 Test Item Value Reference Range Interpretation Comments MITOCHONDRIAL M2 AB (test code = 30.9 UNITS 4634) ALKALINE PHOSPHATASE [id number] 00:00:00 Test Item Value Reference Range Interpretation Comments ALKALINE PHOSPHATASE (test code = 196 U/L 98787) ALK PHOS, LIVER 1% (test code = 37.3 % 00544) ALK PHOS, LIVER 1 ABS (test code = 73.1 U/L 40934) ALK PHOS, LIVER 2% (test code = 4.5 % 99361) ALK PHOS, LIVER 2 ABS (test code = 8.8 U/L 01258) ALK PHOS, BONE % (test code = 59846) 44.0 % ALK PHOS, BONE ABS (test code = 86.2 U/L 97164) ALK PHOS, INTESTINE % (test code = 14.2 % 35952) ALK PHOS, INTESTINE ABS (test code = 27.8 U/L 069631) ALK PHOS, PLACENTAL % (test code = 0.0 % 837383) ALK PHOS, PLACENTAL ABS (test code = 0.0 U/L 494848) ALKALINE PHOSPHATASE [id number] 00:00:00 Test Item Value Reference Range Interpretation Comments ALKALINE PHOSPHATASE (test code = 196 U/L 19028) ALK PHOS, LIVER 1% (test code = 37.3 % 30949) ALK PHOS, LIVER 1 ABS (test code = 73.1 U/L 16878) ALK PHOS, LIVER 2% (test code = 4.5 % 68777) ALK PHOS, LIVER 2 ABS (test code = 8.8 U/L 06734) ALK PHOS, BONE % (test code = 54992) 44.0 % ALK PHOS, BONE ABS (test code = 86.2 U/L 37444) ALK PHOS, INTESTINE % (test code = 14.2 % 62840) ALK PHOS, INTESTINE ABS (test code = 27.8 U/L 714685) ALK PHOS, PLACENTAL % (test code = 0.0 % 417373) ALK PHOS, PLACENTAL ABS (test code = 0.0 U/L 560258) ALKALINE PHOSPHATASE [id number] 00:00:00 Test Item Value Reference Range Interpretation Comments ALKALINE PHOSPHATASE (test code = 196 U/L 98517) ALK PHOS, LIVER 1% (test code = 37.3 % 55036) ALK PHOS, LIVER 1 ABS (test code = 73.1 U/L 99835) ALK PHOS, LIVER 2% (test code = 4.5 % 82999) ALK PHOS, LIVER 2 ABS (test code = 8.8 U/L 94617) ALK PHOS, BONE % (test code = 49562) 44.0 % ALK PHOS, BONE ABS (test code = 86.2 U/L 57433) ALK PHOS, INTESTINE % (test code = 14.2 % 29043) ALK PHOS, INTESTINE ABS (test code = 27.8 U/L 107289) ALK PHOS, PLACENTAL % (test code = 0.0 % 318093) ALK PHOS, PLACENTAL ABS (test code = 0.0 U/L 437360) HIV AB/AG COMBO RFLX [id number] 00:00:00 Test Item Value Reference Range Interpretation Comments HIV 1/2 4TH GEN, RFLX CONF (test NON-REACTIVE code = 3514) HIV AB/AG COMBO RFLX [id number] 00:00:00 Test Item Value Reference Range Interpretation Comments HIV 1/2 4TH GEN, RFLX CONF (test NON-REACTIVE code = 3514) HEP B CORE TOTAL [id number] 00:00:00 Test Item Value Reference Range Interpretation Comments HEP B CORE TOTAL AB (test code = NON-REACTIVE 2729) HEP B CORE TOTAL [id number] 00:00:00 Test Item Value Reference Range Interpretation Comments HEP B CORE TOTAL AB (test code = NON-REACTIVE 2729) HEP B CORE TOTAL [id number] 00:00:00 Test Item Value Reference Range Interpretation Comments HEP B CORE TOTAL AB (test code = NON-REACTIVE 2729) HEPATITIS Bs AB [id number] 00:00:00 Test Item Value Reference Range Interpretation Comments HEPATITIS Bs AB QUANT (test code 0.05 MIU/ML = 2738) HEPATITIS Bs AB [id number] 00:00:00 Test Item Value Reference Range Interpretation Comments HEPATITIS Bs AB QUANT (test code 0.05 MIU/ML = 2738) HEPATITIS Bs AB [id number] 00:00:00 Test Item Value Reference Range Interpretation Comments HEPATITIS Bs AB QUANT (test code 0.05 MIU/ML = 2738) MITOCHONDRIAL M2 [id number] 00:00:00 Test Item Value Reference Range Interpretation Comments MITOCHONDRIAL M2 AB (test code = 30.9 UNITS 4634) MITOCHONDRIAL M2 [id number] 00:00:00 Test Item Value Reference Range Interpretation Comments MITOCHONDRIAL M2 AB (test code = 30.9 UNITS 4634) ALKALINE PHOSPHATASE [id number] 00:00:00 Test Item Value Reference Range Interpretation Comments ALKALINE PHOSPHATASE (test code = 196 U/L 93086) ALK PHOS, LIVER 1% (test code = 37.3 % 66306) ALK PHOS, LIVER 1 ABS (test code = 73.1 U/L 30137) ALK PHOS, LIVER 2% (test code = 4.5 % 55124) ALK PHOS, LIVER 2 ABS (test code = 8.8 U/L 39097) ALK PHOS, BONE % (test code = 52116) 44.0 % ALK PHOS, BONE ABS (test code = 86.2 U/L 98748) ALK PHOS, INTESTINE % (test code = 14.2 % 25520) ALK PHOS, INTESTINE ABS (test code = 27.8 U/L 630372) ALK PHOS, PLACENTAL % (test code = 0.0 % 189346) ALK PHOS, PLACENTAL ABS (test code = 0.0 U/L 746822) ALKALINE PHOSPHATASE [id number] 00:00:00 Test Item Value Reference Range Interpretation Comments ALKALINE PHOSPHATASE (test code = 196 U/L 19770) ALK PHOS, LIVER 1% (test code = 37.3 % 09262) ALK PHOS, LIVER 1 ABS (test code = 73.1 U/L 73429) ALK PHOS, LIVER 2% (test code = 4.5 % 54686) ALK PHOS, LIVER 2 ABS (test code = 8.8 U/L 42835) ALK PHOS, BONE % (test code = 59160) 44.0 % ALK PHOS, BONE ABS (test code = 86.2 U/L 56507) ALK PHOS, INTESTINE % (test code = 14.2 % 83284) ALK PHOS, INTESTINE ABS (test code = 27.8 U/L 667352) ALK PHOS, PLACENTAL % (test code = 0.0 % 878614) ALK PHOS, PLACENTAL ABS (test code = 0.0 U/L 849656) ALKALINE PHOSPHATASE [id number] 00:00:00 Test Item Value Reference Range Interpretation Comments ALKALINE PHOSPHATASE (test code = 196 U/L 30879) ALK PHOS, LIVER 1% (test code = 37.3 % 32246) ALK PHOS, LIVER 1 ABS (test code = 73.1 U/L 31552) ALK PHOS, LIVER 2% (test code = 4.5 % 33818) ALK PHOS, LIVER 2 ABS (test code = 8.8 U/L 92136) ALK PHOS, BONE % (test code = 64259) 44.0 % ALK PHOS, BONE ABS (test code = 86.2 U/L 10820) ALK PHOS, INTESTINE % (test code = 14.2 % 00724) ALK PHOS, INTESTINE ABS (test code = 27.8 U/L 245224) ALK PHOS, PLACENTAL % (test code = 0.0 % 203155) ALK PHOS, PLACENTAL ABS (test code = 0.0 U/L 959493) HIV AB/AG COMBO RFLX [id number] 00:00:00 Test Item Value Reference Range Interpretation Comments HIV 1/2 4TH GEN, RFLX CONF (test NON-REACTIVE code = 3514) HIV AB/AG COMBO RFLX [id number] 00:00:00 Test Item Value Reference Range Interpretation Comments HIV 1/2 4TH GEN, RFLX CONF (test NON-REACTIVE code = 3514) HEP B CORE TOTAL [id number] 00:00:00 Test Item Value Reference Range Interpretation Comments HEP B CORE TOTAL AB (test code = NON-REACTIVE 2729) HEP B CORE TOTAL [id number] 00:00:00 Test Item Value Reference Range Interpretation Comments HEP B CORE TOTAL AB (test code = NON-REACTIVE 2729) SCR MAMM BILATERAL CAD [id number] 15:50:34 - SCR MAMM BILATERAL CAD DIGITALBILATERAL DIGITAL SCREENING MAMMOGRAM 3D/2D WITH CAD: 12/20/2018CLINICAL: Asymptomatic. Digital breast tomosynthesis was performed in addition to routine CC and MLO views. Current mammographic images were evaluated by either a [employer] M-Vu or a [employer] ImageChecker CAD (computer aided detection system). Comparison [...] hide abnormalities. In compliance with [place] law ([employer] Law), your patient has been sent a [...] dense breast tissue.Umang Valdez M.D. rb/:12/31/2018 15:50:34 Development Representative: Larissa Sanon MM, [facility] Mammographyletter sent: BIRADS 1-2 Normal Mammogram BI-RADS: 1 NegativeHCV RNA, PCR QUANT [REFLEX]2018-12-11 00:00:00 Test Item Value Reference Range Interpretation Comments HCV RNA, PCR QUANT (test code [id number] IU/ML = 4571) HCV VIRAL LOG (test code = 7.013 LOGIU/ML 04064) HCV RNA, PCR QUANT [REFLEX]2018-12-11 00:00:00 Test Item Value Reference Range Interpretation Comments HCV RNA, PCR QUANT (test code 55768250 IU/ML = 4571) HCV VIRAL LOG (test code = 7.013 LOGIU/ML 53602) HCV RNA, PCR QUANT [REFLEX]2018-12-11 00:00:00 Test Item Value Reference Range Interpretation Comments HCV RNA, PCR QUANT (test code 98737124 IU/ML = 4571) HCV VIRAL LOG (test code = 7.013 LOGIU/ML 09231) HCV RNA, PCR QUANT [REFLEX]2018-12-11 00:00:00 Test Item Value Reference Range Interpretation Comments HCV RNA, PCR QUANT (test code 47751967 IU/ML = 4571) HCV VIRAL LOG (test code = 7.013 LOGIU/ML 53609) HCV RNA, PCR QUANT [REFLEX]2018-12-11 00:00:00 Test Item Value Reference Range Interpretation Comments HCV RNA, PCR QUANT (test code 66800216 IU/ML = 4571) HCV VIRAL LOG (test code = 7.013 LOGIU/ML 15766) HCV RNA, PCR QUANT [REFLEX]2018-12-11 00:00:00 Test Item Value Reference Range Interpretation Comments HCV RNA, PCR QUANT (test code 34989172 IU/ML = 4571) HCV VIRAL LOG (test code = 7.013 LOGIU/ML 17708) HCV RNA, PCR QUANT [REFLEX]2018-12-11 00:00:00 Test Item Value Reference Range Interpretation Comments HCV RNA, PCR QUANT (test code 62076659 IU/ML = 4571) HCV VIRAL LOG (test code = 7.013 LOGIU/ML 73793) HCV RNA, PCR QUANT [REFLEX]2018-12-11 00:00:00 Test Item Value Reference Range Interpretation Comments HCV RNA, PCR QUANT (test code 87008203 IU/ML = 4571) HCV VIRAL LOG (test code = 7.013 LOGIU/ML 05993) HCV RNA, PCR QUANT [REFLEX]2018-12-11 00:00:00 Test Item Value Reference Range Interpretation Comments HCV RNA, PCR QUANT (test code [id number] IU/ML = 4571) HCV VIRAL LOG (test code = 7.013 LOGIU/ML 21686) HCV RNA, PCR QUANT [REFLEX]2018-12-11 00:00:00 Test Item Value Reference Range Interpretation Comments HCV RNA, PCR QUANT (test code 36036917 IU/ML = 4571) HCV VIRAL LOG (test code = 7.013 LOGIU/ML 88012) HCV RNA, PCR QUANT [REFLEX]2018-12-11 00:00:00 Test Item Value Reference Range Interpretation Comments HCV RNA, PCR QUANT (test code [id number] IU/ML = 4571) HCV VIRAL LOG (test code = 7.013 LOGIU/ML 18639) HCV RNA, PCR QUANT [REFLEX]2018-12-11 00:00:00 Test Item Value Reference Range Interpretation Comments HCV RNA, PCR QUANT (test code 33533972 IU/ML = 4571) HCV VIRAL LOG (test code = 7.013 LOGIU/ML 53348) HCV RNA, PCR QUANT [REFLEX]2018-12-11 00:00:00 Test Item Value Reference Range Interpretation Comments HCV RNA, PCR QUANT (test code 06103402 IU/ML = 4571) HCV VIRAL LOG (test code = 7.013 LOGIU/ML 64804) HCV RNA, PCR QUANT [REFLEX]2018-12-11 00:00:00 Test Item Value Reference Range Interpretation Comments HCV RNA, PCR QUANT (test code 32268475 IU/ML = 4571) HCV VIRAL LOG (test code = 7.013 LOGIU/ML 64901) HCV RNA, PCR QUANT [REFLEX]2018-12-11 00:00:00 Test Item Value Reference Range Interpretation Comments HCV RNA, PCR QUANT (test code 24119819 IU/ML = 4571) HCV VIRAL LOG (test code = 7.013 LOGIU/ML 68262) HCV RNA, PCR QUANT [REFLEX]2018-12-11 00:00:00 Test Item Value Reference Range Interpretation Comments HCV RNA, PCR QUANT (test code [id number] IU/ML = 4571) HCV VIRAL LOG (test code = 7.013 LOGIU/ML 42216) HCV RNA, PCR QUANT [REFLEX]2018-12-11 00:00:00 Test Item Value Reference Range Interpretation Comments HCV RNA, PCR QUANT (test code [id number] IU/ML = 4571) HCV VIRAL LOG (test code = 7.013 LOGIU/ML 21280) HEPATITIS C REFLEX [id number] 00:00:00 Test Item Value Reference Range Interpretation Comments HEPATITIS C ANTIBODY (test code = REACTIVE 4675) HCV INDEX (test code = 55582) 14.84 HEPATITIS C REFLEX [id number] 00:00:00 Test Item Value Reference Range Interpretation Comments HEPATITIS C ANTIBODY (test code = REACTIVE 4675) HCV INDEX (test code = 42851) 14.84 HEPATITIS C REFLEX [id number] 00:00:00 Test Item Value Reference Range Interpretation Comments HEPATITIS C ANTIBODY (test code = REACTIVE 4675) HCV INDEX (test code = 56710) 14.84 HEPATITIS C REFLEX [id number] 00:00:00 Test Item Value Reference Range Interpretation Comments HEPATITIS C ANTIBODY (test code = REACTIVE 4675) HCV INDEX (test code = 40574) 14.84 HEPATITIS C REFLEX [id number] 00:00:00 Test Item Value Reference Range Interpretation Comments HEPATITIS C ANTIBODY (test code = REACTIVE 4675) HCV INDEX (test code = 64757) 14.84 HEPATITIS C REFLEX [id number] 00:00:00 Test Item Value Reference Range Interpretation Comments HEPATITIS C ANTIBODY (test code = REACTIVE 4675) HCV INDEX (test code = 81470) 14.84 HEPATITIS C REFLEX [id number] 00:00:00 Test Item Value Reference Range Interpretation Comments HEPATITIS C ANTIBODY (test code = REACTIVE 4675) HCV INDEX (test code = 21385) 14.84 HEPATITIS C REFLEX [id number] 00:00:00 Test Item Value Reference Range Interpretation Comments HEPATITIS C ANTIBODY (test code = REACTIVE 4675) HCV INDEX (test code = 08134) 14.84 HEPATITIS C REFLEX [id number] 00:00:00 Test Item Value Reference Range Interpretation Comments HEPATITIS C ANTIBODY (test code = REACTIVE 4675) HCV INDEX (test code = 09432) 14.84 HEPATITIS C REFLEX [id number] 00:00:00 Test Item Value Reference Range Interpretation Comments HEPATITIS C ANTIBODY (test code = REACTIVE 4675) HCV INDEX (test code = 83042) 14.84 HEPATITIS C REFLEX [id number] 00:00:00 Test Item Value Reference Range Interpretation Comments HEPATITIS C ANTIBODY (test code = REACTIVE 4675) HCV INDEX (test code = 91548) 14.84 COMPREHENSIVE METABOLIC [id number] 00:00:00 Test Item Value Reference Range Interpretation Comments GLUCOSE (test code = 2217) 109 MG/DL BUN (test code = 2208) 15 MG/DL CREATININE (test code = 2214) 0.69 MG/DL eGFR AMER. (test code 115 ML/MIN/1.73 = 09975) eGFR NON- AMER. (test 99 ML/MIN/1.73 code = 14934) CALC BUN/CREAT (test code = 22 RATIO [...] code = 2219) 17 U/L CBC W/AUTO [id number] 00:00:00 Test Item Value Reference Range Interpretation [...] code = 1015) 145 K/UL CBC W/AUTO [id number] 00:00:00 Test Item Value Reference Range Interpretation [...] COUNT (test code = 1015) 145 K/UL [id number] 00:00:00 Test Item Value Reference Range Interpretation Comments TSH, THIRD GENERATION (test code 2.110 UIU/ML = 2821) [id number] 00:00:00 Test Item Value Reference Range Interpretation Comments TSH, THIRD GENERATION (test code 2.110 UIU/ML = 2821) [id number] 00:00:00 Test Item Value Reference Range Interpretation Comments GGT (test code = 2216) 25 U/L ACUTE HEPATITIS [id number] 00:00:00 Test Item Value Reference Range Interpretation Comments HEPATITIS A IgM (test code = NON-REACTIVE 17805) HEPATITIS B CORE IgM (test code NON-REACTIVE = 4644) HEPATITIS B SURF AG (test code = NON-REACTIVE 2739) HEPATITIS C ANTIBODY (test code REACTIVE = 4675) HCV INDEX (test code = 80178) 13.68 INTERPRETATION HEPATITIS A: (NOTE) (test code = 2552) INTERPRETATION HEPATITIS B: (NOTE) (test code = 89788) INTERPRETATION HEPATITIS C: (NOTE) (test code = 59261) ACUTE HEPATITIS [id number] 00:00:00 Test Item Value Reference Range Interpretation Comments HEPATITIS A IgM (test code = NON-REACTIVE 96097) HEPATITIS B CORE IgM (test code NON-REACTIVE = 4644) HEPATITIS B SURF AG (test code = NON-REACTIVE 2739) HEPATITIS C ANTIBODY (test code REACTIVE = 4675) HCV INDEX (test code = 96973) 13.68 INTERPRETATION HEPATITIS A: (NOTE) (test code = 2552) INTERPRETATION HEPATITIS B: (NOTE) (test code = 20637) INTERPRETATION HEPATITIS C: (NOTE) (test code = 74077) COMPREHENSIVE METABOLIC [id number] 00:00:00 Test Item Value Reference Range Interpretation Comments GLUCOSE (test code = 2217) 109 MG/DL BUN (test code = 2208) 15 MG/DL CREATININE (test code = 2214) 0.69 MG/DL eGFR AMER. (test code 115 ML/MIN/1.73 = 44959) eGFR NON- AMER. (test 99 ML/MIN/1.73 code = 58399) CALC BUN/CREAT (test code = 22 RATIO [...] code = 2219) 17 U/L COMPREHENSIVE METABOLIC [id number] 00:00:00 Test Item Value Reference Range Interpretation Comments GLUCOSE (test code = 2217) 109 MG/DL BUN (test code = 2208) 15 MG/DL CREATININE (test code = 2214) 0.69 MG/DL eGFR AMER. (test code 115 ML/MIN/1.73 = 23531) eGFR NON- AMER. (test 99 ML/MIN/1.73 code = 27661) CALC BUN/CREAT (test code = 22 RATIO [...] code = 2219) 17 U/L CBC W/AUTO [id number] 00:00:00 Test Item Value Reference Range Interpretation [...] code = 1015) 145 K/UL CBC W/AUTO [id number] 00:00:00 Test Item Value Reference Range Interpretation [...] code = 1015) 145 K/UL CBC W/AUTO [id number] 00:00:00 Test Item Value Reference Range Interpretation [...] COUNT (test code = 1015) 145 K/UL [id number] 00:00:00 Test Item Value Reference Range Interpretation Comments TSH, THIRD GENERATION (test code 2.110 UIU/ML = 2821) [id number] 00:00:00 Test Item Value Reference Range Interpretation Comments TSH, THIRD GENERATION (test code 2.110 UIU/ML = 2821) [id number] 00:00:00 Test Item Value Reference Range Interpretation Comments TSH, THIRD GENERATION (test code 2.110 UIU/ML = 2821) [id number] 00:00:00 Test Item Value Reference Range Interpretation Comments GGT (test code = 2216) 25 U/L [id number] 00:00:00 Test Item Value Reference Range Interpretation Comments GGT (test code = 2216) 25 U/L ACUTE HEPATITIS [id number] 00:00:00 Test Item Value Reference Range Interpretation Comments HEPATITIS A IgM (test code = NON-REACTIVE 02099) HEPATITIS B CORE IgM (test code NON-REACTIVE = 4644) HEPATITIS B SURF AG (test code = NON-REACTIVE 2739) HEPATITIS C ANTIBODY (test code REACTIVE = 4675) HCV INDEX (test code = 59542) 13.68 INTERPRETATION HEPATITIS A: (NOTE) (test code = 2552) INTERPRETATION HEPATITIS B: (NOTE) (test code = 10592) INTERPRETATION HEPATITIS C: (NOTE) (test code = 49211) ACUTE HEPATITIS [id number] 00:00:00 Test Item Value Reference Range Interpretation Comments HEPATITIS A IgM (test code = NON-REACTIVE 36888) HEPATITIS B CORE IgM (test code NON-REACTIVE = 4644) HEPATITIS B SURF AG (test code = NON-REACTIVE 2739) HEPATITIS C ANTIBODY (test code REACTIVE = 4675) HCV INDEX (test code = 87355) 13.68 INTERPRETATION HEPATITIS A: (NOTE) (test code = 2552) INTERPRETATION HEPATITIS B: (NOTE) (test code = 70994) INTERPRETATION HEPATITIS C: (NOTE) (test code = 24748) COMPREHENSIVE METABOLIC [id number] 00:00:00 Test Item Value Reference Range Interpretation Comments GLUCOSE (test code = 2217) 109 MG/DL BUN (test code = 2208) 15 MG/DL CREATININE (test code = 2214) 0.69 MG/DL eGFR AMER. (test code 115 ML/MIN/1.73 = 07128) eGFR NON- AMER. (test 99 ML/MIN/1.73 code = 90433) CALC BUN/CREAT (test code = 22 RATIO [...] code = 2219) 17 U/L COMPREHENSIVE METABOLIC [id number] 00:00:00 Test Item Value Reference Range Interpretation Comments GLUCOSE (test code = 2217) 109 MG/DL BUN (test code = 2208) 15 MG/DL CREATININE (test code = 2214) 0.69 MG/DL eGFR AMER. (test code 115 ML/MIN/1.73 = 01005) eGFR NON- AMER. (test 99 ML/MIN/1.73 code = 26147) CALC BUN/CREAT (test code = 22 RATIO [...] code = 2219) 17 U/L CBC W/AUTO [id number] 00:00:00 Test Item Value Reference Range Interpretation [...] code = 1015) 145 K/UL CBC W/AUTO [id number] 00:00:00 Test Item Value Reference Range Interpretation [...] code = 1015) 145 K/UL CBC W/AUTO [id number] 00:00:00 Test Item Value Reference Range Interpretation [...] COUNT (test code = 1015) 145 K/UL [id number] 00:00:00 Test Item Value Reference Range Interpretation Comments TSH, THIRD GENERATION (test code 2.110 UIU/ML = 2821) [id number] 00:00:00 Test Item Value Reference Range Interpretation Comments TSH, THIRD GENERATION (test code 2.110 UIU/ML = 2821) [id number] 00:00:00 Test Item Value Reference Range Interpretation Comments TSH, THIRD GENERATION (test code 2.110 UIU/ML = 2821) [id number] 00:00:00 Test Item Value Reference Range Interpretation Comments GGT (test code = 2216) 25 U/L [id number] 00:00:00 Test Item Value Reference Range Interpretation Comments GGT (test code = 2216) 25 U/L ACUTE HEPATITIS [id number] 00:00:00 Test Item Value Reference Range Interpretation Comments HEPATITIS A IgM (test code = NON-REACTIVE 02138) HEPATITIS B CORE IgM (test code NON-REACTIVE = 4644) HEPATITIS B SURF AG (test code = NON-REACTIVE 9) HEPATITIS C ANTIBODY (test code REACTIVE = 4675) HCV INDEX (test code = 98342) 13.68 INTERPRETATION HEPATITIS A: (NOTE) (test code = 2552) INTERPRETATION HEPATITIS B: (NOTE) (test code = 15777) INTERPRETATION HEPATITIS C: (NOTE) (test code = 22089) ACUTE HEPATITIS [id number] 00:00:00 Test Item Value Reference Range Interpretation Comments HEPATITIS A IgM (test code = NON-REACTIVE 55328) HEPATITIS B CORE IgM (test code NON-REACTIVE = 4644) HEPATITIS B SURF AG (test code = NON-REACTIVE 2739) HEPATITIS C ANTIBODY (test code REACTIVE = 4675) HCV INDEX (test code = 47906) 13.68 INTERPRETATION HEPATITIS A: (NOTE) (test code = 2552) INTERPRETATION HEPATITIS B: (NOTE) (test code = 20988) INTERPRETATION HEPATITIS C: (NOTE) (test code = 76334) COMPREHENSIVE METABOLIC [id number] 00:00:00 Test Item Value Reference Range Interpretation Comments GLUCOSE (test code = 2217) 109 MG/DL BUN (test code = 2208) 15 MG/DL CREATININE (test code = 2214) 0.69 MG/DL eGFR AMER. (test code 115 ML/MIN/1.73 = 59167) eGFR NON- AMER. (test 99 ML/MIN/1.73 code = 57680) CALC BUN/CREAT (test code = 22 RATIO [...] RATIO 4) BILIRUBIN, TOTAL (test code = 0.6 MG/DL 2206) ALKALINE PHOSPHATASE (test 209 U/L code = 2204) AST (test code = 2218) 16 U/L ALT (test code = 2219) 17 U/L COMPREHENSIVE METABOLIC [id number] 00:00:00 Test Item Value Reference Range Interpretation Comments GLUCOSE (test code = 2217) 109 MG/DL BUN (test code = 2208) 15 MG/DL CREATININE (test code = 2214) 0.69 MG/DL eGFR AMER. (test code 115 ML/MIN/1.73 = 94129) eGFR NON- AMER. (test 99 ML/MIN/1.73 code = 69574) CALC BUN/CREAT (test code = 22 RATIO [...] code = 2219) 17 U/L CBC W/AUTO [id number] 00:00:00 Test Item Value Reference Range Interpretation [...] code = 1015) 145 K/UL CBC W/AUTO [id number] 00:00:00 Test Item Value Reference Range Interpretation [...] code = 1015) 145 K/UL CBC W/AUTO [id number] 00:00:00 Test Item Value Reference Range Interpretation [...] COUNT (test code = 1015) 145 K/UL [id number] 00:00:00 Test Item Value Reference Range Interpretation Comments TSH, THIRD GENERATION (test code 2.110 UIU/ML = 2821) [id number] 00:00:00 Test Item Value Reference Range Interpretation Comments TSH, THIRD GENERATION (test code 2.110 UIU/ML = 2821) [id number] 00:00:00 Test Item Value Reference Range Interpretation Comments TSH, THIRD GENERATION (test code 2.110 UIU/ML = 2821) [id number] 00:00:00 Test Item Value Reference Range Interpretation Comments GGT (test code = 2216) 25 U/L [id number] 00:00:00 Test Item Value Reference Range Interpretation Comments GGT (test code = 2216) 25 U/L ACUTE HEPATITIS [id number] 00:00:00 Test Item Value Reference Range Interpretation Comments HEPATITIS A IgM (test code = NON-REACTIVE 89420) HEPATITIS B CORE IgM (test code NON-REACTIVE = 3244) HEPATITIS B SURF AG (test code = NON-REACTIVE 2889) HEPATITIS C ANTIBODY (test code REACTIVE = 4675) HCV INDEX (test code = 13362) 13.68 INTERPRETATION HEPATITIS A: (NOTE) (test code = 2552) INTERPRETATION HEPATITIS B: (NOTE) (test code = 09068) INTERPRETATION HEPATITIS C: (NOTE) (test code = 19714) ACUTE HEPATITIS [id number] 00:00:00 Test Item Value Reference Range Interpretation Comments HEPATITIS A IgM (test code = NON-REACTIVE 63630) HEPATITIS B CORE IgM (test code NON-REACTIVE = 4644) HEPATITIS B SURF AG (test code = NON-REACTIVE 2739) HEPATITIS C ANTIBODY (test code REACTIVE = 4675) HCV INDEX (test code = 62598) 13.68 INTERPRETATION HEPATITIS A: (NOTE) (test code = 2552) INTERPRETATION HEPATITIS B: (NOTE) (test code = 87667) INTERPRETATION HEPATITIS C: (NOTE) (test code = 13859) COMPREHENSIVE METABOLIC [id number] 00:00:00 Test Item Value Reference Range Interpretation Comments GLUCOSE (test code = 2217) 109 MG/DL BUN (test code = 2208) 15 MG/DL CREATININE (test code = 2214) 0.69 MG/DL eGFR AMER. (test code 115 ML/MIN/1.73 = 86658) eGFR NON- AMER. (test 99 ML/MIN/1.73 code = 73463) CALC BUN/CREAT (test code = 22 RATIO [...] code = 2219) 17 U/L COMPREHENSIVE METABOLIC [id number] 00:00:00 Test Item Value Reference Range Interpretation Comments GLUCOSE (test code = 2217) 109 MG/DL BUN (test code = 2208) 15 MG/DL CREATININE (test code = 2214) 0.69 MG/DL eGFR AMER. (test code 115 ML/MIN/1.73 = 11461) eGFR NON- AMER. (test 99 ML/MIN/1.73 code = 18462) CALC BUN/CREAT (test code = 22 RATIO [...] code = 2219) 17 U/L CBC W/AUTO [id number] 00:00:00 Test Item Value Reference Range Interpretation [...] code = 1015) 145 K/UL CBC W/AUTO [id number] 00:00:00 Test Item Value Reference Range Interpretation [...] code = 1015) 145 K/UL CBC W/AUTO [id number] 00:00:00 Test Item Value Reference Range Interpretation [...] COUNT (test code = 1015) 145 K/UL [id number] 00:00:00 Test Item Value Reference Range Interpretation Comments TSH, THIRD GENERATION (test code 2.110 UIU/ML = 2821) [id number] 00:00:00 Test Item Value Reference Range Interpretation Comments TSH, THIRD GENERATION (test code 2.110 UIU/ML = 2821) [id number] 00:00:00 Test Item Value Reference Range Interpretation Comments TSH, THIRD GENERATION (test code 2.110 UIU/ML = 2821) [id number] 00:00:00 Test Item Value Reference Range Interpretation Comments GGT (test code = 2216) 25 U/L [id number] 00:00:00 Test Item Value Reference Range Interpretation Comments GGT (test code = 2216) 25 U/L ACUTE HEPATITIS [id number] 00:00:00 Test Item Value Reference Range Interpretation Comments HEPATITIS A IgM (test code = NON-REACTIVE 14341) HEPATITIS B CORE IgM (test code NON-REACTIVE = 4644) HEPATITIS B SURF AG (test code = NON-REACTIVE 2739) HEPATITIS C ANTIBODY (test code REACTIVE = 4675) HCV INDEX (test code = 26846) 13.68 INTERPRETATION HEPATITIS A: (NOTE) (test code = 2552) INTERPRETATION HEPATITIS B: (NOTE) (test code = 93615) INTERPRETATION HEPATITIS C: (NOTE) (test code = 13110) ACUTE HEPATITIS [id number] 00:00:00 Test Item Value Reference Range Interpretation Comments HEPATITIS A IgM (test code = NON-REACTIVE 64679) HEPATITIS B CORE IgM (test code NON-REACTIVE = 4644) HEPATITIS B SURF AG (test code = NON-REACTIVE 2739) HEPATITIS C ANTIBODY (test code REACTIVE = 4675) HCV INDEX (test code = 15083) 13.68 INTERPRETATION HEPATITIS A: (NOTE) (test code = 2552) INTERPRETATION HEPATITIS B: (NOTE) (test code = 49844) INTERPRETATION HEPATITIS C: (NOTE) (test code = 83986) COMPREHENSIVE METABOLIC [id number] 00:00:00 Test Item Value Reference Range Interpretation Comments GLUCOSE (test code = 2217) 109 MG/DL BUN (test code = 2208) 15 MG/DL CREATININE (test code = 2214) 0.69 MG/DL eGFR AMER. (test code 115 ML/MIN/1.73 = 46274) eGFR NON- AMER. (test 99 ML/MIN/1.73 code = 02545) CALC BUN/CREAT (test code = 22 RATIO [...] code = 2219) 17 U/L COMPREHENSIVE METABOLIC [id number] 00:00:00 Test Item Value Reference Range Interpretation Comments GLUCOSE (test code = 2217) 109 MG/DL BUN (test code = 2208) 15 MG/DL CREATININE (test code = 2214) 0.69 MG/DL eGFR AMER. (test code 115 ML/MIN/1.73 = 92938) eGFR NON- AMER. (test 99 ML/MIN/1.73 code = 24066) CALC BUN/CREAT (test code = 22 RATIO [...] code = 2219) 17 U/L CBC W/AUTO [id number] 00:00:00 Test Item Value Reference Range Interpretation [...] code = 1015) 145 K/UL CBC W/AUTO [id number] 00:00:00 Test Item Value Reference Range Interpretation [...] code = 1015) 145 K/UL CBC W/AUTO [id number] 00:00:00 Test Item Value Reference Range Interpretation [...] COUNT (test code = 1015) 145 K/UL [id number] 00:00:00 Test Item Value Reference Range Interpretation Comments TSH, THIRD GENERATION (test code 2.110 UIU/ML = 2821) [id number] 00:00:00 Test Item Value Reference Range Interpretation Comments TSH, THIRD GENERATION (test code 2.110 UIU/ML = 2821) [id number] 00:00:00 Test Item Value Reference Range Interpretation Comments TSH, THIRD GENERATION (test code 2.110 UIU/ML = 2821) [id number] 00:00:00 Test Item Value Reference Range Interpretation Comments GGT (test code = 2216) 25 U/L [id number] 00:00:00 Test Item Value Reference Range Interpretation Comments GGT (test code = 2216) 25 U/L ACUTE HEPATITIS [id number] 00:00:00 Test Item Value Reference Range Interpretation Comments HEPATITIS A IgM (test code = NON-REACTIVE 77607) HEPATITIS B CORE IgM (test code NON-REACTIVE = 4644) HEPATITIS B SURF AG (test code = NON-REACTIVE 3499) HEPATITIS C ANTIBODY (test code REACTIVE = 4675) HCV INDEX (test code = 60542) 13.68 INTERPRETATION HEPATITIS A: (NOTE) (test code = 2552) INTERPRETATION HEPATITIS B: (NOTE) (test code = 76753) INTERPRETATION HEPATITIS C: (NOTE) (test code = 59499) LIPID [id number] 00:00:00 Test Item Value Reference Range Interpretation Comments CHOLESTEROL (test code = 2210) 146 MG/DL TRIGLYCERIDES (test code = 2232) 248 MG/DL HDL CHOLESTEROL (test code = 2220) 27 MG/DL CALC LDL CHOL (test code = 2237) 69 MG/DL RISK RATIO LDL/HDL (test code = 2.57 RATIO 2238) COMPREHENSIVE METABOLIC [id number] 00:00:00 Test Item Value Reference Range Interpretation Comments GLUCOSE (test code = 2217) 100 MG/DL BUN (test code = 2208) 11 MG/DL CREATININE (test code = 2214) 0.72 MG/DL eGFR AMER. (test code 111 ML/MIN/1.73 = 07386) eGFR NON- AMER. (test 96 ML/MIN/1.73 code = 43644) CALC BUN/CREAT (test code = 15 RATIO [...] 2239) CALC A/G RATIO (test code = 1.8 RATIO 2234) BILIRUBIN, TOTAL (test code = 0.8 MG/DL 2206) ALKALINE PHOSPHATASE (test 218 U/L code = 2204) AST (test code = 2218) 22 U/L ALT (test code = 2219) 25 U/L HEMOGLOBIN [id number] 00:00:00 Test Item Value Reference Range Interpretation Comments HEMOGLOBIN A1c (test code = 24549) 5.5 % HEMOGLOBIN [id number] 00:00:00 Test Item Value Reference Range Interpretation Comments HEMOGLOBIN A1c (test code = 38294) 5.5 % HEMOGLOBIN [id number] 00:00:00 Test Item Value Reference Range Interpretation Comments HEMOGLOBIN A1c (test code = 90781) 5.5 % LIPID [id number] 00:00:00 Test Item Value Reference Range Interpretation Comments CHOLESTEROL (test code = 2210) 146 MG/DL TRIGLYCERIDES (test code = 2232) 248 MG/DL HDL CHOLESTEROL (test code = 2220) 27 MG/DL CALC LDL CHOL (test code = 2237) 69 MG/DL RISK RATIO LDL/HDL (test code = 2.57 RATIO 2238) LIPID [id number] 00:00:00 Test Item Value Reference Range Interpretation Comments CHOLESTEROL (test code = 2210) 146 MG/DL TRIGLYCERIDES (test code = 2232) 248 MG/DL HDL CHOLESTEROL (test code = 2220) 27 MG/DL CALC LDL CHOL (test code = 2237) 69 MG/DL RISK RATIO LDL/HDL (test code = 2.57 RATIO 2238) COMPREHENSIVE METABOLIC [id number] 00:00:00 Test Item Value Reference Range Interpretation Comments GLUCOSE (test code = 2217) 100 MG/DL BUN (test code = 2208) 11 MG/DL CREATININE (test code = 2214) 0.72 MG/DL eGFR AMER. (test code 111 ML/MIN/1.73 = 71524) eGFR NON- AMER. (test 96 ML/MIN/1.73 code = 72638) CALC BUN/CREAT (test code = 15 RATIO [...] code = 2219) 25 U/L COMPREHENSIVE METABOLIC [id number] 00:00:00 Test Item Value Reference Range Interpretation Comments GLUCOSE (test code = 2217) 100 MG/DL BUN (test code = 2208) 11 MG/DL CREATININE (test code = 2214) 0.72 MG/DL eGFR AMER. (test code 111 ML/MIN/1.73 = 62451) eGFR NON- AMER. (test 96 ML/MIN/1.73 code = 17903) CALC BUN/CREAT (test code = 15 RATIO [...] (test code = 2219) 25 U/L HEMOGLOBIN [id number] 00:00:00 Test Item Value Reference Range Interpretation Comments HEMOGLOBIN A1c (test code = 31951) 5.5 % HEMOGLOBIN [id number] 00:00:00 Test Item Value Reference Range Interpretation Comments HEMOGLOBIN A1c (test code = 16705) 5.5 % HEMOGLOBIN [id number] 00:00:00 Test Item Value Reference Range Interpretation Comments HEMOGLOBIN A1c (test code = 40919) 5.5 % LIPID [id number] 00:00:00 Test Item Value Reference Range Interpretation Comments CHOLESTEROL (test code = 2210) 146 MG/DL TRIGLYCERIDES (test code = 2232) 248 MG/DL HDL CHOLESTEROL (test code = 2220) 27 MG/DL CALC LDL CHOL (test code = 2237) 69 MG/DL RISK RATIO LDL/HDL (test code = 2.57 RATIO 2238) LIPID [id number] 00:00:00 Test Item Value Reference Range Interpretation Comments CHOLESTEROL (test code = 2210) 146 MG/DL TRIGLYCERIDES (test code = 2232) 248 MG/DL HDL CHOLESTEROL (test code = 2220) 27 MG/DL CALC LDL CHOL (test code = 2237) 69 MG/DL RISK RATIO LDL/HDL (test code = 2.57 RATIO 2238) COMPREHENSIVE METABOLIC [id number] 00:00:00 Test Item Value Reference Range Interpretation Comments GLUCOSE (test code = 2217) 100 MG/DL BUN (test code = 2208) 11 MG/DL CREATININE (test code = 2214) 0.72 MG/DL eGFR AMER. (test code 111 ML/MIN/1.73 = 12364) eGFR NON- AMER. (test 96 ML/MIN/1.73 code = 65134) CALC BUN/CREAT (test code = 15 RATIO 2235) SODIUM (test code = 2231) 141 MEQ/L POTASSIUM (test code = 2228) 4.2 MEQ/L CHLORIDE (test code = 2215) 102 MEQ/L CARBON DIOXIDE (test code = 30 MEQ/L 6) CALCIUM (test code = 2209) 10.1 MG/DL PROTEIN, TOTAL (test code = 7.6 G/DL 2228) ALBUMIN (test code = 220) 4.9 G/DL CALC GLOBULIN (test code = 2.7 G/DL 2240) CALC A/G RATIO (test code = 1.8 RATIO 2234) BILIRUBIN, TOTAL (test code = 0.8 MG/DL 220) ALKALINE PHOSPHATASE (test 218 U/L code = 2204) AST (test code = 2218) 22 U/L ALT (test code = 2219) 25 U/L COMPREHENSIVE METABOLIC [id number] 00:00:00 Test Item Value Reference Range Interpretation Comments GLUCOSE (test code = 2217) 100 MG/DL BUN (test code = 2208) 11 MG/DL CREATININE (test code = 2214) 0.72 MG/DL eGFR AMER. (test code 111 ML/MIN/1.73 = 76341) eGFR NON- AMER. (test 96 ML/MIN/1.73 code = 88237) CALC BUN/CREAT (test code = 15 RATIO [...] (test code = 2219) 25 U/L HEMOGLOBIN [id number] 00:00:00 Test Item Value Reference Range Interpretation Comments HEMOGLOBIN A1c (test code = 60464) 5.5 % HEMOGLOBIN [id number] 00:00:00 Test Item Value Reference Range Interpretation Comments HEMOGLOBIN A1c (test code = 36640) 5.5 % HEMOGLOBIN [id number] 00:00:00 Test Item Value Reference Range Interpretation Comments HEMOGLOBIN A1c (test code = 64249) 5.5 % LIPID [id number] 00:00:00 Test Item Value Reference Range Interpretation Comments CHOLESTEROL (test code = 2210) 146 MG/DL TRIGLYCERIDES (test code = 2232) 248 MG/DL HDL CHOLESTEROL (test code = 2220) 27 MG/DL CALC LDL CHOL (test code = 2237) 69 MG/DL RISK RATIO LDL/HDL (test code = 2.57 RATIO 2238) LIPID [id number] 00:00:00 Test Item Value Reference Range Interpretation Comments CHOLESTEROL (test code = 2210) 146 MG/DL TRIGLYCERIDES (test code = 2232) 248 MG/DL HDL CHOLESTEROL (test code = 2220) 27 MG/DL CALC LDL CHOL (test code = 2237) 69 MG/DL RISK RATIO LDL/HDL (test code = 2.57 RATIO 2238) COMPREHENSIVE METABOLIC [id number] 00:00:00 Test Item Value Reference Range Interpretation Comments GLUCOSE (test code = 2217) 100 MG/DL BUN (test code = 2208) 11 MG/DL CREATININE (test code = 2214) 0.72 MG/DL eGFR AMER. (test code 111 ML/MIN/1.73 = 69659) eGFR NON- AMER. (test 96 ML/MIN/1.73 code = 07726) CALC BUN/CREAT (test code = 15 RATIO [...] code = 2219) 25 U/L COMPREHENSIVE METABOLIC [id number] 00:00:00 Test Item Value Reference Range Interpretation Comments GLUCOSE (test code = 2217) 100 MG/DL BUN (test code = 2208) 11 MG/DL CREATININE (test code = 2214) 0.72 MG/DL eGFR AMER. (test code 111 ML/MIN/1.73 = 91997) eGFR NON- AMER. (test 96 ML/MIN/1.73 code = 57423) CALC BUN/CREAT (test code = 15 RATIO [...] 2239) CALC A/G RATIO (test code = 1.8 RATIO 2233) BILIRUBIN, TOTAL (test code = 0.8 MG/DL 2206) ALKALINE PHOSPHATASE (test 218 U/L code = 2204) AST (test code = 2218) 22 U/L ALT (test code = 2219) 25 U/L HEMOGLOBIN [id number] 00:00:00 Test Item Value Reference Range Interpretation Comments HEMOGLOBIN A1c (test code = 37102) 5.5 % HEMOGLOBIN [id number] 00:00:00 Test Item Value Reference Range Interpretation Comments HEMOGLOBIN A1c (test code = 97473) 5.5 % HEMOGLOBIN [id number] 00:00:00 Test Item Value Reference Range Interpretation Comments HEMOGLOBIN A1c (test code = 54280) 5.5 % LIPID [id number] 00:00:00 Test Item Value Reference Range Interpretation Comments CHOLESTEROL (test code = 2210) 146 MG/DL TRIGLYCERIDES (test code = 2232) 248 MG/DL HDL CHOLESTEROL (test code = 2220) 27 MG/DL CALC LDL CHOL (test code = 2237) 69 MG/DL RISK RATIO LDL/HDL (test code = 2.57 RATIO 2238) LIPID [id number] 00:00:00 Test Item Value Reference Range Interpretation Comments CHOLESTEROL (test code = 2210) 146 MG/DL TRIGLYCERIDES (test code = 2232) 248 MG/DL HDL CHOLESTEROL (test code = 2220) 27 MG/DL CALC LDL CHOL (test code = 2237) 69 MG/DL RISK RATIO LDL/HDL (test code = 2.57 RATIO 2238) COMPREHENSIVE METABOLIC [id number] 00:00:00 Test Item Value Reference Range Interpretation Comments GLUCOSE (test code = 2217) 100 MG/DL BUN (test code = 2208) 11 MG/DL CREATININE (test code = 2214) 0.72 MG/DL eGFR AMER. (test code 111 ML/MIN/1.73 = 53508) eGFR NON- AMER. (test 96 ML/MIN/1.73 code = 24636) CALC BUN/CREAT (test code = 15 RATIO [...] code = 2219) 25 U/L COMPREHENSIVE METABOLIC [id number] 00:00:00 Test Item Value Reference Range Interpretation Comments GLUCOSE (test code = 2217) 100 MG/DL BUN (test code = 2208) 11 MG/DL CREATININE (test code = 2214) 0.72 MG/DL eGFR AMER. (test code 111 ML/MIN/1.73 = 68468) eGFR NON- AMER. (test 96 ML/MIN/1.73 code = 39319) CALC BUN/CREAT (test code = 15 RATIO [...] (test code = 2219) 25 U/L HEMOGLOBIN [id number] 00:00:00 Test Item Value Reference Range Interpretation Comments HEMOGLOBIN A1c (test code = 40087) 5.5 % HEMOGLOBIN [id number] 00:00:00 Test Item Value Reference Range Interpretation Comments HEMOGLOBIN A1c (test code = 59893) 5.5 % HEMOGLOBIN [id number] 00:00:00 Test Item Value Reference Range Interpretation Comments HEMOGLOBIN A1c (test code = 10720) 5.5 % LIPID [id number] 00:00:00 Test Item Value Reference Range Interpretation Comments CHOLESTEROL (test code = 2210) 146 MG/DL TRIGLYCERIDES (test code = 2232) 248 MG/DL HDL CHOLESTEROL (test code = 2220) 27 MG/DL CALC LDL CHOL (test code = 2237) 69 MG/DL RISK RATIO LDL/HDL (test code = 2.57 RATIO 2238) LIPID [id number] 00:00:00 Test Item Value Reference Range Interpretation Comments CHOLESTEROL (test code = 2210) 146 MG/DL TRIGLYCERIDES (test code = 2232) 248 MG/DL HDL CHOLESTEROL (test code = 2220) 27 MG/DL CALC LDL CHOL (test code = 2237) 69 MG/DL RISK RATIO LDL/HDL (test code = 2.57 RATIO 2238) COMPREHENSIVE METABOLIC [id number] 00:00:00 Test Item Value Reference Range Interpretation Comments GLUCOSE (test code = 2217) 100 MG/DL BUN (test code = 2208) 11 MG/DL CREATININE (test code = 2214) 0.72 MG/DL eGFR AMER. (test code 111 ML/MIN/1.73 = 13343) eGFR NON- AMER. (test 96 ML/MIN/1.73 code = 72473) CALC BUN/CREAT (test code = 15 RATIO [...] code = 2219) 25 U/L COMPREHENSIVE METABOLIC [id number] 00:00:00 Test Item Value Reference Range Interpretation Comments GLUCOSE (test code = 2217) 100 MG/DL BUN (test code = 2208) 11 MG/DL CREATININE (test code = 2214) 0.72 MG/DL eGFR AMER. (test code 111 ML/MIN/1.73 = 07979) eGFR NON- AMER. (test 96 ML/MIN/1.73 code = 15894) CALC BUN/CREAT (test code = 15 RATIO [...] (test code = 2219) 25 U/L HEMOGLOBIN [id number] 00:00:00 Test Item Value Reference Range Interpretation Comments HEMOGLOBIN A1c (test code = 04092) 5.5 % HEMOGLOBIN [id number] 00:00:00 Test Item Value Reference Range Interpretation Comments HEMOGLOBIN A1c (test code = 37348) 5.5 % PAP TEST, THINPREP, [id number] 00:00:00 Test Item Value Reference Range Interpretation Comments SOURCE: (test code = Cervical/Endocervical 8001) SLIDES: (test code = 1 8011) LMP: (test code = SEE NOTE 8021) SPECIMEN ADEQUACY: (NOTE) (test code = 45432) INTERPRETATION: (test NO EPITHELIAL code = 98856) ABNORMALITY SEE BELOW SOLVENT PROCESS EXTRACTOR OPERATOR: Laure (test code = 8101) Angel[place],CT(ASCP)IAC LOCATION: (test code (NOTE) = 78751) CPT: (test code = (NOTE) 8140) PAP TEST, THINPREP, [id number] 00:00:00 Test Item Value Reference Range Interpretation Comments SOURCE: (test code = Cervical/Endocervical 8001) SLIDES: (test code = 1 8011) LMP: (test code = SEE NOTE 8021) SPECIMEN ADEQUACY: (NOTE) (test code = 88711) INTERPRETATION: (test NO EPITHELIAL code = 35829) ABNORMALITY SEE BELOW SOLVENT PROCESS EXTRACTOR OPERATOR: Laure (test code = 8101) Angel[place],CT(ASCP)IAC LOCATION: (test code (NOTE) = 97099) CPT: (test code = (NOTE) 8140) PAP TEST, THINPREP, [id number] 00:00:00 Test Item Value Reference Range Interpretation Comments SOURCE: (test code = Cervical/Endocervical 8001) SLIDES: (test code = 1 8011) LMP: (test code = SEE NOTE 8021) SPECIMEN ADEQUACY: (NOTE) (test code = 42825) INTERPRETATION: (test NO EPITHELIAL code = 94844) ABNORMALITY SEE BELOW SOLVENT PROCESS EXTRACTOR OPERATOR: Laure (test code = 8101) [place],CT(ASCP)IAC LOCATION: (test code (NOTE) = 76799) CPT: (test code = (NOTE) 8140) PAP TEST, THINPREP, [id number] 00:00:00 Test Item Value Reference Range Interpretation Comments SOURCE: (test code = Cervical/Endocervical 8001) SLIDES: (test code = 1 8011) LMP: (test code = SEE NOTE 8021) SPECIMEN ADEQUACY: (NOTE) (test code = 87737) INTERPRETATION: (test NO EPITHELIAL code = 09241) ABNORMALITY SEE BELOW SOLVENT PROCESS EXTRACTOR OPERATOR: Laure (test code = 8101) Angelito,CT(ASCP)IAC LOCATION: (test code (NOTE) = 52404) CPT: (test code = (NOTE) 8140) PAP TEST, THINPREP, [id number] 00:00:00 Test Item Value Reference Range Interpretation Comments SOURCE: (test code = Cervical/Endocervical 8001) SLIDES: (test code = 1 8011) LMP: (test code = SEE NOTE 8021) SPECIMEN ADEQUACY: (NOTE) (test code = 04031) INTERPRETATION: (test NO EPITHELIAL code = 95944) ABNORMALITY SEE BELOW SOLVENT PROCESS EXTRACTOR OPERATOR: Laure (test code = 8101) Angel[place],CT(ASCP)IAC LOCATION: (test code (NOTE) = 30228) CPT: (test code = (NOTE) 8140) PAP TEST, THINPREP, [id number] 00:00:00 Test Item Value Reference Range Interpretation Comments SOURCE: (test code = Cervical/Endocervical 8001) SLIDES: (test code = 1 8011) LMP: (test code = SEE NOTE 8021) SPECIMEN ADEQUACY: (NOTE) (test code = 94045) INTERPRETATION: (test NO EPITHELIAL code = 87682) ABNORMALITY SEE BELOW SOLVENT PROCESS EXTRACTOR OPERATOR: Laure (test code = 8101) [place],CT(ASCP)IAC LOCATION: (test code (NOTE) = 31101) CPT: (test code = (NOTE) 8140) PAP TEST, THINPREP, [id number] 00:00:00 Test Item Value Reference Range Interpretation Comments SOURCE: (test code = Cervical/Endocervical 8001) SLIDES: (test code = 1 8011) LMP: (test code = SEE NOTE 8021) SPECIMEN ADEQUACY: (NOTE) (test code = 56107) INTERPRETATION: (test NO EPITHELIAL code = 76948) ABNORMALITY SEE BELOW SOLVENT PROCESS EXTRACTOR OPERATOR: Laure (test code = 8101) Angelito,CT(ASCP)IAC LOCATION: (test code (NOTE) = 39928) CPT: (test code = (NOTE) 8140) PAP TEST, THINPREP, [id number] 00:00:00 Test Item Value Reference Range Interpretation Comments SOURCE: (test code = Cervical/Endocervical 8001) SLIDES: (test code = 1 8011) LMP: (test code = SEE NOTE 8021) SPECIMEN ADEQUACY: (NOTE) (test code = 05648) INTERPRETATION: (test NO EPITHELIAL code = 94601) ABNORMALITY SEE BELOW SOLVENT PROCESS EXTRACTOR OPERATOR: Laure (test code = 8101) CHANEL Eaton(ASCP)IAC LOCATION: (test code (NOTE) = 46969) CPT: (test code = (NOTE) 8140) PAP TEST, THINPREP, [id number] 00:00:00 Test Item Value Reference Range Interpretation Comments SOURCE: (test code = Cervical/Endocervical 8001) SLIDES: (test code = 1 8011) LMP: (test code = SEE NOTE 8021) SPECIMEN ADEQUACY: (NOTE) (test code = 85880) INTERPRETATION: (test NO EPITHELIAL code = 11446) ABNORMALITY SEE BELOW SOLVENT PROCESS EXTRACTOR OPERATOR: Laure (test code = 8101) CHANEL Eaton(ASCP)IAC LOCATION: (test code (NOTE) = 66680) CPT: (test code = (NOTE) 8140) PAP TEST, THINPREP, [id number] 00:00:00 Test Item Value Reference Range Interpretation Comments SOURCE: (test code = Cervical/Endocervical 8001) SLIDES: (test code = 1 8011) LMP: (test code = SEE NOTE 8021) SPECIMEN ADEQUACY: (NOTE) (test code = 59203) INTERPRETATION: (test NO EPITHELIAL code = 37025) ABNORMALITY SEE BELOW SOLVENT PROCESS EXTRACTOR OPERATOR: Laure (test code = 8101) CHANEL Eaton(ASCP)IAC LOCATION: (test code (NOTE) = 51356) CPT: (test code = (NOTE) 8140) PAP TEST, THINPREP, [id number] 00:00:00 Test Item Value Reference Range Interpretation Comments SOURCE: (test code = Cervical/Endocervical 8001) SLIDES: (test code = 1 8011) LMP: (test code = SEE NOTE 8021) SPECIMEN ADEQUACY: (NOTE) (test code = 57214) INTERPRETATION: (test NO EPITHELIAL code = 23068) ABNORMALITY SEE BELOW SOLVENT PROCESS EXTRACTOR OPERATOR: Laure (test code = 8101) [place],CT(ASCP)IAC LOCATION: (test code (NOTE) = 23125) CPT: (test code = (NOTE) 8140) HPV HIGH RISK WITH GENOTYPE, [id number] 00:00:00 Test Item Value Reference Range Interpretation Comments HPV HIGH RISK INTERP (test code = NEGATIVE 39310) HPV 16 (test code = 62476) NEGATIVE HPV 18 (test code = 45695) NEGATIVE HPV, HR, OTHER GENOTYPES (test code NEGATIVE = 46805) HPV HIGH RISK WITH GENOTYPE, [id number] 00:00:00 Test Item Value Reference Range Interpretation Comments HPV HIGH RISK INTERP (test code = NEGATIVE 79479) HPV 16 (test code = 85732) NEGATIVE HPV 18 (test code = 71540) NEGATIVE HPV, HR, OTHER GENOTYPES (test code NEGATIVE = 08946) HPV HIGH RISK WITH GENOTYPE, [id number] 00:00:00 Test Item Value Reference Range Interpretation Comments HPV HIGH RISK INTERP (test code = NEGATIVE 60162) HPV 16 (test code = 17101) NEGATIVE HPV 18 (test code = 05347) NEGATIVE HPV, HR, OTHER GENOTYPES (test code NEGATIVE = 99381) HPV HIGH RISK WITH GENOTYPE, [id number] 00:00:00 Test Item Value Reference Range Interpretation Comments HPV HIGH RISK INTERP (test code = NEGATIVE 12527) HPV 16 (test code = 47130) NEGATIVE HPV 18 (test code = 27479) NEGATIVE HPV, HR, OTHER GENOTYPES (test code NEGATIVE = 37126) HPV HIGH RISK WITH GENOTYPE, [id number] 00:00:00 Test Item Value Reference Range Interpretation Comments HPV HIGH RISK INTERP (test code = NEGATIVE 52114) HPV 16 (test code = 30204) NEGATIVE HPV 18 (test code = 72282) NEGATIVE HPV, HR, OTHER GENOTYPES (test code NEGATIVE = 90616) HPV HIGH RISK WITH GENOTYPE, [id number] 00:00:00 Test Item Value Reference Range Interpretation Comments HPV HIGH RISK INTERP (test code = NEGATIVE 07716) HPV 16 (test code = 44696) NEGATIVE HPV 18 (test code = 29175) NEGATIVE HPV, HR, OTHER GENOTYPES (test code NEGATIVE = 23599) HPV HIGH RISK WITH GENOTYPE, [id number] 00:00:00 Test Item Value Reference Range Interpretation Comments HPV HIGH RISK INTERP (test code = NEGATIVE 33091) HPV 16 (test code = 54931) NEGATIVE HPV 18 (test code = 87097) NEGATIVE HPV, HR, OTHER GENOTYPES (test code NEGATIVE = 94946) HPV HIGH RISK WITH GENOTYPE, [id number] 00:00:00 Test Item Value Reference Range Interpretation Comments HPV HIGH RISK INTERP (test code = NEGATIVE 32705) HPV 16 (test code = 16813) NEGATIVE HPV 18 (test code = 63955) NEGATIVE HPV, HR, OTHER GENOTYPES (test code NEGATIVE = 97235) HPV HIGH RISK WITH GENOTYPE, [id number] 00:00:00 Test Item Value Reference Range Interpretation Comments HPV HIGH RISK INTERP (test code = NEGATIVE 64749) HPV 16 (test code = 95730) NEGATIVE HPV 18 (test code = 09971) NEGATIVE HPV, HR, OTHER GENOTYPES (test code NEGATIVE = 27944) HPV HIGH RISK WITH GENOTYPE, [id number] 00:00:00 Test Item Value Reference Range Interpretation Comments HPV HIGH RISK INTERP (test code = NEGATIVE 90612) HPV 16 (test code = 26240) NEGATIVE HPV 18 (test code = 59351) NEGATIVE HPV, HR, OTHER GENOTYPES (test code NEGATIVE = 08359) HPV HIGH RISK WITH GENOTYPE, [id number] 00:00:00 Test Item Value Reference Range Interpretation Comments HPV HIGH RISK INTERP (test code = NEGATIVE 83919) HPV 16 (test code = 84243) NEGATIVE HPV 18 (test code = 88730) NEGATIVE HPV, HR, OTHER GENOTYPES (test code NEGATIVE = 33860) CBC W/AUTO [id number] 00:00:00 Test Item Value Reference Range Interpretation [...] code = 1015) 164 K/UL CBC W/AUTO [id number] 00:00:00 Test Item Value Reference Range Interpretation [...] code = 1015) 164 K/UL COMPREHENSIVE METABOLIC [id number] 00:00:00 Test Item Value Reference Range Interpretation Comments GLUCOSE (test code = 2217) 95 MG/DL BUN (test code = 2208) 19 MG/DL CREATININE (test code = 2214) 0.62 MG/DL eGFR AMER. (test code 121 ML/MIN/1.73 = 76195) eGFR NON- AMER. (test 104 ML/MIN/1.73 code = 10970) CALC BUN/CREAT (test code = 31 RATIO [...] RATIO 2233) BILIRUBIN, TOTAL (test code = 0.5 MG/DL 2206) ALKALINE PHOSPHATASE (test 153 U/L code = 2204) AST (test code = 2218) 19 U/L ALT (test code = 2219) 20 U/L LIPID [id number] 00:00:00 Test Item Value Reference Range Interpretation [...] (test code = 2821) 1.0 UIU/ML HEMOGLOBIN [id number] 00:00:00 Test Item Value Reference Range Interpretation Comments HEMOGLOBIN A1c (test code = 82727) 5.6 % HEMOGLOBIN [id number] 00:00:00 Test Item Value Reference Range Interpretation Comments HEMOGLOBIN A1c (test code = 59899) 5.6 % HEMOGLOBIN [id number] 00:00:00 Test Item Value Reference Range Interpretation Comments HEMOGLOBIN A1c (test code = 61577) 5.6 % CBC W/AUTO [id number] 00:00:00 Test Item Value Reference Range Interpretation [...] code = 1015) 164 K/UL CBC W/AUTO [id number] 00:00:00 Test Item Value Reference Range Interpretation [...] code = 1015) 164 K/UL CBC W/AUTO [id number] 00:00:00 Test Item Value Reference Range Interpretation [...] code = 1015) 164 K/UL COMPREHENSIVE METABOLIC [id number] 00:00:00 Test Item Value Reference Range Interpretation Comments GLUCOSE (test code = 2217) 95 MG/DL BUN (test code = 2208) 19 MG/DL CREATININE (test code = 2214) 0.62 MG/DL eGFR AMER. (test code 121 ML/MIN/1.73 = 54842) eGFR NON- AMER. (test 104 ML/MIN/1.73 code = 18549) CALC BUN/CREAT (test code = 31 RATIO [...] code = 2219) 20 U/L COMPREHENSIVE METABOLIC [id number] 00:00:00 Test Item Value Reference Range Interpretation Comments GLUCOSE (test code = 2217) 95 MG/DL BUN (test code = 2208) 19 MG/DL CREATININE (test code = 2214) 0.62 MG/DL eGFR AMER. (test code 121 ML/MIN/1.73 = 34513) eGFR NON- AMER. (test 104 ML/MIN/1.73 code = 52187) CALC BUN/CREAT (test code = 31 RATIO [...] (test code = 2219) 20 U/L LIPID [id number] 00:00:00 Test Item Value Reference Range Interpretation Comments CHOLESTEROL (test code = 2210) 175 MG/DL TRIGLYCERIDES (test code = 2232) 107 MG/DL HDL CHOLESTEROL (test code = 2220) 44 MG/DL CALC LDL CHOL (test code = 2237) 110 MG/DL RISK RATIO LDL/HDL (test code = 2.49 RATIO 2238) LIPID [id number] 00:00:00 Test Item Value Reference Range Interpretation [...] (test code = 2821) 1.0 UIU/ML HEMOGLOBIN [id number] 00:00:00 Test Item Value Reference Range Interpretation Comments HEMOGLOBIN A1c (test code = 11832) 5.6 % HEMOGLOBIN [id number] 00:00:00 Test Item Value Reference Range Interpretation Comments HEMOGLOBIN A1c (test code = 50895) 5.6 % HEMOGLOBIN [id number] 00:00:00 Test Item Value Reference Range Interpretation Comments HEMOGLOBIN A1c (test code = 32916) 5.6 % CBC W/AUTO [id number] 00:00:00 Test Item Value Reference Range Interpretation [...] code = 1015) 164 K/UL CBC W/AUTO [id number] 00:00:00 Test Item Value Reference Range Interpretation [...] code = 1015) 164 K/UL CBC W/AUTO [id number] 00:00:00 Test Item Value Reference Range Interpretation [...] code = 1015) 164 K/UL COMPREHENSIVE METABOLIC [id number] 00:00:00 Test Item Value Reference Range Interpretation Comments GLUCOSE (test code = 2217) 95 MG/DL BUN (test code = 2208) 19 MG/DL CREATININE (test code = 2214) 0.62 MG/DL eGFR AMER. (test code 121 ML/MIN/1.73 = 52727) eGFR NON- AMER. (test 104 ML/MIN/1.73 code = 57836) CALC BUN/CREAT (test code = 31 RATIO [...] code = 2219) 20 U/L COMPREHENSIVE METABOLIC [id number] 00:00:00 Test Item Value Reference Range Interpretation Comments GLUCOSE (test code = 2217) 95 MG/DL BUN (test code = 2208) 19 MG/DL CREATININE (test code = 2214) 0.62 MG/DL eGFR AMER. (test code 121 ML/MIN/1.73 = 28426) eGFR NON- AMER. (test 104 ML/MIN/1.73 code = 63547) CALC BUN/CREAT (test code = 31 RATIO [...] (test code = 2219) 20 U/L LIPID [id number] 00:00:00 Test Item Value Reference Range Interpretation Comments CHOLESTEROL (test code = 2210) 175 MG/DL TRIGLYCERIDES (test code = 2232) 107 MG/DL HDL CHOLESTEROL (test code = 2220) 44 MG/DL CALC LDL CHOL (test code = 2237) 110 MG/DL RISK RATIO LDL/HDL (test code = 2.49 RATIO 2238) LIPID [id number] 00:00:00 Test Item Value Reference Range Interpretation [...] (test code = 2821) 1.0 UIU/ML HEMOGLOBIN [id number] 00:00:00 Test Item Value Reference Range Interpretation Comments HEMOGLOBIN A1c (test code = 31597) 5.6 % HEMOGLOBIN [id number] 00:00:00 Test Item Value Reference Range Interpretation Comments HEMOGLOBIN A1c (test code = 85318) 5.6 % HEMOGLOBIN [id number] 00:00:00 Test Item Value Reference Range Interpretation Comments HEMOGLOBIN A1c (test code = 21656) 5.6 % CBC W/AUTO [id number] 00:00:00 Test Item Value Reference Range Interpretation [...] code = 1015) 164 K/UL CBC W/AUTO [id number] 00:00:00 Test Item Value Reference Range Interpretation [...] code = 1015) 164 K/UL CBC W/AUTO [id number] 00:00:00 Test Item Value Reference Range Interpretation [...] code = 1015) 164 K/UL COMPREHENSIVE METABOLIC [id number] 00:00:00 Test Item Value Reference Range Interpretation Comments GLUCOSE (test code = 2217) 95 MG/DL BUN (test code = 2208) 19 MG/DL CREATININE (test code = 2214) 0.62 MG/DL eGFR AMER. (test code 121 ML/MIN/1.73 = 82862) eGFR NON- AMER. (test 104 ML/MIN/1.73 code = 05209) CALC BUN/CREAT (test code = 31 RATIO [...] code = 2219) 20 U/L COMPREHENSIVE METABOLIC [id number] 00:00:00 Test Item Value Reference Range Interpretation Comments GLUCOSE (test code = 2217) 95 MG/DL BUN (test code = 2208) 19 MG/DL CREATININE (test code = 2214) 0.62 MG/DL eGFR AMER. (test code 121 ML/MIN/1.73 = 98776) eGFR NON- AMER. (test 104 ML/MIN/1.73 code = 04414) CALC BUN/CREAT (test code = 31 RATIO [...] RATIO 2233) BILIRUBIN, TOTAL (test code = 0.5 MG/DL 2206) ALKALINE PHOSPHATASE (test 153 U/L code = 2204) AST (test code = 2218) 19 U/L ALT (test code = 2219) 20 U/L LIPID [id number] 00:00:00 Test Item Value Reference Range Interpretation Comments CHOLESTEROL (test code = 2210) 175 MG/DL TRIGLYCERIDES (test code = 2232) 107 MG/DL HDL CHOLESTEROL (test code = 2220) 44 MG/DL CALC LDL CHOL (test code = 2237) 110 MG/DL RISK RATIO LDL/HDL (test code = 2.49 RATIO 2238) LIPID [id number] 00:00:00 Test Item Value Reference Range Interpretation [...] (test code = 2821) 1.0 UIU/ML HEMOGLOBIN [id number] 00:00:00 Test Item Value Reference Range Interpretation Comments HEMOGLOBIN A1c (test code = 72317) 5.6 % HEMOGLOBIN [id number] 00:00:00 Test Item Value Reference Range Interpretation Comments HEMOGLOBIN A1c (test code = 16136) 5.6 % HEMOGLOBIN [id number] 00:00:00 Test Item Value Reference Range Interpretation Comments HEMOGLOBIN A1c (test code = 56368) 5.6 % CBC W/AUTO [id number] 00:00:00 Test Item Value Reference Range Interpretation [...] code = 1015) 164 K/UL CBC W/AUTO [id number] 00:00:00 Test Item Value Reference Range Interpretation [...] code = 1015) 164 K/UL CBC W/AUTO [id number] 00:00:00 Test Item Value Reference Range Interpretation [...] code = 1015) 164 K/UL COMPREHENSIVE METABOLIC [id number] 00:00:00 Test Item Value Reference Range Interpretation Comments GLUCOSE (test code = 2217) 95 MG/DL BUN (test code = 2208) 19 MG/DL CREATININE (test code = 2214) 0.62 MG/DL eGFR AMER. (test code 121 ML/MIN/1.73 = 56061) eGFR NON- AMER. (test 104 ML/MIN/1.73 code = 74156) CALC BUN/CREAT (test code = 31 RATIO [...] code = 2219) 20 U/L COMPREHENSIVE METABOLIC [id number] 00:00:00 Test Item Value Reference Range Interpretation Comments GLUCOSE (test code = 2217) 95 MG/DL BUN (test code = 2208) 19 MG/DL CREATININE (test code = 2214) 0.62 MG/DL eGFR AMER. (test code 121 ML/MIN/1.73 = 24128) eGFR NON- AMER. (test 104 ML/MIN/1.73 code = 51827) CALC BUN/CREAT (test code = 31 RATIO [...] (test code = 2219) 20 U/L LIPID [id number] 00:00:00 Test Item Value Reference Range Interpretation Comments CHOLESTEROL (test code = 2210) 175 MG/DL TRIGLYCERIDES (test code = 2232) 107 MG/DL HDL CHOLESTEROL (test code = 2220) 44 MG/DL CALC LDL CHOL (test code = 2237) 110 MG/DL RISK RATIO LDL/HDL (test code = 2.49 RATIO 2238) LIPID [id number] 00:00:00 Test Item Value Reference Range Interpretation [...] (test code = 2821) 1.0 UIU/ML HEMOGLOBIN [id number] 00:00:00 Test Item Value Reference Range Interpretation Comments HEMOGLOBIN A1c (test code = 80339) 5.6 % HEMOGLOBIN [id number] 00:00:00 Test Item Value Reference Range Interpretation Comments HEMOGLOBIN A1c (test code = 35903) 5.6 % HEMOGLOBIN [id number] 00:00:00 Test Item Value Reference Range Interpretation Comments HEMOGLOBIN A1c (test code = 79783) 5.6 % CBC W/AUTO [id number] 00:00:00 Test Item Value Reference Range Interpretation [...] code = 1015) 164 K/UL CBC W/AUTO [id number] 00:00:00 Test Item Value Reference Range Interpretation [...] (test code = 1015) 164 K/UL HEMOGLOBIN [id number] 00:00:00 Test Item Value Reference Range Interpretation Comments HEMOGLOBIN A1c (test code = 19890) 5.6 % CBC W/AUTO [id number] 00:00:00 Test Item Value Reference Range Interpretation [...] code = 1015) 164 K/UL COMPREHENSIVE METABOLIC [id number] 00:00:00 Test Item Value Reference Range Interpretation Comments GLUCOSE (test code = 2217) 95 MG/DL BUN (test code = 2208) 19 MG/DL CREATININE (test code = 2214) 0.62 MG/DL eGFR AMER. (test code 121 ML/MIN/1.73 = 64928) eGFR NON- AMER. (test 104 ML/MIN/1.73 code = 26658) CALC BUN/CREAT (test code = 31 RATIO [...] code = 2219) 20 U/L COMPREHENSIVE METABOLIC [id number] 00:00:00 Test Item Value Reference Range Interpretation Comments GLUCOSE (test code = 2217) 95 MG/DL BUN (test code = 2208) 19 MG/DL CREATININE (test code = 2214) 0.62 MG/DL eGFR AMER. (test code 121 ML/MIN/1.73 = 54145) eGFR NON- AMER. (test 104 ML/MIN/1.73 code = 08726) CALC BUN/CREAT (test code = 31 RATIO [...] (test code = 2219) 20 U/L LIPID [id number] 00:00:00 Test Item Value Reference Range Interpretation Comments CHOLESTEROL (test code = 2210) 175 MG/DL TRIGLYCERIDES (test code = 2232) 107 MG/DL HDL CHOLESTEROL (test code = 2220) 44 MG/DL CALC LDL CHOL (test code = 2237) 110 MG/DL RISK RATIO LDL/HDL (test code = 2.49 RATIO 2238) LIPID [id number] 00:00:00 Test Item Value Reference Range Interpretation [...] (test code = 2821) 1.0 UIU/ML HEMOGLOBIN [id number] 00:00:00 Test Item Value Reference Range Interpretation Comments HEMOGLOBIN A1c (test code = 21373) 5.6 % COMPREHENSIVE METABOLIC [id number] 00:00:00 Test Item Value Reference Range Interpretation Comments GLUCOSE (test code = 2217) 103 MG/DL BUN (test code = 2208) 16 MG/DL CREATININE (test code = 2214) 0.77 MG/DL eGFR AMER. (test code 104 ML/MIN/1.73 = 90336) eGFR NON- AMER. (test 90 ML/MIN/1.73 code = 19188) CALCULATED BUN/CREAT (test 21 RATIO code = [...] (test code = 2219) 19 U/L LIPID [id number] 00:00:00 Test Item Value Reference Range Interpretation Comments CHOLESTEROL (test code = 2210) 158 MG/DL TRIGLYCERIDES (test code = 2232) 111 MG/DL HDL CHOLESTEROL (test code = 2220) 40 MG/DL CALCULATED LDL CHOL (test code = 96 MG/DL 2236) RISK RATIO LDL/HDL (test code = 2.40 RATIO 2237) CBC W/AUTO [id number] 00:00:00 Test Item Value Reference Range Interpretation [...] code = 1015) 135 K/UL CBC W/AUTO [id number] 00:00:00 Test Item Value Reference Range Interpretation [...] (test code = 1015) 135 K/UL HEMOGLOBIN [id number] 00:00:00 Test Item Value Reference Range Interpretation Comments HEMOGLOBIN A1c (test code = 35036) 5.7 % HEMOGLOBIN [id number] 00:00:00 Test Item Value Reference Range Interpretation Comments HEMOGLOBIN A1c (test code = 26578) 5.7 % [id number] 00:00:00 Test Item Value Reference Range Interpretation Comments TSH (test code = 2821) 0.2 UIU/ML [id number] 00:00:00 Test Item Value Reference Range Interpretation Comments TSH (test code = 2821) 0.2 UIU/ML COMPREHENSIVE METABOLIC [id number] 00:00:00 Test Item Value Reference Range Interpretation Comments GLUCOSE (test code = 2217) 103 MG/DL BUN (test code = 2208) 16 MG/DL CREATININE (test code = 2214) 0.77 MG/DL eGFR AMER. (test code 104 ML/MIN/1.73 = 71735) eGFR NON- AMER. (test 90 ML/MIN/1.73 code = 63131) CALCULATED BUN/CREAT (test 21 RATIO code = [...] code = 2219) 19 U/L COMPREHENSIVE METABOLIC [id number] 00:00:00 Test Item Value Reference Range Interpretation Comments GLUCOSE (test code = 2217) 103 MG/DL BUN (test code = 2208) 16 MG/DL CREATININE (test code = 2214) 0.77 MG/DL eGFR AMER. (test code 104 ML/MIN/1.73 = 65439) eGFR NON- AMER. (test 90 ML/MIN/1.73 code = 81930) CALCULATED BUN/CREAT (test 21 RATIO code = [...] (test code = 2219) 19 U/L LIPID [id number] 00:00:00 Test Item Value Reference Range Interpretation Comments CHOLESTEROL (test code = 2210) 158 MG/DL TRIGLYCERIDES (test code = 2232) 111 MG/DL HDL CHOLESTEROL (test code = 2220) 40 MG/DL CALCULATED LDL CHOL (test code = 96 MG/DL 2237) RISK RATIO LDL/HDL (test code = 2.40 RATIO 2238) LIPID [id number] 00:00:00 Test Item Value Reference Range Interpretation Comments CHOLESTEROL (test code = 2210) 158 MG/DL TRIGLYCERIDES (test code = 2232) 111 MG/DL HDL CHOLESTEROL (test code = 2220) 40 MG/DL CALCULATED LDL CHOL (test code = 96 MG/DL 2237) RISK RATIO LDL/HDL (test code = 2.40 RATIO 2238) CBC W/AUTO [id number] 00:00:00 Test Item Value Reference Range Interpretation [...] code = 1015) 135 K/UL CBC W/AUTO [id number] 00:00:00 Test Item Value Reference Range Interpretation [...] code = 1015) 135 K/UL CBC W/AUTO [id number] 00:00:00 Test Item Value Reference Range Interpretation [...] (test code = 1015) 135 K/UL HEMOGLOBIN [id number] 00:00:00 Test Item Value Reference Range Interpretation Comments HEMOGLOBIN A1c (test code = 26370) 5.7 % HEMOGLOBIN [id number] 00:00:00 Test Item Value Reference Range Interpretation Comments HEMOGLOBIN A1c (test code = 28497) 5.7 % HEMOGLOBIN [id number] 00:00:00 Test Item Value Reference Range Interpretation Comments HEMOGLOBIN A1c (test code = 54048) 5.7 % [id number] 00:00:00 Test Item Value Reference Range Interpretation Comments TSH (test code = 2821) 0.2 UIU/ML [id number] 00:00:00 Test Item Value Reference Range Interpretation Comments TSH (test code = 2821) 0.2 UIU/ML [id number] 00:00:00 Test Item Value Reference Range Interpretation Comments TSH (test code = 2821) 0.2 UIU/ML COMPREHENSIVE METABOLIC [id number] 00:00:00 Test Item Value Reference Range Interpretation Comments GLUCOSE (test code = 2217) 103 MG/DL BUN (test code = 2208) 16 MG/DL CREATININE (test code = 2214) 0.77 MG/DL eGFR AMER. (test code 104 ML/MIN/1.73 = 57478) eGFR NON- AMER. (test 90 ML/MIN/1.73 code = 79735) CALCULATED BUN/CREAT (test 21 RATIO code = [...] ALKALINE PHOSPHATASE (test 135 U/L code = 220) SGOT (AST) (test code = 2218) 17 U/L SGPT (ALT) (test code = 2219) 19 U/L COMPREHENSIVE METABOLIC [id number] 00:00:00 Test Item Value Reference Range Interpretation Comments GLUCOSE (test code = 2217) 103 MG/DL BUN (test code = 2208) 16 MG/DL CREATININE (test code = 2214) 0.77 MG/DL eGFR AMER. (test code 104 ML/MIN/1.73 = 16693) eGFR NON- AMER. (test 90 ML/MIN/1.73 code = 77914) CALCULATED BUN/CREAT (test 21 RATIO code = [...] (test code = 2219) 19 U/L LIPID [id number] 00:00:00 Test Item Value Reference Range Interpretation Comments CHOLESTEROL (test code = 2210) 158 MG/DL TRIGLYCERIDES (test code = 2232) 111 MG/DL HDL CHOLESTEROL (test code = 2220) 40 MG/DL CALCULATED LDL CHOL (test code = 96 MG/DL 2237) RISK RATIO LDL/HDL (test code = 2.40 RATIO 2238) LIPID [id number] 00:00:00 Test Item Value Reference Range Interpretation Comments CHOLESTEROL (test code = 2210) 158 MG/DL TRIGLYCERIDES (test code = 2232) 111 MG/DL HDL CHOLESTEROL (test code = 2220) 40 MG/DL CALCULATED LDL CHOL (test code = 96 MG/DL 2237) RISK RATIO LDL/HDL (test code = 2.40 RATIO 2238) CBC W/AUTO [id number] 00:00:00 Test Item Value Reference Range Interpretation [...] code = 1015) 135 K/UL CBC W/AUTO [id number] 00:00:00 Test Item Value Reference Range Interpretation [...] code = 1015) 135 K/UL CBC W/AUTO [id number] 00:00:00 Test Item Value Reference Range Interpretation [...] (test code = 1015) 135 K/UL HEMOGLOBIN [id number] 00:00:00 Test Item Value Reference Range Interpretation Comments HEMOGLOBIN A1c (test code = 45888) 5.7 % HEMOGLOBIN [id number] 00:00:00 Test Item Value Reference Range Interpretation Comments HEMOGLOBIN A1c (test code = 61694) 5.7 % HEMOGLOBIN [id number] 00:00:00 Test Item Value Reference Range Interpretation Comments HEMOGLOBIN A1c (test code = 11173) 5.7 % [id number] 00:00:00 Test Item Value Reference Range Interpretation Comments TSH (test code = 2821) 0.2 UIU/ML [id number] 00:00:00 Test Item Value Reference Range Interpretation Comments TSH (test code = 2821) 0.2 UIU/ML [id number] 00:00:00 Test Item Value Reference Range Interpretation Comments TSH (test code = 2821) 0.2 UIU/ML COMPREHENSIVE METABOLIC [id number] 00:00:00 Test Item Value Reference Range Interpretation Comments GLUCOSE (test code = 2217) 103 MG/DL BUN (test code = 2208) 16 MG/DL CREATININE (test code = 2214) 0.77 MG/DL eGFR AMER. (test code 104 ML/MIN/1.73 = 26989) eGFR NON- AMER. (test 90 ML/MIN/1.73 code = 02364) CALCULATED BUN/CREAT (test 21 RATIO code = [...] code = 2219) 19 U/L COMPREHENSIVE METABOLIC [id number] 00:00:00 Test Item Value Reference Range Interpretation Comments GLUCOSE (test code = 2217) 103 MG/DL BUN (test code = 2208) 16 MG/DL CREATININE (test code = 2214) 0.77 MG/DL eGFR AMER. (test code 104 ML/MIN/1.73 = 43549) eGFR NON- AMER. (test 90 ML/MIN/1.73 code = 60053) CALCULATED BUN/CREAT (test 21 RATIO code = [...] (test code = 2219) 19 U/L LIPID [id number] 00:00:00 Test Item Value Reference Range Interpretation Comments CHOLESTEROL (test code = 2210) 158 MG/DL TRIGLYCERIDES (test code = 2232) 111 MG/DL HDL CHOLESTEROL (test code = 2220) 40 MG/DL CALCULATED LDL CHOL (test code = 96 MG/DL 2237) RISK RATIO LDL/HDL (test code = 2.40 RATIO 2238) LIPID [id number] 00:00:00 Test Item Value Reference Range Interpretation Comments CHOLESTEROL (test code = 2210) 158 MG/DL TRIGLYCERIDES (test code = 2232) 111 MG/DL HDL CHOLESTEROL (test code = 2220) 40 MG/DL CALCULATED LDL CHOL (test code = 96 MG/DL 2237) RISK RATIO LDL/HDL (test code = 2.40 RATIO 2238) CBC W/AUTO [id number] 00:00:00 Test Item Value Reference Range Interpretation [...] code = 1015) 135 K/UL CBC W/AUTO [id number] 00:00:00 Test Item Value Reference Range Interpretation [...] code = 1015) 135 K/UL CBC W/AUTO [id number] 00:00:00 Test Item Value Reference Range Interpretation [...] (test code = 1015) 135 K/UL HEMOGLOBIN [id number] 00:00:00 Test Item Value Reference Range Interpretation Comments HEMOGLOBIN A1c (test code = 98333) 5.7 % HEMOGLOBIN [id number] 00:00:00 Test Item Value Reference Range Interpretation Comments HEMOGLOBIN A1c (test code = 70196) 5.7 % HEMOGLOBIN [id number] 00:00:00 Test Item Value Reference Range Interpretation Comments HEMOGLOBIN A1c (test code = 62724) 5.7 % [id number] 00:00:00 Test Item Value Reference Range Interpretation Comments TSH (test code = 2821) 0.2 UIU/ML [id number] 00:00:00 Test Item Value Reference Range Interpretation Comments TSH (test code = 2821) 0.2 UIU/ML [id number] 00:00:00 Test Item Value Reference Range Interpretation Comments TSH (test code = 2821) 0.2 UIU/ML COMPREHENSIVE METABOLIC [id number] 00:00:00 Test Item Value Reference Range Interpretation Comments GLUCOSE (test code = 2217) 103 MG/DL BUN (test code = 2208) 16 MG/DL CREATININE (test code = 2214) 0.77 MG/DL eGFR AMER. (test code 104 ML/MIN/1.73 = 14654) eGFR NON- AMER. (test 90 ML/MIN/1.73 code = 92743) CALCULATED BUN/CREAT (test 21 RATIO code = [...] code = 2219) 19 U/L COMPREHENSIVE METABOLIC [id number] 00:00:00 Test Item Value Reference Range Interpretation Comments GLUCOSE (test code = 2217) 103 MG/DL BUN (test code = 2208) 16 MG/DL CREATININE (test code = 2214) 0.77 MG/DL eGFR AMER. (test code 104 ML/MIN/1.73 = 37728) eGFR NON- AMER. (test 90 ML/MIN/1.73 code = 81145) CALCULATED BUN/CREAT (test 21 RATIO code = [...] (test code = 2219) 19 U/L LIPID [id number] 00:00:00 Test Item Value Reference Range Interpretation Comments CHOLESTEROL (test code = 2210) 158 MG/DL TRIGLYCERIDES (test code = 2232) 111 MG/DL HDL CHOLESTEROL (test code = 2220) 40 MG/DL CALCULATED LDL CHOL (test code = 96 MG/DL 2237) RISK RATIO LDL/HDL (test code = 2.40 RATIO 2238) LIPID [id number] 00:00:00 Test Item Value Reference Range Interpretation Comments CHOLESTEROL (test code = 2210) 158 MG/DL TRIGLYCERIDES (test code = 2232) 111 MG/DL HDL CHOLESTEROL (test code = 2220) 40 MG/DL CALCULATED LDL CHOL (test code = 96 MG/DL 2237) RISK RATIO LDL/HDL (test code = 2.40 RATIO 2238) CBC W/AUTO [id number] 00:00:00 Test Item Value Reference Range Interpretation [...] code = 1015) 135 K/UL CBC W/AUTO [id number] 00:00:00 Test Item Value Reference Range Interpretation [...] code = 1015) 135 K/UL CBC W/AUTO [id number] 00:00:00 Test Item Value Reference Range Interpretation [...] (test code = 1015) 135 K/UL HEMOGLOBIN [id number] 00:00:00 Test Item Value Reference Range Interpretation Comments HEMOGLOBIN A1c (test code = 27327) 5.7 % HEMOGLOBIN [id number] 00:00:00 Test Item Value Reference Range Interpretation Comments HEMOGLOBIN A1c (test code = 89848) 5.7 % HEMOGLOBIN [id number] 00:00:00 Test Item Value Reference Range Interpretation Comments HEMOGLOBIN A1c (test code = 41523) 5.7 % [id number] 00:00:00 Test Item Value Reference Range Interpretation Comments TSH (test code = 2821) 0.2 UIU/ML [id number] 00:00:00 Test Item Value Reference Range Interpretation Comments TSH (test code = 2821) 0.2 UIU/ML [id number] 00:00:00 Test Item Value Reference Range Interpretation Comments TSH (test code = 2821) 0.2 UIU/ML COMPREHENSIVE METABOLIC [id number] 00:00:00 Test Item Value Reference Range Interpretation Comments GLUCOSE (test code = 2217) 103 MG/DL BUN (test code = 2208) 16 MG/DL CREATININE (test code = 2214) 0.77 MG/DL eGFR AMER. (test code 104 ML/MIN/1.73 = 29849) eGFR NON- AMER. (test 90 ML/MIN/1.73 code = 30767) CALCULATED BUN/CREAT (test 21 RATIO code = [...] code = 2219) 19 U/L COMPREHENSIVE METABOLIC [id number] 00:00:00 Test Item Value Reference Range Interpretation Comments GLUCOSE (test code = 2217) 103 MG/DL BUN (test code = 2208) 16 MG/DL CREATININE (test code = 2214) 0.77 MG/DL eGFR AMER. (test code 104 ML/MIN/1.73 = 39610) eGFR NON- AMER. (test 90 ML/MIN/1.73 code = 89829) CALCULATED BUN/CREAT (test 21 RATIO code = [...] (test code = 2219) 19 U/L LIPID [id number] 00:00:00 Test Item Value Reference Range Interpretation Comments CHOLESTEROL (test code = 2210) 158 MG/DL TRIGLYCERIDES (test code = 2232) 111 MG/DL HDL CHOLESTEROL (test code = 2220) 40 MG/DL CALCULATED LDL CHOL (test code = 96 MG/DL 2237) RISK RATIO LDL/HDL (test code = 2.40 RATIO 2238) LIPID [id number] 00:00:00 Test Item Value Reference Range Interpretation Comments CHOLESTEROL (test code = 2210) 158 MG/DL TRIGLYCERIDES (test code = 2232) 111 MG/DL HDL CHOLESTEROL (test code = 2220) 40 MG/DL CALCULATED LDL CHOL (test code = 96 MG/DL 2237) RISK RATIO LDL/HDL (test code = 2.40 RATIO 2238) CBC W/AUTO [id number] 00:00:00 Test Item Value Reference Range Interpretation [...] code = 1015) 135 K/UL CBC W/AUTO [id number] 00:00:00 Test Item Value Reference Range Interpretation [...] code = 1015) 135 K/UL CBC W/AUTO [id number] 00:00:00 Test Item Value Reference Range Interpretation [...] (test code = 1015) 135 K/UL HEMOGLOBIN [id number] 00:00:00 Test Item Value Reference Range Interpretation Comments HEMOGLOBIN A1c (test code = 34295) 5.7 % HEMOGLOBIN [id number] 00:00:00 Test Item Value Reference Range Interpretation Comments HEMOGLOBIN A1c (test code = 08689) 5.7 % HEMOGLOBIN [id number] 00:00:00 Test Item Value Reference Range Interpretation Comments HEMOGLOBIN A1c (test code = 68895) 5.7 % [id number] 00:00:00 Test Item Value Reference Range Interpretation Comments TSH (test code = 2821) 0.2 UIU/ML [id number] 00:00:00 Test Item Value Reference Range Interpretation Comments TSH (test code = 2821) 0.2 UIU/ML [id number] 00:00:00 Test Item Value Reference Range Interpretation Comments TSH (test code = 2821) 0.2 UIU/ML
[2023-07-13] MEDS ORDERED: MORPHINE 4 MG/ML SYR ONE (16:39)
[2023-07-13] MEDS ORDERED: NA CHLORIDE 0.9% 1,000 ML ONE (16:39)
[2023-07-13] MEDS ORDERED: ONDANSETRON 4 MG/2 ML VIAL ONE (16:39)
[2023-07-13 16:45] LABS: Absolute Lymphocytes (CBC) 0.8 K/uL (0.7-4.9); Hematocrit 41.1 % (36.0-45.0); Lymphocytes % 18.1 % (15.3-44.8); MCV 89.5 fL (80-100); MPV 7.5 fL (7.6-11.3); Platelets 171 thou/uL (152-406); RBC Red Blood Cell Count 4.59 M/uL (3.86-4.86)
[2023-07-13 16:48] LABS: Protime INR 1.05
[2023-07-13 17:10] LABS: Bilirubin Direct 0.1 mg/dL (0-0.2); Bilirubin Indirect, Calculated 0.4 mg/dL (0.2-0.8); Bilirubin Total 0.5 mg/dL (0.2-1.0); Magnesium 2.3 mg/dL (1.6-2.4); Potassium 3.9 mEq/L (3.5-5.1); Protein, Total 7.7 g/dL (6.4-8.2)
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
[2023-07-13] MEDS ORDERED: FENTANYL CITR 100 MCG/2 ML ONE (17:55)
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
[2023-07-13] MEDS ORDERED: KETOROLAC 30 MG/ML INJ ONE (18:58)
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
[2023-07-13 20:55] VITALS: TEMP 98.3
[2023-07-13 21:11] VITALS: BP 110/81; O2SAT 98
--- NOTE | 2023-07-16 18:05 | EKG ---
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
--- NOTE | 2023-07-16 18:06 | EKG ---
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
--- NOTE | 2023-07-16 18:06 | EKG ---
Test Date: 2023-07-13 Test Time: 16:33:22 Supervising Nurse: Kris FLEMING MEASUREMENT RESULTS: Intervals: Rate: 69 AL: 160 QRSD: 88 QT: 378 QTc: 405 [place]: P: 59 AL: 160 QRS: -23 T: 10 INTERPRETIVE STATEMENTS: Normal sinus rhythm Voltage criteria for left ventricular hypertrophy ST abnormality, possible digitalis effect Abnormal ECG Compared to ECG 04/17/2022 03:01:11 ST (T wave) deviation now present Sinus bradycardia no longer present Electronically Signed On 07-16-23 17:59:20 CDT by Maxx Macias
== END 2023-07-13 20:45 | disposition home or self-care (01) ==
LOC: ER 16:10
DX: M54.2 Cervicalgia (principal); R07.89 Other chest pain; M54.50 Low back pain, unspecified; V49.40XA Driver injured in collision with unspecified motor vehicles in traffic accident, initial encounter; Z88.5 Allergy status to narcotic agent; Z79.82 Long term (current) use of aspirin; Z86.73 Personal history of transient ischemic attack (TIA), and cerebral infarction without residual deficits
CPT/HCPCS: 96361; 93005 ×3; 85025; 80048; 36415; 83735; 85610; 80076; 84484 ×2; 70450; 72125; 71260; 74177; 71045; 96375; 96374; 99284; Q9967; J3010; J7030; J2405

== ENCOUNTER 2023-10-28 17:04 | Emergency (ER) | payer OTHER ==
--- OUTSIDE RECORDS SUMMARY | 2023-10-28 17:19 | XMS REPORT | Continuity of Care Document ---
:1965 Author Organization [facility] t Address [address] [facility] [address]. [address] [place] [address] Care Team Providers Name Role Phone Agnieszka MADDEN, [facility] Primary Care Physician [phone] Shadi Penn Attending Clinician Unavailable [email or web address]_S Attending Clinician Unavailable NATO MEEKS Attending Clinician Unavailable Doctor Unassigned, [place] Attending Clinician Unavailable Dolores Salazar Attending Clinician DOLORES LEONG Attending Clinician Unavailable [email or web address]_S Admitting Clinician Unavailable Payers Payer Name Policy Type Policy Number Effective Date Expiration Date Raquel [place] - [id number] [facility] 3 ([facility]) [employer] [facility] 9 [id number] 2022 [place]: [facility] 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 Primary Primary Diagnosis Active Commo n osteoarthr osteoarthr Sp xochitl itis of itis of - [facility] right knee right knee [facility] Patellar Patellar Diagnosis Active Com mon tendinitis tendinitis Sp xochitl of right of right - [facility] knee knee [facility] Allergies, Adverse Reactions, Alerts Allergy [...] Adverse Active Info Not Common Reaction Available [facility] Social History Social Habit Start Date Stop Date Quantity Comments Source Tobacco use and 2019-08-22 2019-08-22 Current user Univers ity of exposure 00:00:00 00:00:00 [facility] Alcohol intake 2019-08-22 2019-08-22 Current drinker Unive rsity of 00:00:00 00:00:00 of alcohol [facility] (finding) [place] Sex [birth year] Universit y of 00:00:00 00:00:00 [facility] Smoking Status Start Date Stop Date Source Current some day smoker 2019-08-22 00:00:00 Univ ersity of [facility] Medications Ordered Filled Start Stop Current Ordering Indication Dosage Frequency Signature Comments Components Source Medication Medication Date Date Medication? Clinician (SIG) Name Name TAKE 1 TAB 2022-0 No 100 Q12H X 5 1-23 DAYS 00:00: 00 TAKE 1 TAB 2022-0 No 100 Q12H X 5 1-23 DAYS 00:00: 00 Dose 2022-0 No Unknown 1-06 00:00: 00 TAKE 10 ML 2022-1 No BY MOUTH 1-22 EVERY 6 TO 00:00: 8 HOURS 00 NEEDED FOR COUGH Dose 2021-1 No Unknown 1-21 00:00: 00 Dose 2021-1 No Unknown 1- 00:00: 00 Dose 2021-1 No Unknown 1- 00:00: 00 Dose 2021-1 No Unknown 1- 00:00: 00 TAKE 1 2021-1 No TABLET BY 1- MOUTH EVERY 00:00: 8 HOURS 00 NEEDED [...] 2-0 No Unknown 8 00:00: 00 &lt 2-0 No 20 8- 00:00: 00 cromolyn 4 2021-0 No 12% % eye drops 06-27 00:00: 00 Dose 2-0 No Unknown 06-27 00:00: 00 Dose 2-0 No Unknown 06-27 00:00: 00 Dose 2-0 No Unknown 06-27 00:00: 00 &lt 2-0 No 20 06-27 00:00: 00 cromolyn 4 [...] Unknown 06-27 00:00: 00 &lt 2022-0 No 6- 00:00: 00 TAKE 1 2022-0 No TABLET [...] 00 TAKE 1 2022-0 No TABLET BY 627 MOUTH TWICE 00:00: DAILY 00 &lt 2022-0 No 05-22 00:00: 00 &lt 2022-0 No 05-22 00:00: 00 &lt 2022-0 No 05-22 00:00: 00 TAKE 1 2-0 No TABLET BY 6 MOUTH TWICE 00:00: DAILY 00 &lt 2022-0 [...] tablet 00:00: 00 clarithromy 2022-0 No 1mg jasyhree 500 mg 6-01 tablet 00:00: 00 pantoprazol 2022-0 No 1mg e 40 mg 6-01 tablet,vesta 00:00: yed release 00 amoxicillin 2022-0 No 2mg 500 mg 6-01 tablet 00:00: 00 metronidazo 2022-0 No 1mg le 500 mg 6-01 tablet 00:00: 00 clarithromy 2-0 No 1mg jayshree 500 mg 6-01 tablet 00:00: 00 sucralfate 2-0 No 1gram 1 [...] 2-0 No Unknown 5- 00:00: 00 Dose 2022-0 No Unknown 5-26 00:00: 00 Dose 2022-0 No Unknown 5-26 00:00: 00 Dose 2022-0 No Unknown 5-16 [...] 2022-0 No Unknown 5-13 00:00: 00 amoxicillin 2021-1 No 1mg 875 2-23 mg-potassiu 00:00: m [...] mcg/actuati 00 on nasal spray,suspe nsion amoxicillin 2020- No 1mg 875 2-23 mg-potassiu [...] 00 release Flonase 2020-0 No 1mcg/ac Allergy 8 tuation Relief 50 00:00: mcg/actuati 00 on nasal spray,suspe nsion Zyrtec-D 5 2020-0 No 1mg mg-120 mg 8- tablet,exte 00:00: nded 00 release Flonase 2020-0 No 1mcg/ac Allergy 8 tuation Relief 50 00:00: mcg/actuati 00 on [...] 100 6-09 mg capsule 00:00: 00 prednisone 2021-0 No mg 20 mg 5-31 tablet 00:00: [...] 00 clavulanate 125 mg tablet Vitamin D3 2020-0 No 1(1,000 25 mcg 5-02 unit) (1,000 00:00: unit) 00 capsule Vitamin D3 2020-0 No 1(1,000 25 mcg 5-02 unit) (1,000 00:00: unit) 00 capsule Vitamin D3 2020-0 No 1(1,000 25 mcg 5-02 unit) (1,000 00:00: unit) 00 capsule Vitamin D3 2020-0 No 1(1,000 25 mcg 5-02 unit) (1,000 00:00: unit) 00 capsule Vitamin D3 2020-0 No 1(1,000 25 mcg 5-02 unit) (1,000 00:00: unit) 00 capsule Vitamin D3 2020-0 No 1(1,000 25 mcg 5-02 unit) (1,000 [...] unit-1 00:00: mg/mL eye 00 drops Polytrim 1-0 No 21 10,000 4-22 mg/mL unit-1 00:00: mg/mL eye 00 drops Polytrim 1-0 No 21 10,000 4-22 mg/mL unit-1 00:00: mg/mL eye 00 drops Polytrim 1-0 No 21 10,000 4-22 mg/mL unit-1 00:00: mg/mL eye 00 drops Polytrim 1-0 No 21 10,000 4-22 mg/mL unit-1 00:00: [...] No 1mg tablet 02-17 00:00: 00 amoxicillin 2021-0 No 1mg 875 1-07 mg-potassiu [...] Spirit 00:00: 00:00 - [facility] 00 :00 [facility] aspirin 81 2020-0 Yes 81mg Take 81 mg U nivers mg chewable 5-22 by mouth ity of tablet 19:38: daily. [address] aspirin 81 2020-0 Yes 81mg Take 81 mg U nivers mg chewable 5-22 by mouth ity of tablet 19:38: daily. [address] aspirin 81 2020-0 Yes 81mg Take 81 mg U nivers mg chewable 5-22 by mouth ity of tablet 19:38: daily. [address] aspirin 81 2020-0 Yes 81mg Take 81 mg U nivers mg chewable 5-22 by mouth ity of tablet 19:38: daily. [address] aspirin 81 2020-0 Yes 81mg Take 81 mg U nivers mg chewable 5-22 by mouth ity of tablet 19:38: daily. [address] Augmentin 2020-0 No 1mg 875 mg-125 [...] 3-09 capsule 00:00: 00 ibuprofen 2018-0 Yes [id number] 600mg Take 1 U nivers 600 mg 6-24 tablet by ity of tablet 00:00: mouth [place] 00 every 6 Medical (six) Branch hours as needed for Pain (scale 4-6). phenazopyri 2018-0 Yes [id number] 200mg Take 1 Univers dine 200 mg 6-24 tablet by ity of tablet 00:00: mouth 3 [place] 00 (three) Medical times Branch daily as needed for Pain. ibuprofen 0 Yes [id number] 600mg Take 1 U nivers 600 mg 6-24 tablet by ity of tablet 00:00: mouth [place] 00 every 6 Medical (six) Branch hours as needed for Pain (scale 4-6). phenazopyri 0 Yes [id number] 200mg Take 1 Univers dine 200 mg 6-24 tablet by ity of tablet 00:00: mouth 3 [place] 00 (three) Medical times Branch daily as needed for Pain. ibuprofen 2019-0 Yes [id number] 600mg Take 1 U nivers 600 mg 6-24 tablet by ity of tablet 00:00: mouth [place] 00 every 6 Medical (six) Branch hours as needed for Pain (scale 4-6). phenazopyri 2019-0 Yes [id number] 200mg Take 1 Univers dine 200 mg 6-24 tablet by ity of tablet 00:00: mouth 3 [place] 00 (three) Medical times Branch daily as needed for Pain. ibuprofen 0 Yes [id number] 600mg Take 1 U nivers 600 mg 6-24 tablet by ity of tablet 00:00: mouth [place] 00 every 6 Medical (six) Branch hours as needed for Pain (scale 4-6). phenazopyri 2019-0 Yes [id number] 200mg Take 1 Univers dine 200 mg 6-24 tablet by ity of tablet 00:00: mouth 3 [place] 00 (three) Medical times Branch daily as needed for Pain. ibuprofen 0 Yes [id number] 600mg Take 1 U nivers 600 mg 6-24 tablet by ity of tablet 00:00: mouth [place] 00 every 6 Medical (six) Branch hours as needed for Pain (scale 4-6). phenazopyri 0 Yes [id number] 200mg Take 1 Univers dine 200 mg 6-24 tablet by ity of tablet 00:00: mouth 3 [place] 00 (three) Medical times Branch daily as needed for Pain. ibuprofen 0 Yes [id number] 600mg Take 1 U nivers 600 mg 6-24 tablet by ity of tablet 00:00: mouth [place] 00 every 6 Medical (six) Branch hours as needed for Pain (scale 4-6). phenazopyri 2018-0 Yes [id number] 200mg Take 1 Univers dine 200 mg 6-24 tablet by ity of tablet 00:00: mouth 3 [place] 00 (three) Medical times Branch daily as needed for Pain. ibuprofen 0 Yes [id number] 600mg Take 1 U nivers 600 mg 6-24 tablet by ity of tablet 00:00: mouth [place] 00 every 6 Medical (six) Branch hours as needed for Pain (scale 4-6). phenazopyri 2018-0 Yes [id number] 200mg Take 1 Univers dine 200 mg 6-24 tablet by ity of tablet 00:00: mouth 3 [place] 00 (three) Medical times Branch daily as needed for Pain. ibuprofen 2018-0 Yes [id number] 600mg Take 1 U nivers 600 mg 6-24 tablet by ity of tablet 00:00: mouth [place] 00 every 6 Medical (six) Branch hours as needed for Pain (scale 4-6). phenazopyri 2018-0 Yes [id number] 200mg Take 1 Univers dine 200 mg 6-24 tablet by ity of tablet 00:00: mouth 3 [place] 00 (three) Medical times Branch daily as needed for Pain. ibuprofen Yes [id number] 600mg Take 1 U nivers 600 mg 6-24 tablet by ity of tablet 00:00: mouth [place] 00 every 6 Medical (six) Branch hours as needed for Pain (scale 4-6). phenazopyri 0 Yes [id number] 200mg Take 1 Univers dine 200 mg 6-24 tablet by ity of tablet 00:00: mouth 3 [place] 00 (three) Medical times Branch daily as needed for Pain. ibuprofen Yes [id number] 600mg Take 1 U nivers 600 mg 6-24 tablet by ity of tablet 00:00: mouth [place] 00 every 6 Medical (six) Branch hours as needed for Pain (scale 4-6). phenazopyri 0 Yes [id number] 200mg Take 1 Univers dine 200 mg 6-24 tablet by ity of tablet 00:00: mouth 3 00 (three) Medical times Branch daily as needed for Pain. ibuprofen Yes [id number] 600mg Take 1 U nivers 600 mg 6-24 tablet by ity of tablet 00:00: mouth [place] 00 every 6 Medical (six) Branch hours as needed for Pain (scale 4-6). phenazopyri 0 Yes [id number] 200mg Take 1 Univers dine 200 mg 6-24 tablet by ity of tablet 00:00: mouth 3 00 (three) Medical times Branch daily as needed for Pain. ibuprofen 0 Yes [id number] 600mg Take 1 U nivers 600 mg 6-24 tablet by ity of tablet 00:00: mouth [place] 00 every 6 Medical (six) Branch hours as needed for Pain (scale 4-6). phenazopyri 0 Yes [id number] 200mg Take 1 Univers dine 200 mg 6-24 tablet by ity of tablet 00:00: mouth 3 [place] 00 (three) Medical times Branch daily as needed for Pain. ibuprofen 2018-0 Yes [id number] 600mg Take 1 U nivers 600 mg 6-24 tablet by ity of tablet 00:00: mouth [place] 00 every 6 Medical (six) Branch hours as needed for Pain (scale 4-6). phenazopyri 2018-0 Yes [id number] 200mg Take 1 Univers dine 200 mg 6-24 tablet by ity of tablet 00:00: mouth 3 [place] 00 (three) Medical times Branch daily as needed for Pain. ibuprofen 2019-0 Yes [id number] 600mg Take 1 U nivers 600 mg 6-24 tablet by ity of tablet 00:00: mouth [place] 00 every 6 Medical (six) Branch hours as needed for Pain (scale 4-6). phenazopyri 2019-0 Yes [id number] 200mg Take 1 Univers dine 200 mg 6-24 tablet by ity of tablet 00:00: mouth 3 [place] 00 (three) Medical times Branch daily as needed for Pain. ibuprofen 0 Yes [id number] 600mg Take 1 U nivers 600 mg 6-24 tablet by ity of tablet 00:00: mouth [place] 00 every 6 Medical (six) Branch hours as needed for Pain (scale 4-6). phenazopyri 2018-0 Yes [id number] 200mg Take 1 Univers dine 200 mg 6-24 tablet by ity of tablet 00:00: mouth 3 [place] 00 (three) Medical times Branch daily as needed for Pain. ibuprofen 0 Yes [id number] 600mg Take 1 U nivers 600 mg 6-24 tablet by ity of tablet 00:00: mouth [place] 00 every 6 Medical (six) Branch hours as needed for Pain (scale 4-6). phenazopyri 2018-0 Yes [id number] 200mg Take 1 Univers dine 200 mg 6-24 tablet by ity of tablet 00:00: mouth 3 [place] 00 (three) Medical times Branch daily as needed for Pain. ibuprofen 2018-0 Yes [id number] 600mg Take 1 U nivers 600 mg 6-24 tablet by ity of tablet 00:00: mouth [place] 00 every 6 Medical (six) Branch hours as needed for Pain (scale 4-6). phenazopyri 2019-0 Yes [id number] 200mg Take 1 Univers dine 200 mg 6-24 tablet by ity of tablet 00:00: mouth 3 [place] 00 (three) Medical times Branch daily as needed for Pain. ibuprofen 2018-0 Yes [id number] 600mg Take 1 U nivers 600 mg 6-24 tablet by ity of tablet 00:00: mouth [place] 00 every 6 Medical (six) Branch hours as needed for Pain (scale 4-6). phenazopyri 2019-0 Yes [id number] 200mg Take 1 Univers dine 200 mg 6-24 tablet by ity of tablet 00:00: mouth 3 [place] 00 (three) Medical times Branch daily as needed for Pain. ibuprofen 0 Yes [id number] 600mg Take 1 U nivers 600 mg 6-24 tablet by ity of tablet 00:00: mouth [place] 00 every 6 Medical (six) Branch hours as needed for Pain (scale 4-6). phenazopyri 0 Yes [id number] 200mg Take 1 Univers dine 200 mg 6-24 tablet by ity of tablet 00:00: mouth 3 [place] 00 (three) Medical times Branch daily as needed for Pain. ibuprofen 0 Yes [id number] 600mg Take 1 U nivers 600 mg 6-24 tablet by ity of tablet 00:00: mouth [place] 00 every 6 Medical (six) Branch hours as needed for Pain (scale 4-6). phenazopyri Yes [id number] 200mg Take 1 Univers dine 200 mg 6-24 tablet by ity of tablet 00:00: mouth 3 00 (three) Medical times Branch daily as needed for Pain. ibuprofen Yes [id number] 600mg Take 1 U nivers 600 mg 6-24 tablet by ity of tablet 00:00: mouth [place] 00 every 6 Medical (six) Branch hours as needed for Pain (scale 4-6). phenazopyri 0 Yes [id number] 200mg Take 1 Univers dine 200 mg 6-24 tablet by ity of tablet 00:00: mouth 3 00 (three) Medical times Branch daily as needed for Pain. phenazopyri 0 Yes [id number] 200mg Take 1 Univers dine 200 mg 6-24 tablet by ity of tablet 00:00: mouth 3 [place] 00 (three) Medical times Branch daily as needed for Pain. ibuprofen 0 Yes [id number] 600mg Take 1 U nivers 600 mg 6-24 tablet by ity of tablet 00:00: mouth [place] 00 every 6 Medical (six) Branch hours as needed for Pain (scale 4-6). phenazopyri 0 Yes [id number] 200mg Take 1 Univers dine 200 mg 6-24 tablet by ity of tablet 00:00: mouth 3 [place] 00 (three) Medical times Branch daily as needed for Pain. ibuprofen 2018-0 Yes [id number] 600mg Take 1 U nivers 600 mg 6-24 tablet by ity of tablet 00:00: mouth [place] 00 every 6 Medical (six) Branch hours as needed for Pain (scale 4-6). aspirin 81 2019-0 Yes 81mg Take 81 mg U nivers mg chewable 4-05 by mouth ity of tablet 21:37: daily. [place] [address] Medical Branch aspirin 81 2019-0 Yes 81mg Take 81 mg U nivers mg chewable 4-05 by mouth ity of tablet 21:37: daily. [place] [address] Medical Branch aspirin 81 2019-0 Yes 81mg Take 81 mg U nivers mg chewable 4-05 by mouth ity of tablet 21:37: daily. [address] Branch aspirin 81 2019-0 Yes 81mg Take 81 mg U nivers mg chewable 4-05 by mouth ity of tablet 21:37: daily. [address] Branch aspirin 81 2019-0 Yes 81mg Take 81 mg U nivers mg chewable 4-05 by mouth ity of tablet 21:37: daily. [address] Branch aspirin 81 2019-0 Yes 81mg Take 81 mg U nivers mg chewable 4-05 by mouth ity of tablet 21:37: daily. [address] Branch aspirin 81 2019-0 Yes 81mg Take 81 mg U nivers mg chewable 4-05 by mouth ity of tablet 21:37: daily. [address] Branch aspirin 81 2019-0 Yes 81mg Take 81 mg U nivers mg chewable 4-05 by mouth ity of tablet 21:37: daily. [address] Branch aspirin 81 2019-0 Yes 81mg Take 81 mg U nivers mg chewable 4-05 by mouth ity of tablet 21:37: daily. [address] Branch aspirin 81 2019-0 Yes 81mg Take 81 mg U nivers mg chewable 4-05 by mouth ity of tablet 21:37: daily. [address] Branch aspirin 81 2019-0 Yes 81mg Take 81 mg U nivers mg chewable 4-05 by mouth ity of tablet 21:37: daily. [address] Branch aspirin 81 2019-0 Yes 81mg Take 81 mg U nivers mg chewable 4-05 by mouth ity of tablet 21:37: daily. [address] Branch aspirin 81 2019-0 Yes 81mg Take 81 mg U nivers mg chewable 4-05 by mouth ity of tablet 21:37: daily. [address] aspirin 81 2019-0 Yes 81mg Take 81 mg U nivers mg chewable 4-05 by mouth ity of tablet 21:37: daily. [address] aspirin 81 2019-0 Yes 81mg Take 81 mg U nivers mg chewable 4-05 by mouth ity of tablet 21:37: daily. [address] aspirin 81 2019-0 Yes 81mg Take 81 mg U nivers mg chewable 4-05 by mouth ity of tablet 21:37: daily. [address] aspirin 81 2019-0 Yes 81mg Take 81 mg U nivers mg chewable 4-05 by mouth ity of tablet 21:37: daily. [address] aspirin 81 2019-0 Yes 81mg Take 81 mg U nivers mg chewable 4-05 by mouth ity of tablet 21:37: daily. [address] erythromyci 2017-11 No 5(0.5 n 5 [...] mg-10,000 00 unit/mL-1 % ear drops,susp prednisone 2017- No 1mg 20 mg 0-30 tablet 00:00: 00 loratadine 2017- No 1mg 10 mg 0-24 tablet 00:00: 00 loratadine 2017- No 1mg 10 mg 0-24 tablet 00:00: 00 prednisone 2017- No mg 20 mg 0-24 tablet 00:00: 00 promethazin 2017-11 No 10mg/5 e-DM 6.25 0-24 mL mg-15 mg/5 00:00: mL syrup 00 prednisone 2017- No mg 20 mg 0-24 tablet 00:00: 00 promethazin 2017- No 10mg/5 e-DM 6.25 0-24 mL mg-15 mg/5 00:00: mL syrup 00 loratadine 2017-11 No 1mg 10 mg 0-24 tablet 00:00: 00 prednisone 2017- No mg 20 mg 0-24 tablet 00:00: 00 promethazin 2017-11 No 10mg/5 e-DM 6.25 0-24 mL mg-15 mg/5 00:00: mL syrup 00 loratadine 2017-11 No 1mg 10 mg 0-24 tablet 00:00: 00 prednisone 2017- No mg 20 mg 0-24 tablet 00:00: 00 promethazin 2017-11 No 10mg/5 e-DM 6.25 0-24 mL mg-15 mg/5 00:00: mL syrup 00 loratadine 2017-11 No 1mg 10 mg 0-24 tablet 00:00: 00 prednisone 2017- No mg 20 mg 0-24 tablet 00:00: 00 promethazin 2017-11 No 10mg/5 e-DM 6.25 0-24 mL mg-15 mg/5 00:00: mL syrup 00 loratadine 2017-11 No 1mg 10 mg 0-24 tablet 00:00: 00 prednisone 2017- No mg 20 mg 0-24 tablet 00:00: 00 promethazin 2017-11 No 10mg/5 e-DM 6.25 0-24 mL mg-15 mg/5 00:00: mL syrup 00 oxybutynin 2017-0 No 1mg chloride 5 7-10 mg tablet [...] ity of mg tablet 00:00: mouth ([facility] [place]) Medical times Branch daily as needed for Abdominal pain for up to 30 doses. dicyclomine 2018-0 Yes 20mg Take 1 Univ ers (BENTYL) 20 6-21 tablet by ity of mg tablet 00:00: mouth ([facility]) Medical times Branch daily as needed for Abdominal pain for up to 30 doses. dicyclomine 2018-0 Yes 20mg Take 1 Univ ers (BENTYL) 20 6-21 tablet by ity of mg tablet 00:00: mouth ([facility]) Medical times Branch daily as needed for Abdominal pain for up to 30 doses. dicyclomine 2018-0 Yes 20mg Take 1 Univ ers (BENTYL) 20 6-21 tablet by ity of mg tablet 00:00: mouth ([facility]) Medical times Branch daily as needed for Abdominal pain for up to 30 doses. dicyclomine 2018-0 Yes 20mg Take 1 Univ ers (BENTYL) 20 6-21 tablet by ity of mg tablet 00:00: mouth ([facility]) Medical times Branch daily as needed for Abdominal pain for up to 30 doses. dicyclomine 2018-0 Yes 20mg Take 1 Univ ers (BENTYL) 20 6-21 tablet by ity of mg tablet 00:00: mouth ([facility]) Medical times Branch daily as needed for Abdominal pain for up to 30 doses. dicyclomine 2018-0 Yes 20mg Take 1 Univ ers (BENTYL) 20 6-21 tablet by ity of mg tablet 00:00: mouth ([facility]) Medical times Branch daily as needed for Abdominal pain for up to 30 doses. dicyclomine 2018-0 Yes 20mg Take 1 Univ ers (BENTYL) 20 6-21 tablet by ity of mg tablet 00:00: mouth ([facility]) Medical times Branch daily as needed for Abdominal pain for up to 30 doses. dicyclomine 2018-0 Yes 20mg Take 1 Univ ers (BENTYL) 20 6-21 tablet by ity of mg tablet 00:00: mouth ([facility]) Medical times Branch daily as needed for Abdominal pain for up to 30 doses. dicyclomine 2018-0 Yes 20mg Take 1 Univ ers (BENTYL) 20 6-21 tablet by ity of mg tablet 00:00: mouth ([facility]) Medical times Branch daily as needed for Abdominal pain for up to 30 doses. dicyclomine 2018-0 Yes 20mg Take 1 Univ ers (BENTYL) 20 6-21 tablet by ity of mg tablet 00:00: mouth ([facility]) Medical times Branch daily as needed for Abdominal pain for up to 30 doses. dicyclomine 2018-0 Yes 20mg Take 1 Univ ers (BENTYL) 20 6-21 tablet by ity of mg tablet 00:00: mouth ([facility]) Medical times Branch daily as needed for Abdominal pain for up to 30 doses. dicyclomine 2018-0 Yes 20mg Take 1 Univ ers (BENTYL) 20 6-21 tablet by ity of mg tablet 00:00: mouth ([facility]) Medical times Branch daily as needed for Abdominal pain for up to 30 doses. dicyclomine 2018-0 Yes 20mg Take 1 Univ ers (BENTYL) 20 6-21 tablet by ity of mg tablet 00:00: mouth ([facility]) Medical times Branch daily as needed for Abdominal pain for up to 30 doses. dicyclomine 2018-0 Yes 20mg Take 1 Univ ers (BENTYL) 20 6-21 tablet by ity of mg tablet 00:00: mouth ([facility]) Medical times Branch daily as needed for Abdominal pain for up to 30 doses. dicyclomine 2018-0 Yes 20mg Take 1 Univ ers (BENTYL) 20 6-21 tablet by ity of mg tablet 00:00: mouth ([facility]) Medical times Branch daily as needed for Abdominal pain for up to 30 doses. dicyclomine 2018-0 Yes 20mg Take 1 Univ ers (BENTYL) 20 6-21 tablet by ity of mg tablet 00:00: mouth ([facility]) Medical times Branch daily as needed for Abdominal pain for up to 30 doses. dicyclomine 2018-0 Yes 20mg Take 1 Univ ers (BENTYL) 20 6-21 tablet by ity of mg tablet 00:00: mouth ([facility]) Medical times Branch daily as needed for [...] 12.5 mg 2-16 tablet 00:00: 00 Zithromax 2014-1 No 1mg Z-Carlos 250 1-12 mg tablet 00:00: 00 Zithromax 2014-1 No 1mg Z-Carlos 250 1-12 mg tablet 00:00: 00 Zithromax 2014-1 No 1mg Z-Carlos 250 1-12 mg tablet 00:00: 00 Zithromax 2014-1 No 1mg Z-Carlos 250 1-12 mg tablet 00:00: 00 Zithromax 2014-1 No 1mg Z-Carlos 250 1-12 mg tablet 00:00: 00 Zithromax 2014-1 No 1mg Z-Carlos 250 1-12 mg tablet [...] Robert not Common Sodium Sodium [place] defined [facility] Artificial Artificial Yes Robert not Common Tears Tears [facility] defined [facility] Yes Robert not Comm on [place] defined [facility] MethylPREDN MethylPREDN Yes Robert not Common ISolone ISolone [place] defined [facility] Valacyclovi Valacyclovi Yes Robert not Common r HCl r HCl [facility] defined [facility] Aspirin Low Aspirin Low Yes Robert not Common Dose Dose [facility] defined [facility] PredniSONE PredniSONE Yes Robert not Common [facility] defined [facility] Amoxicillin Amoxicillin Yes Robert not Common -Pot -Pot [place] defined [facility] Clavulanate Clavulanate [facility] Vital Signs Vital Name Observation Time Observation [...] Source Performed INSURANCE CORRESPONDENCE 2021-02-22 05:01[facility]00 [facility] AUTHORIZATION FOR RELEASE 2021-01-25 06:01:00 Doctor Unassigned, [facility] EXTERNAL PROVIDER RECORDS 2020-02-16 05:01:00 Doctor Unassigned, [facility] Name [facility] EXTERNAL PROVIDER RECORDS 2020-01-29 06:01:00 Doctor Unassigned, [facility] Name [facility] EXTERNAL PROVIDER RECORDS 2020-01-19 06:01:00 Doctor Unassigned, [facility] Name [facility] EXTERNAL PROVIDER RECORDS 2019-08-06 05:01:00 Doctor Friedassigned, [facility] Name [facility] Plan of Care Planned Activity Planned Date Details Comments Source Goal Plan of Care Note [code = 13280-2] Goal Plan of Care Note [code = 68834-7] Goal Plan of Care Note [code = 76504-7] Goal Plan of Care Note [code = 65702-6] Goal Plan of Care Note [code = 05666-4] Goal Plan of Care Note [code = 02995-9] Goal Plan of Care Note [code = 33022-9] Goal Plan of Care Note [code = 46138-7] Goal Plan of Care Note [code = 06117-1] Goal Plan of Care Note [code = 48707-8] Goal Plan of Care Note [code = 10856-3] Goal Plan of Care Note [code = 01638-4] Goal Plan of Care Note [code = 87614-6] Goal Plan of Care Note [code = 23007-9] Goal Plan of Care Note [code = 93816-2] Goal Plan of Care Note [code = 85627-9] Goal Plan of Care Note [code = 68912-8] Goal Plan of Care Note [code = 21395-0] Goal Plan of Care Note [code = 62665-2] Goal Plan of Care Note [code = 08695-1] Goal Plan of Care Note [code = 30684-2] Goal Plan of Care Note [code = 99364-1] Goal Plan of Care Note [code = 76352-8] Goal Plan of Care Note [code = 84660-0] Goal Plan of Care Note [code = 56578-6] Goal Plan of Care Note [code = 43173-1] Goal Plan of Care Note [code = 41735-4] Goal Plan of Care Note [code = 71524-6] Goal Plan of Care Note [code = 05285-7] Goal Plan of Care Note [code = 65032-9] Goal Plan of Care Note [code = 60162-0] Goal Plan of Care Note [code = 92800-9] Goal Plan of Care Note [code = 56505-2] Goal Plan of Care Note [code = 82918-6] Goal Plan of Care Note [code = 58095-0] Goal Plan of Care Note [code = 91759-5] Goal Plan of Care Note [code = 55819-9] Goal Plan of Care Note [code = 36609-8] Goal Plan of Care Note [code = 31785-5] Goal Plan of Care Note [code = 25845-6] Goal Plan of Care Note [code = 45698-6] Goal Plan of Care Note [code = 17944-4] Goal Plan of Care Note [code = 67304-6] Goal Plan of Care Note [code = 88271-0] Goal Plan of Care Note [code = 01182-8] Goal Plan of Care Note [code = 40645-6] Goal Plan of Care Note [code = 11409-3] Goal Plan of Care Note [code = 74075-2] Goal Plan of Care Note [code = 94422-1] Goal Plan of Care Note [code = 28620-5] Goal Plan of Care Note [code = 66480-7] Goal Plan of Care Note [code = 85020-3] Goal Plan of Care Note [code = 69570-0] Goal Plan of Care Note [code = 01093-7] Goal Plan of Care Note [code = 04202-0] Goal Plan of Care Note [code = 86235-8] Goal Plan of Care Note [code = 24853-2] Goal Plan of Care Note [code = 47220-9] Goal Plan of Care Note [code = 63455-0] Goal Plan of Care Note [code = 07126-1] Goal Plan of Care Note [code = 45447-2] Goal Plan of Care Note [code = 68868-1] Goal Plan of Care Note [code = 68562-2] Goal Plan of Care Note [code = 00927-1] Goal Plan of Care Note [code = 82057-1] Goal Plan of Care Note [code = 34982-3] Goal Plan of Care Note [code = 93877-2] Goal Plan of Care Note [code = 32292-1] Goal Plan of Care Note [code = 09955-9] Goal Plan of Care Note [code = 62967-0] Goal Plan of Care Note [code = 80516-4] Goal Plan of Care Note [code = 41608-8] Goal Plan of Care Note [code = 53102-0] Goal Plan of Care Note [code = 37829-5] Goal Plan of Care Note [code = 19883-9] Goal Plan of Care Note [code = 43868-1] Goal Plan of Care Note [code = 68157-7] Goal Plan of Care Note [code = 50745-3] Goal Plan of Care Note [code = 79920-4] Goal Plan of Care Note [code = 31190-0] Goal Plan of Care Note [code = 57045-0] Goal Plan of Care Note [code = 29387-5] Goal Plan of Care Note [code = 92977-4] Goal Plan of Care Note [code = 82166-2] Goal Plan of Care Note [code = 40247-7] Goal Plan of Care Note [code = 78635-0] Goal Plan of Care Note [code = 98905-9] Goal Plan of Care Note [code = 82677-2] Goal Plan of Care Note [code = 62373-5] Goal Plan of Care Note [code = 48346-3] Goal Plan of Care Note [code = 25215-0] Goal Plan of Care Note [code = 79780-7] Goal Plan of Care Note [code = 24651-9] Goal Plan of Care Note [code = 82495-4] Goal Plan of Care Note [code = 95663-7] Goal Plan of Care Note [code = 17980-8] Goal Plan of Care Note [code = 47834-9] Goal Plan of Care Note [code = 91363-9] Goal Plan of Care Note [code = 69406-8] Goal Plan of Care Note [code = 03481-7] Goal Plan of Care Note [code = 80395-0] Goal Plan of Care Note [code = 18173-2] Goal Plan of Care Note [code = 55951-5] Goal Plan of Care Note [code = 99646-9] Goal Plan of Care Note [code = 61538-7] Goal Plan of Care Note [code = 48379-4] Goal Plan of Care Note [code = 62556-1] Goal Plan of Care Note [code = 92478-3] Goal Plan of Care Note [code = 97825-4] Goal Plan of Care Note [code = 46904-6] Goal Plan of Care Note [code = 58572-7] Goal Plan of Care Note [code = 75814-7] Goal Plan of Care Note [code = 66375-2] Goal Plan of Care Note [code = 35236-7] Goal Plan of Care Note [code = 76680-1] Goal Plan of Care Note [code = 95728-8] Goal Plan of Care Note [code = 73832-7] Goal Plan of Care Note [code = 47084-5] Goal Plan of Care Note [code = 25636-0] Goal Plan of Care Note [code = 26185-9] Goal Plan of Care Note [code = 95590-0] Goal Plan of Care Note [code = 25827-4] Goal Plan of Care Note [code = 97775-6] Goal Plan of Care Note [code = 70748-5] Goal Plan of Care Note [code = 27401-6] Goal Plan of Care Note [code = 21561-6] Goal Plan of Care Note [code = 56452-4] Goal Plan of Care Note [code = 45951-2] Goal Plan of Care Note [code = 09452-9] Goal Plan of Care Note [code = 93916-0] Goal Plan of Care Note [code = 54397-6] Goal Plan of Care Note [code = 76140-2] Goal Plan of Care Note [code = 70534-8] Goal Plan of Care Note [code = 78571-5] Goal Plan of Care Note [code = 45130-2] Goal Plan of Care Note [code = 05889-5] Goal Plan of Care Note [code = 35028-5] Goal Plan of Care Note [code = 41074-6] Goal Plan of Care Note [code = 97565-0] Goal Plan of Care Note [code = 83602-4] Goal Plan of Care Note [code = 22103-2] Goal Plan of Care Note [code = 33401-7] Goal Plan of Care Note [code = 90543-8] Goal Plan of Care Note [code = 31046-4] Goal Plan of Care Note [code = 80770-6] Goal Plan of Care Note [code = 66633-8] Goal Plan of Care Note [code = 55888-1] Goal Plan of Care Note [code = 77648-7] Goal Plan of Care Note [code = 68005-7] Goal Plan of Care Note [code = 16556-0] Goal Plan of Care Note [code = 49813-8] Goal Plan of Care Note [code = 05281-7] Goal Plan of Care Note [code = 10624-8] Goal Plan of Care Note [code = 89313-0] Goal Plan of Care Note [code = 84771-1] Goal Plan of Care Note [code = 61572-1] Goal Plan of Care Note [code = 15366-0] Goal Plan of Care Note [code = 90344-8] Goal Plan of Care Note [code = 30674-9] Goal Plan of Care Note [code = 40484-6] Goal Plan of Care Note [code = 84975-9] Goal Plan of Care Note [code = 16762-8] Goal Plan of Care Note [code = 39821-7] Goal Plan of Care Note [code = 59010-4] Goal Plan of Care Note [code = 34089-8] Goal Plan of Care Note [code = 11753-8] Goal Plan of Care Note [code = 72243-8] Goal Plan of Care Note [code = 44663-8] Goal Plan of Care Note [code = 84072-6] Goal Plan of Care Note [code = 17247-2] Goal Plan of Care Note [code = 74473-8] Goal Plan of Care Note [code = 14277-4] Goal Plan of Care Note [code = 88174-0] Goal Plan of Care Note [code = 98659-3] Goal Plan of Care Note [code = 78985-1] Goal Plan of Care Note [code = 55760-8] Goal Plan of Care Note [code = 75213-5] Goal Plan of Care Note [code = 11466-0] Goal Plan of Care Note [code = 12157-5] Goal Plan of Care Note [code = 40558-4] Goal Plan of Care Note [code = 52766-4] Goal Plan of Care Note [code = 08680-2] Goal Plan of Care Note [code = 43322-7] Goal Plan of Care Note [code = 88228-8] Goal Plan of Care Note [code = 60595-3] Goal Plan of Care Note [code = 15910-0] Goal Plan of Care Note [code = 47605-5] Goal Plan of Care Note [code = 35564-4] Goal Plan of Care Note [code = 74802-7] Goal Plan of Care Note [code = 84455-4] Goal Plan of Care Note [code = 61598-1] Goal Plan of Care Note [code = 50715-3] Goal Plan of Care Note [code = 00422-5] Goal Plan of Care Note [code = 01596-7] Goal Plan of Care Note [code = 37677-3] Goal Plan of Care Note [code = 55980-8] Goal Plan of Care Note [code = 86747-6] Goal Plan of Care Note [code = 15817-2] Goal Plan of Care Note [code = 32876-7] Goal Plan of Care Note [code = 63142-7] Goal Plan of Care Note [code = 86051-0] Goal Plan of Care Note [code = 51604-9] Goal Plan of Care Note [code = 31184-2] Goal Plan of Care Note [code = 93801-9] Goal Plan of Care Note [code = 54930-5] Goal Plan of Care Note [code = 62116-4] Goal Plan of Care Note [code = 75451-0] Goal Plan of Care Note [code = 77139-4] Goal Plan of Care Note [code = 33897-3] Goal Plan of Care Note [code = 53270-2] Goal Plan of Care Note [code = 17734-9] Goal Plan of Care Note [code = 13605-0] Goal Plan of Care Note [code = 82424-2] Goal Plan of Care Note [code = 57339-9] Goal Plan of Care Note [code = 17012-1] Goal Plan of Care Note [code = 11123-0] Goal Plan of Care Note [code = 85739-8] Goal Plan of Care Note [code = 43292-3] Goal Plan of Care Note [code = 98048-2] Goal Plan of Care Note [code = 11957-4] Goal Plan of Care Note [code = 18105-9] Goal Plan of Care Note [code = 24527-8] Goal Plan of Care Note [code = 10408-1] Goal Plan of Care Note [code = 72894-3] Goal Plan of Care Note [code = 87795-8] Goal Plan of Care Note [code = 62101-3] Goal Plan of Care Note [code = 18927-8] Goal Plan of Care Note [code = 25320-0] Goal Plan of Care Note [code = 83491-2] Goal Plan of Care Note [code = 46207-4] Goal Plan of Care Note [code = 61433-6] Goal Plan of Care Note [code = 56023-8] Goal Plan of Care Note [code = 35990-1] Goal Plan of Care Note [code = 18403-3] Goal Plan of Care Note [code = 61681-2] Goal Plan of Care Note [code = 00832-7] Goal Plan of Care Note [code = 56467-6] Goal Plan of Care Note [code = 34858-5] Goal Plan of Care Note [code = 02996-7] Goal Plan of Care Note [code = 98393-1] Goal Plan of Care Note [code = 14888-9] Goal Plan of Care Note [code = 14846-4] Goal Plan of Care Note [code = 16278-7] Goal Plan of Care Note [code = 49853-1] Goal Plan of Care Note [code = 56165-8] Goal Plan of Care Note [code = 21670-0] Goal Plan of Care Note [code = 11746-1] Goal Plan of Care Note [code = 03272-8] Goal Plan of Care Note [code = 35568-9] Goal Plan of Care Note [code = 53708-5] Goal Plan of Care Note [code = 76226-8] Goal Plan of Care Note [code = 12236-4] Goal Plan of Care Note [code = 60857-4] Goal Plan of Care Note [code = 63508-0] Goal Plan of Care Note [code = 84276-5] Goal Plan of Care Note [code = 06263-4] Goal Plan of Care Note [code = 29320-9] Goal Plan of Care Note [code = 49775-7] Goal Plan of Care Note [code = 70053-9] Goal Plan of Care Note [code = 09025-9] Goal Plan of Care Note [code = 59027-6] Goal Plan of Care Note [code = 73058-4] Goal Plan of Care Note [code = 35981-8] Goal Plan of Care Note [code = 81410-2] Goal Plan of Care Note [code = 27883-7] Goal Plan of Care Note [code = 76362-6] Goal Plan of Care Note [code = 10236-6] Goal Plan of Care Note [code = 92516-9] Goal Plan of Care Note [code = 94762-5] Goal Plan of Care Note [code = 94659-3] Goal Plan of Care Note [code = 95388-4] Goal Plan of Care Note [code = 21744-5] Goal Plan of Care Note [code = 91430-3] Goal Plan of Care Note [code = 51571-1] Goal Plan of Care Note [code = 12819-4] Goal Plan of Care Note [code = 07634-6] Goal Plan of Care Note [code = 87583-5] Goal Plan of Care Note [code = 58650-5] Goal Plan of Care Note [code = 96090-9] Goal Plan of Care Note [code = 77097-4] Goal Plan of Care Note [code = 37811-7] Goal Plan of Care Note [code = 35165-0] Goal Plan of Care Note [code = 63889-7] Goal Plan of Care Note [code = 64355-9] Goal Plan of Care Note [code = 54182-1] Goal Plan of Care Note [code = 62402-2] Goal Plan of Care Note [code = 97631-7] Goal Plan of Care Note [code = 83885-3] Goal Plan of Care Note [code = 03813-0] Goal Plan of Care Note [code = 54506-8] Goal Plan of Care Note [code = 40400-8] Goal Plan of Care Note [code = 38837-6] Goal Plan of Care Note [code = 39951-9] Goal Plan of Care Note [code = 49611-9] Goal Plan of Care Note [code = 52814-4] Encounters Start End Encounter Admission Attending Care Care Encounter Source Date/Time Date/Time Type Type Clinicians Facility Department ID 2023-10-12 [facility]patient [facility], [facility] ST[facility] [id number] Common 09:51:00 [facility] [id number] [facility] 2023-09-26 Outpatient [facility], STLMLC STLMLC [id number] Common 08:24:00 [facility] [address] [facility] 2023-09-25 Outpatient [facility], STLMLC STLMLC [id number] Common 14:28:00 [facility] [id number] [facility] 2023-06-25 Outpatient STLMLC STLMLC [id number] Common 16:05:00 [id number] [facility] 2023-06-21 Outpatient STLMLC STLMLC [id number] Common 14:33:00 [id number] [facility] 2023-03-15 Outpatient STLMLC STLMLC [id number] Common 10:34:00 59546 [facility] 2021-12-21 [facility] [id number] Common 11:45:05 86958 [facility] 2021-12-21 [facility] [id number] Common 11:44:56 [id number] [facility] 2023-10-12 2023-10-12 Outpatient GC_GCBZW_Ka PRIV PRIV [id number] [facility] 00:00:00 00:00:00 diyala_S [id number] Medic al 2023-06-28 2023-06-28 Outpatient SUZI MEEKS [id number] Suzi 09:30:00 09:30:00 NATO jsohua 2023-03-08 2023-03-08 Outpatient SFA SFA [id number] 023 [place] 14:32:50 14:32:[address] [facility] 2023-02-17 2023-02-17 Outpatient SFA SFA 51453-9 023 [place] 12:42:23 12:42:[address] [facility] 2023-01-22 2023-01-22 Outpatient SFA SFA [id number] 023 [place] 14:20:56 14:20:[address] [facility] 2023-01-19 2023-01-19 Outpatient SFA SFA [id number] 023 [place] 10:30:32 10:30:[address] [facility] 2023-01-06 2023-01-06 Outpatient SFA SFA [id number] 023 [place] 12:26:49 12:26:[address] [facility] 2022-12-25 2022-12-25 Outpatient SFA SFA 65085-1 023 [place] 15:57:46 15:57:[address] [facility] 2022-12-19 2022-12-19 Outpatient SFA SFA 47909-4 023 [place] 17:07:18 17:07:[address] [facility] 2022-12-18 2022-12-18 Outpatient SFA SFA 72448-6 023 [place] 16:52:50 16:52:[address] [facility] 2022-12-18 2022-12-18 Outpatient j3079t2e- [id number] a9 538g3g-a 00:00:00 00:00:00 Visit fd6x-0462 b7z-9978-7 -7p95-kq2 w11-qy1p09 s902uhy69 6efb87 2022-11-24 2022-11-24 Outpatient SFA SFA 50159-6 022 [place] 13:12:34 13:12:34 1230 F [facility]ine 2022-11-24 2022-11-24 Outpatient 8m6u0g76- [id number] 0f 3y6w94-1 00:00:00 00:00:00 Visit 3eee-4766 eee-4766-b -h6pk-7b2 2df-1b8c51 r16k35288 d21212 2022-10-17 2022-10-17 Outpatient SFA SFA 31947-2 [place] 10:39:17 10:39:17 1122 F [facility] 2022-10-17 2022-10-17 Outpatient [id number]- [id number] 268a05-4 00:00:00 00:00:00 Visit 666d-4f5b 66d-4f5b-a -q1ce-12w 1cd-93ef67 q72h54s45 f38e31 2022-10-16 2022-10-16 Outpatient SFA SFA 33961-4 022 [place] 11:47:24 11:47:24 1121 F [facility] 2022-10-16 2022-10-16 Outpatient 6nwz948r- [id number] 4c cr341e-7 00:00:00 00:00:00 Visit 0y03-849h j63-092g-k -jj7h-bqc z7b-kox6bx 2lc064v4s 469c5d 2022-06-27 2022-06-27 Outpatient 02zrfu84- [id number] phkg69-k 00:00:00 00:00:00 Visit j193-802x 062-461b-8 -8r62-20s c98-33v34j 30d3j131g 5u453h 2022-05-22 2022-05-22 Outpatient 753b5ic6- [id number] 7f6ho5-6 00:00:00 00:00:00 Visit 6e30-82z9 a40-49o9-7 -947d-464 47d-464aa0 bf29c2s5j 4a8b5a 2021-02-22 2021-02-22 Orders Doctor RAHAT 1.2.840.114 [id number] [facility] 00:00:00 00:00:00 Only Unassigned, KIRA 350.1.13.10 [facility] 4.2.7.2.686 [place] [id number] [address] 2021-01-25 2021-01-25 Orders Doctor RAHAT 1.2.840.114 [id number] [facility] 00:00:00 00:00:00 Only Unassigned, KIRA 350.1.13.10 [facility] 4.2.7.2.686 [place] [id number] [address] 2020 2020 [id number] Common 14:00:00 14:00:00 [facility] 2020-05-24 2020-05-24 Telephone ODeb, [facility] 1.2.840.114 [id number] Univers 00:00:00 00:00:00 Dolores [facility] 350.1.13.10 [id number] [address] 2020-05-24 2020-05-24 Telephone ODeb, [facility] 1.2.840.114 [id number] 00:00:00 00:00:00 [facility] 350.1.13.10 CLINICS 4.2.7.2.686 [id number] [facility] 2020-04-22 2020-04-22 Telephone O'Shakila, [facility] 1.2.840.114 [id number] Univers 00:00:00 00:00:00 [place]ores Y [facility] 350.1.13.10 [id number] [address] 2020-04-22 2020-04-22 Telephone OAbbyShakila, [facility] 1.2.840.114 [id number] 00:00:00 00:00:00 [place] 350.1.13.10 CLINICS 4.2.7.2.686 [id number] [facility] 2020-04-16 2020-04-16 Outpatient R DANG, [facility] 1026 [id number] [facility] 15:00:00 15:00:00 DOLORES ity of [facility] 2020-04-16 2020-04-16 Telemedici Dang, [facility] 1.2.840.11 [id number] [facility] 07:41:39 08:11:39 ne Visit [facility] 350.1.13.10 [place] [id number] [address] 2020-04-16 2020-04-16 Telemedici Dang, [facility] 1.2.840.11 [id number] 07:41:39 08:11:39 ne Visit [facility] 350.1.13.10 CLINICS 4.2.7.2.686 [id number] [facility] 2020-02-16 2020-02-16 Orders Doctor RAHAT 1.2.840.114 [id number] Univers 00:00:00 00:00:00 Only Unassigned, KIRA 350.1.13.10 [facility] 4.2.7.2.686 [place] [id number] [address] 2020-02-16 2020-02-16 Orders Doctor RAHAT 1.2.840.114 [id number] 00:00:00 00:00:00 Only Unassigned, KIRA 350.1.13.10 [facility] 4.2.7.2.686 [id number] 009 2020-01-29 2020-01-29 Orders Doctor RAHAT 1.2.840.114 [id number] Univers 00:00:00 00:00:00 Only Unassigned, KIRA 350.1.13.10 [facility] 4.2.7.2.686 [place] [id number] [address] 2020-01-29 2020-01-29 Orders Doctor RAHAT 1.2.840.114 [id number] 00:00:00 00:00:00 Only Unassigned, KIRA 350.1.13.10 [facility] 4.2.7.2.686 [id number] 009 2020-01-27 2020-01-27 Telephone O'Shakila, [facility] 1.2.840.114 [id number] Univers 00:00:00 00:00:00 Dolores Y [facility] 350.1.13.10 [id number] [address] 2020-01-27 2020-01-27 Telephone O'Shakila, [facility] 1.2.840.114 [id number] 00:00:00 00:00:00 [place] [facility] 350.1.13.10 CLINICS 4.2.7.2.686 [id number] [facility] 2020-01-22 2020-01-22 Telephone O'Shakila, [facility] 1.2.840.114 [id number] Univers 00:00:00 00:00:00 [place] [facility] 350.1.13.10 [place] [id number] [address] 2020-01-22 2020-01-22 Telephone O'Shakila, [facility] 1.2.840.114 [id number] 00:00:00 00:00:00 [place] 350.1.13.10 CLINICS 4.2.7.2.686 [id number] [facility] 2020-01-19 2020-01-19 Orders Doctor RAHAT 1.2.840.114 [id number] Univers 00:00:00 00:00:00 Only Unassigned, KIRA 350.1.13.10 [facility] 4.2.7.2.686 [place] [id number] [address] 2020-01-14 2020-01-14 Telephone O'Shakila, [facility] 1.2.840.114 [id number] Univers 00:00:00 00:00:00 [place] Y HE[facility] 350.1.13.10 [place] 157.[place] [address] 2020-01-12 2020-01-12 Telephone O'Shakila, [facility] 1.2.840.114 [id number] Univers 00:00:00 00:00:00 [place] [facility] 350.1.13.10 [place] [id number] [address] 2019-12-30 2019-12-30 Telephone ODeb, [facility] 12.840.114 [id number] Univers 00:00:00 00:00:00 [place] [facility] 350.1.13.10 [place] [id number] [address] 2019-12-23 2019-12-23 Telephone OJulienShakila, [facility] 12.840.114 [id number] Univers 00:00:00 00:00:00 [place] [facility] 350.1.13.10 [place] [id number] [address] 2019-08-06 2019-08-06 Orders Doctor RAHAT 1.2.840.114 [id number] Univers 00:00:00 00:00:00 Only Unassigned, KIRA 350.1.13.10 [place] [address]686 [place] [id number] [address] 2019-07-30 2019-07-30 [facility] 1.2.840.114 [id number] Univers 00:00:00 00:00:00 [place] [facility] HE[facility] 350.1.13.10 [id number] [address] Results Test Description Test Time Test [...] OF TISSUE PIECES: 1SUBMITTED IN C ASSETTE(S): u7RBFPRP: FormalinCOMMENT S:Entirely submitted intact. B) SPEC IMEN LABELED: EndocervixSIZE/ WEIGHT: 1.3x1.2x0.2 cm AggregateSPECIM EN COLOR: TanNUMBER OF TISSUE PIECES: multipleSUBMITTED IN CASSETTE(S): x1 MEDIUM: FormalinCOMMENT S:Filtered and entirely submitted. PATHOLOGIST: (test code = 8250) (NOTE) Jerardo Hinton M.D. Board Certified in Anatomic and inicalPathology, [place] [employer] of Pathol [facility] [place] Specimens processed and interpreted at [facility], [address] [place] [address] 4, , CLIA: [id number] 3 CPT: (test code = 8400) (NOTE) 8830 5x2 [facility] has important pathology staff changes e ffective 01/24/2023. New pathology s taff will provide uninterrupted, excellent patient care and clinical consul tation. See URL: [email or web address]. UNLESS OTHERWISE INDIC ATED, ALL TESTING PERFORMED [facility], [facility]. [address] [place] [address] DIRECTOR: JERARDO HINTON M.D. CLIA NUMBER [id number] [place] [id number] PAP TEST, THINPREP, [id number] 06:23:50 Test Item Value Reference Range Interpretation Comments SOURCE: (test Cervical/Endoce code = 8001) rvical SLIDES: (test 1 code = 8011) LMP: (test code SEE NOTE POST MENOPA USAL = 8021) SPECIMEN (NOTE) Satisfactory f or ADEQUACY: (test evaluation. code = 93228) Endocervical cells/transform ation zone component present. INTERPRETATION: NILM/NO EPITH. (test code = ABNORMALITY;SEE 31686) BELOW -------- - NEGATIVE FOR INTRAEPITHELIAL LESION OR MALIGNANCY ( NILM) -------- -------- -------- ---- OTHER COMMENTS: (NOTE) Shift in makenna ra (test code = suggestive of b acterial 8081) vaginosis. BLUE LINE TRIMMER Royal Rivas : (test code = 8101) QC TECHNOLOGIST: ADRIAN Diaz (test code = LY,CT(ASCP) 8111) LOCATION: (test (NOTE) Specimens pr ocessed and code = 77277) interpreted at [facility] [address] [place] [address] [phone], Phone: , CLIA: [id number] CPT: (test code (NOTE) 97170 UNLESS OTHERWISE = 8140) INDICATED, COMP UTER [...] avping hart as applicable. VAGINAL PATHOGENS DNA [id number] 16:05:17 Test Item Value Reference Range Interpretation [...] and Trichomonas vag inalis nucleic acid. * [facility] has important patho logy staff changes effecti ve 01/24/2023. New pathology staff will provide uninterrupted, excellent patient care an d clinical consultation. S ee URL: [email or web address]. UNLESS OTHE RWISE INDICATED, ALL TESTING PERFORMED AT [facility] [employer] [address] [place] [address] CLIA: [id number], CAP: [id number] CT/NG, NAAT, [id number] 14:18:46 Test Item Value Reference Range Interpretation Comments CHLAMYDIA, NAAT, NEGATIVE NEGATIVE A negative result does THINPREP (test code not excl ude low level = 01146) infection, specimensamplin g error, or collection erro r. Testing is performed wi the [employer] systems usingre al-time Polymerase Cesar n Reaction (PCR) method. GONORRHEA, NAAT, NEGATIVE NEGATIVE A negative result does THINPREP (test code not excl ude low level = 58293) infection, specimensamplin g error, or collection erro r. Testing is performed wi th the [employer] systems usingre al-time Polymerase Cesar n Reaction (PCR) method. HPV HIGH RISK WITH GENOTYPE, [id number] 14:07:23 Test Item Value Reference Range Interpretation Comments HPV HIGH RISK INTERP POSITIVE NEGATIVE A (test code = 26298) HPV 16 (test code = POSITIVE A 02943) HPV 18 (test code = NEGATIVE 12154) HPV, HR, OTHER NEGATIVE Testing meth odology is GENOTYPES (test code real-ti me PCR utilizing = 23594) hydrolysis prob es with the Natalie Sally [...] of infection or sp ecimen sampling error. [facility] has important p athology staff changes e ffective 01/24/2023. New pathology staff will provide uninter rupted, excellent patie nt care and clinical consultation. S ee URL: [email or web address]. UNLESS OTHERWISE INDICATED, ALL TESTING PERFORMED AT [facility] [address] [place] [address] CLIA : [id number], CAP : [id number] CULTURE, [id number] 11:19:59SPECIMEN NUMBER: [id number] CULTURE, URINE SPECIMEN NUMBER: [id number] SPECIMEN COMMENT: URINE SOURCE:URINE REPORT STATUS: FINAL FINAL REPORT: 12/21/2022 NO GROWTH AFTER 36 HOURS INCUBATION UNLESS OTHERW ISE INDICATED, ALL TESTING [facility] [employer] [address] [place], [place] [id number] OPERATING COST CLERK: JERARDO HINTON M.D. CLIA NUMBER [id number] [place]. [id number]. PYLORI (BREATH)2022-04-25 13:14:53 Test Item Value Reference Range Interpretation Comments H. PYLORI (BREATH) (test code = POSITIVE NEGATIVE A 83189) H. PYLORI (BREATH)2022-04-25 00:00:00 Test Item Value Reference Range Interpretation Comments H. PYLORI (BREATH) (test code = POSITIVE 82243) H. PYLORI (BREATH)2022-04-25 00:00:00 Test Item Value Reference Range Interpretation Comments H. PYLORI (BREATH) (test code = POSITIVE 16807) H. PYLORI (BREATH)2022-04-25 00:00:00 Test Item Value Reference Range Interpretation Comments H. PYLORI (BREATH) (test code = POSITIVE 39067) H. PYLORI (BREATH)2022-04-25 00:00:00 Test Item Value Reference Range Interpretation Comments H. PYLORI (BREATH) (test code = POSITIVE 12621) H. PYLORI (BREATH)2022-04-25 00:00:00 Test Item Value Reference Range Interpretation Comments H. PYLORI (BREATH) (test code = POSITIVE 55356) H. PYLORI (BREATH)2022-04-25 00:00:00 Test Item Value Reference Range Interpretation Comments H. PYLORI (BREATH) (test code = POSITIVE 11465) H. PYLORI (BREATH)2022-04-25 00:00:00 Test Item Value Reference Range Interpretation Comments H. PYLORI (BREATH) (test code = POSITIVE 17654) H. PYLORI (BREATH)2022-04-25 00:00:00 Test Item Value Reference Range Interpretation Comments H. PYLORI (BREATH) (test code = POSITIVE 31706) H. PYLORI (BREATH)2022-04-25 00:00:00 Test Item Value Reference Range Interpretation Comments H. PYLORI (BREATH) (test code = POSITIVE 77865) H. PYLORI (BREATH)2022-04-25 00:00:00 Test Item Value Reference Range Interpretation Comments H. PYLORI (BREATH) (test code = POSITIVE 30942) H. PYLORI (BREATH)2022-04-25 00:00:00 Test Item Value Reference Range Interpretation Comments H. PYLORI (BREATH) (test code = POSITIVE 33465) UNLABELLED [id number] 06:02:48 Test Item Value Reference Range Interpretation Comments NOTE: (test code = SPECIME N RECEIVED WITHOUT 64540) PATIENT'S NAME. UNLESS OTHERWISE INDIC ATED, ALL TESTING PERFORM ED ATCLINICAL PATHOLOGY [facility], [facility]. [address] [place] [address] LABORATOR Y DIRECTOR: JERARDO RESTREPO M.D. CLIA NUMBER [id number] CAP ACCREDITATION N O. [id number] UNLABELLED SPECIMEN [ADDED]2022-04-23 00:00:00 Test Item Value Reference Range Interpretation Comments NOTE: (test code = 01144) UNLABELLED SPECIMEN [ADDED]2022-04-23 00:00:00 Test Item Value Reference Range Interpretation Comments NOTE: (test code = 29715) UNLABELLED SPECIMEN [ADDED]2022-04-23 00:00:00 Test Item Value Reference Range Interpretation Comments NOTE: (test code = 28364) UNLABELLED SPECIMEN [ADDED]2022-04-23 00:00:00 Test Item Value Reference Range Interpretation Comments NOTE: (test code = 07443) UNLABELLED SPECIMEN [ADDED]2022-04-23 00:00:00 Test Item Value Reference Range Interpretation Comments NOTE: (test code = 14557) UNLABELLED SPECIMEN [ADDED]2022-04-23 00:00:00 Test Item Value Reference Range Interpretation Comments NOTE: (test code = 40150) TSH, THIRD [id number] 05:20:11 Test Item Value Reference Range Interpretation Comments TSH, THIRD 3.150 UIU/ML 0.400-4.100 UNLESS OTHERWI SE GENERATION (test INDICATED, ALL TESTING code = 2821) PERFORMED [facility], [facility]. [address] [place] [address] [facility] DIRECTOR: JERARDO HINTON M.D. CLIA NUMBER [id number] CAP ACCREDITATION N O. [id number] 00:00:00 Test Item Value Reference Range Interpretation Comments TSH, THIRD GENERATION (test code 3.150 UIU/ML = 2821) [id number] 00:00:00 Test Item Value Reference Range Interpretation Comments TSH, THIRD GENERATION (test code 3.150 UIU/ML = 2821) [id number] 00:00:00 Test Item Value Reference Range Interpretation Comments TSH, THIRD GENERATION (test code 3.150 UIU/ML = 2821) [id number] 00:00:00 Test Item Value Reference Range Interpretation Comments TSH, THIRD GENERATION (test code 3.150 UIU/ML = 2821) [id number] 00:00:00 Test Item Value Reference Range Interpretation Comments TSH, THIRD GENERATION (test code 3.150 UIU/ML = 2821) [id number] 00:00:00 Test Item Value Reference Range Interpretation Comments TSH, THIRD GENERATION (test code 3.150 UIU/ML = 2821) [id number] 00:00:00 Test Item Value Reference Range Interpretation Comments TSH, THIRD GENERATION (test code 3.150 UIU/ML = 2821) [id number] 00:00:00 Test Item Value Reference Range Interpretation Comments TSH, THIRD GENERATION (test code 3.150 UIU/ML = 2821) [id number] 00:00:00 Test Item Value Reference Range Interpretation Comments TSH, THIRD GENERATION (test code 3.150 UIU/ML = 2821) [id number] 00:00:00 Test Item Value Reference Range Interpretation Comments TSH, THIRD GENERATION (test code 3.150 UIU/ML = 2821) [id number] 00:00:00 Test Item Value Reference Range Interpretation Comments TSH, THIRD GENERATION (test code 3.150 UIU/ML = 2821) [id number] 00:00:00 Test Item Value Reference Range Interpretation Comments TSH, THIRD GENERATION (test code 3.150 UIU/ML = 2821) [id number] 00:00:00 Test Item Value Reference Range Interpretation Comments TSH, THIRD GENERATION (test code 3.150 UIU/ML = 2821) [id number] 00:00:00 Test Item Value Reference Range Interpretation Comments TSH, THIRD GENERATION (test code 3.150 UIU/ML = 2821) [id number] 00:00:00 Test Item Value Reference Range Interpretation Comments TSH, THIRD GENERATION (test code 3.150 UIU/ML = 2821) [id number] 00:00:00 Test Item Value Reference Range Interpretation Comments TSH, THIRD GENERATION (test code 3.150 UIU/ML = 2821) [id number] 00:00:00 Test Item Value Reference Range Interpretation Comments TSH, THIRD GENERATION (test code 3.150 UIU/ML = 2821) SARS-CoV-2 (COVID-19), RT-PCR/[id number] 17:22:58 Test Item Value Reference Interpretation Comments Range SARS-CoV-2 NEGATIVE SEE NOTE SARS-CoV-2 RNA NOT INTERPRETATION DETECTEDNegat praneeth (test code = 37215) results do not preclude SARS-C oV-2 infection [...] (test code = [place]OP[place]: [place] [address]) Natalie Sally [place] l-Time RT-PCR. The exp ected result or [...] provided by met hod given in report:https:// www.[employer].com/clinic ians/cl ient-communicat ions/ Alternatively, see downloadable PD F fact sheet at:https://www. Anews/COVID-19-R T-PCR UNLESS OTHERWIS E INDICATED, ALL TESTING PERFORMED [facility], [facility]. [address] [place] [id number] [place] [address] DIRECTOR: JERARDO HINTON M.D. CLIA NUMBER [id number] CAP ACCREDITATION N O. [id number] SARS-CoV-2 (COVID-19) by RT-PCR (HIGH RISK)2021-12-04 00:00:00 Test Item Value Reference Range Interpretation Comments SARS-CoV-2 INTERPRETATION NEGATIVE (test code = 85996) SOURCE (test code = 67586) NASOPHARYNGEAL SARS-CoV-2 (COVID-19) by RT-PCR (HIGH RISK)2021-12-04 00:00:00 Test Item Value Reference Range Interpretation Comments SARS-CoV-2 INTERPRETATION NEGATIVE (test code = 29364) SOURCE (test code = 92395) NASOPHARYNGEAL SARS-CoV-2 (COVID-19) by RT-PCR (HIGH RISK)2021-12-04 00:00:00 Test Item Value Reference Range Interpretation Comments SARS-CoV-2 INTERPRETATION NEGATIVE (test code = 57389) SOURCE (test code = 63377) NASOPHARYNGEAL SARS-CoV-2 (COVID-19) by RT-PCR (HIGH RISK)2021-12-04 00:00:00 Test Item Value Reference Range Interpretation Comments SARS-CoV-2 INTERPRETATION NEGATIVE (test code = 04227) SOURCE (test code = 26273) NASOPHARYNGEAL SARS-CoV-2 (COVID-19) by RT-PCR (HIGH RISK)2021-12-04 00:00:00 Test Item Value Reference Range Interpretation Comments SARS-CoV-2 INTERPRETATION NEGATIVE (test code = 26370) SOURCE (test code = 57552) NASOPHARYNGEAL SARS-CoV-2 (COVID-19) by RT-PCR (HIGH RISK)2021-12-04 00:00:00 Test Item Value Reference Range Interpretation Comments SARS-CoV-2 INTERPRETATION NEGATIVE (test code = 63553) SOURCE (test code = 73174) NASOPHARYNGEAL SARS-CoV-2 (COVID-19) by RT-PCR (HIGH RISK)2021-12-04 00:00:00 Test Item Value Reference Range Interpretation Comments SARS-CoV-2 INTERPRETATION NEGATIVE (test code = 73278) SOURCE (test code = 04128) NASOPHARYNGEAL SARS-CoV-2 (COVID-19) by RT-PCR (HIGH RISK)2021-12-04 00:00:00 Test Item Value Reference Range Interpretation Comments SARS-CoV-2 INTERPRETATION NEGATIVE (test code = 81274) SOURCE (test code = 26137) NASOPHARYNGEAL SARS-CoV-2 (COVID-19) by RT-PCR (HIGH RISK)2021-12-04 00:00:00 Test Item Value Reference Range Interpretation Comments SARS-CoV-2 INTERPRETATION NEGATIVE (test code = 88359) SOURCE (test code = 24051) NASOPHARYNGEAL SARS-CoV-2 (COVID-19) by RT-PCR (HIGH RISK)2021-12-04 00:00:00 Test Item Value Reference Range Interpretation Comments SARS-CoV-2 INTERPRETATION NEGATIVE (test code = 38109) SOURCE (test code = 23990) NASOPHARYNGEAL SARS-CoV-2 (COVID-19) by RT-PCR (HIGH RISK)2021-12-04 00:00:00 Test Item Value Reference Range Interpretation Comments SARS-CoV-2 INTERPRETATION NEGATIVE (test code = 32119) SOURCE (test code = 37898) NASOPHARYNGEAL SCR MAMM BILATERAL SARAH CAD [id number] 10:53:17 Name: Dionne : 1965 Sex: F* - SCR MAMM BILATERAL SARHA CAD DIGITALBILATERAL DIGITAL SCREENING MAMMOGRAM 3D/2D WITH CAD: 10/11/2021LINICAL: Asymptomatic. Digital breast tomosynthesis was performed in addition to routine CC and MLO views. Current mammographic images were evaluated by [employer] CAD (computer-aided detection) software. Comparison is made to exams dated 06/28/2020 mammogram, 12/20/2018 mammogram - [facility], and 02/02/2012 mammogram- [facility]. The tissue of both breasts is heterogeneously dense. This may lower the sensitivity of mammography. No suspicious mass, architectural distortion, malignant type calcification, or lymph node abnormality detected. Breast architecture is stable compared to prior exams.IMPRESSION: NEGATIVEThere is no mammographic evidence of malignancy. Resume annual screening mammography in one year. Scotty Luu/penrad:10/13/2021 10:53:17 Production Control Planner: Merary Clark MM, [facility] sent: BIRADS 1-2 Normal Mammogram BI-RADS: 1 Negative SARS-CoV-2 (COVID-19) by RT-PCR (HIGH RISK)2021-05-06 00:00:00 Test Item Value Reference Range Interpretation Comments SARS-CoV-2 INTERPRETATION (test NEGATIVE code = 14901) SOURCE (test code = 26409) NOT SPECIFIED SARS-CoV-2 (COVID-19) by RT-PCR (HIGH RISK)2021-05-06 00:00:00 Test Item Value Reference Range Interpretation Comments SARS-CoV-2 INTERPRETATION (test NEGATIVE code = 33718) SOURCE (test code = 16971) NOT SPECIFIED SARS-CoV-2 (COVID-19) by RT-PCR (HIGH RISK)2021-05-06 00:00:00 Test Item Value Reference Range Interpretation Comments SARS-CoV-2 INTERPRETATION (test NEGATIVE code = 03510) SOURCE (test code = 48832) NOT SPECIFIED SARS-CoV-2 (COVID-19) by RT-PCR (HIGH RISK)2021-05-06 00:00:00 Test Item Value Reference Range Interpretation Comments SARS-CoV-2 INTERPRETATION (test NEGATIVE code = 95659) SOURCE (test code = 62228) NOT SPECIFIED SARS-CoV-2 (COVID-19) by RT-PCR (HIGH RISK)2021-05-06 00:00:00 Test Item Value Reference Range Interpretation Comments SARS-CoV-2 INTERPRETATION (test NEGATIVE code = 16470) SOURCE (test code = 19874) NOT SPECIFIED SARS-CoV-2 (COVID-19) by RT-PCR (HIGH RISK)2021-05-06 00:00:00 Test Item Value Reference Range Interpretation Comments SARS-CoV-2 INTERPRETATION (test NEGATIVE code = 61317) SOURCE (test code = 63849) NOT SPECIFIED SARS-CoV-2 (COVID-19) by RT-PCR (HIGH RISK)2021-05-06 00:00:00 Test Item Value Reference Range Interpretation Comments SARS-CoV-2 INTERPRETATION (test NEGATIVE code = 31090) SOURCE (test code = 08612) NOT SPECIFIED SARS-CoV-2 (COVID-19) by RT-PCR (HIGH RISK)2021-05-06 00:00:00 Test Item Value Reference Range Interpretation Comments SARS-CoV-2 INTERPRETATION (test NEGATIVE code = 16323) SOURCE (test code = 76607) NOT SPECIFIED SARS-CoV-2 (COVID-19) by RT-PCR (HIGH RISK)2021-05-06 00:00:00 Test Item Value Reference Range Interpretation Comments SARS-CoV-2 INTERPRETATION (test NEGATIVE code = 53853) SOURCE (test code = 35704) NOT SPECIFIED SARS-CoV-2 (COVID-19) by RT-PCR (HIGH RISK)2021-05-06 00:00:00 Test Item Value Reference Range Interpretation Comments SARS-CoV-2 INTERPRETATION (test NEGATIVE code = 96958) SOURCE (test code = 27790) NOT SPECIFIED SARS-CoV-2 (COVID-19) by RT-PCR (HIGH RISK)2021-05-06 00:00:00 Test Item Value Reference Range Interpretation Comments SARS-CoV-2 INTERPRETATION (test NEGATIVE code = 41390) SOURCE (test code = 59385) NOT SPECIFIED CBC W/AUTO [id number] 00:00:00 Test Item Value Reference Range Interpretation [...] NUCLEATED RBCS (test code = 0.00 K/UL 14448) HEMOGLOBIN [id number] 00:00:00 Test Item Value Reference Range Interpretation Comments HEMOGLOBIN A1c (test code = 29155) 5.2 % HEMOGLOBIN [id number] 00:00:00 Test Item Value Reference Range Interpretation Comments HEMOGLOBIN A1c (test code = 05334) 5.2 % LIPID [id number] 00:00:00 Test Item Value Reference Range Interpretation Comments CHOLESTEROL (test code = 2210) 151 MG/DL TRIGLYCERIDES (test code = 2232) 286 MG/DL HDL CHOLESTEROL (test code = 2220) 27 MG/DL CALC LDL CHOL (test code = 2237) 86 MG/DL RISK RATIO LDL/HDL (test code = 3.19 RATIO 2238) COMPREHENSIVE METABOLIC [id number] 00:00:00 Test Item Value Reference Range Interpretation Comments GLUCOSE (test code = 2217) 102 MG/DL BUN (test code = 2208) 10 MG/DL CREATININE (test code = 2214) 0.80 MG/DL eGFR AMER. (test code 96 ML/MIN/1.73 = 93183) eGFR NON- AMER. (test 83 ML/MIN/1.73 code = 77408) CALC BUN/CREAT (test code = 13 RATIO [...] ALT (test code = 2219) 14 U/L [id number] 00:00:00 Test Item Value Reference Range Interpretation Comments TSH, THIRD GENERATION (test code 1.540 UIU/ML = 2821) [id number] 00:00:00 Test Item Value Reference Range Interpretation Comments TSH, THIRD GENERATION (test code 1.540 UIU/ML = 2821) VITAMIN D, 25 [id number] 00:00:00 Test Item Value Reference Range Interpretation Comments VITAMIN D, 25 OH (test code = 4958) 20 NG/ML CBC W/AUTO [id number] 00:00:00 Test Item Value Reference Range Interpretation [...] NUCLEATED RBCS (test code = 0.00 K/UL 69618) CBC W/AUTO [id number] 00:00:00 Test Item Value Reference Range Interpretation [...] NUCLEATED RBCS (test code = 0.00 K/UL 62322) CBC W/AUTO [id number] 00:00:00 Test Item Value Reference Range Interpretation [...] NUCLEATED RBCS (test code = 0.00 K/UL 96844) HEMOGLOBIN [id number] 00:00:00 Test Item Value Reference Range Interpretation Comments HEMOGLOBIN A1c (test code = 89932) 5.2 % HEMOGLOBIN [id number] 00:00:00 Test Item Value Reference Range Interpretation Comments HEMOGLOBIN A1c (test code = 48610) 5.2 % HEMOGLOBIN [id number] 00:00:00 Test Item Value Reference Range Interpretation Comments HEMOGLOBIN A1c (test code = 02016) 5.2 % LIPID [id number] 00:00:00 Test Item Value Reference Range Interpretation Comments CHOLESTEROL (test code = 2210) 151 MG/DL TRIGLYCERIDES (test code = 2232) 286 MG/DL HDL CHOLESTEROL (test code = 2220) 27 MG/DL CALC LDL CHOL (test code = 2237) 86 MG/DL RISK RATIO LDL/HDL (test code = 3.19 RATIO 2238) LIPID [id number] 00:00:00 Test Item Value Reference Range Interpretation Comments CHOLESTEROL (test code = 2210) 151 MG/DL TRIGLYCERIDES (test code = 2232) 286 MG/DL HDL CHOLESTEROL (test code = 2220) 27 MG/DL CALC LDL CHOL (test code = 2237) 86 MG/DL RISK RATIO LDL/HDL (test code = 3.19 RATIO 2238) COMPREHENSIVE METABOLIC [id number] 00:00:00 Test Item Value Reference Range Interpretation Comments GLUCOSE (test code = 2217) 102 MG/DL BUN (test code = 2208) 10 MG/DL CREATININE (test code = 2214) 0.80 MG/DL eGFR AMER. (test code 96 ML/MIN/1.73 = 67052) eGFR NON- AMER. (test 83 ML/MIN/1.73 code = 60429) CALC BUN/CREAT (test code = 13 RATIO [...] code = 2219) 14 U/L COMPREHENSIVE METABOLIC [id number] 00:00:00 Test Item Value Reference Range Interpretation Comments GLUCOSE (test code = 2217) 102 MG/DL BUN (test code = 2208) 10 MG/DL CREATININE (test code = 2214) 0.80 MG/DL eGFR AMER. (test code 96 ML/MIN/1.73 = 45677) eGFR NON- AMER. (test 83 ML/MIN/1.73 code = 79171) CALC BUN/CREAT (test code = 13 RATIO [...] A/G RATIO (test code = 1.6 RATIO 4) BILIRUBIN, TOTAL (test code = 0.7 MG/DL 2206) ALKALINE PHOSPHATASE (test 166 U/L code = 2204) AST (test code = 2218) 15 U/L ALT (test code = 2219) 14 U/L [id number] 00:00:00 Test Item Value Reference Range Interpretation Comments TSH, THIRD GENERATION (test code 1.540 UIU/ML = 2821) [id number] 00:00:00 Test Item Value Reference Range Interpretation Comments TSH, THIRD GENERATION (test code 1.540 UIU/ML = 2821) [id number] 00:00:00 Test Item Value Reference Range Interpretation Comments TSH, THIRD GENERATION (test code 1.540 UIU/ML = 2821) VITAMIN D, 25 [id number] 00:00:00 Test Item Value Reference Range Interpretation Comments VITAMIN D, 25 OH (test code = 4958) 20 NG/ML VITAMIN D, 25 [id number] 00:00:00 Test Item Value Reference Range Interpretation Comments VITAMIN D, 25 OH (test code = 4958) 20 NG/ML CBC W/AUTO [id number] 00:00:00 Test Item Value Reference Range Interpretation [...] NUCLEATED RBCS (test code = 0.00 K/UL 49097) CBC W/AUTO [id number] 00:00:00 Test Item Value Reference Range Interpretation [...] NUCLEATED RBCS (test code = 0.00 K/UL 31397) CBC W/AUTO [id number] 00:00:00 Test Item Value Reference Range Interpretation [...] NUCLEATED RBCS (test code = 0.00 K/UL 84918) HEMOGLOBIN [id number] 00:00:00 Test Item Value Reference Range Interpretation Comments HEMOGLOBIN A1c (test code = 84839) 5.2 % HEMOGLOBIN [id number] 00:00:00 Test Item Value Reference Range Interpretation Comments HEMOGLOBIN A1c (test code = 98193) 5.2 % HEMOGLOBIN [id number] 00:00:00 Test Item Value Reference Range Interpretation Comments HEMOGLOBIN A1c (test code = 20116) 5.2 % LIPID [id number] 00:00:00 Test Item Value Reference Range Interpretation Comments CHOLESTEROL (test code = 2210) 151 MG/DL TRIGLYCERIDES (test code = 2232) 286 MG/DL HDL CHOLESTEROL (test code = 2220) 27 MG/DL CALC LDL CHOL (test code = 2237) 86 MG/DL RISK RATIO LDL/HDL (test code = 3.19 RATIO 2238) LIPID [id number] 00:00:00 Test Item Value Reference Range Interpretation Comments CHOLESTEROL (test code = 2210) 151 MG/DL TRIGLYCERIDES (test code = 2232) 286 MG/DL HDL CHOLESTEROL (test code = 2220) 27 MG/DL CALC LDL CHOL (test code = 2237) 86 MG/DL RISK RATIO LDL/HDL (test code = 3.19 RATIO 2238) COMPREHENSIVE METABOLIC [id number] 00:00:00 Test Item Value Reference Range Interpretation Comments GLUCOSE (test code = 2217) 102 MG/DL BUN (test code = 2208) 10 MG/DL CREATININE (test code = 2214) 0.80 MG/DL eGFR AMER. (test code 96 ML/MIN/1.73 = 14434) eGFR NON- AMER. (test 83 ML/MIN/1.73 code = 77510) CALC BUN/CREAT (test code = 13 RATIO [...] code = 2219) 14 U/L COMPREHENSIVE METABOLIC [id number] 00:00:00 Test Item Value Reference Range Interpretation Comments GLUCOSE (test code = 2217) 102 MG/DL BUN (test code = 2208) 10 MG/DL CREATININE (test code = 2214) 0.80 MG/DL eGFR AMER. (test code 96 ML/MIN/1.73 = 41023) eGFR NON- AMER. (test 83 ML/MIN/1.73 code = 06819) CALC BUN/CREAT (test code = 13 RATIO [...] CALC GLOBULIN (test code = 2.7 G/DL 0) CALC A/G RATIO (test code = 1.6 RATIO 4) BILIRUBIN, TOTAL (test code = 0.7 MG/DL 2206) ALKALINE PHOSPHATASE (test 166 U/L code = 2204) AST (test code = 2218) 15 U/L ALT (test code = 2219) 14 U/L [id number] 00:00:00 Test Item Value Reference Range Interpretation Comments TSH, THIRD GENERATION (test code 1.540 UIU/ML = 2821) [id number] 00:00:00 Test Item Value Reference Range Interpretation Comments TSH, THIRD GENERATION (test code 1.540 UIU/ML = 2821) [id number] 00:00:00 Test Item Value Reference Range Interpretation Comments TSH, THIRD GENERATION (test code 1.540 UIU/ML = 2821) VITAMIN D, 25 [id number] 00:00:00 Test Item Value Reference Range Interpretation Comments VITAMIN D, 25 OH (test code = 4958) 20 NG/ML VITAMIN D, 25 [id number] 00:00:00 Test Item Value Reference Range Interpretation Comments VITAMIN D, 25 OH (test code = 4958) 20 NG/ML CBC W/AUTO [id number] 00:00:00 Test Item Value Reference Range Interpretation [...] NUCLEATED RBCS (test code = 0.00 K/UL 75714) CBC W/AUTO [id number] 00:00:00 Test Item Value Reference Range Interpretation [...] NUCLEATED RBCS (test code = 0.00 K/UL 98943) CBC W/AUTO [id number] 00:00:00 Test Item Value Reference Range Interpretation [...] NUCLEATED RBCS (test code = 0.00 K/UL 93971) HEMOGLOBIN [id number] 00:00:00 Test Item Value Reference Range Interpretation Comments HEMOGLOBIN A1c (test code = 52650) 5.2 % HEMOGLOBIN [id number] 00:00:00 Test Item Value Reference Range Interpretation Comments HEMOGLOBIN A1c (test code = 90393) 5.2 % HEMOGLOBIN [id number] 00:00:00 Test Item Value Reference Range Interpretation Comments HEMOGLOBIN A1c (test code = 61693) 5.2 % LIPID [id number] 00:00:00 Test Item Value Reference Range Interpretation Comments CHOLESTEROL (test code = 2210) 151 MG/DL TRIGLYCERIDES (test code = 2232) 286 MG/DL HDL CHOLESTEROL (test code = 2220) 27 MG/DL CALC LDL CHOL (test code = 2237) 86 MG/DL RISK RATIO LDL/HDL (test code = 3.19 RATIO 2238) LIPID [id number] 00:00:00 Test Item Value Reference Range Interpretation Comments CHOLESTEROL (test code = 2210) 151 MG/DL TRIGLYCERIDES (test code = 2232) 286 MG/DL HDL CHOLESTEROL (test code = 2220) 27 MG/DL CALC LDL CHOL (test code = 2237) 86 MG/DL RISK RATIO LDL/HDL (test code = 3.19 RATIO 2238) COMPREHENSIVE METABOLIC [id number] 00:00:00 Test Item Value Reference Range Interpretation Comments GLUCOSE (test code = 2217) 102 MG/DL BUN (test code = 2208) 10 MG/DL CREATININE (test code = 2214) 0.80 MG/DL eGFR AMER. (test code 96 ML/MIN/1.73 = 93691) eGFR NON- AMER. (test 83 ML/MIN/1.73 code = 83997) CALC BUN/CREAT (test code = 13 RATIO [...] code = 2219) 14 U/L COMPREHENSIVE METABOLIC [id number] 00:00:00 Test Item Value Reference Range Interpretation Comments GLUCOSE (test code = 2217) 102 MG/DL BUN (test code = 2208) 10 MG/DL CREATININE (test code = 2214) 0.80 MG/DL eGFR AMER. (test code 96 ML/MIN/1.73 = 46069) eGFR NON- AMER. (test 83 ML/MIN/1.73 code = 61150) CALC BUN/CREAT (test code = 13 RATIO [...] ALT (test code = 2219) 14 U/L [id number] 00:00:00 Test Item Value Reference Range Interpretation Comments TSH, THIRD GENERATION (test code 1.540 UIU/ML = 2821) [id number] 00:00:00 Test Item Value Reference Range Interpretation Comments TSH, THIRD GENERATION (test code 1.540 UIU/ML = 2821) [id number] 00:00:00 Test Item Value Reference Range Interpretation Comments TSH, THIRD GENERATION (test code 1.540 UIU/ML = 2821) VITAMIN D, 25 [id number] 00:00:00 Test Item Value Reference Range Interpretation Comments VITAMIN D, 25 OH (test code = 4958) 20 NG/ML VITAMIN D, 25 [id number] 00:00:00 Test Item Value Reference Range Interpretation Comments VITAMIN D, 25 OH (test code = 4958) 20 NG/ML CBC W/AUTO [id number] 00:00:00 Test Item Value Reference Range Interpretation [...] NUCLEATED RBCS (test code = 0.00 K/UL 06566) CBC W/AUTO [id number] 00:00:00 Test Item Value Reference Range Interpretation [...] NUCLEATED RBCS (test code = 0.00 K/UL 23530) CBC W/AUTO [id number] 00:00:00 Test Item Value Reference Range Interpretation [...] NUCLEATED RBCS (test code = 0.00 K/UL 86350) HEMOGLOBIN [id number] 00:00:00 Test Item Value Reference Range Interpretation Comments HEMOGLOBIN A1c (test code = 36016) 5.2 % HEMOGLOBIN [id number] 00:00:00 Test Item Value Reference Range Interpretation Comments HEMOGLOBIN A1c (test code = 63092) 5.2 % HEMOGLOBIN [id number] 00:00:00 Test Item Value Reference Range Interpretation Comments HEMOGLOBIN A1c (test code = 72397) 5.2 % LIPID [id number] 00:00:00 Test Item Value Reference Range Interpretation Comments CHOLESTEROL (test code = 2210) 151 MG/DL TRIGLYCERIDES (test code = 2232) 286 MG/DL HDL CHOLESTEROL (test code = 2220) 27 MG/DL CALC LDL CHOL (test code = 2237) 86 MG/DL RISK RATIO LDL/HDL (test code = 3.19 RATIO 2238) LIPID [id number] 00:00:00 Test Item Value Reference Range Interpretation Comments CHOLESTEROL (test code = 2210) 151 MG/DL TRIGLYCERIDES (test code = 2232) 286 MG/DL HDL CHOLESTEROL (test code = 2220) 27 MG/DL CALC LDL CHOL (test code = 2237) 86 MG/DL RISK RATIO LDL/HDL (test code = 3.19 RATIO 2238) COMPREHENSIVE METABOLIC [id number] 00:00:00 Test Item Value Reference Range Interpretation Comments GLUCOSE (test code = 2217) 102 MG/DL BUN (test code = 2208) 10 MG/DL CREATININE (test code = 2214) 0.80 MG/DL eGFR AMER. (test code 96 ML/MIN/1.73 = 34867) eGFR NON- AMER. (test 83 ML/MIN/1.73 code = 57232) CALC BUN/CREAT (test code = 13 RATIO [...] code = 2219) 14 U/L COMPREHENSIVE METABOLIC [id number] 00:00:00 Test Item Value Reference Range Interpretation Comments GLUCOSE (test code = 2217) 102 MG/DL BUN (test code = 2208) 10 MG/DL CREATININE (test code = 2214) 0.80 MG/DL eGFR AMER. (test code 96 ML/MIN/1.73 = 41614) eGFR NON- AMER. (test 83 ML/MIN/1.73 code = 27754) CALC BUN/CREAT (test code = 13 RATIO [...] ALT (test code = 2219) 14 U/L [id number] 00:00:00 Test Item Value Reference Range Interpretation Comments TSH, THIRD GENERATION (test code 1.540 UIU/ML = 2821) [id number] 00:00:00 Test Item Value Reference Range Interpretation Comments TSH, THIRD GENERATION (test code 1.540 UIU/ML = 2821) [id number] 00:00:00 Test Item Value Reference Range Interpretation Comments TSH, THIRD GENERATION (test code 1.540 UIU/ML = 2821) VITAMIN D, 25 [id number] 00:00:00 Test Item Value Reference Range Interpretation Comments VITAMIN D, 25 OH (test code = 4958) 20 NG/ML VITAMIN D, 25 [id number] 00:00:00 Test Item Value Reference Range Interpretation Comments VITAMIN D, 25 OH (test code = 4958) 20 NG/ML CBC W/AUTO [id number] 00:00:00 Test Item Value Reference Range Interpretation [...] NUCLEATED RBCS (test code = 0.00 K/UL 89074) CBC W/AUTO [id number] 00:00:00 Test Item Value Reference Range Interpretation [...] NUCLEATED RBCS (test code = 0.00 K/UL 34785) CBC W/AUTO [id number] 00:00:00 Test Item Value Reference Range Interpretation [...] NUCLEATED RBCS (test code = 0.00 K/UL 83752) HEMOGLOBIN [id number] 00:00:00 Test Item Value Reference Range Interpretation Comments HEMOGLOBIN A1c (test code = 51065) 5.2 % HEMOGLOBIN [id number] 00:00:00 Test Item Value Reference Range Interpretation Comments HEMOGLOBIN A1c (test code = 00890) 5.2 % HEMOGLOBIN [id number] 00:00:00 Test Item Value Reference Range Interpretation Comments HEMOGLOBIN A1c (test code = 39562) 5.2 % LIPID [id number] 00:00:00 Test Item Value Reference Range Interpretation Comments CHOLESTEROL (test code = 2210) 151 MG/DL TRIGLYCERIDES (test code = 2232) 286 MG/DL HDL CHOLESTEROL (test code = 2220) 27 MG/DL CALC LDL CHOL (test code = 2237) 86 MG/DL RISK RATIO LDL/HDL (test code = 3.19 RATIO 2238) LIPID [id number] 00:00:00 Test Item Value Reference Range Interpretation Comments CHOLESTEROL (test code = 2210) 151 MG/DL TRIGLYCERIDES (test code = 2232) 286 MG/DL HDL CHOLESTEROL (test code = 2220) 27 MG/DL CALC LDL CHOL (test code = 2237) 86 MG/DL RISK RATIO LDL/HDL (test code = 3.19 RATIO 2238) COMPREHENSIVE METABOLIC [id number] 00:00:00 Test Item Value Reference Range Interpretation Comments GLUCOSE (test code = 2217) 102 MG/DL BUN (test code = 2208) 10 MG/DL CREATININE (test code = 2214) 0.80 MG/DL eGFR AMER. (test code 96 ML/MIN/1.73 = 66396) eGFR NON- AMER. (test 83 ML/MIN/1.73 code = 71280) CALC BUN/CREAT (test code = 13 RATIO [...] code = 2219) 14 U/L COMPREHENSIVE METABOLIC [id number] 00:00:00 Test Item Value Reference Range Interpretation Comments GLUCOSE (test code = 2217) 102 MG/DL BUN (test code = 2208) 10 MG/DL CREATININE (test code = 2214) 0.80 MG/DL eGFR AMER. (test code 96 ML/MIN/1.73 = 03884) eGFR NON- AMER. (test 83 ML/MIN/1.73 code = 51094) CALC BUN/CREAT (test code = 13 RATIO [...] ALT (test code = 2219) 14 U/L [id number] 00:00:00 Test Item Value Reference Range Interpretation Comments TSH, THIRD GENERATION (test code 1.540 UIU/ML = 2821) [id number] 00:00:00 Test Item Value Reference Range Interpretation Comments TSH, THIRD GENERATION (test code 1.540 UIU/ML = 2821) [id number] 00:00:00 Test Item Value Reference Range Interpretation Comments TSH, THIRD GENERATION (test code 1.540 UIU/ML = 2821) VITAMIN D, 25 [id number] 00:00:00 Test Item Value Reference Range Interpretation Comments VITAMIN D, 25 OH (test code = 4958) 20 NG/ML VITAMIN D, 25 [id number] 00:00:00 Test Item Value Reference Range Interpretation Comments VITAMIN D, 25 OH (test code = 4958) 20 NG/ML CBC W/AUTO [id number] 00:00:00 Test Item Value Reference Range Interpretation [...] NUCLEATED RBCS (test code = 0.00 K/UL 72993) SCR MAMM BILATERAL SARAH CAD [id number] 10:14:45 - SCR MAMM BILATERAL SARAH CAD DIGITALBILATERAL DIGITAL SCREENING MAMMOGRAM 3D/2D WITH CAD: 06/28/2020C LINICAL: Asymptomatic. Digital breast tomosynthesis was performed in addition to routine CC and MLO views. Current mammographic images were evaluated by either a [employer] M-Vu or a [employer] ImageChecker CAD (computer aided detection system). Comparison is made to exams dated 12/20/2018 mammogram - [facility] and 02/02/2012 mammogram - [facility]. The tissue of both breasts is heterogeneously dense. This may lower the sensitivity of mammography. No suspicious mass, architectural distortion, malignant type calcification, or lymph node abnormality detected. Breast architecture is stable compared to prior exams.IMPRESSION: NEGATIVEThere is no mammographic evidence of malignancy. Resume annual screening mammography in one year. Antione altman/chris:07/05/2020 10:14:45 Entry: cl - 07/05/2020 10:14:45Imaging Technologist: Zunilda Armstrong MM, [facility] [employer] [facility] ammographyletter sent: BIRADS 1-2 Normal Mammogram BI-RADS: 1 [id number]-[id number] (COVID-19) by RT-PCR (HIGH RISK)2020-06-05 00:00:00 Test Item Value Reference Range Interpretation Comments SARS-CoV-2 INTERPRETATION (test NEGATIVE code = 16716) SOURCE (test code = 49686) NOT SPECIFIED SARS-CoV-2 (COVID-19) by RT-PCR (HIGH RISK)2020-06-05 00:00:00 Test Item Value Reference Range Interpretation Comments SARS-CoV-2 INTERPRETATION (test NEGATIVE code = 42826) SOURCE (test code = 20870) NOT SPECIFIED SARS-CoV-2 (COVID-19) by RT-PCR (HIGH RISK)2020-06-05 00:00:00 Test Item Value Reference Range Interpretation Comments SARS-CoV-2 INTERPRETATION (test NEGATIVE code = 84685) SOURCE (test code = 42101) NOT SPECIFIED SARS-CoV-2 (COVID-19) by RT-PCR (HIGH RISK)2020-06-05 00:00:00 Test Item Value Reference Range Interpretation Comments SARS-CoV-2 INTERPRETATION (test NEGATIVE code = 98098) SOURCE (test code = 28267) NOT SPECIFIED SARS-CoV-2 (COVID-19) by RT-PCR (HIGH RISK)2020-06-05 00:00:00 Test Item Value Reference Range Interpretation Comments SARS-CoV-2 INTERPRETATION (test NEGATIVE code = 65230) SOURCE (test code = 24540) NOT SPECIFIED SARS-CoV-2 (COVID-19) by RT-PCR (HIGH RISK)2020-06-05 00:00:00 Test Item Value Reference Range Interpretation Comments SARS-CoV-2 INTERPRETATION (test NEGATIVE code = 40193) SOURCE (test code = 49853) NOT SPECIFIED SARS-CoV-2 (COVID-19) by RT-PCR (HIGH RISK)2020-06-05 00:00:00 Test Item Value Reference Range Interpretation Comments SARS-CoV-2 INTERPRETATION (test NEGATIVE code = 30515) SOURCE (test code = 83571) NOT SPECIFIED SARS-CoV-2 (COVID-19) by RT-PCR (HIGH RISK)2020-06-05 00:00:00 Test Item Value Reference Range Interpretation Comments SARS-CoV-2 INTERPRETATION (test NEGATIVE code = 14800) SOURCE (test code = 29819) NOT SPECIFIED SARS-CoV-2 (COVID-19) by RT-PCR (HIGH RISK)2020-06-05 00:00:00 Test Item Value Reference Range Interpretation Comments SARS-CoV-2 INTERPRETATION (test NEGATIVE code = 62807) SOURCE (test code = 44259) NOT SPECIFIED SARS-CoV-2 (COVID-19) by RT-PCR (HIGH RISK)2020-06-05 00:00:00 Test Item Value Reference Range Interpretation Comments SARS-CoV-2 INTERPRETATION (test NEGATIVE code = 83815) SOURCE (test code = 60927) NOT SPECIFIED SARS-CoV-2 (COVID-19) by RT-PCR (HIGH RISK)2020-06-05 00:00:00 Test Item Value Reference Range Interpretation Comments SARS-CoV-2 INTERPRETATION (test NEGATIVE code = 13836) SOURCE (test code = 73816) NOT SPECIFIED HCV RNA, PCR [id number] 00:00:00 Test Item Value Reference Range Interpretation Comments HCV RNA, PCR QUANT Not Detected IU/mL (test code = 4571) HCV VIRAL LOG (test Not Detected logIU/mL code = 12930) HCV RNA, PCR [id number] 00:00:00 Test Item Value Reference Range Interpretation Comments HCV RNA, PCR QUANT Not Detected IU/mL (test code = 4571) HCV VIRAL LOG (test Not Detected logIU/mL code = 44916) HCV RNA, PCR [id number] 00:00:00 Test Item Value Reference Range Interpretation Comments HCV RNA, PCR QUANT Not Detected IU/mL (test code = 4571) HCV VIRAL LOG (test Not Detected logIU/mL code = 06666) HCV RNA, PCR [id number] 00:00:00 Test Item Value Reference Range Interpretation Comments HCV RNA, PCR QUANT Not Detected IU/mL (test code = 4571) HCV VIRAL LOG (test Not Detected logIU/mL code = 32291) HCV RNA, PCR [id number] 00:00:00 Test Item Value Reference Range Interpretation Comments HCV RNA, PCR QUANT Not Detected IU/mL (test code = 4571) HCV VIRAL LOG (test Not Detected logIU/mL code = 20374) HCV RNA, PCR [id number] 00:00:00 Test Item Value Reference Range Interpretation Comments HCV RNA, PCR QUANT Not Detected IU/mL (test code = 4571) HCV VIRAL LOG (test Not Detected logIU/mL code = 35778) HCV RNA, PCR [id number] 00:00:00 Test Item Value Reference Range Interpretation Comments HCV RNA, PCR QUANT Not Detected IU/mL (test code = 4571) HCV VIRAL LOG (test Not Detected logIU/mL code = 84258) HCV RNA, PCR [id number] 00:00:00 Test Item Value Reference Range Interpretation Comments HCV RNA, PCR QUANT Not Detected IU/mL (test code = 4571) HCV VIRAL LOG (test Not Detected logIU/mL code = 56669) HCV RNA, PCR [id number] 00:00:00 Test Item Value Reference Range Interpretation Comments HCV RNA, PCR QUANT Not Detected IU/mL (test code = 4571) HCV VIRAL LOG (test Not Detected logIU/mL code = 56123) HCV RNA, PCR [id number] 00:00:00 Test Item Value Reference Range Interpretation Comments HCV RNA, PCR QUANT Not Detected IU/mL (test code = 4571) HCV VIRAL LOG (test Not Detected logIU/mL code = 43506) HCV RNA, PCR [id number] 00:00:00 Test Item Value Reference Range Interpretation Comments HCV RNA, PCR QUANT Not Detected IU/mL (test code = 4571) HCV VIRAL LOG (test Not Detected logIU/mL code = 27316) HCV RNA, PCR [id number] 00:00:00 Test Item Value Reference Range Interpretation Comments HCV RNA, PCR QUANT Not Detected IU/mL (test code = 4571) HCV VIRAL LOG (test Not Detected logIU/mL code = 64418) HCV RNA, PCR [id number] 00:00:00 Test Item Value Reference Range Interpretation Comments HCV RNA, PCR QUANT Not Detected IU/mL (test code = 4571) HCV VIRAL LOG (test Not Detected logIU/mL code = 42501) HCV RNA, PCR [id number] 00:00:00 Test Item Value Reference Range Interpretation Comments HCV RNA, PCR QUANT Not Detected IU/mL (test code = 4571) HCV VIRAL LOG (test Not Detected logIU/mL code = 32469) HCV RNA, PCR [id number] 00:00:00 Test Item Value Reference Range Interpretation Comments HCV RNA, PCR QUANT Not Detected IU/mL (test code = 4571) HCV VIRAL LOG (test Not Detected logIU/mL code = 24388) HCV RNA, PCR [id number] 00:00:00 Test Item Value Reference Range Interpretation Comments HCV RNA, PCR QUANT Not Detected IU/mL (test code = 4571) HCV VIRAL LOG (test Not Detected logIU/mL code = 80063) HCV RNA, PCR [id number] 00:00:00 Test Item Value Reference Range Interpretation Comments HCV RNA, PCR QUANT Not Detected IU/mL (test code = 4571) HCV VIRAL LOG (test Not Detected logIU/mL code = 96123) LIVER (HEPATIC) FUNCTION [id number] 00:00:00 Test Item Value Reference Range Interpretation [...] = 2219) 12 U/L LIVER (HEPATIC) FUNCTION [id number] 00:00:00 Test Item Value Reference Range Interpretation [...] = 2219) 12 U/L LIVER (HEPATIC) FUNCTION [id number] 00:00:00 Test Item Value Reference Range Interpretation [...] = 2219) 12 U/L LIVER (HEPATIC) FUNCTION [id number] 00:00:00 Test Item Value Reference Range Interpretation [...] = 2219) 12 U/L LIVER (HEPATIC) FUNCTION [id number] 00:00:00 Test Item Value Reference Range Interpretation [...] = 2219) 12 U/L LIVER (HEPATIC) FUNCTION [id number] 00:00:00 Test Item Value Reference Range Interpretation [...] = 2219) 12 U/L LIVER (HEPATIC) FUNCTION [id number] 00:00:00 Test Item Value Reference Range Interpretation [...] = 2219) 12 U/L LIVER (HEPATIC) FUNCTION [id number] 00:00:00 Test Item Value Reference Range Interpretation [...] = 2219) 12 U/L LIVER (HEPATIC) FUNCTION [id number] 00:00:00 Test Item Value Reference Range Interpretation [...] = 2219) 12 U/L LIVER (HEPATIC) FUNCTION [id number] 00:00:00 Test Item Value Reference Range Interpretation [...] = 2219) 12 U/L LIVER (HEPATIC) FUNCTION [id number] 00:00:00 Test Item Value Reference Range Interpretation [...] = 2219) 12 U/L HCV RNA, PCR [id number] 00:00:00 Test Item Value Reference Range Interpretation Comments HCV RNA, PCR QUANT (test NOT DETEC IU/ML code = 4571) HCV VIRAL LOG (test code = NOT DETEC LOGIU/ML 39561) HCV RNA, PCR [id number] 00:00:00 Test Item Value Reference Range Interpretation Comments HCV RNA, PCR QUANT (test NOT DETEC IU/ML code = 4571) HCV VIRAL LOG (test code = NOT DETEC LOGIU/ML 57126) HCV RNA, PCR [id number] 00:00:00 Test Item Value Reference Range Interpretation Comments HCV RNA, PCR QUANT (test NOT DETEC IU/ML code = 4571) HCV VIRAL LOG (test code = NOT DETEC LOGIU/ML 85908) HCV RNA, PCR [id number] 00:00:00 Test Item Value Reference Range Interpretation Comments HCV RNA, PCR QUANT (test NOT DETEC IU/ML code = 4571) HCV VIRAL LOG (test code = NOT DETEC LOGIU/ML 15383) HCV RNA, PCR [id number] 00:00:00 Test Item Value Reference Range Interpretation Comments HCV RNA, PCR QUANT (test NOT DETEC IU/ML code = 4571) HCV VIRAL LOG (test code = NOT DETEC LOGIU/ML 79612) HCV RNA, PCR [id number] 00:00:00 Test Item Value Reference Range Interpretation Comments HCV RNA, PCR QUANT (test NOT DETEC IU/ML code = 4571) HCV VIRAL LOG (test code = NOT DETEC LOGIU/ML 30683) HCV RNA, PCR [id number] 00:00:00 Test Item Value Reference Range Interpretation Comments HCV RNA, PCR QUANT (test NOT DETEC IU/ML code = 4571) HCV VIRAL LOG (test code = NOT DETEC LOGIU/ML 81011) HCV RNA, PCR [id number] 00:00:00 Test Item Value Reference Range Interpretation Comments HCV RNA, PCR QUANT (test NOT DETEC IU/ML code = 4571) HCV VIRAL LOG (test code = NOT DETEC LOGIU/ML 14760) HCV RNA, PCR [id number] 00:00:00 Test Item Value Reference Range Interpretation Comments HCV RNA, PCR QUANT (test NOT DETEC IU/ML code = 4571) HCV VIRAL LOG (test code = NOT DETEC LOGIU/ML 73959) HCV RNA, PCR [id number] 00:00:00 Test Item Value Reference Range Interpretation Comments HCV RNA, PCR QUANT (test NOT DETEC IU/ML code = 4571) HCV VIRAL LOG (test code = NOT DETEC LOGIU/ML 49893) HCV RNA, PCR [id number] 00:00:00 Test Item Value Reference Range Interpretation Comments HCV RNA, PCR QUANT (test NOT DETEC IU/ML code = 4571) HCV VIRAL LOG (test code = NOT DETEC LOGIU/ML 80924) HCV RNA, PCR [id number] 00:00:00 Test Item Value Reference Range Interpretation Comments HCV RNA, PCR QUANT (test NOT DETEC IU/ML code = 4571) HCV VIRAL LOG (test code = NOT DETEC LOGIU/ML 16007) HCV RNA, PCR [id number] 00:00:00 Test Item Value Reference Range Interpretation Comments HCV RNA, PCR QUANT (test NOT DETEC IU/ML code = 4571) HCV VIRAL LOG (test code = NOT DETEC LOGIU/ML 96501) HCV RNA, PCR [id number] 00:00:00 Test Item Value Reference Range Interpretation Comments HCV RNA, PCR QUANT (test NOT DETEC IU/ML code = 4571) HCV VIRAL LOG (test code = NOT DETEC LOGIU/ML 47828) HCV RNA, PCR [id number] 00:00:00 Test Item Value Reference Range Interpretation Comments HCV RNA, PCR QUANT (test NOT DETEC IU/ML code = 4571) HCV VIRAL LOG (test code = NOT DETEC LOGIU/ML 55251) HCV RNA, PCR [id number] 00:00:00 Test Item Value Reference Range Interpretation Comments HCV RNA, PCR QUANT (test NOT DETEC IU/ML code = 4571) HCV VIRAL LOG (test code = NOT DETEC LOGIU/ML 79625) HCV RNA, PCR [id number] 00:00:00 Test Item Value Reference Range Interpretation Comments HCV RNA, PCR QUANT (test NOT DETEC IU/ML code = 4571) HCV VIRAL LOG (test code = NOT DETEC LOGIU/ML 77674) LIVER (HEPATIC) FUNCTION [id number] 00:00:00 Test Item Value Reference Range Interpretation [...] = 2219) 7 U/L LIVER (HEPATIC) FUNCTION [id number] 00:00:00 Test Item Value Reference Range Interpretation [...] = 2219) 7 U/L LIVER (HEPATIC) FUNCTION [id number] 00:00:00 Test Item Value Reference Range Interpretation [...] = 2219) 7 U/L LIVER (HEPATIC) FUNCTION [id number] 00:00:00 Test Item Value Reference Range Interpretation [...] = 2219) 7 U/L LIVER (HEPATIC) FUNCTION [id number] 00:00:00 Test Item Value Reference Range Interpretation [...] = 2219) 7 U/L LIVER (HEPATIC) FUNCTION [id number] 00:00:00 Test Item Value Reference Range Interpretation [...] = 2219) 7 U/L LIVER (HEPATIC) FUNCTION [id number] 00:00:00 Test Item Value Reference Range Interpretation [...] = 2219) 7 U/L LIVER (HEPATIC) FUNCTION [id number] 00:00:00 Test Item Value Reference Range Interpretation [...] = 2219) 7 U/L LIVER (HEPATIC) FUNCTION [id number] 00:00:00 Test Item Value Reference Range Interpretation [...] = 2219) 7 U/L LIVER (HEPATIC) FUNCTION [id number] 00:00:00 Test Item Value Reference Range Interpretation [...] = 2219) 7 U/L LIVER (HEPATIC) FUNCTION [id number] 00:00:00 Test Item Value Reference Range Interpretation Comments PROTEIN, TOTAL (test code = 2229) 7.1 G/DL ALBUMIN (test code = 2201) 4.3 G/DL BILIRUBIN, TOTAL (test code = 2207) 0.3 MG/DL BILIRUBIN, DIRECT (test code = 0.1 MG/DL 2021) ALKALINE PHOSPHATASE (test code = 148 U/L 2203) AST (test code = 2218) 15 U/L ALT (test code = 2219) 7 U/L HEPATITIS C [id number] 00:00:00 Test Item Value Reference Range Interpretation Comments HEPATITIS C GENOTYPE (test code = 1a 39766) HEPATITIS C [id number] 00:00:00 Test Item Value Reference Range Interpretation Comments HEPATITIS C GENOTYPE (test code = 1a 79624) HEPATITIS C [id number] 00:00:00 Test Item Value Reference Range Interpretation Comments HEPATITIS C GENOTYPE (test code = 1a 69834) HEPATITIS C [id number] 00:00:00 Test Item Value Reference Range Interpretation Comments HEPATITIS C GENOTYPE (test code = 1a 64238) HEPATITIS C [id number] 00:00:00 Test Item Value Reference Range Interpretation Comments HEPATITIS C GENOTYPE (test code = 1a 70940) HEPATITIS C [id number] 00:00:00 Test Item Value Reference Range Interpretation Comments HEPATITIS C GENOTYPE (test code = 1a 33103) HEPATITIS C [id number] 00:00:00 Test Item Value Reference Range Interpretation Comments HEPATITIS C GENOTYPE (test code = 1a 76552) HEPATITIS C [id number] 00:00:00 Test Item Value Reference Range Interpretation Comments HEPATITIS C GENOTYPE (test code = 1a 74027) HEPATITIS C [id number] 00:00:00 Test Item Value Reference Range Interpretation Comments HEPATITIS C GENOTYPE (test code = 1a 92196) HEPATITIS C [id number] 00:00:00 Test Item Value Reference Range Interpretation Comments HEPATITIS C GENOTYPE (test code = 1a 38154) HEPATITIS C [id number] 00:00:00 Test Item Value Reference Range Interpretation Comments HEPATITIS C GENOTYPE (test code = 1a 89655) HEP B CORE TOTAL [id number] 00:00:00 Test Item Value Reference Range Interpretation Comments HEP B CORE TOTAL AB (test code = NON-REACTIVE 2729) HEPATITIS Bs AB [id number] 00:00:00 Test Item Value Reference Range Interpretation Comments HEPATITIS Bs AB QUANT (test code 0.05 MIU/ML = 2738) HEPATITIS Bs AB [id number] 00:00:00 Test Item Value Reference Range Interpretation Comments HEPATITIS Bs AB QUANT (test code 0.05 MIU/ML = 2738) MITOCHONDRIAL M2 [id number] 00:00:00 Test Item Value Reference Range Interpretation Comments MITOCHONDRIAL M2 AB (test code = 30.9 UNITS 4634) ALKALINE PHOSPHATASE [id number] 00:00:00 Test Item Value Reference Range Interpretation Comments ALKALINE PHOSPHATASE (test code = 196 U/L 77337) ALK PHOS, LIVER 1% (test code = 37.3 % 96337) ALK PHOS, LIVER 1 ABS (test code = 73.1 U/L 00358) ALK PHOS, LIVER 2% (test code = 4.5 % 19714) ALK PHOS, LIVER 2 ABS (test code = 8.8 U/L 49150) ALK PHOS, BONE % (test code = 38166) 44.0 % ALK PHOS, BONE ABS (test code = 86.2 U/L 66652) ALK PHOS, INTESTINE % (test code = 14.2 % 09482) ALK PHOS, INTESTINE ABS (test code = 27.8 U/L 793619) ALK PHOS, PLACENTAL % (test code = 0.0 % 480932) ALK PHOS, PLACENTAL ABS (test code = 0.0 U/L 316210) ALKALINE PHOSPHATASE [id number] 00:00:00 Test Item Value Reference Range Interpretation Comments ALKALINE PHOSPHATASE (test code = 196 U/L 23968) ALK PHOS, LIVER 1% (test code = 37.3 % 59716) ALK PHOS, LIVER 1 ABS (test code = 73.1 U/L 42198) ALK PHOS, LIVER 2% (test code = 4.5 % 05951) ALK PHOS, LIVER 2 ABS (test code = 8.8 U/L 27268) ALK PHOS, BONE % (test code = 89506) 44.0 % ALK PHOS, BONE ABS (test code = 86.2 U/L 03956) ALK PHOS, INTESTINE % (test code = 14.2 % 42080) ALK PHOS, INTESTINE ABS (test code = 27.8 U/L 792664) ALK PHOS, PLACENTAL % (test code = 0.0 % 932217) ALK PHOS, PLACENTAL ABS (test code = 0.0 U/L 886335) HIV AB/AG COMBO RFLX [id number] 00:00:00 Test Item Value Reference Range Interpretation Comments HIV 1/2 4TH GEN, RFLX CONF (test NON-REACTIVE code = 3514) HEP B CORE TOTAL [id number] 00:00:00 Test Item Value Reference Range Interpretation Comments HEP B CORE TOTAL AB (test code = NON-REACTIVE 9) HEP B CORE TOTAL [id number] 00:00:00 Test Item Value Reference Range Interpretation Comments HEP B CORE TOTAL AB (test code = NON-REACTIVE 9) HEP B CORE TOTAL [id number] 00:00:00 Test Item Value Reference Range Interpretation Comments HEP B CORE TOTAL AB (test code = NON-REACTIVE 9) HEPATITIS Bs AB [id number] 00:00:00 Test Item Value Reference Range Interpretation Comments HEPATITIS Bs AB QUANT (test code 0.05 MIU/ML = 2738) HEPATITIS Bs AB [id number] 00:00:00 Test Item Value Reference Range Interpretation Comments HEPATITIS Bs AB QUANT (test code 0.05 MIU/ML = 2738) HEPATITIS Bs AB [id number] 00:00:00 Test Item Value Reference Range Interpretation Comments HEPATITIS Bs AB QUANT (test code 0.05 MIU/ML = 2738) MITOCHONDRIAL M2 [id number] 00:00:00 Test Item Value Reference Range Interpretation Comments MITOCHONDRIAL M2 AB (test code = 30.9 UNITS 4634) MITOCHONDRIAL M2 [id number] 00:00:00 Test Item Value Reference Range Interpretation Comments MITOCHONDRIAL M2 AB (test code = 30.9 UNITS 4634) ALKALINE PHOSPHATASE [id number] 00:00:00 Test Item Value Reference Range Interpretation Comments ALKALINE PHOSPHATASE (test code = 196 U/L 01410) ALK PHOS, LIVER 1% (test code = 37.3 % 31416) ALK PHOS, LIVER 1 ABS (test code = 73.1 U/L 09963) ALK PHOS, LIVER 2% (test code = 4.5 % 28540) ALK PHOS, LIVER 2 ABS (test code = 8.8 U/L 28251) ALK PHOS, BONE % (test code = 83743) 44.0 % ALK PHOS, BONE ABS (test code = 86.2 U/L 09825) ALK PHOS, INTESTINE % (test code = 14.2 % 60844) ALK PHOS, INTESTINE ABS (test code = 27.8 U/L 858338) ALK PHOS, PLACENTAL % (test code = 0.0 % 728672) ALK PHOS, PLACENTAL ABS (test code = 0.0 U/L 274874) ALKALINE PHOSPHATASE [id number] 00:00:00 Test Item Value Reference Range Interpretation Comments ALKALINE PHOSPHATASE (test code = 196 U/L 12654) ALK PHOS, LIVER 1% (test code = 37.3 % 81978) ALK PHOS, LIVER 1 ABS (test code = 73.1 U/L 33497) ALK PHOS, LIVER 2% (test code = 4.5 % 35903) ALK PHOS, LIVER 2 ABS (test code = 8.8 U/L 76520) ALK PHOS, BONE % (test code = 88529) 44.0 % ALK PHOS, BONE ABS (test code = 86.2 U/L 57926) ALK PHOS, INTESTINE % (test code = 14.2 % 17631) ALK PHOS, INTESTINE ABS (test code = 27.8 U/L 991346) ALK PHOS, PLACENTAL % (test code = 0.0 % 124090) ALK PHOS, PLACENTAL ABS (test code = 0.0 U/L 525616) ALKALINE PHOSPHATASE [id number] 00:00:00 Test Item Value Reference Range Interpretation Comments ALKALINE PHOSPHATASE (test code = 196 U/L 28327) ALK PHOS, LIVER 1% (test code = 37.3 % 65714) ALK PHOS, LIVER 1 ABS (test code = 73.1 U/L 36902) ALK PHOS, LIVER 2% (test code = 4.5 % 49150) ALK PHOS, LIVER 2 ABS (test code = 8.8 U/L 37951) ALK PHOS, BONE % (test code = 65159) 44.0 % ALK PHOS, BONE ABS (test code = 86.2 U/L 08548) ALK PHOS, INTESTINE % (test code = 14.2 % 64779) ALK PHOS, INTESTINE ABS (test code = 27.8 U/L 232036) ALK PHOS, PLACENTAL % (test code = 0.0 % 947857) ALK PHOS, PLACENTAL ABS (test code = 0.0 U/L 167830) HIV AB/AG COMBO RFLX [id number] 00:00:00 Test Item Value Reference Range Interpretation Comments HIV 1/2 4TH GEN, RFLX CONF (test NON-REACTIVE code = 3514) HIV AB/AG COMBO RFLX [id number] 00:00:00 Test Item Value Reference Range Interpretation Comments HIV 1/2 4TH GEN, RFLX CONF (test NON-REACTIVE code = 3514) HEP B CORE TOTAL [id number] 00:00:00 Test Item Value Reference Range Interpretation Comments HEP B CORE TOTAL AB (test code = NON-REACTIVE 2729) HEP B CORE TOTAL [id number] 00:00:00 Test Item Value Reference Range Interpretation Comments HEP B CORE TOTAL AB (test code = NON-REACTIVE 2729) HEP B CORE TOTAL [id number] 00:00:00 Test Item Value Reference Range Interpretation Comments HEP B CORE TOTAL AB (test code = NON-REACTIVE 2729) HEPATITIS Bs AB [id number] 00:00:00 Test Item Value Reference Range Interpretation Comments HEPATITIS Bs AB QUANT (test code 0.05 MIU/ML = 2738) HEPATITIS Bs AB [id number] 00:00:00 Test Item Value Reference Range Interpretation Comments HEPATITIS Bs AB QUANT (test code 0.05 MIU/ML = 2738) HEPATITIS Bs AB [id number] 00:00:00 Test Item Value Reference Range Interpretation Comments HEPATITIS Bs AB QUANT (test code 0.05 MIU/ML = 2738) MITOCHONDRIAL M2 [id number] 00:00:00 Test Item Value Reference Range Interpretation Comments MITOCHONDRIAL M2 AB (test code = 30.9 UNITS 4634) MITOCHONDRIAL M2 [id number] 00:00:00 Test Item Value Reference Range Interpretation Comments MITOCHONDRIAL M2 AB (test code = 30.9 UNITS 4634) ALKALINE PHOSPHATASE [id number] 00:00:00 Test Item Value Reference Range Interpretation Comments ALKALINE PHOSPHATASE (test code = 196 U/L 31094) ALK PHOS, LIVER 1% (test code = 37.3 % 86340) ALK PHOS, LIVER 1 ABS (test code = 73.1 U/L 26473) ALK PHOS, LIVER 2% (test code = 4.5 % 59490) ALK PHOS, LIVER 2 ABS (test code = 8.8 U/L 01796) ALK PHOS, BONE % (test code = 12143) 44.0 % ALK PHOS, BONE ABS (test code = 86.2 U/L 07826) ALK PHOS, INTESTINE % (test code = 14.2 % 69311) ALK PHOS, INTESTINE ABS (test code = 27.8 U/L 718523) ALK PHOS, PLACENTAL % (test code = 0.0 % 640356) ALK PHOS, PLACENTAL ABS (test code = 0.0 U/L 594767) ALKALINE PHOSPHATASE [id number] 00:00:00 Test Item Value Reference Range Interpretation Comments ALKALINE PHOSPHATASE (test code = 196 U/L 95306) ALK PHOS, LIVER 1% (test code = 37.3 % 44606) ALK PHOS, LIVER 1 ABS (test code = 73.1 U/L 13009) ALK PHOS, LIVER 2% (test code = 4.5 % 46648) ALK PHOS, LIVER 2 ABS (test code = 8.8 U/L 54799) ALK PHOS, BONE % (test code = 26390) 44.0 % ALK PHOS, BONE ABS (test code = 86.2 U/L 79421) ALK PHOS, INTESTINE % (test code = 14.2 % 39399) ALK PHOS, INTESTINE ABS (test code = 27.8 U/L 950822) ALK PHOS, PLACENTAL % (test code = 0.0 % 709404) ALK PHOS, PLACENTAL ABS (test code = 0.0 U/L 862213) ALKALINE PHOSPHATASE [id number] 00:00:00 Test Item Value Reference Range Interpretation Comments ALKALINE PHOSPHATASE (test code = 196 U/L 09492) ALK PHOS, LIVER 1% (test code = 37.3 % 44325) ALK PHOS, LIVER 1 ABS (test code = 73.1 U/L 87895) ALK PHOS, LIVER 2% (test code = 4.5 % 76743) ALK PHOS, LIVER 2 ABS (test code = 8.8 U/L 86131) ALK PHOS, BONE % (test code = 91876) 44.0 % ALK PHOS, BONE ABS (test code = 86.2 U/L 12508) ALK PHOS, INTESTINE % (test code = 14.2 % 49863) ALK PHOS, INTESTINE ABS (test code = 27.8 U/L 394283) ALK PHOS, PLACENTAL % (test code = 0.0 % 741218) ALK PHOS, PLACENTAL ABS (test code = 0.0 U/L 337064) HIV AB/AG COMBO RFLX [id number] 00:00:00 Test Item Value Reference Range Interpretation Comments HIV 1/2 4TH GEN, RFLX CONF (test NON-REACTIVE code = 3514) HIV AB/AG COMBO RFLX [id number] 00:00:00 Test Item Value Reference Range Interpretation Comments HIV 1/2 4TH GEN, RFLX CONF (test NON-REACTIVE code = 3514) HEP B CORE TOTAL [id number] 00:00:00 Test Item Value Reference Range Interpretation Comments HEP B CORE TOTAL AB (test code = NON-REACTIVE 9) HEP B CORE TOTAL [id number] 00:00:00 Test Item Value Reference Range Interpretation Comments HEP B CORE TOTAL AB (test code = NON-REACTIVE 2729) HEP B CORE TOTAL [id number] 00:00:00 Test Item Value Reference Range Interpretation Comments HEP B CORE TOTAL AB (test code = NON-REACTIVE 2729) HEPATITIS Bs AB [id number] 00:00:00 Test Item Value Reference Range Interpretation Comments HEPATITIS Bs AB QUANT (test code 0.05 MIU/ML = 2738) HEPATITIS Bs AB [id number] 00:00:00 Test Item Value Reference Range Interpretation Comments HEPATITIS Bs AB QUANT (test code 0.05 MIU/ML = 2738) HEPATITIS Bs AB [id number] 00:00:00 Test Item Value Reference Range Interpretation Comments HEPATITIS Bs AB QUANT (test code 0.05 MIU/ML = 2738) MITOCHONDRIAL M2 [id number] 00:00:00 Test Item Value Reference Range Interpretation Comments MITOCHONDRIAL M2 AB (test code = 30.9 UNITS 4634) MITOCHONDRIAL M2 [id number] 00:00:00 Test Item Value Reference Range Interpretation Comments MITOCHONDRIAL M2 AB (test code = 30.9 UNITS 4634) ALKALINE PHOSPHATASE [id number] 00:00:00 Test Item Value Reference Range Interpretation Comments ALKALINE PHOSPHATASE (test code = 196 U/L 38551) ALK PHOS, LIVER 1% (test code = 37.3 % 85727) ALK PHOS, LIVER 1 ABS (test code = 73.1 U/L 73735) ALK PHOS, LIVER 2% (test code = 4.5 % 11854) ALK PHOS, LIVER 2 ABS (test code = 8.8 U/L 35968) ALK PHOS, BONE % (test code = 03363) 44.0 % ALK PHOS, BONE ABS (test code = 86.2 U/L 39167) ALK PHOS, INTESTINE % (test code = 14.2 % 85601) ALK PHOS, INTESTINE ABS (test code = 27.8 U/L 155005) ALK PHOS, PLACENTAL % (test code = 0.0 % 821914) ALK PHOS, PLACENTAL ABS (test code = 0.0 U/L 643494) ALKALINE PHOSPHATASE [id number] 00:00:00 Test Item Value Reference Range Interpretation Comments ALKALINE PHOSPHATASE (test code = 196 U/L 42889) ALK PHOS, LIVER 1% (test code = 37.3 % 05473) ALK PHOS, LIVER 1 ABS (test code = 73.1 U/L 77088) ALK PHOS, LIVER 2% (test code = 4.5 % 37270) ALK PHOS, LIVER 2 ABS (test code = 8.8 U/L 90776) ALK PHOS, BONE % (test code = 85073) 44.0 % ALK PHOS, BONE ABS (test code = 86.2 U/L 62423) ALK PHOS, INTESTINE % (test code = 14.2 % 45084) ALK PHOS, INTESTINE ABS (test code = 27.8 U/L 234043) ALK PHOS, PLACENTAL % (test code = 0.0 % 190148) ALK PHOS, PLACENTAL ABS (test code = 0.0 U/L 182504) ALKALINE PHOSPHATASE [id number] 00:00:00 Test Item Value Reference Range Interpretation Comments ALKALINE PHOSPHATASE (test code = 196 U/L 44833) ALK PHOS, LIVER 1% (test code = 37.3 % 08913) ALK PHOS, LIVER 1 ABS (test code = 73.1 U/L 13528) ALK PHOS, LIVER 2% (test code = 4.5 % 91220) ALK PHOS, LIVER 2 ABS (test code = 8.8 U/L 16310) ALK PHOS, BONE % (test code = 64100) 44.0 % ALK PHOS, BONE ABS (test code = 86.2 U/L 90304) ALK PHOS, INTESTINE % (test code = 14.2 % 42918) ALK PHOS, INTESTINE ABS (test code = 27.8 U/L 202370) ALK PHOS, PLACENTAL % (test code = 0.0 % 483846) ALK PHOS, PLACENTAL ABS (test code = 0.0 U/L 347161) HIV AB/AG COMBO RFLX [id number] 00:00:00 Test Item Value Reference Range Interpretation Comments HIV 1/2 4TH GEN, RFLX CONF (test NON-REACTIVE code = 3514) HIV AB/AG COMBO RFLX [id number] 00:00:00 Test Item Value Reference Range Interpretation Comments HIV 1/2 4TH GEN, RFLX CONF (test NON-REACTIVE code = 3514) HEP B CORE TOTAL [id number] 00:00:00 Test Item Value Reference Range Interpretation Comments HEP B CORE TOTAL AB (test code = NON-REACTIVE 2729) HEP B CORE TOTAL [id number] 00:00:00 Test Item Value Reference Range Interpretation Comments HEP B CORE TOTAL AB (test code = NON-REACTIVE 2729) HEP B CORE TOTAL [id number] 00:00:00 Test Item Value Reference Range Interpretation Comments HEP B CORE TOTAL AB (test code = NON-REACTIVE 2729) HEPATITIS Bs AB [id number] 00:00:00 Test Item Value Reference Range Interpretation Comments HEPATITIS Bs AB QUANT (test code 0.05 MIU/ML = 2738) HEPATITIS Bs AB [id number] 00:00:00 Test Item Value Reference Range Interpretation Comments HEPATITIS Bs AB QUANT (test code 0.05 MIU/ML = 2738) HEPATITIS Bs AB [id number] 00:00:00 Test Item Value Reference Range Interpretation Comments HEPATITIS Bs AB QUANT (test code 0.05 MIU/ML = 2738) MITOCHONDRIAL M2 [id number] 00:00:00 Test Item Value Reference Range Interpretation Comments MITOCHONDRIAL M2 AB (test code = 30.9 UNITS 4634) MITOCHONDRIAL M2 [id number] 00:00:00 Test Item Value Reference Range Interpretation Comments MITOCHONDRIAL M2 AB (test code = 30.9 UNITS 4634) ALKALINE PHOSPHATASE [id number] 00:00:00 Test Item Value Reference Range Interpretation Comments ALKALINE PHOSPHATASE (test code = 196 U/L 14325) ALK PHOS, LIVER 1% (test code = 37.3 % 81092) ALK PHOS, LIVER 1 ABS (test code = 73.1 U/L 75053) ALK PHOS, LIVER 2% (test code = 4.5 % 81917) ALK PHOS, LIVER 2 ABS (test code = 8.8 U/L 20084) ALK PHOS, BONE % (test code = 46475) 44.0 % ALK PHOS, BONE ABS (test code = 86.2 U/L 84178) ALK PHOS, INTESTINE % (test code = 14.2 % 96335) ALK PHOS, INTESTINE ABS (test code = 27.8 U/L 785447) ALK PHOS, PLACENTAL % (test code = 0.0 % 657261) ALK PHOS, PLACENTAL ABS (test code = 0.0 U/L 792984) ALKALINE PHOSPHATASE [id number] 00:00:00 Test Item Value Reference Range Interpretation Comments ALKALINE PHOSPHATASE (test code = 196 U/L 73814) ALK PHOS, LIVER 1% (test code = 37.3 % 01603) ALK PHOS, LIVER 1 ABS (test code = 73.1 U/L 58807) ALK PHOS, LIVER 2% (test code = 4.5 % 36456) ALK PHOS, LIVER 2 ABS (test code = 8.8 U/L 15084) ALK PHOS, BONE % (test code = 06576) 44.0 % ALK PHOS, BONE ABS (test code = 86.2 U/L 20345) ALK PHOS, INTESTINE % (test code = 14.2 % 79818) ALK PHOS, INTESTINE ABS (test code = 27.8 U/L 775906) ALK PHOS, PLACENTAL % (test code = 0.0 % 795138) ALK PHOS, PLACENTAL ABS (test code = 0.0 U/L 766918) ALKALINE PHOSPHATASE [id number] 00:00:00 Test Item Value Reference Range Interpretation Comments ALKALINE PHOSPHATASE (test code = 196 U/L 63634) ALK PHOS, LIVER 1% (test code = 37.3 % 07890) ALK PHOS, LIVER 1 ABS (test code = 73.1 U/L 49224) ALK PHOS, LIVER 2% (test code = 4.5 % 76162) ALK PHOS, LIVER 2 ABS (test code = 8.8 U/L 28975) ALK PHOS, BONE % (test code = 00782) 44.0 % ALK PHOS, BONE ABS (test code = 86.2 U/L 22871) ALK PHOS, INTESTINE % (test code = 14.2 % 75470) ALK PHOS, INTESTINE ABS (test code = 27.8 U/L 614012) ALK PHOS, PLACENTAL % (test code = 0.0 % 690710) ALK PHOS, PLACENTAL ABS (test code = 0.0 U/L 184641) HIV AB/AG COMBO RFLX [id number] 00:00:00 Test Item Value Reference Range Interpretation Comments HIV 1/2 4TH GEN, RFLX CONF (test NON-REACTIVE code = 3514) HIV AB/AG COMBO RFLX [id number] 00:00:00 Test Item Value Reference Range Interpretation Comments HIV 1/2 4TH GEN, RFLX CONF (test NON-REACTIVE code = 3514) HEP B CORE TOTAL [id number] 00:00:00 Test Item Value Reference Range Interpretation Comments HEP B CORE TOTAL AB (test code = NON-REACTIVE 2729) HEP B CORE TOTAL [id number] 00:00:00 Test Item Value Reference Range Interpretation Comments HEP B CORE TOTAL AB (test code = NON-REACTIVE 2729) HEP B CORE TOTAL [id number] 00:00:00 Test Item Value Reference Range Interpretation Comments HEP B CORE TOTAL AB (test code = NON-REACTIVE 272) HEPATITIS Bs AB [id number] 00:00:00 Test Item Value Reference Range Interpretation Comments HEPATITIS Bs AB QUANT (test code 0.05 MIU/ML = 2738) HEPATITIS Bs AB [id number] 00:00:00 Test Item Value Reference Range Interpretation Comments HEPATITIS Bs AB QUANT (test code 0.05 MIU/ML = 2738) HEPATITIS Bs AB [id number] 00:00:00 Test Item Value Reference Range Interpretation Comments HEPATITIS Bs AB QUANT (test code 0.05 MIU/ML = 2738) MITOCHONDRIAL M2 [id number] 00:00:00 Test Item Value Reference Range Interpretation Comments MITOCHONDRIAL M2 AB (test code = 30.9 UNITS 4634) MITOCHONDRIAL M2 [id number] 00:00:00 Test Item Value Reference Range Interpretation Comments MITOCHONDRIAL M2 AB (test code = 30.9 UNITS 4634) ALKALINE PHOSPHATASE [id number] 00:00:00 Test Item Value Reference Range Interpretation Comments ALKALINE PHOSPHATASE (test code = 196 U/L 19732) ALK PHOS, LIVER 1% (test code = 37.3 % 33362) ALK PHOS, LIVER 1 ABS (test code = 73.1 U/L 93646) ALK PHOS, LIVER 2% (test code = 4.5 % 45884) ALK PHOS, LIVER 2 ABS (test code = 8.8 U/L 83193) ALK PHOS, BONE % (test code = 85621) 44.0 % ALK PHOS, BONE ABS (test code = 86.2 U/L 23546) ALK PHOS, INTESTINE % (test code = 14.2 % 31804) ALK PHOS, INTESTINE ABS (test code = 27.8 U/L 029102) ALK PHOS, PLACENTAL % (test code = 0.0 % 231583) ALK PHOS, PLACENTAL ABS (test code = 0.0 U/L 529923) ALKALINE PHOSPHATASE [id number] 00:00:00 Test Item Value Reference Range Interpretation Comments ALKALINE PHOSPHATASE (test code = 196 U/L 47012) ALK PHOS, LIVER 1% (test code = 37.3 % 32126) ALK PHOS, LIVER 1 ABS (test code = 73.1 U/L 00128) ALK PHOS, LIVER 2% (test code = 4.5 % 46260) ALK PHOS, LIVER 2 ABS (test code = 8.8 U/L 30127) ALK PHOS, BONE % (test code = 68960) 44.0 % ALK PHOS, BONE ABS (test code = 86.2 U/L 77503) ALK PHOS, INTESTINE % (test code = 14.2 % 70510) ALK PHOS, INTESTINE ABS (test code = 27.8 U/L 279077) ALK PHOS, PLACENTAL % (test code = 0.0 % 126394) ALK PHOS, PLACENTAL ABS (test code = 0.0 U/L 720801) ALKALINE PHOSPHATASE [id number] 00:00:00 Test Item Value Reference Range Interpretation Comments ALKALINE PHOSPHATASE (test code = 196 U/L 19904) ALK PHOS, LIVER 1% (test code = 37.3 % 33195) ALK PHOS, LIVER 1 ABS (test code = 73.1 U/L 66197) ALK PHOS, LIVER 2% (test code = 4.5 % 55121) ALK PHOS, LIVER 2 ABS (test code = 8.8 U/L 85642) ALK PHOS, BONE % (test code = 03946) 44.0 % ALK PHOS, BONE ABS (test code = 86.2 U/L 51833) ALK PHOS, INTESTINE % (test code = 14.2 % 59574) ALK PHOS, INTESTINE ABS (test code = 27.8 U/L 958952) ALK PHOS, PLACENTAL % (test code = 0.0 % 805509) ALK PHOS, PLACENTAL ABS (test code = 0.0 U/L 221460) HIV AB/AG COMBO RFLX [id number] 00:00:00 Test Item Value Reference Range Interpretation Comments HIV 1/2 4TH GEN, RFLX CONF (test NON-REACTIVE code = 3514) HIV AB/AG COMBO RFLX [id number] 00:00:00 Test Item Value Reference Range Interpretation Comments HIV 1/2 4TH GEN, RFLX CONF (test NON-REACTIVE code = 3514) HEP B CORE TOTAL [id number] 00:00:00 Test Item Value Reference Range Interpretation Comments HEP B CORE TOTAL AB (test code = NON-REACTIVE 2729) SCR MAMM BILATERAL CAD [id number] 15:50:34 - SCR MAMM BILATERAL CAD DIGITALBILATERAL DIGITAL SCREENING MAMMOGRAM 3D/2D WITH CAD: 12/20/2018CLINICAL: Asymptomatic. Digital breast tomosynthesis was performed in addition to routine CC and MLO views. Current mammographic images were evaluated by either a [employer] M-Vu or a [employer] ImageChecker CAD (computer aided detection system). Comparison is made to exam dated 02/02/2012 mammogram - [facility]. The tissue of both breasts [...] dense breast tissue.Umang Valdez M.D. rb/:12/31/2018 15:50:34 Production Control Planner: Larissa Sanon MM, [facility] Mammographyletter sent: BIRADS 1-2 Normal Mammogram BI-RADS: 1 NegativeHCV RNA, PCR QUANT [REFLEX]2018-12-11 00:00:00 Test Item Value Reference Range Interpretation Comments HCV RNA, PCR QUANT (test code 26671563 IU/ML = 4571) HCV VIRAL LOG (test code = 7.013 LOGIU/ML 14110) HCV RNA, PCR QUANT [REFLEX]2018-12-11 00:00:00 Test Item Value Reference Range Interpretation Comments HCV RNA, PCR QUANT (test code 52330512 IU/ML = 4571) HCV VIRAL LOG (test code = 7.013 LOGIU/ML 51795) HCV RNA, PCR QUANT [REFLEX]2018-12-11 00:00:00 Test Item Value Reference Range Interpretation Comments HCV RNA, PCR QUANT (test code 60095553 IU/ML = 4571) HCV VIRAL LOG (test code = 7.013 LOGIU/ML 62109) HCV RNA, PCR QUANT [REFLEX]2018-12-11 00:00:00 Test Item Value Reference Range Interpretation Comments HCV RNA, PCR QUANT (test code 15209515 IU/ML = 4571) HCV VIRAL LOG (test code = 7.013 LOGIU/ML 40976) HCV RNA, PCR QUANT [REFLEX]2018-12-11 00:00:00 Test Item Value Reference Range Interpretation Comments HCV RNA, PCR QUANT (test code 10467502 IU/ML = 4571) HCV VIRAL LOG (test code = 7.013 LOGIU/ML 31102) HCV RNA, PCR QUANT [REFLEX]2018-12-11 00:00:00 Test Item Value Reference Range Interpretation Comments HCV RNA, PCR QUANT (test code 43600788 IU/ML = 4571) HCV VIRAL LOG (test code = 7.013 LOGIU/ML 21327) HCV RNA, PCR QUANT [REFLEX]2018-12-11 00:00:00 Test Item Value Reference Range Interpretation Comments HCV RNA, PCR QUANT (test code 22405381 IU/ML = 4571) HCV VIRAL LOG (test code = 7.013 LOGIU/ML 77154) HCV RNA, PCR QUANT [REFLEX]2018-12-11 00:00:00 Test Item Value Reference Range Interpretation Comments HCV RNA, PCR QUANT (test code 33423769 IU/ML = 4571) HCV VIRAL LOG (test code = 7.013 LOGIU/ML 38541) HCV RNA, PCR QUANT [REFLEX]2018-12-11 00:00:00 Test Item Value Reference Range Interpretation Comments HCV RNA, PCR QUANT (test code 04710713 IU/ML = 4571) HCV VIRAL LOG (test code = 7.013 LOGIU/ML 63253) HCV RNA, PCR QUANT [REFLEX]2018-12-11 00:00:00 Test Item Value Reference Range Interpretation Comments HCV RNA, PCR QUANT (test code 64971743 IU/ML = 4571) HCV VIRAL LOG (test code = 7.013 LOGIU/ML 87280) HCV RNA, PCR QUANT [REFLEX]2018-12-11 00:00:00 Test Item Value Reference Range Interpretation Comments HCV RNA, PCR QUANT (test code 11382429 IU/ML = 4571) HCV VIRAL LOG (test code = 7.013 LOGIU/ML 20067) HCV RNA, PCR QUANT [REFLEX]2018-12-11 00:00:00 Test Item Value Reference Range Interpretation Comments HCV RNA, PCR QUANT (test code 43878983 IU/ML = 4571) HCV VIRAL LOG (test code = 7.013 LOGIU/ML 99865) HCV RNA, PCR QUANT [REFLEX]2018-12-11 00:00:00 Test Item Value Reference Range Interpretation Comments HCV RNA, PCR QUANT (test code 13144662 IU/ML = 4571) HCV VIRAL LOG (test code = 7.013 LOGIU/ML 61763) HCV RNA, PCR QUANT [REFLEX]2018-12-11 00:00:00 Test Item Value Reference Range Interpretation Comments HCV RNA, PCR QUANT (test code 42661745 IU/ML = 4571) HCV VIRAL LOG (test code = 7.013 LOGIU/ML 52782) HCV RNA, PCR QUANT [REFLEX]2018-12-11 00:00:00 Test Item Value Reference Range Interpretation Comments HCV RNA, PCR QUANT (test code 64982633 IU/ML = 4571) HCV VIRAL LOG (test code = 7.013 LOGIU/ML 88868) HCV RNA, PCR QUANT [REFLEX]2018-12-11 00:00:00 Test Item Value Reference Range Interpretation Comments HCV RNA, PCR QUANT (test code 05554369 IU/ML = 4571) HCV VIRAL LOG (test code = 7.013 LOGIU/ML 02843) HCV RNA, PCR QUANT [REFLEX]2018-12-11 00:00:00 Test Item Value Reference Range Interpretation Comments HCV RNA, PCR QUANT (test code 20425962 IU/ML = 4571) HCV VIRAL LOG (test code = 7.013 LOGIU/ML 31769) HEPATITIS C REFLEX [id number] 00:00:00 Test Item Value Reference Range Interpretation Comments HEPATITIS C ANTIBODY (test code = REACTIVE 4675) HCV INDEX (test code = 40701) 14.84 HEPATITIS C REFLEX [id number] 00:00:00 Test Item Value Reference Range Interpretation Comments HEPATITIS C ANTIBODY (test code = REACTIVE 4675) HCV INDEX (test code = 83593) 14.84 HEPATITIS C REFLEX [id number] 00:00:00 Test Item Value Reference Range Interpretation Comments HEPATITIS C ANTIBODY (test code = REACTIVE 4675) HCV INDEX (test code = 07497) 14.84 HEPATITIS C REFLEX [id number] 00:00:00 Test Item Value Reference Range Interpretation Comments HEPATITIS C ANTIBODY (test code = REACTIVE 4675) HCV INDEX (test code = 21978) 14.84 HEPATITIS C REFLEX [id number] 00:00:00 Test Item Value Reference Range Interpretation Comments HEPATITIS C ANTIBODY (test code = REACTIVE 4675) HCV INDEX (test code = 85840) 14.84 HEPATITIS C REFLEX [id number] 00:00:00 Test Item Value Reference Range Interpretation Comments HEPATITIS C ANTIBODY (test code = REACTIVE 4675) HCV INDEX (test code = 69915) 14.84 HEPATITIS C REFLEX [id number] 00:00:00 Test Item Value Reference Range Interpretation Comments HEPATITIS C ANTIBODY (test code = REACTIVE 4675) HCV INDEX (test code = 15528) 14.84 HEPATITIS C REFLEX [id number] 00:00:00 Test Item Value Reference Range Interpretation Comments HEPATITIS C ANTIBODY (test code = REACTIVE 4675) HCV INDEX (test code = 46228) 14.84 HEPATITIS C REFLEX [id number] 00:00:00 Test Item Value Reference Range Interpretation Comments HEPATITIS C ANTIBODY (test code = REACTIVE 4675) HCV INDEX (test code = 18348) 14.84 HEPATITIS C REFLEX [id number] 00:00:00 Test Item Value Reference Range Interpretation Comments HEPATITIS C ANTIBODY (test code = REACTIVE 4675) HCV INDEX (test code = 86144) 14.84 HEPATITIS C REFLEX [id number] 00:00:00 Test Item Value Reference Range Interpretation Comments HEPATITIS C ANTIBODY (test code = REACTIVE 4675) HCV INDEX (test code = 56247) 14.84 ACUTE HEPATITIS [id number] 00:00:00 Test Item Value Reference Range Interpretation Comments HEPATITIS A IgM (test code = NON-REACTIVE 95940) HEPATITIS B CORE IgM (test code NON-REACTIVE = 4644) HEPATITIS B SURF AG (test code = NON-REACTIVE 8469) HEPATITIS C ANTIBODY (test code REACTIVE = 4675) HCV INDEX (test code = 38322) 13.68 INTERPRETATION HEPATITIS A: (NOTE) (test code = 2552) INTERPRETATION HEPATITIS B: (NOTE) (test code = 91784) INTERPRETATION HEPATITIS C: (NOTE) (test code = 34043) COMPREHENSIVE METABOLIC [id number] 00:00:00 Test Item Value Reference Range Interpretation Comments GLUCOSE (test code = 2217) 109 MG/DL BUN (test code = 2208) 15 MG/DL CREATININE (test code = 2214) 0.69 MG/DL eGFR AMER. (test code 115 ML/MIN/1.73 = 45024) eGFR NON- AMER. (test 99 ML/MIN/1.73 code = 93960) CALC BUN/CREAT (test code = 22 RATIO [...] BILIRUBIN, TOTAL (test code = 0.6 MG/DL 220) ALKALINE PHOSPHATASE (test 209 U/L code = 2204) AST (test code = 2218) 16 U/L ALT (test code = 2219) 17 U/L CBC W/AUTO [id number] 00:00:00 Test Item Value Reference Range Interpretation [...] code = 1015) 145 K/UL CBC W/AUTO [id number] 00:00:00 Test Item Value Reference Range Interpretation [...] COUNT (test code = 1015) 145 K/UL [id number] 00:00:00 Test Item Value Reference Range Interpretation Comments TSH, THIRD GENERATION (test code 2.110 UIU/ML = 2821) [id number] 00:00:00 Test Item Value Reference Range Interpretation Comments TSH, THIRD GENERATION (test code 2.110 UIU/ML = 2821) [id number] 00:00:00 Test Item Value Reference Range Interpretation Comments GGT (test code = 2216) 25 U/L ACUTE HEPATITIS [id number] 00:00:00 Test Item Value Reference Range Interpretation Comments HEPATITIS A IgM (test code = NON-REACTIVE 78443) HEPATITIS B CORE IgM (test code NON-REACTIVE = 4644) HEPATITIS B SURF AG (test code = NON-REACTIVE 2739) HEPATITIS C ANTIBODY (test code REACTIVE = 4675) HCV INDEX (test code = 57600) 13.68 INTERPRETATION HEPATITIS A: (NOTE) (test code = 2552) INTERPRETATION HEPATITIS B: (NOTE) (test code = 44079) INTERPRETATION HEPATITIS C: (NOTE) (test code = 23400) ACUTE HEPATITIS [id number] 00:00:00 Test Item Value Reference Range Interpretation Comments HEPATITIS A IgM (test code = NON-REACTIVE 94254) HEPATITIS B CORE IgM (test code NON-REACTIVE = 4644) HEPATITIS B SURF AG (test code = NON-REACTIVE 0189) HEPATITIS C ANTIBODY (test code REACTIVE = 4675) HCV INDEX (test code = 00324) 13.68 INTERPRETATION HEPATITIS A: (NOTE) (test code = 2552) INTERPRETATION HEPATITIS B: (NOTE) (test code = 12366) INTERPRETATION HEPATITIS C: (NOTE) (test code = 47779) COMPREHENSIVE METABOLIC [id number] 00:00:00 Test Item Value Reference Range Interpretation Comments GLUCOSE (test code = 2217) 109 MG/DL BUN (test code = 2208) 15 MG/DL CREATININE (test code = 2214) 0.69 MG/DL eGFR AMER. (test code 115 ML/MIN/1.73 = 71251) eGFR NON- AMER. (test 99 ML/MIN/1.73 code = 19964) CALC BUN/CREAT (test code = 22 RATIO [...] BILIRUBIN, TOTAL (test code = 0.6 MG/DL 220) ALKALINE PHOSPHATASE (test 209 U/L code = 2204) AST (test code = 2218) 16 U/L ALT (test code = 2219) 17 U/L COMPREHENSIVE METABOLIC [id number] 00:00:00 Test Item Value Reference Range Interpretation Comments GLUCOSE (test code = 2217) 109 MG/DL BUN (test code = 2208) 15 MG/DL CREATININE (test code = 2214) 0.69 MG/DL eGFR AMER. (test code 115 ML/MIN/1.73 = 49811) eGFR NON- AMER. (test 99 ML/MIN/1.73 code = 56657) CALC BUN/CREAT (test code = 22 RATIO [...] code = 2219) 17 U/L CBC W/AUTO [id number] 00:00:00 Test Item Value Reference Range Interpretation [...] code = 1015) 145 K/UL CBC W/AUTO [id number] 00:00:00 Test Item Value Reference Range Interpretation [...] code = 1015) 145 K/UL CBC W/AUTO [id number] 00:00:00 Test Item Value Reference Range Interpretation [...] COUNT (test code = 1015) 145 K/UL [id number] 00:00:00 Test Item Value Reference Range Interpretation Comments TSH, THIRD GENERATION (test code 2.110 UIU/ML = 2821) [id number] 00:00:00 Test Item Value Reference Range Interpretation Comments TSH, THIRD GENERATION (test code 2.110 UIU/ML = 2821) [id number] 00:00:00 Test Item Value Reference Range Interpretation Comments TSH, THIRD GENERATION (test code 2.110 UIU/ML = 2821) [id number] 00:00:00 Test Item Value Reference Range Interpretation Comments GGT (test code = 2216) 25 U/L [id number] 00:00:00 Test Item Value Reference Range Interpretation Comments GGT (test code = 2216) 25 U/L ACUTE HEPATITIS [id number] 00:00:00 Test Item Value Reference Range Interpretation Comments HEPATITIS A IgM (test code = NON-REACTIVE 36526) HEPATITIS B CORE IgM (test code NON-REACTIVE = 4644) HEPATITIS B SURF AG (test code = NON-REACTIVE 2739) HEPATITIS C ANTIBODY (test code REACTIVE = 4675) HCV INDEX (test code = 73203) 13.68 INTERPRETATION HEPATITIS A: (NOTE) (test code = 2552) INTERPRETATION HEPATITIS B: (NOTE) (test code = 47774) INTERPRETATION HEPATITIS C: (NOTE) (test code = 78952) ACUTE HEPATITIS [id number] 00:00:00 Test Item Value Reference Range Interpretation Comments HEPATITIS A IgM (test code = NON-REACTIVE 78620) HEPATITIS B CORE IgM (test code NON-REACTIVE = 4644) HEPATITIS B SURF AG (test code = NON-REACTIVE 2739) HEPATITIS C ANTIBODY (test code REACTIVE = 4675) HCV INDEX (test code = 21094) 13.68 INTERPRETATION HEPATITIS A: (NOTE) (test code = 2552) INTERPRETATION HEPATITIS B: (NOTE) (test code = 16893) INTERPRETATION HEPATITIS C: (NOTE) (test code = 15130) COMPREHENSIVE METABOLIC [id number] 00:00:00 Test Item Value Reference Range Interpretation Comments GLUCOSE (test code = 2217) 109 MG/DL BUN (test code = 2208) 15 MG/DL CREATININE (test code = 2214) 0.69 MG/DL eGFR AMER. (test code 115 ML/MIN/1.73 = 55642) eGFR NON- AMER. (test 99 ML/MIN/1.73 code = 03387) CALC BUN/CREAT (test code = 22 RATIO [...] code = 2219) 17 U/L COMPREHENSIVE METABOLIC [id number] 00:00:00 Test Item Value Reference Range Interpretation Comments GLUCOSE (test code = 2217) 109 MG/DL BUN (test code = 2208) 15 MG/DL CREATININE (test code = 2214) 0.69 MG/DL eGFR AMER. (test code 115 ML/MIN/1.73 = 47001) eGFR NON- AMER. (test 99 ML/MIN/1.73 code = 95372) CALC BUN/CREAT (test code = 22 RATIO [...] code = 2219) 17 U/L CBC W/AUTO [id number] 00:00:00 Test Item Value Reference Range Interpretation [...] code = 1015) 145 K/UL CBC W/AUTO [id number] 00:00:00 Test Item Value Reference Range Interpretation [...] code = 1015) 145 K/UL CBC W/AUTO [id number] 00:00:00 Test Item Value Reference Range Interpretation [...] COUNT (test code = 1015) 145 K/UL [id number] 00:00:00 Test Item Value Reference Range Interpretation Comments TSH, THIRD GENERATION (test code 2.110 UIU/ML = 2821) [id number] 00:00:00 Test Item Value Reference Range Interpretation Comments TSH, THIRD GENERATION (test code 2.110 UIU/ML = 2821) [id number] 00:00:00 Test Item Value Reference Range Interpretation Comments TSH, THIRD GENERATION (test code 2.110 UIU/ML = 2821) [id number] 00:00:00 Test Item Value Reference Range Interpretation Comments GGT (test code = 2216) 25 U/L [id number] 00:00:00 Test Item Value Reference Range Interpretation Comments GGT (test code = 2216) 25 U/L ACUTE HEPATITIS [id number] 00:00:00 Test Item Value Reference Range Interpretation Comments HEPATITIS A IgM (test code = NON-REACTIVE 65514) HEPATITIS B CORE IgM (test code NON-REACTIVE = 4644) HEPATITIS B SURF AG (test code = NON-REACTIVE 2739) HEPATITIS C ANTIBODY (test code REACTIVE = 4675) HCV INDEX (test code = 14477) 13.68 INTERPRETATION HEPATITIS A: (NOTE) (test code = 2552) INTERPRETATION HEPATITIS B: (NOTE) (test code = 43088) INTERPRETATION HEPATITIS C: (NOTE) (test code = 78324) ACUTE HEPATITIS [id number] 00:00:00 Test Item Value Reference Range Interpretation Comments HEPATITIS A IgM (test code = NON-REACTIVE 02409) HEPATITIS B CORE IgM (test code NON-REACTIVE = 4644) HEPATITIS B SURF AG (test code = NON-REACTIVE 2739) HEPATITIS C ANTIBODY (test code REACTIVE = 4675) HCV INDEX (test code = 84957) 13.68 INTERPRETATION HEPATITIS A: (NOTE) (test code = 2552) INTERPRETATION HEPATITIS B: (NOTE) (test code = 75866) INTERPRETATION HEPATITIS C: (NOTE) (test code = 64676) COMPREHENSIVE METABOLIC [id number] 00:00:00 Test Item Value Reference Range Interpretation Comments GLUCOSE (test code = 2217) 109 MG/DL BUN (test code = 2208) 15 MG/DL CREATININE (test code = 2214) 0.69 MG/DL eGFR AMER. (test code 115 ML/MIN/1.73 = 07765) eGFR NON- AMER. (test 99 ML/MIN/1.73 code = 28013) CALC BUN/CREAT (test code = 22 RATIO [...] code = 2219) 17 U/L COMPREHENSIVE METABOLIC [id number] 00:00:00 Test Item Value Reference Range Interpretation Comments GLUCOSE (test code = 2217) 109 MG/DL BUN (test code = 2208) 15 MG/DL CREATININE (test code = 2214) 0.69 MG/DL eGFR AMER. (test code 115 ML/MIN/1.73 = 36119) eGFR NON- AMER. (test 99 ML/MIN/1.73 code = 14730) CALC BUN/CREAT (test code = 22 RATIO [...] code = 2219) 17 U/L CBC W/AUTO [id number] 00:00:00 Test Item Value Reference Range Interpretation [...] code = 1015) 145 K/UL CBC W/AUTO [id number] 00:00:00 Test Item Value Reference Range Interpretation [...] code = 1015) 145 K/UL CBC W/AUTO [id number] 00:00:00 Test Item Value Reference Range Interpretation [...] COUNT (test code = 1015) 145 K/UL [id number] 00:00:00 Test Item Value Reference Range Interpretation Comments TSH, THIRD GENERATION (test code 2.110 UIU/ML = 2821) [id number] 00:00:00 Test Item Value Reference Range Interpretation Comments TSH, THIRD GENERATION (test code 2.110 UIU/ML = 2821) [id number] 00:00:00 Test Item Value Reference Range Interpretation Comments TSH, THIRD GENERATION (test code 2.110 UIU/ML = 2821) [id number] 00:00:00 Test Item Value Reference Range Interpretation Comments GGT (test code = 2216) 25 U/L [id number] 00:00:00 Test Item Value Reference Range Interpretation Comments GGT (test code = 2216) 25 U/L ACUTE HEPATITIS [id number] 00:00:00 Test Item Value Reference Range Interpretation Comments HEPATITIS A IgM (test code = NON-REACTIVE 85198) HEPATITIS B CORE IgM (test code NON-REACTIVE = 4644) HEPATITIS B SURF AG (test code = NON-REACTIVE 2739) HEPATITIS C ANTIBODY (test code REACTIVE = 4675) HCV INDEX (test code = 19429) 13.68 INTERPRETATION HEPATITIS A: (NOTE) (test code = 2552) INTERPRETATION HEPATITIS B: (NOTE) (test code = 39205) INTERPRETATION HEPATITIS C: (NOTE) (test code = 84047) ACUTE HEPATITIS [id number] 00:00:00 Test Item Value Reference Range Interpretation Comments HEPATITIS A IgM (test code = NON-REACTIVE 83108) HEPATITIS B CORE IgM (test code NON-REACTIVE = 4644) HEPATITIS B SURF AG (test code = NON-REACTIVE 2739) HEPATITIS C ANTIBODY (test code REACTIVE = 4675) HCV INDEX (test code = 58291) 13.68 INTERPRETATION HEPATITIS A: (NOTE) (test code = 2552) INTERPRETATION HEPATITIS B: (NOTE) (test code = 06035) INTERPRETATION HEPATITIS C: (NOTE) (test code = 43693) COMPREHENSIVE METABOLIC [id number] 00:00:00 Test Item Value Reference Range Interpretation Comments GLUCOSE (test code = 2217) 109 MG/DL BUN (test code = 2208) 15 MG/DL CREATININE (test code = 2214) 0.69 MG/DL eGFR AMER. (test code 115 ML/MIN/1.73 = 67893) eGFR NON- AMER. (test 99 ML/MIN/1.73 code = 70190) CALC BUN/CREAT (test code = 22 RATIO [...] code = 2219) 17 U/L COMPREHENSIVE METABOLIC [id number] 00:00:00 Test Item Value Reference Range Interpretation Comments GLUCOSE (test code = 2217) 109 MG/DL BUN (test code = 2208) 15 MG/DL CREATININE (test code = 2214) 0.69 MG/DL eGFR AMER. (test code 115 ML/MIN/1.73 = 74148) eGFR NON- AMER. (test 99 ML/MIN/1.73 code = 24124) CALC BUN/CREAT (test code = 22 RATIO [...] code = 2219) 17 U/L CBC W/AUTO [id number] 00:00:00 Test Item Value Reference Range Interpretation [...] code = 1015) 145 K/UL CBC W/AUTO [id number] 00:00:00 Test Item Value Reference Range Interpretation [...] code = 1015) 145 K/UL CBC W/AUTO [id number] 00:00:00 Test Item Value Reference Range Interpretation [...] COUNT (test code = 1015) 145 K/UL [id number] 00:00:00 Test Item Value Reference Range Interpretation Comments TSH, THIRD GENERATION (test code 2.110 UIU/ML = 2821) [id number] 00:00:00 Test Item Value Reference Range Interpretation Comments TSH, THIRD GENERATION (test code 2.110 UIU/ML = 2821) [id number] 00:00:00 Test Item Value Reference Range Interpretation Comments TSH, THIRD GENERATION (test code 2.110 UIU/ML = 2821) [id number] 00:00:00 Test Item Value Reference Range Interpretation Comments GGT (test code = 2216) 25 U/L [id number] 00:00:00 Test Item Value Reference Range Interpretation Comments GGT (test code = 2216) 25 U/L ACUTE HEPATITIS [id number] 00:00:00 Test Item Value Reference Range Interpretation Comments HEPATITIS A IgM (test code = NON-REACTIVE 13558) HEPATITIS B CORE IgM (test code NON-REACTIVE = 4644) HEPATITIS B SURF AG (test code = NON-REACTIVE 5009) HEPATITIS C ANTIBODY (test code REACTIVE = 4675) HCV INDEX (test code = 72613) 13.68 INTERPRETATION HEPATITIS A: (NOTE) (test code = 2552) INTERPRETATION HEPATITIS B: (NOTE) (test code = 42908) INTERPRETATION HEPATITIS C: (NOTE) (test code = 04563) ACUTE HEPATITIS [id number] 00:00:00 Test Item Value Reference Range Interpretation Comments HEPATITIS A IgM (test code = NON-REACTIVE 03033) HEPATITIS B CORE IgM (test code NON-REACTIVE = 4644) HEPATITIS B SURF AG (test code = NON-REACTIVE 3869) HEPATITIS C ANTIBODY (test code REACTIVE = 4675) HCV INDEX (test code = 00577) 13.68 INTERPRETATION HEPATITIS A: (NOTE) (test code = 2552) INTERPRETATION HEPATITIS B: (NOTE) (test code = 33144) INTERPRETATION HEPATITIS C: (NOTE) (test code = 07596) COMPREHENSIVE METABOLIC [id number] 00:00:00 Test Item Value Reference Range Interpretation Comments GLUCOSE (test code = 2217) 109 MG/DL BUN (test code = 2208) 15 MG/DL CREATININE (test code = 2214) 0.69 MG/DL eGFR AMER. (test code 115 ML/MIN/1.73 = 59908) eGFR NON- AMER. (test 99 ML/MIN/1.73 code = 95172) CALC BUN/CREAT (test code = 22 RATIO [...] code = 2219) 17 U/L COMPREHENSIVE METABOLIC [id number] 00:00:00 Test Item Value Reference Range Interpretation Comments GLUCOSE (test code = 2217) 109 MG/DL BUN (test code = 2208) 15 MG/DL CREATININE (test code = 2214) 0.69 MG/DL eGFR AMER. (test code 115 ML/MIN/1.73 = 37502) eGFR NON- AMER. (test 99 ML/MIN/1.73 code = 49130) CALC BUN/CREAT (test code = 22 RATIO [...] code = 2219) 17 U/L CBC W/AUTO [id number] 00:00:00 Test Item Value Reference Range Interpretation [...] code = 1015) 145 K/UL CBC W/AUTO [id number] 00:00:00 Test Item Value Reference Range Interpretation [...] code = 1015) 145 K/UL CBC W/AUTO [id number] 00:00:00 Test Item Value Reference Range Interpretation [...] COUNT (test code = 1015) 145 K/UL [id number] 00:00:00 Test Item Value Reference Range Interpretation Comments TSH, THIRD GENERATION (test code 2.110 UIU/ML = 2821) [id number] 00:00:00 Test Item Value Reference Range Interpretation Comments TSH, THIRD GENERATION (test code 2.110 UIU/ML = 2821) [id number] 00:00:00 Test Item Value Reference Range Interpretation Comments TSH, THIRD GENERATION (test code 2.110 UIU/ML = 2821) [id number] 00:00:00 Test Item Value Reference Range Interpretation Comments GGT (test code = 2216) 25 U/L [id number] 00:00:00 Test Item Value Reference Range Interpretation Comments GGT (test code = 2216) 25 U/L LIPID [id number] 00:00:00 Test Item Value Reference Range Interpretation Comments CHOLESTEROL (test code = 2210) 146 MG/DL TRIGLYCERIDES (test code = 2232) 248 MG/DL HDL CHOLESTEROL (test code = 2220) 27 MG/DL CALC LDL CHOL (test code = 2237) 69 MG/DL RISK RATIO LDL/HDL (test code = 2.57 RATIO 2238) COMPREHENSIVE METABOLIC [id number] 00:00:00 Test Item Value Reference Range Interpretation Comments GLUCOSE (test code = 2217) 100 MG/DL BUN (test code = 2208) 11 MG/DL CREATININE (test code = 2214) 0.72 MG/DL eGFR AMER. (test code 111 ML/MIN/1.73 = 98652) eGFR NON- AMER. (test 96 ML/MIN/1.73 code = 30212) CALC BUN/CREAT (test code = 15 RATIO [...] (test code = 2219) 25 U/L HEMOGLOBIN [id number] 00:00:00 Test Item Value Reference Range Interpretation Comments HEMOGLOBIN A1c (test code = 90285) 5.5 % HEMOGLOBIN [id number] 00:00:00 Test Item Value Reference Range Interpretation Comments HEMOGLOBIN A1c (test code = 86506) 5.5 % HEMOGLOBIN [id number] 00:00:00 Test Item Value Reference Range Interpretation Comments HEMOGLOBIN A1c (test code = 93108) 5.5 % LIPID [id number] 00:00:00 Test Item Value Reference Range Interpretation Comments CHOLESTEROL (test code = 2210) 146 MG/DL TRIGLYCERIDES (test code = 2232) 248 MG/DL HDL CHOLESTEROL (test code = 2220) 27 MG/DL CALC LDL CHOL (test code = 2237) 69 MG/DL RISK RATIO LDL/HDL (test code = 2.57 RATIO 2238) LIPID [id number] 00:00:00 Test Item Value Reference Range Interpretation Comments CHOLESTEROL (test code = 2210) 146 MG/DL TRIGLYCERIDES (test code = 2232) 248 MG/DL HDL CHOLESTEROL (test code = 2220) 27 MG/DL CALC LDL CHOL (test code = 2237) 69 MG/DL RISK RATIO LDL/HDL (test code = 2.57 RATIO 2238) COMPREHENSIVE METABOLIC [id number] 00:00:00 Test Item Value Reference Range Interpretation Comments GLUCOSE (test code = 2217) 100 MG/DL BUN (test code = 2208) 11 MG/DL CREATININE (test code = 2214) 0.72 MG/DL eGFR AMER. (test code 111 ML/MIN/1.73 = 98824) eGFR NON- AMER. (test 96 ML/MIN/1.73 code = 30763) CALC BUN/CREAT (test code = 15 RATIO [...] code = 2219) 25 U/L COMPREHENSIVE METABOLIC [id number] 00:00:00 Test Item Value Reference Range Interpretation Comments GLUCOSE (test code = 2217) 100 MG/DL BUN (test code = 2208) 11 MG/DL CREATININE (test code = 2214) 0.72 MG/DL eGFR AMER. (test code 111 ML/MIN/1.73 = 44787) eGFR NON- AMER. (test 96 ML/MIN/1.73 code = 05542) CALC BUN/CREAT (test code = 15 RATIO [...] (test code = 2219) 25 U/L HEMOGLOBIN [id number] 00:00:00 Test Item Value Reference Range Interpretation Comments HEMOGLOBIN A1c (test code = 04461) 5.5 % HEMOGLOBIN [id number] 00:00:00 Test Item Value Reference Range Interpretation Comments HEMOGLOBIN A1c (test code = 91071) 5.5 % HEMOGLOBIN [id number] 00:00:00 Test Item Value Reference Range Interpretation Comments HEMOGLOBIN A1c (test code = 97360) 5.5 % LIPID [id number] 00:00:00 Test Item Value Reference Range Interpretation Comments CHOLESTEROL (test code = 2210) 146 MG/DL TRIGLYCERIDES (test code = 2232) 248 MG/DL HDL CHOLESTEROL (test code = 2220) 27 MG/DL CALC LDL CHOL (test code = 2237) 69 MG/DL RISK RATIO LDL/HDL (test code = 2.57 RATIO 2238) LIPID [id number] 00:00:00 Test Item Value Reference Range Interpretation Comments CHOLESTEROL (test code = 2210) 146 MG/DL TRIGLYCERIDES (test code = 2232) 248 MG/DL HDL CHOLESTEROL (test code = 2220) 27 MG/DL CALC LDL CHOL (test code = 2237) 69 MG/DL RISK RATIO LDL/HDL (test code = 2.57 RATIO 2238) COMPREHENSIVE METABOLIC [id number] 00:00:00 Test Item Value Reference Range Interpretation Comments GLUCOSE (test code = 2217) 100 MG/DL BUN (test code = 2208) 11 MG/DL CREATININE (test code = 2214) 0.72 MG/DL eGFR AMER. (test code 111 ML/MIN/1.73 = 95053) eGFR NON- AMER. (test 96 ML/MIN/1.73 code = 80524) CALC BUN/CREAT (test code = 15 RATIO [...] code = 2219) 25 U/L COMPREHENSIVE METABOLIC [id number] 00:00:00 Test Item Value Reference Range Interpretation Comments GLUCOSE (test code = 2217) 100 MG/DL BUN (test code = 2208) 11 MG/DL CREATININE (test code = 2214) 0.72 MG/DL eGFR AMER. (test code 111 ML/MIN/1.73 = 71278) eGFR NON- AMER. (test 96 ML/MIN/1.73 code = 02239) CALC BUN/CREAT (test code = 15 RATIO [...] (test code = 2219) 25 U/L HEMOGLOBIN [id number] 00:00:00 Test Item Value Reference Range Interpretation Comments HEMOGLOBIN A1c (test code = 31686) 5.5 % HEMOGLOBIN [id number] 00:00:00 Test Item Value Reference Range Interpretation Comments HEMOGLOBIN A1c (test code = 34868) 5.5 % HEMOGLOBIN [id number] 00:00:00 Test Item Value Reference Range Interpretation Comments HEMOGLOBIN A1c (test code = 40694) 5.5 % LIPID [id number] 00:00:00 Test Item Value Reference Range Interpretation Comments CHOLESTEROL (test code = 2210) 146 MG/DL TRIGLYCERIDES (test code = 2232) 248 MG/DL HDL CHOLESTEROL (test code = 2220) 27 MG/DL CALC LDL CHOL (test code = 2237) 69 MG/DL RISK RATIO LDL/HDL (test code = 2.57 RATIO 2238) LIPID [id number] 00:00:00 Test Item Value Reference Range Interpretation Comments CHOLESTEROL (test code = 2210) 146 MG/DL TRIGLYCERIDES (test code = 2232) 248 MG/DL HDL CHOLESTEROL (test code = 2220) 27 MG/DL CALC LDL CHOL (test code = 2237) 69 MG/DL RISK RATIO LDL/HDL (test code = 2.57 RATIO 2238) COMPREHENSIVE METABOLIC [id number] 00:00:00 Test Item Value Reference Range Interpretation Comments GLUCOSE (test code = 2217) 100 MG/DL BUN (test code = 2208) 11 MG/DL CREATININE (test code = 2214) 0.72 MG/DL eGFR AMER. (test code 111 ML/MIN/1.73 = 72606) eGFR NON- AMER. (test 96 ML/MIN/1.73 code = 82948) CALC BUN/CREAT (test code = 15 RATIO [...] code = 2219) 25 U/L COMPREHENSIVE METABOLIC [id number] 00:00:00 Test Item Value Reference Range Interpretation Comments GLUCOSE (test code = 2217) 100 MG/DL BUN (test code = 2208) 11 MG/DL CREATININE (test code = 2214) 0.72 MG/DL eGFR AMER. (test code 111 ML/MIN/1.73 = 89139) eGFR NON- AMER. (test 96 ML/MIN/1.73 code = 80473) CALC BUN/CREAT (test code = 15 RATIO [...] (test code = 2219) 25 U/L HEMOGLOBIN [id number] 00:00:00 Test Item Value Reference Range Interpretation Comments HEMOGLOBIN A1c (test code = 90160) 5.5 % HEMOGLOBIN [id number] 00:00:00 Test Item Value Reference Range Interpretation Comments HEMOGLOBIN A1c (test code = 01832) 5.5 % HEMOGLOBIN [id number] 00:00:00 Test Item Value Reference Range Interpretation Comments HEMOGLOBIN A1c (test code = 85185) 5.5 % LIPID [id number] 00:00:00 Test Item Value Reference Range Interpretation Comments CHOLESTEROL (test code = 2210) 146 MG/DL TRIGLYCERIDES (test code = 2232) 248 MG/DL HDL CHOLESTEROL (test code = 2220) 27 MG/DL CALC LDL CHOL (test code = 2237) 69 MG/DL RISK RATIO LDL/HDL (test code = 2.57 RATIO 2238) LIPID [id number] 00:00:00 Test Item Value Reference Range Interpretation Comments CHOLESTEROL (test code = 2210) 146 MG/DL TRIGLYCERIDES (test code = 2232) 248 MG/DL HDL CHOLESTEROL (test code = 2220) 27 MG/DL CALC LDL CHOL (test code = 2237) 69 MG/DL RISK RATIO LDL/HDL (test code = 2.57 RATIO 2238) COMPREHENSIVE METABOLIC [id number] 00:00:00 Test Item Value Reference Range Interpretation Comments GLUCOSE (test code = 2217) 100 MG/DL BUN (test code = 2208) 11 MG/DL CREATININE (test code = 2214) 0.72 MG/DL eGFR AMER. (test code 111 ML/MIN/1.73 = 31653) eGFR NON- AMER. (test 96 ML/MIN/1.73 code = 46090) CALC BUN/CREAT (test code = 15 RATIO [...] code = 2219) 25 U/L COMPREHENSIVE METABOLIC [id number] 00:00:00 Test Item Value Reference Range Interpretation Comments GLUCOSE (test code = 2217) 100 MG/DL BUN (test code = 2208) 11 MG/DL CREATININE (test code = 2214) 0.72 MG/DL eGFR AMER. (test code 111 ML/MIN/1.73 = 31420) eGFR NON- AMER. (test 96 ML/MIN/1.73 code = 52233) CALC BUN/CREAT (test code = 15 RATIO [...] (test code = 2219) 25 U/L HEMOGLOBIN [id number] 00:00:00 Test Item Value Reference Range Interpretation Comments HEMOGLOBIN A1c (test code = 34477) 5.5 % HEMOGLOBIN [id number] 00:00:00 Test Item Value Reference Range Interpretation Comments HEMOGLOBIN A1c (test code = 65632) 5.5 % HEMOGLOBIN [id number] 00:00:00 Test Item Value Reference Range Interpretation Comments HEMOGLOBIN A1c (test code = 20701) 5.5 % LIPID [id number] 00:00:00 Test Item Value Reference Range Interpretation Comments CHOLESTEROL (test code = 2210) 146 MG/DL TRIGLYCERIDES (test code = 2232) 248 MG/DL HDL CHOLESTEROL (test code = 2220) 27 MG/DL CALC LDL CHOL (test code = 2237) 69 MG/DL RISK RATIO LDL/HDL (test code = 2.57 RATIO 2238) LIPID [id number] 00:00:00 Test Item Value Reference Range Interpretation Comments CHOLESTEROL (test code = 2210) 146 MG/DL TRIGLYCERIDES (test code = 2232) 248 MG/DL HDL CHOLESTEROL (test code = 2220) 27 MG/DL CALC LDL CHOL (test code = 2237) 69 MG/DL RISK RATIO LDL/HDL (test code = 2.57 RATIO 2238) COMPREHENSIVE METABOLIC [id number] 00:00:00 Test Item Value Reference Range Interpretation Comments GLUCOSE (test code = 2217) 100 MG/DL BUN (test code = 2208) 11 MG/DL CREATININE (test code = 2214) 0.72 MG/DL eGFR AMER. (test code 111 ML/MIN/1.73 = 73325) eGFR NON- AMER. (test 96 ML/MIN/1.73 code = 59716) CALC BUN/CREAT (test code = 15 RATIO [...] CALC GLOBULIN (test code = 2.7 G/DL 0) CALC A/G RATIO (test code = 1.8 RATIO 4) BILIRUBIN, TOTAL (test code = 0.8 MG/DL 2206) ALKALINE PHOSPHATASE (test 218 U/L code = 2204) AST (test code = 2218) 22 U/L ALT (test code = 2219) 25 U/L COMPREHENSIVE METABOLIC [id number] 00:00:00 Test Item Value Reference Range Interpretation Comments GLUCOSE (test code = 2217) 100 MG/DL BUN (test code = 2208) 11 MG/DL CREATININE (test code = 2214) 0.72 MG/DL eGFR AMER. (test code 111 ML/MIN/1.73 = 08316) eGFR NON- AMER. (test 96 ML/MIN/1.73 code = 95559) CALC BUN/CREAT (test code = 15 RATIO [...] (test code = 2219) 25 U/L HEMOGLOBIN [id number] 00:00:00 Test Item Value Reference Range Interpretation Comments HEMOGLOBIN A1c (test code = 13917) 5.5 % HEMOGLOBIN [id number] 00:00:00 Test Item Value Reference Range Interpretation Comments HEMOGLOBIN A1c (test code = 02843) 5.5 % PAP TEST, THINPREP, [id number] 00:00:00 Test Item Value Reference Range Interpretation Comments SOURCE: (test code = Cervical/Endocervical 8001) SLIDES: (test code = 1 8011) LMP: (test code = SEE NOTE 8021) SPECIMEN ADEQUACY: (NOTE) (test code = 36278) INTERPRETATION: (test NO EPITHELIAL code = 10708) ABNORMALITY SEE BELOW BLUE LINE TRIMMER: Laure (test code = 8101) CHANEL Eaton(ASCP)IAC LOCATION: (test code (NOTE) = 14633) CPT: (test code = (NOTE) 8140) PAP TEST, THINPREP, [id number] 00:00:00 Test Item Value Reference Range Interpretation Comments SOURCE: (test code = Cervical/Endocervical 8001) SLIDES: (test code = 1 8011) LMP: (test code = SEE NOTE 8021) SPECIMEN ADEQUACY: (NOTE) (test code = 92708) INTERPRETATION: (test NO EPITHELIAL code = 14999) ABNORMALITY SEE BELOW BLUE LINE TRIMMER: Laure (test code = 8101) CHANEL Eaton(ASCP)IAC LOCATION: (test code (NOTE) = 89934) CPT: (test code = (NOTE) 8140) PAP TEST, THINPREP, [id number] 00:00:00 Test Item Value Reference Range Interpretation Comments SOURCE: (test code = Cervical/Endocervical 8001) SLIDES: (test code = 1 8011) LMP: (test code = SEE NOTE 8021) SPECIMEN ADEQUACY: (NOTE) (test code = 74137) INTERPRETATION: (test NO EPITHELIAL code = 08404) ABNORMALITY SEE BELOW BLUE LINE TRIMMER: Laure (test code = 8101) [place],CT(ASCP)IAC LOCATION: (test code (NOTE) = 85180) CPT: (test code = (NOTE) 8140) PAP TEST, THINPREP, [id number] 00:00:00 Test Item Value Reference Range Interpretation Comments SOURCE: (test code = Cervical/Endocervical 8001) SLIDES: (test code = 1 8011) LMP: (test code = SEE NOTE 8021) SPECIMEN ADEQUACY: (NOTE) (test code = 71619) INTERPRETATION: (test NO EPITHELIAL code = 78889) ABNORMALITY SEE BELOW BLUE LINE TRIMMER: Laure (test code = 8101) [place],CT(ASCP)IAC LOCATION: (test code (NOTE) = 27848) CPT: (test code = (NOTE) 8140) PAP TEST, THINPREP, [id number] 00:00:00 Test Item Value Reference Range Interpretation Comments SOURCE: (test code = Cervical/Endocervical 8001) SLIDES: (test code = 1 8011) LMP: (test code = SEE NOTE 8021) SPECIMEN ADEQUACY: (NOTE) (test code = 03533) INTERPRETATION: (test NO EPITHELIAL code = 42951) ABNORMALITY SEE BELOW BLUE LINE TRIMMER: Laure (test code = 8101) [place],CT(ASCP)IAC LOCATION: (test code (NOTE) = 25804) CPT: (test code = (NOTE) 8140) PAP TEST, THINPREP, [id number] 00:00:00 Test Item Value Reference Range Interpretation Comments SOURCE: (test code = Cervical/Endocervical 8001) SLIDES: (test code = 1 8011) LMP: (test code = SEE NOTE 8021) SPECIMEN ADEQUACY: (NOTE) (test code = 69901) INTERPRETATION: (test NO EPITHELIAL code = 37381) ABNORMALITY SEE BELOW BLUE LINE TRIMMER: Laure (test code = 8101) [place](ASCP)IAC LOCATION: (test code (NOTE) = 78894) CPT: (test code = (NOTE) 8140) PAP TEST, THINPREP, [id number] 00:00:00 Test Item Value Reference Range Interpretation Comments SOURCE: (test code = Cervical/Endocervical 8001) SLIDES: (test code = 1 8011) LMP: (test code = SEE NOTE 8021) SPECIMEN ADEQUACY: (NOTE) (test code = 03394) INTERPRETATION: (test NO EPITHELIAL code = 42667) ABNORMALITY SEE BELOW BLUE LINE TRIMMER: Laure (test code = 8101) [place],CT(ASCP)IAC LOCATION: (test code (NOTE) = 08426) CPT: (test code = (NOTE) 8140) PAP TEST, THINPREP, [id number] 00:00:00 Test Item Value Reference Range Interpretation Comments SOURCE: (test code = Cervical/Endocervical 8001) SLIDES: (test code = 1 8011) LMP: (test code = SEE NOTE 8021) SPECIMEN ADEQUACY: (NOTE) (test code = 80467) INTERPRETATION: (test NO EPITHELIAL code = 32554) ABNORMALITY SEE BELOW BLUE LINE TRIMMER: Laure (test code = 8101) [place],CT(ASCP)IAC LOCATION: (test code (NOTE) = 64699) CPT: (test code = (NOTE) 8140) PAP TEST, THINPREP, [id number] 00:00:00 Test Item Value Reference Range Interpretation Comments SOURCE: (test code = Cervical/Endocervical 8001) SLIDES: (test code = 1 8011) LMP: (test code = SEE NOTE 8021) SPECIMEN ADEQUACY: (NOTE) (test code = 72920) INTERPRETATION: (test NO EPITHELIAL code = 67286) ABNORMALITY SEE BELOW BLUE LINE TRIMMER: Laure (test code = 8101) [place],CT(ASCP)IAC LOCATION: (test code (NOTE) = 73523) CPT: (test code = (NOTE) 8140) PAP TEST, THINPREP, [id number] 00:00:00 Test Item Value Reference Range Interpretation Comments SOURCE: (test code = Cervical/Endocervical 8001) SLIDES: (test code = 1 8011) LMP: (test code = SEE NOTE 8021) SPECIMEN ADEQUACY: (NOTE) (test code = 88858) INTERPRETATION: (test NO EPITHELIAL code = 23109) ABNORMALITY SEE BELOW BLUE LINE TRIMMER: Laure (test code = 8101) [place],CT(ASCP)IAC LOCATION: (test code (NOTE) = 32044) CPT: (test code = (NOTE) 8140) PAP TEST, THINPREP, [id number] 00:00:00 Test Item Value Reference Range Interpretation Comments SOURCE: (test code = Cervical/Endocervical 8001) SLIDES: (test code = 1 8011) LMP: (test code = SEE NOTE 8021) SPECIMEN ADEQUACY: (NOTE) (test code = 00729) INTERPRETATION: (test NO EPITHELIAL code = 04883) ABNORMALITY SEE BELOW BLUE LINE TRIMMER: Laure (test code = 8101) [place],CT(ASCP)IAC LOCATION: (test code (NOTE) = 17285) CPT: (test code = (NOTE) 8140) HPV HIGH RISK WITH GENOTYPE, [id number] 00:00:00 Test Item Value Reference Range Interpretation Comments HPV HIGH RISK INTERP (test code = NEGATIVE 53871) HPV 16 (test code = 91750) NEGATIVE HPV 18 (test code = 92601) NEGATIVE HPV, HR, OTHER GENOTYPES (test code NEGATIVE = 03251) HPV HIGH RISK WITH GENOTYPE, [id number] 00:00:00 Test Item Value Reference Range Interpretation Comments HPV HIGH RISK INTERP (test code = NEGATIVE 20373) HPV 16 (test code = 48198) NEGATIVE HPV 18 (test code = 50532) NEGATIVE HPV, HR, OTHER GENOTYPES (test code NEGATIVE = 89350) HPV HIGH RISK WITH GENOTYPE, [id number] 00:00:00 Test Item Value Reference Range Interpretation Comments HPV HIGH RISK INTERP (test code = NEGATIVE 78116) HPV 16 (test code = 21208) NEGATIVE HPV 18 (test code = 70352) NEGATIVE HPV, HR, OTHER GENOTYPES (test code NEGATIVE = 23559) HPV HIGH RISK WITH GENOTYPE, [id number] 00:00:00 Test Item Value Reference Range Interpretation Comments HPV HIGH RISK INTERP (test code = NEGATIVE 30318) HPV 16 (test code = 18473) NEGATIVE HPV 18 (test code = 15417) NEGATIVE HPV, HR, OTHER GENOTYPES (test code NEGATIVE = 49954) HPV HIGH RISK WITH GENOTYPE, [id number] 00:00:00 Test Item Value Reference Range Interpretation Comments HPV HIGH RISK INTERP (test code = NEGATIVE 06041) HPV 16 (test code = 40109) NEGATIVE HPV 18 (test code = 01880) NEGATIVE HPV, HR, OTHER GENOTYPES (test code NEGATIVE = 80177) HPV HIGH RISK WITH GENOTYPE, [id number] 00:00:00 Test Item Value Reference Range Interpretation Comments HPV HIGH RISK INTERP (test code = NEGATIVE 02564) HPV 16 (test code = 59764) NEGATIVE HPV 18 (test code = 15749) NEGATIVE HPV, HR, OTHER GENOTYPES (test code NEGATIVE = 54214) HPV HIGH RISK WITH GENOTYPE, [id number] 00:00:00 Test Item Value Reference Range Interpretation Comments HPV HIGH RISK INTERP (test code = NEGATIVE 74442) HPV 16 (test code = 57497) NEGATIVE HPV 18 (test code = 73209) NEGATIVE HPV, HR, OTHER GENOTYPES (test code NEGATIVE = 50760) HPV HIGH RISK WITH GENOTYPE, [id number] 00:00:00 Test Item Value Reference Range Interpretation Comments HPV HIGH RISK INTERP (test code = NEGATIVE 06571) HPV 16 (test code = 82421) NEGATIVE HPV 18 (test code = 40734) NEGATIVE HPV, HR, OTHER GENOTYPES (test code NEGATIVE = 42088) HPV HIGH RISK WITH GENOTYPE, [id number] 00:00:00 Test Item Value Reference Range Interpretation Comments HPV HIGH RISK INTERP (test code = NEGATIVE 12929) HPV 16 (test code = 50759) NEGATIVE HPV 18 (test code = 72414) NEGATIVE HPV, HR, OTHER GENOTYPES (test code NEGATIVE = 69960) HPV HIGH RISK WITH GENOTYPE, [id number] 00:00:00 Test Item Value Reference Range Interpretation Comments HPV HIGH RISK INTERP (test code = NEGATIVE 74676) HPV 16 (test code = 22604) NEGATIVE HPV 18 (test code = 67185) NEGATIVE HPV, HR, OTHER GENOTYPES (test code NEGATIVE = 90994) HPV HIGH RISK WITH GENOTYPE, [id number] 00:00:00 Test Item Value Reference Range Interpretation Comments HPV HIGH RISK INTERP (test code = NEGATIVE 16305) HPV 16 (test code = 97278) NEGATIVE HPV 18 (test code = 81033) NEGATIVE HPV, HR, OTHER GENOTYPES (test code NEGATIVE = 19315) CBC W/AUTO [id number] 00:00:00 Test Item Value Reference Range Interpretation [...] code = 1015) 164 K/UL CBC W/AUTO [id number] 00:00:00 Test Item Value Reference Range Interpretation [...] code = 1015) 164 K/UL COMPREHENSIVE METABOLIC [id number] 00:00:00 Test Item Value Reference Range Interpretation Comments GLUCOSE (test code = 2217) 95 MG/DL BUN (test code = 2208) 19 MG/DL CREATININE (test code = 2214) 0.62 MG/DL eGFR AMER. (test code 121 ML/MIN/1.73 = 31916) eGFR NON- AMER. (test 104 ML/MIN/1.73 code = 92742) CALC BUN/CREAT (test code = 31 RATIO [...] A/G RATIO (test code = 1.4 RATIO 223) BILIRUBIN, TOTAL (test code = 0.5 MG/DL 2206) ALKALINE PHOSPHATASE (test 153 U/L code = 2204) AST (test code = 2218) 19 U/L ALT (test code = 2219) 20 U/L LIPID [id number] 00:00:00 Test Item Value Reference Range Interpretation [...] (test code = 2821) 1.0 UIU/ML HEMOGLOBIN [id number] 00:00:00 Test Item Value Reference Range Interpretation Comments HEMOGLOBIN A1c (test code = 07298) 5.6 % HEMOGLOBIN [id number] 00:00:00 Test Item Value Reference Range Interpretation Comments HEMOGLOBIN A1c (test code = 97050) 5.6 % HEMOGLOBIN [id number] 00:00:00 Test Item Value Reference Range Interpretation Comments HEMOGLOBIN A1c (test code = 63825) 5.6 % CBC W/AUTO [id number] 00:00:00 Test Item Value Reference Range Interpretation [...] code = 1015) 164 K/UL CBC W/AUTO [id number] 00:00:00 Test Item Value Reference Range Interpretation [...] code = 1015) 164 K/UL CBC W/AUTO [id number] 00:00:00 Test Item Value Reference Range Interpretation [...] code = 1015) 164 K/UL COMPREHENSIVE METABOLIC [id number] 00:00:00 Test Item Value Reference Range Interpretation Comments GLUCOSE (test code = 2217) 95 MG/DL BUN (test code = 2208) 19 MG/DL CREATININE (test code = 2214) 0.62 MG/DL eGFR AMER. (test code 121 ML/MIN/1.73 = 96661) eGFR NON- AMER. (test 104 ML/MIN/1.73 code = 84249) CALC BUN/CREAT (test code = 31 RATIO [...] code = 2219) 20 U/L COMPREHENSIVE METABOLIC [id number] 00:00:00 Test Item Value Reference Range Interpretation Comments GLUCOSE (test code = 2217) 95 MG/DL BUN (test code = 2208) 19 MG/DL CREATININE (test code = 2214) 0.62 MG/DL eGFR AMER. (test code 121 ML/MIN/1.73 = 42752) eGFR NON- AMER. (test 104 ML/MIN/1.73 code = 79942) CALC BUN/CREAT (test code = 31 RATIO [...] (test code = 2219) 20 U/L LIPID [id number] 00:00:00 Test Item Value Reference Range Interpretation Comments CHOLESTEROL (test code = 2210) 175 MG/DL TRIGLYCERIDES (test code = 2232) 107 MG/DL HDL CHOLESTEROL (test code = 2220) 44 MG/DL CALC LDL CHOL (test code = 2237) 110 MG/DL RISK RATIO LDL/HDL (test code = 2.49 RATIO 2238) LIPID [id number] 00:00:00 Test Item Value Reference Range Interpretation [...] (test code = 2821) 1.0 UIU/ML HEMOGLOBIN [id number] 00:00:00 Test Item Value Reference Range Interpretation Comments HEMOGLOBIN A1c (test code = 59370) 5.6 % HEMOGLOBIN [id number] 00:00:00 Test Item Value Reference Range Interpretation Comments HEMOGLOBIN A1c (test code = 19278) 5.6 % HEMOGLOBIN [id number] 00:00:00 Test Item Value Reference Range Interpretation Comments HEMOGLOBIN A1c (test code = 39381) 5.6 % CBC W/AUTO [id number] 00:00:00 Test Item Value Reference Range Interpretation [...] code = 1015) 164 K/UL CBC W/AUTO [id number] 00:00:00 Test Item Value Reference Range Interpretation [...] code = 1015) 164 K/UL CBC W/AUTO [id number] 00:00:00 Test Item Value Reference Range Interpretation [...] code = 1015) 164 K/UL COMPREHENSIVE METABOLIC [id number] 00:00:00 Test Item Value Reference Range Interpretation Comments GLUCOSE (test code = 2217) 95 MG/DL BUN (test code = 2208) 19 MG/DL CREATININE (test code = 2214) 0.62 MG/DL eGFR AMER. (test code 121 ML/MIN/1.73 = 05979) eGFR NON- AMER. (test 104 ML/MIN/1.73 code = 58047) CALC BUN/CREAT (test code = 31 RATIO [...] code = 2219) 20 U/L COMPREHENSIVE METABOLIC [id number] 00:00:00 Test Item Value Reference Range Interpretation Comments GLUCOSE (test code = 2217) 95 MG/DL BUN (test code = 2208) 19 MG/DL CREATININE (test code = 2214) 0.62 MG/DL eGFR AMER. (test code 121 ML/MIN/1.73 = 89782) eGFR NON- AMER. (test 104 ML/MIN/1.73 code = 92220) CALC BUN/CREAT (test code = 31 RATIO [...] (test code = 2219) 20 U/L LIPID [id number] 00:00:00 Test Item Value Reference Range Interpretation Comments CHOLESTEROL (test code = 2210) 175 MG/DL TRIGLYCERIDES (test code = 2232) 107 MG/DL HDL CHOLESTEROL (test code = 2220) 44 MG/DL CALC LDL CHOL (test code = 2237) 110 MG/DL RISK RATIO LDL/HDL (test code = 2.49 RATIO 2238) LIPID [id number] 00:00:00 Test Item Value Reference Range Interpretation [...] (test code = 2821) 1.0 UIU/ML HEMOGLOBIN [id number] 00:00:00 Test Item Value Reference Range Interpretation Comments HEMOGLOBIN A1c (test code = 58508) 5.6 % HEMOGLOBIN [id number] 00:00:00 Test Item Value Reference Range Interpretation Comments HEMOGLOBIN A1c (test code = 49446) 5.6 % HEMOGLOBIN [id number] 00:00:00 Test Item Value Reference Range Interpretation Comments HEMOGLOBIN A1c (test code = 22009) 5.6 % CBC W/AUTO [id number] 00:00:00 Test Item Value Reference Range Interpretation [...] code = 1015) 164 K/UL CBC W/AUTO [id number] 00:00:00 Test Item Value Reference Range Interpretation [...] code = 1015) 164 K/UL CBC W/AUTO [id number] 00:00:00 Test Item Value Reference Range Interpretation [...] code = 1015) 164 K/UL COMPREHENSIVE METABOLIC [id number] 00:00:00 Test Item Value Reference Range Interpretation Comments GLUCOSE (test code = 2217) 95 MG/DL BUN (test code = 2208) 19 MG/DL CREATININE (test code = 2214) 0.62 MG/DL eGFR AMER. (test code 121 ML/MIN/1.73 = 08134) eGFR NON- AMER. (test 104 ML/MIN/1.73 code = 47022) CALC BUN/CREAT (test code = 31 RATIO [...] code = 2219) 20 U/L COMPREHENSIVE METABOLIC [id number] 00:00:00 Test Item Value Reference Range Interpretation Comments GLUCOSE (test code = 2217) 95 MG/DL BUN (test code = 2208) 19 MG/DL CREATININE (test code = 2214) 0.62 MG/DL eGFR AMER. (test code 121 ML/MIN/1.73 = 09438) eGFR NON- AMER. (test 104 ML/MIN/1.73 code = 78273) CALC BUN/CREAT (test code = 31 RATIO [...] (test code = 2219) 20 U/L LIPID [id number] 00:00:00 Test Item Value Reference Range Interpretation Comments CHOLESTEROL (test code = 2210) 175 MG/DL TRIGLYCERIDES (test code = 2232) 107 MG/DL HDL CHOLESTEROL (test code = 2220) 44 MG/DL CALC LDL CHOL (test code = 2237) 110 MG/DL RISK RATIO LDL/HDL (test code = 2.49 RATIO 2238) LIPID [id number] 00:00:00 Test Item Value Reference Range Interpretation [...] (test code = 2821) 1.0 UIU/ML HEMOGLOBIN [id number] 00:00:00 Test Item Value Reference Range Interpretation Comments HEMOGLOBIN A1c (test code = 50320) 5.6 % HEMOGLOBIN [id number] 00:00:00 Test Item Value Reference Range Interpretation Comments HEMOGLOBIN A1c (test code = 74282) 5.6 % HEMOGLOBIN [id number] 00:00:00 Test Item Value Reference Range Interpretation Comments HEMOGLOBIN A1c (test code = 57851) 5.6 % CBC W/AUTO [id number] 00:00:00 Test Item Value Reference Range Interpretation [...] code = 1015) 164 K/UL CBC W/AUTO [id number] 00:00:00 Test Item Value Reference Range Interpretation [...] code = 1015) 164 K/UL CBC W/AUTO [id number] 00:00:00 Test Item Value Reference Range Interpretation [...] code = 1015) 164 K/UL COMPREHENSIVE METABOLIC [id number] 00:00:00 Test Item Value Reference Range Interpretation Comments GLUCOSE (test code = 2217) 95 MG/DL BUN (test code = 2208) 19 MG/DL CREATININE (test code = 2214) 0.62 MG/DL eGFR AMER. (test code 121 ML/MIN/1.73 = 48392) eGFR NON- AMER. (test 104 ML/MIN/1.73 code = 43077) CALC BUN/CREAT (test code = 31 RATIO [...] code = 2219) 20 U/L COMPREHENSIVE METABOLIC [id number] 00:00:00 Test Item Value Reference Range Interpretation Comments GLUCOSE (test code = 2217) 95 MG/DL BUN (test code = 2208) 19 MG/DL CREATININE (test code = 2214) 0.62 MG/DL eGFR AMER. (test code 121 ML/MIN/1.73 = 13960) eGFR NON- AMER. (test 104 ML/MIN/1.73 code = 56641) CALC BUN/CREAT (test code = 31 RATIO [...] (test code = 2219) 20 U/L LIPID [id number] 00:00:00 Test Item Value Reference Range Interpretation Comments CHOLESTEROL (test code = 2210) 175 MG/DL TRIGLYCERIDES (test code = 2232) 107 MG/DL HDL CHOLESTEROL (test code = 2220) 44 MG/DL CALC LDL CHOL (test code = 2237) 110 MG/DL RISK RATIO LDL/HDL (test code = 2.49 RATIO 2238) LIPID [id number] 00:00:00 Test Item Value Reference Range Interpretation [...] (test code = 2821) 1.0 UIU/ML HEMOGLOBIN [id number] 00:00:00 Test Item Value Reference Range Interpretation Comments HEMOGLOBIN A1c (test code = 05689) 5.6 % HEMOGLOBIN [id number] 00:00:00 Test Item Value Reference Range Interpretation Comments HEMOGLOBIN A1c (test code = 45641) 5.6 % HEMOGLOBIN [id number] 00:00:00 Test Item Value Reference Range Interpretation Comments HEMOGLOBIN A1c (test code = 14089) 5.6 % CBC W/AUTO [id number] 00:00:00 Test Item Value Reference Range Interpretation [...] code = 1015) 164 K/UL CBC W/AUTO [id number] 00:00:00 Test Item Value Reference Range Interpretation [...] (test code = 1015) 164 K/UL HEMOGLOBIN [id number] 00:00:00 Test Item Value Reference Range Interpretation Comments HEMOGLOBIN A1c (test code = 76932) 5.6 % CBC W/AUTO [id number] 00:00:00 Test Item Value Reference Range Interpretation [...] code = 1015) 164 K/UL COMPREHENSIVE METABOLIC [id number] 00:00:00 Test Item Value Reference Range Interpretation Comments GLUCOSE (test code = 2217) 95 MG/DL BUN (test code = 2208) 19 MG/DL CREATININE (test code = 2214) 0.62 MG/DL eGFR AMER. (test code 121 ML/MIN/1.73 = 54363) eGFR NON- AMER. (test 104 ML/MIN/1.73 code = 93824) CALC BUN/CREAT (test code = 31 RATIO [...] code = 2219) 20 U/L COMPREHENSIVE METABOLIC [id number] 00:00:00 Test Item Value Reference Range Interpretation Comments GLUCOSE (test code = 2217) 95 MG/DL BUN (test code = 2208) 19 MG/DL CREATININE (test code = 2214) 0.62 MG/DL eGFR AMER. (test code 121 ML/MIN/1.73 = 87814) eGFR NON- AMER. (test 104 ML/MIN/1.73 code = 82537) CALC BUN/CREAT (test code = 31 RATIO [...] (test code = 2219) 20 U/L LIPID [id number] 00:00:00 Test Item Value Reference Range Interpretation Comments CHOLESTEROL (test code = 2210) 175 MG/DL TRIGLYCERIDES (test code = 2232) 107 MG/DL HDL CHOLESTEROL (test code = 2220) 44 MG/DL CALC LDL CHOL (test code = 2237) 110 MG/DL RISK RATIO LDL/HDL (test code = 2.49 RATIO 2238) LIPID [id number] 00:00:00 Test Item Value Reference Range Interpretation [...] Interpretation Comments T3 UPTAKE (test code = 281) 28.7 % T4 (THYROXINE) (test code = [...] (test code = 2821) 1.0 UIU/ML HEMOGLOBIN [id number] 00:00:00 Test Item Value Reference Range Interpretation Comments HEMOGLOBIN A1c (test code = 92585) 5.6 % COMPREHENSIVE METABOLIC [id number] 00:00:00 Test Item Value Reference Range Interpretation Comments GLUCOSE (test code = 2217) 103 MG/DL BUN (test code = 2208) 16 MG/DL CREATININE (test code = 2214) 0.77 MG/DL eGFR AMER. (test code 104 ML/MIN/1.73 = 85589) eGFR NON- AMER. (test 90 ML/MIN/1.73 code = 33447) CALCULATED BUN/CREAT (test 21 RATIO code = [...] (test code = 2219) 19 U/L LIPID [id number] 00:00:00 Test Item Value Reference Range Interpretation Comments CHOLESTEROL (test code = 2210) 158 MG/DL TRIGLYCERIDES (test code = 2232) 111 MG/DL HDL CHOLESTEROL (test code = 2220) 40 MG/DL CALCULATED LDL CHOL (test code = 96 MG/DL 7) RISK RATIO LDL/HDL (test code = 2.40 RATIO 2238) CBC W/AUTO [id number] 00:00:00 Test Item Value Reference Range Interpretation [...] code = 1015) 135 K/UL CBC W/AUTO [id number] 00:00:00 Test Item Value Reference Range Interpretation [...] (test code = 1015) 135 K/UL HEMOGLOBIN [id number] 00:00:00 Test Item Value Reference Range Interpretation Comments HEMOGLOBIN A1c (test code = 59874) 5.7 % HEMOGLOBIN [id number] 00:00:00 Test Item Value Reference Range Interpretation Comments HEMOGLOBIN A1c (test code = 11255) 5.7 % [id number] 00:00:00 Test Item Value Reference Range Interpretation Comments TSH (test code = 2821) 0.2 UIU/ML [id number] 00:00:00 Test Item Value Reference Range Interpretation Comments TSH (test code = 2821) 0.2 UIU/ML COMPREHENSIVE METABOLIC [id number] 00:00:00 Test Item Value Reference Range Interpretation Comments GLUCOSE (test code = 2217) 103 MG/DL BUN (test code = 2208) 16 MG/DL CREATININE (test code = 2214) 0.77 MG/DL eGFR AMER. (test code 104 ML/MIN/1.73 = 25646) eGFR NON- AMER. (test 90 ML/MIN/1.73 code = 09878) CALCULATED BUN/CREAT (test 21 RATIO code = [...] code = 2219) 19 U/L COMPREHENSIVE METABOLIC [id number] 00:00:00 Test Item Value Reference Range Interpretation Comments GLUCOSE (test code = 2217) 103 MG/DL BUN (test code = 2208) 16 MG/DL CREATININE (test code = 2214) 0.77 MG/DL eGFR AMER. (test code 104 ML/MIN/1.73 = 47009) eGFR NON- AMER. (test 90 ML/MIN/1.73 code = 73900) CALCULATED BUN/CREAT (test 21 RATIO code = [...] (test code = 2219) 19 U/L LIPID [id number] 00:00:00 Test Item Value Reference Range Interpretation Comments CHOLESTEROL (test code = 2210) 158 MG/DL TRIGLYCERIDES (test code = 2232) 111 MG/DL HDL CHOLESTEROL (test code = 2220) 40 MG/DL CALCULATED LDL CHOL (test code = 96 MG/DL 2237) RISK RATIO LDL/HDL (test code = 2.40 RATIO 2238) LIPID [id number] 00:00:00 Test Item Value Reference Range Interpretation Comments CHOLESTEROL (test code = 2210) 158 MG/DL TRIGLYCERIDES (test code = 2232) 111 MG/DL HDL CHOLESTEROL (test code = 2220) 40 MG/DL CALCULATED LDL CHOL (test code = 96 MG/DL 2237) RISK RATIO LDL/HDL (test code = 2.40 RATIO 2238) CBC W/AUTO [id number] 00:00:00 Test Item Value Reference Range Interpretation [...] code = 1015) 135 K/UL CBC W/AUTO [id number] 00:00:00 Test Item Value Reference Range Interpretation [...] code = 1015) 135 K/UL CBC W/AUTO [id number] 00:00:00 Test Item Value Reference Range Interpretation [...] (test code = 1015) 135 K/UL HEMOGLOBIN [id number] 00:00:00 Test Item Value Reference Range Interpretation Comments HEMOGLOBIN A1c (test code = 16170) 5.7 % HEMOGLOBIN [id number] 00:00:00 Test Item Value Reference Range Interpretation Comments HEMOGLOBIN A1c (test code = 12010) 5.7 % HEMOGLOBIN [id number] 00:00:00 Test Item Value Reference Range Interpretation Comments HEMOGLOBIN A1c (test code = 06491) 5.7 % [id number] 00:00:00 Test Item Value Reference Range Interpretation Comments TSH (test code = 2821) 0.2 UIU/ML [id number] 00:00:00 Test Item Value Reference Range Interpretation Comments TSH (test code = 2821) 0.2 UIU/ML [id number] 00:00:00 Test Item Value Reference Range Interpretation Comments TSH (test code = 2821) 0.2 UIU/ML COMPREHENSIVE METABOLIC [id number] 00:00:00 Test Item Value Reference Range Interpretation Comments GLUCOSE (test code = 2217) 103 MG/DL BUN (test code = 2208) 16 MG/DL CREATININE (test code = 2214) 0.77 MG/DL eGFR AMER. (test code 104 ML/MIN/1.73 = 66506) eGFR NON- AMER. (test 90 ML/MIN/1.73 code = 24281) CALCULATED BUN/CREAT (test 21 RATIO code = [...] code = 2219) 19 U/L COMPREHENSIVE METABOLIC [id number] 00:00:00 Test Item Value Reference Range Interpretation Comments GLUCOSE (test code = 2217) 103 MG/DL BUN (test code = 2208) 16 MG/DL CREATININE (test code = 2214) 0.77 MG/DL eGFR AMER. (test code 104 ML/MIN/1.73 = 79376) eGFR NON- AMER. (test 90 ML/MIN/1.73 code = 92744) CALCULATED BUN/CREAT (test 21 RATIO code = [...] (test code = 2219) 19 U/L LIPID [id number] 00:00:00 Test Item Value Reference Range Interpretation Comments CHOLESTEROL (test code = 2210) 158 MG/DL TRIGLYCERIDES (test code = 2232) 111 MG/DL HDL CHOLESTEROL (test code = 2220) 40 MG/DL CALCULATED LDL CHOL (test code = 96 MG/DL 2236) RISK RATIO LDL/HDL (test code = 2.40 RATIO 2238) LIPID [id number] 00:00:00 Test Item Value Reference Range Interpretation Comments CHOLESTEROL (test code = 2210) 158 MG/DL TRIGLYCERIDES (test code = 2232) 111 MG/DL HDL CHOLESTEROL (test code = 2220) 40 MG/DL CALCULATED LDL CHOL (test code = 96 MG/DL 2236) RISK RATIO LDL/HDL (test code = 2.40 RATIO 2238) CBC W/AUTO [id number] 00:00:00 Test Item Value Reference Range Interpretation [...] code = 1015) 135 K/UL CBC W/AUTO [id number] 00:00:00 Test Item Value Reference Range Interpretation [...] code = 1015) 135 K/UL CBC W/AUTO [id number] 00:00:00 Test Item Value Reference Range Interpretation [...] (test code = 1015) 135 K/UL HEMOGLOBIN [id number] 00:00:00 Test Item Value Reference Range Interpretation Comments HEMOGLOBIN A1c (test code = 19398) 5.7 % HEMOGLOBIN [id number] 00:00:00 Test Item Value Reference Range Interpretation Comments HEMOGLOBIN A1c (test code = 97769) 5.7 % HEMOGLOBIN [id number] 00:00:00 Test Item Value Reference Range Interpretation Comments HEMOGLOBIN A1c (test code = 60786) 5.7 % [id number] 00:00:00 Test Item Value Reference Range Interpretation Comments TSH (test code = 2821) 0.2 UIU/ML [id number] 00:00:00 Test Item Value Reference Range Interpretation Comments TSH (test code = 2821) 0.2 UIU/ML [id number] 00:00:00 Test Item Value Reference Range Interpretation Comments TSH (test code = 2821) 0.2 UIU/ML COMPREHENSIVE METABOLIC [id number] 00:00:00 Test Item Value Reference Range Interpretation Comments GLUCOSE (test code = 2217) 103 MG/DL BUN (test code = 2208) 16 MG/DL CREATININE (test code = 2214) 0.77 MG/DL eGFR AMER. (test code 104 ML/MIN/1.73 = 67914) eGFR NON- AMER. (test 90 ML/MIN/1.73 code = 78074) CALCULATED BUN/CREAT (test 21 RATIO code = [...] code = 2219) 19 U/L COMPREHENSIVE METABOLIC [id number] 00:00:00 Test Item Value Reference Range Interpretation Comments GLUCOSE (test code = 2217) 103 MG/DL BUN (test code = 2208) 16 MG/DL CREATININE (test code = 2214) 0.77 MG/DL eGFR AMER. (test code 104 ML/MIN/1.73 = 69825) eGFR NON- AMER. (test 90 ML/MIN/1.73 code = 27360) CALCULATED BUN/CREAT (test 21 RATIO code = [...] (test code = 2219) 19 U/L LIPID [id number] 00:00:00 Test Item Value Reference Range Interpretation Comments CHOLESTEROL (test code = 2210) 158 MG/DL TRIGLYCERIDES (test code = 2232) 111 MG/DL HDL CHOLESTEROL (test code = 2220) 40 MG/DL CALCULATED LDL CHOL (test code = 96 MG/DL 2237) RISK RATIO LDL/HDL (test code = 2.40 RATIO 2238) LIPID [id number] 00:00:00 Test Item Value Reference Range Interpretation Comments CHOLESTEROL (test code = 2210) 158 MG/DL TRIGLYCERIDES (test code = 2232) 111 MG/DL HDL CHOLESTEROL (test code = 2220) 40 MG/DL CALCULATED LDL CHOL (test code = 96 MG/DL 2237) RISK RATIO LDL/HDL (test code = 2.40 RATIO 2238) CBC W/AUTO [id number] 00:00:00 Test Item Value Reference Range Interpretation [...] code = 1015) 135 K/UL CBC W/AUTO [id number] 00:00:00 Test Item Value Reference Range Interpretation [...] code = 1015) 135 K/UL CBC W/AUTO [id number] 00:00:00 Test Item Value Reference Range Interpretation [...] (test code = 1015) 135 K/UL HEMOGLOBIN [id number] 00:00:00 Test Item Value Reference Range Interpretation Comments HEMOGLOBIN A1c (test code = 97716) 5.7 % HEMOGLOBIN [id number] 00:00:00 Test Item Value Reference Range Interpretation Comments HEMOGLOBIN A1c (test code = 28381) 5.7 % HEMOGLOBIN [id number] 00:00:00 Test Item Value Reference Range Interpretation Comments HEMOGLOBIN A1c (test code = 07771) 5.7 % [id number] 00:00:00 Test Item Value Reference Range Interpretation Comments TSH (test code = 2821) 0.2 UIU/ML [id number] 00:00:00 Test Item Value Reference Range Interpretation Comments TSH (test code = 2821) 0.2 UIU/ML [id number] 00:00:00 Test Item Value Reference Range Interpretation Comments TSH (test code = 2821) 0.2 UIU/ML COMPREHENSIVE METABOLIC [id number] 00:00:00 Test Item Value Reference Range Interpretation Comments GLUCOSE (test code = 2217) 103 MG/DL BUN (test code = 2208) 16 MG/DL CREATININE (test code = 2214) 0.77 MG/DL eGFR AMER. (test code 104 ML/MIN/1.73 = 85899) eGFR NON- AMER. (test 90 ML/MIN/1.73 code = 15565) CALCULATED BUN/CREAT (test 21 RATIO code = [...] code = 2219) 19 U/L COMPREHENSIVE METABOLIC [id number] 00:00:00 Test Item Value Reference Range Interpretation Comments GLUCOSE (test code = 2217) 103 MG/DL BUN (test code = 2208) 16 MG/DL CREATININE (test code = 2214) 0.77 MG/DL eGFR AMER. (test code 104 ML/MIN/1.73 = 07454) eGFR NON- AMER. (test 90 ML/MIN/1.73 code = 09138) CALCULATED BUN/CREAT (test 21 RATIO code = [...] (test code = 2219) 19 U/L LIPID [id number] 00:00:00 Test Item Value Reference Range Interpretation Comments CHOLESTEROL (test code = 2210) 158 MG/DL TRIGLYCERIDES (test code = 2232) 111 MG/DL HDL CHOLESTEROL (test code = 2220) 40 MG/DL CALCULATED LDL CHOL (test code = 96 MG/DL 2236) RISK RATIO LDL/HDL (test code = 2.40 RATIO 2238) LIPID [id number] 00:00:00 Test Item Value Reference Range Interpretation Comments CHOLESTEROL (test code = 2210) 158 MG/DL TRIGLYCERIDES (test code = 2232) 111 MG/DL HDL CHOLESTEROL (test code = 2220) 40 MG/DL CALCULATED LDL CHOL (test code = 96 MG/DL 7) RISK RATIO LDL/HDL (test code = 2.40 RATIO 2238) CBC W/AUTO [id number] 00:00:00 Test Item Value Reference Range Interpretation [...] code = 1015) 135 K/UL CBC W/AUTO [id number] 00:00:00 Test Item Value Reference Range Interpretation [...] code = 1015) 135 K/UL CBC W/AUTO [id number] 00:00:00 Test Item Value Reference Range Interpretation [...] (test code = 1015) 135 K/UL HEMOGLOBIN [id number] 00:00:00 Test Item Value Reference Range Interpretation Comments HEMOGLOBIN A1c (test code = 01178) 5.7 % HEMOGLOBIN [id number] 00:00:00 Test Item Value Reference Range Interpretation Comments HEMOGLOBIN A1c (test code = 62386) 5.7 % HEMOGLOBIN [id number] 00:00:00 Test Item Value Reference Range Interpretation Comments HEMOGLOBIN A1c (test code = 77896) 5.7 % [id number] 00:00:00 Test Item Value Reference Range Interpretation Comments TSH (test code = 2821) 0.2 UIU/ML [id number] 00:00:00 Test Item Value Reference Range Interpretation Comments TSH (test code = 2821) 0.2 UIU/ML [id number] 00:00:00 Test Item Value Reference Range Interpretation Comments TSH (test code = 2821) 0.2 UIU/ML COMPREHENSIVE METABOLIC [id number] 00:00:00 Test Item Value Reference Range Interpretation Comments GLUCOSE (test code = 2217) 103 MG/DL BUN (test code = 2208) 16 MG/DL CREATININE (test code = 2214) 0.77 MG/DL eGFR AMER. (test code 104 ML/MIN/1.73 = 37105) eGFR NON- AMER. (test 90 ML/MIN/1.73 code = 49477) CALCULATED BUN/CREAT (test 21 RATIO code = [...] code = 2219) 19 U/L COMPREHENSIVE METABOLIC [id number] 00:00:00 Test Item Value Reference Range Interpretation Comments GLUCOSE (test code = 2217) 103 MG/DL BUN (test code = 2208) 16 MG/DL CREATININE (test code = 2214) 0.77 MG/DL eGFR AMER. (test code 104 ML/MIN/1.73 = 89798) eGFR NON- AMER. (test 90 ML/MIN/1.73 code = 91282) CALCULATED BUN/CREAT (test 21 RATIO code = [...] (test code = 2219) 19 U/L LIPID [id number] 00:00:00 Test Item Value Reference Range Interpretation Comments CHOLESTEROL (test code = 2210) 158 MG/DL TRIGLYCERIDES (test code = 2232) 111 MG/DL HDL CHOLESTEROL (test code = 2220) 40 MG/DL CALCULATED LDL CHOL (test code = 96 MG/DL 2237) RISK RATIO LDL/HDL (test code = 2.40 RATIO 2238) LIPID [id number] 00:00:00 Test Item Value Reference Range Interpretation Comments CHOLESTEROL (test code = 2210) 158 MG/DL TRIGLYCERIDES (test code = 2232) 111 MG/DL HDL CHOLESTEROL (test code = 2220) 40 MG/DL CALCULATED LDL CHOL (test code = 96 MG/DL 2237) RISK RATIO LDL/HDL (test code = 2.40 RATIO 2238) CBC W/AUTO [id number] 00:00:00 Test Item Value Reference Range Interpretation [...] code = 1015) 135 K/UL CBC W/AUTO [id number] 00:00:00 Test Item Value Reference Range Interpretation [...] code = 1015) 135 K/UL CBC W/AUTO [id number] 00:00:00 Test Item Value Reference Range Interpretation [...] (test code = 1015) 135 K/UL HEMOGLOBIN [id number] 00:00:00 Test Item Value Reference Range Interpretation Comments HEMOGLOBIN A1c (test code = 95610) 5.7 % HEMOGLOBIN [id number] 00:00:00 Test Item Value Reference Range Interpretation Comments HEMOGLOBIN A1c (test code = 78517) 5.7 % HEMOGLOBIN [id number] 00:00:00 Test Item Value Reference Range Interpretation Comments HEMOGLOBIN A1c (test code = 74838) 5.7 % [id number] 00:00:00 Test Item Value Reference Range Interpretation Comments TSH (test code = 2821) 0.2 UIU/ML [id number] 00:00:00 Test Item Value Reference Range Interpretation Comments TSH (test code = 2821) 0.2 UIU/ML [id number] 00:00:00 Test Item Value Reference Range Interpretation Comments TSH (test code = 2821) 0.2 UIU/ML
[2023-10-28 17:58] LABS: Urine Bacteria None Seen /HPF (<20); Urine RBC >50 /HPF (None Seen); Urine WBC Clump Few /HPF (None Seen)
[2023-10-28 18:06] LABS: Specific Gravity 1.025 (1.005-1.030); Urine Bilirubin 1+ (Negative); Urine Clarity Turbid (Clear); Urine Color Dark-Yellow (Yellow); Urine Glucose Negative (Negative)
[2023-10-28 18:07] LABS: Urine Blood 3+ (Negative); Urine Protein 3+ (Negative); Urine pH 6.5 (5.0-7.0)
--- NOTE | 2023-10-28 18:20 | EDPHYS ---
Physician Documentation [facility] Name: Dionne Robledo Age: 58 yrs Sex: Female : 1965 Arrival Date: 10/28/2023 Time: 17:04 Bed 11 Private MD: F[facility] ED Physician Edinson Rod HPI: 10/28 17:14 This 58 yrs old Female presents to ER via Ambulatory with complaints of kb Urinary Problem. 17:14 Patient is a 58-year-old female who presents for pain with urination for 3 days. kb Reports pain to suprapubic area. Denies fever. Historical: - Allergies: 17:13 Codeine; cm10 - PMHx: 17:13 stroke; cm10 - PSHx: 17:13 Appendectomy; Cholecystectomy; Left ankle; cm10 - Immunization history:: Adult Immunizations unknown. - Social history:: Smoking status: Patient denies any tobacco usage or history of. ROS: 17:14 Constitutional: Negative for fever, chills, and weight loss, kb 17:14 : Positive for burning with urination, 17:14 All other systems are negative, 17:15 Abdomen/GI: Positive for abdominal pain, of the suprapubic area, kb Exam: 17:14 Constitutional: This is a well developed, well nourished patient who is awake, alert, kb and in no acute distress. Head/Face: Normocephalic, atraumatic. ENT: Moist Mucous membranes Cardiovascular: Regular rate Respiratory: Respirations even and unlabored. No increased work of breathing. Talking in full sentences Abdomen/GI: Soft, non-tender. No distention Skin: Warm, dry with normal turgor. Normal color. MS/ Extremity: Pulses equal, no cyanosis. Neurovascular intact. Full, normal range of motion. Neuro: Awake and alert, GCS 15, oriented to person, place, time, and situation. Moves all extremities. Normal gait. Vital Signs: 17:12 BP 132 / 79; Pulse 75; Resp 18; Temp 97.9; Pulse Ox 100% ; Weight 81.65 kg; Height 5 cm10 ft. 2 in. ; Pain 10/10; 17:12 Body Mass Index 32.92 (81.65 kg, 157.48 cm) cm10 17:12 Pain Scale: Adult cm10 MDM: 17:08 Patient medically screened. kb 17:14 Data reviewed: vital signs, nurses notes. kb 17:15 Differential diagnosis: kidney stone, nonspecific abdominal pain, urinary tract kb infection. 18:20 Counseling: I had a detailed discussion with the patient and/or guardian regarding the kb historical points, exam findings, and any diagnostic results supporting the discharge/admit diagnosis, lab results, the need for outpatient follow up, a family practitioner, to return to the emergency department if symptoms worsen or persist or if there are any questions or concerns that arise at home. 10/28 17:13 Order name: Urinalysis w/ reflexes; Complete Time: 18:15 kb 10/28 18:10 Order name: Urine Culture EDMS Administered Medications: 18:49 Drug: Ketorolac IM 30 mg IM once Route: IM; Site: left ventrogluteal; iw 18:49 Drug: Amoxicillin-Clavulanate PO 875 mg PO once Route: PO; iw Disposition Summary: 10/28/23 18:20 Discharge Ordered Notes: Location: Home kb Condition: Stable kb Diagnosis - UTI/ Urinary tract infection, site not specified kb Followup: kb - With: Emergency Department - When: As needed - Reason: Worsening of condition Followup: kb - With: Private Physician - When: 2 - 3 days - Reason: Recheck today's complaints, Continuance of care, Re-evaluation by your physician Discharge Instructions: - Discharge Summary Sheet kb - Urinary Tract Infection, Adult, [id number] kb Forms: - Medication Reconciliation Form kb - Thank You Letter kb - Antibiotic Education kb - Prescription Opioid Use kb - Patient Portal Instructions kb - Leadership Thank You Letter kb - Work release form iw Prescriptions: - Augmentin 875-125 mg Oral Tablet - take 1 tablet ORAL route every 12 hours for 10 days; 20 tablet; Refills: 0, kb Product Selection Permitted Signatures: Dispatcher [employer] Lizeth Sandhu, MELISSA MADDEN-Namita Brody, RN RN Ruth Garcia RN RN cm10
--- NOTE | 2023-10-28 18:20 | ER ---
Nurse's Notes [facility] Name: Dionne Robledo Age: 58 yrs Sex: Female : 1965 Arrival Date: 10/28/2023 Time: 17:04 Bed 11 Private MD: Shadi Penn Diagnosis: UTI/ Urinary tract infection, site not specified Presentation: 10/28 17:12 Chief complaint: Patient states: burning with urination onset Sunday. Pt denies any cm10 fever. Pt also report pelvic pain. Coronavirus screen: Vaccine status: Patient reports receiving the 2nd dose of the covid vaccine. Client denies travel out of the [place] in the last 14 days. Ebola Screen: Patient denies travel to an Ebola-affected area in the 21 days before illness onset. No symptoms or risks identified at this time. Initial Sepsis Screen: Does the patient meet any 2 criteria? No. Patient's initial sepsis screen is negative. Does the patient have a suspected source of infection? No. Patient's initial sepsis screen is negative. Risk Assessment: Do you want to hurt yourself or someone else? Patient reports no desire to harm self or others. Onset of symptoms was October 28, 2023. 17:12 Method Of Arrival: Ambulatory cm10 17:12 Acuity: ANDRÉS 4 cm10 Triage Assessment: 17:14 General: Appears in no apparent distress. comfortable, Behavior is calm, cooperative. cm10 Pain: Complains of pain in pelvis. Neuro: No deficits noted. Level of Consciousness is awake, alert, Oriented to person, place, time, situation. : Reports burning with urination, urinary frequency. Historical: - Allergies: 17:13 Codeine; cm10 - PMHx: 17:13 stroke; cm10 - PSHx: 17:13 Appendectomy; Cholecystectomy; Left ankle; cm10 - Immunization history:: Adult Immunizations unknown. - Social history:: Smoking status: Patient denies any tobacco usage or history of. Screenin:41 [facility] ED Fall Risk Assessment (Adult) Score/Fall Risk Level 0 - 2 = Low Risk. Abuse iw screen: Denies threats or abuse. Denies injuries from another. Nutritional screening: No deficits noted. Tuberculosis screening: No symptoms or risk factors identified. Assessment: 17:40 General: Appears in no apparent distress. Behavior is calm, cooperative. Neuro: Level iw of Consciousness is awake, alert, obeys commands, Oriented to person, place, time, situation. Cardiovascular: Patient's skin is warm and dry. Respiratory: Respiratory effort is even, unlabored, Respiratory pattern is regular. : Reports burning with urination, pain with urination. Derm: Skin is intact, is healthy with good turgor. Musculoskeletal: Range of motion: intact in all extremities. Vital Signs: 17:12 BP 132 / 79; Pulse 75; Resp 18; Temp 97.9; Pulse Ox 100% ; Weight 81.65 kg; Height 5 cm10 ft. 2 in. ; Pain 10/10; 17:12 Body Mass Index 32.92 (81.65 kg, 157.48 cm) cm10 17:12 Pain Scale: Adult cm10 ED Course: 17:06 Patient arrived in ED. mr 17:07 Shadi Penn DO is Private Physician. mr 17:07 Lizeth Wilcox, [facility] kb 17:07 Edinson Rod MD is Attending Physician. kb 17:13 Triage completed. cm10 17:14 Arm band placed on Patient placed in an exam room, on a stretcher. cm10 17:39 Namita Dent, RN is Primary Nurse. iw 17:39 Urinalysis w/ reflexes Sent. iw 18:53 Patient has correct armband on for positive identification. iw 18:53 Provided Education on: . iw 18:53 No provider procedures requiring assistance completed. Patient did not have IV access iw during this emergency room visit. Administered Medications: 18:49 Drug: Ketorolac IM 30 mg IM once Route: IM; Site: left ventrogluteal; iw 18:49 Drug: Amoxicillin-Clavulanate PO 875 mg PO once Route: PO; iw Medication: 17:41 VIS not applicable for this client. iw Outcome: 18:20 Discharge ordered by . kb 18:26 Discharged to home ambulatory, iw 18:26 Condition: stable 18:26 Discharge instructions given to patient, Instructed on discharge instructions, follow up and referral plans. medication usage, Demonstrated understanding of instructions, follow-up care, medications, Prescriptions given X 1, 18:53 Patient left the ED. iw Addendum: 10/31/2023 16:18 Addendum: Culture Results: No further action required. Other: Feeling better. Following l l1 up with PCP tomorrow. Bacteria is resistant to, has intermediate sensitivity, or is not tested against prescribed antibiotics. Report given to BRITTANEY for further evaluation and then to sole molder for follow up with patient. Signatures: Lizeth Wilcox, MELISSA MADDEN-Kourtney Fernández, Leno Burr Namita Dent, RN JAHAIRA iw Shefali Hickey RN RN ll1 Ruth Ramirez RN RN cm10
[2023-10-28] MEDS ORDERED: AMOX/K CLAV 875 MG TAB ONE (18:58)
[2023-10-28] MEDS ORDERED: KETOROLAC 30 MG/ML INJ ONE (18:59)
[2023-10-28 19:01] VITALS: BP 132/79; TEMP 97.9; O2SAT 100
== END 2023-10-28 18:53 | disposition home or self-care (01) ==
LOC: ER 17:04
DX: N39.0 Urinary tract infection, site not specified (principal); Z88.5 Allergy status to narcotic agent
CPT/HCPCS: 81001; 87086; 87088; 96372; 99284

== ENCOUNTER 2025-04-16 08:29 | Day surgery (SDC) | payer OTHER ==
[2025-04-16 08:37] LABS: Absolute Lymphocytes (CBC) 0.6 K/uL (0.7-4.9); Absolute Monocytes 0.5 K/uL (0.1-1.3); Absolute Neutrophil 2.3 K/uL (1.8-8.0); Basophils % 0.8 % (0-1.3); Eosinophils % 0.1 % (0-4.4); Hemoglobin 14.7 g/dL (12.0-15.0); Lymphocytes % 17.2 % (15.3-44.8); MCHC 34.3 g/dL (32.0-36.0); MCV 90.3 fL (80-100); MPV 7.9 fL (7.6-11.3); Monocytes % 15.2 % (3.3-12.3); Neutrophils % 66.7 % (41.7-73.7); Nucleated Red Blood Cells % 0.2 % (0-0); Platelets 133 thou/uL (152-406); RBC Red Blood Cell Count 4.76 M/uL (3.86-4.86); Red Cell Distribution Width 13.9 % (12.1-15.2)
[2025-04-16 08:52] LABS: Anion Gap 11.1 mEq/L (5.0-15.0); Potassium 4.1 mEq/L (3.5-5.1)
[2025-04-16] MEDS: Ringers Lactate 1,000 ML IV ONE (09:00)
[2025-04-16] MEDS ORDERED: ONDANSETRON 4 MG/2 ML VIAL ONE (10:05)
[2025-04-16] MEDS ORDERED: propofoL 200 MG/20 ML VIAL IV ONE (10:05)
[2025-04-16] MEDS ORDERED: LIDOCAINE 1% MPF 5 ML VIAL ONE (10:05)
[2025-04-16] MEDS ORDERED: FENTANYL CITR 100 MCG/2 ML ONE (10:06)
[2025-04-16] MEDS ORDERED: MIDAZOLAM HCL 2 MG/2 ML INJ ONE (10:06)
[2025-04-16] MEDS ORDERED: GLYCOPYRROLATE 0.2 MG/ML SYR ONE (10:34)
[2025-04-16] MEDS: LIDOCAINE HCL/EPINEPHRINE 20 ML MDV ONE (11:00)
[2025-04-16] MEDS ORDERED: KETOROLAC 30 MG/ML INJ ONE (11:25)
[2025-04-16] MEDS: ONDANSETRON 4 MG/2 ML VIAL ONE (11:47)
[2025-04-16] MEDS: MEPERIDINE HCL 25 MG/ML SYR ONE (11:51)
[2025-04-16] MEDS: Ringers Lactate 500 ML IV ONE (12:01)
[2025-04-16 12:06] VITALS: TEMP 97.7
--- NOTE | 2025-04-16 13:07 | OP ---
Date of Procedure: 04/16/2025 Surgeon: Vesna Terry MD Air Traffic Control Manager: No assistants. 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 This was on office colposcopy, endocervical curettage. Postoperative Diagnoses: Mild cervical dysplasia on ectocervix and cervical intraepithelial neoplasi a 3 in the endocervical canal. This was on office colposcopy, endocervical curettage. Procedures Performed: Cervical colposcopy, cold knife conization. Anesthesia: General with LMA and local with lidocaine and epinephrine as a pericervical block. Complications: No complications. Drains: No drains. Specimens: Cervix and large cone with a long stitch at 1 o'clock on the ectocervical margin and a sh ort stitch at 1 o'clock on the endocervical margin and then there was a separate specimen I removed a t 4 o'clock on the deep margin that was excised and handed out. The cervical canal length was 3.5 cm and an adequate cone was obtained. Estimated Blood Loss: Minimal. Condition: Stable. Indications: The patient is a 59-year-old with prolapse. On a Pap smear exam, she had severe dyspl caty. On cervical colposcopy, there was WAYNE 1 on the ectocervix and WAYNE 3 in the endocervical canal on the ECC. All these were sent out for confirmation. Then, we discussed this with the patient. Mirna saavedra wanted to proceed with a hysterectomy; however, we helped her understand that it was very important to do a cold knife conization as a diagnostic tool for us to rule out any invasive disease in the ca nal, which can be a contraindication for a simple hysterectomy and prolapse repair. After understand ing, all this, she consented for this procedure. Description Of Procedure: She was brought in and re-consented in the preoperative area with her [facility] er and her by the side. After questions were answered to their satisfaction, she was taken b ack to the OR. Placed in supine fashion on the operating table, general anesthesia was given. SCDs were started. T jasmeet-out was done. Cervical colposcopy: This was performed by placing a speculum in the vagina to expose the cervix. This was painted with dilute 5% acetic acid. Then, colposcope was used to visualize the cervix. No ectocervical lesions were noted. Cervical conization: The stay sutures were placed at 3 and 9 o'clock positions at the cervicouterine junction and used stay sutures. Then, 20 mL of 1% lidocaine with epinephrine was injected in a circ umferential fashion on the cervix for a paracervical block. Then, conization was performed using the conization knife after having measured the cervical canal length at 3.5 cm. The 11 blade was loaded onto the handle. Then, in a circular fashion, the excision was conducted and the entire colon was r emoved. Long stitch at the ectocervical margin, short stitch at the endocervical margin at 1 o'clock . Then, once the specimen was handed out on close visualization of the endocervical canal posteriorl y between 4 o'clock and 6 o'clock position, there was posterior canal tissue that I deemed prudent to be excised. So, this was excised with an 11 blade on a thin long scalpel williamson and then this was e xcised and handed out for permanent pathology. A circumferential modified Sturmdorf suture with 0 Vicryl and were placed in a locked [facility] ion. Once this was done in a circumferential fashion and tied together, then all the sutures were cu t. Instrument, needle, and sponges were counted. There were correct. She was recovered from anesth esia and taken to PACU in stable condition. She will follow up in 1 week for path results and then w e will plan her prolapse repair with hysterectomy. There was no invasive cancer if there is invasive cancer. Now, she has margin that is positive for WAYNE 3 of the deep margin. We can conse nt her for a simple hysterectomy, counseling her adequately that there is invasive cancer found on e deep margin of the cervix where the chance is very, very unlikely, so she would need a referral to [facility]. The patient seems very eager to proceed with the treatment. SARAH/SHANICE Voice ID: [id number] Report ID: [id number]
[2025-04-16 13:32] VITALS: O2SAT 100
[2025-04-16 13:34] VITALS: BP 108/67
--- NOTE | 2025-04-21 12:39 | EKG ---
Test Date: 2025-04-16 Test Time: 08:23:35 Entry Processor: DEMETRIUS MEASUREMENT RESULTS: Intervals: Rate: 44 [place]: 178 QRSD: 96 QT: 448 QTc: 383 [place]: P: 59 [place]: 178 QRS: -12 T: -2 INTERPRETIVE STATEMENTS: Marked sinus bradycardia Minimal voltage criteria for LVH, may be normal variant Septal infarct, age undetermined Abnormal ECG Compared to ECG 07/13/2023 20:20:31 Myocardial infarct finding now present Atrial fibrillation no longer present T-wave abnormality no longer present Possible ischemia no longer present Electronically Signed On 04-21-25 12:28:54 CDT by Jose Quintanilla
== END 2025-04-16 12:59 | disposition home or self-care (01) ==
LOC: OR 08:29
PROVIDERS: ATTEND Obstetrics & Gynecology
PROC: 0UJH8ZZ Inspection of Vagina and Cul-de-sac, Via Natural or Artificial Opening Endoscopic (ICD-10-PCS; principal; 2025-04-16 10:30)
DX: D06.0 Carcinoma in situ of endocervix (principal); R87.810 Cervical high risk human papillomavirus (HPV) DNA test positive
CPT/HCPCS: 93005; 85025; 80048; 36415; 88307; 57461; J2704; J2003; J2250; J3010; J2175; J2405 ×2; J7120